=== PATIENT | female | born 1970 | race Caucasian/White ===

== ENCOUNTER 2019-07-15 11:52 | Emergency (ER) | payer MEDICAID, SELFPAY ==
[2019-07-15] VITALS (23 sets, daily range): BP systolic 107–128; BP diastolic 53–81; PULSE 63–87; RESP 10–19; TEMP 36.4–36.9; O2SAT 91–98
[2019-07-15] MEDS: Dexamethasone 10 MG/ML VIAL PO (13:13)
--- NOTE | 2019-07-15 13:26 | ED.GENADUL_ITS ---
Discharge Plan Disposition Patient Disposition: HOME Discharge Details Chief Complaint: GenMedical Clinical Impression: Pneumonia Primary Care Provider: Sofy,Local ED Provider: Rahul Alba Home Meds and New Rx's Prescriptions: New doxycycline hyclate 100 mg tablet 100 mg PO BID Qty: 13 RF: 0 Discharge Instructions Instructions: Pneumonia (ED) Additional Instructions: Please drink plenty of fluid to stay hydrated. Take full course of antibiotic as prescribed. Please contact your primary care physician to arrange follow-up. Call tomorrow to arrange timely follow-up. Return to the ER for any worsening or new concerning symptoms. 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 Patient is hypovolemic. We will give IV fluid bolus. Will give naproxen and Decadron 10 mg IV for throat swelling. Considered strep, rapid strep negative. Consider flu, rapid flu negative. Screening ECG was performed and reviewed and interpreted by me: Sinus rhythm 72 bpm, normal axis, nondiagnostic. Plan to check TSH. Consider pneumonia and will check chest x-ray. 14:25 -- Labs reviewed: nondiagnostic. Flu negative. cxr interpreted by radiology: quesion of opacities in the right mid lung - may rep infiltrate. f/u cxr rec'd to document resolution. if findings persist, CT should be obtained. Radiologist Impression : Abnormal Written by JUDITH VELA on 07/15/2019 --Patient reassessed and continues to have sore throat. Given prior history of cystic structure, consider abscess. Plan to obtain CT of the neck. We will also continue down for CT of the chest given chest x-ray finding. 16:15 --Patient reassessed remained stable. Feeling better. CT of the chest was interpreted by radiology: Right upper lobe pneumonia. CT of the neck was interpreted by radiology: Negative. Plan will be to discharge with close outpatient follow-up with primary care physician. Will start doxycycline for pneumonia (given local resistance to azithromycin and patient has penicillin allergy). Disposition decision was made weighing the risks and benefits of hospitalization versus outpatient treatment, the risk for further decompensation, and the patient's wishes. The patient was stable and requested discharge. Prior to discharge, my usual and customary return precautions were reviewed with the patient - this included follow-up instructions and reason to return to the emergency department if condition worsens, does not improve as expected, or other new concerns arise. HPI General Mode of arrival: ambulatory . Date/Time Provider Initiated Documentation: 07/15/19 12:16 . Limitations to Documentation: no limitations . Information obtained by: patient . 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 Patient notes general fatigue and body aches over the past few days. She states that she initially had headache and sore throat on 07/06/2019. Symptoms progressed and she developed sinus congestion and cough as well as fatigue, fever and diffuse body aches. She also notes recent cough. Symptoms are severe. No modifiers. She has diffuse body aches at this time. No headache. She continues to have sore throat. No difficulty swallowing. Patient is concerned as she had similar fever and body aches when she had thyroid storm in the past. Related Data Home Medications Medication Instructions Recorded Confirmed doxycycline hyclate 100 mg PO BID #13 tab 07/15/19 Previous Rx's Medication Instructions Recorded doxycycline hyclate 100 mg PO BID #13 tab 07/15/19 Allergies Allergy/AdvReac Type Severity Reaction Status Date / Time epinephrine Allergy Unverified 07/15/19 12:02 erythromycin base Allergy Unverified 07/15/19 12:02 Latex, Natural Rubber Allergy Unverified 07/15/19 12:02 Penicillins Allergy Unverified 07/15/19 12:02 General Stated Complaint: GenMedical JACOBO: 3 Review of Systems Constitutional Constitutional: Reports fever(s) and Reports lethargy ENT Ears, Nose, Mouth, and Throat: Reports nasal congestion Respiratory Respiratory: Reports cough Gastrointestinal Gastrointestinal: Denies abdominal pain and Denies nausea Musculoskeletal Musculoskeletal: Reports arthralgias Integumentary/Breasts Skin/Breast: Denies rash [facility] Social History Smoking/Tobacco Use Status: Never Substance use type: does not use Do you feel safe at home: Yes Exam Const General: cooperative and no acute distress HENMT Mouth: moist mucous membranes Throat: posterior oropharynx normal and uvula midline Eyes Conjunctivae: normal conjunctivae Sclera: normal sclerae Neck Neck: trachea midline and supple Resp Auscultation: clear to auscultation bilaterally, no rales, no rhonchi and no wheezes Cardio Jugular venous pressure: no JVD Rate: regular rate and not tachycardic Rhythm: regular rhythm GI Palpation: soft, not firm, no guarding, no masses, not rigid and nontender Skin General skin exam: no rashes or lesions noted Neuro General: alert, awake, oriented x3 and tone normal Extrem General: no edema Psych Appearance: grossly normal Mental Status: mental status grossly normal Speech and Movement: speech and movement normal Course Vital Signs Vital signs: Vital Signs Temperature 36.4 C L 07/15/19 11:56 Pulse 87 07/15/19 11:56 Respiratory Rate 18 07/15/19 11:56 Blood Pressure 113/75 07/15/19 11:56 Pulse Oximetry 96 07/15/19 11:56 Temperature 36.9 C 07/15/19 13:16 Temperature Source Oral 07/15/19 13:16 Pulse 79 07/15/19 12:45 Pulse 80 07/15/19 12:45 Respiratory Rate 18 07/15/19 12:45 Respiratory Effort Non-Labored 07/15/19 12:02 Blood Pressure 121/81 07/15/19 12:45 Blood Pressure Mean 91 07/15/19 12:45 Blood Pressure Position Sitting 07/15/19 11:56 Pulse Oximetry 97 07/15/19 12:45 Oxygen Delivery Method Room Air 07/15/19 11:56 Oxygen Flow Rate 0 07/15/19 11:56 Pain Level 10 07/15/19 11:56 Lab/Test Results Lab/Test Results: 07/15/19 12:20 Nasopharynx Influenza Types A,B Antigen - Final 07/15/19 12:17 Pharynx Streptococcus Screen (RASHMI) - Pending POC Strep Test-AMANDA(Rapid) Start: 07/15/19 12:27 Freq: .Rapid Strep Test Status: Active Protocol: Document 07/15/19 12:28 MR (Rec: 07/15/19 12:28 MR [id number]) Strep test-AMANDA(Rapid)-POC POC-Strep test-AMANDA (Rapid) Negative POC-Strep test-AMANDA (Rapid) Negative
[2019-07-15] MEDS: Naproxen 500 MG TAB PO (13:31)
[2019-07-15] MEDS: Lactated Ringers 1,000 ML 1000 ML IV (13:31)
--- NOTE | 2019-07-15 13:53 | DI.RAD_ITS ---
EXAM: XR CHEST 2V PA AND LATERAL INDICATION: cough. COMPARISON: No exams were available for comparison TECHNIQUE: 2D digital imaging was performed. FINDINGS: Heart size and pulmonary vasculature within normal limits. No pleural effusions or pneumothoraces ar e identified. There is a question of small opacities in the right mid lung. The lungs are otherwise clear. The bones are intact. IMPRESSION: Question of opacities in the right mid lung. This may represent an infiltrate. A follow-up chest x- ray to document clearing of the opacities is recommended. If the findings persist, a CT scan of the chest should be obtained for further evaluation.
[2019-07-15 13:54] LABS: Abs Immature Grans 0.02 k/cumm (0.0-0.09); Absolute Basophil Count 0.03 k/cumm (0.0-0.2); Absolute Eosinophil Count 0.22 k/cumm (0.0-0.7); Absolute Lymphocyte Count 2.04 k/cumm (1.2-3.4); Absolute Monocyte Count 0.81 k/cumm (0.11-0.7); Absolute Neutrophil Count 6.93 k/cumm (1.2-6.7); Basophils % 0.3; Eosinophils % 2.2; HCT 38.5 % (36.0-46.0); HGB 12.6 g/dL (12.0-15.5); Immature Grans % 0.2; Lymphocytes % 20.3; Mean Corp. HGB Concentration 32.7 g/dL (32.0-36.0); Mean Corpuscular Hemoglobin 26.4 pg (27.0-33.0); Mean Corpuscular Volume 80.7 fL (80-95); Monocytes % 8.1; Neutrophils % 68.9; Platelet Count 274 x1000/uL (130-400); RBC 4.77 m/cumm (4.00-5.20); RBC Distribution Width 13.1 % (11.7-14.6); White Blood Cell Count 10.05 k/cumm (4.4-10.8)
[2019-07-15 14:04] LABS: ALT 25 U/L (14-59); AST 17 U/L (15-37); Albumin 3.8 g/dL (3.4-5.0); Alkaline Phosphatase 124 U/L (46-116); Anion Gap 10.3 mmol/L (3-11); BUN 9 mg/dL (7-18); Bilirubin, Total 0.9 mg/dL (0.2-1.0); CO2 27.7 mmol/L (21.0-32.0); CREATININE 0.73 mg/dL (0.55-1.02); Calcium 9.4 mg/dL (8.5-10.1); Chloride 104 mmol/L (98-107); FREE T4 1.12 ng/dL (0.76-1.46); Glucose 93 mg/dL (74-106); Magnesium 1.9 mg/dL (1.8-2.4); Potassium 3.7 mmol/L (3.5-5.1); Sodium 142 mmol/L (136-145); TSH 1.78 uIU/mL (0.36-3.74); Total Protein 7.8 g/dL (6.4-8.2)
[2019-07-15 14:06] LABS: Troponin I < 0.05 ng/Ml (<0.06)
[2019-07-15] MEDS: Omnipaque 350 MG/ML 100 ML BTL IJ (15:04)
--- NOTE | 2019-07-15 15:04 | DI.CT_ITS ---
EXAM: CT NECK CHEST W CLINICAL HISTORY: sore throat, cystic mass in neck in past, PNA cxr? TECHNIQUE: Imaging Protocol: Axial computed tomography images with coronal and sagittal reformatted images were created and reviewed CONTRAST MATERIAL: Intravenous: Omnipaque 350 Contrast volume:100 mL contrast route:IV - Oral: No COMPARISON: XR CHEST 2V PA LATERAL from 07/15/2019 FINDINGS: CT NECK: Parotids/submandibular: Normal. Lymphadenopathy: There is scattered lymph nodes seen along the level one to level three all measurin g less than 8 mm in short axis diameter which are physiologic in nature. Carotids/Jugular: Within normal limits. Soft tissues: The floor the mouth is unremarkable. The epiglottis and vocal cords are within normal limits. Images through both lung apices are unremarkable. Thyroid gland: Unremarkable Oropharynx: Unremarkable. Nasopharynx: Unremarkable. Sinuses: Small mucous retention cysts or polyps are seen in the floors of the maxillary sinuses bilat erally. The remaining visualized paranasal sinuses are clear. Orbits: Unremarkable. CT CHEST: The thoracic aorta is intact. No aneurysmal dilatation is present. Heart: No cardiomegaly. No pericardial effusion. No coronary artery calcifications. Lymph nodes: No significant thoracic adenopathy. Pleural space: No effusion or pneumothorax. Tracheobronchial tree: Unremarkable. Lungs: There is a nodular ground-glass infiltrate in the right upper lobe. This corresponds to the f indings on the chest x-ray. Mild dependent atelectatic changes are seen in the lung bases. No other focal consolidating infiltrates are seen. Bones: Within normal limits for the patient's age. Pulmonary arteries: Contrast bolus timing suboptimal for evaluation for pulmonary emboli. IMPRESSION: 1. Right upper lobe nodular ground-glass infiltrate. Findings are suspicious for pneumonia. A follo w-up chest x-ray should be considered to document complete resolution of the infiltrate. 2. Unremarkable CT scan of the neck. 3. The findings were discussed with the Emergency Department on the date of the examination. DATA REPOSITORY: All CT scans at this facility are submitted to the National Radiology Data Registry (NRDR) Dose Index Registry (DIR) with the [employer] ([employer]). RADIATION OPTIMIZATION: All CT scans at this facility use at least one of these dose optimization te chniques: automated exposure control; mA and/or kV adjustment per patient size (includes targeted exa ms where dose is matched to clinical indication); or iterative reconstruction.
[2019-07-15] MEDS: Normal Saline - Diluent 50 ML VIAL IV (15:07)
[2019-07-15] MEDS: Doxycycline Hyclate 100 MG CAP PO (16:26)
== END 2019-07-15 16:49 | disposition home or self-care (01) ==
PROVIDERS: Emergency Provider Student in an Organized Health Care Education/Training Program
DX: J18.9 Pneumonia, unspecified organism (principal); R09.81 Nasal congestion; J02.9 Acute pharyngitis, unspecified; E86.1 Hypovolemia
CPT/HCPCS: 36415; 70491; 80053; 87449; 87880; 93005; 96360; 99285; 71046; 71260; 83735; 84439; 84443; 84484; 85025; 87081; 93010; 99284; J1100; J3490

== ENCOUNTER 2020-11-16 09:24 | Emergency (ER) | payer MEDICAID, SELFPAY ==
[2020-11-16 09:26] VITALS: BP 159/90; PULSE 76; TEMP 36.6; O2SAT 97
--- NOTE | 2020-11-16 09:45 | DI.CT_ITS ---
EXAM: CT ABDOMEN PELVIS W INDICATION: RLq and flank pain, no po contrast. COMPARISON: No exams were available for comparison TECHNIQUE: FINDINGS: CT examination of the abdomen and pelvis was performed with a bolus infusion of 100 cc of Omnipaque 3 50. Images obtained through the lung bases are unremarkable. The liver is unremarkable in appearance except for a tiny presumed left hepatic lobe cyst seen anteri nini.. Gallbladder and bile ducts are CT normal. Pancreas appears normal. Spleen is unremarkable in appearance. Adrenals appear normal. The kidneys are unremarkable with no evidence of hydronephrosis, nephrolithiasis, or renal mass.. Ur inary bladder unremarkable. Abdominal aorta is of normal diameter and no major vascular abnormality is seen. No abdominal wall hernia. No abdominal or pelvic adenopathy. CHALKER SOLES structures appear intact. Appendix is normal. No evidence of diverticulitis or bowel obstruction. IMPRESSION: Negative CT examination of the abdomen and pelvis. RADIATION DOSE DELIVERED: 1,173.05mGy.cm Total DLP 1,173.05mGy.cm Total DLP RADIATION OPTIMIZATION: All CT scans at this facility use at least one of these dose optimization te chniques: automated exposure control; mA and/or kV adjustment per patient size (includes targeted exa ms where dose is matched to clinical indication); or iterative reconstruction.
--- NOTE | 2020-11-16 09:45 | RT.EKG_ITS ---
APPROVED REPORT Exam: Resting ECG Patient Location: E HR:62 bpm ECG Measurements Heart Rate 62 AXIS MS 162 P 34 QRSd 85 QRS 66 QT 402 T 42 QTc 409 Conclusion Sinus rhythm...normal P axis, V-rate 60- 99
[2020-11-16 10:00] LABS: Bilirubin Negative (Negative); Blood Small (Negative); Clarity Clear (Clear); Glucose Negative (Negative); Ketones Negative (Negative); Leukocyte Esterase Negative (Negative); Nitrite Negative (Negative); Urobilinogen 0.2 EU/dL (Up TO 0.2); pH 5.5 (5-8)
--- NOTE | 2020-11-16 10:01 | W.ED.GENAD ---
Discharge Plan Disposition Patient Disposition: HOME Condition: Good Discharge Details Clinical Impression: Abdominal pain, Hematuria Primary Care Provider: Billie Ly ED Provider: Vanna Tiwari Home Meds and New Rx's Prescriptions: New dicyclomine 20 mg tablet 20 mg PO TID Qty: 14 RF: 0 famotidine [Pepcid] 20 mg tablet 20 mg PO DAILY Qty: 10 RF: 0 Continued pantoprazole 20 mg tablet,delayed release (DR/EC) 20 mg PO DAILY RF: 0 naproxen 500 mg tablet 500 mg PO DAILY PRNRF: 0 Discharge Instructions Instructions: Abdominal Pain (ED) Additional Instructions: Please follow-up with your primary care physician, please follow-up with urology regarding need for blood in your urine Return earlier should you have new or worsening complaints You may try taking the Bentyl as needed for about abdominal pain You may also try discontinuing your pantoprazole and taking the Pepcid instead Referrals: Tavo Montemayor MD [ [facility] PHYSICIAN] - Medical Decision Making CT abdomen pelvis does not show acute pathology per radiology interpretation of my review Diagnostic blood work does not show acute pathology, urinalysis shows evidence of red blood cell Instructed to follow-up with urology although she saw him several months ago Afebrile and nontoxic Return precautions discussed and patient expressed understanding Blood glucose within normal limits, urinalysis does not show acute pathology Recheck in 1 week recommended Differential Diagnosis Differential Diagnosis: Urinary tract infection, bowel obstruction, hypothyroidism, diabetes Medical Records Medical records reviewed: Yes I reviewed the patient's medical records. Lab Data Lab results reviewed: Yes I reviewed the patient's lab results. HPI This 60-year-old female presents with report of abdominal distention, pain in her flank right lower quadrant, general feeling of tiredness, intermittent nausea, urinary frequency. Patient states she felt like this for the past several months but has been worsening this week in terms of her pain. She describes the pain as a cramping sensation. She denies painful urination. She denies any chest pain or shortness of breath. She denies any dizziness or weakness. She denies any new medications. She was last seen by her primary care physician in March. General Date/Time Provider Initiated Documentation: 11/16/20 09:24. Related Data Home Medications Medication Instructions Recorded Confirmed dicyclomine 20 mg PO TID #14 tab 11/16/20 famotidine [Pepcid] 20 mg PO DAILY #10 tab 11/16/20 naproxen 500 mg PO DAILY PRN 11/16/20 11/16/20 pantoprazole 20 mg PO DAILY 11/16/20 11/16/20 Previous Rx's Medication Instructions Recorded dicyclomine 20 mg PO TID #14 tab 11/16/20 famotidine [Pepcid] 20 mg PO DAILY #10 tab 11/16/20 Allergies Allergy/AdvReac Type Severity Reaction Status Date / Time epinephrine Allergy Unverified 11/16/20 09:35 erythromycin base Allergy Unverified 11/16/20 09:35 Latex, Natural Rubber Allergy Unverified 11/16/20 09:35 Penicillins Allergy Unverified 11/16/20 09:35 General Stated Complaint: GenMedical JACOBO: 3 Review of Systems Narrative: Review of systems obtained x7 aside from indication in [facility] Social History Smoking/Tobacco Use Status: Never Smoking risk assessment performed?: Yes Alcohol Intake: current Alcohol Intake frequency: holidays/special occasions only Drug use: Never Substance use type: does not use Do you feel safe at home: Yes Do you feel safe in your relationship?: Yes Exam Const General: cooperative Orientation: alert and oriented x3 HENMT Head: normal to inspection Mouth: oral mucosae normal Chest Chest: normal inspection of the chest Resp Effort & Inspection: normal respiratory effort Auscultation: clear to auscultation bilaterally Cardio Rate: regular rate Rhythm: regular rhythm GI Inspection: normal to inspection Auscultation: normal bowel sounds Other: Mild tenderness with palpation in the right lower quadrant and right flank bilaterally, no abdominal bruit or pulsatile mass Skin General skin exam: no rashes or lesions noted Neuro General: patient alert and patient oriented x3 Course Vital Signs Vital signs: Vital Signs Temperature 36.6 C 11/16/20 09:26 Pulse 76 11/16/20 09:26 Blood Pressure 159/90 H 11/16/20 09:26 Pulse Oximetry 97 11/16/20 09:26 Temperature 36.6 C 11/16/20 09:26 Temperature Source Temporal Artery Scan 11/16/20 09:26 Pulse 76 11/16/20 09:26 Respiratory Effort Non-Labored 11/16/20 09:33 Blood Pressure 159/90 H 11/16/20 09:26 Blood Pressure Position Sitting 11/16/20 09:26 Pulse Oximetry 97 11/16/20 09:26 Oxygen Delivery Method Room Air 11/16/20 09:26 Oxygen Flow Rate 0 11/16/20 09:26 Pain Level 5 11/16/20 09:26
[2020-11-16 10:12] LABS: RBC 0-2 HPF (0-2); WBC 0-2 HPF (0-5)
[2020-11-16 10:13] LABS: Bacteria Negative HPF (Negative); C & S Indicated? No; Casts Negative LPF (Negative); Crystals Negative HPF (Negative); Epithelial Cells Rare HPF (Negative); Mucus Negative (Negative)
[2020-11-16 11:27] LABS: Abs Immature Grans 0.03 10^3/uL (0.0-0.06); Absolute Basophil Count 0.07 10^3/uL (0.0-0.2); Absolute Eosinophil Count 0.14 10^3/uL (0.0-0.7); Absolute Lymphocyte Count 2.65 10^3/uL (1.2-3.4); Absolute Monocyte Count 0.43 10^3/uL (0.1-0.8); Absolute Neutrophil Count 5.34 10^3/uL (1.2-6.7); Basophils % 0.8; Eosinophils % 1.6; HGB 12.5 g/dL (11.2-15.7); Immature Grans % 0.3; Lymphocytes % 30.6; MCH 25.9 pg (27.0-33.0); MCHC 32.1 % (32.0-36.0); MCV 80.7 fL (80-95); MPV 9.1 fL (8.0-11.0); Neutrophils % 61.7; Nucleated RBC 0 %; Platelet Count 280 10^3/uL (130-400); RBC 4.83 10^6/uL (3.93-5.22); RDW-SD 38.2 fL; WBC 8.66 10^3/uL (4.4-10.8)
[2020-11-16 11:53] LABS: ALT 36 U/L (14-59); AST 22 U/L (15-37); Albumin 4.1 g/dL (3.4-5.0); Alkaline Phosphatase 109 U/L (46-116); Anion Gap 10.1 mmol/L (3-11); BUN 14 mg/dL (7-18); Bilirubin, Total 0.7 mg/dL (0.2-1.0); CO2 26.9 mmol/L (21.0-32.0); CREATININE 0.9 mg/dL (0.55-1.02); Calcium 9.5 mg/dL (8.5-10.1); Chloride 106 mmol/L (98-107); Glucose 85 mg/dL (74-106); Lipase 142 U/L (73-393); Potassium 3.8 mmol/L (3.5-5.1); Sodium 143 mmol/L (136-145); TSH (W/Ref FT4) 2.31 uIU/mL (0.36-3.74); Total Protein 7.7 g/dL (6.4-8.2)
[2020-11-16 11:56] LABS: Troponin I < 0.05 ng/mL (<0.06)
[2020-11-16] MEDS: Omnipaque 350 MG/ML 100 ML BTL IJ (12:04)
[2020-11-16] MEDS: Normal Saline - Diluent 50 ML VIAL IV (12:05)
[2020-11-16 12:11] VITALS: BP 111/64; PULSE 65; RESP 16; TEMP 36.4; O2SAT 100
[2020-11-16 12:13] VITALS: RESP 16
== END 2020-11-16 12:39 | disposition home or self-care (01) ==
PROVIDERS: Emergency Provider Physician Assistant; PCP Family Medicine
DX: R31.9 Hematuria, unspecified (principal); R10.31 Right lower quadrant pain
CPT/HCPCS: 80053; 83690; 93005; 99285; 74177; 81003; 81015; 84443; 84484; 85025; 93010; 99283; J3490

== ENCOUNTER 2021-03-04 04:47 | Outpatient (CLI) | payer MEDICAID, SELFPAY ==
--- NOTE | 2021-03-04 | DI.MAMMO_ITS ---
Exam(s) MAMMO SCREENING EXAM: MAMMO SCREENING CLINICAL HISTORY: SCREENING, Z12.39. TECHNIQUE: Bilateral full field digital CC and MLO mammographic images were obtained with 3D tomosyn thesis and utilizing computer aided detection (CAD). COMPARISON: Prior outside mammograms dating back to 2012, the most recent being February 2018. FINDINGS: In the posterior medial aspect of the left breast there is a 5 x 4 millimeter noncalcified nodule lo cated 12 cm in from the nipple, towards the superior aspect breast. In the opposite-right breast there is suggestion 7 x 5 millimeter noncalcified nodule laterally, appr oximately 10 cm in from the nipple as seen on the CC 3D view. No malignant-appearing microcalcification groups evident in either breast There is no significant architectural distortion nor skin thickening-retraction. IMPRESSION: Single nodular density in each breast. Spot compression cc views both breast recommended as well as bilateral breast ultrasound. BI-RADS Category 0 - Assessment Incomplete: Need additional imaging evaluation Breast Density - Category C - Heterogeneously dense Breast density Category C or D implies that the patient has dense breast tissue. Dense breast tissue can make it harder to find cancer on a mammogram. Dense breast tissue is also associated with an incr eased risk of breast cancer. This information about the result of the mammogram report was provided to the patient to raise their awareness. Use this report when you speak with the patient about their risks for breast cancer, which includes their family history. At that time, you may recommend additional screening tests (Ultrasoun d or MRI) as these tests may add significant information. A negative radiographic report should not delay biopsy if a dominant or clinically suspicious mass is present. Up to ten percent of cancers are not identified on mammography. A negative report may reinforce clinical impression. Adenosis and dense breasts may obscure an underlying neoplasm. False positive reports average 6 to 10%. Patient will receive a letter notifying them of these results.
== END 2021-03-04 05:07 ==
PROVIDERS: PCP Nurse Practitioner Family; Visit Provider Nurse Practitioner Family
DX: Z12.31 Encounter for screening mammogram for malignant neoplasm of breast (principal); R92.8 Other abnormal and inconclusive findings on diagnostic imaging of breast
CPT/HCPCS: 77063; 77067

== ENCOUNTER 2021-03-08 14:33 | Outpatient (REF) | payer MEDICAID, SELFPAY ==
[2021-03-08 19:57] LABS: HCT 38.5 % (36.0-46.0); HGB 12.5 g/dL (11.2-15.7); MCH 26.1 pg (27.0-33.0); MCHC 32.5 % (32.0-36.0); MCV 80.4 fL (80-95); MPV 10.3 fL (8.0-11.0); Platelet Count 292 10^3/uL (130-400); RBC 4.79 10^6/uL (3.93-5.22); RDW 13.4 % (11.7-14.6); RDW-SD 39.2 fL; WBC 7.86 10^3/uL (4.4-10.8)
[2021-03-08 20:00] LABS: ESR 25 mm/hr (0-30)
[2021-03-08 20:17] LABS: Anion Gap 12.5 mmol/L (3-11); BUN 12 mg/dL (7-18); CO2 25.5 mmol/L (21.0-32.0); CREATININE 0.9 mg/dL (0.55-1.02); Calcium 9.5 mg/dL (8.5-10.1); Chloride 106 mmol/L (98-107); Glucose 86 mg/dL (74-106); Potassium 3.8 mmol/L (3.5-5.1); Sodium 144 mmol/L (136-145); TSH (W/Ref FT4) 1.62 uIU/mL (0.36-3.74)
[2021-03-09 16:17] LABS: Rheumatoid Factor <8.6 IU/mL (<12.0)
== END 2021-03-08 14:34 | disposition home or self-care (01) ==
LOC: NCHCN 14:33
PROVIDERS: PCP Nurse Practitioner Family; Visit Provider Nurse Practitioner Family
DX: M25.561 Pain in right knee (principal); M25.562 Pain in left knee; M79.7 Fibromyalgia; Q79.60 Ehlers-Danlos syndrome, unspecified; M06.9 Rheumatoid arthritis, unspecified; R60.9 Edema, unspecified
CPT/HCPCS: 80048; 85027; 85652; 84443; 86431

== ENCOUNTER 2021-03-25 03:07 | Outpatient (CLI) | payer MEDICAID, SELFPAY ==
--- NOTE | 2021-03-25 | DI.MAMMO_ITS ---
Exam(s) US BREAST RT LIMITED US BREAST LT LIMITED MG MAMMO SCREEN CALL BACK BI EXAM: MG MAMMO SCREEN CALL BACK BI and U/S breast bilateral limited CLINICAL HISTORY: F/U MAMMO, BILAT NODULES. TECHNIQUE: Craniocaudal and mediolateral oblique Full Field Digital Mammography views of the bilater al breast with Computer Aided Diagnosis followed by Tomosynthesis and bilateral breast ultrasound. COMPARISON: Priors available for comparison. FINDINGS: Mammography/Tomosynthesis: Masses/Architectural Distortion: There is again seen a well-circumscribed nodule in the outer right b reast. There is also well-circumscribed nodule which persists in the medial aspect of the left breas t. Microcalcifictions: No suspicious pleomorphic-type are seen. Skin Thickening/Nipple Retraction: None. Bilateral breast US: Echotexture: Normal appearance of the glandular tissue. Shadowing: No suspicious foci. Cyst: In the right breast, at the 8 o'clock position 7 cm from the nipple there is a 0.6 x 0.4 x 0.6 cm cyst with internal debris. This corresponds to the mammographic abnormality. No cystic or solid lesion is seen in the left breast to correspond to the mammographic abnormality. Solid lesions: None seen. Ductal dilation: None. IMPRESSION: 1. No evidence of malignancy is noted. 2. A six-month follow-up bilateral mammogram and ultrasound are requested for re-evaluation. 3. The findings were discussed with the patient on the date of the examination. BI-RADS Category 3 - 6 month - Probably Benign Finding: Recommend follow-up imaging in 6 months Breast Density - Category B - Scattered areas of fibroglandular density Breast density Category C or D implies that the patient has dense breast tissue. Dense breast tissue can make it harder to find cancer on a mammogram. Dense breast tissue is also associated with an incr eased risk of breast cancer. This information about the result of the mammogram report was provided to the patient to raise their awareness. Use this report when you speak with the patient about their risks for breast cancer, which includes their family history. At that time, you may recommend additional screening tests (Ultrasoun d or MRI) as these tests may add significant information. A negative radiographic report should not delay biopsy if a dominant or clinically suspicious mass is present. Up to ten percent of cancers are not identified on mammography. A negative report may reinforce clinical impression. Adenosis and dense breasts may obscure an underlying neoplasm. False positive reports average 6 to 10%. Patient will receive a letter notifying them of these results.
== END 2021-03-25 03:27 ==
PROVIDERS: PCP Nurse Practitioner Family; Visit Provider Nurse Practitioner Family
DX: Z12.31 Encounter for screening mammogram for malignant neoplasm of breast (principal); R92.8 Other abnormal and inconclusive findings on diagnostic imaging of breast; N63.20 Unspecified lump in the left breast, unspecified quadrant; N63.10 Unspecified lump in the right breast, unspecified quadrant
CPT/HCPCS: 76642; 77063; 77067

== ENCOUNTER 2021-04-26 02:17 | Outpatient (CLI) | payer MEDICAID, SELFPAY ==
--- NOTE | 2021-04-26 | DI.US_ITS ---
Exam(s) US HERNIA EXAM: US HERNIA CLINICAL HISTORY: INGUINAL LYMPHADENOPATHY,R59.0. TECHNIQUE: Ultrasound was performed using standard protocol. COMPARISON: CT CT ABDOMEN PELVIS W from 11/16/[address] ABDOMEN PELVIS W from 11/16/2020 FINDINGS: Sonographic assessment utilizing grayscale and color Doppler imaging was performed and targeted to th e area of clinical concern. Right groin region was scanned. Multiple lymph nodes are identified which have a Normal reniform shape a maintain a central fatty hil um. There is no abnormal blood flow. The largest lymph nodes measure 1.7 and 3.2 cm in length. IMPRESSION: Right groin lymph nodes have normal appearance. DATA REPOSITORY:
--- NOTE | 2021-04-26 | DI.US_ITS ---
Exam(s) US AXILLA RT EXAM: US AXILLA RT CLINICAL HISTORY: RT AXILLA LYMPHADENOPATHY,R59.0 TECHNIQUE: Ultrasound right axilla performed using standard protocol. COMPARISON: CT CT NECK CHEST W from 07/15/[address] NECK CHEST W from 07/15/2019 FINDINGS: Lymph nodes are demonstrated in the right axilla which maintain a normal fatty hilum and range from 1 .2 cm to 2.9 cm. No suspicious lymph nodes are identified. IMPRESSION: No sonographically suspicious finding. DATA REPOSITORY:
== END 2021-04-26 02:37 ==
PROVIDERS: PCP Nurse Practitioner Family; Visit Provider Nurse Practitioner Family
DX: R59.0 Localized enlarged lymph nodes (principal)
CPT/HCPCS: 76642; 76857

== ENCOUNTER 2021-05-06 10:46 | Outpatient (CLI) | payer MEDICAID, SELFPAY ==
--- NOTE | 2021-05-06 10:00 | DI.RAD_ITS ---
Exam(s) XR HIP RT COMPLETE AP PELVIS EXAM: XR HIP RT COMPLETE AP PELVIS CLINICAL HISTORY: pain. TECHNIQUE: 2D digital imaging was performed of the right hip. Two images were obtained. AP pelvis a nd lateral right hip views were obtained. COMPARISON: No exams were available for comparison FINDINGS: BONES: No acute fracture is present. No bony destructive lesion is seen. JOINTS: No dislocation present. SOFT TISSUE: Normal. IMPRESSION: Unremarkable radiographs of the right hip. Unremarkable radiographs of the pelvis. DATA REPOSITORY: RADIATION DOSE DELIVERED:
== END 2021-05-06 10:47 | disposition home or self-care (01) ==
LOC: DIORS 10:46
PROVIDERS: PCP Nurse Practitioner Family; Referring Provider Nurse Practitioner Family; Visit Provider Physician Assistant Surgical
DX: M25.551 Pain in right hip (principal)
CPT/HCPCS: 73502

== ENCOUNTER 2021-06-24 19:19 | Outpatient (REF) | payer MEDICAID, SELFPAY ==
[2021-06-24 19:36] LABS: HGB 12.9 g/dL (11.2-15.7); MCH 26.1 pg (27.0-33.0); MCHC 32.3 % (32.0-36.0); MPV 10.3 fL (8.0-11.0); Platelet Count 313 10^3/uL (130-400); RBC 4.94 10^6/uL (3.93-5.22); RDW 12.6 % (11.7-14.6); RDW-SD 37.2 fL; WBC 10.12 10^3/uL (4.4-10.8)
[2021-06-24 20:02] LABS: ESR 32 mm/hr (0-30)
[2021-06-24 22:19] LABS: BUN 9 mg/dL (7-18); CREATININE 0.9 mg/dL (0.55-1.02); Calcium 10.1 mg/dL (8.5-10.1); Glucose 81 mg/dL (74-106)
[2021-06-24 22:20] LABS: ALT 27 U/L (14-59); AST 21 U/L (15-37); Albumin 4.7 g/dL (3.4-5.0); Alkaline Phosphatase 112 U/L (46-116); Anion Gap 11.8 mmol/L (3-11); Bilirubin, Total 0.6 mg/dL (0.2-1.0); C-Reactive Protein 0.55 mg/dL (0.0-0.3); CO2 26.2 mmol/L (21.0-32.0); Chloride 106 mmol/L (98-107); Sodium 144 mmol/L (136-145); TSH (W/Ref FT4) 1.82 uIU/mL (0.36-3.74)
[2021-06-27 10:41] LABS: Lyme Ab w Rflx to Lyme Confirm Negative (Negative)
[2021-06-28 09:00] LABS: Anaplasma phagocytophilum Negative (Negative); B. miyamotoi PCR Negative (Negative); Babesia divergens/MO-1 Negative (Negative); Babesia duncani Negative (Negative); Babesia microti Negative (Negative); Ehrlichia chaffeensis Negative (Negative); Ehrlichia ewingii/canis Negative (Negative); Ehrlichia muris eauclairensis Negative (Negative)
== END 2021-06-24 19:20 | disposition home or self-care (01) ==
LOC: NCHCN 19:19
PROVIDERS: PCP Nurse Practitioner Family; Visit Provider Nurse Practitioner Family
DX: M25.59 Pain in other specified joint (principal)
CPT/HCPCS: 80053; 85027; 85652; 87798; 84443; 86140; 86618

== ENCOUNTER 2021-07-14 11:34 | Outpatient (REF) | payer MEDICAID, SELFPAY ==
--- NOTE | 2021-07-14 10:40 | PAPFT_PTH ---
PATIENT: Yumiko Chang LOC: [facility] U#:[id number] AGE/SX: 51/F ROOM: RE07/14/[address]: Sara Sherman DO : 1970 BED: DIS: 07/14/2021 SPEC #: [id number] RECD: 07/14/21 17:12 STATUS: BETTY REQ #: [id number] KIRSTIN: 07/14/21 10:[address]: Sara Sherman DEPT: [facility] Cytology RECD BY: Vanna Berry ENTERED: 07/14/21 17:12 SP TYPE: PAPFT OTHR DR: Yvette Reyes Tissues: 1 - CX/ENDOCX FOR PAP SMEARS Procedures: PAP THIN PREP/[facility] Screening HPV DNA PROBE Comments: [id number]
== END 2021-07-14 11:35 | disposition home or self-care (01) ==
LOC: LBN 11:34
PROVIDERS: PCP Nurse Practitioner Family; Visit Provider Obstetrics & Gynecology
DX: Z12.4 Encounter for screening for malignant neoplasm of cervix (principal); Z11.51 Encounter for screening for human papillomavirus (HPV)
CPT/HCPCS: 88142; 87624

== ENCOUNTER 2021-08-09 15:44 | Outpatient (REF) | payer MEDICAID, SELFPAY ==
--- NOTE | 2021-08-09 15:05 | VUL_PTH ---
PATIENT: Yumiko Chang LOC: N U#:[id number] AGE/SX: 51/F ROOM: RE08/09/[address]: Sara Sherman DO : 1970 BED: DIS: 08/09/2021 SPEC #: [id number] RECD: 08/09/21 16:53 STATUS: SOUNila REQ #: [id number] KIRSTIN: 08/09/21 15:[address]: Sara Sherman DEPT: Surgical Specimen RECD BY: Vanna Berry ENTERED: 08/09/21 16:55 SP TYPE: VUL OTHR DR: Yvette Reyes Tissues: 1 - VULVA BIOPSY Procedures: GROSS AND MICRO LEVEL 4 Comments: [id number]
== END 2021-08-09 15:45 | disposition home or self-care (01) ==
LOC: LBN 15:44
PROVIDERS: PCP Nurse Practitioner Family; Visit Provider Obstetrics & Gynecology
DX: N90.0 Mild vulvar dysplasia (principal)
CPT/HCPCS: 88305

== ENCOUNTER 2021-08-16 01:11 | Outpatient (CLI) | payer MEDICAID, SELFPAY ==
--- NOTE | 2021-08-16 | DI.US_ITS ---
Exam(s) US SOFT TISSUE EXTREMITY EXAM: US SOFT TISSUE EXTREMITY CLINICAL HISTORY: MASS LEFT LEG R22.42. TECHNIQUE: Ultrasound was performed using standard protocol. COMPARISON: US US SOFT TISSUE EXTREMITY from 08/16/2021 FINDINGS: Sonographic assessment utilizing grayscale and color Doppler imaging was performed and targeted to th e area of clinical concern. Sonographic evaluation of the posterior left knee was performed. No cystic or solid masses are seen. IMPRESSION: Negative sonographic evaluation of the posterior left knee. DATA REPOSITORY:
--- NOTE | 2021-08-16 | DI.US_ITS ---
Exam(s) US AXILLA LT EXAM: US AXILLA LT CLINICAL HISTORY: AXILLARY LYMPHADENOPATHY R59.0 TECHNIQUE: Ultrasound left axilla performed using standard protocol. COMPARISON: No exams were available for comparison FINDINGS: No solid or cystic masses, hypoechoic foci, areas of abnormal shadowing, or areas of skin thickening. There 3 by sonographically benign-appearing lymph nodes seen in the left axilla. The largest measur es 2 x 0.7 x 1.1 cm. IMPRESSION: Sonographically benign-appearing lymph nodes in the left axilla. No suspicious cystic or solid michael s. DATA REPOSITORY:
--- NOTE | 2021-08-16 | DI.US_ITS ---
Exam(s) US SOFT TISSUE EXTREMITY EXAM: US SOFT TISSUE EXTREMITY CLINICAL HISTORY: MASS RT LEG R22.41. TECHNIQUE: Ultrasound was performed using standard protocol. COMPARISON: No exams were available for comparison FINDINGS: Sonographic assessment utilizing grayscale and color Doppler imaging was performed and targeted to th e area of clinical concern. Sonographic evaluation of the of the right thigh was performed in the areas of palpable concern. No cystic or solid masses are seen sonographically. IMPRESSION: Negative sonographic evaluation of the right thigh. DATA REPOSITORY:
== END 2021-08-16 01:31 ==
PROVIDERS: PCP Nurse Practitioner Family; Visit Provider Nurse Practitioner Family
DX: R22.42 Localized swelling, mass and lump, left lower limb (principal); R22.41 Localized swelling, mass and lump, right lower limb; R59.0 Localized enlarged lymph nodes
CPT/HCPCS: 76642; 76881

== ENCOUNTER 2021-09-27 00:49 | Outpatient (CLI) | payer MEDICAID, SELFPAY ==
--- NOTE | 2021-09-27 | DI.US_ITS ---
Exam(s) US THYROID EXAM: US THYROID CLINICAL HISTORY: THYROID DISORDER, E07.9,h/o hypoechoic regions bilat,f/u 04/18/18. TECHNIQUE: Ultrasound thyroid performed using standard protocol. COMPARISON: US US SOFT TISSUE HEAD OR NECK from 04/18/2018 ([facility]) FINDINGS: There has been significant change when compared to the prior outside ultrasound examination of 2017. Today's study reveals a normal appearing thyroid gland. Both thyroid lobes exhibit normal size and h omogeneous echotexture, as does the isthmus. There are no nodules in either lobe and the previously described large area of abnormal enlargement and hypo echogenicity in the right lobe has resolved, wi th no obvious imaging sequelae at this level. There are few small benign-appearing lymph nodes bilaterally There is no significant hyperemia in the gland at this time. IMPRESSION: Unremarkable thyroid ultrasound exam. See above discussion. There has been significant improvement when compared to the findings on the prior outside ultrasound examination performed April 18, 2018 at [facility] DATA REPOSITORY:
== END 2021-09-27 01:09 ==
PROVIDERS: PCP Nurse Practitioner Family; Visit Provider Nurse Practitioner Family
DX: E07.89 Other specified disorders of thyroid (principal)
CPT/HCPCS: 76536

== ENCOUNTER 2021-10-05 00:38 | Outpatient (CLI) | payer MEDICAID, SELFPAY ==
--- NOTE | 2021-10-05 13:30 | DI.MAMMO_ITS ---
Exam(s) MAMMO DIAGNOSTIC BI EXAM: MAMMO DIAGNOSTIC BI CLINICAL HISTORY: FOLLOW UP EXAM Z09, 6 MO FU TECHNIQUE: Mammograms were interpreted according to the usual protocol including computer analysis w Datagu[employer] CAD system, tomosynthesis and 2D and C-view imaging. COMPARISON: 04 March in 25 March 2021 and exams back to 2012. FINDINGS: Left breast: No suspicious masses or suspicious microcalcifications. No change versus slight decreas e in size of posterior nodule and in the upper inner quadrant the left breast, likely a lymph node. Right breast: Previously noted area of nodularity in the lateral right breast is not seen on the curr ent exam. A cyst was demonstrated on the prior study. IMPRESSION: BI-RADS Category 2 - Benign Findings, yearly screening mammography is recommended. Breast Density - Category B - Scattered areas of fibroglandular density A negative radiographic report should not delay biopsy if a dominant or clinically suspicious mass is present. Up to ten percent of cancers are not identified on mammography. A negative report may reinforce clinical impression. Adenosis and dense breasts may obscure an underlying neoplasm. False positive reports average 6 to 10%. Patient will receive a letter notifying them of these results. The patient will receive a letter notifying them of these results.
== END 2021-10-05 00:58 ==
PROVIDERS: PCP Nurse Practitioner Family; Visit Provider Nurse Practitioner Family
DX: Z09 Encounter for follow-up examination after completed treatment for conditions other than malignant neoplasm (principal)
CPT/HCPCS: 77062; 77066; G0279

== ENCOUNTER 2023-02-15 13:00 | Outpatient (REF) | payer MEDICAID, SELFPAY ==
[2023-02-15 16:39] LABS: Bilirubin Negative (Negative); Blood Trace-lysed (Negative); Clarity Clear (Clear); Glucose Negative (Negative); Ketones Negative (Negative); Leukocyte Esterase Negative (Negative); Nitrite Negative (Negative); Specific Gravity 1.015 (1.005-1.025); Urobilinogen 0.2 mg/dL (Up to 0.2)
[2023-02-15 16:50] LABS: Abs Immature Grans 0.03 10^3/uL (0.0-0.06); Absolute Basophil Count 0.06 10^3/uL (0.0-0.2); Absolute Lymphocyte Count 2.74 10^3/uL (1.2-3.4); Absolute Monocyte Count 0.47 10^3/uL (0.1-0.8); Absolute Neutrophil Count 5.31 10^3/uL (1.2-6.7); Basophils % 0.7; Eosinophils % 2.3; HCT 39.3 % (36.0-46.0); HGB 12.8 g/dL (11.2-15.7); Immature Grans % 0.3; Lymphocytes % 31.1; MCH 26.5 pg (27.0-33.0); MCHC 32.6 % (32.0-36.0); MCV 81 fL (80-95); Monocytes % 5.3; Neutrophils % 60.3; Platelet Count 300 10^3/uL (130-400); RBC 4.83 10^6/uL (3.93-5.22); RDW 12.8 % (11.7-14.6); RDW-SD 37.6 fL; WBC 8.81 10^3/uL (4.4-10.8)
[2023-02-15 17:21] LABS: Bacteria Negative HPF (Negative); C & S Indicated? No; Casts Negative LPF (Negative); Crystals Negative HPF (Negative); Epithelial Cells Few HPF (Negative); Mucus Negative (Negative); RBC 0-2 HPF (0-2); WBC 0-2 HPF (0-5)
[2023-02-15 18:03] LABS: ALT 33 U/L (14-59); AST 37 U/L (15-37); Albumin 4.4 g/dL (3.4-5.0); Alkaline Phosphatase 99 U/L (46-116); Anion Gap 11.7 mmol/L (3-11); BUN 6 mg/dL (7-18); CO2 26.3 mmol/L (21.0-32.0); CREATININE 0.9 mg/dL (0.55-1.02); Calcium 9.3 mg/dL (8.5-10.1); Calculated LDL 143 mg/dL (<100); Chloride 106 mmol/L (98-107); Cholesterol 223 mg/dL (<200); Glucose 85 mg/dL (74-106); HDL Cholesterol 60 mg/dL (40-60); Potassium 3.8 mmol/L (3.5-5.1); Sodium 144 mmol/L (136-145); TSH (W/Ref FT4) 1.16 uIU/mL (0.36-3.74); Total Protein 7.4 g/dL (6.4-8.2); Triglyceride 104 mg/dL (<150)
[2023-02-15 18:28] LABS: Vitamin D 25 Total 20.7 ng/mL (30-100)
== END 2023-02-15 13:01 | disposition home or self-care (01) ==
LOC: LBN 13:00
PROVIDERS: PCP Nurse Practitioner Family; Visit Provider Nurse Practitioner Family
DX: N28.9 Disorder of kidney and ureter, unspecified (principal); E07.9 Disorder of thyroid, unspecified; R60.9 Edema, unspecified; R59.0 Localized enlarged lymph nodes
CPT/HCPCS: 80053; 80061; 82306; 81003; 81015; 84443; 85025

== ENCOUNTER → 2024-01-01 04:38 | Outpatient (CLI) | payer MEDICAID, SELFPAY ==
--- NOTE | 2024-01-01 07:45 | DI.MAMMO_ITS ---
Exam(s) MAMMO SCREENING EXAM: MAMMO SCREENING CLINICAL HISTORY: screening,z12.39 TECHNIQUE: Mammograms were interpreted according to the usual protocol including computer analysis w [employer] CAD system, tomosynthesis and C-view imaging. COMPARISON: 2014 through 2021 FINDINGS: The breasts are composed of scattered fibroglandular densities, Breast Density category B. No suspicious masses or suspicious microcalcifications are seen. No skin thickening or abnormal axillary lymph nodes are seen. There has been no significant change from prior exams. IMPRESSION: BI-RADS Category 1, Negative mammogram Yearly screening mammography is recommended. Breast Density - Category B, scattered fibroglandular densities. A negative radiographic report should not delay biopsy if a dominant or clinically suspicious mass is present. Up to ten percent of cancers are not identified on mammography. A negative report may reinforce clinical impression. Adenosis and dense breasts may obscure an underlying neoplasm. False positive reports average 6 to 10%. Patient will receive a letter notifying them of these results.
== END ==
PROVIDERS: PCP Nurse Practitioner Family; Visit Provider Obstetrics & Gynecology
DX: Z12.31 Encounter for screening mammogram for malignant neoplasm of breast (principal)
CPT/HCPCS: 77063; 77067

== ENCOUNTER 2024-03-20 22:03 | Outpatient (REF) | payer MEDICAID, SELFPAY ==
[2024-03-20 15:25] LABS: ALT 31 U/L (14-59); AST 26 U/L (15-37); Alkaline Phosphatase 83 U/L (46-116); Anion Gap 8.7 mmol/L (3-11); BUN 16 mg/dL (7-18); Bilirubin, Total 1.17 mg/dL (0.2-1.0); CO2 28.3 mmol/L (21.0-32.0); CREATININE 0.8 mg/dL (0.55-1.02); Calcium 9.8 mg/dL (8.5-10.1); Calculated LDL 151 mg/dL (<100); Chloride 105 mmol/L (98-107); Cholesterol 230 mg/dL (<200); Estimated GFR 86.42 (mL/min/1.73m2); Glucose 90 mg/dL (74-106); HDL Cholesterol 64 mg/dL (40-60); Potassium 3.6 mmol/L (3.5-5.1); Sodium 142 mmol/L (136-145); Total Protein 7.4 g/dL (6.4-8.2); Triglyceride 78 mg/dL (<150)
[2024-03-20 15:27] LABS: Hemoglobin A1C 5.3 % (<5.7)
--- OUTSIDE RECORDS SUMMARY | 2024-03-20 22:06 | XMS_ITS | Encounter Summary ---
Author Organization [facility] Address [address] [place] [address] Care Team Providers Care Development Technologist Name Role Phone Unknown, Provider Primary Care Provider [phone] Yen Mccall MD Primary Care Provider [phone] Encounter Details Date Type Department Care Team (Late st Contact Info) Description 11/05/2001 Results Only [facility] - Maple conversion [address] [place] [address] Avinash Davis MD Social History Tobacco Use Types Packs/Day Years Used Date Smoking Tobacco: Never Assessed Sex and Gender Information Value Date Recorded Sex Assigned at Not on file Gender Identity Not on file Sexual Orientation Not on file documented as of this encounter Plan of Treatment Not on file documented as of this encounter Procedures Procedure Name Priority Date/Time Associated Diagnosis Comments CYTOPATHOLOGY Routine 11/05/2001 0:00 EST documented in this encounter Results * CYTOPATHOLOGY (11/05/2001 0:00 EST) Pathology Report: CYTOPATHOLOGY REPORT Reports generated via electronic interface contain original data; however they are lacking the format of the original report. Caution should be taken when reading/interpreti ng unformatted reports. Name: ? AFTAB DE LEON ? Accession #: ? [id number] : ? 1970 (Age: 31) ??F ?Collect Date: ? 11/05/2001 Location: ? [facility] ? Receive Date: ? 11/07/2001 Provider: ?AVINASH DAVIS MD Copy to: ? Specimen/Source: ?ThinPrep Pap Test, Cervix/Endocervix Last Menstrual Period: ? 10/09/01 Other: ? Client ID#: [id number] ? SPECIMEN ADEQUACY ? Satisfactory for Evaluation - transformation zone component present GENERAL CATEGORIZATION ? Negative for Intraepithelial Lesion or Malignancy INTERPRETATION ? Reactive cellular changes associated with inflammation present (includes repair). ? Document reviewed and electronically signed by: ? SANTIAGO EDWARDS MD [facility] ? Report Date: ??11/14/2001 16:15 End of Report [facility] 11/05/2001 11/07/2001 Avinash Davis MD PATHOLOGY ORDERABLES Performing Organization Address City/State/[facility] Co de Phone Number [facility] [address] [place] [address] documented in this encounter Visit Diagnoses Not on filedocumented in this encounter Care Teams Development Technologist Relationship Specialty Start Date End Date Unknown, Provider, PCP - General 12/01/09 [place] [address] [place] [phone] PCP - General 02/24/09 11/30/09 documented as of this encounter
--- OUTSIDE RECORDS SUMMARY | 2024-03-20 22:06 | XMS_ITS | Encounter Summary ---
Author Organization [facility] Address [address] [place] [address] Care Team Providers Care Machine Applicator Cementer Name Role Phone Unknown, Provider Primary Care Provider [phone] Encounter Details Date Type Department Care Team (Late st Contact Info) Description 06/25/2021 Lab Requisition [facility] Pathology & Laboratory Medicine - [facility] [address] [place] [address] Outr Resulting Lab, Provider Social History Tobacco Use Types Packs/Day Years Used Date Smoking Tobacco: Never Assessed Sex and Gender Information Value Date Recorded Sex Assigned at Not on file Gender Identity Not on file Sexual Orientation Not on file documented as of this encounter Plan of Treatment Not on file documented as of this encounter Procedures Procedure Name Priority Date/Time Associated Diagnosis Comments LYME AB Routine 06/24/2021 14:10 EST documented in this encounter Results * LYME AB (06/24/2021 14:10 EST) Lyme Ab Negative Negative 06/27/2021 10:37 EST [facility] Blood VENOUS BLOOD / Unknown 06/24/2021 14:10 EST 06/26/2021 15:59 EST Provider Outr Resulting Lab IMMUNOLOGY A ND SEROLOGY ORDERABLES [facility] [address] [place] [address] documented in this encounter Visit Diagnoses Not on filedocumented in this encounter Care Teams Machine Applicator Cementer Relationship Specialty Start Date End Date Unknown, ProviderMD PCP - General 12/01/09 documented as of this encounter
--- OUTSIDE RECORDS SUMMARY | 2024-03-20 22:06 | XMS_ITS | Encounter Summary ---
Author Organization [facility] Address [address] [place] [address] Care Team Providers Care Compress Trucker Name Role Phone Unknown, Provider Primary Care Provider [phone] Encounter Details Date Type Department Care Team (Late st Contact Info) Description 03/09/2021 Lab Requisition [facility] Pathology & Laboratory Medicine - [facility] [address] [place] [address] Outr Resulting Lab, Provider Social History Tobacco [...] Procedure Name Priority Date/Time Associated Diagnosis Comments RHEUMATOID FACTOR Routine 03/08/2021 14: 15 EDT documented in this encounter Results * RHEUMATOID FACTOR (03/08/2021 14:15 EDT) Rheumatoid Factor <8.6 <12.0 IU/mL 03/09/2021 16:[address] [facility] Blood VENOUS BLOOD / Unknown 03/08/2021 14:15 EDT 03/09/2021 15:51 EDT Provider Outr Resulting Lab CHEMISTRY & BLOOD GAS ORDERABLES [facility] [address] [place] [address] documented in this encounter Visit Diagnoses Not on filedocumented in this encounter Care Teams Compress Trucker Relationship Specialty Start Date End Date Unknown, Provider, PCP - General 12/01/09 documented as of this encounter
--- OUTSIDE RECORDS SUMMARY | 2024-03-20 22:06 | XMS_ITS | Referral Summary ---
Author Organization [facility] Address [address] [place] [address] Care Team Providers Care Corporate Lawyer Name Role Phone Unknown, Provider Primary Care Provider Social History Tobacco Use Types Packs/Day Years Used Date Smoking Tobacco: Never Assessed Sex and Gender Information Value Date Recorded Sex Assigned at Not on file Gender Identity Not on file Sexual Orientation Not on file Plan of Treatment Not on file Care Teams Corporate Lawyer Relationship Specialty Start Date End Date Unknown, Provider, PCP - General 12/01/09
--- OUTSIDE RECORDS SUMMARY | 2024-03-20 22:06 | XMS_ITS | Encounter Summary ---
Author Organization [facility] Address [address] [place] [address] Care Team Providers Care Clinical Resource Manager Name Role Phone Unknown, Provider Primary Care Provider [phone] Encounter Details Date Type Department Care Team (Late st Contact Info) Description 08/10/2021 Lab Requisition [facility] Pathology & Laboratory Medicine - [facility] [address] [place] [address] [address] Sherman [address] [place] [address] [place] [address] Encounter for other general examination Social History Tobacco Use Types Packs/Day Years Used Date Smoking Tobacco: Never Assessed Sex and Gender Information Value Date Recorded Sex Assigned at Not on file Gender Identity Not on file Sexual Orientation Not on file documented as of this encounter Plan of Treatment Not on file documented as of this encounter Procedures Procedure Name Priority Date/Time Associated Diagnosis Comments SURGICAL PATHOLOGY Today 08/09/2021 15 :05 EST Encounter for other general examination documented in this encounter Results * SURGICAL PATHOLOGY (08/09/2021 15:05 EST) Note to Patient The following pathology results have been interpreted by your pathologist and may be available to you before your health provider has had the opportunity to review them. Please allow time for your provider to receive these results and explore management options, if applicable. 08/15/2021 9:00 EST [facility] Final Diagnosis A. 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 08/15/2021 9:00 [facility] Diagnosis Comment Deeper sections have been examined. 08/15/2021 9:00 [facility] Attestation There was significant resident/fellow involvement in the diagnostic evaluation of this case. By the signature below, the attending physician certifies that they have personally conducted a gross and/or microscopic examination of the described specimens and rendered or confirmed the above diagnosis. 08/15/2021 9:00 [facility] at 0900 Clinical History Vulvar lesion 08/15/2021 9:00 [facility] Gross Description A. The specimen requisition slip is initially received with the patients' 1st name incorrectly spelled as Reenea. In accordance with the Laboratory Specimen Rejection Policy and Laboratory Accountability policy, YUNG Nelson spoke with Vanna Brower, lab supervisor refractory products, at [facility]. She has verified that the specimen was actually collected from [facility] [place], and has taken full responsibility for identifying and re-labelling the requisition slip with the correct spelling of the patients' 1st name. Received in formalin labelled with proper patient identification (initials S, R) and vulvar lesion 9 o'clock is a 0.6 x 0.4 x 0.3 cm pink-white focally ulcerated tissue. Submitted intact in A1. MORGAN KOO(ASCP) 08/10/2021 18:31 08/15/2021 9:00 [facility] Resident/[place] w: Lala Raman MD 08/15/2021 9:00 [facility] Performing Lab [facility] 9:00 [facility] Scanned Images 08/15/2021 9:00 [facility] Tissue ENTIRE VULVA / Unknown 08/09/2021 15:05 EST 08/10/2021 15:30 EST Sara Sherman PATHOLOGY ORDERABLES [facility] [address] [place] [address] documented in this encounter Visit Diagnoses Diagnosis Encounter for other general examination documented in this encounter Care Teams Clinical Resource Manager Relationship Specialty Start Date End Date Unknown, Provider, PCP - General 12/01/09 documented as of this encounter
--- OUTSIDE RECORDS SUMMARY | 2024-03-20 22:06 | XMS_ITS | Encounter Summary ---
Author Organization [facility] Address [address] [place] [address] Care Team Providers Care Engraver Hand Soft Metals Name Role Phone Unknown, Provider Primary Care Provider [phone] Yen Mccall MD Primary Care Provider [phone] Encounter Details Date Type Department Care Team (Late st Contact Info) Description 08/15/2000 Results Only [facility] - Maple conversion [address] [place] [address] Avinash Davis MD Social History Tobacco Use [...] Priority Date/Time Associated Diagnosis Comments CYTOPATHOLOGY Routine 08/15/2000 0:00 EST documented in this encounter Results * CYTOPATHOLOGY (08/15/2000 0:00 EST) Pathology Report: CYTOPATHOLOGY REPORT Reports generated via electronic interface contain original data; however they are lacking the format of the original report. Caution should be taken when reading/interpreti ng unformatted reports. Name: ? AFTAB DE LEON ? Accession #: ? [id number] : ? 1970 (Age: 30) ??F ?Collect Date: ? 08/15/2000 Location: ? [facility] ? Receive Date: ? 08/17/2000 Provider: ?AVINASH DAVIS MD Copy to: ? Specimen/Source: ?Conventional Pap Test, Cervix/Endocervix Last Menstrual Period: ? 08/09/00 Menstrual/Pregnanc y Status: ? Post ? SPECIMEN ADEQUACY ? Satisfactory for evaluation. GENERAL CATEGORIZATION ? Within Normal Limits ? Document reviewed and electronically signed by: ? JOSE JUAN Bai(ASCP) ? Report Date: ??08/17/2000 10:30 End of Report [facility] 08/15/2000 08/17/2000 Avinash Davis MD PATHOLOGY ORDERABLES Performing Organization Address City/State/[facility] Co de Phone Number [facility] [address] [place] [address] documented in this encounter Visit Diagnoses Not on filedocumented in this encounter Care Teams Engraver Hand Soft Metals Relationship Specialty Start Date End Date Unknown, Provider, PCP - General 12/01/09 Yen Mccall MD [address] [place] [address] PCP - General 02/24/09 11/30/09 documented as of this encounter
--- OUTSIDE RECORDS SUMMARY | 2024-03-20 22:06 | XMS_ITS | Clinical Summary ---
Author Organization [facility] Address [address] [place] [address] Care Team Providers Care Director Of Analytics Name Role Phone Unknown, Provider Primary Care Provider [phone] Social History Tobacco Use Types Packs/Day Years Used Date Smoking Tobacco: Never Assessed Sex and Gender Information Value Date Recorded Sex Assigned at Not on file Gender Identity Not on file Sexual Orientation Not on file Plan of Treatment Health Maintenance Due Date Last Done Comments Hepatitis C Screen 1970 Hepatitis B Vaccine (1 of 3 - 19+ 3-dose series) 01/18 COVID-19 Vaccine (2022-24 season) 2023 Care Teams Director Of Analytics Relationship Specialty Start Date End Date Unknown, Provider, PCP - General 12/01/09
--- OUTSIDE RECORDS SUMMARY | 2024-03-20 22:06 | XMS_ITS | Encounter Summary ---
Author Organization [facility] Address [address] [place] [address] Care Team Providers Care Well Blower Name Role Phone Unknown, Provider Primary Care Provider [phone] Yen Mccall MD Primary Care Provider [phone] Encounter Details Date Type Department Care Team (Late st Contact Info) Description 05/18/2006 Results Only [facility] - Maple conversion [address] [place] [address] Avinash Davis MD Social History Tobacco Use Types Packs/Day Years Used Date Smoking Tobacco: Never Assessed Sex and Gender Information Value Date Recorded Sex Assigned at Not on file Gender Identity Not on file Sexual Orientation Not on file documented as of this encounter Plan of Treatment Not on file documented as of this encounter Procedures Procedure Name Priority Date/Time Associated Diagnosis Comments HPV DETECTION, HIGH RISK TYPES Routine 05/18/2006 9:30 EDT CYTOPATHOLOGY Routine 05/18/2006 0:00 EDT documented in this encounter Results * HUMAN PAPILLOMA VIRUS DNA TEST (05/18/2006 9:30 EDT) Specimen Description Cervix, ThinPrep vial [facility] Result Positive for one or more of HPV types 16,18,31,33,35 ,39,45,51,52,5 6,58,59, or 68. These high/intermedi ate risk HPV types are associated with dysplasia and some cervical cancers. [facility] Report Status Final [id number] [facility] 05/18/2006 9:30 EDT 05/25/2006 9:30 EDT Avinash Davis MD MICROBIOLOGY - GENER AL ORDERABLES [facility] [address] [place] [address] * CYTOPATHOLOGY (05/18/2006 0:00 EDT) Pathology Report: CYTOPATHOLOGY REPORT Reports generated via electronic interface contain original data; however they are lacking the format of the original report. Caution should be taken when reading/interpreti ng unformatted reports. Name: ? AFTAB DE LEON ? Accession #: ? [id number] : ? 1970 (Age: 36) ??F ?Collect Date: ? 05/18/2006 Location: ? [facility] ? Receive Date: ? 05/21/2006 Provider: ?AVINASH DAVIS MD Copy to: ? Specimen/Source: ?ThinPrep Pap Test, Cervix/Endocervix, processed on [employer] ThinPrep Imaging System, with manual evaluation Last Menstrual Period: ? 04/30/06 Previous Gynecologic Pathology: ? ASC-US: R/O HSIL 12/16 Other: ? HPVDX - HPV testing requested regardless of diagnosis on current ThinPrep Pap test. ? SPECIMEN ADEQUACY ? Satisfactory for Evaluation - transformation zone component present GENERAL CATEGORIZATION ? Epithelial Cell Abnormality INTERPRETATION ? Squamous Cell Abnormality - High grade squamous intraepithelial lesion (HSIL). Shift in jitendra present suggestive of bacterial vaginosis. EDUCATIONAL NOTES/RECOMMENDATI ONS ? [facility] recommends following the 2001 Consensus Guidelines for the Management of Women with Cervical Cytological Abnormalities (JOCELYN,2002;287:212 0-9). Management algorithms have been distributed by [facility] and are available online at www.ASCCP.org. ? Document reviewed and electronically signed by: ? SRAVANI PENA MD ? Report Date: ??05/24/2006 12:42 End of Report [facility] 05/18/2006 05/21/2006 Avinash Davis MD PATHOLOGY ORDERABLES Performing Organization Address City/State/[facility] Co de Phone Number [facility] [address] [place] [address] documented in this encounter Visit Diagnoses Not on filedocumented in this encounter Care Teams Well Blower Relationship Specialty Start Date End Date Unknown, Provider, PCP - General 12/01/09 Yen Mccall MD [address] [place] [phone] PCP - General 02/24/09 11/30/09 documented as of this encounter
--- OUTSIDE RECORDS SUMMARY | 2024-03-20 22:06 | XMS_ITS | Encounter Summary ---
Author Organization [facility] Address [address] [place] [address] Care Team Providers Care Steam And Gas Turbines Assembler Name Role Phone Unknown, Provider Primary Care Provider [phone] Yen Mccall MD Primary Care Provider [phone] Encounter Details Date Type Department Care Team (Late st Contact Info) Description 12/25/2005 Results Only [facility] - Maple conversion [address] [place] [address] Avinash Davis MD Social History Tobacco Use [...] Priority Date/Time Associated Diagnosis Comments CYTOPATHOLOGY Routine 12/25/2005 0:00 EDT documented in this encounter Results * CYTOPATHOLOGY (12/25/2005 0:00 EDT) Pathology Report: CYTOPATHOLOGY REPORT Reports generated via electronic interface contain original data; however they are lacking the format of the original report. Caution should be taken when reading/interpreti ng unformatted reports. Name: ? AFTAB DE LEON ? Accession #: ? [id number] : ? 1970 (Age: 35) ??F ?Collect Date: ? 12/25/2005 Location: ? [facility] ? Receive Date: ? 12/28/2005 Provider: ?AVINASH DAVIS MD Copy to: ? Specimen/Source: ?ThinPrep Pap Test, Cervix/Endocervix, processed on scrible ThinPrep Imaging System, with manual evaluation Last Menstrual Period: ? Previous Gynecologic Pathology: ? LSIL: 1994, paps wnl since Other: ? HPVA - HPV testing requested if ASC-US on the current ThinPrep Pap test. ? SPECIMEN ADEQUACY ? Satisfactory for Evaluation - transformation zone component present GENERAL CATEGORIZATION ? Epithelial Cell Abnormality INTERPRETATION ? Squamous Cell Abnormality - Atypical squamous cells, cannot exclude ? high grade squamous intraepithelial lesion (HSIL). Shift in jitendra present suggestive of bacterial vaginosis. EDUCATIONAL NOTES/RECOMMENDATI ONS ? [facility] recommends following the 2001 Consensus Guidelines for the Management of Women with Cervical Cytological Abnormalities (JOCELYN,2002;287:212 0-9). Management algorithms have been distributed by [facility] and are available online at www.ASCCP.org. ? Document reviewed and electronically signed by: ? GERMAN MCGHEE MD ? Report Date: ??01/05/2006 11:38 End of Report TIKA ANNE 12/25/2005 12/28/2005 Avinash Davis MD PATHOLOGY ORDERABLES Performing Organization Address City/State/[facility] Co de Phone Number TIKA ANNE [address] [place] [address] documented in this encounter Visit Diagnoses Not on filedocumented in this encounter Care Teams Steam And Gas Turbines Assembler Relationship Specialty Start Date End Date Unknown, Provider, PCP - General 12/01/09 Yen Mccall MD [address] [place] [address] PCP - General 02/24/09 11/30/09 documented as of this encounter
--- OUTSIDE RECORDS SUMMARY | 2024-03-20 22:06 | XMS_ITS | Encounter Summary ---
Author Organization [facility] Address [address] [place] [address] Care Team Providers Care Supervisor Cereal Name Role Phone Unknown, Provider Primary Care Provider Encounter Details Date Type Department Care Team (Late st Contact Info) Description 07/15/2021 Lab Requisition [facility] Pathology & Laboratory Medicine - [address] [address] Sara Sherman [address] [place] [address] [place] [address] Encounter for other general examination [...] Procedure Name Priority Date/Time Associated Diagnosis Comments PAP TEST Today 07/14/2021 10:40 EST Encounter for other general examination HPV DNA DETECTION WITH GENOTYPING, PCR Today 07/14/2021 10:40 EST Encounter for other general examination documented in this encounter Results * HUMAN PAPILLOMAVIRUS (HPV) DETECTION-HIGH RISK TYPES (07/14/2021 10:40 EST) HPV other High Risk types, PCR Negative Negative 07/26/2021 11:03 EST [facility] Comment:No E6 or E7 mRNA is detected from HPV types 16,18,31,33,35,39,45,51,52,56,58,59,66, and 68 by dinkey mechanic mediated amplification. Papanicolaou smear specimen (specimen) CERVIX UTERI STRUCTURE / Unknown 07/14/2021 10:40 EST 07/21/2021 11:06 EST Sara Sherman MICROBIOLOGY - GENER AL ORDERABLES [facility] [address] [place] [address] * PAP TEST (07/14/2021 10:40 EST) Specimens A. Cervix and/or Endocervix , ThinPrep Imaging System with Manual Evaluation 07/26/2021 11:03 [facility] Specimen Adequacy Satisfactory for Evaluation - assessment of transformation zone component not applicable ( e.g. atrophy, vaginal sample, hysterectomy) 07/26/2021 11:03 [facility] General Categorization Negative for intraepithelial lesion or malignancy 07/26/2021 11:03 [facility] Attestation . 07/26/2021 11:03 [facility] at 1103 Clinical History See below 07/26/20 11:03 [facility] HPV The result for the Human Papillomavirus (HPV) Detection-High Risk Types is Negative. No E6 or E7 mRNA is detected from HPV types 16,18,31,33,35,39 ,45,51,52,56,58,5 9,66, and 68 by dinkey mechanic mediated amplification.Cecille ting was performed on specimen [id number] and was resulted on 07/26/2021 0921 EST by CHERIE, LAB INSTRUMENT RESULTS IN 07/26/2021 11:03 [facility] Performing Lab [facility] 07/26/2021 11:03 [facility] Scanned Images 07/26/2021 11:03 [facility] Papanicolaou smear specimen (specimen) CERVIX UTERI STRUCTURE / Unknown 07/14/2021 10:40 EST 07/15/2021 15:33 EST Sara Sherman PATHOLOGY ORDERABLES [facility] [address] [place] [address] documented in this encounter Visit Diagnoses Diagnosis Encounter for other general examination documented in this encounter Care Teams Supervisor Cereal Relationship Specialty Start Date End Date Unknown, Provider, PCP - General 12/01/09 documented as of this encounter
--- OUTSIDE RECORDS SUMMARY | 2024-03-20 22:06 | XMS_ITS | Encounter Summary ---
Author Organization [facility] Address [address] [place] [address] Care Team Providers Care Pattern Layout Worker Name Role Phone Unknown, Provider Primary Care Provider [phone] Yen Mccall MD Primary Care Provider [phone] Encounter Details Date Type Department Care Team (Late st Contact Info) Description 11/19/2002 Results Only [facility] - Maple conversion [address] [place] [address] Tessa Friedman, CIRCUS PERFORMER Social History Tobacco Use Types Packs/Day Years Used Date Smoking Tobacco: Never Assessed Sex and Gender Information Value Date Recorded Sex Assigned at Not on file Gender Identity Not on file Sexual Orientation Not on file documented as of this encounter Plan of Treatment Not on file documented as of this encounter Procedures Procedure Name Priority Date/Time Associated Diagnosis Comments CYTOPATHOLOGY Routine 11/19/2002 0:00 EDT documented in this encounter Results * CYTOPATHOLOGY (11/19/2002 0:00 EDT) Pathology Report: CYTOPATHOLOGY REPORT Reports generated via electronic interface contain original data; however they are lacking the format of the original report. Caution should be taken when reading/interpreti ng unformatted reports. Name: ? AFTAB DE LEON ? Accession #: ? [id number] : ? 1970 (Age: 32) ??F ?Collect Date: ? 11/19/2002 Location: ? [facility] ? Receive Date: ? 11/21/2002 Provider: ?TESSA FRIEDMAN CIRCUS PERFORMER Copy to: ? Specimen/Source: ?ThinPrep Pap Test, Cervix/Endocervix Last Menstrual Period: ? 11/13/02 Previous Gynecologic Pathology: ? LSIL: 1994 (info per pt.) Other: ? HPVA - HPV testing requested if ASC-US on the current ThinPrep Pap test. ? SPECIMEN ADEQUACY ? Satisfactory for Evaluation - transformation zone component present GENERAL CATEGORIZATION ? Negative for Intraepithelial Lesion or Malignancy ? Document reviewed and electronically signed by: ? Linda Ny, [facility](ASCP) ? Report Date: ??11/26/2002 15:19 End of Report TIKA ANNE 11/19/2002 11/21/2002 Tessa Friedman CIRCUS PERFORMER PATHOLOGY ORDER CEZAR Performing Organization Address City/State/[facility] Co de Phone Number TIKA ANNE [address] [place] [address] documented in this encounter Visit Diagnoses Not on filedocumented in this encounter Care Teams Pattern Layout Worker Relationship Specialty Start Date End Date Unknown, Provider, PCP - General 12/01/09 [place] [address] [place] [phone] PCP - General 02/24/09 11/30/09 documented as of this encounter
--- OUTSIDE RECORDS SUMMARY | 2024-03-20 22:06 | XMS_ITS | Encounter Summary ---
Author Organization [facility] Address [address] [place] [address] Care Team Providers Care Visitor Services Assistant Name Role Phone Unknown, Provider Primary Care Provider Reason for Visit * Reason Onset Date Comments Appointment Related 10/18/2021 Encounter Details Date Type Department Care Team (Late st Contact Info) Description 10/18/2021 Telephone [facility] Rheumatology & Immunology - [address] [address] Rachel Donald MD [address] [place] [address], [address] [place] [phone] Appointment Related Social History Tobacco Use Types Packs/Day Years Used Date Smoking Tobacco: Never Assessed Sex and Gender Information Value Date Recorded Sex Assigned at Not on file Gender Identity Not on file Sexual Orientation Not on file documented as of this encounter Miscellaneous Notes * Telephone Encounter - Chari Polanco - 10/18/2021 1124 EST 10/25/[address] Donald has been canceled due to a provider schedule conflict. Unableto reach patient via phone, voicemail left in addition to sending an e-mail to patient. Patient wasmade aware that 10/25/21 appointment was canceled and to call back to reschedule. documented in this encounter Plan of Treatment Not on file documented as of this encounter Visit Diagnoses Not on filedocumented in this encounter Care Teams Visitor Services Assistant Relationship Specialty Start Date End Date Unknown, Provider, PCP - General 12/01/09 documented as of this encounter
--- OUTSIDE RECORDS SUMMARY | 2024-03-20 22:07 | XMS_ITS | Encounter Summary ---
Author Organization [facility] Address [facility] [place] [address] Care Team Providers Care Bank Vault Clerk Name Role Phone Yvette Reyes APRN Primary Care Provider [phone] Encounter Details Date Type Department Care Team (Late st Contact Info) Description 04/18/2023 10:10 AM EDT Laboratory Appointment Lab [address] [place] [id number] Social History Tobacco Use Types Packs/Day Years Used Date Smoking Tobacco: Never Smokeless Tobacco: Never Alcohol Use Standard Drinks/Week Comments Not Currently 0 (1 standard drink = 0.6 oz pur e alcohol) rare Sex and Gender Information Value Date Recorded Sex Assigned at Not on file Gender Identity Not on file Sexual Orientation Not on file documented as of this encounter Plan of Treatment Upcoming Encounters Date Type Department Care Team (Late st Contact Info) Description 04/07/2024 3:20 PM EDT Office Visit Dermatology at [facility] [address] [place] [address] Dayanna Ramírez MD [facility] [address] [place] [address] documented as of this encounter Visit Diagnoses Not on filedocumented in this encounter Care Teams Bank Vault Clerk Relationship Specialty Start Date End Date Yvette Reyes APRN [address] [place] [address] PCP - General Family Medicine 03/21/21 09/23/23 documented as of this encounter
--- OUTSIDE RECORDS SUMMARY | 2024-03-20 22:07 | XMS_ITS | Encounter Summary ---
Author Organization [facility] Address [facility] [place] [address] Care Team Providers Care Service Desk Technician Name Role Phone Abby Guaman APRN Primary Care Provider [phone] Encounter Details Date Type Department Care Team (Latest Contact Info) Description 09/24/2023 Travel Social History Tobacco Use Types Packs/Day Years [...] 3:20 PM EDT Office Visit Dermatology at [facility] [address] [place] [address] Dayanna Ramírez MD [facility] [place] [address] documented as of this encounter Visit Diagnoses Not on filedocumented in this encounter Care Teams Service Desk Technician Relationship Specialty Start Date End Date Abby Guaman APRN [facility] [place] [address] PCP - General Family Medicine 09/24/23 documented as of this encounter
--- OUTSIDE RECORDS SUMMARY | 2024-03-20 22:07 | XMS_ITS | Encounter Summary ---
[place] [address] Care Team Providers Care Insole Beveler Name Role Phone Yvette Reyes APRN Primary Care Provider [phone] Reason for Referral * Consultation (Routine) - Closed Specialty Diagnoses / Procedures Referred By Contac t Referred To Contact Neurology Diagnoses Cerebrovascular accident (CVA), unspecified mechanism History of traumatic brain injury Mart Cordoba DNP [address] [place] [address] [facility] [address] [place] [phone] Referral ID Status Reason Start Date Expiration Date V isits Requested Visits Authorized [id number] Closed Consult, Test & Treat PCP Updated and/or Approved 02/22/2023 02/22/2024 6 6 Encounter Details Date Type Department Care Team (Late st Contact Info) Description 02/22/2023 Transcribe Orders eDH Incoming Referrals [phone] Mart Cordoba DNP [facility] [address] [place], [place] [id number] Cerebrovascular accident (CVA), unspecified mechanism; History of traumatic brain injury Social History Tobacco Use Types Packs/Day Years [...] 3:20 PM EDT Office Visit Dermatology at [facility] [address] [place] [address] Dayanna Ramírez MD [facility] [place] [address] Scheduled Referrals Name Type Priority Associated Diagnoses Orde r Schedule Referral to Neurology Outpatient Referral Routine Cerebrovascular accident (CVA), unspecified mechanism History of traumatic brain injury Ordered: 02/22/2023 documented as of this encounter Visit Diagnoses Diagnosis Cerebrovascular accident (CVA), unspecified mechanism History of traumatic brain injury Personal history of traumatic brain injury documented in this encounter Care Teams Insole Beveler Relationship Specialty Start Date End Date Yvette Reyes, JOAN [address] [place] [address] PCP - General Family Medicine 03/21/21 09/23/23 documented as of this encounter
--- OUTSIDE RECORDS SUMMARY | 2024-03-20 22:07 | XMS_ITS | Encounter Summary ---
Author Organization [facility] Address [facility] [place] [address] Care Team Providers Care Ct Technologist Name Role Phone Abby Guaman APRN Primary Care Provider [phone] Encounter Details Date Type Department Care Team (Late st Contact Info) Description 09/24/2023 11:20 AM EST Office Visit Dermatology at [facility] [address] [place] [address] Dayanna Ramírez MD [facility] [address] [place] [address] Encounter for cosmetic laser procedure; Acne mechanica Social History Tobacco Use Types Packs/Day Years Used Date Smoking Tobacco: Never Smokeless Tobacco: Never Alcohol Use Standard Drinks/Week Comments Not Currently 0 (1 standard drink = 0.6 oz pur e alcohol) rare Sex and Gender Information Value Date Recorded Sex Assigned at Not on file Gender Identity Not on file Sexual Orientation Not on file documented as of this encounter Progress Notes * Dayanna Ramírez MD - 09/24/2023 11:20 AM EST COSMETIC DERMATOLOGY CLINIC NOTE Date of service: 09/24/2023 Yumiko Chang : 1970 Provider: Dayanna Ramírez MD. HPI Yumiko Chang is a 53 y.o. year old female. She is here today for cosmetic treatment of acne mechanica. Allergies Allergen Reactions Latex Rash BURNING/ THROAT CLOSES Azithromycin Anaphylaxis Penicillins Anaphylaxis Epinephrine Other (See Comments) fast heart rate Influenza Virus Vaccines Declines based on prior fevers, fatigue. EXAM General: NAD, pleasant, cooperative. Skin: A focused skin examination of the perioral area was performed. Diagnosis/Skin findings/Assessment/Plan: #. 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 Patient quoted $150 for procedure today. - Lesions treated with gentlelase pro today. - suggested 5-10 treatments and subsequent re-evaluation for frequency of inflammatory papules - resident only patient LASER TREATMENT LOG Date: 09/24/2023 Laser: Gentlelase pro Area: Perioral region Spot: 18 Fluence (J/cm^2): 16 Pulse Duration (ms): 3ms Pulse #: 32 Paid: $150 Tx By: PS Notes: Consent form signed during today's visit Patient paid $150 upon leaving the clinic today for the above procedure(s). Scribe attestation: Ori Reyna who has performed the documentation for this encounter in the presence of and acting as a scribe for Dayanna Ramírez MD. I performed the above scribed service and agree with the accuracy of the documentation in this encounter. Reviewed and signed by: Dayanna Ramírez MD Dermatology [facility] Patient seen and evaluated with staff gear cutter: Carole Cardenas MD Dermatology [facility] * Carole Cardenas MD - 09/24/2023 11:20 AM EST I directly supervised Dayanna Ramírez MD in the care of this Dermatology patient in person. I saw and evaluated this patient with Dayanna Ramírez MD. Dayanna Ramírez MD presented the history and physical exam details to me, then we saw the patient together, and I confirmed these findings. I agree with details as written. My physical examination confirms Dayanna Ramírez MD's findings. The assessment and plan were formulated in discussion with me at the time of visit, and I agree with them as documented. Carole Cardenas MD Staff Kiln Operator Department of Dermatology [facility] documented in this encounter Plan of Treatment Upcoming Encounters Date Type Department Care Team (Late st Contact Info) Description 04/07/2024 3:20 PM EDT Office Visit Dermatology at [facility] [address] [place] [address] Dayanna Ramírez MD [facility] [place] [address] documented as of this encounter Visit Diagnoses Diagnosis Encounter for cosmetic laser procedure Acne mechanica Other acne documented in this encounter Care Teams Ct Technologist Relationship Specialty Start Date End Date Abby Guaman APRN [address] [place] [address] PCP - General Family Medicine 09/24/23 documented as of this encounter
--- OUTSIDE RECORDS SUMMARY | 2024-03-20 22:07 | XMS_ITS | Encounter Summary ---
Author Organization [facility] Address [facility] [place] [address] Care Team Providers Care Hand Trucker Name Role Phone ShelilYvette sabillon JOAN Primary Care Provider [phone] Encounter Details Date Type Department Care Team (Late st Contact Info) Description 07/17/2023 6:00 PM EST Ext Surgery or Single Event Cardiology at [address] [place] [address] Eric Mendoza MD [facility] [address] Palpitations Social History Tobacco Use Types Packs/Day Years [...] as of this encounter Progress Notes * Eric Mendoza MD - 07/17/2023 6:00 PM EST Event Monitor Summary Start Date: 06/14/2023 Indication: Palpitations Referring Provider: Beryl Baseline: NSR, nl ekg Events: - Auto-Triggered events: none significant. There was an episode described as Wenckebach; however, this appears to be conducted/nonconducted PACs - Symptom-Triggered events: 186 - 3 of these episodes were during sinus rhythm + ambient ectopy - The remaining 98% of events were during sinus rhythm, without nearby ectopy/arrhythmia Conclusion: No correlation of symptoms to ectopy/arrhythmia. Electronically Signed: Eric Mendoza MD, 07/17/2023 1:25 PM documented in this encounter Plan of Treatment Upcoming Encounters Date Type Department Care Team (Late st Contact Info) Description 04/07/2024 3:20 PM EDT Office Visit Dermatology at [facility] [address] [place] [address] Dayanna Ramírez MD [facility] [place] [address] documented as of this encounter Procedures Procedure Name Priority Date/Time Associated Diagnosis Comments OBIEE REPORT DEVELOPER SCAN 07/17/2023 12:00 AM EST documented in this encounter Results * SCAN DOC: OBIEE REPORT DEVELOPER (07/17/2023 12:00 AM EST) Anatomical Region Laterality Modality Other Narrative 07/17/2023 12:00 AM EST Ordered by an unspecified provider. Scanning Provider MEDIA MGR SCAN EXT O RDR/RSLT documented in this encounter Visit Diagnoses Diagnosis Palpitations documented in this encounter Care Teams Hand Trucker Relationship Specialty Start Date End Date Yvette Reyes, JOAN [address] [place] [address] PCP - General Family Medicine 03/21/21 09/23/23 documented as of this encounter
--- OUTSIDE RECORDS SUMMARY | 2024-03-20 22:07 | XMS_ITS | Encounter Summary ---
Author Organization [facility] Address [facility] [place] [address] Care Team Providers Care O And M Supervisor Name Role Phone Billie Ly MD Primary Care Provider [phone] Encounter Details Date Type Department Care Team (Late st Contact Info) Description 11/16/2020 Abstract Family Medicine at [facility] [address] [place] [address] Tram Garcia TOY DESIGNER Social History Tobacco Use Types Packs/Day Years [...] 3:20 PM EDT Office Visit Dermatology at [facility] [address] [place] [address] Dayanna Ramírez MD [facility] [address] [place] [address] documented as of this encounter Visit Diagnoses Not on filedocumented in this encounter Care Teams O And M Supervisor Relationship Specialty Start Date End Date Billie Ly MD [facility] [address] [place] [address] PCP - General Family Medicine 02/20/19 03/20/21 documented as of this encounter
--- OUTSIDE RECORDS SUMMARY | 2024-03-20 22:07 | XMS_ITS | Encounter Summary ---
Author Organization [facility] Address [facility] [place] [address] Care Team Providers Care Toll Bridge Attendant Name Role Phone Billie Ly MD Primary Care Provider [phone] Encounter Details Date Type Department Care Team (Late st Contact Info) Description 04/07/2020 E-Consult Obstetrics [place] [address] Abby Arevalo MD [facility] [address] OB[place] [address] Abnormal cervical Papanicolaou smear, unspecified abnormal pap finding Social History Tobacco Use Types Packs/Day Years Used Date Smoking Tobacco: Never Smokeless Tobacco: Never Alcohol Use Standard Drinks/Week Comments No 0 (1 standard drink = 0.6 oz pur e alcohol) rare Sex and Gender Information Value Date Recorded Sex Assigned at Not on file Gender Identity Not on file Sexual Orientation Not on file documented as of this encounter Miscellaneous Notes * E-Consult - Abby Arevalo MD - 04/07/2020 12:02 PM EDT Images from the original note were not included. Select F2 to choose the appropriate response: Proceed with eConsult 1. Restatement of the question: 50 y.o. 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 2013, 2011, 2009, 2008, 2008, 2007 NILM Hx of LEEP in 2006 ?? Her provider in the department recently retired and she was lost to follow-up. ??Given the vaginal lesion I encouraged her to re-establish care with OBGYN, but based on COVID and the recent normal exam and normal pap/HPV, what would be the ideal timing for this visit. ??When do you recommend next pap. 2. Recommendation(s): Repeat pap+HPV cotest in 1 year. 3. Rationale and/or evidence for recommendation: Recommendation is based on the recommended follow-up for VAIN1 which is slightly more conservative than follow up for her ASCUS/HPV(otherHR)+ pap with no WINIFRED on biopsy. Recommendation is based on thealgorithm below, from UpToDate. VAIN1: UTD 4. Contingency plan: Electroencephalogram Technologist consult. Abby Arevalo MD This eConsult is focused on the specific clinical question(s) asked by the referring clinician, is based on the clinical data available to me, the consulting physician, at the time of the request, and is furnished without benefit of a comprehensive evaluation or physical examination of the patient by me. The guidance set forth in the eConsult note will need to be interpreted in light of any clinical issues not known to me or any changes in patient status that I may not be aware of at the time of filing this eConsult. If further consultation is necessary, an in-person visit with me or another member of our group is an option. documented in this encounter Plan of Treatment Upcoming Encounters Date Type Department Care Team (Late st Contact Info) Description 04/07/2024 3:20 PM EDT Office Visit Dermatology at [facility] [address] [place] [id number] Dayanna Ramírez MD [facility] [place] [address] documented as of this encounter Visit Diagnoses Diagnosis Abnormal cervical Papanicolaou smear, unspecified abnormal pap finding documented in this encounter Care Teams Toll Bridge Attendant Relationship Specialty Start Date End Date Billie Ly MD [facility] [address] [place] [address] PCP - General Family Medicine 02/20/19 03/20/21 documented as of this encounter
--- OUTSIDE RECORDS SUMMARY | 2024-03-20 22:07 | XMS_ITS | Encounter Summary ---
Author Organization [facility] Address [facility] [place] [address] Care Team Providers Care Pivot End Polisher Name Role Phone Yvette Reyes APRN Primary Care Provider [phone] Encounter Details Date Type Department Care Team (Latest Contact Info) Description 06/04/2023 Travel Social History Tobacco Use Types Packs/Day [...] 3:20 PM EDT Office Visit Dermatology at [facility] [address] [place] [address] Dayanna Ramírez MD [facility] [place] [address] documented as of this encounter Visit Diagnoses Not on filedocumented in this encounter Care Teams Pivot End Polisher Relationship Specialty Start Date End Date Yvette Reyes APRN [address] [place] [address] PCP - General Family Medicine 03/21/21 09/23/23 documented as of this encounter
--- OUTSIDE RECORDS SUMMARY | 2024-03-20 22:07 | XMS_ITS | Encounter Summary ---
Author Organization [facility] Address [facility] [place] [address] Care Team Providers Care Railcar Foreman Name Role Phone Billie Ly MD Primary Care Provider [phone] Encounter Details Date Type Department Care Team (Late st Contact Info) Description 05/19/2020 Telephone Family Medicine at [address] [place] [address] Nakita Wells RN Social History Tobacco Use Types Packs/Day Years [...] encounter Miscellaneous Notes * Telephone Encounter - Nakita Wells RN - 05/19/2020 9:14 AM EDT Caller: Yumikoaki De Leon Patient identified by name and Chief complaint: Concussion, CP Description of symptoms: Pt states she donated blood on 05/12. Instead of going straight home she went to grocery store. As she bent down to put basket on floor,she passed out. Witnesses state she hithead. Pt woke to EMT's who stated she probably has a concussion. Pt did not feel bump on head until2 days later. Pt declined going to ED. She did not f/u with PCP. States she feels dizzy and lightheaded since but improving each day. For the last ~ 3 days pt has experienced intermittent sudden 'sharp, tight squeeze in chest'. pt would hold breath. Lasted~ 5 seconds and resolve. 2 days ago L shoulder went numb with CP. Yesterday she felt numbness in middle knuckles of L hand. Denies any current symptoms. Alleviating factors: none Pertinent hx: states hx AR in past related to medication. EDS, Fibromyalgia,GERD, hypothyroid Telehealth screen: [x] Established patient [] Has access to Internet smart phone or computer with camera [] Would need phone visit Plan: [] Will review with PCP/COS and call patient back [x] Appointment scheduled date:05/19 With: jose manuel Patient reports any of the following NEW symptoms and is in need of urgent eval instruct to wear a mask COVID NEG [] Advised to seek urgent care [x] Advised to seek emergent care [] Call 911. Home quarantine: Not indicated Home Care Instructions provided per: Strongly encouraged evaluation. Pt states she has 2 appts thisam at . Instructed to present to ED if any return of symptoms. [x] Magno Telephone Triage Protocols for Nurses 4th/5th edition. [] Hoffman: Pediatric Telephone protocols 15/16th edition Recommendations for worsening condition: ED Does the Patient agree and understand the instructions provided: yes Note routed to: jose manuel For review. documented in this encounter Plan of Treatment Upcoming Encounters Date Type Department Care Team (Late st Contact Info) Description 04/07/2024 3:20 PM EDT Office Visit Dermatology at [facility] [address] [place] [address] Dayanna Ramírez MD [facility] [address] [place] [address] documented as of this encounter Visit Diagnoses Not on filedocumented in this encounter Care Teams Railcar Foreman Relationship Specialty Start Date End Date Billie Ly MD [facility] [address] [facility] [place] [address] PCP - General Family Medicine 02/20/19 03/20/21 documented as of this encounter
--- OUTSIDE RECORDS SUMMARY | 2024-03-20 22:07 | XMS_ITS | Encounter Summary ---
Author Organization [facility] Address [facility] [place] [address] Care Team Providers Care Senior Loss Control Specialist Name Role Phone Abby Guaman APRN Primary Care Provider Encounter Details Date Type Department Care Team (Late st Contact Info) Description 11/13/2023 10:40 AM EDT Office Visit Dermatology at [facility] [address] [place] [address] Dayanna Ramírez MD [facility] [place] [address] Pseudofolliculitis; Encounter for cosmetic laser procedure Social History Tobacco Use Types Packs/Day Years [...] Progress Notes * Dayanna Ramírez MD - 11/13/2023 10:40 AM EDT COSMETIC DERMATOLOGY CLINIC NOTE Date of service: 11/13/2023 Yumiko Chang : 1970 Provider: Dayanna Ramírez MD. HPI Yumiko Chang is a 53 y.o. year old female. She is here today for cosmetic treatment of Pseudofolliculitis. Allergies Allergen Reactions Latex Rash BURNING/ THROAT [...] - Lesions treated with gentlelase pro today. LASER TREATMENT LOG Date: 09/24/2023 Laser: Gentlelase pro Area: Perioral region Spot: 18 Fluence (J/cm^2): 16 Pulse Duration (ms): 3ms Pulse #: 32 Paid: $150 Tx By: PS Notes: Consent form signed during today's visit Date: 11/13/2023 Laser: Gentlelase Pro Area: Perioral region Spot: 18 Energy(J): 16 Pulse Duration: 3 ms Pulse #: 40 Paid: $150 Tx By: PS Notes: Tolerated well Patient paid $150 upon leaving the clinic today for the above procedure(s). Scribe attestation: GEORGE Estrada who has performed the documentation for this encounter in the presence of and acting as a scribe for Dayanna Ramírez MD. I performed the above scribed service and agree with the accuracy of the documentation in this encounter. Reviewed and signed by: Dayanna Ramírez MD Dermatology [facility] Patient seen and evaluated with staff beer still runner compounder: Pacheco Smiley MD Department of Dermatology [facility] * Pacheco Smiley MD - 11/13/2023 10:40 AM EDT I directly supervised Dayanna Ramírez MD in [...] and I agree with them as documented. Pacheco Smiley MD Staff Paper Mill Supervisor Department of Dermatology [facility] documented in this encounter Plan of Treatment Upcoming Encounters Date Type Department Care Team (Late st Contact Info) Description 04/07/2024 3:20 PM EDT Office Visit Dermatology at [facility] [address] [place] [address] Dayanna Ramírez MD [facility] [place] [address] documented as of this encounter Visit Diagnoses Diagnosis Pseudofolliculitis Other specified disease of hair and hair follicles Encounter for cosmetic laser procedure documented in this encounter Care Teams Senior Loss Control Specialist Relationship Specialty Start Date End Date Abby Guaman APRN [address] [place] [address] PCP - General Family Medicine 09/24/23 documented as of this encounter
--- OUTSIDE RECORDS SUMMARY | 2024-03-20 22:07 | XMS_ITS | Encounter Summary ---
[place] [address] Care Team Providers Care Accuracy Expert Name Role Phone Billie Ly MD Primary Care Provider Reason for Visit * Reason Comments Blurred Vision * Consultation (Urgent) - Closed Specialty Diagnoses / Procedures Referred By Contac t Referred To Contact Ophthalmology Diagnoses Vision changes Billie Ly MD [facility] [place] [address] [facility] [address] [place] [id number] Referral ID Status Reason Start Date Expiration Date V isits Requested Visits Authorized [id number] Closed Consult, Test & Treat 03/24/2020 03/24/2021 1 1 Encounter Details Date Type Department Care Team (Late st Contact Info) Description 04/16/2020 2:45 PM EDT [place] [address] Maite Fry MD [facility] [place] [address] Unspecified visual disturbance; Visual field defects Social History Tobacco Use Types Packs/Day Years [...] as of this encounter Progress Notes * Maite Russo MD - 04/16/2020 2:45 PM EDT Yumiko Chang is a 50 y.o. female referred by Dr. Billie Ly for central right vision defect.Yumiko Chang says that she sees an intermittent black spot that blocks her vision OD and it some times looks like something black is right in front of her, which causes her to run into things. She is a contact wearer OD. 1) Visual disturbance, right eye - Patient reports the black spot in her vision began gradually appearing around Fall 2018. Notices the black spot most when she shifts from rooms with bright light into rooms with normal lighting. - Patient arrived late, unable to do static visual field. However visual field by confrontation wasfull. Will schedule for standalone HVF. - Visual acuity 20/20 OD and 20/70 with pinhole correction OS (amblyopic eye). - OCT average RNFL within normal limits OU and OCT retina normal. No evidence of retinal emboli noted on eye exam 2) Amblyopia, left eye - Longstanding history. Vision at baseline. 3) Nuclear sclerotic cataracts, bilaterally - Not visually significant at this time - Continued observation - Discussed repeat assessment if she notes worsening glare symptoms or reduced vision RTC for a standalone HVF I, Liz Shaikh, have performed the documentation for this encounter in the presence of and acting as a scribe for Maite Russo MD. I performed the services which were documented by the scribe, and I agree with the accuracy of the documentation in this encounter. Maite Russo MD documented in this encounter Plan of Treatment Upcoming Encounters Date Type Department Care Team (Late st Contact Info) Description 04/07/2024 3:20 PM EDT Office Visit Dermatology at [facility] [address] [place] [address] Dayanna Ramírez MD [facility] [place] [address] documented as of this encounter Procedures Procedure Name Priority Date/Time Associated Diagnosis Comments OCT OPTIC NERVE - OU - BOTH EYES Routine 04/16/2020 4:05 PM EDT Visual field defects FUNDUS PHOTOS - OU- BOTH EYES Routine 04/16/2020 4:01 PM EDT Unspecified visual disturbance documented in this encounter Results * Oct Optic Nerve - OU - Both Eyes (04/16/2020 4:05 PM EDT) Anatomical Region Laterality Modality Other Narrative 04/16/2020 4:05 PM EDT Right Eye Quality was good. Findings include normal observations. Temporal thickness was normal. Superior thickness was normal. Nasal thickness was normal. Inferior thickness was normal. Left Eye Quality was good. Findings include normal observations. Temporal thickness was normal. Superior thickness was normal. Nasal thickness was normal. Inferior thickness was normal. Notes [place] [facility] OCT OD: ??Average RNFL: 83, classification = wnl OS: ??Average RNFL: 87, classification = wnl Implication: No thinning or swelling OU. Maite Fry MD OPHTHALMOLOGY SE RVICES ORDERABLES * Fundus Photos - OU - Both Eyes (04/16/2020 4:01 PM EDT) Anatomical Region Laterality Modality Other Narrative 04/16/2020 4:01 PM EDT Right Eye Disc findings include normal observations. Vessel findings include normal observations. Periphery findings include normal observations. Left Eye Disc findings include normal observations. Vessel findings include normal observations. Periphery findings include normal observations. Notes Normal discs Maite Fry MD OPHTHALMOLOGY SE RVICES ORDERABLES documented in this encounter Visit Diagnoses Diagnosis Unspecified visual disturbance Visual field defects Visual field defect, unspecified documented in this encounter Care Teams Accuracy Expert Relationship Specialty Start Date End Date Billie Ly MD [facility] [address] [place] [address] PCP - General Family Medicine 02/20/19 03/20/21 documented as of this encounter
--- OUTSIDE RECORDS SUMMARY | 2024-03-20 22:07 | XMS_ITS | Encounter Summary ---
Author Organization [facility] Address [facility] [place] [address] Care Team Providers Care Salvage Grinder Name Role Phone Yvette Reyes APRN Primary Care Provider [phone] Encounter Details Date Type Department Care Team (Latest Contact Info) Description 11/01/2022 Travel Social History Tobacco Use Types Packs/Day [...] 3:20 PM EDT Office Visit Dermatology at [facility] [address] [place] [address] Dayanna Ramírez MD [facility] [place] [address] documented as of this encounter Visit Diagnoses Not on filedocumented in this encounter Care Teams Salvage Grinder Relationship Specialty Start Date End Date Yvette Reyes APRN [address] [place] [address] PCP - General Family Medicine 03/21/21 09/23/23 documented as of this encounter
--- OUTSIDE RECORDS SUMMARY | 2024-03-20 22:07 | XMS_ITS | Encounter Summary ---
Author Organization [facility] Address [facility] [place] [address] Care Team Providers Care Boiler Tube Blower Name Role Phone Billie Ly MD Primary Care Provider [phone] Reason for Visit * Reason Comments Follow-up concussion on 05/12. Pt has since experiencing chest pain/pressure, SOB since concussion Encounter Details Date Type Department Care Team (Late st Contact Info) Description 05/19/2020 2:00 PM EDT Office Visit Family Medicine at [facility] [address] [place] [address] Oscar Benoit, WAX BALL MOLDER [facility] [address] RAYNE [facility]MON[facility] [place], [place] [id number] Post concussion syndrome; Chest pain, unspecified type; Immunization due Social History Tobacco Use Types Packs/Day Years Used Date Smoking Tobacco: Never Smokeless Tobacco: Never Alcohol Use Standard Drinks/Week Comments Not Currently 0 (1 standard drink = 0.6 oz pur e alcohol) rare Sex and Gender Information Value Date Recorded Sex Assigned at Not on file Gender Identity Not on file Sexual Orientation Not on file documented as of this encounter Last Filed Vital Signs Vital Sign Reading Time Taken Comments Blood Pressure 116/74 05/19/2020 2:06 PM EDT Pulse 79 05/19/2020 2:06 PM EDT Temperature 35.5 ??C (95.9 ??F) 05/19/2020 2:06 PM ED T Respiratory Rate 18 05/19/2020 2:06 PM EDT Oxygen Saturation 98% 05/19/2020 2:06 PM EDT Inhaled Oxygen Concentration - - Weight 80.5 kg (177 lb 6.4 oz) 05/19/2020 2:06 P M EDT Height - - Body Mass Index 33.24 03/24/2020 10:05 AM EDT documented in this encounter Patient Instructions * Patient Instructions* Oscar Benoit Micaela, WAX BALL MOLDER - 05/19/2020 2:00 PM EDT Images from the original note were not included. Patient Education Postconcussion Syndrome: Care Instructions Your Care Instructions Postconcussion syndrome occurs after a blow to the head or body. Common symptoms are changes in theability to concentrate, think, remember, or solve problems. Symptoms, which may include headaches, personality changes, and dizziness, may be related to stress from the events surrounding the accident that caused the injury. Follow-up care is a cooper part of your treatment and safety. Be sure to make and go to all appointments, and call your doctor if you are having problems. It's also a good idea to know your test resultsand keep a list of the medicines you take. How can you care for yourself at home? Pain ?? Rest is the best treatment for postconcussion syndrome. ?? Do not drive if you have taken a prescription pain medicine. ?? Rest in a quiet, dark room until your headache is gone. Close your eyes and try to relax or go to sleep. Do not watch TV or read. ?? Put a cold, moist cloth or cold pack on the painful area for 10 to 20 minutes at a time. Put a thin cloth between the cold pack and your skin. ?? Have someone gently massage your neck and shoulders. ?? Take your medicines exactly as prescribed. Call your doctor if you think you are having a problem with your medicine. You will get more details on the specific medicines your doctor prescribes. Stress ?? Try to reduce stress. Some ways to do this include: ? Taking slow, deep breaths. ? Soaking in a warm bath. ? Listening to soothing music. ? Having a massage or back rub. ? Drinking a warm, nonalcoholic, noncaffeinated beverage. ?? Get enough sleep. ?? Eat a healthy, balanced diet. A balanced diet includes whole grains, dairy, fruits and vegetables, and protein. Eat a variety of foods from each of those groups so you get all the nutrients you need. ?? Avoid alcohol and illegal drugs. ?? Try relaxation exercises, such as breathing and muscle relaxation exercises. ?? Talk to your doctor about counseling. It may help you deal with stress from your accident. When should you call for help? Watch closely for changes in your health, and be sure to contact your doctor if: ? You do not get better as expected. ? Your symptoms, such as headaches, trouble concentrating, or changes in mood, get worse. Where can you learn more? Visit our [employer] information library at [email or web address] [email or web address] You can also view health information on [employer], your personal patient account. Log in or sign uptoday. Enter Q768 in the search box to learn more about Postconcussion Syndrome: Care Instructions. Current as of: July 02, 2019?Content Version: 12.6 ?? [id number] [employer]. Care instructions adapted under license by [facility]. If you have questions about a medical condition or this instruction, always ask your healthcare professional. [employer] disclaims any warranty or liability for your use of this information. documented in this encounter Progress Notes * Oscar Benoit APRN - 05/19/2020 2:00 PM EDT Subjective: Patient ID: Yumiko Chang is a 50 y.o. female. Chief Complaint Patient presents with ??? Follow-up concussion on 05/12. Pt has since experiencing chest pain/pressure, SOB since concussion Behavorial Health Responses 03/24/2020 PHQ-2 Score 0 (Brief screen negative) Total PHQ-9 - BELKIS-2 Score 3 (Full BELKIS-7 indicated) Total BELKIS-7 11 (Moderate Anxiety) Audit Screener No Drug Screener No HPI Concussion 05/12 went shopping after donating blood and not eating Bent over to remove something from her cart Struck her head and was evaluated by EMS at the scene and told that she most likely had a concussion. She declined evaluation throught the ED and did not immediately follow up with PCP due to needing to care for her autistic son Initially expierieinced severe nausea, vomiting, headache and jaw pain. Denies photophobia or phonophobia. Feels she is in a mental fog Symptoms have been improving slightly each day Headaches are decreasing in frequency and she is able to walk more Two days after event she experienced new onset left sided chest pain and radiation down left arm. Feels significantly better today, no left sided chest pain Review of Systems See HPI Objective: BP 116/74 (BP Location (NBP): Left arm, Patient Position: Sitting, BP Cuff Sizes: Adult (25-34 cm)) Pulse 79 Temp 35.5 ??C (95.9 ??F) (Temporal) Resp 18 Wt 80.5 kg (177 lb 6.4 oz) LMP 05/30/2015 SpO2 98% BMI 33.24 kg/m?? Physical Exam Constitutional: General: She is not in acute distress. Appearance: Normal appearance. She is not ill-appearing. HENT: Head: Normocephalic and atraumatic. Eyes: General: No visual field deficit or scleral icterus. Extraocular Movements: Extraocular movements intact. Pupils: Pupils are equal, round, and reactive to light. Neck: Musculoskeletal: Normal range of motion. Cardiovascular: Rate and Rhythm: Normal rate and regular rhythm. Pulses: Normal pulses. Heart sounds: Normal heart sounds. Pulmonary: Effort: Pulmonary effort is normal. Breath sounds: Normal breath sounds. Musculoskeletal: Normal range of motion. General: No tenderness or signs of injury. Neurological: Mental Status: She is alert. Cranial Nerves: Cranial nerves are intact. No cranial nerve deficit. Sensory: Sensation is intact. No sensory deficit. Motor: Motor function is intact. No weakness, tremor, abnormal muscle tone or pronator drift. Coordination: Coordination is intact. Romberg sign negative. Coordination normal. Tuwste-Pldk-Esynzb Test and Heel to Amanda Test normal. Rapid alternating movements normal. Gait: Gait is intact. Gait and tandem walk normal. Deep Tendon Reflexes: Reflexes are normal and symmetric. Psychiatric: Attention and Perception: Attention normal. Mood and Affect: Mood normal. Speech: Speech normal. Assessment and Plan: 50 year old female who recently passed out in the grocery store after bending over to remove something from her cart after giving blood earlier today and not eating. Her neurologic exam was normal, and an EKG was performed given her previous symptoms of chest pain and her cardaic history. EKG was WNL. She continues to feel improvement each day and her headaches have been decreasing in frequency and intensity. We discussed a diagnosis of post concussive syndrome and discussed conservative treatment measures in addition to retern to clinic criteria 1. Post concussion syndrome 2. Chest pain, unspecified type - EKG 12 Lead 3. Immunization due - Shingrix Zoster Vaccine, IM - Pneumococcal polysaccharide vaccine 23-valent greater than or equal to 2yo subcutaneous/IM When should you call for help? Watch closely for changes in your health, and be sure to contact your doctor if: ? You do not get better as expected. ? Your symptoms, such as headaches, trouble concentrating, or changes in mood, get worse. documented in this encounter Plan of Treatment Upcoming Encounters Date Type Department Care Team (Late st Contact Info) Description 04/07/2024 3:20 PM EDT Office Visit Dermatology at [address] [address] Dayanna Ramírez MD [facility] [address] RAYNE [place] [address] documented as of this encounter Procedures Procedure Name Priority Date/Time Associated Diagnosis Comments EKG 12-LEAD Routine 05/19/2020 2:37 PM EDT Chest pain, unspecified type documented in this encounter Results * EKG 12 Lead (05/19/2020 2:37 PM EDT) Ventricular rate 66 BPM MUSE SYSTEM Atrial Rate 66 BPM MUSE SYSTEM P-R Interval 150 ms MUSE SYSTEM QRS Duration 88 ms MUSE SYSTEM Q-T Interval 400 ms MUSE SYSTEM QTC Calculated (Bezet) 419 ms MUSE SYSTEM Calculated P [place] 31 degrees MUSE SYSTEM Calculated R [place] 65 degrees MUSE SYSTEM Calculated T [place] 41 degrees MUSE SYSTEM INTERPRETATION Normal sinus rhythm Normal ECG When compared with ECG of 05-JUN-2017 13:27, No significant change was found Confirmed by MD Mendoza Daniel ([id number]) on 05/21/2020 12:34:10 PM MUSE SYSTEM 05/19/2020 2:37 PM EDT 05/21/2020 12:34 PM EDT Oscarmyrna Benoit WAX BALL MOLDER ECG ORDERABLES MUSE SYSTEM documented in this encounter Visit Diagnoses Diagnosis Post concussion syndrome Postconcussion syndrome Chest pain, unspecified type Immunization due Need for prophylactic vaccination and inoculation against unspecified single disease documented in this encounter Care Teams Boiler Tube Blower Relationship Specialty Start Date End Date Billie Ly MD [facility] [place] [address] PCP - General Family Medicine 02/20/19 03/20/21 documented as of this encounter
--- OUTSIDE RECORDS SUMMARY | 2024-03-20 22:07 | XMS_ITS | Encounter Summary ---
Author Organization [facility] Address [facility] [place] [address] Care Team Providers Care Supervisor Refining Name Role Phone Yvtete Reyes APRN Primary Care Provider [phone] Encounter Details Date Type Department Care Team (Late st Contact Info) Description 02/26/2023 Transcribe Orders eDH Incoming Referrals [phone] Mart Cordoba, KAMI [address] [place], [place] [id number] Social History Tobacco Use Types Packs/Day Years [...] 3:20 PM EDT Office Visit Dermatology at [facility] [address] [place] [address] Dayanna Ramírez MD [facility] DR RAYNE DENG-[place] [address] documented as of this encounter Visit Diagnoses Not on filedocumented in this encounter Care Teams Supervisor Refining Relationship Specialty Start Date End Date Yvette Reyes APRN [address] [place] [address] [address] [place], [place] [id number] PCP - General Family Medicine 03/21/21 09/23/23 documented as of this encounter
--- OUTSIDE RECORDS SUMMARY | 2024-03-20 22:07 | XMS_ITS | Encounter Summary ---
Author Organization [facility] Address [facility] [place] [address] Care Team Providers Care On Line Csr Name Role Phone Billie Ly MD Primary Care Provider [phone] Reason for Visit * Reason Onset Date Comments Follow-up 04/20/2020 Encounter Details Date Type Department Care Team (Late st Contact Info) Description 04/20/2020 [place] [phone] Maite Fry MD [facility] [place] [address] Follow-up Social History Tobacco Use Types Packs/Day Years [...] encounter Miscellaneous Notes * Telephone Encounter - Vianey Scott - 04/26/2020 11:30 AM EDT Patient scheduled * Telephone Encounter - Vianey Scott - 04/20/2020 4:20 PM EDT Called and left message for patient to call and schedule a stand alone visual field per (Please schedule for a standalone HVF 24-2 YESY Standard. documented in this encounter Plan of Treatment Upcoming Encounters Date Type Department Care Team (Late st Contact Info) Description 04/07/2024 3:20 PM EDT Office Visit Dermatology at [facility] [address] [place] [address] Dayanna Ramírez MD [facility] [address] [place] [address] documented as of this encounter Visit Diagnoses Not on filedocumented in this encounter Care Teams On Line Csr Relationship Specialty Start Date End Date Billie Ly MD [facility] [place] [place] [address] PCP - General Family Medicine 02/20/19 03/20/21 documented as of this encounter
--- OUTSIDE RECORDS SUMMARY | 2024-03-20 22:07 | XMS_ITS | Encounter Summary ---
Author Organization [facility] Address [facility] [place] [address] Care Team Providers Care Extractor Operator Name Role Phone Yvette Reyes JOAN Primary Care Provider [phone] Encounter Details Date Type Department Care Team (Late st Contact Info) Description 06/04/2023 11:20 AM EDT Office Visit Dermatology at [facility] [address] [place] [address] Dayanna Ramírez MD [facility] [place] [address] Intertrigo; Acne vulgaris; Unwanted hair Social History Tobacco Use Types Packs/Day Years [...] Progress Notes * Dayanna Ramírez MD - 06/04/2023 11:20 AM EDT Images from the original note were not included. DEPARTMENT OF DERMATOLOGY Medical Dermatology Clinic Provider: Dayanna Ramírez MD Patient's preferred name Yumiko Preferred contact method for results []Phone []myD-H []Letter Detailed phone message OK? Y Are there any other people with whom we may discuss your care? 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 Patient returns to clinic today for a follow up of intertrigo patient reports the following. - Intertrigo is still clear on exam since last visit and patient is content with her current therapy plan. Patient has not started topical hydrocortisone cream and has been using clotrimazole cream for treatments. Last visit at Dermatology: 04/05/2023 Last visit with this provider: 04/05/2023 Medications: Reviewed in eD-H Allergies: Reviewed in eD-H Skin Examination: Focused skin examination of the abdomen and face was normal with the exception of the findings below. Assessment/Plan #. Intertrigo-clear on exam - counseled that intertrigo is a chronic inflammatory condition of approximating or opposing skin surfaces (intertriginous skin) such as the axillae, groin, inframammary folds, abdominal folds, and/or labiocrural folds. -Ensure intertriginous areas are completely dry after bathing -Avoid excessive heat and/or sweating as friction and moisture can exacerbate disease -Patient would benefit from tucking cotton or linen towels or cloths between the opposing skin folds. - Recommend OTC clinical strength anti perspirant to affected areas nightly - continue and refill Rx: Clotrimazole cream BID x 14 days for flares, otherwise can use 1-2 x a week thereafter - reassured that this is not life threatening, is common and manageable with above #. Acne Vulgaris - few open and closed comedones on the chin - Discussed pathogenic factors, including comedo formation, hormonal influences, oil production, and irritation from bacterial breakdown of oil products. - Discussed treating with oral or topical therapies or a combination. Both treatments were discussed at length. - Start Rx tretinoin 0.025% cream: Apply a pea size amount to the face nightly. As it can be irritating, start 2-3 times per week and slowly increase to nightly use. Can also mix with a bland moisturizer to help with irritation. - Consider protopic as a treatment option if patient does not improve with topical tretinoin treatment. - Discussed GoodRx with patient, coupon printed and provided. #. 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 Patient was quoted $150 per treatment session, patient is aware multiple cosmetic treatment sessions. Patient may consider laser hair removal treatment in the future. Other: N/A RTC: 6 months for intertrigo follow up []Note routed to area secretary [x]Recall placed in scheduling system []Appointment scheduled at checkout Scribe attestation: Ori Bryce Reyna has performed the documentation for this encounter in the presence of and acting as a scribe for Dayanna Ramírez MD. I performed the above scribed service and agree with the accuracy of the documentation in this encounter. Reviewed and signed by: Dayanna Ramírez MD Dermatology [facility] Patient seen and evaluated with staff pipe covering molder: Pacheco Smiley MD Dermatology [facility] * Pacheco Smiley MD - 06/04/2023 11:20 AM EDT I was the supervising physician working with Dermatology resident, in the Dermatology Clinic duringthis patient visit. The level of resident supervision for this patient visit was with direct supervision (definition: [facility] [place] Statement on Graduate Medical Education, Supervision of Graduate Medical Trainees). I was immediately available for questions and discussion regarding this visit. I have reviewed this encounter note details and level of service. Pacheco Smiley MD, FAAD Staff Dermatoogist Department of Dermatoogy [facility] documented in this encounter Plan of Treatment Upcoming Encounters Date Type Department Care Team (Late st Contact Info) Description 04/07/2024 3:20 PM EDT Office Visit Dermatology at [facility] [address] [place] [address] Dayanna Ramírez MD [facility] [place] [address] documented as of this encounter Visit Diagnoses Diagnosis Intertrigo Other specified erythematous condition Acne vulgaris Other acne Unwanted hair Unspecified disease of hair and hair follicles documented in this encounter Care Teams Extractor Operator Relationship Specialty Start Date End Date Yvette Reyes, JOAN [address] [place] [address] PCP - General Family Medicine 03/21/21 09/23/23 documented as of this encounter
--- OUTSIDE RECORDS SUMMARY | 2024-03-20 22:07 | XMS_ITS | Encounter Summary ---
Author Organization [facility] [place] [address] Care Team Providers Care Veterinary Surgery Technologist Name Role Phone Billie Monzon MD Primary Care Provider Reason for Visit * Reason Onset Date Comments Prior Authorization 10/06/2019 Naproxen Encounter Details Date Type Department Care Team (Late st Contact Info) Description 10/06/2019 Telephone Family Medicine at [facility] [address] [place] [address] Jessica Friedman, [facility] Prior Authorization (Naproxen) Social History Tobacco Use Types Packs/Day Years Used Date Smoking Tobacco: Never Smokeless Tobacco: Never Alcohol Use Standard Drinks/Week Comments No 0 (1 standard drink = 0.6 oz pur e alcohol) rare Sex and Gender Information Value Date Recorded Sex Assigned at Not on file Gender Identity Not on file Sexual Orientation Not on file documented as of this encounter Miscellaneous Notes * Addendum Note - Billie Monzon MD - 10/07/2019 3:58 PM ESTAddended by: BILLIE MONZON on: 10/07/2019 03:58 PM Modules accepted: Orders * Telephone Encounter - Billie Monzon MD - 10/07/2019 3:58 PM EST Changed to covered alternative. Thank you! ANS * Telephone Encounter - Tram Sow CCMA - 10/06/2019 2:27 PM EST Images from the original note were not included. Medication Prior Authorization for Primary Care ? DENIED: Naproxen Tab ?? Case/Reference #: [id number] ?? Additional Information from Insurance: * Telephone Encounter - Jessica Friedmna CMA - 10/06/2019 12:18 PM EST Medication Prior Authorization for Primary [place] [address] Request received via: Pharmacy Patient: Yumiko Chang Patient : 1970 Insurance Company: [place] Medicaid Sent via: [facility] [employer] Veronica: [id number] Physician: Billie Monzon MD Medication Requested: naproxen sodium (ANAPROX) 550 mg Tablet Frequency/Sig: Take 1 tablet by mouth 2 times daily as needed. Disp: 60 Refills: 2 Currently taking: yes If yes, how lon Diagnosis for this medication: NEENA (juvenile idiopathic arthritis) (M08.90) Prior medications trialed in this patient: Medication: Diclofenac tab Approx Dates: 6992-9763 Outcome/Adverse Reactions: inadequate response documented in this encounter Plan of Treatment Upcoming Encounters Date Type Department Care Team (Late st Contact Info) Description 04/07/2024 3:20 PM EDT Office Visit Dermatology at [facility] [address] [place] [address] Dayanna Ramírez MD [facility] [address] [place] [address] documented as of this encounter Visit Diagnoses Diagnosis NEENA (juvenile idiopathic arthritis) Other specified inflammatory polyarthropathies documented in this encounter Care Teams Veterinary Surgery Technologist Relationship Specialty Start Date End Date Billie Monzon MD [facility] [address] [facility] [place] [address] PCP - General Family Medicine 02/20/19 03/20/21 documented as of this encounter
--- OUTSIDE RECORDS SUMMARY | 2024-03-20 22:07 | XMS_ITS | Encounter Summary ---
[facility] Organization [facility] [place] [address] Care Team Providers Care Bobbin Coil Winder Name Role Phone Yvette Reyes APRN Primary Care Provider [phone] Encounter Details Date Type Department Care Team (Late st Contact Info) Description 04/24/2023 10:41 AM EDT - 04/24/2023 11:59 PM EDT Hospital Encounter Mammography/[place] [address] Mart Cordoba, DNP [address], [place] [id number] Screening mammogram for breast cancer Discharge Disposition: Home Social History Tobacco Use Types Packs/Day Years Used Date Smoking Tobacco: Never Smokeless Tobacco: Never Alcohol Use Standard Drinks/Week Comments Not Currently 0 (1 standard drink = 0.6 oz pur e alcohol) rare Sex and Gender Information Value Date Recorded Sex Assigned at Not on file Gender Identity Not on file Sexual Orientation Not on file documented as of this encounter Medications at Time of Discharge Medication Sig Dispensed Refills Start Date End Date cholecalciferol (Vitamin D3) 1,000 unit tablet Take 1,000 Units by mouth daily. 03/02/2023 hydrocortisone 1 % CreamIndications:Intert andi Apply twice daily for no more than 14 days 30 g 3 04/05/2023 dicyclomine (BENTYL) 20 mg Tablet Take 20 mg by mouth every 6 hours. famotidine (Pepcid) 20 mg Tablet Take 20 mg by mouth 2 times daily. naproxen (NAPROSYN) 500 mg Tablet TAKE 1 TABLET BY MOUTH TWICE DAILY WITH MEALS 60 tablet 3 10/08/2020 cetirizine (ZYRTEC) 10 mg Tablet Take 1 tablet by mouth daily. 90 tablet 3 06/04/2019 levalbuterol (XOPENEX HFA) 45 mcg/actuation HFA Aerosol InhalerIndications:Mild intermittent asthma without complication Inhale 1-2 puffs into the lungs every 4 hours as needed. 1 Inhaler 3 04/18/2016 clotrimazole (LOTRIMIN) 1 % CreamIndications:Intert andi Apply topically twice daily x 21 days, then 1-2 x a week thereafter 30 g 3 04/05/2023 06/04/2023 ondansetron (Zofran) 4 mg tablet Take 1 tablet by mouth every 8 hours as needed for Nausea. 12 tablet 03/02/2023 06/18/2023 pantoprazole EC (Protonix) 20 mg Tablet, Delayed Release (E.C.) Take 1 tablet by mouth daily. 90 tablet 05/19/2020 06/18/2023 documented as of this encounter Plan of Treatment Upcoming Encounters Date Type Department Care Team (Late st Contact Info) Description 04/07/2024 3:20 PM EDT Office Visit Dermatology at [address] [address] Dayanna Ramírez MD [facility] [address] [place] [address] documented as of this encounter Procedures Procedure Name Priority Date/Time Associated Diagnosis Comments MAMMO SCREENING CAD AND LIVIA BILATERAL Routine 04/24/2023 11:10 AM EDT Screening mammogram for breast cancer documented in this encounter Results * Mammo Screening Cad and Livia Bilateral (04/24/2023 11:10 AM EDT) Anatomical Region Laterality Modality Breast Bilateral Mammography Narrative 04/24/2023 11:40 AM EDT BILATERAL MAMMOGRAPHY REASON FOR EXAM: Screening TECHNIQUE: CC and MLO views were obtained of each breast using standard 2-D mammography as well as 3-D tomosynthesis. Computer aided detection was used. This is compared with prior images. FINDINGS: ??The breasts are heterogeneously dense, which may obscure small masses. There are no suspicious microcalcifications, masses, or areas of distortion. The pattern is stable. CONCLUSION: No mammographic evidence of malignancy. RECOMMENDATION: ? ? Regular screening mammograms starting at age 40 reduces the risk of from breast cancer. ? ? Yearly screening provides the most benefit. Women should discuss with their provider their preferred breast cancer screening schedule. ? ? Women should report any breast changes to a health care provider right away. ? ? Some women, because of their family history, a genetic tendency, or other factors, should be screened with annual breast MRI as well as with mammograms. A result letter has been sent to this patient by [facility]. BIRADS CATEGORY 1: NEGATIVE Electronically signed by: JUAN CARLOS CHAMPAGNE MD Mart Felipeteresita Beryl [facility] MAMMO ORDERABLE S documented in this encounter Visit Diagnoses Diagnosis Screening mammogram for breast cancer documented in this encounter Care Teams Bobbin Coil Winder Relationship Specialty Start Date End Date Yvette Reyes, JOAN [address] [facility] [place] [address] PCP - General Family Medicine 03/21/21 09/23/23 documented as of this encounter
--- OUTSIDE RECORDS SUMMARY | 2024-03-20 22:07 | XMS_ITS | Encounter Summary ---
Author Organization [facility] Address [facility] [place] [address] Care Team Providers Care Peat Shredder Tender Name Role Phone Billie Ly MD Primary Care Provider [phone] Reason for Visit * Reason Onset Date Comments Triage 11/15/2020 Encounter Details Date Type Department Care Team (Late st Contact Info) Description 11/15/2020 Telephone Family Medicine at [facility] [address] [place] [id number] Malick Morgan Triage Social History Tobacco Use Types Packs/Day Years [...] encounter Miscellaneous Notes * Telephone Encounter - Kimberlyn Murphy RN - 11/15/2020 11:47 AM EDT Returned call to Yumiko and explained that we are unable to send in antibiotics without an appointment. 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 Patient expressed understanding and requests to cancel 11/[address] Ly, as she will seek to establish care with a provider outside of the [facility] system. * Telephone Encounter - Kimberlyn Murphy RN - 11/15/2020 10:54 AM EDT D/W COS, Oscar Benoit APRN. Unable to send in abx without appt. Attempted to return call to [facility]; call went immediately to unidentified . Left message requesting return call to clinic and providing clinic callback number. * Telephone Encounter - Kimberlyn Murphy RN - 11/15/2020 9:52 AM EDT Uncomplicated Cystitis Phone Triage Note Eligibility for Protocol (check all that apply): Eligible if all apply: [x] Female [x] Age 65 or younger [x] At least one of the following symptoms: X - Urinary frequency X - Urinary urgency X - Pain/burning with urination Ineligible if any apply: [] Male (review history, schedule for appt as indicated) [] Over age 65 (review history, schedule or discuss with PCP prior to treating by phone) Description of symptoms: Sx began a 2-3 weeks ago. Foul odor; rotton egg bacteria smell Pain throughout abdomen, including flank pain. Also having diarrhea. Slightly blood tinged urine. Does not get fevers so has been afebrile. Discussed that with her sx, she needs in office appt. Cannot come in for appt prior to 11/19 as she is watching her 1 y/o granddaughter. Cannot drop of UA at local lab for same reason - does not want to expose granddaughter. Has previously been followed by urology who called in abx over the phone. Let patient know that we also have a phone protocol that we could use if we'd triaged sooner. She explains that she baseline has feelings of heaviness and pubic pain so she holds off on calling sooner. Would use [facility] in [place]. Does have 11/[address] Ly. Does the patient have any of the following: [] Fever greater than 100F [x] Flank pain [x] Nausea and vomiting [] Gross Hematuria [] Vaginal discharge If yes to any, schedule 40/60 minute appointment. If no to all, proceed with protocol. Does the patient have any of the following conditions: [] , or premenopausal with LMP > 30 days prior [] Diabetes [x] Symptoms present for more than 3 days [] Renal insufficiency or renal failure/chronic kidney disease [] Use of a contraceptive diaphragm [] Use of a urinary catheter [] Immunosuppression due to medical problem or medication [] More than 3 UTI???s in the past year [] Last UTI less than 30 days ago If Yes to any, schedule 20/30 minute appointment. If No to all: ?? Treat with one of the followin. If no allergy, not or nursing: NITROFURANTOIN (Macrobid) 100 MG Q12 HOURS X 5 DAYS 2. If allergy/drug interaction with Nitrofurantoin and no TMP/SMX allergy/interaction: TMP/SMX DS BID X 3 DAYS 3. Third line: Contact Provider ?? If patient is on warfarin - notify anticoag clinic of antibiotic treatment. ?? Offer/recommend pyridium 200 mg q8 hr prn for up to 3 days for voiding (may purchase over the counter). Note sent to Oscar Benoit APRN ([facility]) for review. * Telephone Encounter - Malick Morgan - 11/15/2020 9:13 AM EDT Message: Patient states, she is experiencing UTI symptoms and is unable to way until her follow up visit on 11/19 with Billie Ly MD. Please call patient to discuss further. Ask caller their first and last name and relationship to the patient: Yumiko Chang Best time to call back: any Ok to leave a message: yes Ok to send my- message: yes Offered Appointment: Patient already has a follow up visit on 11/19. MA/Nurse/Cl[place]ton contacted via: Message: yes Call: yes Pager: no * Telephone Encounter - Malick Morgan - 11/15/2020 9:13 AM EDT Patient returning a missed phone call from the nurse. Please call to discuss further. documented in this encounter Plan of Treatment Upcoming Encounters Date Type Department Care Team (Late st Contact Info) Description 04/07/2024 3:20 PM EDT Office Visit Dermatology at [facility] [address] [place] [address] Dayanna Ramírez MD [facility] [address] [place] [address] documented as of this encounter Visit Diagnoses Not on filedocumented in this encounter Care Teams Peat Shredder Tender Relationship Specialty Start Date End Date Billie Ly MD [facility] [address] [facility] [address] PCP - General Family Medicine 02/20/19 03/20/21 documented as of this encounter
--- OUTSIDE RECORDS SUMMARY | 2024-03-20 22:07 | XMS_ITS | Encounter Summary ---
Author Organization [facility] Address [facility] [place] [address] Care Team Providers Care Technical Sales Support Specialist Name Role Phone EricYvette JOAN Primary Care Provider [phone] Reason for Visit * Reason Comments Rash * Consultation (Routine) - Closed Specialty Diagnoses / Procedures Referred By Contac t Referred To Contact Dermatology Diagnoses Rash and other nonspecific skin eruption Skin yeast infection Chicho Gracia, PA [facility] [place] [address] [facility] Dermatology [address] [place] [address] Referral ID Status Reason Start Date Expiration Date V isits Requested Visits Authorized [id number] Closed Consult, Test & Treat 11/01/2022 11/01/2023 1 1 Encounter Details Date Type Department Care Team (Late st Contact Info) Description 04/05/2023 9:40 AM EDT Office Visit Dermatology at [facility] [address] [place] [address] Dayanna Ramírez MD [facility] [address] [place] [address] Intertrigo; Dermatofibroma Social History Tobacco Use Types Packs/Day Years [...] Progress Notes * Dayanna Ramírez MD - 04/05/2023 9:40 AM EDT Images from the original note were not included. DEPARTMENT OF DERMATOLOGY Medical Dermatology Clinic Note Provider: Dayanna Ramírez MD Patient's preferred name [...] implant) N History of Present Illness: Yumiko De Leon is a 53 y.o. Patient is referred to the clinic at the request of Chicho Garcia for rash under breasts. -2019 was very sick and since then she has dealt with rash -she states she could not get in to see anyone including dermatology, primary care downstairs and tried to transition to [facility] and she tells us all refused to see her -she states she has a lot of allergies and can only use Secret Deoderant but she will review the ingredients -rash smells like spoiled milk -she has much to discuss and asks about menopause, sexual activity and other issues Review of Systems: General: Feeling well. Skin: No other skin concerns. Medications: Reviewed in [facility] Allergies: Reviewed in [facility] Skin Examination: Focused skin examination of the inframmary folds was normal with the exception of the [...] strength anti perspirant to affected areas nightly -Rx: hydrocortisone 1% cream BID for no more than 14 days for flares, otherwise can use 1-2 x a week thereafter - Rx: Clotrimazole cream BID x 14 days for flares, otherwise can use 1-2 x a week thereafter - reassured that this is not life threatening, is common and manageable with above #. Dermatofibromas - Firm papules, centrally raised and sclerotic, with peripheral hyperpigmentation and dimpling with lateral pressure on the left abrams x3. - Discussed that these are benign fibrous (scar-like) lesions. No treatment necessary. Other: Reviewed and/or interpreted test results OTC skin products discussed RTC: 3 months for follow up. Scribe attestation: Jelena Sheikh [facility] has performed the documentation for this encounter inthe presence of and acting as a scribe for Dayanna Ramírez MD. I performed the above scribed service and agree with the accuracy of the documentation in this encounter. Reviewed and signed by: Dayanna Ramírez MD [facility] Patient seen and evaluated with staff iron molder helper: Mahendra Cassidy MD Department [facility] * Mahendra Cassidy MD - 04/05/2023 9:40 AM EDT I directly supervised the Dermatology resident during this office visit. The resident presented thehistory and physical exam to me. I then saw and examined this patient with the resident. We reviewed the history and pertinent details and I confirmed the physical findings. I agree with the details of the history and physical exam as documented in the resident's note. MAHENDRA CASSIDY MD Staff Physician documented in this encounter Plan of Treatment Upcoming Encounters Date Type Department Care Team (Late st Contact Info) Description 04/07/2024 3:20 PM EDT Office Visit Dermatology at [facility] [address] [place] [address] Dayanna Ramírez MD [facility] [address] [place] [address] documented as of this encounter Visit Diagnoses Diagnosis Intertrigo Other specified erythematous condition Dermatofibroma Benign neoplasm of skin, site unspecified documented in this encounter Care Teams Technical Sales Support Specialist Relationship Specialty Start Date End Date Yvette Reyes APRN [address] [place] [address] PCP - General Family Medicine 03/21/21 09/23/23 documented as of this encounter
--- OUTSIDE RECORDS SUMMARY | 2024-03-20 22:07 | XMS_ITS | Encounter Summary ---
Author Organization [facility] Address [facility] [place] [address] Care Team Providers Care Supervisor Central Supply Name Role Phone Teresa Reyesh JOAN Primary Care Provider [phone] Reason for Referral * Consultation (Routine) - Closed Specialty Diagnoses / Procedures Referred By Contac t Referred To Contact Dermatology Diagnoses Rash and other nonspecific skin eruption Skin yeast infection Chicho Garcia PA [facility] [address] [facility] [address] [facility] [address] [place] [address] Referral ID Status Reason Start Date Expiration Date V isits Requested Visits Authorized [id number] Closed Consult, Test & Treat 11/01/2022 11/01/2023 1 1 * Consultation (Routine) - Closed Specialty Diagnoses / Procedures Referred By Contac t Referred To Contact Internal Medicine Diagnoses History of asthma History of hyperthyroidism Chicho Garcia PA [facility] [place] [address] [facility] [address] [place] [address] Referral ID Status Reason Start Date Expiration Date V isits Requested Visits Authorized [id number] Closed Consult, Test & Treat 11/01/2022 11/01/2023 1 1 Reason for Visit * Reason Comments Rash Encounter Details Date Type Department Care Team (Late st Contact Info) Description 11/01/2022 12:58 PM EDT - 11/01/2022 2:17 PM EDT Emergency [place] [phone] Rash and other nonspecific skin eruption; Skin yeast infection; History of asthma; History of hyperthyroidism Discharge Disposition: Home Social History Tobacco Use [...] Sign Reading Time Taken Comments Blood Pressure 118/91 11/01/2022 11:52 AM EDT Pulse 78 11/01/2022 11:52 AM EDT Temperature 36 ??C (96.8 ??F) 11/01/2022 11:52 AM EDT Respiratory Rate 18 11/01/2022 11:52 AM EDT Oxygen Saturation 97% 11/01/2022 11:52 AM EDT Inhaled Oxygen Concentration - - Weight 72.6 kg (160 lb) 11/01/2022 11:58 AM EDT Height 154.9 cm (5' 1) 11/01/2022 11:58 AM EDT Body Mass Index 30.23 11/01/2022 11:58 AM EDT documented in this encounter Discharge Instructions * Discharge Instructions* Chicho Garcia PA - 11/01/2022 1:57 PM EDT -Your exam and vital signs did not show any significant infections in your chest wall, you have a mild yeast infection under your left breast which is very small - You should wash in the shower 1-2 times daily make sure you are drying properly, you can use ruue-qks-mthlalw yeast ointment or powders on your chest rash as needed - We have put a referral in for dermatology follow-up in the office she should be contacted with a time for an appointment - We have also put a referral in for primary care follow-up at [facility] - Return to the emergency department for increased problems or concerns with a rash or any other issues * Attachments The following attachments cannot be sent through Care Everywhere. * Shannon Dermatitis (Italian) * Rash (Italian) documented in this encounter Medications at Time of Discharge Medication Sig Dispensed Refills Start Date End Date dicyclomine (BENTYL) 20 mg Tablet Take 20 [...] hours as needed. 1 Inhaler 3 04/18/2016 pantoprazole EC (Protonix) 20 mg Tablet, Delayed Release (E.C.) Take 1 tablet by mouth daily. 90 tablet 05/19/2020 06/18/2023 documented as of this encounter ED Notes * Chicho Garcia PA - 11/01/2022 2:00 PM EDT ED Provider Note HPI: Yumiko De Leon is a 52 y.o. female history of asthma, GERD, PTSD, fibromyalgia, juvenile arthritis,Suzy-Danlos syndrome, pneumonia, hypothyroidism, prior laparoscopy, LEEP procedure, tubal ligation. She comes into the emergency department complaints of a rash. History is obtained from the patient. She reports she had a rash on her chest for 2 to 3 years. Is waxed and waned in intensity. It started before COVID and she has not really been able to get into see anyone. Previously was seen by PCP in [place]. But is now moved to [facility]. She has not been able to see anybody since then. Describes the rash is sometimes itchy. Is mostly under her breasts and then sometimes spreads up into the middle part of her chest between the breast. She has had no fevers. No significant rashes elsewhere. Has tried ngtr-ywp-ifqrvxq topical remedies but it continues to recur. She complains of it being malodorous despite the fact that she is washing it regularly. Because of this she decided to come in for evaluation to the emergency department She says she does not smoke, drink, use drugs, currently lives in her apartment with family in [place], prior to that was homeless for some time has been dealing with a lot of social issues. Patient's medications and allergies were reviewed but not adjusted in the emergency department ROS as per HPI Vitals: ED Triage Vitals [11/01/22 1152] BP: (!) 118/91 Heart Rate: 78 Resp: 18 Temp: 36 ??C (96.8 ??F) Temp src: Temporal SpO2: 97 % O2 Device: RA O2 Flow Rate (L/min): n/a Physical Exam Vitals and nursing note reviewed. Constitutional: General: She is not in acute distress. Comments: Middle-age female resting in a chair in the triage area in no distress HENT: Head: Normocephalic and atraumatic. Mouth/Throat: Mouth: Mucous membranes are moist. Pharynx: Oropharynx is clear. Comments: Speech is fluent Cardiovascular: Rate and Rhythm: Normal rate and regular rhythm. Heart sounds: No murmur heard. No friction rub. No gallop. Pulmonary: Effort: Pulmonary effort is normal. Breath sounds: No wheezing, rhonchi or rales. Chest: Chest wall: No tenderness. Abdominal: General: Abdomen is flat. Bowel sounds are normal. Palpations: Abdomen is soft. Tenderness: There is no abdominal tenderness. Musculoskeletal: General: Normal range of motion. Cervical back: Normal range of motion and neck supple. No rigidity. Comments: Patient moves the arms and legs normally. No significant lower extremity edema Skin: General: Skin is warm and dry. Comments: Patient was evaluated with the nurse in the room. She has no major rash on her chest. There was a slight excoriated area under the left breast which appears to be possibly slightly yeasty in appearance. There was no rash or skin abnormalities under the right breast. No mid chest or sternal skin changes. No changes on the abdomen except for some striae. The back also was without any rash. Neurological: General: No focal deficit present. Mental Status: She is alert and oriented to person, place, and time. Motor: No weakness. Coordination: Coordination normal. Psychiatric: Comments: Mildly anxious in the emergency department ED Course: I have reviewed labs and imaging, images and available reports, No orders to display Procedures Assessment and Plan: 52 y.o. female with history of asthma, fibromyalgia, GERD, juvenile arthritis, PTSD, Suzy Danlos syndrome, pneumonia, hypothyroidism. She comes to the emergency room with complaints of a rash. Emma has had it for 3 years in a waxing and waning fashion. Been mostly on her chest. It comes underher breast. She is treated intermittently with xmje-qki-mgnjpjc yeast type medicines. It is sometimes itchy. She said no fevers. She complains of bumps on her chest. She says it is also malodorous. Here in the emergency room he is afebrile hemodynamically stable. Her exam is really very benign. Find no focal significant abnormalities. She does have trace amount of irregularity under the left breast about 2 to 3 cm with possible yeasty appearance. It is not cellulitic. There is no skin breakdown. No obvious nodular lesions or other skin lesions on the chest abdomen or back. This certainly may be a recurrent yeast issue. She certainly nontoxic-appearing. She is also concerned she does not have primary care follow-up. Based on all this I am referring her to [facility] primary care. We will also puta referral in for dermatology for reevaluation with them about her skin issues. I do not think any other testing interventions are indicated in the emergency department today with a negative exam andnormal vital signs. She should return here for any increased problems with the rash or other concerns Final diagnosis #1 nonspecific skin rash #2 possible yeast infection #3 history of asthma #4 history hypothyroidism Disposition Home stable Chicho Garcia PA 11/01/22 1401 documented in this encounter Miscellaneous Notes * ED Triage - Jenny Arizmendi RN - 11/01/2022 11:53 AM EDT Pt has had rash for about a year but has been unable to get PCP apt. Pt states started as yeast infection because it has odor, is all under both breasts and spread onto chest and up to neck. Pt states is painful unless she bathes then it gets better. Pt states is like completely raw, has tried yeast creams which help for some time but then it comes back and it keeps spreading. Pt does state it is itchy as well, does not know origin. No other sx, no fevers currently. Pt has new housing 6 months ago that she says is dirty, and now is devloping some sores and is worried it could be from that as well. documented in this encounter Plan of Treatment Upcoming Encounters Date Type Department Care Team (Late st Contact Info) Description 04/07/2024 3:20 PM EDT Office Visit Dermatology at [facility] [address] [place] [address] Dayanna Ramírez MD [facility] [address] [facility] [place] [address] Scheduled Referrals Name Type Priority Associated Diagnoses Orde r Schedule Referral to General Internal Medicine Outpatient Referral Routine History of asthma History of hyperthyroidism Ordered: 11/01/2022 Referral to Dermatology Outpatient Referral Routine Rash and other nonspecific skin eruption Skin yeast infection Ordered: 11/01/2022 documented as of this encounter Visit Diagnoses Diagnosis Rash and other nonspecific skin eruption Skin yeast infection Candidiasis of skin and nails History of asthma Personal history of other diseases of respiratory system History of hyperthyroidism Personal history of other endocrine, metabolic, and immunity disorders documented in this encounter Care Teams Supervisor Central Supply Relationship Specialty Start Date End Date Yvette Reyes APRN [address] [facility] [address] PCP - General Family Medicine 03/21/21 09/23/23 documented as of this encounter
--- OUTSIDE RECORDS SUMMARY | 2024-03-20 22:07 | XMS_ITS | Encounter Summary ---
Author Organization [facility] [place] [address] Care Team Providers Care Shipping Associate Name Role Phone Yvette Reyes APRN Primary Care Provider [phone] Reason for Visit * Reason Comments Medication Refill Encounter Details Date Type Department Care Team (Late st Contact Info) Description 10/07/2020 [place] [address] Michelle Watkins APRN [facility] [place] [address] Social History Tobacco Use Types Packs/Day Years [...] 3:20 PM EDT Office Visit Dermatology at [facility] [address] [place] [address] Dayanna Ramírez MD [facility] [place] [address] documented as of this encounter Visit Diagnoses Not on filedocumented in this encounter Care Teams Shipping Associate Relationship Specialty Start Date End Date Yvette Reyes APRN [address] [place] [address] PCP - General Family Medicine 03/21/21 09/23/23 documented as of this encounter
--- OUTSIDE RECORDS SUMMARY | 2024-03-20 22:07 | XMS_ITS | Encounter Summary ---
Author Organization [facility] Address [facility] [place] [address] Care Team Providers Care Speech And Language Assistant Name Role Phone Yvette Reyes APRN Primary Care Provider [phone] Encounter Details Date Type Department Care Team (Latest Contact Info) Description 04/24/2023 Travel Social History Tobacco Use Types Packs/Day [...] 3:20 PM EDT Office Visit Dermatology at [facility] [address] [place] [address] Dayanna Ramírez MD [facility] [address] [facility] [place] [address] documented as of this encounter Visit Diagnoses Not on filedocumented in this encounter Care Teams Speech And Language Assistant Relationship Specialty Start Date End Date Yvette Reyes APRN [address] [place] [address] PCP - General Family Medicine 03/21/21 09/23/23 documented as of this encounter
--- OUTSIDE RECORDS SUMMARY | 2024-03-20 22:07 | XMS_ITS | Encounter Summary ---
[place] [address] Care Team Providers Care Process Environmental Technician Name Role Phone Yvette Reyes APRN Primary Care Provider [phone] Reason for Referral * Diagnostic Test (Routine) - Closed Specialty Diagnoses / Procedures Referred By Contac t Referred To Contact Radiology Diagnoses Axillary lymphadenopathy Inguinal lymphadenopathy Procedures CT Neck Soft Tissue w Contrast (Generic) Mart Cordoba DNP [address] [place] [address] [facility] [place] [address] Referral ID Status Reason Start Date Expiration Date V isits Requested Visits Authorized [id number] Closed Specialty Service Requested 02/23/2023 08/26/2024 1 1 * Diagnostic Test (Routine) - Closed Specialty Diagnoses / Procedures Referred By Contac t Referred To Contact Radiology Diagnoses Axillary lymphadenopathy Inguinal lymphadenopathy Procedures CT Chest Abdomen Pelvis w Contrast (Generic) Mart Cordoba DNP [address] [place] [address] [facility] [place] [address] Referral ID Status Reason Start Date Expiration Date V isits Requested Visits Authorized [id number] Closed Specialty Service Requested 02/23/2023 08/26/2024 1 1 Reason for Visit * Diagnostic Test (Routine) - Closed Specialty Diagnoses / Procedures Referred By Diego ramos Referred To Contact Radiology Diagnoses Axillary lymphadenopathy Inguinal lymphadenopathy Procedures CT Chest Abdomen Pelvis w Contrast (Generic) Mart Cordoba DNP [address] [place] [address] [id number] [facility] [place] [address] Referral ID Status Reason Start Date Expiration Date V isits Requested Visits Authorized [id number] Closed Specialty Service Requested 02/23/2023 08/26/2024 1 1 Encounter Details Date Type Department Care Team (Late st Contact Info) Description 04/18/2023 9:50 AM EDT - 04/18/2023 11:59 PM EDT Hospital [place] [address] Mart Cordoba DNP [address] [place] [id number] Axillary lymphadenopathy; Inguinal lymphadenopathy Discharge Disposition: Home Social History Tobacco Use [...] 3:20 PM EDT Office Visit Dermatology at [address] [address] Dayanna Ramírez MD [facility] [address] [place] [address] documented as of this encounter Procedures Procedure Name Priority Date/Time Associated Diagnosis Comments CT CHEST ABDOMEN PELVIS W CONTRAST (GENERIC) Routine 04/18/2023 1:02 PM EDT Axillary lymphadenopathy Inguinal lymphadenopathy CT NECK SOFT TISSUE W CONTRAST Routine 04/18/2023 1:02 PM EDT Axillary lymphadenopathy Inguinal lymphadenopathy CREATININE Routine 04/18/2023 11:00 AM EDT documented in this encounter Results * CT Neck Soft Tissue w Contrast (Generic) (04/18/2023 1:02 PM EDT) Anatomical Region Laterality Modality Neck, Head Computed Tomogra phy Impressions 04/19/2023 10:46 AM EDT No primary mass lesion or cervical lymphadenopathy. Thank you for letting us participate in the care of this patient. ??If you are a health care provider and have any questions regarding this report, please contact the number below. ??For patients who have questions please contact the health anesthesiologist and critical care that requested your imaging first. ? Electronically signed by: Shahla Tejeda MD, [facility] ([phone]), at 04/19/2023 10:46 AM Narrative 04/19/2023 10:46 AM EDT EXAMINATION: CT NECK SOFT TISSUE W CONTRAST (GENERIC) CLINICAL HISTORY: Axillary Lymphadenopathy. Inguinal lymphadenopathy, right TECHNIQUE: CT neck performed after the intravenous administration of 110 mL of Omnipaque 350 contrast. COMPARISON: None FINDINGS: No primary mass lesion throughout the neck. Incidental benign-appearing 7 mm left tonsillar cyst. No cervical lymphadenopathy bilaterally. No adenopathy in the visualized portions of both axillary regions. No nodules in the visualized portions of the lungs. No focal osseous lesions to suggest metastatic disease. No abnormal enhancement in the visualized portions of the brain. Procedure Note Shahla Tejeda MD - 04/19/2023 EXAMINATION: CT NECK SOFT TISSUE W CONTRAST (GENERIC) CLINICAL HISTORY: Axillary Lymphadenopathy. Inguinal lymphadenopathy,right TECHNIQUE: CT neck performed after the intravenous administration of 110 mL ofOmnipaque 350 contrast. COMPARISON: None FINDINGS: No primary mass lesion throughout the neck. Incidental benign-appearing 7mm left tonsillar cyst. No cervical lymphadenopathy bilaterally. No adenopathy in the visualized portions of both axillary regions. No nodules in the visualized portions of the lungs. No focal osseouslesions to suggest metastatic disease. No abnormal enhancement in the visualizedportions of the brain. IMPRESSION No primary mass lesion or cervical lymphadenopathy. Thank you for letting us participate in the care of this patient. If youare a health care provider and have any questions regarding this report,please contact the number below. For patients who have questions please contactthe health anesthesiologist and critical care that requested your imaging first. Electronically signed by: Shahla Tejeda MD, [facility]([phone]), at 04/19/2023 10:46 AM Mart Cordoba [facility] IM CT ORDERABLES * CT Chest Abdomen Pelvis w Contrast (Generic) (04/18/2023 1:02 PM EDT) Anatomical Region Laterality Modality Abdomen, Pelvis Computed Tomogra phy Impressions 04/18/2023 3:26 PM EDT No lymphadenopathy. Thank you for letting us participate in the care of this patient. ??If you are a health care provider and have any questions regarding this report, please contact the number below. ??For patients who have questions please contact the health anesthesiologist and critical care that requested your imaging first. ? Narrative 04/18/2023 3:26 PM EDT EXAMINATION: CT CHEST ABDOMEN PELVIS W CONTRAST (GENERIC) CLINICAL HISTORY: Axillary Lymphadenopathy. Inguinal lymphadenopathy, right TECHNIQUE: Helical CT of the chest, abdomen, and pelvis following the intravenous administration of 110.0 ml of OMNIPAQUE 350.00 mg/ml. Oral contrast was administered. COMPARISON: None FINDINGS: Chest: Lungs and large airways: Punctate calcified granuloma in the lateral right upper lobe. No suspicious nodules or opacities. The central airways are clear. Pleura: No effusion. Heart/vasculature: Normal. Lymph nodes: No enlarged lymph nodes. Axillary lymph nodes are normal morphology and size. Mediastinum and emeli: Normal. Abdomen/pelvis: Liver: Normal size and attenuation without suspicious lesions. Focal steatosis adjacent to the falciform ligament. Bile ducts: Nondilated. Gallbladder: Probable 0.5 cm polyp of the superior wall. No dedicated follow-up imaging is necessary. No calcified stones or wall thickening. Pancreas: Normal attenuation without ductal dilatation. Spleen: Normal. Adrenals: Normal. Kidneys: Normal. Urinary Bladder: Normal. Vasculature: No abdominal aortic aneurysm. No portal or hepatic venous filling defects. Lymph Nodes: No enlarged lymph nodes. Normal inguinal nodes. Bowel: Enteric contrast has reached the transverse colon. No intestinal dilatation or wall thickening. Normal appendix. Peritoneum and retroperitoneum: No free fluid or loculated fluid collection. No pneumoperitoneum. No mesenteric inflammation. Abdominal wall: Normal. Reproductive organs: Normal contours of the uterus and adnexae. Osseous structures: No suspicious lesions. Procedure Note Ron Fry MD - 04/18/2023 EXAMINATION: CT CHEST ABDOMEN PELVIS W CONTRAST (GENERIC) CLINICAL HISTORY: Axillary Lymphadenopathy. Inguinal lymphadenopathy, right TECHNIQUE: Helical CT of the chest, abdomen, and pelvis following the intravenous administration of 110.0 ml of OMNIPAQUE 350.00 mg/ml. Oralcontrast was administered. COMPARISON: None FINDINGS: Chest: Lungs and large airways: Punctate calcified granuloma in the lateral rightupper lobe. No suspicious nodules or opacities. The central airways are clear. Pleura: No effusion. Heart/vasculature: Normal. Lymph nodes: No enlarged lymph nodes. Axillary lymph nodes are normalmorphology and size. Mediastinum and emeli: Normal. Abdomen/pelvis: Liver: Normal size and attenuation without suspicious lesions. Focalsteatosis adjacent to the falciform ligament. Bile ducts: Nondilated. Gallbladder: Probable 0.5 cm polyp of the superior wall. No dedicatedfollow-up imaging is necessary. No calcified stones or wall thickening. Pancreas: Normal attenuation without ductal dilatation. Spleen: Normal. Adrenals: Normal. Kidneys: Normal. Urinary Bladder: Normal. Vasculature: No abdominal aortic aneurysm. No portal or hepatic venousfilling defects. Lymph Nodes: No enlarged lymph nodes. Normal inguinal nodes. Bowel: Enteric contrast has reached the transverse colon. No intestinal dilatation or wall thickening. Normal appendix. Peritoneum and retroperitoneum: No free fluid or loculated fluidcollection. No pneumoperitoneum. No mesenteric inflammation. Abdominal wall: Normal. Reproductive organs: Normal contours of the uterus and adnexae. Osseous structures: No suspicious lesions. IMPRESSION No lymphadenopathy. Thank you for letting us participate in the care of this patient. If youare a health care provider and have any questions regarding this report,please contact the number below. For patients who have questions please contactthe health anesthesiologist and critical care that requested your imaging first. Mart Cordoba DNP IMG CT ORDERABLES * Creatinine (04/18/2023 11:00 AM EDT) Creatinine 0.92 0.70 - 1.20 mg/dL [facility] Est Glomerular Filtration Rate 74 >=60 mL/min/1. 73 m?? [facility] Comment: This patient's estimated GFR was calculated using the 2020 CKD-EPI equation. The estimated GFR can vary from the measured GFR by up to 30% in the absence of rapidly changing kidney function. Assessment of the estimated GFR is not appropriate when creatinine concentrations are rapidly changing. For clinical situations in which a more precise estimate of GFR is necessary, consider alternative methods of GFR estimation such as a 24-hour urine creatinine clearance. Assignment of CKD stage 1-5 for patients with an eGFR near the transition point between stages may be based on clinical assessment of muscle mass and symptoms in addition to eGFR. Blood 04/18/2023 11:0 0 AM EDT 04/18/2023 11:04 AM EDT Narrative Resulting Agency Comment Spec In Lab Mart Cordoba DNP CHEMISTRY ORDERABLE S [facility] [place] [address] documented in this encounter Visit Diagnoses Diagnosis Axillary lymphadenopathy Enlargement of lymph nodes Inguinal lymphadenopathy Enlargement of lymph nodes documented in this encounter Administered Medications Inactive Administered Medications - up to 3 most recent administrations Medication Order MAR Action Action Date Dose Rate Site iohexoL (Omnipaque) (350 mg/mL) solution 0-200 mL 0-200 mL, Intravenous, ONCE PRN, 1 dose, Starting on Sun04/18/23 at 1302, Until Sun04/18/23 at 1303, Per Protocol, Warning Vesicant/Irritant Medication , Radiology Contrast, Routine Given 04/18/2023 1:03 PM EDT 110 mLs iohexoL (Omnipaque) (350 mg/mL) solution 0-50 mL 0-50 mL, Oral, ONCE PRN, 1 dose, Starting on Sun04/18/23 at 1302, Until Sun04/18/23 at 1302, Per Protocol, Warning Vesicant/Irritant Medication , Radiology Contrast, Routine Given 04/18/2023 1:02 PM EDT 50 mLs documented in this encounter Care Teams Process Environmental Technician Relationship Specialty Start Date End Date Yvette Reyes, JOAN [address] [place] [address] PCP - General Family Medicine 03/21/21 09/23/23 documented as of this encounter
--- OUTSIDE RECORDS SUMMARY | 2024-03-20 22:07 | XMS_ITS | Encounter Summary ---
Author Organization [facility] [place] [address] Care Team Providers Care Gripper Machine Operator Name Role Phone Abby Guaman APRN Primary Care Provider [phone] Encounter Details Date Type Department Care Team (Latest Contact Info) Description 11/13/2023 Travel Social History Tobacco Use Types Packs/Day [...] PM EDT Office Visit Dermatology at [facility] [address] [place] [address] Dayanna Ramírez MD [facility] [place] [address] documented as of this encounter Visit Diagnoses Not on filedocumented in this encounter Care Teams Gripper Machine Operator Relationship Specialty Start Date End Date Abby Guaman [place] [address] PCP - General Family Medicine 09/24/23 documented as of this encounter
--- OUTSIDE RECORDS SUMMARY | 2024-03-20 22:07 | XMS_ITS | Encounter Summary ---
Author Organization [facility] [place] [address] Care Team Providers Care Hearing Aid Dispenser Name Role Phone ShelliYvette sabillon JOAN Primary Care Provider Reason for Visit * Reason Comments Dizziness Palpitations Encounter Details Date Type Department Care Team (Late st Contact Info) Description 12/31/2022 11:11 AM EDT - 12/31/2022 5:35 PM EDT [place] [address] Pilo Poon III, MD [facility] [place] [address] Palpitations Discharge Disposition: Home Social History Tobacco Use [...] Sign Reading Time Taken Comments Blood Pressure 130/76 12/31/2022 4:30 PM EDT Pulse 73 12/31/2022 4:30 PM EDT Temperature 36.3 ??C (97.3 ??F) 12/31/2022 11:03 AM E DT Respiratory Rate 16 12/31/2022 4:30 PM EDT Oxygen Saturation 94% 12/31/2022 4:30 PM EDT Inhaled Oxygen Concentration - - Weight 74.8 kg (165 lb) 12/31/2022 11:03 AM EDT Height - - Body Mass Index 31.18 11/01/2022 11:58 AM EDT documented in this encounter Discharge Instructions * Discharge Instructions* Franky Mckeon MD - 12/31/2022 4:24 PM EDT You were evaluated in the ED for dizziness and palpitations. We evaluated your heart function with blood tests and an ECG which showed that your heart is beating at a regular rate and rhythm and thatthere is no evidence of acute damage to your heart. We also evaluated your electrolyte, blood cell counts, and thyroid hormone levels which were also normal. We encourage you to establish care with aPCP for further monitoring and management of these symptoms. Please see medical care if you have recurrence of dizziness, chest pain, shortness of breath, or palpitations that are not resolving with rest. * Attachments The following attachments cannot be sent through Care Everywhere. * Palpitations ([place]) documented in this encounter Medications at Time [...] as of this encounter ED Notes * Pilo Poon III, MD - 12/31/2022 11:56 AM EDT ED Attending Note HPI: Yumiko Chang is a 52 y.o. female with history of asthma, fibromyalgia, GERD, juvenile arthritis, PTSD, Suzy Danlos syndrome, pneumonia, and hypothyroidism who presents to the Emergency Departmentwith a myriad of symptoms that began approximately 4 days ago after going on a walk. She has noticed pain in her right knee and right hip, palpitations and lightheadedness when she bends over at the waist, and occasional facial flushing. She notes that she experienced a similar brief period of timewith palpitations and lightheadedness when bending forward several years ago for which she underwent nondiagnostic work-up by her primary care physician. On review of systems, she has not experienced fevers, headaches, visual changes, neck pain, chest pain, difficulty breathing, abdominal pain, or nausea. She has not noticed a rash. Vitals: ED Triage Vitals BP: 141/86 [12/31/22 1104] Heart Rate: 77 [12/31/22 1103] Resp: 16 [12/31/22 1103] Temp: 36.3 ??C (97.3 ??F) [12/31/22 1103] Temp src: Temporal [12/31/22 1103] SpO2: 97 % [12/31/22 1103] O2 Device: RA [12/31/22 110] O2 Flow Rate (L/min): n/a Physical Exam General: Jovial and conversive Eyes: anicteric Neurologic: fully oriented Psychiatric: no tangentiality, no apparent delusions ED Course: I have reviewed labs and imaging, images and available reports, and they are significant for: XR Chest PA & Lateral (Generic) Final Result No acute cardiac pulmonary process. Preliminary report signed by: Vandana Dahl at 12/31/2022 12:58 PM I have personally reviewed the image(s) and the resident's interpretation and agree with the findings, Eloisa Bangura MD at 12/31/2022 1:37 PM Thank you for letting us participate in the care of this patient. If you are a health care provider and have any questions regarding this report, please contact the number below. For patients who have questions please contact the health rn intensive care unit that requested your imaging first. Electronically signed by: Eloisa Bangura MD, [facility] ([phone]), at 12/31/2022 1:37 PM Assessment and Plan: 52 y.o. female with a myriad of symptoms including palpitations and dizziness when bending at the waist that began several days ago after a long walk. At my encounter, she was not febrile, tachycardic, nor tachypneic. She was smiling, jovial, extremely well in appearance. Exam was unremarkable. Studies were nondiagnostic. At this point, it does not appear that she is experiencing an acute cardiopulmonary, vascular, neurologic, or infectious process that requires further studies and inpatient hospitalization. She should do well as an outpatient with precautions were provided to return to the emergency department should the patient develop any progression of symptoms or new symptoms that indicates worsening of disease or suggests an alternative diagnosis warranting further evaluation and diagnostics. Did this case involve critical care? No The visit findings, diagnosis, and care plan were discussed with the patient. The diagnosis and care plans discussions were outlined in the discharge instructions. The patient expressed understanding of the details of the visit, the return precautions and that she should return to the ER at any time for worsening symptoms, new symptoms, or other concerns. she agrees with thefollow- up plan. Pilo Poon III, MD 12/31/22 1604 * Franky Mckeon MD - 12/31/2022 11:34 AM EDT ED Resident Note HPI: Yumiko Chang is a 52 y.o. female history of asthma, GERD, PTSD, fibromyalgia, juvenile arthritis,Suzy-Danlos syndrome, pneumonia, hypothyroidism, prior laparoscopy, LEEP procedure, tubal ligation who presents to the Emergency Department w/ dizziness and palpitations. Hx was obtained from the patient. Pt says she has been feeling different mostly starting since last Sunday when she and her son did a 2km walk. Towards the end of the walk when she was going up a hill she began to feel lightheaded, flushed, and sweaty like she was going to pass out. She sat down on a bench and the feeling passed. Since that episode she has been having multiple episodes of dizziness, nausea, flushing, and palpit ations. These occur most frequently after bending over however it also happens at random and she feels it's been increasing in frequency over the past few days. She says that on the whole drive over she was feeling like she was going to pass out and was nauseous. She also endorses R sided knee painand R sided hip pain that began the day after the walk. The knee pain has resolved but the hip painhas persisted. She also reports L sided chest pain that occurs at rest, she notes that she has had difficulty sleeping because if she lays on her L side she has the chest pain and if she switches to the R side she'll have the hip pain. The chest pain is not exertional and is not associated w/ the palpitations. She does not have associated dyspnea. Has not had any vomiting, diarrhea. She notes that she has gained ~40-50 lbs in the last ~5 years. She went through menopause in 2014 and has not hadany abnormal vaginal bleeding. ROS as per HPI Vitals: ED Triage Vitals BP: 141/86 [12/31/22 1104] Heart Rate: 77 [12/31/22 1103] Resp: 16 [12/31/22 1103] Temp: 36.3 ??C (97.3 ??F) [12/31/22 1103] Temp src: Temporal [12/31/22 1103] SpO2: 97 % [12/31/22 1103] O2 Device: RA [12/31/22 110] O2 Flow Rate (L/min): n/a Physical Exam Constitutional: Appearance: Normal appearance. HENT: Head: Normocephalic and atraumatic. Neurological: Mental Status: She is alert. ED Course: I have reviewed labs and imaging, images and available reports, and they are significant for: - EKG nsr, normal intervals - CBC wnl - CMP wnl - Trops negative - TSH normal XR Chest PA & Lateral (Generic) (Results Pending) Procedures Assessment and Plan: Yumiko Chang is a 52 y.o. female history of asthma, GERD, PTSD, fibromyalgia, juvenile arthritis,Suzy-Danlos syndrome, pneumonia, hypothyroidism, prior laparoscopy, LEEP procedure, tubal ligation who presents to the Emergency Department w/ dizziness and palpitations. Her symptoms of positionaldizziness, nausea, palpitations, feeling of flushing/diaphoresis have been documented in the past and she does note that this has happened previously. The symptoms themselves sound like vasovagal syncope though she has never passed out, the also could be related to orthostatic hypotension given thepositional nature. Her chest pain does not sound cardiac as it is not associated w/ exertion and if anything she has quite good exercise tolerance at baseline. The fact that her chest pain is exacerbated by sleeping on L side also points to MSK sounce. It is very reassuring that her troponins are negative and her EKG is normal. It is possible that her palpitations could be due to paroxysmal arrhythmia but this also seems unlikely to be associated so closely with positional changes. She notes that she has a history of hyper and hypothyroidism which could be contributing to many of her symptomsso it seems reasonable to check TSH. Other labs including CBC and BMP are reassuring. She is working on getting established w/ new PCP which will be helpful in monitoring her symptoms longitudinally as most of these are recurring. Reassured her that her labs and EKG are all very reassuring and thatno further work up is indicated. Encouraged her to make sure she is staying well hydrated and eating enough and to monitor when her episodes of dizziness and palpitations occur to monitor for potential triggers. Encouraged her to seek medical evaluation if she develops symptoms of dizziness, palpitations, chest pain, or shortness of breath that do not resolve with rest. The visit findings, diagnosis, and care plan were discussed with the patient. The diagnosis and care plans discussions were outlined in the discharge instructions. The patient expressed understanding of the details of the visit, the return precautions and that she should return to the ER at any time for worsening symptoms, new symptoms, or other concerns. she agrees with thefollow- up plan. Franky Mckeon MD Resident 12/31/22 [id number] documented in this encounter Plan of Treatment Upcoming Encounters Date Type Department Care Team (Late st Contact Info) Description 04/07/2024 3:20 PM EDT Office Visit Dermatology at [facility] [address] [place] [address] [address] Ramírez MD [facility] [address] [place] [address] documented as of this encounter Procedures Procedure Name Priority Date/Time Associated Diagnosis Comments TROPONIN - SERIES STAT 12/31/2022 2:2 5 PM EDT TSH CASCADE STAT 12/31/2022 2:25 PM EDT TROPONIN - SERIES STAT 12/31/2022 12: 40 PM EDT XR CHEST PA AND LATERAL STAT 12/31/2022 12:14 PM EDT TROPONIN - SERIES STAT 12/31/2022 11: 40 AM EDT HEMOGRAM STAT 12/31/2022 11:40 AM EDT DIFFERENTIAL, AUTOMATED STAT 12/31/2022 11:40 AM EDT CBC (WITH DIFF) STAT 12/31/2022 11:40 AM EDT BASIC METABOLIC PANEL STAT 12/31/2022 11:40 AM EDT EKG 12-LEAD STAT 12/31/2022 11:03 AM EDT documented in this encounter Results * TSH Cuervo (12/31/2022 2:25 PM EDT) Thyroid Stimulating Hormone 1.84 0.27 - 4.20 mcIU/mL [facility] Comment: Reference Interval (mcIU/mL): Females: ??First Trimester: 0.23-3.88 ??Second Trimester: 0.22-3.90 ??Third Trimester: 0.44-4.66 Blood 12/31/2022 2:25 PM EDT 12/31/2022 2:36 PM EDT Narrative Resulting Agency Comment Spec In Lab Pilo Poon III, MD CHEMISTRY ORDERABL ES [facility] [place] [address] * Troponin (12/31/2022 2:25 PM EDT) Troponin-T, High Sensitivity 7 <=14 ng/L [facility] Comment: This patient's troponin T concentration was determined using the Doug 5th Generation troponin T assay. The 99th percentile for Troponin T for this test is 14 ng/L for females, and 22 ng/L for males. According to the fourth universal definition of myocardial infarction, the term acute myocardial infarction should be used when there is acute myocardial injury with clinical evidence of acute myocardial ischemia and with detection of a rise and/or fall of cardiac troponin values with at least one value above the 99th percentile and at least one of the following: - Symptoms of myocardial ischemia; - New ischemic ECG changes; - Development of pathological Q waves; - Imaging evidence of new loss of viable myocardium or new regional wall motion abnormality in a pattern consistent with an ischemic etiology; - Identification of a coronary thrombus by angiography or autopsy (not for type 2 or 3 MIs) Serial measurement of troponin and the change in troponin concentration over time (delta) is crucial for the diagnosis of acute myocardial infarction. Guidance on the interpretation of the new 5th Generation Troponin T values and the delta troponin value can be found in the [facility] Test Catalog Troponin - [facility] Test Catalog Reference: Fourth [place] Definition of Myocardial Infarction. Journal of the [place] College [employer] 2018;72:8693-2517 Blood 12/31/2022 2:25 PM EDT 12/31/2022 2:36 PM EDT Narrative Resulting Agency Comment Spec In Lab Pilo Poon III, MD CHEMISTRY ORDERABL ES [facility] [place] [address] * Troponin (12/31/2022 12:40 PM EDT) Troponin-T, High Sensitivity <6 <=14 ng/L [facility] Comment: This patient's troponin T concentration was determined using the Doug 5th Generation troponin T assay. The 99th percentile for Troponin T for this test is 14 ng/L for females, and 22 ng/L for males. According to the fourth universal definition of myocardial infarction, the term acute myocardial infarction should be used when there is acute myocardial injury with clinical evidence of acute myocardial ischemia and with detection of a rise and/or fall of cardiac troponin values with at least one value above the 99th percentile and at least one of the following: - Symptoms of myocardial ischemia; - New ischemic ECG changes; - Development of pathological Q waves; - Imaging evidence of new loss of viable myocardium or new regional wall motion abnormality in a pattern consistent with an ischemic etiology; - Identification of a coronary thrombus by angiography or autopsy (not for type 2 or 3 MIs) Serial measurement of troponin and the change in troponin concentration over time (delta) is crucial for the diagnosis of acute myocardial infarction. Guidance on the interpretation of the new 5th Generation Troponin T values and the delta troponin value can be found in the [facility] Test Catalog Troponin - [facility] Test Catalog Reference: Fourth [place] Definition of Myocardial Infarction. Journal of the [place] College [employer] 2018;72:0630-2914 Blood 12/31/2022 12:4 0 PM EDT 12/31/2022 12:55 PM EDT Narrative Resulting Agency Comment Spec In Lab Pilo Poon III, [place] [address] * XR Chest PA & Lateral (Generic) (12/31/2022 12:14 PM EDT) Anatomical Region Laterality Modality Chest N/A Digital Radiogra phy Impressions 12/31/2022 1:37 PM EDT No acute cardiac pulmonary process. Preliminary report signed by: Vandana Dahl at 12/31/2022 12:58 PM I have personally reviewed the image(s) and the resident's interpretation and agree with the findings, Eloisa Bangura MD at 12/31/2022 1:37 PM Thank you for letting us participate in the care of this patient. ??If you are a health care provider and have any questions regarding this report, please contact the number below. ??For patients who have questions please contact the health rn intensive care unit that requested your imaging first. ? Electronically signed by: Eloisa Bangura MD, [facility] ([phone]), at 12/31/2022 1:37 PM Narrative 12/31/2022 1:37 PM EDT EXAMINATION: XR CHEST PA AND LATERAL (GENERIC) CLINICAL HISTORY: palpitations TECHNIQUE: PA and lateral views of the chest COMPARISON: 04/16/2018 chest radiograph FINDINGS: Normal cardiomediastinal silhouette. No mass, focal consolidation, pleural effusion, or pneumothorax. No acute osseous abnormality. Visualized upper abdomen is unremarkable. Procedure Note Eloisa Bangura MD - 12/31/2022 EXAMINATION: XR CHEST PA AND LATERAL (GENERIC) CLINICAL HISTORY: palpitations TECHNIQUE: PA and lateral views of the chest COMPARISON: 04/16/2018 chest radiograph FINDINGS: Normal cardiomediastinal silhouette. No mass, focal consolidation,pleural effusion, or pneumothorax. No acute osseous abnormality. Visualizedupper abdomen is unremarkable. IMPRESSION No acute cardiac pulmonary process. Preliminary report signed by: Vandana Dahl at 12/31/2022 12:58PM I have personally reviewed the image(s) and the resident's interpretationand agree with the findings, Eloisa Bangura MD at 12/31/2022 1:37 PM Thank you for letting us participate in the care of this patient. If youare a health care provider and have any questions regarding this report,please contact the number below. For patients who have questions please contactthe health rn intensive care unit that requested your imaging first. Electronically signed by: Eloisa Bangura MD, [facility]([phone]), at 12/31/2022 1:37 PM Pilo Poon III, MD IMG DX ORDERABLES * Differential, Automated (12/31/2022 11:40 AM EDT) Neutrophil % 56.8 % [facility] Neutrophil Absolute 4.83 1.70 - 6.10 x10(3)/[facility] Lymph % 33.4 % [facility] Lymphocytes Abs 2.8 0.9 - 3.2 x10(3)/[facility] Monocyte % 6.7 % [facility] Monocyte Abs 0.6 0.3 - 0.9 x10(3)/[facility] Eos % 1.9 % [facility] Eosinophils Abs 0.2 0.0 - 0.4 x10(3)/[facility] Basophil % 0.8 % [facility] Baso Absolute 0.1 0.0 - 0.1 x10(3)/[facility] Immature Gran % 0.40 % [facility] Comment: Immature granulocytes(IG's)percentage and absolute count will include metamyelocytes, myelocytes, and promyelocytes. Blood smears from CBCs yielding IG's will be scanned manually for concordance. If this scan disagrees with the automated IG or if promyelocytes are noted, a manual differential will be performed. Immature Gran Absolute 0.03 0.00 - 0.04 x10(3)/[facility] Blood 12/31/2022 11:4 0 AM EDT 12/31/2022 11:46 AM EDT Narrative Resulting Agency Comment Spec In Lab Ron Berrios MD HEMATOLOGY ORDERAB LES [facility] [place] [address] * (ABNORMAL) Hemogram (12/31/2022 11:40 AM EDT) White Blood Cell 8.5 4.0 - 9.5 x10(3)/mc L [facility] Red Blood Cell 5.24(H) 4.00 - 5.21 x10(6)/mc L [facility] Hemoglobin 13.8 11.7 - 15.5 g/dL [facility] Hematocrit 41.6 35.7 - 45.8 % [facility] Mean Cell Volume 79.4(L) 82.6 - 94.4 fL [facility] Mean Cell Hemoglobin 26.3(L) 27.1 - 32.0 pg [facility] Mean Cell Hemoglobin Concentration 33.2 31.7 - 35.0 g/dL [facility] Platelet 278 145 - 357 x10(3)/mc L [facility] RDW Standard Deviation 35.9(L) 37.0 - 46.0 fL [facility] RDW coefficient of variation 12.7 11.5 - 14.1 % [facility] Mean Platelet Volume 9.2 7.6 - 12.9 fL [facility] NRBC% auto 0.0 % [facility] NRBC Absolute 0.000 0.000 - 0.000 x10(3)/mc L [facility] Blood 12/31/2022 11:4 0 AM EDT 12/31/2022 11:46 AM EDT Narrative Resulting Agency Comment Spec In Lab Ron Berrios MD HEMATOLOGY ORDERAB LES [facility] [place] [address] * Troponin (12/31/2022 11:40 AM EDT) Troponin-T, High Sensitivity <6 <=14 ng/L [facility] Comment: This patient's troponin T concentration was determined using the Doug 5th Generation troponin T assay. The 99th percentile for Troponin T for this test is 14 ng/L for females, and 22 ng/L for males. According to the fourth universal definition of myocardial infarction, the term acute myocardial infarction should be used when there is acute myocardial injury with clinical evidence of acute myocardial ischemia and with detection of a rise and/or fall of cardiac troponin values with at least one value above the 99th percentile and at least one of the following: - Symptoms of myocardial ischemia; - New ischemic ECG changes; - Development of pathological Q waves; - Imaging evidence of new loss of viable myocardium or new regional wall motion abnormality in a pattern consistent with an ischemic etiology; - Identification of a coronary thrombus by angiography or autopsy (not for type 2 or 3 MIs) Serial measurement of troponin and the change in troponin concentration over time (delta) is crucial for the diagnosis of acute myocardial infarction. Guidance on the interpretation of the new 5th Generation Troponin T values and the delta troponin value can be found in the [facility] Test Catalog Troponin - [facility] Test Catalog Reference: Fourth [place] Definition of Myocardial Infarction. Journal of the [place] [employer] 2018;72:[id number] Blood 12/31/2022 11:4 0 AM EDT 12/31/2022 11:46 AM EDT Narrative Resulting Agency Comment Spec In Lab Pilo Poon III, MD CHEMISTRY ORDERABL ES [facility] [place] [address] * Basic Metabolic Panel (non-fasting) (12/31/2022 11:40 AM EDT) Glucose 90 65 - 199 mg/dL [facility] Comment:Diabetes: >=200 mg/d L plus symptoms Blood Urea Nitrogen 10 8 - 18 mg/dL [facility] Creatinine 0.86 0.70 - 1.20 mg/dL [facility] Sodium 144 135 - 145 mmol/L [facility] Potassium 3.8 3.5 - 5.0 mmol/L [facility] Comment: Please note: ??Patients with WBC >100,000 may have falsely elevated Potassium levels. ??For accurate Potassium quantification in these patients send serum separator tube (gold top) for subsequent determinations. ??Contact the Clinical Chemistry Laboratory if there are any questions. Chloride 105 98 - 107 mmol/L [facility] Carbon Dioxide 25 22 - 31 mmol/L [facility] Anion Gap 14 5 - 15 mmol/L [facility] Calcium 10.2 8.5 - 10.5 mg/dL [facility] Est Glomerular Filtration Rate 80 >=60 mL/min/1. 73 m?? [facility] Comment: This patient's estimated GFR was [...] and symptoms in addition to eGFR. Blood 12/31/2022 11:4 0 AM EDT 12/31/2022 11:46 AM EDT Narrative Resulting Agency Comment Spec In Lab Pilo Poon III, MD CHEMISTRY ORDERABL ES Performing Organization Address [facility] Co de Phone Number [facility] [place] [address] * EKG 12 Lead (12/31/2022 11:03 AM EDT) Ventricular rate 71 BPM MUSE SYSTEM Atrial Rate 71 BPM MUSE SYSTEM P-R Interval 156 ms MUSE SYSTEM QRS Duration 78 ms MUSE SYSTEM Q-T Interval 396 ms MUSE SYSTEM QTC Calculated (Bezet) 430 ms MUSE SYSTEM Calculated P [place] 40 degrees MUSE SYSTEM Calculated R [place] 68 degrees MUSE SYSTEM Calculated T [place] 60 degrees MUSE SYSTEM INTERPRETATION Normal sinus rhythm Normal ECG When compared with ECG of 19-MAY-2020 14:37, No significant change was found Confirmed by MD Flavio, Eliazar ([id number]) on 01/01/2023 10:53:34 AM MUSE SYSTEM 12/31/2022 11:0 3 AM EDT 01/01/2023 10:53 AM EDT Pilo Poon III, MD ECG ORDERABLES Performing Organization Address [facility] Co de Phone Number MUSE SYSTEM documented in this encounter Visit Diagnoses Diagnosis Palpitations documented in this encounter Care Teams Hearing Aid Dispenser Relationship Specialty Start Date End Date Yvette Reyes, [employer] [address] [place] [address] PCP - General Family Medicine 03/21/21 09/23/23 documented as of this encounter
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
--- OUTSIDE RECORDS SUMMARY | 2024-03-20 22:07 | XMS_ITS | Encounter Summary ---
Author Organization [facility] Address [facility] [place] [address] Care Team Providers Care Title Curator Name Role Phone Yvette Reyes APRN Primary Care Provider [phone] Encounter Details Date Type Department Care Team (Latest Contact Info) Description 06/08/2023 Travel Social History Tobacco Use Types Packs/Day [...] EDT Office Visit Dermatology at [facility] [address] [place] [address] Dayanna Ramírez MD [facility] [place] [address] documented as of this encounter Visit Diagnoses Not on filedocumented in this encounter Care Teams Title Curator Relationship Specialty Start Date End Date Yvette Reyes APRN [address] [place] [address] PCP - General Family Medicine 03/21/21 09/23/23 documented as of this encounter
--- OUTSIDE RECORDS SUMMARY | 2024-03-20 22:07 | XMS_ITS | Encounter Summary ---
Author Organization [facility] Address [facility] [place] [address] Care Team Providers Care Mid Level Business Analyst Name Role Phone Billie Ly MD Primary Care Provider [phone] Reason for Referral * E-Consultation (Routine) - Specialty Diagnoses / Procedures Referred By Contac t Referred To Contact Gynecology Diagnoses Abnormal cervical Papanicolaou smear, unspecified abnormal pap finding Procedures eConsult to Gynecology (Primary Care Use Only) Billie Ly MD [facility] [place] [address] Referral ID Status Reason Start Date Expiration Date V isits Requested Visits Authorized [id number] 03/30/2020 03/30/2021 1 1 Encounter Details Date Type Department Care Team (Late st Contact Info) Description 03/30/2020 Orders Only Family Medicine at [facility] [address] [place] [address] Billie Ly MD [facility] [place] [address] Abnormal cervical Papanicolaou smear, unspecified abnormal pap [...] Office Visit Dermatology at [facility] [address] [place] [address] Dayanna Ramírez MD [facility] [address] [place] [address] documented as of this encounter Visit Diagnoses Diagnosis Abnormal cervical Papanicolaou smear, unspecified abnormal pap finding documented in this encounter Care Teams Mid Level Business Analyst Relationship Specialty Start Date End Date Billie Ly MD [facility] [address] [place] [address] PCP - General Family Medicine 02/20/19 03/20/21 documented as of this encounter
--- OUTSIDE RECORDS SUMMARY | 2024-03-20 22:07 | XMS_ITS | Encounter Summary ---
Author Organization [facility] Address [facility] [place] [address] Care Team Providers Care Regional Account Director Name Role Phone Yvette Reyes APRN Primary Care Provider [phone] Encounter Details Date Type Department Care Team (Latest Contact Info) Description 04/05/2023 Travel Social History Tobacco Use Types Packs/Day [...] 3:20 PM EDT Office Visit Dermatology at [facility] [address] [place] [address] Dayanna Ramírez MD [facility] [address] [place] [address] documented as of this encounter Visit Diagnoses Not on filedocumented in this encounter Care Teams Regional Account Director Relationship Specialty Start Date End Date Yvette Reyes APRN [address] [place] [address] PCP - General Family Medicine 03/21/21 09/23/23 documented as of this encounter
--- OUTSIDE RECORDS SUMMARY | 2024-03-20 22:07 | XMS_ITS | Encounter Summary ---
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 Endocervical Component Not Present [facility] AP Specimen 03/24/2020 10:4 0 AM EDT 03/29/2020 5:45 PM EDT Billie Ly MD PATHOLOGY/CYTOLOGY O RDERABLES Performing Organization Address [facility] Co de Phone Number [facility] [place] [address] * Commercial Production Editor Cytology Final Report (03/24/2020 10:40 AM EDT) Commercial Production Editor Cytology Final Report [id number] ? Location: [facility] The signing pathologist has (i) examined the relevant preparation(s) for the specimen(s) and (ii) rendered or confirmed the diagnosis(es). . ? Commercial Production Editor Final DIAGNOSIS Normal Negative for intraepithelial lesion or malignancy (NILM). For consensus guidelines for the management of cervical cancer screening test results, please see: ?? [email or web address] rg . Electronically signed by: ??Joao MANZANO(ASCP), Carri E Verified: ??03/29/2020 ?Pbx Technician Performed at: ??-[facility] Dept. of Pathology, [place], [place] DISCUSSION Atrophic pattern sample. HPV RESULTS HPV16 (Result) ?Negative HPV18 (Result) ?Negative HPVOHR (Result) ? Negative HPV (Interpretation) ?See Below HPV (Interpretation) Text: NEGATIVE for high-risk HPV *. *Testing negative for high risk HPV means that the specimen is negative for the following 14 types tested: types 16, 18, 31, 33, 35, 39, 45, 51, 52, 56, 58, 59, 66, and 68. The test is not intended to detect low risk HPV types. [employer] hebert HPV test Specimen: HPV Testing - Cytology Liquid Based Prep The Doug hebert ? HPV test was validated, performed and results reported through the Laboratory for Clinical Genomics and Advanced Technology (CGAT) at [facility]. ? - Dre Box, PhD, [facility], Director-[facility] STATEMENT OF ADEQUACY Specimen submitted is satisfactory for evaluation. No endocervical component present. Note: ??Initial cross-sectional studies suggested that TAYLOR cells were more commonly identified when an endocervical component was present, however subsequent longitudinal studies fail to show that women lacking an endocervical component in a Pap smear are at increased risk for TAYLOR. CLINICAL INFORMATION HPV Option: ?Concurrent HPV and Pap CT/NG Option: ?No Preparation: ? Liquid based Pap Specimen Source: ? Cervical/Endocervi meka LMP: ? Postmenopausal Hysterectomy: ?No : ?No : ?No I.U.D.: ?No Pelvic Radiation: ?No Hist Abnl Pap/Biopsy: ?Yes, history of previous abnormal Pap Prior INSURANCE CASE MANAGER Therapy: ? No . CLINICAL INFORMATION Hist of HPV Vaccine: ? No ICD Diagnosis: ? Z12.4 Encounter for screening for malignant neoplasm of cervix Clinical Data, Significant Therapy and Clinical Impression ?? : ?_ This Pap Test has been evaluated with the assistance of the Phase Holographic ImagingPrep Pap Test Imaging System. Note: The Pap test is a screening test for cervical cancer with an inherent false-negative rate dependent upon several variables. For further information please contact the [facility]. Reference: Jacquelyn VERDUGO. Senior Shipping Clerk of Pap Smear Results. In: Felipe BS, Bob HH, ed. The Pap Smear. [place]: Suraj, 2002: 71-77. [facility] 03/24/2020 10:4 0 AM EDT Billie Ly MD PATHOLOGY/CYTOLOGY O CIRO Performing Organization Address [facility] de Phone Number [facility] [place] [address] * HPV (03/24/2020 10:40 AM EDT) HPV16 NEGATIVE NEGATIVE [facility] HPV 18 NEGATIVE NEGATIVE [facility] HPV Other HR NEGATIVE NEGATIVE [facility] HPV Interpretation See Comment [facility] Comment: NEGATIVE for high-risk HPV *. * Testing negative for high risk HPV means that the specimen is negative for the following 14 types tested: ??types 16, 18, 31, 33, 35, 39, 45, 51, 52, 56, 58, 59, 66, and 68. ??The test is not intended to detect low risk HPV types. Doug Hebert HPV test Specimen: HPV Testing - Cytology Liquid Based Prep Cervical swab (specimen) 03/24/2020 10:40 AM EDT 03/24/2020 8:39 PM EDT Narrative Resulting Agency Comment Spec In Lab Billie Ly MD PATHOLOGY/CYTOLOGY O CIRO [facility] [place] [address] * Cytopathology Gynecological (03/24/2020 10:12 AM EDT) AP Specimen 03/24/2020 10:1 2 AM EDT 03/24/2020 7:10 PM EDT Narrative [facility] - 03/24/2020 7:11 PM EDT Specimen requisition ordered. ??Separate Pathology report to follow Resulting Agency Comment Spec In Lab Billie Ly MD PATHOLOGY/CYTOLOGY O RDERABLES [facility] [place] [address] documented in this encounter Visit Diagnoses Diagnosis Screening for malignant neoplasm of cervix Screening for malignant neoplasm of the cervix Encounter for screening mammogram for malignant neoplasm of breast Other screening mammogram Thyroid mass with hyperthyroidism Unspecified disorder of thyroid Fatigue, unspecified type Preventative health care Routine general medical examination at a health care facility Skin lesion Unspecified disorder of skin and subcutaneous tissue Hearing loss, unspecified hearing loss type, unspecified laterality Vision changes Unspecified visual disturbance documented in this encounter Care Teams Brigadier Relationship Specialty Start Date End Date Billie Ly MD [facility] [address] [place] [address] PCP - General Family Medicine 02/20/19 03/20/21 documented as of this encounter
--- OUTSIDE RECORDS SUMMARY | 2024-03-20 22:07 | XMS_ITS | Encounter Summary ---
Author Organization [facility] Address [facility] [place] [address] Care Team Providers Care Hydraulic Repairer Name Role Phone Billie Ly MD Primary Care Provider [phone] Encounter Details Date Type Department Care Team (Late st Contact Info) Description 06/17/2020 Telephone Audiology at [address] [id number] Lili Rodríguez Social History Tobacco Use Types Packs/Day Years [...] 3:20 PM EDT Office Visit Dermatology at [facility] [address] [place] [address] Dayanna Ramírez MD [facility] [address] [address] documented as of this encounter Visit Diagnoses Not on filedocumented in this encounter Care Teams Hydraulic Repairer Relationship Specialty Start Date End Date Billie yL MD [facility] [address] [place] [address] PCP - General Family Medicine 02/20/19 03/20/21 documented as of this encounter
--- OUTSIDE RECORDS SUMMARY | 2024-03-20 22:07 | XMS_ITS | Encounter Summary ---
Author Organization [facility] Address [facility] [place] [address] Care Team Providers Care Hot Saw Operator Name Role Phone Billie Ly MD Primary Care Provider [phone] Reason for Visit * Reason Comments Skin Lesion * Consultation (Routine) - Closed Specialty Diagnoses / Procedures Referred By Contac t Referred To Contact Dermatology Diagnoses Skin lesion Billie Ly MD [facility] [address] [place] [address] [facility] [address] [place] [address] Referral ID Status Reason Start Date Expiration Date V isits Requested Visits Authorized [id number] Closed Consult, Test & Treat 03/24/2020 03/24/2021 1 1 Encounter Details Date Type Department Care Team (Late st Contact Info) Description 04/16/2020 1:30 PM EDT Office Visit Dermatology at [facility] [address] [place] [address] Valorie Alonzo MD [facility] [address] [facility] [place] [id number] Lymphangioma Social History Tobacco Use Types Packs/Day Years [...] as of this encounter Progress Notes * Valorie Alonzo - 04/16/2020 1:30 PM EDT Images from the original note were not included. DERMATOLOGY - NEW PATIENT NOTE Date of service: 04/16/2020 Yumiko De Leon : 1970, 50 y.o. Chief Complaint: Chief Complaint Patient presents with ??? Skin Lesion HPI: Yumiko De Leon is a 50 y.o. female referred by Billie Ly with the following concerns: A lesion on her left buttock present since July 2019, around the time that she was bedridden with pneumonia for 3 weeks. It was at its worst in July 2019. It was itchy and changed from a bite to a blister to a lesion. It has changed in color from black, blue, purple, and most recently black. When it was black, it was raised. She thought it was possibly a bug bite or boil, then maybe a mole. She reports it has been itchy, crusting, burning, and oozing. It was at its worst in July. She tried over the counter poison vasquez cream for the itch and this did help. The area has never fully resolved. Relevant Skin History: - Okay to leave detailed message with results? 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 naproxen (NAPROSYN) 500 mg Tablet Take 1 tablet by mouth 2 times daily (with meals). 60 tablet 3 ??? cetirizine (ZYRTEC) 10 mg Tablet Take 1 tablet by mouth daily. 90 tablet 3 ??? levalbuterol (XOPENEX HFA) 45 mcg/actuation HFA Aerosol Inhaler Inhale 1-2 puffs into the lungsevery 4 hours as needed. 1 Inhaler 3 No current facility-administered medications for this visit. Allergies: Allergies Allergen Reactions ??? Latex Rash BURNING/ THROAT CLOSES ??? Azithromycin Anaphylaxis ??? Penicillins Anaphylaxis ??? Epinephrine Other (See Comments) fast heart rate ??? Influenza Virus Vaccines Declines based on prior fevers, fatigue. Review of Systems: - General: Feels well - Skin: No other skin concerns. Examination: - Constitutional: Patient was alert, well-appearing and in no noticeable distress. - Focused Exam: Skin examination of the buttocks was normal with the exception of the findings listed below - Natasha Eric was present and on standby during my examination. Diagnosis/Skin findings/Assessment/Plan: 1. 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 They typically appear as an erythematous to purpuric papule which is filled with blood-tinged lymphaticfluid. Scraping of the papule shows characteristic weeping of clear to serosanguinous lymphatic fluid. - Favor lymphangioma given prolonged time course, however, HSV is also a possibility - Discussed biopsy vs. Monitoring. We discussed that in it's current state there may not be a definitive diagnosis. Joint decision to monitor - Continue to monitor. If it recurs, patient was instructed to take photos and return to clinic forevaluation and punch biopsy. RTC: 6 months for lymphangioma follow up Note initiated by Lita Preciado LPN. We, Lita Preciado LPN and Natasha Eric, have performed the documentation for this encounterin the presence of and acting as a scribe for Valorie Alonzo MD. I performed the services which were documented by the scribe, and I agree with the accuracy of the documentation in this encounter. Valorie Alonzo MD Reviewed and signed by Valorie Alonzo MD Resident in Dermatology [facility] Patient seen in conjunction with staff toe former: Carolina Beltrán MD Department of Dermatology [facility] * Carolina Beltrán MD - 04/16/2020 1:30 PM EDT I directly supervised Dr. Alonzo during this office visit. Dr. Alonzo presented the history and physical exam to me. I then saw and examined this patient with Dr. Alonzo . We reviewed the history andpertinent details and I confirmed the physical findings. I agree with the details of the history and physical exam as documented in Dr. Alonzos note. CAROLINA BELTRÁN MD Staff Physician documented in this encounter Miscellaneous Notes * Addendum Note - Carolina Beltrán MD - 04/16/2020 1:30 PM EDTAddended by: CAROLINA BELTRÁN on: 04/23/2020 10:25 AM Modules accepted: Level of Service documented in this encounter Plan of Treatment Upcoming Encounters Date Type Department Care Team (Late st Contact Info) Description 04/07/2024 3:20 PM EDT Office Visit Dermatology at [address] [address] Dayanna Ramírez MD [facility] [address] [address] Scheduled Referrals Name Type Priority Associated Diagnoses Order Schedule Referral to Dermatology Outpatient Referral Routine Skin lesion Ordered: 03/24/2020 documented as of this encounter Visit Diagnoses Diagnosis Lymphangioma Lymphangioma, any site documented in this encounter Care Teams Hot Saw Operator Relationship Specialty Start Date End Date Billie Ly MD [facility] [address] [place] [address] PCP - General Family Medicine 02/20/19 03/20/21 documented as of this encounter
--- OUTSIDE RECORDS SUMMARY | 2024-03-20 22:07 | XMS_ITS | Encounter Summary ---
Author Organization [facility] Address [facility] [place] [address] Care Team Providers Care Sandfill Operator Name Role Phone Yvette Reyes APRN Primary Care Provider [phone] Encounter Details Date Type Department Care Team (Late st Contact Info) Description 02/26/2023 Transcribe Orders eDH Incoming Referrals [phone] [address], [address] [place], [place] [id number] Social History Tobacco Use Types Packs/Day Years [...] 3:20 PM EDT Office Visit Dermatology at [facility] [address] [place] [address] Dayanna Ramírez MD [facility] [address] [place] [address] documented as of this encounter Visit Diagnoses Not on filedocumented in this encounter Care Teams Sandfill Operator Relationship Specialty Start Date End Date Yvette Reyes APRN [address] [place] [address] [facility] [place] [id number] PCP - General Family Medicine 03/21/21 09/23/23 documented as of this encounter
--- OUTSIDE RECORDS SUMMARY | 2024-03-20 22:07 | XMS_ITS | Encounter Summary ---
Author Organization [facility] [place] [address] Care Team Providers Care Trauma Therapist Name Role Phone Billie Ly MD Primary Care Provider [phone] Reason for Visit * Reason Comments Medication Refill Encounter Details Date Type Department Care Team (Late st Contact Info) Description 10/07/2020 Refill Family Medicine at [facility] [address] [place] [address] Billie Ly MD [facility] [address] [place] [address] Social History Tobacco Use Types Packs/Day Years [...] 3:20 PM EDT Office Visit Dermatology at [facility] [address] [place] [address] Dayanna Ramírez MD [facility] [place] [address] documented as of this encounter Visit Diagnoses Not on filedocumented in this encounter Care Teams Trauma Therapist Relationship Specialty Start Date End Date Billie Ly MD [facility] [address] [place] [address] PCP - General Family Medicine 02/20/19 03/20/21 documented as of this encounter
--- OUTSIDE RECORDS SUMMARY | 2024-03-20 22:07 | XMS_ITS | Encounter Summary ---
Author Organization [facility] Address [facility] [place] [address] Care Team Providers Care Commercial Fisherman Name Role Phone Billie Ly MD Primary Care Provider [phone] Reason for Visit * Reason Comments Blurred Vision Eye Problem Encounter Details Date Type Department Care Team (Late st Contact Info) Description 05/19/2020 12:30 PM EDT Procedure [place] [address] Valarie Fry MD [facility] [place] [address] Unspecified visual disturbance Social History Tobacco Use Types Packs/Day Years [...] as of this encounter Progress Notes * Valarie Olivo MD - 05/19/2020 12:30 PM EDT HVF today, full in both eyes. documented in this encounter Miscellaneous Notes * Addendum Note - Valarie Olivo MD - 05/19/2020 12:30 PM EDT Addended by: VALARIE OLIVO on: 05/20/2020 01:55 PM Modules accepted: Level of Service documented in this encounter Plan of Treatment Upcoming Encounters Date Type Department Care Team (Late st Contact Info) Description 04/07/2024 3:20 PM EDT Office Visit Dermatology at [facility] [address] [place] [address] Dayanna Ramírez MD [facility] [address] [place] [address] documented as of this encounter Procedures Procedure Name Priority Date/Time Associated Diagnosis Comments AUTOMATED VISUAL FIELD - EXTENDED - OU- BOTH EYES Routine 05/20/2020 1:54 PM EDT Unspecified visual disturbance documented in this encounter Results * Automated Visual Field - Extended - OU - Both Eyes (05/20/2020 1:54 PM EDT) Anatomical Region Laterality Modality Other Narrative 05/20/2020 1:54 PM EDT Right Eye Threshold was 24-2. Strategy was YESY. Reliability was good. Findings include normal observations. Left Eye Threshold was 24-2. Strategy was YESY. Reliability was good. Findings include normal observations. Valarie Fry MD OPHTHALMOLOGY SE RVICES ORDERABLES documented in this encounter Visit Diagnoses Diagnosis Unspecified visual disturbance documented in this encounter Care Teams Commercial Fisherman Relationship Specialty Start Date End Date Billie Ly MD [facility] [address] [place] [address] PCP - General Family Medicine 02/20/19 03/20/21 documented as of this encounter
--- OUTSIDE RECORDS SUMMARY | 2024-03-20 22:07 | XMS_ITS | Clinical Summary ---
Author Organization [facility] Address [facility] [place] [address] Care Team Providers Care Plasterer Journeyman Name Role Phone Abby Guaman APRN Primary Care Provider [phone] Allergies Active Allergy Reactions Criticality Noted Date Comments Azithromycin Anaphylaxis High Epinephrine Other (See Comments) fast heart rate Influenza Virus Vaccines Low 04/28/2015 Declines based on prior fevers, fatigue. Latex Rash BURNING/ THROAT CLOSES Penicillins Anaphylaxis High Medications Medication Sig Dispensed Refills Start Date End Date Status levalbuterol (XOPENEX HFA) 45 mcg/actuation HFA Aerosol InhalerIndications:M ild intermittent asthma without complication Inhale 1-2 puffs into the lungs every 4 hours as needed. 1 Inhaler 3 04/18/2016 Active cetirizine (ZYRTEC) 10 mg Tablet Take 1 tablet by mouth daily. 90 tablet 3 06/04/2019 Active naproxen (NAPROSYN) 500 mg Tablet TAKE 1 TABLET BY MOUTH TWICE DAILY WITH MEALS 60 tablet 3 10/08/2020 Active dicyclomine (BENTYL) 20 mg Tablet Take 20 mg by mouth every 6 hours. Active famotidine (Pepcid) 20 mg Tablet Take 20 mg by mouth 2 times daily. Active hydrocortisone 1 % CreamIndications:Int ertrigo Apply twice daily for no more than 14 days 30 g 3 04/05/2023 Active clotrimazole (LOTRIMIN) 1 % CreamIndications:Int ertrigo Apply topically twice daily x 21 days, then 1-2 x a week thereafter 30 g 5 06/04/2023 Active tretinoin (RETIN-A) 0.025 % CreamIndications:Acn e vulgaris Apply a pea size amount to the face nightly. As it can be irritating, start 2-3 times per week and slowly increase to nightly use. Can also mix with a bland moisturizer to help with irritation. 45 g 06/04/2023 Active cholecalciferol (Vitamin D3) 1,000 unit tablet Take 1,000 Units by mouth daily. 03/02/2023 Active hydroCHLOROthiazide (Hydrodiuril) 12.5 mg tablet Take 12.5 mg by mouth daily. 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 thyroid function tests consistent with hyperthyroid and thyroid uptake scan pending ROS, Feels hot and cold intermittently, frequent diarrhea lost wght Summer 2017 , after gaining the last few years hair thinning and dry always TSH nml in 2015, Neck trama 2014 and MRI with mild degenerative changes Assessment & Plan (04/24/2018 11:58 AM EDT): Lump on rt side of neck, since 5-18, full sensation for > yr feels like a golf ball when swallowing, Pain with eating Difficulty when talking and palpable on outside of neck decreased appetite , but gaining wght Feels heavy when lies down US 9-18 ill-defined appearance of these regions, and tenderness during exam could represent a nonspecific subacute thyroiditis with Graves' disease less likely. thyroid function tests consistent with hyperthyroid and thyroid uptake scan pending ROS, Feels hot and cold intermittently, frequent diarrhea lost wght Summer 2017 , after gaining the last few years hair thinning and dry always TSH nml in 2015, Neck trama 2014 and MRI with mild degenerative changes Assessment & Plan (04/16/2018 2:59 PM EDT): Lump on rt side of neck, since 5-18, full sensation for > yr feels like a golf ball when swallowing, Pain with eating Difficulty when talking and palpable on outside of neck decreased appetite , but gaining wght Feels heavy when lies down TSH nml in 2016, Neck trama 2014 and MRI with mild degenerative changes wonders if related to painting HPV in female 04/28/2015 Abnormal Pap smear of cervix 04/28/2015 Encounter for preventive care 03/03/2015 Overview (04/16/2018): Pap: 2018 , not sexually active Next due 3-5 years for low risk: , sooner if you have symptoms or risks change Mammogram: 2018 Begin at 50 , unless FH, repeat 1-2 years for low risk Cholesterol testing:pending every 5 years if normal Diabetes testing: pending Every 5 years if normal Colonoscopy: 2011 Begin at 50, unless FH, repeat every 5-10 years pending results Vaccines: Tetanus 2009 This is good for 10 years. Pneumonia vaccine is recommended once after age 65: Shingles vaccine should be considered after age 60. Check with your insurance and call for a nurse visit if you would like this shot. Annual flu shot is recommended Osteoporosis Screening: Your risk appears average so we will test at age 65, for now, prevent falls & make sure you get calcium 1200 mg a day and vitamin D 400-800 iu/day in your diet. Assessment & Plan (04/16/2018 3:00 PM EDT): Pap: 2018 , not sexually active Next due 3-5 years for low risk: , sooner if you have symptoms or risks change Mammogram: 2018 Begin at 50 , unless FH, repeat 1-2 years for low risk Cholesterol testing:pending every 5 years if normal Diabetes testing: pending Every 5 years if normal Colonoscopy: 2011 Begin at 50, unless FH, repeat every 5-10 years pending results Vaccines: Tetanus 2009 This is good for 10 years. Pneumonia vaccine is recommended once after age 65: Shingles vaccine should be considered after age 60. Check with your insurance and call for a nurse visit if you would like this shot. Annual flu shot is recommended Osteoporosis Screening: Your risk appears average so we will test at age 65, for now, prevent falls & make sure you get calcium 1200 mg a day and vitamin D 400-800 iu/day in your diet. NEENA (juvenile idiopathic arthritis) 07/19/2012 PTSD (post-traumatic stress disorder) 01/01/2009 Asthma Myocardial infarct Rheumatoid arthritis Resolved Problems Problem Noted Date Diagnosed Date Resolved Date Rectocele 01/22/2018 04/16/2018 Abdominal pannus 06/29/2017 04/24/2018 Neuropathic pain 05/12/2015 04/24/2018 Headache(784.0) 05/12/2015 02/11/2016 Hypermobile joints 03/03/2015 8 Disc disease, degenerative, cervical 03/03/2015 04/16/2018 Fibrocystic breast 04/24/2013 8 Breast mass 12/20/2012 04/24/2013 Breast pain 09/19/2011 04/16/2018 Abnormal Reproductive Tract Bleeding 01/01/2009 09/12/2016 asthma 01/01/2009 08/16/2015 Fibromyalgia 01/01/2009 02/11/2016 GERD 01/01/2009 02/11/2016 H/O sciatica 03/03/1997 04/16/2018 Stress and urge incontinence 04/16/2018 Uterine cancer 09/12/2016 Immunizations Name Administration Dates Next Due Pneumococcal Conjugate (Prevnar 13) 03/24/2020 Pneumococcal Polysaccharide (Pneumovax 23) 05/20 Tdap 03/24/2020,01/01/2009 Zoster (ShingRix), Recombinant 05/20/2020,2019 Family History Medical History Relation Comments Asthma Brother 1 Heart Disease Brother 1 Amblyopia Father Diabetes Father Breast Cancer Maternal Aunt great aunts Breast Cancer Maternal Grandmother Cataracts Maternal Grandmother Coronary Artery Disease Maternal Grandmother Glaucoma Maternal Grandmother Ovarian Cancer Maternal Grandmother unclear his tory, perhaps stomach? Coronary Artery Disease Maternal Uncle Heart Defect Maternal Uncle Asthma Mother Heart Disease Mother Alcohol Use Disorder Neg Hx Substance Use Disorder Neg Hx Relation Status Comments Brother 1 Alive Brother 2 Alive Father Other Maternal Aunt Maternal Grandmother grandmother , uterine cancer and breast cancer, ovarian cancer Maternal Uncle Mother Alive Social History Tobacco Use Types Packs/Day Years Used Date Smoking Tobacco: Never Smokeless Tobacco: Never Alcohol Use Standard Drinks/Week Comments Not Currently 0 (1 standard drink = 0.6 oz pur e alcohol) rare Sex and Gender Information Value Date Recorded Sex Assigned at Not on file Gender Identity Not on file Sexual Orientation Not on file Last Filed Vital Signs Vital Sign Reading Time Taken Comments Blood Pressure 130/80 06/08/2023 9:53 AM EDT Pulse 83 06/08/2023 9:53 AM EDT Temperature 36.7 ??C (98.1 ??F) 03/02/2023 11:59 AM E DT Respiratory Rate 18 03/02/2023 4:41 PM EDT Oxygen Saturation 96% 06/08/2023 9:53 AM EDT Inhaled Oxygen Concentration - - Weight 73.5 kg (162 lb) 06/08/2023 9:53 AM EDT Height 155.8 cm (5' 1.34) 06/08/2023 9:53 AM ED T Body Mass Index 30.27 06/08/2023 9:53 AM EDT Plan of Treatment Upcoming Encounters Date Type Department Care Team (Late st Contact Info) Description 04/07/2024 3:20 PM EDT Office Visit Dermatology at [facility] [address] [place] [address] Dayanna Ramírez MD [facility] [address] [address] Health Maintenance Due Date Last Done Comments CT Colonography 1968 FIT DNA 1968 FIT 1968 Sigmoidoscopy 1968 Hepatitis B vaccine (0-59 yrs) (1) 01/18/1987 Breast Cancer Share Decision Needed 2008 PAP Smear 03/24/2021 03/24/2020, 04/0 04/2018, 09/11/2016, Additional history exists Advance Directive 01/18/2023 Covid-19 Vaccine ( - 2022-2 4 season) 2023 Influenza (Flu) vaccine (1 o f 1 - Influenza standard series) 04/13/2024 Lipid Screening 03/24/2025 03/24/2020, 06/13, 03/17/2014 Breast Cancer screening 04/24/2025 04/24/20 23, 02/19/2018, 11/10/2016, Additional history exists Diabetes Screening (HgbA1C o r Glucose) 03/02/2026 03/02/2023, 12/31/2022, 03/24/2020, Additional history exists Colonoscopy 03/31/2029 03/31/2019, 03/13, 09/08/2011, Additional history exists Colorectal Cancer Screening 03/31/2029 Sigmoidoscopy (10 year) with FIT yearly 03/31/2029 03/31/2019, 03/31/2019, 09/08/2011, Additional history exists Tetanus vaccine 03/24/2030 03/24/2020, 01/01/2009 Pneumococcal Vaccine: At-Ris k 5-64yrs (3 of 3 - PPSV23 or PCV20) 01/18/2033 05/20/2020, 03/24/2020 HIV screen Completed 12/26/2013 Hepatitis C Screening Completed 12/15/2016 Tdap adult Completed 03/24/2020, 01/01/2009 Zoster vaccine Completed 05/20/2020, 03/24/2020 Procedures Procedure Name Priority Date/Time Associated Diagnosis Comments MAMMO SCREENING CAD AND COLBY BILATERAL Routine 04/24/2023 11:10 AM EDT Screening mammogram for breast cancer COMPREHENSIVE METABOLIC PANEL STAT 03/02/2023 2:30 PM EDT LIPID PANEL (REFLEX DIRECT LDL) Routine 03/24/2020 11:25 AM EDT Preventative health care CLASS B DRIVER CYTOLOGY FINAL REPORT Routine 03/24/2020 10:40 AM EDT COLONOSCOPY Routine 03/31/2019 12:31 PM EDT HEPATITIS C ANTIBODY Routine 12/15/2016 2:43 PM EDT Elevated LFTs HIV SCREEN, 4TH GENERATION ([facility]/CGP/APD/[facility]H) Routine 12/26/2013 1:25 PM EDT Screen for STD (sexually transmitted disease) from Last 3 Months or Most Recently Relevant to Health Maintenance Results * Mammo Screening Cad and Colby Bilateral (04/24/2023 11:10 AM EDT) Anatomical Region [...] signed by: JUAN CARLOS CHAMPAGNE MD Mart Cordoba [facility] MAMMO ORDERABLE S * (ABNORMAL) Comprehensive metabolic panel (non-fasting) (03/02/2023 2:30 PM EDT) Glucose 80 65 - 199 mg/dL [facility] Comment:Diabetes: >=200 mg/d L plus symptoms Blood Urea Nitrogen 9 8 - 18 mg/dL [facility] Creatinine 0.74 0.70 - 1.20 mg/dL [facility] Sodium 144 135 - 145 mmol/L [facility] Potassium 3.7 3.5 - 5.0 mmol/L [facility] Comment: Please note: ??Patients with WBC >100,000 may have falsely elevated Potassium levels. ??For accurate Potassium quantification in these patients send serum separator tube (gold top) for subsequent determinations. ??Contact the Clinical Chemistry Laboratory if there are any questions. Chloride 108(H) 98 - 107 mmol/L [facility] Carbon Dioxide 24 22 - 31 mmol/L [facility] Anion Gap 12 5 - 15 mmol/L [facility] Calcium 9.5 8.5 - 10.5 mg/dL [facility] Protein, Total 6.8 6.1 - 8.0 g/dL [facility] Albumin 4.3 3.2 - 5.2 g/dL [facility] Aspartate Aminotransferase 24 0 - 30 unit/L [facility] Alanine Aminotransferase 25 0 - 30 unit/L [facility] Alkaline Phosphatase 77 35 - 105 unit/L [facility] Bilirubin, Total 0.9 0.2 - 1.3 mg/dL [facility] Est Glomerular Filtration Rate 95 >=60 mL/min/1. 73 m?? [facility] Comment: This patient's estimated GFR was [...] and symptoms in addition to eGFR. Blood 03/02/2023 2:30 PM EDT 03/02/2023 2:49 PM EDT Narrative Resulting Agency Comment Spec In Lab Nisha Farooq MD CHEMISTRY ORDERABLES Performing Organization Address City/State/[facility] Co de Phone Number [facility] [place] [address] * Lipid Panel (Reflex Direct LDL) (03/24/2020 11:25 AM EDT) Cholesterol, Total 184 mg/dL [facility] Comment: Lower Risk: <200 mg/dL Average Risk: 200-239 mg/dL Higher Risk: >ov=645 mg/dL Triglyceride 134 mg/dL [facility] Comment: Average Risk/Lower Risk: <150 mg/dL Borderline High Risk: 150-199 mg/dL High Risk: 200-499 mg/dL Very High Risk: >or=401 mg/dL HDL Cholesterol 54 mg/dL [facility] Comment: Males: ?? Higher Risk: <40 mg/dL Females: ?? HIgher Risk: <50 mg/dL LDL Cholesterol 103 mg/dL [facility] Comment: Lowest Risk: <100 mg/dL Lower Risk: 100-129 mg/dL Borderline High Risk: 130-159 mg/dL High Risk: 160-189 mg/dL Very High Risk: >ct=588 mg/dL Cholesterol/HDL Ratio 3.4 ratio [facility] Lipid Interpretation See Note [facility] Comment: Lipid management should be guided by a patient? s ASCVD risk, goals and preferences. ACC/AHA Guidelines recommend high intensity statin if clinical ASCVD or LDL greater than or equal to 190 mg/dL. http://[employer]/XHA-LUG-Igmjiaswm Adults aged 40-75 with LDL 70-189 mg/dL should have their 10 year ASCVD risk estimated with the ACC/AHA ASCVD risk commercial construction estimator http://tools.acc.org/MUYOX-Rzvp-Nudazniln/ Statin should be discussed if risk greater [...] Ly MD CHEMISTRY ORDERABLES [facility] [place] [address] * Canal Equipment Maintenance Supervisor Cytology Final Report (03/24/2020 10:40 AM EDT) Canal Equipment Maintenance Supervisor Cytology Final Report [id number] ? Location: [facility] The signing pathologist has (i) examined the relevant preparation(s) for the specimen(s) and (ii) rendered or confirmed the diagnosis(es). . ? Canal Equipment Maintenance Supervisor Final DIAGNOSIS Normal Negative for intraepithelial lesion or malignancy (NILM). For consensus guidelines for the management of cervical cancer screening test results, please see: ?? http://www.asccp.o rg . Electronically signed by: ??Joao MANZANO(ASCP)Carri Verified: ??03/29/2020 ?Reconciliation Analyst Performed at: ??-[facility] Dept. of Pathology, [place], [place] DISCUSSION Atrophic pattern sample. HPV RESULTS [...] to detect low risk HPV types. Doug chris HPV test Specimen: HPV Testing - Cytology Liquid Based Prep The Doug chris ? HPV test was validated, performed and results reported through the Laboratory for Clinical Genomics and Advanced Technology (CGAT) at [facility]. ? - Dre Box, PhD, [facility], Director-[facility] STATEMENT OF ADEQUACY Specimen submitted is satisfactory for evaluation. No endocervical component present. Note: ??Initial cross-sectional studies suggested that ATYLOR cells were more commonly identified when an [...] ?Yes, history of previous abnormal Pap Prior CLASS B DRIVER Therapy: ? No . CLINICAL INFORMATION Hist of HPV Vaccine: ? No ICD Diagnosis: ? Z12.4 Encounter for screening for malignant neoplasm of cervix Clinical Data, Significant Therapy and Clinical Impression ?? : ?_ This Pap Test has been evaluated with the assistance of the ThinPrep Pap Test Imaging System. Note: The Pap test is a screening test for cervical cancer with an inherent false-negative rate dependent upon several variables. For further information please contact the [facility] Laboratory. Reference: Jacquelyn VERDUGO. Respiratory Care Faculty of Pap Smear Results. In: Felipe BS, Bob HH, ed. The Pap Smear. [place]: Suraj, 2002: 71-77. [facility] 03/24/2020 10:4 0 AM EDT Billie Ly MD PATHOLOGY/CYTOLOGY O RDERABLES [facility] [place] [address] * COLONOSCOPY (03/31/2019 12:31 PM EDT) COLONOSCOPY [facility] Endoscopy Procedure Date: 03/31/2019 12:31 PM ? Patient Name: Yumiko Chang ? Date of : 1970 ? Age: 49 ? Order #: [id number] ? Instrument Name: [id number] ? Procedure: ? Colonoscopy Indications: ? Change in bowel habits Providers: ? Layne Irwin MD, Emily Reyna RN, Rahul ? Sonal Mcginnis, Vest Front Presser, Iker ? Jake Jerez MD: ?Billie Ly Medicines: ? Midazolam 2 mg IV, Fentanyl 100 ? micrograms IV Complications: ? No immediate complications. Procedure: ? Pre-Anesthesia Assessment: ? - Prior to the procedure, a History ? and Physical was performed, and ? patient medications, allergies and ? sensitivities were reviewed. The ? patient's tolerance of previous ? anesthesia was reviewed. ? - The risks and benefits of the ? procedure and the sedation options ? and risks were discussed with the ? patient. All questions were answered ? and informed consent was obtained. ? The procedure, indications, benefits, ? risks and alternatives were explained ? to the patient. Specifically ? discussed were potential ? complications including, but not ? limited to, bleeding, perforation, ? infection, missing a cancer, and ? adverse medication reactions. The ? patient was placed in the left ? lateral decubitus position, and a ? digital rectal exam was performed. ? The Colonoscope was inserted in the ? anus and under direct visualization, ? advanced to the terminal ileum. ? Careful inspection was made as the ? colonoscope was withdrawn. The ? colonoscopy was performed without ? difficulty. The patient tolerated the ? procedure well. The quality of the ? bowel preparation was excellent. ? Findings: ? The colon (entire examined portion) appeared normal. ? The terminal ileum appeared normal. ? Moderate Sedation: ? I was present during the intraservice time as ? documented by the sedation RN. Impression: ?- The entire examined colon is normal. ? - The examined portion of the ileum ? was normal. ? - No specimens collected. Recommendation: ?Follow up in clinic. ? Repeat study in 10 years. ? Attending Participation: ? I personally performed the entire procedure. ? I was present and participated during the entire ? procedure, including non-cooper portions. ? Layne Irwin MD 03/31/2019 2:09:55 PM This report has been signed electronically. Number of Addenda: 0 Note Initiated On: 03/31/2019 12:31 PM [employer] 03/31/2019 12:3 1 PM EDT Billie Ly MD GENERAL SURGICAL ORD ERABLES [employer] * Hepatitis C Antibody (12/15/2016 2:43 PM EDT) Hepatitis C Antibody Negative Negative [facility] Comment: An updated Hepatitis C Ab assay reagent was implemented on 10/25/16. Please contact Dr. Moody at [phone] with any questions or concerns. Blood specimen (specimen) 12/15/2016 2:43 PM EDT 12/15/2016 6:25 PM EDT Narrative Resulting Agency Comment Spec In Lab Abby Guaman APRN CHEMISTRY ORDERABLES Performing Organization Address City/[facility]/ZIP Co de Phone Number [facility] [place] [address] * HIV (12/26/2013 1:25 PM EDT) HIV 1/2 Ab Negative Negative CERNER MILLENNIUM Blood specimen (specimen) 12/26/2013 1:25 PM EDT 12/26/2013 1:29 PM EDT Narrative Resulting Agency Comment Spec In Lab Maryan West MD CHEMISTRY ORDERABLE S CERJESSENIA MILLENNIUM from Last 3 Months or Most Recently Relevant to Health Maintenance Care Teams Plasterer Journeyman Relationship Specialty Start Date End Date Abby Guaman, [employer] [place] [address] PCP - General Family Medicine 09/24/23
--- OUTSIDE RECORDS SUMMARY | 2024-03-20 22:07 | XMS_ITS | Encounter Summary ---
Author Organization [facility] Address [facility] [place] [address] Care Team Providers Care Video Game Script Writer Name Role Phone Yvette Reyes APRN Primary Care Provider [phone] Encounter Details Date Type Department Care Team (Latest Contact Info) Description 04/18/2023 Travel Social History Tobacco Use Types Packs/Day [...] at [facility] [address] [place] [address] Ramírez MD [facility] [address] [place] [address] documented as of this encounter Visit Diagnoses Not on filedocumented in this encounter Care Teams Video Game Script Writer Relationship Specialty Start Date End Date Yvette Reyes APRN [address] [place] [address] PCP - General Family Medicine 03/21/21 09/23/23 documented as of this encounter
--- OUTSIDE RECORDS SUMMARY | 2024-03-20 22:07 | XMS_ITS | Encounter Summary ---
[place] [address] Care Team Providers Care [employer] Name Role Phone Eric Yvette JOAN Primary Care Provider [phone] Reason for Visit * Reason Comments Influenza Covid Positive Encounter Details Date Type Department Care Team (Late st Contact Info) Description 03/02/2023 12:31 PM EDT - 03/02/2023 4:51 PM EDT [place] [address] Lightheadedness; Chest tightness; COVID-19 Discharge Disposition: Home Social History Tobacco Use [...] Sign Reading Time Taken Comments Blood Pressure 128/73 03/02/2023 4:41 PM EDT Pulse 60 03/02/2023 4:41 PM EDT Temperature 36.7 ??C (98.1 ??F) 03/02/2023 11:59 AM E DT Respiratory Rate 18 03/02/2023 4:41 PM EDT Oxygen Saturation 100% 03/02/2023 4:41 PM EDT Inhaled Oxygen Concentration - - Weight 78.9 kg (174 lb) 03/02/2023 11:59 AM EDT Height 154.9 cm (5' 1) 03/02/2023 11:59 AM EDT Body Mass Index 32.88 03/02/2023 11:59 AM EDT documented in this encounter Discharge Instructions * Discharge Instructions* Chicho Garcia PA - 03/02/2023 4:14 PM EDT -your EKG and blood work including test for heart attack was all normal today -chest x-ray did not show any acute abnormalities today -Your urine did not show any signs of infection -Clinically your symptoms are most likely related to your recent COVID-19 infection -continue your regular medications as prescribed -Use the Zofran for nausea and vomiting as needed -Push liquids by mouth keep yourself well-hydrated -call your primary care provider for follow-up regarding your symptoms as soon as possible -return to the emergency department for increased lightheadedness, chest pain, trouble breathing, fevers, or any concerns * Attachments The following attachments cannot be sent through Care Everywhere. * Coronavirus Disease (COVID-19): General Info (Armenian) * Chest Pain (Armenian) documented in this encounter Medications at Time of Discharge Medication Sig Dispensed Refills Start Date End Date cholecalciferol (Vitamin D3) 1,000 unit tablet Take 1,000 Units by mouth daily. 03/02/2023 dicyclomine (BENTYL) 20 mg Tablet Take 20 [...] hours as needed. 1 Inhaler 3 04/18/2016 ondansetron (Zofran) 4 mg tablet Take 1 tablet by mouth every 8 hours as needed for Nausea. 12 tablet 03/02/2023 06/18/2023 pantoprazole EC (Protonix) 20 mg Tablet, Delayed Release (E.C.) Take 1 tablet by mouth daily. 90 tablet 05/19/2020 06/18/2023 documented as of this encounter ED Notes * Chicho Garcia PA - 03/02/2023 1:34 PM EDT ED Provider Note HPI: Yumiko Chang is a 53 y.o. female history of asthma, Suzy-Danlos, GERD, fibromyalgia, juvenile rheumatoid arthritis, AL 20 years ago related to some medications, laparoscopy, bilateral tubal ligation, LEEP procedure. She tested positive for COVID-19 on February 21. She is vaccinated twice for COVID but has not had a booster. She has been feeling poorly since then. Her son who she lives with apparently also had COVID. She reports she has been feeling short of breath but not really wheezing. She had some tightness in her chest. She had some fevers initially around the time she was diagnosed withCOVID but that has not continued. She has had some sweats. She been feeling lightheaded and generally weak. Reports some nausea and vomiting and diarrhea intermittently the diarrhea has persisted. She does have some urinary symptoms yesterday frequency and discomfort with urination. Because of all this she came in for evaluation with her children History is obtained from the patient. She does not smoke, drink, use drugs, lives with her son, is accompanied by her son and daughter here in the emergency department ROS as per HPI Vitals: ED Triage Vitals [03/02/23 1159] BP: (!) 137/93 Heart Rate: 70 Resp: 20 Temp: 36.7 ??C (98.1 ??F) Temp src: Tympanic SpO2: 100 % O2 Device: RA O2 Flow Rate (L/min): n/a Physical Exam Vitals and nursing note reviewed. Constitutional: General: She is not in acute distress. HENT: Head: Normocephalic and atraumatic. Mouth/Throat: Pharynx: Oropharynx is clear. Comments: Speech is fluent Cardiovascular: Rate and Rhythm: Normal rate and regular rhythm. Heart sounds: No murmur heard. No friction rub. No gallop. Pulmonary: Effort: Pulmonary effort is normal. No respiratory distress. Breath sounds: No wheezing, rhonchi or rales. Chest: Chest wall: No tenderness. Abdominal: General: Abdomen is flat. Bowel sounds are normal. Palpations: Abdomen is soft. Tenderness: There is no abdominal tenderness. Musculoskeletal: General: No swelling. Normal range of motion. Cervical back: Normal range of motion and neck supple. No rigidity. Skin: General: Skin is warm and dry. Neurological: General: No focal deficit present. Mental Status: She is alert and oriented to person, place, and time. Motor: No weakness. ED Course: I have reviewed labs and imaging, images and available reports, TION} ED Course as of 03/02/23 1545 SunMar 02, 2023 1329 COMPARISON: Chest radiograph 12/31/2022 FINDINGS: The lung volumes are decreased, which accentuates the pulmonary vascular markings and cardiac silhouette. . No focal consolidation. No pneumothorax or pleural effusion. Cardiomediastinal silhouette is within normal limits. No acute osseous abnormality. IMPRESSION 1. The lung volumes are decreased, which accentuates the pulmonary vascular markings and cardiac silhouette. 2. No focal pulmonary opacity. 1400 EKG was done at 1344 and reviewed. This shows a sinus rhythm at 54. Normal axis. Normal intervals. No significant ST-T wave changes. No change compared to 1 from December 31, 2022 1544 WBC: 5.6 1544 Hemoglobin: 13.0 1544 Platelets: 234 1544 Sodium: 144 1544 Potassium: 3.7 1544 Chloride(!): 108 1544 CO2: 24 1544 Creatinine: 0.74 1544 BUN: 9 1544 Glucose Lvl: 80 1544 AST: 24 1544 ALT: 25 1545 Total Bilirubin: 0.9 1545 Troponin-T HS: <6 1545 Color UA: Yellow 1545 Leukocytes UA(!): Small 1545 Nitrite UA: Negative 1545 RBC UA: 1 1545 WBC UA: 5 1545 Bacteria UA(!): Few Procedures Assessment and Plan: 53 y.o. female with history of asthma, Suzy-Danlos, PTSD, GERD, fibromyalgia, AL 20 years ago from some medications, juvenile rheumatoid arthritis. She comes into the emergency department because of continued problems with shortness of breath, chest tightness, sweats, nausea vomiting and diarrhea. She is also feeling lightheaded and fatigued. She tested positive for COVID-19 on February 21. She is vaccinated but not boosted for COVID. She is also had some urinary symptoms. Because of all this shedecided to come in for evaluation. Emergency room she is afebrile hemodynamically stable. Her exam is really benign. Clinically I think this certainly may be related to the COVID infection still clearing. She is really nontoxic. We will get some basic labs, urinalysis, chest x-ray. I am going to give her some IV fluids, Toradol and Zofran. We will reevaluate following this 4:10 PM-patient was reevaluated. She is resting comfortably and her vital signs are all stable. Oxygen level is 100% heart rates in the 50s. Says she feels a bit better following the Zofran. Is not had any vomiting. She was told that her blood work is all normal today. Her hemoglobin is stable. Hertroponin was less than 6 so a second 1 is not being repeated as she has had symptoms for several days. Her urine does not show any signs of significant infection. Her chest x- ray is clear. ClinicallyI think her symptoms may be related to her recent COVID- 19 infection. She is certainly nontoxic appearing. I do not feel additional testing or interventions are indicated here in the emergency department today. I do think she needs to follow-up with her primary care if symptoms are persisting and she should call them on Sunday for an appointment. She should return here if she has increased trouble breathing, palpitations, chest pains, lightheadedness or any concerns. She is comfortable to plan for discharge Final diagnosis #1 lightheadedness #2 chest tightness #3 recent COVID-19 infection Disposition Home stable Chicho Garcia PA 03/02/23 1612 documented in this encounter Plan of Treatment Upcoming Encounters Date Type Department Care Team (Late st Contact Info) Description 04/07/2024 3:20 PM EDT Office Visit Dermatology at [facility] [address] [place] [address] Dayanna Ramírez MD [facility] [place] [address] documented as of this encounter Procedures Procedure Name Priority Date/Time Associated Diagnosis Comments URINALYSIS MICROSCOPIC EXAM STAT 03/02/2023 2:36 PM EDT URINALYSIS WITH REFLEX CULTURE STAT 03/02/2023 2:36 PM EDT TROPONIN - SERIES STAT 03/02/2023 2:3 0 PM EDT HEMOGRAM STAT 03/02/2023 2:30 PM EDT DIFFERENTIAL, AUTOMATED STAT 03/02/2023 2:30 PM EDT GOLD TUBE HOLD STAT 03/02/2023 2:30 PM EDT CBC (WITH DIFF) STAT 03/02/2023 2:30 PM EDT COMPREHENSIVE METABOLIC PANEL STAT 03/02/2023 2:30 PM EDT EKG 12-LEAD STAT 03/02/2023 1:44 PM EDT XR CHEST ONE VIEW STAT 03/02/2023 1:0 0 PM EDT documented in this encounter Results * (ABNORMAL) Urinalysis Microscopic Exam (03/02/2023 2:36 PM EDT) RBC, Urine 1 0 - 4 /HPF [facility] WBC, Urine 5 0 - 5 /HPF [facility] Bacteria, Urine Few(A) None /HPF [facility] Squamous Epithelial Cells Raw Data, Urine 2 <=4 /HPF [facility] Urine 03/02/2023 2:36 PM EDT 03/02/2023 2:51 PM EDT Narrative Resulting Agency Comment Spec In Lab Chicho MORA URINE ORDERABLES [facility] [place] [address] * (ABNORMAL) Urinalysis with reflex Culture (03/02/2023 2:36 PM EDT) Glucose, Urine Dipstick Negative Negative mg/dL [facility] Protein, Urine Dipstick Negative Negative mg/dL [facility] Bilirubin, Urine Dipstick Negative Negative mg/dL [facility] Comment: Clinical correlation required for positive Urine Bilirubin results as false positive may occur with some drugs and drug related products. If a false positive is suspected a serum total bilirubin should be considered if clinically indicated. Urobilinogen, Urine Dipstick Normal Normal mg/dL [facility] pH, Urn (dipstick) 7.0 5.0 - 8.0 [facility] Blood, Urine Dipstick Negative Negative mg/dL [facility] Ketone, Urine Dipstick Negative Negative mg/dL [facility] Nitrite, Urine Dipstick Negative Negative [facility] Leukocytes, Urine Dipstick Small(A) Negative mcL [facility] Appearance, Urine Dipstick Clear Clear [facility] Specific [place] Urine Automated 1.008 1.005 - 1.030 [facility] Color, Urine Dipstick Yellow Yellow [facility] Reflex to Culture No [facility] Urine 03/02/2023 2:36 PM EDT 03/02/2023 2:51 PM EDT Narrative Resulting Agency Comment Spec In Lab Nisha Farooq MD URINE ORDERABLES Performing Organization Address [facility] Co de Phone Number [facility] [place] [address] * Gold Tube HOLD (03/02/2023 2:30 PM EDT) Gold Hold Sample in lab. [facility] Blood Venous Draw / Unknown 03/02/2023 2:30 PM EDT 03/02/2023 2:50 PM EDT Chicho MORA CHEMISTRY ORDERABLE S Performing Organization Address City/[facility]/ZIP Co de Phone Number [facility] [place] [address] * Differential, Automated (03/02/2023 2:30 PM EDT) Neutrophil % 55.2 % [facility] Neutrophil Absolute 3.09 1.70 - 6.10 x10(3)/[facility] Lymph % 36.6 % [facility] Lymphocytes Abs 2.0 0.9 - 3.2 x10(3)/[facility] Monocyte % 6.3 % [facility] Monocyte Abs 0.4 0.3 - 0.9 x10(3)/[facility] Eos % 1.1 % [facility] Eosinophils Abs 0.1 0.0 - 0.4 x10(3)/[facility] Basophil % 0.4 % [facility] Baso Absolute 0.0 0.0 - 0.1 x10(3)/[facility] Immature Gran % 0.40 % [facility] Comment: Immature granulocytes(IG's)percentage and absolute count will include metamyelocytes, myelocytes, and promyelocytes. Blood smears from CBCs yielding IG's will be scanned manually for concordance. If this scan disagrees with the automated IG or if promyelocytes are noted, a manual differential will be performed. Immature Gran Absolute 0.02 0.00 - 0.04 x10(3)/[facility] Blood 03/02/2023 2:30 PM EDT 03/02/2023 2:49 PM EDT Narrative Resulting Agency Comment Spec In Lab Chicho MORA HEMATOLOGY ORDERABL ES [facility] [place] [address] * (ABNORMAL) Hemogram (03/02/2023 2:30 PM EDT) White Blood Cell 5.6 4.0 - 9.5 x10(3)/ L [facility] Red Blood Cell 4.88 4.00 - 5.21 x10(6)/mc L [facility] Hemoglobin 13.0 11.7 - 15.5 g/dL [facility] Hematocrit 39.4 35.7 - 45.8 % [facility] Mean Cell Volume 80.7(L) 82.6 - 94.4 fL [facility] Mean Cell Hemoglobin 26.6(L) 27.1 - 32.0 pg [facility] Mean Cell Hemoglobin Concentration 33.0 31.7 - 35.0 g/dL [facility] Platelet 234 145 - 357 x10(3)/mc L [facility] RDW Standard Deviation 36.1(L) 37.0 - 46.0 fL [facility] RDW coefficient of variation 12.3 11.5 - 14.1 % [facility] Mean Platelet Volume 9.4 7.6 - 12.9 fL [facility] NRBC% auto 0.0 % [facility] NRBC Absolute 0.000 0.000 - 0.000 x10(3)/mc L [facility] Blood 03/02/2023 2:30 PM EDT 03/02/2023 2:49 PM EDT Narrative Resulting Agency Comment Spec In Lab Chicho MORA HEMATOLOGY ORDERABL ES [facility] [place] [address] * Troponin (03/02/2023 2:30 PM EDT) Troponin-T, High Sensitivity <6 <=14 ng/L [facility] Comment: This patient's troponin [...] troponin value can be found in the [facility] Test Catalog Troponin - [facility] Test Catalog Reference: Fourth [place] Definition of Myocardial Infarction. Journal of the [place] College of Cardiology 2018;72:6319-3280 Blood 03/02/2023 2:30 PM EDT 03/02/2023 2:49 PM EDT Narrative Resulting Agency Comment Spec In Lab Nisha Farooq MD CHEMISTRY ORDERABLES [facility] [place] [address] * (ABNORMAL) Comprehensive metabolic panel (non-fasting) (03/02/2023 2:30 PM EDT) Glucose 80 65 - 199 mg/dL [facility] Comment:Diabetes: >=200 mg/d L plus symptoms Blood Urea Nitrogen 9 8 - 18 mg/dL [facility] Creatinine 0.74 0.70 - 1.20 mg/dL [facility] Sodium 144 135 - 145 mmol/L [facility] Potassium 3.7 3.5 - 5.0 mmol/L [facility] Comment: Please note: ??Patients with WBC >100,000 may have falsely elevated Potassium levels. ??For accurate Potassium quantification in these patients send serum separator tube (gold top) for subsequent determinations. ??Contact the Clinical Chemistry Laboratory if there are any questions. Chloride 108(H) 98 - 107 mmol/L [facility] Carbon Dioxide 24 22 - 31 mmol/L [facility] Anion Gap 12 5 - 15 mmol/L [facility] Calcium 9.5 8.5 - 10.5 mg/dL [facility] Protein, Total 6.8 6.1 - 8.0 g/dL [facility] Albumin 4.3 3.2 - 5.2 g/dL [facility] Aspartate Aminotransferase 24 0 - 30 unit/L [facility] Alanine Aminotransferase 25 0 - 30 unit/L [facility] Alkaline Phosphatase 77 35 - 105 unit/L [facility] Bilirubin, Total 0.9 0.2 - 1.3 mg/dL [facility] Est Glomerular Filtration Rate 95 >=60 mL/min/1. 73 m?? [facility] Comment: This patient's estimated [...] Farooq MD CHEMISTRY ORDERABLES Performing Organization Address [facility] Co de Phone Number [facility] [place] [address] * EKG 12 Lead (03/02/2023 1:44 PM EDT) Ventricular rate 54 BPM MUSE SYSTEM Atrial Rate 54 BPM MUSE SYSTEM P-R Interval 162 ms MUSE SYSTEM QRS Duration 82 ms MUSE SYSTEM Q-T Interval 414 ms MUSE SYSTEM QTC Calculated (Bezet) 392 ms MUSE SYSTEM Calculated P Marlow 41 degrees MUSE SYSTEM Calculated R Marlow 65 degrees MUSE SYSTEM Calculated T Marlow 53 degrees MUSE SYSTEM INTERPRETATION Sinus bradycardia Otherwise normal ECG When compared with ECG of 31-DEC-2022 11:03, No significant change was found Confirmed by MD Moore Danette ([id number]) on 03/02/2023 5:03:03 PM MUSE SYSTEM 03/02/2023 1:44 PM EDT 03/02/2023 5:03 PM EDT Nisha Farooq MD ECG ORDERABLES Performing Organization Address City/[facility]/ZIP Co de Phone Number MUSE SYSTEM * XR Chest One View (03/02/2023 1:00 PM EDT) Anatomical Region Laterality Modality Chest N/A Digital Radiogra phy Impressions 03/02/2023 1:17 PM EDT 1. ??The lung volumes are decreased, which accentuates the pulmonary vascular markings and cardiac silhouette. 2. ??No focal pulmonary opacity. I have personally reviewed the image(s) and the resident's interpretation and agree with the findings, Jeancarlos Jackson DO at 03/02/2023 1:17 PM Thank you for letting us participate in the care of this patient. ??If you are a health care provider and have any questions regarding this report, please contact the number below. ??For patients who have questions please contact the health pet care attendant that requested your imaging first. ? Electronically signed by: Jeancarlos Jackson DO, [facility] ([phone]), at 03/02/2023 1:17 PM Narrative 03/02/2023 1:17 PM EDT EXAMINATION: XR CHEST ONE VIEW CLINICAL HISTORY: Shortness of breath COVID-positive TECHNIQUE: 1 view of the chest COMPARISON: Chest radiograph 12/31/2022 FINDINGS: The lung volumes are decreased, which accentuates the pulmonary vascular markings and cardiac silhouette. . No focal consolidation. No pneumothorax or pleural effusion. Cardiomediastinal silhouette is within normal limits. No acute osseous abnormality. Procedure Note Jeancarlos Jackson DO - 03/02/2023 EXAMINATION: XR CHEST ONE VIEW CLINICAL HISTORY: Shortness of breath COVID-positive TECHNIQUE: 1 view of the chest COMPARISON: Chest radiograph 12/31/2022 FINDINGS: The lung volumes are decreased, which accentuates the pulmonary vascular markings and cardiac silhouette. . No focal consolidation. No pneumothoraxor pleural effusion. Cardiomediastinal silhouette is within normal limits. Noacute osseous abnormality. IMPRESSION 1. The lung volumes are decreased, which accentuates the pulmonaryvascular markings and cardiac silhouette. 2. No focal pulmonary opacity. I have personally reviewed the image(s) and the resident's interpretationand agree with the findings, Jeancarlos Jackson DO at 03/02/2023 1:17 PM Thank you for letting us participate in the care of this patient. If youare a health care provider and have any questions regarding this report,please contact the number below. For patients who have questions please contactthe health pet care attendant that requested your imaging first. Electronically signed by: Jeancarlos Jackson DO, [facility]([phone]), at 03/02/2023 1:17 PM Nisha Farooq MD IMG DX ORDERABLES documented in this encounter Visit Diagnoses Diagnosis Lightheadedness Dizziness and giddiness Chest tightness Other chest pain COVID-19 documented in this encounter Administered Medications Inactive Administered Medications - up to 3 most recent administrations Medication Order MAR Action Action Date Dose Rate Site ketorolac (Toradol) (30 mg/mL) injection 15 mg 15 mg, Intravenous, ONCE, 1 dose, On Sun03/02/23 at 1246, STAT Given 03/02/2023 2:31 PM EDT 15 mg ondansetron (pf) (Zofran) (2 mg/mL) injection 4 mg 4 mg, Intravenous, ONCE, 1 dose, On Sun03/02/23 at 1246, STAT Given 03/02/2023 2:21 PM EDT 4 mg sodium chloride 0.9% 1,000 mL IV bolus Intravenous, ONCE, 1 dose, On Sun03/02/23 at 1246 New Bag 03/02/2023 2:37 PM EDT documented in this encounter Active and Recently Administered Medications Times are shown in EDT. Scheduled Medication Order 02/28/2023 03/01/2023 03/02/2023 ketorolac (Toradol) (30 mg/mL) injection 15 mg (COMPLETED) 15 mg, Intravenous, ONCE, 1 dose, On Sun03/02/23 at 1246, STAT 1431 (Given - Provid er: Ximena Barrera RN) ondansetron (pf) (Zofran) (2 mg/mL) injection 4 mg (COMPLETED) 4 mg, Intravenous, ONCE, 1 dose, On Sun03/02/23 at 1246, STAT 1421 (Given - Provid er: Ximena Barrera, GUILLE) sodium chloride 0.9% 1,000 mL IV bolus (COMPLETED) Intravenous, ONCE, 1 dose, On Sun03/02/23 at 1246 1437 (New Bag - Prov ider: Ximena Barrera RN)1500 (Stopped - Provider: Ximena Barrera RN) documented in this encounter Care Teams [employer] Relationship Specialty Start Date End Date Yvtete Reyes, JOAN [address] [facility] [place] [address] PCP - General Family Medicine 03/21/21 09/23/23 documented as of this encounter
--- OUTSIDE RECORDS SUMMARY | 2024-03-20 22:08 | XMS_ITS | Encounter Summary ---
Author Organization [facility] Address [facility] [place] [address] Care Team Providers Care Patient Flow Coordinator Name Role Phone Billie Ly MD Primary Care Provider [phone] Encounter Details Date Type Department Care Team (Latest Contact Info) Description 03/31/2019 11:56 AM EDT - 03/31/2019 3:23 PM EDT Hospital [place] [address] Layne Irwin MD [facility] [place] [address] Discharge Disposition: Home Social History Tobacco Use [...] Sign Reading Time Taken Comments Blood Pressure 91/50 03/31/2019 3:00 PM EDT Pulse 62 03/31/2019 2:00 PM EDT Temperature 36.9 ??C (98.4 ??F) 03/31/2019 12:34 PM E DT Respiratory Rate 16 03/31/2019 3:00 PM EDT Oxygen Saturation 97% 03/31/2019 3:00 PM EDT Inhaled Oxygen Concentration - - Weight 71.7 kg (158 lb) 03/31/2019 12:34 PM EDT Height 155.6 cm (5' 1.25) 03/31/2019 12:34 PM E DT Body Mass Index 29.61 03/31/2019 12:34 PM EDT documented in this encounter Discharge Instructions * Discharge Instructions* Luis Menard, RN - 03/31/2019 2:11 PM EDT Please call [phone] before 8pm Mon-Fri with problems, questions or concerns. If you call after 8pm or on weekends, call the Hospital at [phone] and ask to speak to the Clinical Biostatistics Director mounter saxophones and the road mixer operator will contact that person for you. ? * Attachments The following attachments cannot be sent through Care Everywhere. * EGD (Upper Endoscopy): Post-op (Norwegian) * Colonoscopy: Post-op (Norwegian) documented in this encounter Medications at Time of Discharge Medication Sig Dispensed Refills Start Date End Date levalbuterol (XOPENEX HFA) 45 mcg/actuation HFA Aerosol InhalerIndications:Mild intermittent asthma without complication Inhale 1-2 puffs into the lungs every 4 hours as needed. 1 Inhaler 3 04/18/2016 pantoprazole (PROTONIX) 40 mg Tablet, Delayed Release (E.C.) Take 1 tablet by mouth daily. 90 tablet 3 01/09/2019 06/04/2019 sertraline (ZOLOFT) 100 mg TabletIndications:anxie ty with depression Take 1 tablet by mouth daily. Indications: Anxiety with Depression 90 tablet 3 08/01/2018 03/24/2020 naproxen sodium (ANAPROX) 550 mg TabletIndications:NEENA (juvenile idiopathic arthritis) Take 1 tablet by mouth 2 times daily as needed. 60 tablet 2 04/16/2018 09/23/2019 oxybutynin (DITROPAN XL) 10 mg Tablet Extended Rel 24 hrIndications:Urinary incontinence, urge Take 1 tablet by mouth daily. 90 tablet 3 03/27/2018 03/24/2020 buPROPion (WELLBUTRIN XL) 150 mg Tablet Extended Release 24 hrIndications:anxiety with depression Take 1 tablet by mouth every morning. Indications: Anxiety with Depression 90 tablet 03/06/2018 03/24/2020 cetirizine (ZYRTEC) 10 mg Tablet Take 1 tablet by mouth daily. 90 tablet 3 03/06/2018 06/04/2019 documented as of this encounter H&P Notes * Iker Moya M - 03/31/2019 12:38 PM EDT Gastroenterology and Hepatology Pre-Procedure History and Physical Exam Procedure: EGD & Colonoscopy Indication: dyspepsia and alternating bowel habits Patient Active Problem List Diagnosis Code ??? PTSD (post-traumatic stress disorder) F43.10 ??? NEENA (juvenile idiopathic arthritis) M08.90 ??? Encounter for preventive care Z00.00 ??? 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 Abnormal Pap smear of cervix R87.619 ??? Asthma J45.909 ??? Myocardial infarct I21.9 ??? Rheumatoid arthritis M06.9 ??? Thyroid mass with hyperthyroidism E07.9 ??? 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 Fibromyalgia M79.7 ??? Gastroesophageal reflux K21.9 ??? Mixed stress and urge urinary incontinence N39.46 EXAM: HEENT: Airway examined, oropharynx clear Mallampati Score: II (soft palate, uvula, fauces visible) LUNGS: Clear to auscultation HEART: Regular rate and rhythm, normal S1, S2 ABDOMEN: Normal bowel sounds, soft, non tender, non distended A/P Proceed with the planned endoscopic procedure. ASA 2 - Patient with mild systemic disease with no functional limitations Sedation Plan: moderate (conscious sedation) Risks and benefits of the procedure explained to the patient. Consent signed. Please see separate consult note for further details. documented in this encounter Plan of Treatment Upcoming Encounters Date Type Department Care Team (Late st Contact Info) Description 04/07/2024 3:20 PM EDT Office Visit Dermatology at [facility] [address] [place] [address] Dayanna Ramírez MD [facility] [place] [address] documented as of this encounter Procedures Procedure Name Priority Date/Time Associated Diagnosis Comments SPECIMEN TO PATHOLOGY Routine 03/31/2019 1:55 PM EDT SURGICAL PATHOLOGY REPORT Routine 03/31/2019 1:24 PM EDT Upper Gi Endoscopy, Biopsy (61557) 03/31/2019 12:55 PM EDT Dyspepsia Constipation, unspecified constipation type Colonoscopy, Diagnostic (13572) 03/31/2019 12:55 PM EDT Dyspepsia Constipation, unspecified constipation type Upper GI Endoscopy, Diagnostic (30649) 03/31/2019 12:55 PM EDT Dyspepsia Constipation, unspecified constipation type UPPER GI ENDOSCOPY Routine 03/31/2019 12 :40 PM EDT COLONOSCOPY Routine 03/31/2019 12:31 PM EDT documented in this encounter Results * Specimen to Pathology (03/31/2019 1:55 PM EDT) AP Specimen 03/31/2019 1:55 PM EDT 03/31/2019 1:[address] [facility] - 03/31/2019 1:55 PM EDT Specimen requisition ordered. ??Separate Pathology report to follow Layne Irwin MD PATHOLOGY/CYTOLOGY O RDERABLES [facility] [place] [place] [address] * Surgical Pathology Report (03/31/2019 1:24 PM EDT) Final Diagnosis [id number] ? Location: 4T; EA08; A The signing pathologist has (i) examined the relevant preparation(s) for the specimen(s) and (ii) rendered or confirmed the diagnosis(es). . ?Surgical Pathology DIAGNOSIS Gastric erosions, ??biopsy: Gastric antral gland mucosa with mild nonspecific reactive gastropathy. Gastric fundic mucosa within normal limits. No H. pylori-like microorganism is seen. Electronically signed by: ??Coby RIVERA, Tello Johnson Verified: ??04/02/2019 ?Pathologist Performed at: ??-[facility] [place]. [place], [place], [place] CLINICAL INFORMATION Specimen Submitted: A - Gastric erosions Clinical History and Diagnosis: Dyspepsia SPECIMEN PROCESSING A - Labeled/Fixative: Gastric erosions, formalin. Quantity/Size: Four, 0.2-0.4 cm. Tissue Description: Soft, bryant-pink tissues. Sections/Processi ng: Submitted en toto ??in 1 cassette labeled A1. ??pps 04/02/2019 10:[address] [facility] GI Biopsy 03/31/2019 1:24 PM EDT 03/31/2019 1:24 PM EDT Layne Irwin MD PATHOLOGY/CYTOLOGY O RDERACHARO [facility] [place] [address] * UPPER GI ENDOSCOPY (03/31/2019 12:40 PM EDT) UPPER GI ENDOSCOPY [facility] Endoscopy Procedure Date: 03/31/2019 12:40 PM ? Patient Name: Yumiko De Leon ? Date of : 1970 ? Age: 49 ? Order #: [id number] ? Instrument Name: [id number] ? Procedure: ? Upper GI endoscopy Indications: ? Dyspepsia Providers: ? Layne Irwin MD, Emily Reyna RN, Rahul ? Sonal Mcginnis, Clinical Research Nurse, Iker ? Jake Jerez MD: ?Billie Ly Medicines: ? Midazolam 4 mg IV, Fentanyl 150 ? micrograms IV Complications: ? No immediate [...] and ? adverse medication reactions. The ? Endoscope was introduced through the ? mouth, and advanced to the third part ? of duodenum. The patient tolerated ? the procedure well. The upper GI ? endoscopy was accomplished without ? difficulty. The patient tolerated the ? procedure fairly well. ? Findings: ? The examined esophagus was normal. ? A few localized small erosions were found in the ? gastric antrum. Biopsies were taken with a cold ? forceps for histology. ? The examined duodenum was normal. ? Moderate Sedation: ? I was present during the intraservice time as ? documented by the sedation RN. Impression: ?- Normal esophagus. ? - Erosive gastropathy. Biopsied. ? - Normal examined duodenum. Recommendation: ?Follow up in clinic as planned. ? Await path. ? Attending Participation: ? I was present and participated during the entire ? procedure, including non-cooper portions. ? I was present during the intraservice time as ? documented by the sedation RN. ? Layne Irwin MD 03/31/2019 1:32:47 PM This report has been signed electronically. Number of Addenda: 0 Note Initiated On: 03/31/2019 12:40 PM [facility] 03/31/2019 12:4 0 PM EDT Billie Ly MD GENERAL SURGICAL ORD ERABLES [facility] * COLONOSCOPY (03/31/2019 12:31 PM EDT) COLONOSCOPY [facility] Endoscopy Procedure Date: 03/31/2019 12:31 PM ? Patient Name: Yumiko De Leon ? Date of : 1970 ? Age: 49 ? Order #: [id number] ? Instrument Name: [id number] ? Procedure: ? Colonoscopy Indications: ? Change in bowel habits Providers: ? Layne Irwin MD, Emily Reyna RN, Rahul ? Sonal Mcginnis, Clinical Research Nurse, Iker ? Jake Moya Referring MD: ?Billie Shocoy Medicines: ? Midazolam 2 mg IV, Fentanyl [...] Ly MD GENERAL SURGICAL ORD ERABLES [employer] documented in this encounter Visit Diagnoses Not on filedocumented in this encounter Administered Medications Inactive Administered Medications - up to 3 most recent administrations Medication Order MAR Action Action Date Dose Rate Site lactated ringers infusion 50 mL/hr, Intravenous, CONTINUOUS, Starting on Sun03/31/19 at 1300, Until Sun03/31/19 at 1521, Endoscopy (Day of Procedure) New Bag 03/31/2019 12:48 PM EDT 50 mL/hr 50 mL/hr ondansetron (ZOFRAN) injection 4 mg 4 mg, Intravenous, EVERY 8 HOURS PRN, Starting on Sun03/31/19 at 1413, Until Sun03/31/19 at 1521, Nausea, Endoscopy (Day of Procedure), Routine Given 03/31/2019 2:14 PM EDT 4 mg documented in this encounter Active and Recently Administered Medications Times are shown in EDT. Continuous Medication Order 03/29/2019 03/30/2019 03/31/2019 lactated ringers infusion (CANCELED) 50 mL/hr, Intravenous, CONTINUOUS, Starting on Sun03/31/19 at 1300, Until Sun03/31/19 at 1521, Endoscopy (Day of Procedure) 1248 (New Bag - Prov ider: Stephenie Gurrola RN) PRN Medication Order 03/29/2019 03/30/2019 03/31/2019 fentaNYL 50 mcg/mL multi-dose injection (CANCELED) ONCE PRN, Starting on Sun03/31/19 at 1307, Until Sun03/31/19 at 1723, Intra-Operative (Intra-Procedure), Routine 1307 (Given - Provid er: Emily Reyna RN)1309 (Given - Provider: Emily Reyna RN)1311 (Given - Provider: Emily Reyna RN)1333 (Given - Provider: Emily Reyna RN - Comment: colo sedation)1347 (Given - Provider: Emily Reyna RN)1353 (Given - Provider: Emily Reyna RN) midazolam (PF) (VERSED) multi-dose injection (CANCELED) ONCE PRN, Starting on Sun03/31/19 at 1307, Until Sun03/31/19 at 1723, Intra-Operative (Intra-Procedure), Routine 1307 (Given - Provid er: Emily Reyna RN)1309 (Given - Provider: Emily Reyna RN)1311 (Given - Provider: Emily Reyna RN)1317 (Given - Provider: Emily Reyna RN)1333 (Given - Provider: Emily Reyna RN - Comment: colo sedation)1347 (Given - Provider: Emily Reyna RN) ondansetron (ZOFRAN) injection 4 mg (CANCELED) 4 mg, Intravenous, EVERY 8 HOURS PRN, Starting on Sun03/31/19 at 1413, Until Sun03/31/19 at 1521, Nausea, Endoscopy (Day of Procedure), Routine 1414 (Given - Provid er: Emily Reyna RN) documented in this encounter Care Teams Patient Flow Coordinator Relationship Specialty Start Date End Date Billie Ly MD [facility] [address] [facility] [address] PCP - General Family Medicine 02/20/19 03/20/21 documented as of this encounter
--- OUTSIDE RECORDS SUMMARY | 2024-03-20 22:08 | XMS_ITS | Encounter Summary ---
Author Organization [facility] Address [facility] [place] [address] Care Team Providers Care Tire Debeader Name Role Phone Gita Huang MD Primary Care Provider [phone] Reason for Visit * Reason Comments Follow-up naima marie Encounter Details Date Type Department Care Team (Late st Contact Info) Description 12/03/2017 10:00 AM EDT Office Visit [place] [address] Aunrag Gonzalez MD [facility] [place] [address] Abdominal pannus Social History Tobacco Use Types Packs/Day Years [...] Sign Reading Time Taken Comments Blood Pressure - - Pulse - - Temperature - - Respiratory Rate - - Oxygen Saturation - - Inhaled Oxygen Concentration - - Weight 68.9 kg (151 lb 12.8 oz) 018 10:01 AM EDT Height 154.9 cm (5' 1) 12/03/2017 10:0 1 AM EDT Body Mass Index 28.68 12/03/2017 10:01 AM EDT documented in this encounter Progress Notes * Anurag Gonzalez MD - 12/03/2017 10:00 AM EDT Plastic Surgery Follow Up Note CC: Abdominal pannus HPI: Patient reports that she is not doing well. She continues to have challenges with her weight. She has been consistently trying to loose weight but hasn't had a lot of success. She states that she has joined a gym, has bought an exercise bike and has been using diet pills to help but has had nosuccess. At today's visit she weighs 151 pounds. Originally, when she first saw use she weighed about 158 pounds. She was hopeful that insurance would pay for her to have her panniculectomy. Examination: She was well oriented and asked appropriate questions throughout the visit. Abdomen: Grade 1: Panniculus barely covers the hairline of the mons pubis but not the genitalia Hernia palpable no Diastasis: no Active rash or intertrigo: no Impression: Yumiko Chang is here for re-evaluation of her abdominal pannus. Discussed with the patient that she may proceed with surgery but insurance would not pay for this. I discussed with the patient that in order for insurance to pay she would have to loose in total about 150 pounds. Patienthas decided to no proceed with surgical intervention at this time. Plan: 1. PRN with Dr. Gonzalez. I, Valorie Bergman have performed the documentation for this encounter in the presence of and acting as a scribe for ANURAG GONZALEZ MD. I performed the services which were documented by the scribe, and I agree with the accuracy of the documentation in this encounter. ANURAG GONZALEZ MD documented in this encounter Plan of Treatment Upcoming Encounters Date Type Department Care Team (Late st Contact Info) Description 04/07/2024 3:20 PM EDT Office Visit Dermatology at [facility] [address] [place] [id number] Dayanna Ramírez MD [facility] DR [facility] [place] [address] documented as of this encounter Visit Diagnoses Diagnosis Abdominal pannus Localized adiposity documented in this encounter Care Teams Tire Debeader Relationship Specialty Start Date End Date Gita Huang MD [facility] [address] [facility] [place] [address] PCP - General Family Medicine 11/13/17 02/19/19 documented as of this encounter
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
--- OUTSIDE RECORDS SUMMARY | 2024-03-20 22:08 | XMS_ITS | Encounter Summary ---
Author Organization [facility] Address [facility] [place] [address] Care Team Providers Care Sleeping Car Porter Name Role Phone Graciela La Primary Care Provider + [phone] Encounter Details Date Type Department Care Team (Late st Contact Info) Description 06/18/2017 Telephone Internal Medicine at [facility] [address] [place] [phone] Tram Ac RN Social History Tobacco Use Types Packs/Day [...] encounter Miscellaneous Notes * Telephone Encounter - Tram Ac RN - 06/18/2017 5:05 PM EST Patient identified by full name and . Message from Abby Guaman APRN relayed to patient regarding stress test results. Patient confirmed understanding of message communicated. She was pleased with results. Patient has no further questions at this time. * Telephone Encounter - Tram Ac RN - 06/18/2017 5:04 PM EST ----- Message from Abby Guaman APRN sent at 06/18/2017 3:53 PM EST ----- Please call Yumiko and let her know that her stress test results are back. They are normal. No sign of cardiac ischemia. Good news. Thank you. Abby Guaman APRN, LAUNDRY TUB MAKER-BC documented in this encounter Plan of Treatment Upcoming Encounters Date Type Department Care Team (Late st Contact Info) Description 04/07/2024 3:20 PM EDT Office Visit Dermatology at [facility] [address] [place] [phone] Dayanna Ramírez MD [facility] [address] [place] [address] documented as of this encounter Visit Diagnoses Not on filedocumented in this encounter Care Teams Sleeping Car Porter Relationship Specialty Start Date End Date Graciela aL PA [facility] [place] [address] PCP - General Family Medicine 06/20/17 11/12/17 documented as of this encounter
--- OUTSIDE RECORDS SUMMARY | 2024-03-20 22:08 | XMS_ITS | Encounter Summary ---
Author Organization [facility] [place] [address] Care Team Providers Care Glass Breaker Name Role Phone Gita Huang MD Primary Care Provider [phone] Encounter Details Date Type Department Care Team (Late st Contact Info) Description 07/17/2018 Telephone Endocrinology at [facility] [phone] Ivelisse Benitez LPN Social History Tobacco Use Types Packs/Day Years [...] encounter Miscellaneous Notes * Telephone Encounter - Ivelisse Benitez LPN - 07/17/2018 11:42 AM EST Patient called at mobile number, and read Dr. Abdullahi's message below. She is thankful, and in agreement with plan of care. Yumiko Chang R - 07/16/18 More Detail >> Linda Abdullahi MD Sent: SunJuly 16, 2018 ??3:40 PM To: Ivelisse Benitez LPN ?? Message Please let Yumiko (rhea Dowd) know that her thyroid levels are trending in the right direction, and are almost normalized. Let's recheck TFTs in another month. Linda ----- Message ----- From: [facility] Sent: 07/16/2018 ?? 2:08 PM To: Linda Abdullahi MD documented in this encounter Plan of Treatment Upcoming Encounters Date Type Department Care Team (Late st Contact Info) Description 04/07/2024 3:20 PM EDT Office Visit Dermatology at [facility] [address] [place] [address] Dayanna Ramírez MD [facility] [place] [address] documented as of this encounter Visit Diagnoses Not on filedocumented in this encounter Care Teams Glass Breaker Relationship Specialty Start Date End Date Gita Huang MD [facility] [address] PCP - General Family Medicine 11/13/17 02/19/19 documented as of this encounter
--- OUTSIDE RECORDS SUMMARY | 2024-03-20 22:08 | XMS_ITS | Encounter Summary ---
Author Organization [facility]ly [facility] [place] [address] Care Team Providers Care Space Engineer Name Role Phone Billie Ly MD Primary Care Provider [phone] Encounter Details Date Type Department Care Team (Late st Contact Info) Description 06/04/2019 11:00 AM EDT Office [place] [id number] Juliette Garza APRN [facility] [place] [address] Dyspepsia Social History Tobacco Use Types Packs/Day Years [...] Sign Reading Time Taken Comments Blood Pressure 113/73 06/04/2019 11:00 AM EDT Pulse 68 06/04/2019 11:00 AM EDT Temperature - - Respiratory Rate - - Oxygen Saturation - - Inhaled Oxygen Concentration - - Weight 74.6 kg (164 lb 6.4 oz) 06/04/2019 11:00 AM EDT Height 155.6 cm (5' 1.25) 06/04/2019 11:00 AM E DT Body Mass Index 30.81 06/04/2019 11:00 AM EDT documented in this encounter Progress Notes * Juliette Garza, RN - 06/04/2019 11:00 AM EDT _28___minutes of this__35__-minute visit were spent in face to face discussion and/or counseling the patient, regarding symptoms and treatment options as detailed below. The patient is here for follow up regarding gi testing. Egd: The examined esophagus was normal. ?A few localized small erosions were found in the ?gastric antrum. Biopsies were taken with a cold ?forceps for histology. ?The examined duodenum was normal. ? Moderate Sedation: ?I was present during the intraservice time as ?documented by the sedation RN. Impression: ?- Normal esophagus. ?- Erosive gastropathy. Biopsied. ?- Normal examined duodenum. Recommendation: ?Follow up in clinic as planned. ?Await path. [place]: The colon (entire examined portion) appeared normal. ?The terminal ileum appeared normal. ? Moderate Sedation: ?I was present during the intraservice time as ?documented by the sedation RN. Impression: ?- The entire examined colon is normal. ?- The examined portion of the ileum ?was normal. ?- No specimens collected. Recommendation: ?Follow up in clinic. ?Repeat study in 10 years Bx: Gastric erosions, ??biopsy: Gastric antral gland mucosa with mild nonspecific reactive gastropathy. Gastric fundic mucosa within normal limits. No H. pylori-like microorganism is seen. After the testing the patient experienced significant stomach pain. Also, did not renew ppi. Therefore she ran out of the ppi. She has been off ppi therapy for three weeks. Just in the lat 10 days, her sx have been improving since egd. Also, pt under a significant amount of stress which attributes to her sx. No dysphagia or vomiting. Few sx of throat burn, lava in throat. but getting better. At times regurgitation. Night time sx improving. When she was taking the protonix her sx did improve. Tolerating diet. Weight stable. Is avoiding aggravating foods. Unable to afford low fodmap diet. Doing alternatives. Reviewed diet. She is having bread, pastry and ice cream, as it is gentle on her stomach. Chronic use of naproxen. since age 17. Plan: 1.Gerd/dyspepsia: protonix 40mg bid, 30 minutes before breakfast and supper. If supper time does not work then qhs. gerd diet and lifestyle modifications. Minimize or avoid nsaids. If taking nsaids, continue with ppi therapy. 2. Pt to notify gi of progress documented in this encounter Plan of Treatment Upcoming Encounters Date Type Department Care Team (Late st Contact Info) Description 04/07/2024 3:20 PM EDT Office Visit Dermatology at [facility] [address] [place] [address] Dayanna Ramírez MD [facility] [place] [address] documented as of this encounter Visit Diagnoses Diagnosis Dyspepsia Dyspepsia and other specified disorders of function of stomach documented in this encounter Care Teams Space Engineer Relationship Specialty Start Date End Date Billie Ly MD [facility] [place] [place] [address] PCP - General Family Medicine 02/20/19 03/20/21 documented as of this encounter
--- OUTSIDE RECORDS SUMMARY | 2024-03-20 22:08 | XMS_ITS | Encounter Summary ---
Author Organization [facility] Address [facility] [place] [address] Care Team Providers Care Master Lay Out Specialist Name Role Phone Gita Huang MD Primary Care Provider [phone] Reason for Referral * Consultation (Routine) - Closed Specialty Diagnoses / Procedures Referred By Contac t Referred To Contact Gastroenterology Diagnoses Chronic abdominal pain Irregular bowel habits motility-chronic abd pain/irregular bowel habits Linda Abdullahi MD [facility] [place] [address] [facility] [place] [address] Referral ID Status Reason Start Date Expiration Date V isits Requested Visits Authorized [id number] Closed Consult, Test & Treat 12/19/2018 12/19/2019 1 1 * Consultation (Routine) - Closed Specialty Diagnoses / Procedures Referred By Contac t Referred To Contact Otolaryngology Diagnoses Throat burning Linda Abdullahi MD [facility] [place] [address] Michelle Watkins APRN [facility] [place] [address] Referral ID Status Reason Start Date Expiration Date V isits Requested Visits Authorized [id number] Closed Consult, Test & Treat 12/19/2018 12/19/2019 1 1 Encounter Details Date Type Department Care Team (Late st Contact Info) Description 12/19/2018 2:00 PM EDT Office [place] [address] Linda Abdullahi MD [facility] [place] [address] Throat burning; Chronic abdominal pain; Irregular bowel habits Social History Tobacco Use Types Packs/Day Years [...] Sign Reading Time Taken Comments Blood Pressure 121/70 12/19/2018 2:07 PM EDT Pulse 72 12/19/2018 2:07 PM EDT Temperature - - Respiratory Rate - - Oxygen Saturation - - Inhaled Oxygen Concentration - - Weight 75.3 kg (166 lb) 12/19/2018 2:07 PM EDT Height 156 cm (5' 1.4) 12/19/2018 2:07 PM EDT Body Mass Index 30.96 12/19/2018 2:07 PM EDT documented in this encounter Patient Instructions * Patient Instructions* Linda Abdullahi MD - 12/19/2018 2:00 PM EDT Component Latest Ref Rng & Units 12/19/2018 11/13/2018 09/04/2018 07/16/2018 T3, Free 2.0 - 4.4 pg/mL 2.9 2.6 2.6 2.2 T3, Total 75 - 170 ng/dL 109 103 108 88 Free T4 0.93 - 1.70 ng/dL 1.39 1.20 1.08 0.96 TSH 0.27 - 4.20 mcIU/mL 2.27 3.04 4.83 (H) 4.67 (H) TSI <=0.55 IU/L Component Latest Ref Rng & Units 06/12/2018 T3, Free 2.0 - 4.4 pg/mL 2.2 T3, Total 75 - 170 ng/dL 81 Free T4 0.93 - 1.70 ng/dL 0.85 (L) TSH 0.27 - 4.20 mcIU/mL 6.24 (H) TSI <=0.55 IU/L <0.10 documented in this encounter Progress Notes * Linda Abdullahi MD - 12/19/2018 2:00 PM EDT Endocrinology Follow-up visit RFV: follow-up of thyroid hormone status s/p a bout of self-limited thyroiditis HISTORY OF PRESENT ILLNESS: Ms. Yumiko Chang is a 48 y.o. year old lady with history significant for rheumatoid arthritis, fibromyalgia, and Suzy-Danlos type 3, whom I saw for a consultation about 6 months ago for hyperthyroidism and lower anterior neck discomfort. TFT recheck that day showed that her TSH had become elevated, which was suggestive of recovery phase of a subacute thyroiditis. Her TFTs subsequently trendedaccording to the expected pattern for a recovery phase of a subacute thyroiditis over the followingseveral months. She had a set of TFTs drawn 1 month ago and today that were normal, in the euthyroid range. She is still having concerns about a number of symptoms, which she is worried may represent a thyroid problem. 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 Only sees light through her L eye - everything else is a blur. She has felt like her R eye has been protruding, feels very dry and gritty. Her iron deficiency anemia in her adolesence occurred because she thinks she had anorexia nervosa in high school (not officially diagnosed but she suspects this may have been the case). Both of theseissues had resolved many years ago. Component Latest Ref Rng & Units 12/19/2018 11/13/2018 09/04/2018 07/16/2018 T3, Free 2.0 - 4.4 pg/mL 2.9 2.6 2.6 2.2 T3, Total 75 - 170 ng/dL 109 103 108 88 Free T4 0.93 - 1.70 ng/dL 1.39 1.20 1.08 0.96 TSH 0.27 - 4.20 mcIU/mL 2.27 3.04 4.83 (H) 4.67 (H) TSI <=0.55 IU/L Component Latest Ref Rng & Units 06/12/2018 T3, Free 2.0 - 4.4 pg/mL 2.2 T3, Total 75 - 170 ng/dL 81 Free T4 0.93 - 1.70 ng/dL 0.85 (L) TSH 0.27 - 4.20 mcIU/mL 6.24 (H) TSI <=0.55 IU/L <0.10 PAST MEDICAL HISTORY: Patient Active Problem List Diagnosis Date Noted ??? Gastroesophageal reflux 02/11/2016 Priority: High ??? Fibromyalgia 09/17/2015 Priority: High ??? Suzy-Danlos syndrome type III 09/09/2015 Priority: High ??? Asthma Priority: High ??? Rheumatoid arthritis Priority: High ??? Abnormal Pap smear of cervix 04/28/2015 Priority: Medium ??? PTSD (post-traumatic stress disorder) 01/01/2009 Priority: Medium ??? HPV in female 04/28/2015 Priority: Low ??? Encounter for preventive care 03/03/2015 Priority: Low ??? NEENA (juvenile idiopathic arthritis) 07/19/2012 Priority: Low ??? Mixed stress and urge urinary incontinence 01/22/2018 ??? Thyroid mass with hyperthyroidism 05/12/2015 ??? Myocardial infarct MEDICATIONS: Medications 12/19/18 1410 Medication Sig Taking? naproxen sodium (ANAPROX) 550 mg Tablet Take 1 tablet by mouth 2 times daily as needed. Yes buPROPion (WELLBUTRIN XL) 150 mg Tablet Extended Release 24 hr Take 1 tablet by mouth every morning. Indications: Anxiety with Depression Yes cetirizine (ZYRTEC) 10 mg Tablet Take 1 tablet by mouth daily. Yes levalbuterol (XOPENEX HFA) 45 mcg/actuation HFA Aerosol Inhaler Inhale 1-2 puffs into the lungs every 4 hours as needed. Yes sertraline (ZOLOFT) 100 mg Tablet Take 1 tablet by mouth daily. Indications: Anxiety with Depression Patient not taking: Reported on 12/19/2018 oxybutynin (DITROPAN XL) 10 mg Tablet Extended Rel 24 hr Take 1 tablet by mouth daily. Patient not taking: Reported on 12/19/2018 ALLERGIES: Allergies Allergen Reactions ??? Latex Rash BURNING/ THROAT CLOSES ??? Azithromycin Anaphylaxis ??? Penicillins Anaphylaxis ??? Epinephrine Other (See Comments) fast heart rate ??? Influenza Virus Vaccines Declines based on prior fevers, fatigue. SOCIAL HISTORY: Social History Tobacco Use Smoking Status Never Smoker Smokeless Tobacco Never Used FAMILY HISTORY: Family History Relation Problem Age of Onset ??? Brother Asthma Heart Disease ??? Maternal Aunt Breast Cancer great aunts ??? Maternal Grandmother Breast Cancer Coronary Artery Disease Ovarian Cancer unclear history, perhaps stomach? Maternal Uncle Coronary Artery Disease Heart Defect ??? Mother Asthma Heart Disease ??? Neg Hx Alcohol Abuse Substance Abuse mother and maternal uncle had eyes that protruded prominently in older age. She doesn't know if they had thyroid disease bc they didn't talk about their health. She has a cousin that was recently diagnosed with thyroid cancer, has a large goiter, apparently is nonoperable. REVIEW OF SYSTEMS: All 12 systems reviewed and negative except as noted per HPI. PHYSICAL EXAM: Vitals Office Visit from 12/19/2018 in Endocrinology at [place] Weight 75.3 kg (166 lb) Height 156 cm (5' 1.4) BSA (Calculated - sq m) 1.81 sq meters BMI (Calculated) 30.95 Heart Rate 72 BP 121/70 Gen: NAD, AAOx3, speaking full sentences, slightly anxious demeanor, average habitus Skin: warm and dry Eyes: PERRL, EOMI, anicteric sclerae without injection, no proptosis or lid lag ENT: moist oral mucosa Neck: no thyromegaly, no thyroid nodules, no thyroid bruit, no lymphadenopathy MSK: 5/5 strength in all muscle groups of the upper and lower extremities Neuro: 2+ biceps and patellar DTRs, no clonus, no delay of the relaxation phase, no tremor. ASSESSMENT: 48 yo F with hx rheumatologic disease (rheumatoid arthritis, fibromyalgia, Suzy-Danlos), who experienced a bout of subacute thyroiditis that started last Fall 2017 with a hyperthyroid phase that lasted about 4-6 weeks and by the time she saw me for consultation she had already enteredthe recovery phase with an elevated TSH in the 6-range. Since then she's had 4 more sets of TFTs which go along with the evolution of the recovery phase of a subacute thyroiditis and by November 2018 her TFTs had normalized. Today her TFTs look mid-normal. She is still having multiple nonspecific symptoms, including weight gain, bloating, constipation, stomach discomfort. She's also had discomfort in her throat, which appear to be more upper throat andburning in her throat rather than around the thyroid region. Will refer her to ENT to further evaluate these symptoms (possibly GERD, perhaps a laryngeal or pharyngeal etiology?). Weight gain is a nonspecific symptom that can have many other causes. She also mentioned shivering and sweats while sheis sleeping - this requires further evaluation for non-thyroidal causes by her PCP - ID and hematologic causes ought to be evaluated for, and also possibly to consider a GI referral if ENT evaluationis unrevealing. PLAN: --referral to ENT --Recommend that PCP evaluate for non-thyroidal etiologies of her symptoms. --return prn for new endocrine concerns. LINDA ABDULLAHI MD [employer] patients Section of Endocrinology [facility] documented in this encounter Plan of Treatment Upcoming Encounters Date Type Department Care Team (Late st Contact Info) Description 04/07/2024 3:20 PM EDT Office Visit Dermatology at [address] [place] [address] Dayanna Ramírez MD [facility] [address] [place] [address] Scheduled Referrals Name Type Priority Associated Diagnoses Order Schedule Referral to ENT Outpatient Referral Routine Throat burning Ordered: 12/19/2018 Referral to Gastroenterology Outpatient Referral Routine Chronic abdominal pain Irregular bowel habits Ordered: 12/19/2018 documented as of this encounter Visit Diagnoses Diagnosis Throat burning Throat pain Chronic abdominal pain Abdominal pain, unspecified site Irregular bowel habits Other specified disorder of intestines documented in this encounter Care Teams Master Lay Out Specialist Relationship Specialty Start Date End Date Gita Huang MD [facility] [address] [place] [address] PCP - General Family Medicine 11/13/17 02/19/19 documented as of this encounter
--- OUTSIDE RECORDS SUMMARY | 2024-03-20 22:08 | XMS_ITS | Encounter Summary ---
[place] [address] Care Team Providers Care Hedge Fund Accountant Name Role Phone Billie Ly MD Primary Care Provider [phone] Reason for Visit * Reason Onset Date Comments Medication Refill 09/18/2019 Encounter Details Date Type Department Care Team (Late st Contact Info) Description 09/18/2019 Telephone [place] [phone] Miguel Angel Huffman RN Medication Refill Social History Tobacco Use Types Packs/Day Years [...] encounter Miscellaneous Notes * Telephone Encounter - Miguel Angel Huffman RN - 09/18/2019 2:13 PM EST Yumiko calls to ask for Naprosyn to be refilled as she reports she is having pain. RTC to Yumiko and advised she has not been seen here since 2016. Yumiko reports that Dr. Singer told her that she could have a lifetime supply of Naprosyn without coming in for an appointment. Last seen by Dr. Singer in 2006. Advised I will ask information systems specialist provider but will not cue up Rx for Naprosyn unless asked to do so. Eric Singer MD sent to Miguel Angel Huffman RN Caller: Unspecified (Yesterday, ??1:21 PM) ?? Should speak with her current PCP LM for Yumiko to follow up with her PCP. documented in this encounter Plan of Treatment Upcoming Encounters Date Type Department Care Team (Late st Contact Info) Description 04/07/2024 3:20 PM EDT Office Visit Dermatology at [facility] [address] [place] [address] Dayanna Ramírez MD [facility] [place] [address] documented as of this encounter Visit Diagnoses Not on filedocumented in this encounter Care Teams Hedge Fund Accountant Relationship Specialty Start Date End Date Billie Ly MD [facility] [place] [address] PCP - General Family Medicine 02/20/19 03/20/21 documented as of this encounter
--- OUTSIDE RECORDS SUMMARY | 2024-03-20 22:08 | XMS_ITS | Encounter Summary ---
Author Organization Count Includes [facility] Address [facility] [place] [address] Care Team Providers Care Senior Economist Name Role Phone Gita Huang MD Primary Care Provider [phone] Encounter Details Date Type Department Care Team (Late st Contact Info) Description 04/16/2018 3:36 PM EDT - 04/16/2018 3:37 PM EDT Hospital Encounter XRay at [address] [place] [address] Gita Huang MD [facility] [address] [facility] [place] [address] Cervicalgia Discharge Disposition: Home Social History Tobacco Use [...] hours as needed. 1 Inhaler 3 04/18/2016 naproxen sodium (ANAPROX) 550 mg TabletIndications:NEENA (juvenile [...] Anxiety with Depression 90 tablet 03/06/2018 03/24/2020 sertraline (ZOLOFT) 100 mg TabletIndications:anxie ty with depression Take 1 tablet by mouth daily. Indications: Anxiety with Depression 90 tablet 03/06/2018 08/01/2018 cetirizine (ZYRTEC) 10 mg Tablet Take 1 tablet by mouth daily. 90 tablet 3 03/06/2018 06/04/2019 documented as of this encounter Plan of Treatment Upcoming Encounters Date Type Department Care Team (Late st Contact Info) Description 04/07/2024 3:20 PM EDT Office Visit Dermatology at [address] [address] Dayanna Ramírez MD [facility] DR [facility] [place] [address] documented as of this encounter Procedures Procedure Name Priority Date/Time Associated Diagnosis Comments XR NECK SOFT TISSUE Routine 04/16/2018 3 :58 PM EDT Cervicalgia documented in this encounter Results * XR Neck Soft Tissue (Generic) (04/16/2018 [...] neck. Gita Huang MD IMG DX ORDERABLES documented in this encounter Visit Diagnoses Diagnosis Cervicalgia documented in this encounter Care Teams Senior Economist Relationship Specialty Start Date End Date Gita Huang MD [facility] [address] [facility] [place] [address] PCP - General Family Medicine 11/13/17 02/19/19 documented as of this encounter
--- OUTSIDE RECORDS SUMMARY | 2024-03-20 22:08 | XMS_ITS | Encounter Summary ---
Author Organization [facility] Address [facility] [place] [address] Care Team Providers Care Handkerchief Sample Clerk Name Role Phone Graciela La Primary Care Provider [phone] Reason for Visit * Reason Comments Advice Only panni consult * Consultation (Routine) - Closed Specialty Diagnoses / Procedures Referred By Contac t Referred To Contact Plastic Surgery Diagnoses Abdominal pannus Abby Guaman, JOAN [facility] [place] [address] [facility] [address], [place] [address] Referral ID Status Reason Start Date Expiration Date V isits Requested Visits Authorized [id number] Closed Consult, Test & Treat 06/05/2017 06/05/2018 1 1 Encounter Details Date Type Department Care Team (Late st Contact Info) Description 06/29/2017 11:00 AM EST Office Visit [place] [address] Anurag Koroma MD [facility] [place] [address] Abdominal pannus Social History Tobacco Use Types [...] - Inhaled Oxygen Concentration - - Weight 70 kg (154 lb 6.4 oz) 06/29/2017 11:19 AM EST Height 155.6 cm (5' 1.25) 06/29/2017 11:[address] per pt Body Mass Index 28.94 06/29/2017 11:19 AM EST documented in this encounter Progress Notes * Anurag Koroma MD - 06/29/2017 11:00 AM EST Plastic Surgery Consultation Note CC: Abdominal pannus HPI: Yumiko De Leon is a 47 y.o. female seen in my office today for consideration for abdominal panniculectomy referred by Abby Guaman. She reports that she has recently gained 30 pounds. She is very emotional at today's visit. She shares some of her personal struggles. Her self image is challenged. She was last seen in our office in 2009 for the same issue. She also has concerns about her strechmarks. She is at her heaviest weight which she reports is a 150 pounds. He lowest weight was 120 pounds. Past Medical History: Diagnosis Date ??? Ankle sprain ??? Asthma ??? Breast lump left ??? Fibromyalgia ??? Myocardial infarct ??? Rheumatoid arthritis Past Surgical History: Procedure Laterality Date ??? COLPOSCOPY 05/18/06 ??? CREATED BY INTERFACE 1999 IVF (twin gestation) ??? HYSTERECTOMY ??? LAPAROSCOPY 1987 Diagnostic laparoscopy for pelvic pain ??? LEEP 06/06/06 WINIFRED ??? PRO COLONOSCOPY, BIOPSY 09/07/2011 COLONOSCOPY FLEXIBLE, WITH BX performed by Desmond WHIPPLE at [facility] END[facility]COPY ??? PRO UPPER GI ENDOSCOPY, BIOPSY 09/07/2011 EGD WITH BIOPSY performed by Desmond WHIPPLE at [facility] ENDOSCOPY ??? TUBAL LIGATION 1989 Social History Social History ??? Marital status: Spouse name: N/A ??? Number of children: 5 ??? 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 Smoking status: Never Smoker ??? Smokeless tobacco: Never Used ??? Alcohol use No Comment: rare ??? Drug use: No ??? Sexual activity: Not on file Comment: deferred Other Topics Concern ??? Not on file Social History Narrative The patient has 5 children, 14 yo twin daughters and an autistic 25 yo son live with her currently.She has two older sons. ROS: HEENT, GI, /Renal, Psych, Card, Pulm, Endo, Heme, Immun, Neuro: negative Examination: Ht 155.6 cm (5' 1.25) Comment: per pt Wt 70 kg (154 lb 6.4 oz) LMP 05/13/2015 BMI 28.94 kg/m2 She was well oriented and asked appropriate questions throughout the visit. Abdomen: Grade 1: Panniculus barely covers the hairline of the mons pubis but not the genitalia Hernia palpable no Diastasis: no Active rash or intertrigo: no Impression: Yumiko De Leon is not a suitable candidate for panniculectomy at this time. We talked about the scars and risks from panniculectomy. She is aware that infection, delayed wound healing, seroma and numbness are possibilities. She has been provided with the [facility] patient information brochure, as well as their standard informed consent documents on both abdominoplasty, and panniculectomy. She has expressed a desire to proceed with surgical correction. Discussed that insurance will not pay for this procedure. Discussed with patient that it would be my recommendatopm that she loose more weight over the next 3 months and have a follow up for re discussion proceeding with a panniculectomy. Patient agrees. Insurance Guidelines [ ] Pannus grade 2 or higher [ ] Rashes; prescribed and documented treatment for any rashes that don???t respond to 3 - 6 monthsof treatment. [ ] If the weight has been lost due to gastric bypass, it must be 18 months s/p bariatric surgery [ ] Patient must be at goal weight and stable 6 months . Potential Surgical Grid Surgeon: Franci Duration: 2 hours Timeframe: Elective Coordinated with: None Procedure: Panniculectomy CPT: 44897 Surgical site: Abdomen Side: N/a Anesthesia: General Follow up: 7-10 days with NSO H&P: With PCP/Day of surgery Plan: 1. Follow up with Dr. Koroma in 3 months. documented in this encounter Plan of Treatment Upcoming Encounters Date Type Department Care Team (Late st Contact Info) Description 04/07/2024 3:20 PM EDT Office Visit Dermatology at [address] [place] [address] Dayanna Ramírez MD [facility] [address] [place] [address] Scheduled Referrals Name Type Priority Associated Diagnoses Orde r Schedule Referral to Plastic Surgery Outpatient Referral Routine Abdominal pannus Ordered: 06/05/2017 documented as of this encounter Visit Diagnoses Diagnosis Abdominal pannus Localized adiposity documented in this encounter Care Teams Handkerchief Sample Clerk Relationship Specialty Start Date End Date Graciela La PA [facility] [place] [address] PCP - General Family Medicine 06/20/17 11/12/17 documented as of this encounter
--- OUTSIDE RECORDS SUMMARY | 2024-03-20 22:08 | XMS_ITS | Encounter Summary ---
Author Organization [facility] Address [facility] [place] [address] Care Team Providers Care Leather Scraper Name Role Phone Merrill Huang MD Primary Care Provider [phone] Encounter Details Date Type Department Care Team (Late st Contact Info) Description 04/18/2018 12:37 PM EDT - 04/18/2018 11:59 PM EDT Hospital [place] [address] Merrill Huang MD [facility] [place] [address] Cervicalgia Discharge Disposition: Home Social History Tobacco [...] 3:20 PM EDT Office Visit Dermatology at [facility] [address] [place] [address] Dayanna Ramírez MD [facility] [address] [place] [address] documented as of this encounter Procedures Procedure Name Priority Date/Time Associated Diagnosis Comments US THYROID SOFT TISSUE Routine 04/18/2018 1:08 PM EDT Cervicalgia documented in this encounter Results * US Thyroid Soft Tissue (04/18/2018 1:08 PM EDT) Anatomical Region Laterality Modality Pelvis Ultrasound 04/18/2018 12:4 3 PM EDT Impressions 04/18/2018 2:06 PM EDT Ill-defined hypoechoic regions within the RIGHT and LEFT lobes of the thyroid, affecting the larger area within the mid RIGHT lobe. No discrete nodularity. The ill-defined appearance of these regions, and tenderness during exam could represent a nonspecific subacute thyroiditis with Graves' disease less likely. Please correlate with thyroid function tests and consider thyroid uptake scan. If these are normal then recommend follow-up ultrasound in 6 months I have personally reviewed the image(s) and the residents interpretation and agree with the findings, Mechelle Henry at 04/18/2018 1:57 PM ?Mechelle Henry MD Electronically Signed Final Report ?? 04/18/2018 02:05 pm Narrative 04/18/2018 2:06 PM EDT Thyroid ?(Signed Final 04/18/2018 02:05 pm) PATIENT INFO: ID #: ? [id number] ?: ??[birth year] (48 yrs) Name: ? AFTAB DE LEON ? Visit Date: 04/18/2018 12:43 pm PERFORMED BY: Performed By: ? Sophia Donaldson RDMS Attending: ?Carl RIVERA, Mechelle Yang Resident: ? Horacio RIVEAR, Ron Page Referred By: ?MERRILL HUANG Location: ? [place] SERVICE(S) PROVIDED: ??UTHYRD - Thyroid - [id number] ?[id number] INDICATIONS: ??neck mass or right RIGHT LOBE: ??Date ? L(cm) ?AP(cm) ?TV(cm) ??04/18/18 ? 4.9 ?1.8 ? 2.4 -------- Lesions: -------- ??# ?Date ?Location ?Description ??1 ?04/18/18 -------- Lesions: -------- ??# ?? Date ? L(cm) ? AP(cm) ?TV(cm) ?Vol(ml) ? % Chg ??1 ?? 04/18/18 ?? 3.7 ? 2.0 ? 1.4 ? 5.4 Comment: ?Ill defined hypoechoic region without hyperemia in ? the mid right lobe correlating with the palpable ? irregularity, which is tender on exam LEFT LOBE: ??Date ? L(cm) ?AP(cm) ?TV(cm) ??04/18/18 ? 4.7 ?1.8 ? 1.5 Comment: ?Ill defined hypoechoic region without hyperemia ? within the inferior left lobe. Normal texture of the ? remaining gland. -------- ISTHMUS: -------- Measurement: ?0.2 ??cm Comment: ?Normal texture Procedure Note Mechelle Henry MD - 04/18/2018 Thyroid (Signed Final 04/18/2018 02:05 pm) PATIENT INFO: ID #: [id number] : [birth year] (48 yrs) Name: AFTAB DE LEON Visit Date: 04/18/2018 12:43 pm PERFORMED BY: Performed By: Sophia Donaldson RDMS Attending: Mechelle Henry MD Resident: Ron Leonard MD Referred By: MERRILL HUANG Location: [place] SERVICE(S) PROVIDED: UTHYRD - Thyroid - [id number] INDICATIONS: neck mass or right RIGHT LOBE: Date L(cm) AP(cm) TV(cm) 04/18/18 4.9 1.8 2.4 -------- Lesions: -------- # Date Location Description 1 04/18/18 -------- Lesions: -------- # Date L(cm) AP(cm) TV(cm) Vol(ml) % Chg 1 04/18/18 3.7 2.0 1.4 5.4 Comment: Ill defined hypoechoic region without hyperemia in the mid right lobe correlating with the palpable irregularity, which is tender on exam LEFT LOBE: Date L(cm) AP(cm) TV(cm) 04/18/18 4.7 1.8 1.5 Comment: Ill defined hypoechoic region without hyperemia within the inferior left lobe. Normal texture of the remaining gland. -------- ISTHMUS: -------- Measurement: 0.2 cm Comment: Normal texture IMPRESSION Ill-defined hypoechoic regions within the RIGHT and LEFT lobes of the thyroid, affecting the larger area within the mid RIGHT lobe. No discrete nodularity. The ill-defined appearance of these regions, and tenderness during exam could represent a nonspecific subacute thyroiditis with Graves' disease less likely. Please correlate with thyroid function tests and consider thyroid uptake scan. If these are normal then recommend follow-up ultrasound in 6 months I have personally reviewed the image(s) and the residents interpretation and agree with the findings, Mechelle Henry at 04/18/2018 1:57 PM Mechelle Henry MD Electronically Signed Final Report 04/18/2018 02:05 pm Merrill Huang MD IMG US GEN ORDERABL ES documented in this encounter Visit Diagnoses Diagnosis Cervicalgia documented in this encounter Care Teams Leather Scraper Relationship Specialty Start Date End Date Merrill Huang MD [facility] [address] [facility] [place] [address] PCP - General Family Medicine 11/13/17 02/19/19 documented as of this encounter
--- OUTSIDE RECORDS SUMMARY | 2024-03-20 22:08 | XMS_ITS | Encounter Summary ---
Author Organization [facility] [place] [address] Care Team Providers Care Leasing Consultant Name Role Phone Gita Huang MD Primary Care Provider [phone] Reason for Visit * Reason Onset Date Comments Medication Refill 08/01/2018 Encounter Details Date Type Department Care Team (Late st Contact Info) Description 08/01/2018 Refill Family Medicine at [facility] [address] [place] [address] Gita Huang MD [facility] [address] [facility] [place] [place] [address] Social History Tobacco Use Types Packs/Day Years [...] 3:20 PM EDT Office Visit Dermatology at [facility] [address] [place] [address] Dayanna Ramírez MD [facility] [address] DENG-DERMATOLOGY [place], [place] [id number] documented as of this encounter Visit Diagnoses Not on filedocumented in this encounter Care Teams Leasing Consultant Relationship Specialty Start Date End Date Gita Huang MD [facility] [address] [place] [address] PCP - General Family Medicine 11/13/17 02/19/19 documented as of this encounter
--- OUTSIDE RECORDS SUMMARY | 2024-03-20 22:08 | XMS_ITS | Encounter Summary ---
Author Organization [facility] [place] [address] Care Team Providers Care Radiation Therapy Technician Name Role Phone Gita Huang MD Primary Care Provider [phone] Encounter Details Date Type Department Care Team (Late st Contact Info) Description 04/18/2018 12:25 PM EDT Laboratory Appointment Lab [address], [place] [phone] Thyroid mass Social History Tobacco Use Types Packs/Day Years [...] [facility] [address] [place] [address] Dayanna Ramírez MD [facility] [place] [address] documented as of this encounter Procedures Procedure Name Priority Date/Time Associated Diagnosis Comments THYROGLOBULIN ANTIBODY Routine 8 12:32 PM EDT Thyroid mass T3, FREE Routine 04/18/2018 12:32 PM EDT Thyroid mass TSH Routine 04/18/2018 12:32 PM EDT Thyroid mass T4, FREE Routine 04/18/2018 12:32 PM EDT Thyroid mass T4 TOTAL Routine 04/18/2018 12:32 PM EDT Thyroid mass documented in this encounter Results * (ABNORMAL) TSH (04/18/2018 12:32 PM EDT) Thyroid Stimulating Hormone 0.02(L) 0.27 - 4.20 mlU/ML [facility] Blood specimen (specimen) 04/18/2018 12:32 PM EDT 04/18/2018 12:37 PM EDT Narrative Resulting Agency Comment Spec In Lab Gita Huang MD CHEMISTRY ORDERABLE S Performing Organization Address [facility]/ZIP Co de Phone Number [facility] [place] [address] * (ABNORMAL) T3, free (04/18/2018 12:32 PM EDT) Free T3 5.0(H) 2.0 - 4.4 pg/mL [facility] Blood specimen (specimen) 04/18/2018 12:32 PM EDT 04/18/2018 12:37 PM EDT Narrative Resulting Agency Comment Spec In Lab Gita Huang MD CHEMISTRY ORDERABLE S [facility] [place] [address] * (ABNORMAL) T4 Total (04/18/2018 12:32 PM EDT) T4 Total 15.4(H) 5.1 - 10.8 mcg/dL [facility] Comment: Reference Range: Cord Blood: ??6.9-14.4 mcg/dL Females: ??7.2-14.2 mcg/dL Pediatric ranges: ??Interpret with caution-ranges have not been verified Blood specimen (specimen) 04/18/2018 12:32 PM EDT 04/18/2018 12:37 PM EDT Narrative Resulting Agency Comment Spec In Lab Gita Huang MD CHEMISTRY ORDERABLE S Performing Organization Address City/[facility]/ZIP Co de Phone Number [facility] [place] [address] * (ABNORMAL) T4, free (04/18/2018 12:32 PM EDT) Free T4 2.20(H) 0.93 - 1.70 ng/dL [facility] Blood specimen (specimen) 04/18/2018 12:32 PM EDT 04/18/2018 12:37 PM EDT Narrative Resulting Agency Comment Spec In Lab Gita Huang MD CHEMISTRY ORDERABLE S Performing Organization Address [facility]/ZIP Co de Phone Number [facility] [place] [address] * Thyroglobulin Antibody (04/18/2018 12:32 PM EDT) Thyroglob Ab <20.0 0.0 - 40.0 IU/mL [facility] Blood specimen (specimen) 04/18/2018 12:32 PM EDT 04/19/2018 7:18 AM EDT Narrative Resulting Agency Comment Spec In Lab Gita Huang MD LAB SEND OUT ORDERA BLES Performing Organization Address City/[facility]/ZIP Co de Phone Number [facility] [place] [address] documented in this encounter Visit Diagnoses Diagnosis Thyroid mass Unspecified disorder of thyroid documented in this encounter Care Teams Radiation Therapy Technician Relationship Specialty Start Date End Date Gita Huang MD [facility] [address] [place] [address] PCP - General Family Medicine 11/13/17 02/19/19 documented as of this encounter
--- OUTSIDE RECORDS SUMMARY | 2024-03-20 22:08 | XMS_ITS | Encounter Summary ---
Author Organization [facility] Address [facility] [place] [address] Care Team Providers Care Gas Turbine Mechanic Name Role Phone Billie Ly MD Primary Care Provider [phone] Encounter Details Date Type Department Care Team (Late st Contact Info) Description 03/31/2019 1:00 PM EDT - 03/31/2019 2:00 PM EDT [place] [phone] Layne Irwin MD [facility] [place] [address] EGD, UPPER GI ENDOSCOPY (WRVU 2.09) Social History Tobacco Use Types Packs/Day Years [...] Sign Reading Time Taken Comments Blood Pressure 123/59 03/31/2019 2:00 PM EDT Pulse 62 03/31/2019 2:00 PM EDT Temperature 36.9 ??C (98.4 ??F) 03/31/2019 12:34 PM E DT Respiratory Rate 13 03/31/2019 2:00 PM EDT Oxygen Saturation 99% 03/31/2019 2:00 PM EDT Inhaled Oxygen Concentration - - Weight 71.7 kg (158 lb) 03/31/2019 12:34 PM EDT Height 155.6 cm (5' 1.25) 03/31/2019 12:34 PM E DT Body Mass Index 29.61 03/31/2019 12:34 PM EDT documented in this encounter Discharge Instructions * Discharge Instructions* Luis Menard, RN - 03/31/2019 2:11 PM EDT Please call [phone] before 8pm Mon-Fri with problems, questions or concerns. If you call after 8pm or on weekends, call the Hospital at [phone] and ask to speak to the Rn Mds communications programmer and the balling machine operator will contact that person for you. ? * Attachments The following attachments cannot be sent through Care Everywhere. * EGD (Upper Endoscopy): Post-op ([place]) * Colonoscopy: Post-op ([place]) documented in this encounter Medications at Time [...] this encounter H&P Notes * Iker Moya - 03/31/2019 12:38 PM EDT Gastroenterology and [...] 3:20 PM EDT Office Visit Dermatology at [facility] [address] [place] [address] Dayanna Ramírez MD [facility] [place] [address] documented as of this encounter Procedures Procedure Name Priority Date/Time Associated Diagnosis Comments SPECIMEN TO PATHOLOGY Routine 03/31/2019 1:55 PM EDT SURGICAL PATHOLOGY REPORT Routine 03/31/2019 1:24 PM EDT Upper Gi Endoscopy, Biopsy ([id number]) 03/31/2019 12:55 PM EDT Dyspepsia Constipation, unspecified constipation type Colonoscopy, Diagnostic (41214) 03/31/2019 12:55 PM EDT Dyspepsia Constipation, unspecified constipation type Upper GI Endoscopy, Diagnostic (69490) 03/31/2019 12:55 PM EDT Dyspepsia Constipation, unspecified constipation type UPPER GI ENDOSCOPY Routine 03/31/2019 12 :40 PM EDT COLONOSCOPY Routine 03/31/2019 12:31 PM EDT documented in this encounter Results * Specimen to Pathology (03/31/2019 1:55 PM EDT) AP Specimen 03/31/2019 1:55 PM EDT 03/31/2019 1:55 PM EDT Narrative [facility] - 03/31/2019 1:55 PM EDT Specimen requisition ordered. ??Separate Pathology report to follow Layne Irwin MD PATHOLOGY/CYTOLOGY O RDERABLES [facility] [place] [address] * Surgical Pathology Report (03/31/2019 1:24 PM EDT) Final Diagnosis [id number] ? Location: 4T; EA08; A The signing pathologist has (i) examined the relevant preparation(s) for the specimen(s) and (ii) rendered or confirmed the diagnosis(es). . ?Surgical Pathology DIAGNOSIS Gastric erosions, ??biopsy: Gastric antral gland mucosa with mild nonspecific reactive gastropathy. Gastric fundic mucosa within normal limits. No H. pylori-like microorganism is seen. Electronically signed by: ??Tello Tenorio MD Verified: ??04/02/2019 ?Pathologist Performed at: ??-[facility] Dept. of Pathology, [place], [place] CLINICAL INFORMATION Specimen Submitted: A - Gastric erosions Clinical History and Diagnosis: Dyspepsia SPECIMEN PROCESSING A - Labeled/Fixative: Gastric erosions, formalin. Quantity/Size: Four, 0.2-0.4 cm. Tissue Description: Soft, bryant-pink tissues. Sections/Processi ng: Submitted en toto ??in 1 cassette labeled A1. ??pps 04/02/2019 10:33 AM EDT [facility] GI Biopsy 03/31/2019 1:24 PM EDT 03/31/2019 1:24 PM EDT Layne Irwin MD PATHOLOGY/CYTOLOGY O RDERACHARO [facility] [address] * UPPER GI ENDOSCOPY (03/31/2019 12:40 PM EDT) UPPER GI ENDOSCOPY [facility] Endoscopy Procedure Date: 03/31/2019 12:40 PM ? Patient Name: Yumiko Chang ? Date of : 1970 ? Age: 49 ? Order #: [id number] ? Instrument Name: [id number] ? Procedure: ? Upper GI endoscopy Indications: ? Dyspepsia Providers: ? Layne Irwin MD, Emily Reyna RN, Rahul ? Sonal Mcginnis, Cyber Special Agent, [place]ker ? Jake Jerez MD: ?Billieasiya Ly Medicines: ? Midazolam 4 mg IV, [...] * COLONOSCOPY (03/31/2019 12:31 PM EDT) COLONOSCOPY [facility] Endoscopy Procedure Date: 03/31/2019 12:31 PM ? Patient Name: Yumiko Chang ? Date of : 1970 ? Age: 49 ? Order #: [id number] ? Instrument Name: [id number] ? Procedure: ? Colonoscopy Indications: ? Change in bowel habits Providers: ? Layne Irwin MD, Emily Reyna RN, Rahul ? Sonal Mcginnis, Cyber Special Agent, Iker ? Jake Jerez MD: ?Billie Shocoy Medicines: ? Midazolam 2 [...] PROVATION documented in this encounter Visit Diagnoses Diagnosis Dyspepsia Dyspepsia and other specified disorders of function of stomach Constipation, unspecified constipation type documented in this encounter Administered Medications Inactive Administered Medications - up to 3 most recent administrations Medication Order MAR Action Action Date Dose Rate Site fentaNYL 50 mcg/mL multi-dose injection ONCE PRN, Starting on Sun03/31/19 at 1307, Until Sun03/31/19 at 1723, Intra-Operative (Intra-Procedure), Routine Given 03/31/2019 1:53 PM EDT 25 mcg Right Arm Given 03/31/2019 1:47 PM EDT 25 mcg Ri ght Arm Given 03/31/2019 1:33 PM EDT 50 mcg Ri ght Arm lactated ringers infusion 50 mL/hr, Intravenous, CONTINUOUS, Starting on Sun03/31/19 at 1300, Until Sun03/31/19 at 1521, Endoscopy (Day of Procedure) New Bag 03/31/2019 12:48 PM EDT 50 mL/hr 50 mL/hr midazolam (PF) (VERSED) multi-dose injection ONCE PRN, Starting on Sun03/31/19 at 1307, Until Sun03/31/19 at 1723, Intra-Operative (Intra-Procedure), Routine Given 03/31/2019 1:47 PM EDT 1 mg Right Arm Given 03/31/2019 1:33 PM EDT 1 mg Ri ght Arm Given 03/31/2019 1:17 PM EDT 1 mg Ri ght Arm ondansetron (ZOFRAN) injection 4 mg 4 mg, [...] RN) documented in this encounter Care Teams Gas Turbine Mechanic Relationship Specialty Start Date End Date Billie Ly MD [facility] [address] [place] [address] PCP - General Family Medicine 02/20/19 03/20/21 documented as of this encounter
--- OUTSIDE RECORDS SUMMARY | 2024-03-20 22:08 | XMS_ITS | Encounter Summary ---
Author Organization [facility] [place] [address] Care Team Providers Care Silverer Name Role Phone Gita Huang MD Primary Care Provider [phone] Encounter Details Date Type Department Care Team (Late st Contact Info) Description 04/05/2018 Orders Only Obstetrics and Gynecology at [facility] [place] [address] Kirt Fitzgerald MD [facility] [place] [address] Social History Tobacco Use Types Packs/Day Years Used Date Smoking Tobacco: Never Smokeless Tobacco: Never Alcohol Use Standard Drinks/Week Comments No 0 (1 standard drink = 0.6 oz pur e alcohol) rare Sex and Gender Information Value Date Recorded Sex Assigned at Not on file Gender Identity Not on file Sexual Orientation Not on file documented as of this encounter Progress Notes * Lb Guzman LPN - 04/05/2018 3:37 PM EDT TELEPHONE NOTE Caller: bL to Yumiko De Leon Reason for call: Patient experiencing symptoms of UTI Assessment: Patient is s/p 03/27/[address] Fitzgerald, has been experiencing UTI symptoms since the procedure. Plan/Instructions: Per Dr. Fitzgerald, empirically treat with Macrobid 100mg BID x 5 days. Phoned patientto confirm preferred pharmacy, explained prescription instructions. Patient states understanding and agreement. documented in this encounter Plan of Treatment Upcoming Encounters Date Type Department Care Team (Late st Contact Info) Description 04/07/2024 3:20 PM EDT Office Visit Dermatology at [facility] [address] [place] [address] Dayanna Ramírez MD [facility] DR RAYNE [place] [address] documented as of this encounter Visit Diagnoses Not on filedocumented in this encounter Care Teams Silverer Relationship Specialty Start Date End Date Gita Huang MD [facility] [place] [address] PCP - General Family Medicine 11/13/17 02/19/19 documented as of this encounter
--- OUTSIDE RECORDS SUMMARY | 2024-03-20 22:08 | XMS_ITS | Encounter Summary ---
Author Organization Formerly [facility] [place] [address] Care Team Providers Care Funeral Director/Embalmer/Owner Name Role Phone Gita Huang MD Primary Care Provider [phone] Encounter Details Date Type Department Care Team (Latest Contact Info) Description 12/19/2018 1:00 PM EDT Laboratory Appointment Lab [address] [place] [phone] Hyperthyroidism Social History Tobacco Use Types Packs/Day Years [...] 3:20 PM EDT Office Visit Dermatology at [facility] [address] [place] [address] Dayanna Ramírez MD [facility] DR RAYNE [place] [address] documented as of this encounter Procedures Procedure Name Priority Date/Time Associated Diagnosis Comments T3, FREE Routine 12/19/2018 1:16 PM EDT Hyperthyroidism T3 TOTAL Routine 12/19/2018 1:16 PM EDT Hyperthyroidism TSH Routine 12/19/2018 1:16 PM EDT Hyperthyroidism T4, FREE Routine 12/19/2018 1:16 PM EDT Hyperthyroidism HEPATIC FUNCTION PANEL Routine 12/19/2018 1:16 PM EDT Hyperthyroidism documented in this encounter Results * TSH (12/19/2018 1:16 PM EDT) Thyroid Stimulating Hormone 2.27 0.27 - 4.20 mcIU/mL [facility] Blood specimen (specimen) 12/19/2018 1:16 PM EDT 12/19/2018 1:20 PM EDT Narrative Resulting Agency Comment Spec In Lab Linda Abdullahi MD CHEMISTRY ORDERABLES Performing Organization Address [facility] Co de Phone Number [facility] [place] [address] * T4, free (12/19/2018 1:16 PM EDT) Free T4 1.39 0.93 - 1.70 ng/dL [facility] Blood specimen (specimen) 12/19/2018 1:16 PM EDT 12/19/2018 1:20 PM EDT Narrative Resulting Agency Comment Spec In Lab Linda Abdullahi MD CHEMISTRY ORDERABLES Performing Organization Address City/[facility]/ZIP Co de Phone Number [facility] [place] [address] * T3 Total (12/19/2018 1:16 PM EDT) T3 Total 109 75 - 170 ng/dL [facility] Blood specimen (specimen) 12/19/2018 1:16 PM EDT 12/19/2018 1:20 PM EDT Narrative Resulting Agency Comment Spec In Lab Linda Abdullahi MD CHEMISTRY ORDERABLES [facility] [place] [address] * T3, free (12/19/2018 1:16 PM EDT) Free T3 2.9 2.0 - 4.4 pg/mL [facility] Blood specimen (specimen) 12/19/2018 1:16 PM EDT 12/19/2018 1:20 PM EDT Narrative Resulting Agency Comment Spec In Lab Linda Abdullahi MD CHEMISTRY ORDERABLES Performing Organization Address City/[facility]/ZIP Co de Phone Number [facility] [place] [address] * Hepatic Function Panel (12/19/2018 1:16 PM EDT) [facility] Protein, Total 7.5 6.1 - 8.0 gm/dL [facility] Albumin 4.7 3.2 - 5.2 gm/dL [facility] Aspartate Aminotransferase 20 0 - 30 unit/L [facility] Alanine Aminotransferase 17 0 - 30 unit/L [facility] Alkaline Phosphatase 88 40 - 104 unit/L [facility] Bilirubin, Total 0.7 0.2 - 1.3 mg/dL [facility] Bilirubin, Direct 0.1 0.0 - 0.3 mg/dL [facility] Blood specimen (specimen) 12/19/2018 1:16 PM EDT 12/19/2018 1:20 PM EDT Narrative Resulting Agency Comment Spec In Lab Linda Abdullahi MD CHEMISTRY ORDERABLES Performing Organization Address City/[facility]/ZIP Co de Phone Number [facility] [place] [address] documented in this encounter Visit Diagnoses Diagnosis Hyperthyroidism Thyrotoxicosis without mention of goiter or other cause, without mention of thyrotoxic crisis or storm documented in this encounter Care Teams Funeral Director/Embalmer/Owner Relationship Specialty Start Date End Date Gita Huang MD [facility] DR RAYNE [place] [address] PCP - General Family Medicine 11/13/17 02/19/19 documented as of this encounter
--- OUTSIDE RECORDS SUMMARY | 2024-03-20 22:08 | XMS_ITS | Encounter Summary ---
Author Organization [facility] Address [facility] [place] [address] Care Team Providers Care Director Of Reimbursement Name Role Phone Gita Huang MD Primary Care Provider [phone] Encounter Details Date Type Department Care Team (Late st Contact Info) Description 02/19/2018 9:40 AM EDT - 02/19/2018 11:59 PM EDT Hospital [place] [address] Jessica Toscano, JOAN [facility] [address] Encounter for screening mammogram for breast cancer Discharge Disposition: Home [...] hours as needed. 1 Inhaler 3 04/18/2016 buPROPion (WELLBUTRIN XL) 150 mg Tablet Extended Release 24 hr 10/27/2017 03/05/2018 sertraline (ZOLOFT) 100 mg Tablet Take 1 tablet by mouth daily. 90 tablet 1 06/05/2017 03/05/2018 naproxen sodium (ANAPROX) 550 mg TabletIndications:NEENA (juvenile idiopathic arthritis) Take 1 tablet by mouth 2 times daily as needed. 60 tablet 2 10/18/2016 04/16/2018 cetirizine (ZYRTEC) 10 mg Tablet Take 1 tablet by mouth daily. 90 tablet 3 10/18/2016 03/05/2018 documented as of this encounter Plan of Treatment Upcoming Encounters Date Type Department Care Team (Late st Contact Info) Description 04/07/2024 3:20 PM EDT Office Visit Dermatology at [facility] [address] [place] [address] Dayanna Ramírez MD [facility] [address] [place] [place] [address] documented as of this encounter Procedures Procedure Name Priority Date/Time Associated Diagnosis Comments MAMMO SCREENING CAD AND COLBY BILATERAL Routine 02/19/2018 10:09 AM EDT Encounter for screening mammogram for breast cancer documented in this encounter Results * Mammo Screening Cad and Colby Bilateral (02/19/2018 10:09 AM EDT) Anatomical Region Laterality Modality Breast Bilateral Mammography Narrative 02/19/2018 10:23 AM EDT BILATERAL MAMMOGRAPHY REASON FOR EXAM: [...] CONCLUSION: No mammographic evidence of malignancy. RECOMMENDATION: The [employer] and The Society of Breast Imaging recommend annual screening beginning at age 40 for the general female population. Screening should continue as long as a woman is in good health and is expected to live 10 more years or longer. All women should be familiar with the known benefits, limitations, and potential harms linked to breast cancer screening. They should also know how their breasts normally look and feel and report any breast changes to a health care provider right away. Some women - because of their family history, a genetic tendency, or certain other factors - should be screened with MRIs along with mammograms. (The number of women who fall into this category is very small.) The patient and health care provider should discuss the patient history and decide if earlier screening and breast MRI are appropriate. A result letter has been sent to this patient by the [facility]. BIRADS CATEGORY 1: NEGATIVE Jessica Toscano APRN IMG MAMMO ORDERA BLES documented in this encounter Visit Diagnoses Diagnosis Encounter for screening mammogram for breast cancer documented in this encounter Care Teams Director Of Reimbursement Relationship Specialty Start Date End Date Gita uHang MD [facility] DR R[address] [facility] [place] [address] PCP - General Family Medicine 11/13/17 02/19/19 documented as of this encounter
--- OUTSIDE RECORDS SUMMARY | 2024-03-20 22:08 | XMS_ITS | Encounter Summary ---
Author Organization [facility] [place] [address] Care Team Providers Care Senior Physical Therapist Name Role Phone Gita Huang MD Primary Care Provider [phone] Encounter Details Date Type Department Care Team (Latest Contact Info) Description 09/04/2018 11:15 AM EST Laboratory Appointment Lab [address] [place] [phone] Hyperthyroidism Social History Tobacco Use Types Packs/Day [...] 3:20 PM EDT Office Visit Dermatology at [facility] [address] [place] [address] Dayanna Ramírez MD [facility] [address] [place] [address] documented as of this encounter Procedures Procedure Name Priority Date/Time Associated Diagnosis Comments T3, FREE Routine 09/04/2018 11:28 AM EST Hyperthyroidism T3 TOTAL Routine 09/04/2018 11:28 AM EST Hyperthyroidism TSH Routine 09/04/2018 11:28 AM EST Hyperthyroidism T4, FREE Routine 09/04/2018 11:28 AM EST Hyperthyroidism HEPATIC FUNCTION PANEL Routine 09/04/2018 11:28 AM EST Hyperthyroidism documented in this encounter Results * (ABNORMAL) TSH (09/04/2018 11:28 AM EST) Thyroid Stimulating Hormone 4.83(H) 0.27 - 4.20 mlU/ML [facility] Blood specimen (specimen) 09/04/2018 11:28 AM EST 09/04/2018 11:33 AM EST Narrative Resulting Agency Comment Spec In Lab Linda Abdullahi MD CHEMISTRY ORDERABLES Performing Organization Address [facility] Co de Phone Number [facility] [place] [address] * T4, free (09/04/2018 11:28 AM EST) Free T4 1.08 0.93 - 1.70 ng/dL [facility] Blood specimen (specimen) 09/04/2018 11:28 AM EST 09/04/2018 11:33 AM EST Narrative Resulting Agency Comment Spec In Lab Linda Abdullahi MD CHEMISTRY ORDERABLES Performing Organization Address City/[facility]/ZIP Co de Phone Number [facility] [place] [address] * T3 Total (09/04/2018 11:28 AM EST) T3 Total 108 75 - 170 ng/dL [facility] Blood specimen (specimen) 09/04/2018 11:28 AM EST 09/04/2018 11:33 AM EST Narrative Resulting Agency Comment Spec In Lab Linda Abdullahi MD CHEMISTRY ORDERABLES Performing Organization Address City/[facility]/ZIP Co de Phone Number [facility] [place] [address] * T3, free (09/04/2018 11:28 AM EST) Free T3 2.6 2.0 - 4.4 pg/mL [facility] Blood specimen (specimen) 09/04/2018 11:28 AM EST 09/04/2018 11:33 AM EST Narrative Resulting Agency Comment Spec In Lab Linda Abdullahi MD CHEMISTRY ORDERABLES Performing Organization Address City/[facility]/ZIP Co de Phone Number [facility] [place] [address] * Hepatic Function Panel (09/04/2018 11:28 AM EST) Pathologist [facility] Protein, Total 7.6 6.1 - 8.0 gm/dL [facility] Albumin 4.5 3.2 - 5.2 gm/dL [facility] Aspartate Aminotransferase 19 0 - 30 unit/L [facility] Alanine Aminotransferase 12 0 - 30 unit/L [facility] Alkaline Phosphatase 84 40 - 104 unit/L [facility] Bilirubin, Total 0.8 0.2 - 1.3 mg/dL [facility] Bilirubin, Direct 0.2 0.0 - 0.3 mg/dL [facility] Blood specimen (specimen) 09/04/2018 11:28 AM EST 09/04/2018 11:33 AM EST Narrative Resulting Agency Comment Spec In Lab Linda Abdullahi MD CHEMISTRY ORDERABLES Performing Organization Address City/[facility]/ZIP Co de Phone Number [facility] [place] [address] documented in this encounter Visit Diagnoses Diagnosis Hyperthyroidism Thyrotoxicosis without mention of goiter or other cause, without mention of thyrotoxic crisis or storm documented in this encounter Care Teams Senior Physical Therapist Relationship Specialty Start Date End Date Gita Huang MD [facility] [address] [place] [address] PCP - General Family Medicine 11/13/17 02/19/19 documented as of this encounter
--- OUTSIDE RECORDS SUMMARY | 2024-03-20 22:08 | XMS_ITS | Encounter Summary ---
Author Organization Formerly [facility] Address [facility] [place] [address] Care Team Providers Care Teachers Assistant Name Role Phone Gita Huang MD Primary Care Provider [phone] Reason for Visit * Reason Comments Procedure UDS Encounter Details Date Type Department Care Team (Late st Contact Info) Description 03/27/2018 1:00 PM EDT Procedure visit Obstetrics and Gynecology at [facility] [place] [address] Kirt Fitzgerald MD [facility] [place] [address] Urinary incontinence, urge (Primary Dx) Social History Tobacco Use Types Packs/Day Years [...] Sign Reading Time Taken Comments Blood Pressure 123/67 03/27/2018 12:42 PM EDT Pulse 66 03/27/2018 12:42 PM EDT Temperature - - Respiratory Rate - - Oxygen Saturation 99% 03/27/2018 12:42 PM EDT Inhaled Oxygen Concentration - - Weight 68.5 kg (151 lb) 03/27/2018 12:42 PM EDT Height - - Body Mass Index 28.3 01/22/2018 2:53 PM EDT documented in this encounter Progress Notes * Kirt Fitzgerald MD - 03/27/2018 1:00 PM EDT Female Pelvic Medicine and Reconstructive Surgery @ [facility] Urodynamic Procedure Note Patient name: Yumiko Chang Final Impression: ?? SUKHWINDER demonstrate at low volume (~100cc) ?? Urethral mobility present ?? Sensations not fully assessed due to inadequate filling ?? Normal voiding Recommendations: ?? MIxed urinary incontinence - treat pre patient's goals/expectations INDICATIONS FOR URODYNAMICS: (x) Urinary incontinence (x) Pelvic organ prolapse Multi-channel urodynamic evaluation procedure was verbally explained to the patient including risksof possible urinary tract infection and benefit of information from the testing. Verbal consent obtained. UROFLOWMETRY: Total Volume Voided: 400 mL Qmax: 24 mL/sec Post void residual: 15 mL (obtained via catheter) URINE ANALYSIS: trace for nitrites CYSTOMETROGRAM: 7 Greek T-DOC catheter was inserted into the bladder. A 7 Greek T-DOC catheter was placed in the vagina/rectum for measurement of abdominal pressures. Filling was performed via a 7 Greek T-DOC catheter in the sitting position at a rate of 50cc/min. . Detrusor pressure at 0cc: 0 cm H2O S1-First sensation: 100cc mL S2-First desire: Not recorded S3-Strong desire: Not recorded S4- Maximum cystometric capacity - not reached Detrusor pressure at maximum cystometric capacity: n/a cm H2O EMG: (x) stable during filling (x) appropriate increased activity with Valsalva, cough (x) appropriate relaxation with voiding Uninhibited detrusor contractions associated with urge: no Uninhibited detrusor contractions associated with urinary leakage : no Leakage seen with stress maneuvers (valsalva/cough): no Leak point pressure testing performed at 200 cc at 50cc increments and at capacity. Maneuver Leak? Volume (mL) Pressure Sitting w/o prolapse support yes 88 cm H2O (Pves) Sitting with prolapse support (scopette) no n/a cm H2O (Pves) Urethral catheter out w/o prolapse support yes 121 cm H2O (Pabd) Urethral catheter out with prolapse support (scopette) no n/a cm H2O (Pabd) Comments: No Abdominal straining with void No Obstruction by Blaivis / Groutz nomogram: Symptom diagnosis: Storage symptoms (x) Increased daytime frequency x) Urgency (x) Stress urinary incontinence (x) Urge urinary incontinence (x) Mixed urinary incontinence Voiding symptoms (x) Slow stream (x) Feeling of incomplete emptying Other Diagnoses: (Rectocele) Urodynamic Diagnosis: Filling Phase Diagnoses: Sensation (x) Urgency Filling Phase Diagnosis: Detrusor Function (x) Normal filling detrusor function - unable to adequately fill and fully assess Filling Phase Diagnosis: Urethral closure mechanism (x) Urodynamic stress urinary incontinence Voiding Phase Diagnoses: Detrusor function during voiding (x) Normal voiding detrusor function Voiding Phase Diagnoses: Urethral function during voiding (If EMG not done, may be less specific source) (x) Normal urethral function during voiding CLEMENT Alegre assisted in this procedure. I was present for the pertinent portions of the urodynamic testing and fully reviewed and edited the results. Kirt Fitzgerald MD Division of Female Pelvic Medicine and Reconstructive Surgery * Millie Venegas LPN - 03/27/2018 1:00 PM EDT Straight cath after voiding resulted in 10 ml. documented in this encounter Plan of Treatment Upcoming Encounters Date Type Department Care Team (Late st Contact Info) Description 04/07/2024 3:20 PM EDT Office Visit Dermatology at [facility] [address] [place] [address] Dayanna Ramírez MD [facility] [address] [place] [address] documented as of this encounter Procedures Procedure Name Priority Date/Time Associated Diagnosis Comments UROLOGY SCAN 03/27/2018 12:00 AM EDT POCT URINE DIPSTICK Routine 03/27/2018 Urinary incontinence, urge documented in this encounter Results * SCAN DOC: UROLOGY (03/27/2018 12:00 AM EDT) Narrative 03/27/2018 12:00 AM EDT Ordered by an unspecified provider. Scanning Provider MEDIA MGR SCAN EXT O RDR/RSLT * POCT urine dipstick (03/27/2018) POC Leuk, UA negative Negative - Negative POC Nitrite, UA positive Negative - Negative POC Blood, UA trace Negative - Negative efra/uL 03/27/2018 Kirt Fitzgerald MD POINT OF CARE TEST O RDERABLES documented in this encounter Visit Diagnoses Diagnosis Urinary incontinence, urge- Primary Urge incontinence documented in this encounter Care Teams Teachers Assistant Relationship Specialty Start Date End Date Gita Huang MD [facility] [address] [place] [address] PCP - General Family Medicine 11/13/17 02/19/19 documented as of this encounter
--- OUTSIDE RECORDS SUMMARY | 2024-03-20 22:08 | XMS_ITS | Encounter Summary ---
Author Organization Formerly [facility] [place] [address] Care Team Providers Care Live Ammunition Inspector Name Role Phone Gita Huang MD Primary Care Provider [phone] Reason for Visit * Reason Onset Date Comments Appointment 11/07/2018 Encounter Details Date Type Department Care Team (Late st Contact Info) Description 11/07/2018 Telephone [place] [address] Fabby Rollins Appointment Social History Tobacco Use Types Packs/Day Years [...] encounter Miscellaneous Notes * Telephone Encounter - Fabby Rollins - 11/07/2018 10:45 AM EDT Caller and relationship to patient (if other than patient): Yumiko Best time to reach caller: anytime Message or Reason for Call: Yumiko sent in an appointment request to see Dr. Abdullahi thru the [facility] ab[facility] 2 weeks ago and hasn't heard anything so she decided to call. She says that she needs a lab appointment prior to her appointment with Dr. Abdullahi. Please call her at [phone] to discuss further Appt Needed and Reason: yes, thyroid Provider: Dr. Abdullahi documented in this encounter Plan of Treatment Upcoming Encounters Date Type Department Care Team (Late st Contact Info) Description 04/07/2024 3:20 PM EDT Office Visit Dermatology at [facility] [address] [place] [address] Dayanna Ramírez MD [facility] DR RAYNE [place] [address] documented as of this encounter Visit Diagnoses Not on filedocumented in this encounter Care Teams Live Ammunition Inspector Relationship Specialty Start Date End Date Gita Huang MD [facility] [address] R[address] [place] [address] PCP - General Family Medicine 11/13/17 02/19/19 documented as of this encounter
--- OUTSIDE RECORDS SUMMARY | 2024-03-20 22:08 | XMS_ITS | Encounter Summary ---
Author Organization [facility] [place] [address] Care Team Providers Care Core Maker Name Role Phone Gita Huang MD Primary Care Provider [phone] Reason for Visit * Reason Comments Follow Up Surgery Encounter Details Date Type Department Care Team (Late st Contact Info) Description 02/19/2018 10:30 AM EDT Office [place] [address] Jessica Toscano [employer] [facility] [place] [address] Fibrocystic breast changes, unspecified laterality Social History Tobacco Use Types Packs/Day Years Used Date Smoking Tobacco: Never Smokeless Tobacco: Never Alcohol Use Standard Drinks/Week Comments No 0 (1 standard drink = 0.6 oz pur e alcohol) rare Sex and Gender Information Value Date Recorded Sex Assigned at Not on file Gender Identity Not on file Sexual Orientation Not on file documented as of this encounter Progress Notes * Jessica Toscano APRN - 02/19/2018 10:30 AM EDT Ms. Chang is a 48-year-old female who returns today for interval breast exam. I last saw Yumiko in 2014 for evaluation of a possible mass in her left axilla/lateral ridge of her left breast. Yumiko has been evaluated in the past for similar concerns by both myself and Dr Morgan. Work up has been negative to date. No concerns about her breast exam today. She is post menopausal .She reports occasional fullness and tenderness in her right axilla and upper breast. Weight up about 35 lbs She denies any skin changes, breast trauma,prior breast surgery or nipple discharge. Physical Exam: She looks well and is in no apparent distress. Her skin is anicteric with good turgor.Sclera are anicteric. Her head and neck are without masses or adenopathy. Her arms have good ROM without any evidence of lymphedema. No worrisome cervical adenopathy, small, smooth moveable in her right mid cervical chain. Breasts have a paucity of fat. Her breasts are symmetric.Her nipples are everted.There is no axillary adenopathy on the right or the left.There are no skin changes or dimpling noted in either breast. The left breast Is notable for subtle nodularity along the upper lateral ridge but no masses or axillary adenopathy. Her right breast exam is similar in character to her left breast,without discrete masses. Mammogram today pending Assessment/Plan: 48 yo female with a stable breast exam and imaging pending. If normal I have offered to see her in a year with a mammogram or sooner if needed. She agrees. documented in this encounter Plan of Treatment Upcoming Encounters Date Type Department Care Team (Late st Contact Info) Description 04/07/2024 3:20 PM EDT Office Visit Dermatology at [facility] [address] [place] [address] Dayanna Ramírez MD [facility] [address] [place] [address] documented as of this encounter Visit Diagnoses Diagnosis Fibrocystic breast changes, unspecified laterality documented in this encounter Care Teams Core Maker Relationship Specialty Start Date End Date Gita Huang MD [facility] [address] [place] [address] PCP - General Family Medicine 11/13/17 02/19/19 documented as of this encounter
--- OUTSIDE RECORDS SUMMARY | 2024-03-20 22:08 | XMS_ITS | Encounter Summary ---
Author Organization [facility] Address [facility] [place] [address] Care Team Providers Care Processing Tech Name Role Phone Gita Huang MD Primary Care Provider [phone] Reason for Visit * Reason Onset Date Comments Medication Refill 03/05/2018 Encounter Details Date Type Department Care Team (Late st Contact Info) Description 03/05/2018 Refill Family Medicine at [facility] [address] [place] [address] Ale Patel Social History Tobacco Use Types Packs/Day Years [...] encounter Miscellaneous Notes * Telephone Encounter - Waylon Sorto CCMA - 03/06/2018 9:23 AM EDT Requested Prescriptions Pending Prescriptions Disp Refills ??? buPROPion (WELLBUTRIN XL) 150 mg Tablet Extended Release 24 hr 90 tablet 0 Sig: Take 1 tablet by mouth every morning. Indications: Anxiety with Depression ??? sertraline (ZOLOFT) 100 mg Tablet 90 tablet 0 Sig: Take 1 tablet by mouth daily. Indications: Anxiety with Depression ??? cetirizine (ZYRTEC) 10 mg Tablet 90 tablet 3 Sig: Take 1 tablet by mouth daily. * Telephone Encounter - Ale Patel - 03/05/2018 1:35 PM EDT Previous pt of Abby Guaman, I advised pt she would need to be seen by new PCP, last seen 06/05/2017. Pt states there is not reason for her to be seen. She also has been out of medication for 2 weeks. documented in this encounter Plan of Treatment Upcoming Encounters Date Type Department Care Team (Late st Contact Info) Description 04/07/2024 3:20 PM EDT Office Visit Dermatology at [facility] [address] [place] [address] Dayanna Ramírez MD [facility] [address] [place] [address] documented as of this encounter Visit Diagnoses Not on filedocumented in this encounter Care Teams Processing Tech Relationship Specialty Start Date End Date Gita Huang MD [facility] [place] [address] PCP - General Family Medicine 11/13/17 02/19/19 documented as of this encounter
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
--- OUTSIDE RECORDS SUMMARY | 2024-03-20 22:08 | XMS_ITS | Encounter Summary ---
Author Organization [facility] Address [facility] [place] [address] Care Team Providers Care Fly Worker Name Role Phone Gita Huang MD Primary Care Provider [phone] Reason for Visit * Reason Comments Follow-up thyroid Encounter Details Date Type Department Care Team (Late st Contact Info) Description 04/24/2018 9:00 AM EDT Office Visit Family Medicine at [facility] [address] [place] [address] [place] [address] Thyroid mass Social History Tobacco Use Types [...] Sign Reading Time Taken Comments Blood Pressure 105/49 04/24/2018 9:19 AM EDT Pulse 74 04/24/2018 9:19 AM EDT Temperature - - Respiratory Rate - - Oxygen Saturation 99% 04/24/2018 9:19 AM EDT Inhaled Oxygen Concentration - - Weight - - Height - - Body Mass Index - - documented in this encounter Progress Notes * Gita Huang MD - 04/24/2018 9:00 AM EDT Yumiko Chang is a 48 y.o. female Chief Complaint Patient presents with ??? Follow-up thyroid and follow up of chronic conditions HPI Thyroid mass with hyperthyroidism Lump on rt [...] cold intermittently, frequent diarrhea lost wght Summer 2018 , after gaining the last few years hair thinning and dry always TSH nml in 2015, Neck trama 2014 and MRI with mild degenerative changes ROS: Denies fever ,chills, or mental status changes, no visual changes, no change in appetite. Denies chest pain and shortness of breath, no changes in bladder. SOCIAL HISTORY reports that she has never smoked. She has never used smokeless tobacco. She reports that she does not drink alcohol or use illicit drugs. Social History Social History Narrative The patient [...] history of Alcohol Abuse or Substance Abuse. Patient Active Problem List Diagnosis Code ??? [...] urinary incontinence N39.46 Physical Exam: Blood pressure 105/49, pulse 74, last menstrual period 05/30/2015, SpO2 99 %. Gen: Awake, alert, no acute distress. ENT: TM's/canals unremarkable. No effusion, purulence. Nasal: unremarkable, no purulence. Throat: unremarkable; no Erythema or lesions. Neck: Thyromegaly non tender Lymphatic: no cervical, axillary or supraclavicular lymphadenopathy. Cardiac/vascular: RRR, no S3 or murmur. No carotid bruits. DPP's 2+ bilaterally, Lungs: CTA bilaterally, no Whe/R/R Abdominal: S/NT/ND. Good bs. No mass. No HSM. . Extremities: no C/C/E x 4 Skin: warm and dry, no rash or lesion Other diagnostic data: us and labs reviewed and endocrine appt scheduled late jun, contacted office to move up and Schedule thyroid uptake exam prior to identify etiology of hyperthyroid . Impressions/Plan: 48 y.o. patient known to me in for Follow up neck mass and new diagnosis of thyroid mass and hyperthyroid discussed etiology and symptoms with pt vitals stable and endocrine appt rescheduled to May , uptake scan ordered documented in this encounter Miscellaneous Notes * Assessment & Plan Note - Gita Huang MD - 04/24/2018 11:58 AM EDT Associated Problem(s): Thyroid mass with hyperthyroidism [...] always TSH nml in 2015, Neck trama 2015 and MRI with mild degenerative changes documented in this encounter Plan of Treatment Upcoming Encounters Date Type Department Care Team (Late st Contact Info) Description 04/07/2024 3:20 PM EDT Office Visit Dermatology at [facility] [address] [place] [address] Dayanna Ramírez MD [facility] DR [address] [place] [address] documented as of this encounter Visit Diagnoses Diagnosis Thyroid mass Unspecified disorder of thyroid documented in this encounter Care Teams Fly Worker Relationship Specialty Start Date End Date Gita Huang MD [facility] [place] [address] PCP - General Family Medicine 11/13/17 02/19/19 documented as of this encounter
--- OUTSIDE RECORDS SUMMARY | 2024-03-20 22:08 | XMS_ITS | Encounter Summary ---
[facility] Organization [facility] [place] [address] Care Team Providers Care Spar Machine Operator Name Role Phone Gita Huang MD Primary Care Provider [phone] Reason for Visit * Reason Comments Hyperthyroidism * Consultation (Routine) - Closed Specialty Diagnoses / Procedures Referred By Contac t Referred To Contact Endocrinology Diagnoses Hyperthyroidism Gita Huang MD [facility] [place] [address] [facility] [address] [place] [address] Referral ID Status Reason Start Date Expiration Date V isits Requested Visits Authorized [id number] Closed Consult, Test & Treat 04/18/2018 04/18/2019 1 1 Encounter Details Date Type Department Care Team (Late st Contact Info) Description 06/12/2018 9:00 AM EDT Office [place] [address] Linda Abdullahi MD [facility] [place] [address] Hyperthyroidism Social History Tobacco Use Types Packs/Day [...] Sign Reading Time Taken Comments Blood Pressure 116/68 06/12/2018 9:22 AM EDT Pulse 65 06/12/2018 9:22 AM EDT Temperature - - Respiratory Rate - - Oxygen Saturation - - Inhaled Oxygen Concentration - - Weight 68.2 kg (150 lb 6.4 oz) 06/12/2018 9:22 A M EDT Height 154.9 cm (5' 1) 06/12/2018 9:22 AM EDT Body Mass Index 28.42 06/12/2018 9:22 AM EDT documented in this encounter Progress Notes * Linda Abdullahi MD - 06/12/2018 9:00 AM EDT Endocrinology New Patient Consultation RFC: Referred to Endocrinology by Gita Huang for further evaluation of hyperthyroidism. HISTORY OF PRESENT ILLNESS: Ms. Yumiko Chang is a 48 y.o. year old lady with history significant for rheumatoid arthritis, fibromyalgia, and Suzy-Danlos type 3, who presents today for evaluation of hyperthyroidism. She describes that things started with a pain in her neck for months (front of neck) starting in the spring, energy levels plummeted (reminiscent of how she felt when she was anemic in childhood - iron deficiency), increased dyspnea on exertion (even walking to the bathroom), diaphoretic, intensetremors, diarrhea, vomiting, headaches, no fevers. Then over a 2 month period (~Mar-Apr 2018), the thyroid swelled. She saw her PCP Dr. Huang on 04/16/18, and had bloodwork 04/18/18 showed hyperthyroidism. Lost weight 159 -> 142 lb over a 2 week period around that time. She had an US of her thyroid04/18/18 that did not show any discrete nodules but showed some hypoechoic irregular areas that suggested subacute thyroiditis > Graves disease. In the last week she has felt much better - now has an extreme amount of energy, only needs 2 hoursof sleep, tremor got better. Having constipation now for the past 2 weeks. Headaches have improved. She is legally blind in her L [...] of theseissues had resolved many years ago. FH - mother and maternal uncle had eyes that protruded prominently in older age. She doesn't know if they had thyroid disease bc they didn't talk about their health. She has a cousin that was recently diagnosed with thyroid cancer, has a large goiter, apparently is nonoperable. Component Latest Ref Rng & Units 04/18/2018 Thyroglob Ab 0.0 - 40.0 IU/mL <20.0 Free T4 0.93 - 1.70 ng/dL 2.20 (H) T4, total 5.1 - 10.8 mcg/dL 15.4 (H) T3, Free 2.0 - 4.4 pg/mL 5.0 (H) TSH 0.27 - 4.20 mlU/ML 0.02 (L) PAST MEDICAL HISTORY: Patient Active Problem List [...] hyperthyroidism 05/12/2015 ??? Myocardial infarct MEDICATIONS: Medications 06/12/18 0935 Medication Sig Taking? naproxen sodium (ANAPROX) 550 mg Tablet Take 1 tablet by mouth 2 times daily as needed. Yes oxybutynin (DITROPAN XL) 10 mg Tablet Extended Rel 24 hr Take 1 tablet by mouth daily. Yes sertraline (ZOLOFT) 100 mg Tablet Take 1 tablet by mouth daily. Indications: Anxiety with Depression Yes cetirizine (ZYRTEC) 10 mg Tablet Take 1 tablet by mouth daily. Yes buPROPion (WELLBUTRIN XL) 150 mg Tablet Extended Release 24 hr Take 1 tablet by mouth every morning. Indications: Anxiety with Depression Patient not taking: Reported on 06/12/2018 levalbuterol (XOPENEX HFA) 45 mcg/actuation HFA Aerosol Inhaler Inhale 1-2 puffs into the lungs every 4 hours as needed. Patient not taking: Reported on 06/12/2018 ALLERGIES: Allergies Allergen Reactions ??? Latex Rash [...] ??? Neg Hx Alcohol Abuse Substance Abuse REVIEW OF SYSTEMS: All 12 systems reviewed and negative except as noted per HPI. PHYSICAL EXAM: Vitals Office Visit from 06/12/2018 in Endocrinology at [place] Weight 68.2 kg (150 lb 6.4 oz) Height 154.9 cm (5' 1) BSA (Calculated - sq m) 1.71 sq meters BMI (Calculated) 28.41 Heart Rate 65 BP 116/68 Gen: NAD, AAOx3, speaking full sentences, slightly anxious demeanor, average habitus Skin: warm and dry Eyes: PERRL, EOMI, anicteric sclerae without injection, no proptosis or lid lag, ophthamometer - R 12mm, L 12mm @ 90mm ENT: moist oral mucosa Neck: no thyromegaly, no thyroid nodules, no thyroid bruit, no lymphadenopathy Pulm: CTAB, no stridor Cardiac: reg s1s2, no m/r/g GI: abdomen soft, NT, ND, normoactive bowel sounds, no hepatomegaly MSK: 5/5 strength in all muscle groups of the upper and lower extremities, no LE edema Neuro: 2+ biceps and patellar DTRs, no clonus, no delay of the relaxation phase, no tremor. ASSESSMENT: 48 yo F with hx rheumatologic disease (rheumatoid arthritis, fibromyalgia, Suzy-Danlos), who was noted to have TFTs showing a T4- predominant hyperthyroidism about 7 weeks ago, but who has felt her hyperthyroid symptoms subside over the past week. This may suggest the possibility of a h yperthyroid/destructive phase of a temporary lymphocytic silent (painless) or subacute (painful) thyroiditis that may now be tapering towards the hypothyroid/recovery phase. She had also experienced lower anterior neck tenderness, but the time course of this doesn't quite fit with a subacute thyroiditis, although some predisposed people can have frequently recurrent bouts of such temporary thyroiditis. If this is the case, then at this point, watchful waiting would be the most appropriate course of action. Another possibility could be a rapidly cycling Graves' disease which is fluctuating in d isease activity. To distiguish between these possibilities, I will check another set of TFTs, and aTSI level. If she is still hyperthyroid, and if TSI is negative, an I-123 uptake and scan can also differentiate between these two possibilities on the differential. She has no thyroid nodules on today's bedside ultrasound, so hyperfunctioning thyroid nodule would not be a consideration here. PLAN: --TFTs today - standing orders placed in case there is need to start thyroid blocking medication. --thyrotoxic symptoms are improved so beta sandra isn't necessary at this time. --if TFTs still show hyperthyroidism, will see whether her TSI is elevated. If so, that will clinchthe diagnosis of Graves' disease --if TSI is negative, and TFTs still hyperthyroid, will send for I-123 uptake and scan. LINDA ABDULLAHI MD Machine Pack Assemblerblock placer Section of Endocrinology [place] documented in this encounter Plan of Treatment Upcoming Encounters Date Type Department Care Team (Late st Contact Info) Description 04/07/2024 3:20 PM EDT Office Visit Dermatology at [facility] [address] [place] [address] Dayanna Ramírez MD [facility] [place] [address] documented as of this encounter Procedures Procedure Name Priority Date/Time Associated Diagnosis Comments THYROID STIMULATING IMMUNOGLOBULINS Routine 06/12/2018 11:06 AM EDT Hyperthyroidism T3, FREE Routine 06/12/2018 11:06 AM EDT Hyperthyroidism T3 TOTAL Routine 06/12/2018 11:06 AM EDT Hyperthyroidism TSH Routine 06/12/2018 11:06 AM EDT Hyperthyroidism T4, FREE Routine 06/12/2018 11:06 AM EDT Hyperthyroidism HEPATIC FUNCTION PANEL Routine 8 11:06 AM EDT Hyperthyroidism documented in this encounter Results * (ABNORMAL) TSH (06/12/2018 11:06 AM EDT) Thyroid Stimulating Hormone 6.24(H) 0.27 - 4.20 mlU/ML [facility] Blood specimen (specimen) 06/12/2018 11:06 AM EDT 06/12/2018 11:21 AM EDT Narrative Resulting Agency Comment Spec In Lab Linda Abdullahi MD CHEMISTRY ORDERABLES Performing Organization Address [facility]/ZIP Co de Phone Number [facility] [place] [address] * (ABNORMAL) T4, free (06/12/2018 11:06 AM EDT) Free T4 0.85(L) 0.93 - 1.70 ng/dL [facility] Blood specimen (specimen) 06/12/2018 11:06 AM EDT 06/12/2018 11:21 AM EDT Narrative Resulting Agency Comment Spec In Lab Linda Abdullahi MD CHEMISTRY ORDERABLES [facility] [place] [address] * T3 Total (06/12/2018 11:06 AM EDT) [facility] T3 Total 81 75 - 170 ng/dL [facility] Blood specimen (specimen) 06/12/2018 11:06 AM EDT 06/12/2018 11:21 AM EDT Narrative Resulting Agency Comment Spec In Lab Linda Abdullahi MD CHEMISTRY ORDERABLES Performing Organization Address City/[facility]/ZIP Co de Phone Number [facility] [place] [address] * T3, free (06/12/2018 11:06 AM EDT) [facility] Free T3 2.2 2.0 - 4.4 pg/mL [facility] Blood specimen (specimen) 06/12/2018 11:06 AM EDT 06/12/2018 11:21 AM EDT Narrative Resulting Agency Comment Spec In Lab Linda Abdullahi MD CHEMISTRY ORDERABLES Performing Organization Address City/[facility]/ZIP Co de Phone Number [facility] [place] [address] * Hepatic Function Panel (06/12/2018 11:06 AM EDT) [facility] Protein, Total 7.1 6.1 - 8.0 gm/dL [facility] Albumin 4.1 3.2 - 5.2 gm/dL [facility] Aspartate Aminotransferase 19 0 - 30 unit/L [facility] Alanine Aminotransferase 16 0 - 30 unit/L [facility] Alkaline Phosphatase 93 40 - 104 unit/L [facility] Bilirubin, Total 0.6 0.2 - 1.3 mg/dL [facility] Bilirubin, Direct 0.1 0.0 - 0.3 mg/dL [facility] Blood specimen (specimen) 06/12/2018 11:06 AM EDT 06/12/2018 11:21 AM EDT Narrative Resulting Agency Comment Spec In Lab Linda Abdullhai MD CHEMISTRY ORDERABLES Performing Organization Address City/[facility] Co de Phone Number [facility] [place] [address] * Thyroid Stimulating Immunoglobulins (06/12/2018 11:06 AM EDT) Thyroid Stimulating Immunoglobulin <0.10 <=0.55 IU/L [facility] Blood specimen (specimen) 06/12/2018 11:06 AM EDT 06/12/2018 1:14 PM EDT Narrative Resulting Agency Comment Spec In Lab Linda Abdullahi MD IMMUNOLOGY ORDERABLE S Performing Organization Address [facility] Co de Phone Number [facility] [place] [address] documented in this encounter Visit Diagnoses Diagnosis Hyperthyroidism Thyrotoxicosis without mention of goiter or other cause, without mention of thyrotoxic crisis or storm documented in this encounter Care Teams Spar Machine Operator Relationship Specialty Start Date End Date Gita Huang MD [facility] [address] [place] [address] PCP - General Family Medicine 11/13/17 02/19/19 documented as of this encounter
--- OUTSIDE RECORDS SUMMARY | 2024-03-20 22:08 | XMS_ITS | Encounter Summary ---
Author Organization [facility] Address [facility] [place] [address] Care Team Providers Care Trestle Mechanic Name Role Phone Gita Huang MD Primary Care Provider [phone] Encounter Details Date Type Department Care Team (Late st Contact Info) Description 06/14/2018 Telephone [place] [phone] Linda Abdullahi MD [facility] [place] [address] Social History Tobacco Use Types Packs/Day Years [...] encounter Miscellaneous Notes * Telephone Encounter - Linda Abdullahi MD - 06/14/2018 5:55 PM EDT Called and spoke with Yumiko (rhea Dowd). Informed her that her TSH came back slightly elevated suggesting that she is in a recovery phase of a subacute thyroiditis. Her TSI (Graves' antibody) was also negative. There is still a possibility that perhaps she did have Graves' hyperthyroidism and it suddenly wentinto remission, in which case perhaps she has some underlying subclinical hypothyroidism. However Ithink this scenario is less likely. Being that her TSH is under 10 and she is presumed in recovery phase of a temporary thyroiditis now, I explained that starting LT4 supplementation wouldn't be indicated at this time, and may actuallyslow the recovery process. I would like to recheck her TFTs in 1 month, however, and see how they are trending. She lives nearby in [place], [place] so she will come [place] [facility] [place]. documented in this encounter Plan of Treatment Upcoming Encounters Date Type Department Care Team (Late st Contact Info) Description 04/07/2024 3:20 PM EDT Office Visit Dermatology at [facility] [address] [place] [address] Dayanna Ramírez MD [facility] [address] [place] [address] documented as of this encounter Visit Diagnoses Not on filedocumented in this encounter Care Teams Trestle Mechanic Relationship Specialty Start Date End Date Gita Huang MD [facility] [address] [address] PCP - General Family Medicine 11/13/17 02/19/19 documented as of this encounter
--- OUTSIDE RECORDS SUMMARY | 2024-03-20 22:08 | XMS_ITS | Encounter Summary ---
Author Organization [facility] Address [facility] [address] Care Team Providers Care Conveyor Tender Concrete Mixing Plant Name Role Phone Gita Huang MD Primary Care Provider [phone] Encounter Details Date Type Department Care Team (Late st Contact Info) Description 04/16/2018 3:38 PM EDT - 04/16/2018 11:59 PM EDT Hospital Encounter XRay at [address] [place] [address] Gita Huang MD [facility] [address] [place] [address] Cervicalgia Discharge Disposition: Home Social History Tobacco [...] 3:20 PM EDT Office Visit Dermatology at [address] [address] Dayanna Ramírez MD [facility] [address] [address] documented as of this encounter Procedures Procedure Name Priority Date/Time Associated Diagnosis Comments XR CHEST PA AND LATERAL Routine 04/16/2018 3:58 PM EDT Cervicalgia documented in this encounter [...] identified. Gita Huang MD IMG DX ORDERABLES documented in this encounter Visit Diagnoses Diagnosis Cervicalgia documented in this encounter Care Teams Conveyor Tender Con[employer] Mixing Plant Relationship Specialty Start Date End Date Gita Huang MD [facility] [address] [place] [place] [address] PCP - General Family Medicine 11/13/17 02/19/19 documented as of this encounter
--- OUTSIDE RECORDS SUMMARY | 2024-03-20 22:08 | XMS_ITS | Encounter Summary ---
[place] [address] Care Team Providers Care Children'S Aide Name Role Phone Gita Huang MD Primary Care Provider [phone] [phone] Reason for Referral * Consultation (Routine) - Closed Specialty Diagnoses / Procedures Referred By Contac t Referred To Contact Obstetrics and Gynecology Diagnoses Other urinary incontinence Katheryn Ybarra [facility] [place] [address] [facility] Encoding Clerk [address] [place] [phone] Referral ID Status Reason Start Date Expiration Date V isits Requested Visits Authorized [id number] Closed Consult, Test & Treat 11/19/2017 11/19/2018 1 1 * Consultation (Routine) - Closed Specialty Diagnoses / Procedures Referred By Contac t Referred To Contact General Surgery Diagnoses Encounter for gynecological examination without abnormal finding Katheryn Ybarra [facility] [place] [address] Jessica Toscano [facility] [place] [address] Referral ID Status Reason Start Date Expiration Date V isits Requested Visits Authorized [id number] Closed Consult, Test & Treat 11/19/2017 11/19/2018 1 1 Reason for Visit * Reason Comments Annual Exam Encounter Details Date Type Department Care Team (Latest Contact Info) Description 11/19/2017 10:20 AM EDT Office Visit Obstetrics and Gynecology at [facility] [place] [address] Katheryn Ybarra APRN [facility] DR OBSTETRICS & [place] [address] Encounter for gynecological examination without abnormal finding; Low grade squamous intraepithelial lesion on cytologic smear of cervix (LGSIL); Abnormal Pap smear of vagina; Other urinary incontinence Social History Tobacco Use Types Packs/Day Years [...] Sign Reading Time Taken Comments Blood Pressure 126/72 11/19/2017 10:36 AM EDT Pulse 62 11/19/2017 10:36 AM EDT Temperature 36.9 ??C (98.4 ??F) 11/19/2017 10:36 AM E DT Respiratory Rate - - Oxygen Saturation 97% 11/19/2017 10:36 AM EDT Inhaled Oxygen Concentration - - Weight 69.2 kg (152 lb 9.6 oz) 11/19/2017 10:36 AM EDT Height 154.6 cm (5' 0.87) 11/19/2017 10:36 AM E DT Body Mass Index 28.96 11/19/2017 10:36 AM EDT documented in this encounter Progress Notes * Katheryn Ybarra APRN - 11/19/2017 10:20 AM EDT Reason for visit: Annual motion picture commentator exam 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 She is also concerned that she is losing her urine; when she liftsanything, coughing, sneezing, at night when she is sleeping. History left breast mass; exam and mamm o neg in 07/2015. She denies any vaginal bleeding. History of abnormal Paps: 10/2016 bx right vaginal wall VAIN I/LSIL Her last pap smear on 09/11/16 showed ASCUS, +HPV type other than 16/18 Prior past hx: 08/2015 cervical bx LSIL, ECC without dysplasia 06/16/15 ASCUS, +HPV high risk other than 16/18. 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 2013, 2011, 2009, 2008, 2007, 2006 NILM Hx of LEEP in 2005 She is using nothing for control, last menses 2014, now menopausal She not gotten the gardasil vaccine. She denies history of smoking, warts or other STI Past Medical History: Diagnosis Date ??? Ankle sprain ??? Asthma ??? Breast lump left ??? Suzy-Danlos syndrome 2016 ??? Fibromyalgia ??? Myocardial infarct ??? Rheumatoid arthritis Past Surgical History: Procedure Laterality Date ??? COLPOSCOPY 05/18/06 ??? CREATED BY INTERFACE 1999 IVF (twin gestation) ??? HYSTERECTOMY ??? LAPAROSCOPY 1987 Diagnostic laparoscopy for pelvic pain ??? LEEP 06/06/06 WINIFRED ??? PRO COLONOSCOPY, BIOPSY 09/07/2011 COLONOSCOPY FLEXIBLE, WITH BX performed by Desmond WHIPPLE at [facility] ENDOSCOPY ??? PRO UPPER GI ENDOSCOPY, BIOPSY 09/07/2011 EGD WITH BIOPSY performed by Desmond WHIPPLE at [facility] ENDOSCOPY ??? TUBAL LIGATION 1989 J2EE APPLICATION DEVELOPER HX: Pt is a 47 yo G 4 P 5 female. Hx STD: HPV . Last mammogram: 10/2016 neg . Family History Problem Relation Age of Onset ??? Asthma Mother ??? Heart Disease Mother ??? Asthma Brother ??? Heart Disease Brother ??? Ovarian Cancer Maternal Grandmother unclear history, perhaps stomach? Breast Cancer Maternal Grandmother ??? Coronary Artery Disease Maternal Grandmother ??? Breast Cancer Maternal Aunt great aunts ??? Heart Defect Maternal Uncle ??? Coronary Artery Disease Maternal Uncle ??? Alcohol Abuse Neg Hx ??? Substance Abuse Neg Hx Social History Social History ??? Marital status: Spouse name: N/A ??? Number of children: 5 ??? 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 Smoking status: Never Smoker ??? Smokeless tobacco: Never Used ??? Alcohol use No Comment: rare ??? Drug use: No ??? Sexual activity: No Comment: deferred Other Topics Concern ??? Not on file Social History Narrative The patient has 5 children, 17 yo twin daughters and an autistic 28 yo son live with her currently.She has a 30 yo son and 33 yo daughter. 6 grandchildren. Pt is , she is at home raising letitia.. Outpatient Prescriptions Marked as Taking for the 11/19/17 encounter (Office Visit) with Katheryn Ybarra APRN Medication Sig Dispense Refill ??? buPROPion (WELLBUTRIN) 75 mg Tablet Take 75 mg by mouth 2 times daily. ??? [DISCONTINUED] estradiol (ESTRACE) 1 mg Tablet Take 1 tablet by mouth daily. 84 tablet 0 ??? naproxen sodium (ANAPROX) 550 mg Tablet Take 1 tablet by mouth 2 times daily as needed. 60 tablet 2 ??? cetirizine (ZYRTEC) 10 mg Tablet Take 1 tablet by mouth daily. 90 tablet 3 ??? levalbuterol (XOPENEX HFA) 45 mcg/actuation HFA Aerosol Inhaler Inhale 1-2 puffs into the lungsevery 4 hours as needed. 1 Inhaler 3 Allergies as of 11/19/2017 - Review Complete 11/19/2017 Allergen Reaction Noted ??? Latex Rash ??? Azithromycin Anaphylaxis ??? Penicillins Anaphylaxis ??? Epinephrine Other (See Comments) ??? Influenza virus vaccines 04/28/2015 BP 126/72 (BP Location (NBP): Right arm, Patient Position: Sitting, BP Cuff Sizes: Adult (25-34 cm)) Pulse 62 Temp 36.9 ??C (98.4 ??F) (Oral) Ht 154.6 cm (5' 0.87) Wt 69.2 kg (152 lb 9.6 oz) LMP 05/30/2015 SpO2 97% BMI 28.96 kg/m2 PHYSICAL EXAM: Thyroid: Smooth, symmetrical Lungs- Clear Heart- HRR Breasts- Without suspicious masses, puckers or D/C Abdomen- Without masses or tenderness Pelvic exam- [] External Genitalia- pink, shaved; several flat, flesh colored lesions on mons, one slightly raised;wiped with alcohol swab and unroofed Urethral meatus- without masses or lesions Vagina- pink, no abn d/c Cervix- pink, no suspicious lesions, normal d/c, Cervix visualized, pap smear specimen collected w/cytobrush, placed in preservative and sent to cytology, right vaginal sidewall also sampled . Uterus- a/v, without masses, normal size and contour. I was unable to appreciate any vaginal cyst; pt also tried to palpate and could not find but felt it this morning in the shower. Adenexa- without masses Rectovaginal exam- confirms, good tone, no hemorrhoids A: Molluscum contagiosum Abnormal cervical and vaginal biopsy/Pap Fibrocystic breasts Mixed urinary inc P: Showed pt how to unroof lesion with sterile needle. Use disposable razors when shaving. Discouraged from shaving Pap pending [facility] Referral to uro/motion picture commentator documented in this encounter Plan of Treatment Upcoming Encounters Date Type Department Care Team (Late st Contact Info) Description 04/07/2024 3:20 PM EDT Office Visit Dermatology at [address] [place] [address] Dayanna Ramírez MD [facility] DR RAYNE [place] [address] Scheduled Referrals Name Type Priority Associated Diagnoses Orde r Schedule Referral to Comprehensive Breast Program Outpatient Referral Routine Encounter for gynecological examination without abnormal finding Ordered: 11/19/2017 Referral to Urogynecology Outpatient Referral Routine Other urinary incontinence Ordered: 11/19/2017 documented as of this encounter Procedures Procedure Name Priority Date/Time Associated Diagnosis Comments HPV Routine 11/19/2017 12:11 PM EDT J2EE APPLICATION DEVELOPER CYTOLOGY INTERPRETATION Routine 11/19/2017 12:11 PM EDT J2EE APPLICATION DEVELOPER CYTOLOGY FINAL REPORT Routine 11/19/2017 12:11 PM EDT CYTOPATHOLOGY GYNECOLOGICAL Routine 11/19/2017 12:11 PM EDT Low grade squamous intraepithelial lesion on cytologic smear of cervix (LGSIL) Abnormal Pap smear of vagina documented in this encounter Results * (ABNORMAL) J2EE APPLICATION DEVELOPER Cytology Interpretation (11/19/2017 12:11 PM EDT) Non Linear Editor Cytology Interpretation LSIL(A) [facility] Comment:Non Linear Editor Cytology Final R eport Non Linear Editor Cytology Comment Present [facility] Endocervical Component Present [facility] AP Specimen 11/19/2017 12:1 1 PM EDT 11/26/2017 4:21 PM EDT Katheryn Ybarra APRN PATHOLOGY/CYTOLOGY O RDERABLES [facility] [place] [id number] * Non Linear Editor Cytology Final Report (11/19/2017 12:11 PM EDT) Non Linear Editor Cytology Final Report [id number] ? Location: 5L The signing pathologist has (i) examined the relevant preparation(s) for the specimen(s) and (ii) rendered or confirmed the diagnosis(es). . ? Non Linear Editor Final DIAGNOSIS Epithelial Cell Abnormality Low Grade Squamous Intraepithelial Lesion (LSIL). (encompassing: Human Papilloma virus, mild dysplasia and cervical intraepithelial neoplasia (CIN1).) For consensus guidelines for the management of cervical cancer screening test results, please see: ?? http://www.asccp.o rg . Electronically signed by: ??Nikos Hogan MD Verified: ??11/26/2017 ?Pathologist Performed at: ??-[facility] Dept. of Pathology, [place], [place] DISCUSSION Endometrial cell groups present in a sample from a patient over 45 years of age. Endometrial cells in samples from women 45 or older may be associated with benign endometrium, hormonal alterations, and, less commonly, endometrial or uterine abnormalities. Consideration of endometrial evaluation is recommended in postmenopausal women. HPV RESULTS HPV16 (Result) ?Negative HPV18 (Result) ?Negative HPVOHR (Result) ? Positive * HPV (Interpretation) ?See Below HPV (Interpretation) Text: POSITIVE for high-risk HPV* (High risk type other than types 16 or 18): *Testing positive for high risk HPV means that the specimen is positive for at least one of the following 14 types tested: types 16, 18, 31, 33, 35, 39, 45, 51, 52, 56, 58, 59, 66, and 68. Doug hebert HPV test Specimen: HPV Testing - Cytology Liquid Based Prep The Doug hebert ? HPV test was validated, performed and results reported through the Laboratory for Clinical Genomics and Advanced Technology (CGAT) at [facility]. ? - Dre Box, PhD, [facility], Director-[facility] STATEMENT OF ADEQUACY Specimen submitted is satisfactory. Endocervical component present. CLINICAL INFORMATION HPV Option: ?Concurrent HPV and Pap CT/NG Option: ?? No Preparation: ? Liquid based Pap Specimen Source: ? Cervical/Endocervi meka LMP: ? frozen food selector Hormones?: ? No Hysterectomy?: ? No ?: ? No ?: ? No . CLINICAL INFORMATION I.U.D.?: ? No Pelvic Radiation: ?No Prior J2EE APPLICATION DEVELOPER Therapy?: ?Other (comment) Hist Abnl Pap/Biopsy?: ?? Yes, Pap after Cryo, LEEP Hist of HPV Vaccine?: ?No Hist of Smoking?: ?No Hist of CAMERON exposure?: ?? No ICD Diagnosis: ? Z12.4 Encounter for screening for malignant neoplasm of cervix Clinical Data, Significant Therapy and Clinical Impression ?? : ?also right lateral vaginal wall; hx VAIN This Pap Test has been evaluated with the assistance of the Core CompetencePrep Pap Test Imaging System. Note: The Pap test is a screening test for cervical cancer with an inherent false-negative rate dependent upon several variables. For further information please contact the [facility] Laboratory. Reference: Jacquelyn VERDUGO. Continuous Improvement Coordinator of Pap Smear Results. In: Felipe BS, Bob HH, ed. The Pap Smear. [place]: Suraj, 2002: 71-77. [facility] 11/19/2017 12:1 1 PM EDT Katheryn Ybarra APRN PATHOLOGY/CYTOLOGY O RDERABLES [facility] [place] [address] * (ABNORMAL) HPV (11/19/2017 12:11 PM EDT) HPV16 NEGATIVE NEGATIVE [facility] HPV 18 NEGATIVE NEGATIVE [facility] HPV Other HR POSITIVE(A) NEGATIVE [facility] HPV Interpretation See Comment [facility] Comment: POSITIVE for high-risk HPV* (High risk type other than types 16 or 18): * Testing positive for high risk HPV means that the specimen is positive for at least one of the following 14 types tested: ??types 16, 18, 31, 33, 35, 39, 45, 51, 52, 56, 58, 59, 66, and 68. Doug Hebert HPV test Specimen: HPV Testing - Cytology Liquid Based Prep Cervical swab (specimen) 11/19/2017 12:11 PM EDT 11/19/2017 5:28 PM EDT Narrative Resulting Agency Comment Spec In Lab Katheryn Ybarra CIRCULATION TENDER PATHOLOGY/CYTOLOGY O RDERABLES [facility] [place] [address] * Cytopathology Gynecological (11/19/2017 12:11 PM EDT) AP Specimen 11/19/2017 12:1 1 PM EDT 11/19/2017 12:11 PM EDT Narrative [facility] - 11/19/2017 12:11 PM EDT Specimen requisition ordered. ??Separate Pathology report to follow Katheryn L Tate FRANCO PATHOLOGY/CYTOLOGY O RDERABLES Performing Organization Address City/[facility]/ZIP Co de Phone Number [facility] [address] documented in this encounter Visit Diagnoses Diagnosis Encounter for gynecological examination without abnormal finding Routine gynecological examination Low grade squamous intraepithelial lesion on cytologic smear of cervix (LGSIL) Papanicolaou smear of cervix with low grade squamous intraepithelial lesion (LGSIL) Abnormal Pap smear of vagina Abnormal glandular Papanicolaou smear of vagina Other urinary incontinence documented in this encounter Care Teams Children'S Aide Relationship Specialty Start Date End Date Gita Huang MD [facility] DR R[address]NE K[address] [facility] [place] [address] PCP - General Family Medicine 11/13/17 02/19/19 documented as of this encounter
--- OUTSIDE RECORDS SUMMARY | 2024-03-20 22:08 | XMS_ITS | Encounter Summary ---
Author Organization [facility] Address [facility] [place] [address] Care Team Providers Care Motorboat Mechanic Name Role Phone Gita Huang MD Primary Care Provider [phone] Encounter Details Date Type Department Care Team (Latest Contact Info) Description 07/16/2018 12:40 PM EST Laboratory Appointment Lab [address] [place] [phone] Hyperthyroidism Social History Tobacco Use Types Packs/Day [...] 3:20 PM EDT Office Visit Dermatology at [facility] [address] [place] [address] Dayanna Ramírez MD [facility] [place] [address] documented as of this encounter Procedures Procedure Name Priority Date/Time Associated Diagnosis Comments T3, FREE Routine 07/16/2018 12:45 PM EST Hyperthyroidism T3 TOTAL Routine 07/16/2018 12:45 PM EST Hyperthyroidism TSH Routine 07/16/2018 12:45 PM EST Hyperthyroidism T4, FREE Routine 07/16/2018 12:45 PM EST Hyperthyroidism HEPATIC FUNCTION PANEL Routine 07/16/2018 12:45 PM EST Hyperthyroidism documented in this encounter Results * (ABNORMAL) TSH (07/16/2018 12:45 PM EST) Thyroid Stimulating Hormone 4.67(H) 0.27 - 4.20 mlU/ML [facility] Blood specimen (specimen) 07/16/2018 12:45 PM EST 07/16/2018 12:48 PM EST Narrative Resulting Agency Comment Spec In Lab Linda Abdullahi MD CHEMISTRY ORDERABLES Performing Organization Address [facility] [place] [address] * T4, free (07/16/2018 12:45 PM EST) Free T4 0.96 0.93 - 1.70 ng/dL [facility] Blood specimen (specimen) 07/16/2018 12:45 PM EST 07/16/2018 12:48 PM EST Narrative Resulting Agency Comment Spec In Lab Linda Abdullahi MD CHEMISTRY ORDERABLES Performing Organization Address City/[facility]/ZIP Co de Phone Number [facility] [place] [address] * T3 Total (07/16/2018 12:45 PM EST) T3 Total 88 75 - 170 ng/dL [facility] Blood specimen (specimen) 07/16/2018 12:45 PM EST 07/16/2018 12:48 PM EST Narrative Resulting Agency Comment Spec In Lab Linda Abdullahi MD CHEMISTRY ORDERABLES Performing Organization Address City/[facility]/ZIP Co de Phone Number [facility] [place] [address] * T3, free (07/16/2018 12:45 PM EST) Free T3 2.2 2.0 - 4.4 pg/mL [facility] Blood specimen (specimen) 07/16/2018 12:45 PM EST 07/16/2018 12:48 PM EST Narrative Resulting Agency Comment Spec In Lab Linda Abdullahi MD CHEMISTRY ORDERABLES Performing Organization Address City/[facility]/ZIP Co de Phone Number [facility] [place] [address] * Hepatic Function Panel (07/16/2018 12:45 PM EST) Protein, Total 7.2 6.1 - 8.0 gm/dL [facility] Albumin 4.4 3.2 - 5.2 gm/dL [facility] Aspartate Aminotransferase 16 0 - 30 unit/L [facility] Alanine Aminotransferase 11 0 - 30 unit/L [facility] Alkaline Phosphatase 88 40 - 104 unit/L [facility] Bilirubin, Total 0.4 0.2 - 1.3 mg/dL [facility] Bilirubin, Direct 0.1 0.0 - 0.3 mg/dL [facility] Blood specimen (specimen) 07/16/2018 12:45 PM EST 07/16/2018 12:48 PM EST Narrative Resulting Agency Comment Spec In Lab Linda Abdullahi MD CHEMISTRY ORDERABLES Performing Organization Address City/[facility]/ZIP Co de Phone Number [facility] [place] [address] documented in this encounter Visit Diagnoses Diagnosis Hyperthyroidism Thyrotoxicosis without mention of goiter or other cause, without mention of thyrotoxic crisis or storm documented in this encounter Care Teams Motorboat Mechanic Relationship Specialty Start Date End Date Gita Huang MD [facility] [place] [address] PCP - General Family Medicine 11/13/17 02/19/19 documented as of this encounter
--- OUTSIDE RECORDS SUMMARY | 2024-03-20 22:08 | XMS_ITS | Encounter Summary ---
Author Organization [facility] [place] [address] Care Team Providers Care International Travel Consultant Name Role Phone Gita Huang MD Primary Care Provider [phone] Encounter Details Date Type Department Care Team (Latest Contact Info) Description 11/13/2018 12:15 PM EDT Laboratory Appointment Lab [address] [place] [phone] Hyperthyroidism Social History Tobacco Use Types Packs/Day [...] 3:20 PM EDT Office Visit Dermatology at [facility] [address] [place] [address] Dayanna Ramírez MD [facility] DR [address] [address] documented as of this encounter Procedures Procedure Name Priority Date/Time Associated Diagnosis Comments T3, FREE Routine 11/13/2018 12:29 PM EDT Hyperthyroidism T3 TOTAL Routine 11/13/2018 12:29 PM EDT Hyperthyroidism TSH Routine 11/13/2018 12:29 PM EDT Hyperthyroidism T4, FREE Routine 11/13/2018 12:29 PM EDT Hyperthyroidism HEPATIC FUNCTION PANEL Routine 11/13/2018 12:29 PM EDT Hyperthyroidism documented in this encounter Results * TSH (11/13/2018 12:29 PM EDT) Thyroid Stimulating Hormone 3.04 0.27 - 4.20 mcIU/mL [facility] Blood specimen (specimen) 11/13/2018 12:29 PM EDT 11/13/2018 12:54 PM EDT Narrative Resulting Agency Comment Spec In Lab Linda Abdullahi MD CHEMISTRY ORDERABLES Performing Organization Address [facility]/ZIP Co de Phone Number [facility] [place] [address] * T4, free (11/13/2018 12:29 PM EDT) Free T4 1.20 0.93 - 1.70 ng/dL [facility] Blood specimen (specimen) 11/13/2018 12:29 PM EDT 11/13/2018 12:54 PM EDT Narrative Resulting Agency Comment Spec In Lab Linda Abdullahi MD CHEMISTRY ORDERABLES Performing Organization Address City/[facility]/ZIP Co de Phone Number [facility] [place] [address] * T3 Total (11/13/2018 12:29 PM EDT) T3 Total 103 75 - 170 ng/dL [facility] Blood specimen (specimen) 11/13/2018 12:29 PM EDT 11/13/2018 12:54 PM EDT Narrative Resulting Agency Comment Spec In Lab Linda Abdullahi MD CHEMISTRY ORDERABLES [facility] [place] [address] * T3, free (11/13/2018 12:29 PM EDT) Free T3 2.6 2.0 - 4.4 pg/mL [facility] Blood specimen (specimen) 11/13/2018 12:29 PM EDT 11/13/2018 12:54 PM EDT Narrative Resulting Agency Comment Spec In Lab Lnida Abdullahi MD CHEMISTRY ORDERABLES Performing Organization Address City/[facility]/ZIP Co de Phone Number [facility] [place] [address] * Hepatic Function Panel (11/13/2018 12:29 PM EDT) [facility] Protein, Total 7.9 6.1 - 8.0 gm/dL [facility] Albumin 4.8 3.2 - 5.2 gm/dL [facility] Aspartate Aminotransferase 17 0 - 30 unit/L [facility] Alanine Aminotransferase 12 0 - 30 unit/L [facility] Alkaline Phosphatase 91 40 - 104 unit/L [facility] Bilirubin, Total 0.7 0.2 - 1.3 mg/dL [facility] Bilirubin, Direct 0.1 0.0 - 0.3 mg/dL [facility] Blood specimen (specimen) 11/13/2018 12:29 PM EDT 11/13/2018 12:54 PM EDT Narrative Resulting Agency Comment Spec In Lab Linda Abdullahi MD CHEMISTRY ORDERABLES Performing Organization Address City/[facility]/ZIP Co de Phone Number [facility] [place] [address] documented in this encounter Visit Diagnoses Diagnosis Hyperthyroidism Thyrotoxicosis without mention of goiter or other cause, without mention of thyrotoxic crisis or storm documented in this encounter Care Teams International Travel Consultant Relationship Specialty Start Date End Date Gita Huang MD [facility] [address] [place] [address] PCP - General Family Medicine 11/13/17 02/19/19 documented as of this encounter
--- OUTSIDE RECORDS SUMMARY | 2024-03-20 22:08 | XMS_ITS | Encounter Summary ---
Author Organization [facility] Address [facility] [place] [address] Care Team Providers Care Gym Instructor Name Role Phone Billie Ly MD Primary Care Provider [phone] Encounter Details Date Type Department Care Team (Late st Contact Info) Description 09/23/2019 Tele[address] [facility] [address] [place] [phone] Alyce Culver Social History Tobacco Use Types Packs/Day Years [...] EDT Office Visit Dermatology at [facility] [address] [place] [phone] Dayanna Ramírez MD [facility] [place] [address] documented as of this encounter Visit Diagnoses Not on filedocumented in this encounter Care Teams Gym Instructor Relationship Specialty Start Date End Date Billie Ly MD [facility] [address] [place] [address] PCP - General Family Medicine 02/20/19 03/20/21 documented as of this encounter
--- OUTSIDE RECORDS SUMMARY | 2024-03-20 22:08 | XMS_ITS | Encounter Summary ---
Author Organization [facility] Address [facility] [place] [address] Care Team Providers Care Cake Maker Name Role Phone Billie Ly MD Primary Care Provider [phone] Encounter Details Date Type Department Care Team (Late st Contact Info) Description 09/23/2019 Refill Internal Medicine at [facility] [address] [place] [address] Alyce Culver NEENA (juvenile idiopathic arthritis) Social History Tobacco [...] Telephone Encounter - Nakita Wells RN - 09/23/2019 2:31 PM EST Call to pt. Identified by name and . Pt is previous pt of . Last seen in clinic 04/24/18. Pt states she is now living in [place], [place]. In process of finding new PCP closer to home. In meantime, pt is in need of refill of Naproxen. Last refilled x 1yr. Offered OTC Aleve. Pt states she has tried this in past and is not as effective. Given multiple medical issues pt prefers not to try something new. Advised I will forward request to present listed PCP but can not promise refill without a visit. Pt states understanding and agreement. * Telephone Encounter - Alyce Culver - 09/23/2019 1:47 PM EST Spoke to patient about getting scheduled for an establish care appointment. Patient is in a lot of pain having a hard time. Said shes trying to get new PCP due to not getting medications refilled. Pt would be willing to come in for an appt in spring. The medication she is needing is Naproxen 550 MG. Please call patient to discuss if this can be refilled with a spring appointment? Thanks! documented in this encounter Plan of Treatment Upcoming Encounters Date Type Department Care Team (Late st Contact Info) Description 04/07/2024 3:20 PM EDT Office Visit Dermatology at [facility] [address] [place] [address] Dayanna Ramírez MD [facility] [address] [place] [address] documented as of this encounter Visit Diagnoses Diagnosis NEENA (juvenile idiopathic arthritis) Other specified inflammatory polyarthropathies documented in this encounter Care Teams Cake Maker Relationship Specialty Start Date End Date Billie Ly MD [facility] DR [address] [place] [address] PCP - General Family Medicine 02/20/19 03/20/21 documented as of this encounter
--- OUTSIDE RECORDS SUMMARY | 2024-03-20 22:08 | XMS_ITS | Encounter Summary ---
Author Organization [facility] [place] [address] Care Team Providers Care Mixer Attendant Name Role Phone Gita Huang MD Primary Care Provider [phone] Reason for Referral * Consultation (Routine) - Closed Specialty Diagnoses / Procedures Referred By Contac t Referred To Contact Endocrinology Diagnoses Hyperthyroidism Gita Huang MD [facility] [place] [address] [facility] [address] [place] [phone] Referral ID Status Reason Start Date Expiration Date V isits Requested Visits Authorized [id number] Closed Consult, Test & Treat 04/18/2018 04/18/2019 1 1 Encounter Details Date Type Department Care Team (Late st Contact Info) Description 04/18/2018 Orders Only Family Medicine at [facility] [address] [place] [address] Gita Huang MD [facility] [place] [address] Hyperthyroidism Social History Tobacco Use [...] [facility] [address] [place] [address] Dayanna Ramírez MD [facility] DR [address] [place] [address] Scheduled Referrals Name Type Priority Associated Diagnoses Order Schedule Referral to Endocrinology Outpatient Referral Routine Hyperthyroidism Ordered: 04/18/2018 documented as of this encounter Visit Diagnoses Diagnosis Hyperthyroidism Thyrotoxicosis without mention of goiter or other cause, without mention of thyrotoxic crisis or storm documented in this encounter Care Teams Mixer Attendant Relationship Specialty Start Date End Date Gita Huang MD [facility] [place] [address] PCP - General Family Medicine 11/13/17 02/19/19 documented as of this encounter
--- OUTSIDE RECORDS SUMMARY | 2024-03-20 22:08 | XMS_ITS | Encounter Summary ---
Author Organization [facility] Address [facility] [place] [address] Care Team Providers Care Occupational Therapy Technician Name Role Phone Billie Ly MD Primary Care Provider [phone] Encounter Details Date Type Department Care Team (Late st Contact Info) Description 03/13/2019 Orders [place] [address] Juliette Garza, FACILITIES COORDINATOR [facility] GASTROENTEROLOGY [place] [address] Social History Tobacco Use Types Packs/Day Years [...] [facility] [address] [place] [address] Dayanna Ramírez MD [facility] DR [address] [place] [address] documented as of this encounter Visit Diagnoses Not on filedocumented in this encounter Care Teams Occupational Therapy Technician Relationship Specialty Start Date End Date Billie Ly MD [facility] [address] [place] [address] PCP - General Family Medicine 02/20/19 03/20/21 documented as of this encounter
--- OUTSIDE RECORDS SUMMARY | 2024-03-20 22:08 | XMS_ITS | Encounter Summary ---
Author Organization [facility] [place] [address] Care Team Providers Care Project Specialist Name Role Phone Gita Huang MD Primary Care Provider [phone] Reason for Visit * Reason Comments Urinary Incontinence * Consultation (Routine) - Closed Specialty Diagnoses / Procedures Referred By Contac t Referred To Contact Obstetrics and Gynecology Diagnoses Other urinary incontinence Katheryn Ybarra APRN [facility] DR OBSTETRICS & [place] [address] [facility] Administrative Assistant [address] [place] [address] Referral ID Status Reason Start Date Expiration Date V isits Requested Visits Authorized [id number] Closed Consult, Test & Treat 11/19/2017 11/19/2018 1 1 Encounter Details Date Type Department Care Team (Late st Contact Info) Description 01/22/2018 3:00 PM EDT Office Visit Obstetrics [place] [address] Kirt Fitzgerald MD [facility] [place] [address] Mixed stress and urge urinary incontinence (Primary Dx); Rectocele Social History Tobacco Use Types Packs/Day Years [...] Sign Reading Time Taken Comments Blood Pressure 131/61 01/22/2018 2:53 PM EDT Pulse 65 01/22/2018 2:53 PM EDT Temperature 37 ??C (98.6 ??F) 01/22/2018 2:53 PM EDT Respiratory Rate - - Oxygen Saturation 99% 01/22/2018 2:53 PM EDT Inhaled Oxygen Concentration - - Weight 68.9 kg (152 lb) 01/22/2018 2:53 PM EDT Height 155.6 cm (5' 1.25) 01/22/2018 2:53 PM ED T Body Mass Index 28.49 01/22/2018 2:53 PM EDT documented in this encounter Progress Notes * Kirt Fitzgerald MD - 01/22/2018 3:00 PM EDT Female Pelvic Medicine and Reconstructive Surgery @ [facility] Patient Name: Yumiko Chang Patient Primary Care Provider: Gita Huang MD Patient Active Problem List Diagnosis Code ??? PTSD (post-traumatic stress disorder) F43.10 ??? Stress and urge incontinence ??? Breast pain N64.4 ??? NEENA (juvenile idiopathic arthritis) M08.90 ??? Fibrocystic breast N60.19 ??? Hypermobile joints M24.9 ??? H/O sciatica Z86.69 ??? Disc disease, degenerative, cervical M50.30 ??? 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 Abnormal Pap smear of cervix R87.619 ??? Asthma J45.909 ??? Myocardial infarct I21.9 ??? Rheumatoid arthritis M06.9 ??? Neuropathic pain M79.2 ??? Cervicalgia M54.2 ??? 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 Fibromyalgia M79.7 ??? Gastroesophageal reflux K21.9 ??? Abdominal pannus E65 Chief Complaint: SUKHWINDER History of Present Illness: Ms. Chang is a 48 y.o. old para 5 woman, seen at the kind request of Katheryn Ybarra. 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 Both SUKHWINDER and UUI affect her equally. Tried anti-cholinergic but throat closed over due to dryness. Stopped periods 3 years ago. No PMB. Has long h/o abdominal cramping, prone to constipation - worked with GI (Juliette Livingston). Was on dietary changes, had EGD + colonoscopy - had polypectomies. Has been on stool softeners but no change. Avoids gluten. Finds that a greasy meal helps her have a BM. Goals for this visit 1. Address UI Urinary tract history Patient denies history of recurrent urinary tract infection. Patient denies history of pyelonephritis. Patient denies history of urinary tract abnormality. Patient denies history of nephrolithiasis. Patient denies history of hematuria. Bladder irritants: Fluid intake: water Caffeine intake: Coffee x4 in morning - symptoms worse Cigarette smoking (packs, time, if quit when): no Alcohol: no Bladder Function Urinary incontinence: yes No. episodes: x3-4 Pad use (per day): 3-4 Pad type: liners Daytime voids: Every 30-60 mins Nocturia: x1-2 Previous urinary incontinence treatment (Medical/Behavioral/Surgical): no Storage symptoms x Urinary frequency Nocturia x Stress urinary incontinence - leakage with exertion, cough/sneeze x Urge urinary incontinence - leakage preceded immediately by urge to void Noctural enuresis - NOT IN ASSOCIATION WITH URGE Continuous urinary leakage Other: (e,g. giggle, intercourse-related) Bladder sensation Normal - aware of filling and increased sensation up to desire to void x Increased - feels an early and persistent need to void Reduced - aware of filling but NOT definite desire to void Absent - NO sensation of filling or need to void Non-specific - No specific bladder symptoms during filling or void Voiding symptoms None x Slow stream Spraying Intermittent stream - stop/start on > 1 occasion during void Straining - muscular effort to initiate, maintain OR improve stream Terminal dribble - prolonged final part of void x Feeling of incomplete emptying Pelvic Organ Prolapse (POP) Any personally see or feel a vaginal bulge? no Bowel Function Fecal incontinence (yes/no): no Number of bowel movements (day/week): x1-2/day Defecatory Dysfunction: Symptom Presence Symptom Presence NONE Incomplete Emptying x Straining x Infrequent stools (<3 week) Splinting Abdominal discomfort x Loose stools Defecatory urgency x Hard stools x Other Sexual Function Active?: no Pain with intercourse?: yes If yes, insertional/Deep? deep Desire to retain sexual function? yes Per prior Katheryn Tate's note: History of abnormal Paps: 10/2016 bx right [...] 2006 NILM Hx of LEEP in 2005 Past Medical History: Diagnosis Date ??? Ankle sprain ??? Asthma ??? Breast lump left ??? Suzy-Danlos syndrome 2016 ??? Fibromyalgia ??? Myocardial infarct ??? Rheumatoid arthritis [place] was 15 years ago, no incidents since and no apparent residual cardiac deficit Past Surgical History: Procedure Laterality Date ??? COLPOSCOPY 05/18/06 ??? CREATED BY INTERFACE 1999 IVF (twin gestation) ??? HYSTERECTOMY ??? LAPAROSCOPY 1988 Diagnostic laparoscopy for pelvic pain ??? LEEP 06/06/06 WINFIRED ??? PRO COLONOSCOPY, BIOPSY 09/07/2011 COLONOSCOPY FLEXIBLE, WITH BX performed by Desmond WHIPPLE at [facility] ??? PRO UPPER GI ENDOSCOPY, BIOPSY 09/07/2011 EGD WITH BIOPSY performed by Desmond WHIPPLE at [facility]COPY ??? TUBAL LIGATION 1989 Obstetric History T4 L5 SAB0 TAB0 Ectopic0 Multiple2 Live Births0 # Outcome Date GA Lbr Edgard/2nd Weight Sex Delivery Anes PTL Lv 4A Term Vag-Spont 4B Term Vag-Spont 3 Term Vag-Spont 2 Term Vag-Spont 1 Term Vag-Spont Outpatient Prescriptions Marked as Taking for the 01/22/18 encounter (Office Visit) with Kirt Fitzgerald MD Medication Sig Dispense Refill ??? buPROPion (WELLBUTRIN XL) 150 mg Tablet Extended Release 24 hr ??? [DISCONTINUED] buPROPion (WELLBUTRIN) 75 mg Tablet Take 75 mg by mouth 2 times daily. ??? sertraline (ZOLOFT) 100 mg Tablet Take 1 tablet by mouth daily. 90 tablet 1 ??? naproxen sodium (ANAPROX) 550 mg Tablet Take 1 tablet by mouth 2 times daily as needed. 60 tablet 2 ??? cetirizine (ZYRTEC) 10 mg Tablet Take 1 tablet by mouth daily. (Patient taking differently: Take 10 mg by mouth daily as needed.) 90 tablet 3 ??? levalbuterol (XOPENEX HFA) 45 mcg/actuation HFA Aerosol Inhaler Inhale 1-2 puffs into the lungsevery 4 hours as needed. 1 Inhaler 3 Allergies Allergen Reactions ??? Latex Rash ??? Azithromycin Anaphylaxis ??? Penicillins Anaphylaxis ??? Epinephrine Other (See Comments) fast heart rate ??? Influenza Virus Vaccines Declines based on prior fevers, fatigue. Social History Social History ??? Marital status: Spouse name: N/A ??? Number of children: 5 ??? 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 [...] , she is at home raising letitia.. Family History Problem Relation Age of Onset [...] Neg Hx ??? Substance Abuse Neg Hx Family history: reports history of gynecologic cancer ROS: Review of all other systems negative except for those mentioned above or indicated below: System Symptom Presence Constitutional Weight Loss Weight gain x Eyes History of glaucoma ENT/Mouth Mouth sores/Dry mouth Cardiovascular Chest pain Leg swelling Respiratory Wheezing SOB GI Nausea/vomiting Abdominal pain Skin/Breast Breast masses Rash/ulcer Musculoskeletal Muscle weakness Trouble Walking Neurological Dizziness/falling Numbness Psychiatric Depression Anxiety Endocrine Abnormal thirst Hot flashes Hematologic Frequent bruising History of blood transfusions Blood clots (DVT / PE) Prior problems w/ anesthesia Can't tolerate epinephrine Outside medical records reviewed: yes Data reviewed (images/urodynamic studies): To further delineate patient's urinary symptoms, a urinedip test and postvoid residual via bladder scanner were obtained. Results for orders placed or performed in visit on 01/22/18 POCT urine dipstick Result Value Ref Range POC Sp [place] WNL 1.002 - 1.030 POC pH, UA WNL 5.0 - 8.5 POC Leuk, UA Neg. Negative - Negative POC Nitrite, UA Neg. Negative - Negative POC Protein, UA Neg. Negative - Negative mg/dL POC Glucose, UA Norm. Normal - Normal mg/dL POC Ketone, UA Neg. Negative - Negative POC Urobil, UA Norm. 0.2 - 1.0 mg/dL POC Bili, UA Neg. Negative - Negative POC Blood, UA Neg. Negative - Negative efra/uL Bladder Scanner Result Value Ref Range Bladder Scan (mL) 15 mL OBJECTIVE: BP 131/61 Pulse 65 Temp 37 ??C (98.6 ??F) (Oral) Ht 155.6 cm (5' 1.25) Wt 68.9 kg (152 lb) LMP 05/30/2015 SpO2 99% BMI 28.49 kg/m2 General: normal appearing female, pleasant mood, normal speech Skin: skin of abdomen/pelvis normal Respiratory: clear to auscultation bilaterally Neuro: no paraspinous tenderness; saddle sensory function (S2-4) intact in the pelvic area to touch Cardiac: regular rate and rhythm, no appreciated murmurs Gastrointestinal: no palpable masses/organomegaly, soft/nontender, no appreciable hernia Musculoskeletal: levator ani tone (0-5): 2, levator ani contraction (0-5): 4, no levator tenderness; lower extremity motor 5/5 bilaterally Pelvic: Cough stress test (empty supine): neg External Genitalia: Vulva, Rutledge's and Bartholin glands normal, urethra without tenderness or mass Vagina: With Valsalva, the anterior vaginal wall comes -2 cm above the hymen, the posterior vagina wall comes -1 cm above the hymen, and the cervix/apex comes -6 cm above the hymen Atrophic epithelium (yes/no)?: no Discharge?: no Cervix: normal Bimanual (uterus/adnexa): normal Rectovaginal: Enterocele: no Rectocele: yes Anal sphincter: Resting tone: 4/5 Anal wink: present External anal sphincter: intact POP Q Measurements: Aa -2 Ba -2 C -6 GH 2, 2 PB 2, 2 TVL 8 Ap -1 Bp -1 D -7 Impression: Ms. Chang is a .48 y.o. woman with: ?? Mixed UI ?? Pelvic organ prolapse stage 2, involving the posterior vaginal wal Recommendations: I reviewed the anatomy and physiology of mixed UUI and SUKHWINDER. We discussed options for management including: Continued observation, pelvic floor exercises (supervised or unsupervised), pessary and/or surgery. Discussed lifestyle changes for mixed UI - avoidance of bladder irritants. Also discussed medical therapy for UUI but patient declined anti-cholinergics due to prior intolerance (throat closing overdue to dryness) plus declines Myrbetriq due to h/o [place] and desire to avoid anything that could raise her BP. Therefore, discussed third line therapies, including Bladder Botox and Interstim. \ For her stress urinary incontinence We discussed the options of expectant management, pelvic floor muscle exercises, pelvic floor physical therapy, and surgery for treatment of stress urinary incontinence. We also discussed the use of an incontinence dish pessary to reduce urine leakage. We discussed the surgery for stress urinary incontinence would involve a sling being placed at the level of the midurethra with permanent mesh material versus another anti-incontinence procedure. Have requested urodynamics to further evaluate UI since patient was anxious during today's exam andwas not comfortable demonstrating the SUKHWINDER she has at home. PLAN: Based on the patients expressed goals for management I have recommended the following: - Urodynamics - Possible Bladder Botox injection versus further discussion regarding surgery for SUKHWINDER Uridynamics and Surgery for SUKHWINDER informational pamphlets given to patient Kirt Fitzgerald MD Division of Female Pelvic Medicine/Reconstructive Surgery CC: MD Katheryn Irwin documented in this encounter Plan of Treatment Upcoming Encounters Date Type Department Care Team (Late st Contact Info) Description 04/07/2024 3:20 PM EDT Office Visit Dermatology at [facility] [address] [place] [phone] Dayanna Ramírez MD [facility] [address] RAYNE [place] [address] documented as of this encounter Procedures Procedure Name Priority Date/Time Associated Diagnosis Comments BLADDER SCANNER Routine 01/22/2018 Mixed stress and urge urinary incontinence POCT URINE DIPSTICK Routine 01/22/2018 Mixed stress and urge urinary incontinence documented in this encounter Results * Bladder Scanner (01/22/2018) Bladder Scan (mL) 15 mL Kirt Fitzgerald MD URO PROC W/O RFL ORD ERABLES * POCT urine dipstick (01/22/2018) POC Sp [place] WNL 1.002 - 1.030 POC pH, UA WNL 5.0 - 8.5 POC Leuk, UA Neg. Negative - Negative POC Nitrite, UA Neg. Negative - Negative POC Protein, UA Neg. Negative - Negative mg/dL POC Glucose, UA Norm. Normal - Normal mg/dL POC Ketone, UA Neg. Negative - Negative POC Urobil, UA Norm. 0.2 - 1.0 mg/dL POC Bili, UA Neg. Negative - Negative POC Blood, UA Neg. Negative - Negative efra/uL Kirt Fitzgerald MD POINT OF CARE TEST O RDERABLES documented in this encounter Visit Diagnoses Diagnosis Mixed stress and urge urinary incontinence- Primary Mixed incontinence urge and stress (male)(female) Rectocele documented in this encounter Care Teams Project Specialist Relationship Specialty Start Date End Date Gita Huang MD [facility] [place] [place] [address] PCP - General Family Medicine 11/13/17 02/19/19 documented as of this encounter
--- OUTSIDE RECORDS SUMMARY | 2024-03-20 22:08 | XMS_ITS | Encounter Summary ---
Author Organization [facility] [place] [address] Care Team Providers Care Employment Service Specialist Name Role Phone Gita Huang MD Primary Care Provider [phone] Encounter Details Date Type Department Care Team (Late st Contact Info) Description 04/17/2018 Orders Only Family Medicine at [facility] [address] [place] [address] Gita Huang MD [facility] [address] RAYNE [place] [address] Thyroid mass Social History Tobacco Use Types [...] EDT Office Visit Dermatology at [facility] [address] [address] Dayanna Ramírez MD [facility] DR RAYNE [place] [address] documented as of this encounter Results * (ABNORMAL) TSH (04/18/2018 12:32 PM EDT) Thyroid Stimulating Hormone 0.02(L) 0.27 - 4.20 mlU/ML [facility] Blood specimen (specimen) 04/18/2018 12:32 PM EDT 04/18/2018 12:37 PM EDT Narrative Resulting Agency Comment Spec In Lab Gita Huang MD CHEMISTRY ORDERABLE S Performing Organization Address [facility]/ZIP Co de Phone Number [facility] [place] [address] * (ABNORMAL) T3, free (04/18/2018 12:32 PM EDT) Free T3 5.0(H) 2.0 - 4.4 pg/mL [facility] Blood specimen (specimen) 04/18/2018 12:32 PM EDT 04/18/2018 12:37 PM EDT Narrative Resulting Agency Comment Spec In Lab Gita Huang MD CHEMISTRY ORDERABLE S Performing Organization Address [facility] Co de Phone Number [facility] [place] [address] * (ABNORMAL) T4 Total (04/18/2018 12:32 PM EDT) T4 Total 15.4(H) 5.1 - 10.8 mcg/dL [facility] Comment: Reference Range: Cord Blood: ??6.9-14.4 mcg/dL Females: ??7.2-14.2 mcg/dL Pediatric ranges: ??Interpret with caution-ranges have not been verified Blood specimen (specimen) 04/18/2018 12:32 PM EDT 04/18/2018 12:37 PM EDT Narrative Resulting Agency Comment Spec In Lab Gita Huang MD CHEMISTRY ORDERABLE S Performing Organization Address [facility]/ZIP Co de Phone Number [facility] [place] [address] * (ABNORMAL) T4, free (04/18/2018 12:32 PM EDT) Free T4 2.20(H) 0.93 - 1.70 ng/dL [facility] Blood specimen (specimen) 04/18/2018 12:32 PM EDT 04/18/2018 12:37 PM EDT Narrative Resulting Agency Comment Spec In Lab Gita Huang MD CHEMISTRY ORDERABLE S Performing Organization Address City/[facility]/ZIP Co de Phone Number [facility] [place] [address] * Thyroglobulin Antibody (04/18/2018 12:32 PM EDT) Thyroglob Ab <20.0 0.0 - 40.0 IU/mL [facility] Blood specimen (specimen) 04/18/2018 12:32 PM EDT 04/19/2018 7:18 AM EDT Narrative Resulting Agency Comment Spec In Lab Gita Huang MD LAB SEND OUT ORDERA BLES Performing Organization Address [facility]/ZIP Co de Phone Number [facility] [place] [address] documented in this encounter Visit Diagnoses Diagnosis Thyroid mass Unspecified disorder of thyroid documented in this encounter Care Teams Employment Service Specialist Relationship Specialty Start Date End Date Gita Huang MD [facility] [address] RAYNE [place] [address] PCP - General Family Medicine 11/13/17 02/19/19 documented as of this encounter
--- OUTSIDE RECORDS SUMMARY | 2024-03-20 22:08 | XMS_ITS | Encounter Summary ---
Author Organization [facility] [place] [address] Care Team Providers Care Sprinkler Worker Name Role Phone Gita Huang MD Primary Care Provider [phone] Reason for Visit * Reason Comments Pharyngitis * Consultation (Routine) - Closed Specialty Diagnoses / Procedures Referred By Diego ramos Referred To Contact Otolaryngology Diagnoses Throat burning Linda Abdullahi MD [facility] ENDOCRINOLOGY [place] [address] Michelle Watkins BINDING BENCH WORKER [facility] OTOLARYNGOLOGY [place] [address] Referral ID Status Reason Start Date Expiration Date V isits Requested Visits Authorized [id number] Closed Consult, Test & Treat 12/19/2018 12/19/2019 1 1 Encounter Details Date Type Department Care Team (Late st Contact Info) Description 01/09/2019 2:30 PM EDT Office [place] [address] Michelle Watkins APRN [facility] DR VANNOLARYNGOLOGMichelle [place] [address] Globus sensation; Gastric reflux Social History Tobacco Use Types Packs/Day Years [...] - Inhaled Oxygen Concentration - - Weight 73.7 kg (162 lb 8 oz) 01/09/2019 2:50 PM EDT Height 157.5 cm (5' 2) 01/09/2019 2:50 PM EDT Body Mass Index 29.72 01/09/2019 2:50 PM EDT documented in this encounter Progress Notes * RolandMichelle Judd, BINDING BENCH WORKER - 01/09/2019 2:30 PM EDT Otolaryngology Outpatient Consultation Note Date of Visit: 01/09/2019 Location of Visit: Otolaryngology Clinic, [facility] Patient: Yumiko Chang ([id number] ; 1970 Primary Care Provider: Gita Huang MD Referring Provider: Linda Abdullahi Reason for Visit: Yumiko is a 48 y.o. female with throat swelling a year ago seen at the request of Linda Abdullahi. History of Present Illness: Yumiko presents with throat feeling swollen and the sensation of hands around her neck. She has difficulty laying flat at night as she can't breathe as well and she does get mucus in the back of her throat. She has had a hx of hyperthyroid and has increased weight over the last year. Her thyroid is under control currently. She just had her youngest children graduate andis having some stress issues in her life. No hx of smoking. No chronic nasal congestion or sinus issues. She denies any significant reflux issues. Past Medical History: Past Medical History: Diagnosis Date ??? Ankle sprain ??? Asthma ??? Breast lump left ??? Suzy-Danlos syndrome 2017 ??? Fibromyalgia ??? Myocardial infarct ??? Rheumatoid arthritis Past Surgical History: Past Surgical History: Procedure Laterality Date ??? COLPOSCOPY 05/18/06 ??? CREATED BY INTERFACE 1999 IVF (twin gestation) ??? LAPAROSCOPY 1988 Diagnostic laparoscopy for pelvic pain ??? LEEP 06/06/06 WINIFRED ??? PRO COLONOSCOPY, BIOPSY 09/07/2011 COLONOSCOPY FLEXIBLE, WITH BX performed by Desmond WHIPPLE at [facility] ??? PRO UPPER GI ENDOSCOPY, BIOPSY 09/07/2011 EGD WITH BIOPSY performed by Desmond WHIPPLE at [facility] ??? TUBAL LIGATION 1989 Medications: Current Outpatient Medications on File Prior to Visit Medication Sig Dispense Refill ??? sertraline (ZOLOFT) 100 mg Tablet Take 1 tablet by mouth daily. Indications: Anxiety with Depression 90 tablet 3 ??? naproxen sodium (ANAPROX) 550 mg Tablet Take 1 tablet by mouth 2 times daily as needed. 60 tablet 2 ??? buPROPion (WELLBUTRIN XL) 150 mg Tablet Extended Release 24 hr Take 1 tablet by mouth every morning. Indications: Anxiety with Depression 90 tablet 0 ??? cetirizine (ZYRTEC) 10 mg Tablet Take 1 tablet by mouth daily. 90 tablet 3 ??? levalbuterol (XOPENEX HFA) 45 mcg/actuation HFA Aerosol Inhaler Inhale 1-2 puffs into the lungsevery 4 hours as needed. 1 Inhaler 3 ??? oxybutynin (DITROPAN XL) 10 mg Tablet Extended Rel 24 hr Take 1 tablet by mouth daily. (Patientnot taking: Reported on 12/19/2018) 90 tablet 3 No current facility-administered medications on file prior to visit. Allergies: Latex; Azithromycin; Penicillins; Epinephrine; and Influenza virus vaccines Social History: Yumiko Chang [place] [id number],. Family History: Family History Problem Relation Age of Onset [...] Neg Hx ??? Substance Abuse Neg Hx Review of Systems: Pertinent positive findings discussed above. No other findings on review of constitutional, visual, cardiovascular, respiratory, gastrointestinal, genitourinary, musculoskeletal, dermatologic, neurological, psychiatric, endocrine, hematologic or immunologic systems. Physical Examination: Vitals: Height 157.5 cm (5' 2), weight 73.7 kg (162 lb 8 oz), last menstrual period 05/30/2015. General: A pleasant 48 y.o. In no acute distress. Face: Full and symmetric facial movement. No dysmorphic facial features. Ears: Auricles symmetric without lesions. External auditory canals clear. Right tympanic membrane clear. right middle ear aerated. Left tympanic membrane clear. left middle ear aerated. Nose: Patent anteriorly with adequate airflow, healthy pink mucosa. Septum is midline without significant deviation. Inferior turbinates wnl Mouth: Lips and gingiva pink, moist, without lesions. Age-appropriate dentition healthy. Tongue andfloor of mouth soft without lesions or masses. Hard palate without lesions. Pharynx: Soft palate without lesions. Uvula is intact without evidence of submucus cleft palate. Oropharynx symmetric. Neck: Soft, supple, without significant lymphadenopathy. Thyroid gland without masses or asymmetry.Trachea midline without deviation. Procedure - Flexible Fiberoptic Laryngoscopy: Topical anesthetic applied to the nasal cavity. Patient tolerated the procedure well without complication. Findings: Nasal Cavity: clear mucus, no masses. Nasopharynx: Mild erythema with clear mucus. Oropharynx: wnl Larynx: Vocal cords mobile and symmetric. Arytenoid folds with significant edema and erythema. Hypopharynx: wnl Impression: 1) globus sensation with reflux. Recommendations: I have recommended the Protonix 40 mg a day. She was given an education sheet for reflux. I have asked her to f/u with her PCP for the reflux Return to ENT as needed. Michelle SOTELO [place], [place] [address] Office documented in this encounter Plan of Treatment Upcoming Encounters Date Type Department Care Team (Late st Contact Info) Description 04/07/2024 3:20 PM EDT Office Visit Dermatology at [facility] [address] [place] [address] Dayanna Ramírez MD [facility] DR RAYNE DENG-DERMAT[place] [address] documented as of this encounter Visit Diagnoses Diagnosis Globus sensation Gastrointestinal malfunction arising from mental factors Gastric reflux Esophageal reflux documented in this encounter Care Teams Sprinkler Worker Relationship Specialty Start Date End Date Gita Huang MD [facility] DR RAYNE KENT [facility] [place] [address] PCP - General Family Medicine 11/13/17 02/19/19 documented as of this encounter
--- OUTSIDE RECORDS SUMMARY | 2024-03-20 22:09 | XMS_ITS | Encounter Summary ---
Author Organization [facility] Address [facility] [place] [address] Care Team Providers Care Automatic Transmission Mechanic Name Role Phone Abby Guaman APRN Primary Care Provider Encounter Details Date Type Department Care Team (Late st Contact Info) Description 03/15/2016 Telephone Family Medicine at [facility] [address] [place] [address] Liv Lao Social History Tobacco Use Types Packs/Day Years [...] encounter Miscellaneous Notes * Telephone Encounter - Liv Lao - 03/15/2016 2:17 PM EDT L/m for pt to call office. Appt sched with Ron 04/18 at 10:30 as been changed to 04/18 at 10:00 with Abby Guaman. documented in this encounter Plan of Treatment Upcoming Encounters Date Type Department Care Team (Late st Contact Info) Description 04/07/2024 3:20 PM EDT Office Visit Dermatology at [facility] [address] [place] [address] Dayanna Ramírez MD [facility] [place] [address] documented as of this encounter Visit Diagnoses Not on filedocumented in this encounter Care Teams Automatic Transmission Mechanic Relationship Specialty Start Date End Date Abby Guaman, JAON [facility] [place] [address] PCP - General Family Medicine 03/15/16 06/19/17 documented as of this encounter
--- OUTSIDE RECORDS SUMMARY | 2024-03-20 22:09 | XMS_ITS | Encounter Summary ---
Author Organization [facility] Address [facility] [place] [address] Care Team Providers Care Allergy And Immunology Chief Name Role Phone Jayna Velasquez MD Primary Care Provider [phone] Reason for Visit * Reason Onset Date Comments Medication Refill 03/01/2016 Encounter Details Date Type Department Care Team (Late st Contact Info) Description 03/01/2016 Refill Family Medicine at [facility] [address] [place] [address] Jessica Wolf RN Social History Tobacco Use Types Packs/Day [...] encounter Miscellaneous Notes * Telephone Encounter - Jessica Wolf RN - 03/01/2016 4:28 PM EDT Received this result note: From: Abby Guaman APRN Sent: 03/01/2016 12:54 PM To: [facility] Primary Care Team S2 Nurse Please let Yumiko know that her Dexa scan results are back. Her T-score is -0.1. This is a normal T-score for your age. No sign of bone loss at this point. Let me know if she has questions. ADavis Called pt. Identified patient by name and date of . Read her above information. voiced understanding documented in this encounter Plan of Treatment Upcoming Encounters Date Type Department Care Team (Late st Contact Info) Description 04/07/2024 3:20 PM EDT Office Visit Dermatology at [facility] [address] [place] [address] Dayanna Ramírez MD [facility] [address] [place] [address] documented as of this encounter Visit Diagnoses Not on filedocumented in this encounter Care Teams Allergy And Immunology Chief Relationship Specialty Start Date End Date Jayna Velasquez MD [facility] [place] [address] PCP - General Family Medicine 02/07/16 03/14/16 documented as of this encounter
--- OUTSIDE RECORDS SUMMARY | 2024-03-20 22:09 | XMS_ITS | Encounter Summary ---
Author Organization [facility] Address [facility] [place] [address] Care Team Providers Care Auto Body Repairer Name Role Phone Abby Guaman APRN Primary Care Provider [phone] Encounter Details Date Type Department Care Team (Late st Contact Info) Description 05/25/2016 Orders Only Family Medicine at [facility] [address] [place] [address] Abby Guaman APRN [facility] [place] [address] Social History Tobacco Use Types Packs/Day Years [...] 3:20 PM EDT Office Visit Dermatology at [facility] [address] [place] [address] Dayanna Ramírez MD [facility] DR RAYNE [place] [address] documented as of this encounter Visit Diagnoses Not on filedocumented in this encounter Care Teams Auto Body Repairer Relationship Specialty Start Date End Date Abby Guaman APRN [facility] [place] [address] PCP - General Family Medicine 03/15/16 06/19/17 documented as of this encounter
--- OUTSIDE RECORDS SUMMARY | 2024-03-20 22:09 | XMS_ITS | Encounter Summary ---
Author Organization [facility] [place] [address] Care Team Providers Care Shook Splicer Name Role Phone Abby Guaman APRN Primary Care Provider [phone] Encounter Details Date Type Department Care Team (Late st Contact Info) Description 04/11/2016 11:30 AM EDT Office Visit [facility] [address] Grisel Causey, RELIGIOUS RITUAL [facility] PHYS[facility] & [place] [address] Suzy-Danlos syndrome type III Social History Tobacco Use Types Packs/Day Years Used Date Smoking Tobacco: Never Smokeless Tobacco: Never Alcohol Use Standard Drinks/Week Comments No 0 (1 standard drink = 0.6 oz pur e alcohol) rare Sex and Gender Information Value Date Recorded Sex Assigned at Not on file Gender Identity Not on file Sexual Orientation Not on file documented as of this encounter Progress Notes * Grisel Causey PTA - 04/11/2016 11:30 AM EDT Aquatic Physical Therapy Treatment Note Total Treatment Time: 45 min Time Coded Treatment: 15 min Insurance: Payor: [place] / Plan[place] PRIMARY CARE PL[place] / Product Type: *No Product type* / Pool visit # 8 Follow up visit for patient with 1. Suzy-Danlos syndrome type III S: Pt reports her shoulder and neck sx are narrowing down to specific locations. Patient reports her hips and core are feeling stronger and she is noticing greater endurance. O: Aquatic Therex, individualized exercise program in a group settin.5# ankle weights except when using floats cues for core and scap engagement/stabilizations and on 1/2->3/4 range with all therex to work stability vs flexibility ankle floats for hip/core stab: hip 3 way with UE assist at railing as needed (worked on trying to compete without UE assist, extremely challenging, greater challenge when I unintentionally distracted with conversation) walking forward, retro, lateral working mechanics and posture (small wrist flat resistance) suspended by noodle in deep water: cross country skiing hip abd/add shoulder rolls, retractions semi squat position for core and scap stab: shld AROM: flex/ext, abd/add, horiz abd/add, IR/ER A: Patient becoming far more body aware, able to control exercises to eliminate or reduce sx with correcting mechanics. P: Cont per PT POC and goals. Treatment and note completed by Grisel Causey PTA documented in this encounter Plan of Treatment Upcoming Encounters Date Type Department Care Team (Late st Contact Info) Description 04/07/2024 3:20 PM EDT Office Visit Dermatology at [facility] [address] [place] [address] Dayanna Ramírez MD [facility] DR RAYNE [place] [address] documented as of this encounter Visit Diagnoses Diagnosis Suzy-Danlos syndrome type III Suzy-Danlos syndrome documented in this encounter Care Teams Shook Splicer Relationship Specialty Start Date End Date Abby Guaman APRN [facility] [place] [address] PCP - General Family Medicine 03/15/16 06/19/17 documented as of this encounter
--- OUTSIDE RECORDS SUMMARY | 2024-03-20 22:09 | XMS_ITS | Encounter Summary ---
Author Organization [facility] Address [facility] [place] [address] Care Team Providers Care Curb And Gutter Laborer Name Role Phone Abby Guaman APRN Primary Care Provider [phone] Encounter Details Date Type Department Care Team (Late st Contact Info) Description 03/15/2016 Telephone Family Medicine at [facility] [address] [place] [address] Rona Velasquez MD [facility] [place] [address] Social History Tobacco Use Types Packs/Day Years [...] encounter Miscellaneous Notes * Telephone Encounter - Traci Martinez RN - 03/15/2016 1:29 PM EDT Called pt and verified name and . Read the message from Dr Velasquez to pt..... Rona Velasquez MD to [facility] Primary Care Team S2 Nurse ?? 03/15/16 12:08 PM Note Please call pt and let her know that her electrolyte levels look ok (potassium). I am still somewhat concerned about her being on both lasix and hydrochlorothiazide as that can be hard on the kidneysover time. Since the lasix seems to work the best, I would have her continue the lasix and stop the hydrochlorothiazide. Thanks, RONA VELASQUEZ MD Pt was pleased to hear the results were good. However pt was upset and ' upon leaving was in tears ' She states she would like not to see Dr Velasquez again, she would like to have Leah as her PCP. Have spoke with Leah and to Dr Velasquez and a PCP change will take place. * Telephone Encounter - Rona Velasquez MD - 03/15/2016 12:02 PM EDT Please call pt and let her know that her electrolyte levels look ok (potassium). I am still somewhat concerned about her being on both lasix and hydrochlorothiazide as that can be hard on the kidneysover time. Since the lasix seems to work the best, I would have her continue the lasix and stop the hydrochlorothiazide. Thanks, RONA VELASQUEZ MD documented in this encounter Plan of Treatment Upcoming Encounters Date Type Department Care Team (Late st Contact Info) Description 04/07/2024 3:20 PM EDT Office Visit Dermatology at [facility] [address] [place] [address] Dayanna Ramírez MD [facility] DR RAYNE [place] [address] documented as of this encounter Visit Diagnoses Not on filedocumented in this encounter Care Teams Curb And Gutter Laborer Relationship Specialty Start Date End Date Abby Guaman [place] [address] PCP - General Family Medicine 03/15/16 06/19/17 documented as of this encounter
--- OUTSIDE RECORDS SUMMARY | 2024-03-20 22:09 | XMS_ITS | Encounter Summary ---
Author Organization [facility] Address [facility] [place] [address] Care Team Providers Care Methane Gas Collection System Operator Name Role Phone Abby Guaman APRN Primary Care Provider [phone] Encounter Details Date Type Department Care Team (Late st Contact Info) Description 09/26/2016 Telephone Obstetrics [place] [phone] Gloria Man MD [facility] DR OBSTETRICS [place] [address] Social History Tobacco Use Types Packs/Day Years [...] encounter Miscellaneous Notes * Telephone Encounter - Gloria Man - 09/26/2016 10:22 AM EST Tried to call patient with pap result. Number is no longer in service. Will send letter. Pap ASCUS,+HPV. Needs colposcopy. Gloria Man MD PGY4 documented in this encounter Plan of Treatment Upcoming Encounters Date Type Department Care Team (Late st Contact Info) Description 04/07/2024 3:20 PM EDT Office Visit Dermatology at [place] [address] [place] [address] Dayanna Ramírez MD [facility] [place] [address] documented as of this encounter Visit Diagnoses Not on filedocumented in this encounter Care Teams Methane Gas Collection System Operator Relationship Specialty Start Date End Date Abby Guaman, JOAN [facility] [place] [address] PCP - General Family Medicine 03/15/16 06/19/17 documented as of this encounter
--- OUTSIDE RECORDS SUMMARY | 2024-03-20 22:09 | XMS_ITS | Encounter Summary ---
Author Organization Formerly [facility] Address [facility] [place] [address] Care Team Providers Care Medical Record Specialist Name Role Phone Jayna Velasquez MD Primary Care Provider [phone] Reason for Visit * Reason Comments Follow-up would like to talk a bout diabetes testing Encounter Details Date Type Department Care Team (Late st Contact Info) Description 03/14/2016 8:30 AM EDT Office Visit Family Medicine at [facility] [address] [place] [address] Jayna Velasquez MD [facility] [place] [address] Swelling; Chronic pain syndrome; Depression with anxiety Social History Tobacco Use Types Packs/Day Years [...] Sign Reading Time Taken Comments Blood Pressure 104/72 03/14/2016 8:32 AM EDT Pulse 63 03/14/2016 8:32 AM EDT Temperature 36.9 ??C (98.4 ??F) 03/14/2016 8:32 AM ED T Respiratory Rate 14 03/14/2016 8:32 AM EDT Oxygen Saturation 97% 03/14/2016 8:32 AM EDT Inhaled Oxygen Concentration - - Weight 64.2 kg (141 lb 9.6 oz) 03/14/2016 8:32 A M EDT Height 155.6 cm (5' 1.26) 03/14/2016 8:32 AM ED T Body Mass Index 26.53 03/14/2016 8:32 AM EDT documented in this encounter Patient Instructions * Patient Instructions* Jayna Velasquez MD - 03/14/2016 8:30 AM EDT Sertraline 50mg tablet - take 1/2 tablet for one week, then one tablet daily for one week, then 1 1/2 tablets daily until next visit. documented in this encounter Progress Notes * Jayna Velasquez MD - 03/14/2016 8:30 AM EDT Subjective: Patient ID: Yumiko Chang is a 46 y.o. female. HPI Here to establish with me. Has juvenile idiopathic arthritis and Suzy-Danlos syndrome. Has taken naproxen for 27 years for her pain which was ok for a while and but got worse with menopause one year ago, increased to 1100mg per day. Was told that her kidneys might not be functioning well based on swelling (not based on creatinine) so not taking regularly now. Echo in 09/2015 was nml. Taking lasix in the morning and HCTZ at night which she feels makes her chest feel less full. Doing aquatic therapy which is helping. Has appt with rheum 04/20 to discuss EDS. Stopped seeing rheum for arthritis as was told nothing elsecould be done. There is a lot on her problem list that does not seem likely to be true including myocardial infarct (h/o chest pain with vioxx - no record of MD and uterine cancer w/o h/o treatment). Has a lot going on at home - 2 special needs children and very busy and tired. Juarez - easily tearful at times and fine other times. Review of Systems Per HPI Objective: BP 104/72 (BP Location (NBP): Right arm, Patient Position: Sitting, BP Cuff Sizes: Adult (25-34 cm)) Pulse 63 Temp 36.9 ??C (98.4 ??F) (Oral) Resp 14 Ht 155.6 cm (5' 1.26) Wt 64.2 kg (141 lb 9.6 oz)LMP 05/13/2015 SpO2 97% BMI 26.53 kg/m2 Patient reported measures: Pain:7 Physical Health:Good Fall: PHQ-9 QUESTIONNAIRE SCORE ONLY (AMB) 09/09/2015 PHQ - 9 Score (Clinic) 0 (No Depression) Wt Readings from Last 3 Encounters: 03/14/16 64.2 kg (141 lb 9.6 oz) 02/11/16 64.7 kg (142 lb 9.6 oz) 09/14/15 62.7 kg (138 lb 3.2 oz) Physical Exam NAD RRR, no murmur CTA B, good air movement NBS, soft, nt, nd No edema Assessment and Plan: 1. Swelling Not sure why swelling but if doing well on current regimen and IF electrolytes look ok, will con't current tx for now. - Basic Metabolic Panel (non-fasting); Future 2. Chronic pain syndrome Pt will see rheum and hopefully treating mood will help with pain, will also con't with aqua therapy 3. Depression with anxiety Start sertraline 50mg tabs - 1/2 tab daily for one week, then 1 tab daily for one week, then 1 1/2 tabs daily. F/U 4 weeks. Discussed common side effects and onset of action. documented in this encounter Plan of Treatment Upcoming Encounters Date Type Department Care Team (Late st Contact Info) Description 04/07/2024 3:20 PM EDT Office Visit Dermatology at [facility] [address] [place] [address] Dayanna Ramírez MD [facility] DR [place] [address] documented as of this encounter Procedures Procedure Name Priority Date/Time Associated Diagnosis Comments BASIC METABOLIC PANEL Routine 03/14/2016 10:05 AM EDT Swelling documented in this encounter Results * (ABNORMAL) Basic Metabolic Panel (non-fasting) (03/14/2016 10:05 AM EDT) [facility] Glucose 93 65 - 199 mg/dL [facility] Comment:Diabetes: >=200 mg/d L plus symptoms Blood Urea Nitrogen 12 8 - 18 mg/dL [facility] Creatinine 1.00 0.70 - 1.20 mg/dL [facility] Comment: Please note that the pediatric reference intervals supplied above were not validated at [facility]. Results from pediatric patients should be interpreted in conjunction to the patient's age, height and muscle mass. Sodium 143 135 - 145 mmol/L [facility] Potassium 3.7 3.5 - 5.0 mmol/L [facility] Comment: Please note: ??Patients with WBC >100,000 may have falsely elevated Potassium levels. ??For accurate Potassium quantification in these patients send serum separator tube (gold top) for subsequent determinations. ??Contact the Clinical Chemistry Laboratory if there are any questions. Chloride 97(L) 98 - 107 mmol/L [facility] Carbon Dioxide 28 22 - 31 mmol/L [facility] Anion Gap 18(H) 5 - 15 mmol/L [facility] Calcium 10.3 8.5 - 10.5 mg/dL [facility] Est Glomerular Filtration Rate 59(L) >=60 [facility] Comment: This estimated GFR (eGFR) value was calculated using the MDRD equation which has been validated on patients between the ages of 18 and 70. The MDRD should not be used to assess kidney function in patients < 18 years of age or in patients with extremes of body mass, or in patients with acute kidney failure. This value should be multiplied by 1.2 for patients. For further information please copy and paste the following links into your internet browser. http://Graph [email or web address]/DHnkdep [email or web address]/DHMCnkf Blood specimen (specimen) 03/14/2016 10:05 AM EDT 03/14/2016 12:47 PM EDT Narrative Resulting Agency Comment Spec In Lab Jayna Velasquez MD CHEMISTRY ORDERABLES [facility] [place] [address] documented in this encounter Visit Diagnoses Diagnosis Swelling Edema Chronic pain syndrome Depression with anxiety Dysthymic disorder documented in this encounter Care Teams Medical Record Specialist Relationship Specialty Start Date End Date Jayna Velasquez MD [facility] DR [address] [place] [address] PCP - General Family Medicine 02/07/16 03/14/16 documented as of this encounter
--- OUTSIDE RECORDS SUMMARY | 2024-03-20 22:09 | XMS_ITS | Encounter Summary ---
Author Organization [facility] Address [facility] [place] [address] Care Team Providers Care Scenario Writer Name Role Phone Abby Guaman APRN Primary Care Provider [phone] Reason for Visit * Reason Comments Annual Exam discuss HRT Encounter Details Date Type Department Care Team (Late st Contact Info) Description 09/11/2016 1:45 PM EST Office Visit Obstetrics [place] [address] Gloria Man MD [facility] OBSTETRICS & [place] [address] Cervical dysplasia; Women's annual routine gynecological examination Social History Tobacco Use Types Packs/Day [...] Sign Reading Time Taken Comments Blood Pressure 118/68 09/11/2016 1:47 PM EST Pulse 66 09/11/2016 1:47 PM EST Temperature 37 ??C (98.6 ??F) 09/11/2016 1:47 PM EST Respiratory Rate 14 09/11/2016 1:47 PM EST Oxygen Saturation 98% 09/11/2016 1:47 PM EST Inhaled Oxygen Concentration - - Weight 65.2 kg (143 lb 12.8 oz) 09/11/2016 1:47 PM EST Height 154.8 cm (5' 0.95) 09/11/2016 1:47 PM ES T Body Mass Index 27.22 09/11/2016 1:47 PM EST documented in this encounter Progress Notes * Gloria Man - 09/11/2016 1:45 PM EST Office Visit Patient Name: Yumiko De Leon Date of : 1970 Primary Care Provider: Abby Guaman APRN Date of Visit: 09/11/2016 Reason for Visit: YUMIKO DE LEON is a 46 y.o. female who presents to discuss HRT. She is also due for a pap/HPV Subjective: Yumiko reports that over the last year, she has been trying a lot of medications for herfibromyalgia, Suzy Danlos, and arthritis. She also reports she has had a 30lb weight gain over the last year (our records indicate 10lbs). She continues to have arthritic pain, headaches, dizziness. She has not done well with any new medications (and historically has many side effects from medications), so currently now is only taking naproxen, cetirazine, sertraline. She is due for a mammogram. She also reports that she has a skin tag that she continues to cut off when she shaves. These have increased to 4 bumps now and bother her as they rub on her underwear. She shaves them off completelyand they go away for a period of time, but then come back. She is abstinent currently, but worries about them being unsightly if she were to engage in a future romantic relationship. Her biggest goal that she is hoping to target with HRT is pain control and weight loss. Patient's last menstrual period was 05/13/2015. She has had no bleeding in over a year now and is now officially menopausal. She is not having much trouble with hot flashes or night sweats. Her pap history is significant for: Her last pap smear showed 06/16/15 ASCUS, +HPV high risk other than 16/18. 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 Prior past hx: 2013, 2011, 2009, 2008, 2007, 2006 NILM Hx of LEEP in 2005 Objective: Vitals: 09/11/16 1347 BP: 118/68 Pulse: 66 Resp: 14 Temp: 37 ??C (98.6 ??F) TempSrc: Temporal SpO2: 98% Weight: 65.2 kg (143 lb 12.8 oz) Height: 154.8 cm (5' 0.95) General - well appearing in NAD Neck: no thyromegaly or nodules Breast: Breast exam reveals no nodules, skin changes, or discharge. Pt is very tender in axilla bilaterally which is her baseline. CV - RRR, no MRG Lungs - CTAB, no WRR Back - no lesions Abdomen - soft, non-tender Pelvic exam External Genitalia - Normal appearing labia majora and minor. Unable to see skin tags pt describes and pt unable to find them today. Urethral meatus - Without prolapse Vagina - Normal physiologic discharge present. On bimanual, ~7mm hard nodule in right posterior vaginal fornix consistent with vaginal inclusion cyst. Cervix - without lesion Uterus - Anteverted. Small. Non-tender Adenexa - No masses or tenderness Assessment/Plan: Yumiko De Leon is a 46 y.o. female with history of cervical dysplasia and concerns about HRT. Benign exam today. -pap/HPV collected today. Will call with results. -Discussed at length the option of HRT. While HRT can be very helpful for symptoms such as night sweats, hot flashes, or vaginal dryness, there is no evidence that I am aware of on the use of HRT forfibromyalgia and arthritis pain and weight loss. We discussed trialing HRT to see if she gets any relief, however, we also discussed that last year when I saw her and she had just come off of HRT, she felt much better. After discussing, the patient elects to not resume HRT. She will call if she thinks about this further and changes her mind. -Pt to schedule mammogram -Follows up with her PCP and marine technician for the remainder of her care -Return to clinic in 1 year or PRN. Discussed with Dr. Ware, Attending. Gloria Man MD, PGY4 * Edgar Ware MD - 09/11/2016 1:45 PM EST Yumiko Nava De Leon was discussed with me at the time of the visit or immediately after the visit. The assessment and plan were formulated in discussion with me and I agree with them as documented. I havereviewed the history, physical exam, assessment and plan with the resident. EDGAR WARE MD documented in this encounter Plan of Treatment Upcoming Encounters Date Type Department Care Team (Late st Contact Info) Description 04/07/2024 3:20 PM EDT Office Visit Dermatology at [facility] [address] [place] [address] Dayanna Ramírez MD [facility] DR RAYNE [place] [address] documented as of this encounter Procedures Procedure Name Priority Date/Time Associated Diagnosis Comments HPV Routine 09/11/2016 2:16 PM EST FISH CUTTING MACHINE OPERATOR CYTOLOGY INTERPRETATION Routine 09/11/2016 2:16 PM EST FISH CUTTING MACHINE OPERATOR CYTOLOGY FINAL REPORT Routine 09/11/2016 2:16 PM EST CYTOPATHOLOGY GYNECOLOGICAL Routine 09/11/2016 2:16 PM EST Cervical dysplasia documented in this encounter Results * (ABNORMAL) FISH CUTTING MACHINE OPERATOR Cytology Interpretation (09/11/2016 2:16 PM EST) Tube Lancer Cytology Interpretation ASC-US(A) [facility] Comment:Tube Lancer Cytology Final R eport Tube Lancer Cytology Comment Present [facility] Endocervical Component Present [facility] AP Specimen 09/11/2016 2:16 PM EST 09/19/2016 6:31 PM EST Gloria Man MD PATHOLOGY/CYTOLO [place] [address] * Tube Lancer Cytology Final Report (09/11/2016 2:16 PM EST) Tube Lancer Cytology Final Report [id number] ?Location: 5L The signing pathologist has (i) examined the relevant preparation(s) for the specimen(s) and (ii) rendered or confirmed the diagnosis(es). . ? Tube Lancer Final DIAGNOSIS Epithelial Cell Abnormality Atypical Squamous Cells of Undetermined Significance (ASC-US). For consensus guidelines for the management of cervical cancer screening test results, please see: ?? http://www.asccp .org/guidelines . Electronically signed by: ??Liu Tavarez MD Verified: ??09/19/2016 ?Cytopathologis t DISCUSSION Predominance of coccobacilli suggestive of shift in vaginal jitendra. HPV RESULTS HPV16 (Result) ?Negative HPV18 (Result) [...] Clinical Genomics and Advanced Technology (CGAT) at [facility]. ? - Dre Box, PhD, [facility], Director-CGAT STATEMENT OF ADEQUACY Specimen submitted is satisfactory. Endocervical component present. CLINICAL INFORMATION HPV Option: ? Concurrent HPV Preparation: ?Liquid Based Pap Specimen Source: ?Cervical Endocervical LBP LMP: ?05/2015 Hormones?: ?No Hysterectomy?: ?No ?: ?No ?: ?No I.U.D.?: ?No Pelvic Radiation: ? No Prior FISH CUTTING MACHINE OPERATOR Therapy?: ? s/p LEEP in 2006 Hist Abnl Pap/Biopsy?: ??Yes, history of previous abnormal Pap Hist of HPV Vaccine?: ?? No Hist of Smoking?: ? No Hist of CAMERON exposure?: ??No Clinical Data, Significant Therapy and Clinical Impression ?? : . CLINICAL INFORMATION ?? _ This Pap Test has been evaluated with the assistance of the [employer]Prep Pap Test Imaging System. Note: The Pap test is a screening test for cervical cancer with an inherent false-negative rate dependent upon several variables. ??For further information please contact the [facility] Laboratory. Reference: ??Jacquelyn VERDUGO. ??Fire Prevention Chief of Pap Smear Results. ??In: ??Felipe BS, Bob HH, ed. ??The Pap Smear. ??[place]: ??Suraj, 2002: ??71-77. [facility] 09/11/2016 2:16 PM EST Gloria Man MD PATHOLOGY/CYTOLO GY ORDERABLES [facility] [place] [id number] * (ABNORMAL) HPV (09/11/2016 2:16 PM EST) HPV16 NEGATIVE NEGATIVE [facility] HPV 18 NEGATIVE NEGATIVE [facility] HPV Other HR POSITIVE(A) NEGATIVE [facility] HPV Interpretation See Comment [facility] Comment: POSITIVE for high-risk HPV* [...] Cytology Liquid Based Prep Cervical swab (specimen) 09/11/2016 2:16 PM EST 09/11/2016 3:35 PM EST Narrative Resulting Agency Comment Spec In Lab Gloria Man MD PATHOLOGY/CYTOLO GY ORDERABLES Performing Organization Address [facility]/ZIP Co de Phone Number [facility] [place] [address] * Cytopathology Gynecological (09/11/2016 2:16 PM EST) AP Specimen 09/11/2016 2:16 PM EST 09/11/2016 2:16 PM EST Narrative [facility] - 09/11/2016 2:16 PM EST Specimen requisition ordered. ??Separate Pathology report to follow Edgar Ware MD PATHOLOGY/CYTOLOGY O RDERABLES Performing Organization Address [facility]/ZIP Co de Phone Number [facility] [place] [address] documented in this encounter Visit Diagnoses Diagnosis Cervical dysplasia Dysplasia of cervix, unspecified Women's annual routine gynecological examination documented in this encounter Care Teams Scenario Writer Relationship Specialty Start Date End Date Abby Guaman, JO[place] [facility] [place] [address] PCP - General Family Medicine 03/15/16 06/19/17 documented as of this encounter
--- OUTSIDE RECORDS SUMMARY | 2024-03-20 22:09 | XMS_ITS | Encounter Summary ---
Author Organization [facility] Address [facility] [place] [address] Care Team Providers Care Cook Short Order Name Role Phone Unavailable Primary Care Provider Unavailabl e Encounter Details Date Type Department Care Team (Late st Contact Info) Description 09/16/2015 Telephone [place] [address] Latonia Acosta PA [facility] [place] [address] Social History Tobacco Use Types Packs/Day Years [...] encounter Miscellaneous Notes * Telephone Encounter - Latonia Acosta PA - 09/16/2015 11:13 AM EST Discussed nl labs. Scheduled for ECHO. Would like something in the interim to help with leg swelling. Start low dose HCTZ. documented in this encounter Plan of Treatment Upcoming Encounters Date Type Department Care Team (Late st Contact Info) Description 04/07/2024 3:20 PM EDT Office Visit Dermatology at [facility] [address] [place] [address] Dayanna Ramírez MD [facility] [place] [address] documented as of this encounter Visit Diagnoses Diagnosis Edema of lower extremity, unspecified laterality documented in this encounter
--- OUTSIDE RECORDS SUMMARY | 2024-03-20 22:09 | XMS_ITS | Encounter Summary ---
Author Organization [facility] Address [facility] [place] [address] Care Team Providers Care Trading Floor Operator Name Role Phone Abby Guaman APRN Primary Care Provider [phone] Encounter Details Date Type Department Care Team (Latest Contact Info) Description 11/10/2016 11:10 AM EDT - 11/10/2016 11:59 PM EDT Hospital [place] [address] Mer Morgan MD [facility] [place] [address] Encounter for screening mammogram for malignant neoplasm of breast Discharge Disposition: Home Social History Tobacco Use [...] hours as needed. 1 Inhaler 3 04/18/2016 sertraline (ZOLOFT) 100 mg Tablet Take 100 mg by mouth daily. 06/05/2017 naproxen sodium (ANAPROX) 550 mg TabletIndications:NEENA (juvenile [...] at [facility] [address] [place] [address] Dayanna Ramírez MD [facility] [place] [address] documented as of this encounter Procedures Procedure Name Priority Date/Time Associated Diagnosis Comments MAMMO SCREENING CAD AND COLBY BILATERAL Routine 11/10/2016 11:33 AM EDT Encounter for screening mammogram for malignant neoplasm of breast documented in this encounter Results * Mammo Screen CAD and Colby Bilat (Generic) (11/10/2016 11:33 AM EDT) Anatomical Region Laterality Modality Breast Bilateral Mammography Narrative 11/10/2016 12:08 PM EDT BILATERAL MAMMOGRAPHY REASON FOR EXAM: Screening [...] No mammographic evidence of malignancy. RECOMMENDATION: The [place] [employer] and The Society of [...] Breast Imaging Center. BIRADS CATEGORY 1: NEGATIVE Mer Morgan MD IMG MAMMO ORDERABLE S documented in this encounter Visit Diagnoses Diagnosis Encounter for screening mammogram for malignant neoplasm of breast Other screening mammogram documented in this encounter Care Teams Trading Floor Operator Relationship Specialty Start Date End Date Abby Guaman, BRUSH HOLDER ASSEMBLER [facility] [place] [address] PCP - General Family Medicine 03/15/16 06/19/17 documented as of this encounter
--- OUTSIDE RECORDS SUMMARY | 2024-03-20 22:09 | XMS_ITS | Encounter Summary ---
Author Organization [facility] [place] [address] Care Team Providers Care Operations Supervisor Chemical Cleaning Name Role Phone Jayna Velasquez MD Primary Care Provider [phone] Encounter Details Date Type Department Care Team (Late st Contact Info) Description 02/29/2016 11:30 AM EDT Office Visit [facility] [place] [address] [address] Grisel Causey, NUTRITION COUNSELOR [facility] PHYSICAL MEDICINE & [place] [address] Suzy-Danlos syndrome type III; Fibromyalgia; Rheumatoid arthritis involving multiple sites, unspecified rheumatoid factor presence Social History Tobacco Use Types Packs/Day Years [...] Progress Notes * Grisel Causey PTA - 02/29/2016 11:30 AM EDT Aquatic Physical Therapy Treatment Note Total Treatment Time: 30 min Time Coded Treatment: 15 min Insurance: Payor: [place] / Plan[place] PRIMARY CARE PL[place] / Product Type: *No Product type* / Pool visit # 1 Follow up visit for patient with 1. Suzy-Danlos syndrome type III 2. Fibromyalgia 3. Rheumatoid arthritis involving multiple sites, unspecified rheumatoid factor presence S: Pt reports at one point she has been doing high level gym training, then injured different partsof her body doing this and had to stop. O: Aquatic Therex, individualized exercise program in a group setting: instruction in core engagement/stabilizations discussed and cued on 1/2->3/4 range with all therex to work stability vs flexibility walking forward, retro, lateral working mechanics and posture SLS: other LE hip 3 way for core training suspended by noodle in deep water: added small wts due to buoyancy issue cross country skiing (with cuing hip abd/add seated at wall: pelvic tilt neutral shld AROM: flex/ext, abd/add, horiz abd/add, IR/ER squats (placed wts on ankles due to buoyancy issue) A: Needed some adjustments in range during shld exercises to prevent irritation. P: Cont per PT POC and goals. Treatment and note completed by Grisel Causey PTA documented in this encounter Plan of Treatment Upcoming Encounters Date Type Department Care Team (Late st Contact Info) Description 04/07/2024 3:20 PM EDT Office Visit Dermatology at [facility] [address] [place] [address] Dayanna Ramírez MD [facility] [place] [address] documented as of this encounter Visit Diagnoses Diagnosis Suzy-Danlos syndrome type III Suzy-Danlos syndrome Fibromyalgia Mylagia and myositis, unspecified Rheumatoid arthritis involving multiple sites, unspecified rheumatoid factor presence documented in this encounter Care Teams Operations Supervisor Chemical Cleaning Relationship Specialty Start Date End Date Jayna Velasquez MD [facility] [place] [address] PCP - General Family Medicine 02/07/16 03/14/16 documented as of this encounter
--- OUTSIDE RECORDS SUMMARY | 2024-03-20 22:09 | XMS_ITS | Encounter Summary ---
Author Organization [facility] Address [facility] [place] [address] Care Team Providers Care Dryland Farmer Name Role Phone Abby Guaman APRN Primary Care Provider [phone] Reason for Visit * Reason Comments Colposcopy Encounter Details Date Type Department Care Team (Late st Contact Info) Description 10/23/2016 10:30 AM EDT Procedure visit Obstetrics [place] [address] [facility] DR OBSTETRICS [place] [address] Cervical dysplasia; Atypical squamous cells of undetermined significance on cytologic smear of cervix (ASC-US); HPV in female Social History Tobacco Use Types Packs/Day Years Used Date Smoking Tobacco: Never Smokeless Tobacco: Never Alcohol Use Standard Drinks/Week Comments No 0 (1 standard drink = 0.6 oz pur e alcohol) rare Sex and Gender Information Value Date Recorded Sex Assigned at Not on file Gender Identity Not on file Sexual Orientation Not on file documented as of this encounter Progress Notes * Gloria Man - 10/23/2016 10:30 AM EDT Colposcopy Note Yumiko Chang is a 46 y.o. y.o. P5 here for colposcopy, referred by Abby Guaman APRN Her last pap smear on 09/11/16 showed ASCUS, +HPV type other than 16/18 Prior past hx: 06/16/15 ASCUS, +HPV high risk other than 16/18. 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 2013, 2011, 2009, 2008, 2007, 2006 NILM Hx of LEEP in 2005 She is using nothing for control, last menses 2014, now menopausal She not gotten the gardasil vaccine. She denies history of smoking, warts or other STI. Current Outpatient Prescriptions on File Prior to Visit Medication Sig Dispense Refill ??? naproxen sodium (ANAPROX) 550 mg Tablet Take 1 tablet by mouth 2 times daily as needed. 60 tablet 2 ??? cetirizine (ZYRTEC) 10 mg Tablet Take 1 tablet by mouth daily. 90 tablet 3 ??? levalbuterol (XOPENEX HFA) 45 mcg/actuation HFA Aerosol Inhaler Inhale 1-2 puffs into the lungsevery 4 hours as needed. 1 Inhaler 3 No current facility-administered medications on file prior to visit. Allergies Allergen Reactions ??? Latex Rash ??? Azithromycin Anaphylaxis ??? Penicillins Anaphylaxis ??? Epinephrine Other (See Comments) fast heart rate ??? Influenza Virus Vaccines Declines based on prior fevers, fatigue. Objective: Immediately prior to the start of the procedure, I confirmed the patient's identity, intended procedure, and insured that the proper equipment was present for the procedure. On exam, external genitalia normal with 2mm raised flesh colored papule on right mons which pt describes as skin tag. Vagina with 1cm friable area on right side wall approximately 2-3cm from cervix. Cervix without visible lesion on speculum exam. SCJ not visualized. Colposcopic evaluation using 5% acetic acid showed normal cervix without lesions. [employer] biopsies were done at the right vaginal sidewall along with ECC. Bleeding was controlled using Monsels solution. Impression: Mild dysplasia. Plan: Will contact patient with results. Pt seen with Dr. Ware, Attending Gloria Man MD PGY4 * Edgar Ware MD - 10/23/2016 10:30 AM EDT I was present and participated during the entire procedure. EDGAR WARE MD documented in this encounter Plan of Treatment Upcoming Encounters Date Type Department Care Team (Late st Contact Info) Description 04/07/2024 3:20 PM EDT Office Visit Dermatology at [facility] [address] [place] [address] Dayanna Ramírez MD [facility] [address] [place] [address] documented as of this encounter Procedures Procedure Name Priority Date/Time Associated Diagnosis Comments SPECIMEN TO PATHOLOGY (NON-OR) Routine 10/23/2016 12:17 PM EDT SURGICAL PATHOLOGY REPORT Routine 10/23/2016 12:17 PM EDT documented in this encounter Results * Surgical Pathology Report (10/23/2016 12:17 PM EDT) Final Diagnosis [id number] ?Location: 5L The signing pathologist has (i) examined the relevant preparation(s) for the specimen(s) and (ii) rendered or confirmed the diagnosis(es). . ?Surgical Pathology DIAGNOSIS A - Endocervical curettings: 1. Fragments of benign endocervical and metaplastic squamous mucosa intermixed with cervical mucus and blood clot. 2. No evidence of dysplasia or HPV effect. B - Biopsy right vaginal wall: LSIL (VAIN I/HPV effect). CR-0 Electronically signed by: ??Blanca RVIERA, Ivelisse Leos Verified: ??10/24/2016 ?Pathologist CLINICAL INFORMATION Specimen Submitted: A - ECC B - Biopsy right vaginal wall Clinical History: ASCUS Pap with positive HPV Clinical Diagnosis: Mild dysplasia SPECIMEN PROCESSING A - Labeled/Fixative : ECC, formalin. Quantity/Size: Fragments, collectively 0.9 x 0.8 x 0.3 cm. Tissue Description: ??Soft, pink-bryant mucoid tissue. Sections/Process ing: (T1) B - Labeled/Fixative : Biopsy right vaginal sidewall, formalin. Quantity/Size: Single, 0.3 cm. Tissue Description: Rubbery, robles-white, focally hemorrhagic tissue. Sections/Process ing: (T1) ??ejr 10/24/2016 9:09 AM EDT [facility] VAGINAL STRUCTURE / Unknown 10/23/2016 12:17 PM EDT 10/23/2016 12:17 PM EDT VAGINAL STRUCTURE / Unknown 10/23/2016 12:17 PM EDT 10/23/2016 12:17 PM EDT Gloria Man MD PATHOLOGY/CYTOLO GY ORDERABLES Performing Organization Address City/[facility]/[place] [address] * Specimen to Pathology (NON-OR) (10/23/2016 12:17 PM EDT) AP Specimen 10/23/2016 12:1 7 PM EDT 10/23/2016 12:17 PM EDT Narrative [facility] - 10/23/2016 12:17 PM EDT Specimen requisition ordered. ??Separate Pathology report to follow Edgar Ware MD PATHOLOGY/CYTOLOGY O RDERABLES Performing Organization Address City/[facility]/[place] [address] documented in this encounter Visit Diagnoses Diagnosis Cervical dysplasia Dysplasia of cervix, unspecified Atypical squamous cells of undetermined significance on cytologic smear of cervix (ASC-US) Papanicolaou smear of cervix with atypical squamous cells of undetermined significance (ASC-US) HPV in female Human papillomavirus in conditions classified elsewhere and of unspecified site documented in this encounter Care Teams Dryland Farmer Relationship Specialty Start Date End Date Abby Guaman, SENIOR ESTIMATOR [facility] [place] [id number] PCP - General Family Medicine 03/15/16 06/19/17 documented as of this encounter
--- OUTSIDE RECORDS SUMMARY | 2024-03-20 22:09 | XMS_ITS | Encounter Summary ---
Author Organization Formerly [place] [address] Care Team Providers Care Sea Kayaking Guide Name Role Phone Abby Guaman APRN Primary Care Provider [phone] Reason for Referral * Diagnostic Test (Routine) - Closed Specialty Diagnoses / Procedures Referred By Contac t Referred To Contact Diagnoses Dyspnea on exertion Family history of cardiovascular disease Procedures Echocardiogram Stress (Treadmill) Abby Guaman APRN [facility] [place] [address] [facility] [place] [address] Referral ID Status Reason Start Date Expiration Date V isits Requested Visits Authorized [id number] Closed Specialty Service Requested 06/11/2017 09/09/2017 1 1 * Consultation (Routine) - Closed Specialty Diagnoses / Procedures Referred By Contac t Referred To Contact Plastic Surgery Diagnoses Abdominal pannus Abby Guaman APRN [facility] [place] [address] [facility] [address] [address] Referral ID Status Reason Start Date Expiration Date V isits Requested Visits Authorized [id number] Closed Consult, Test & Treat 06/05/2017 06/05/2018 1 1 Reason for Visit * Reason Comments Follow-up Encounter Details Date Type Department Care Team (Latest Contact Info) Description 06/05/2017 1:30 PM EDT Office Visit Family Medicine at [address] [place] [id number] Abby Guaman, JOAN [facility] [place] [address] Dyspnea on exertion; Family history of cardiovascular disease; Abdominal pannus; Other chronic pain; Suzy-Danlos syndrome type III Social History Tobacco [...] Sign Reading Time Taken Comments Blood Pressure 102/60 06/05/2017 1:35 PM EDT Pulse 76 06/05/2017 1:35 PM EDT Temperature - - Respiratory Rate - - Oxygen Saturation 95% 06/05/2017 1:35 PM EDT Inhaled Oxygen Concentration - - Weight 67 kg (147 lb 12.8 oz) 06/05/2017 1:35 PM EDT Height 154.8 cm (5' 0.95) 06/05/2017 1:35 PM ED T Body Mass Index 27.97 06/05/2017 1:35 PM EDT documented in this encounter Progress Notes * Abby Guaman, JOAN - 06/05/2017 1:30 PM EDT Yumiko De Leon is a 47 y.o. female here today for Chief Complaint Patient presents with ??? Follow-up HPI Follow up Several Issues See NEVIN notes 12/15/16. At that office visit we initiated Wellbutrin 150mg XL and continued Zoloft 100mg with permission toadjust up to 125mg. Boyle good on 100mg until recently. Got a denial for disability and so increaseddepression. Went off of one of her medications for pain with rheumatology because it was hurting her stomach (diclofenac). Has been much better with her stomach but much worse with pain. Thinks this increased her depression as well. On the Wellbutrin 150mg XL she felt very motivated but was talking really fast- got intense headaches with the Wellbutrin as well. Was on it for only about a month. Has pain in neck, back, shoulders, hips, knees. Was started on Progesterone 200mg daily and then the estrodial 1mg table once daily about 2 years ago through previous PCP.She recently restarted (one week ago) this dosing to see if it would help with her aches and pains as well as hot flashes/night sweats. The aches/pains have gotten a bit better. Had been on these for 2 years previously and felt much better. Since menopause- LMP 05/13/15-Does have issues with hot flashes and night sweats. Had discussed restarting HRT with OBGYN on 09/11/2016 but did not follow up with EN[employer] LEVEL PROJECT COORDINATOR about this as they didn't think it would be helpful for her pain, but would be for hot flashes/night sweats. She would like refills of the progesterone and estrogen. Feels that her pain has improved since restarting them. No history of blood clots. No family history of clotting disorders. Has daily leg cramps prior to HRT and also frequent headaches. Has not noticed increase in headaches since restarting the progr Started her zyrtec again at night and was sleeping better. Keeps her groggy in the morning with thezyrtec. Just lost her uncle at 56- heart attack. Has a family history of cardiac disease- grandmother with cardiac disease- age 51. Had a stress echo done years ago she thinks. 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 Gets short of breath with exertion for past 2 years. Has to sit with going up stairs. Had this problem 2 years ago with exertion, fatigue etc. Reports she hasn't had testing in the past 2 years. Last EKG was 2014. Review of Systems Constitutional: Positive for fatigue. Negative for chills and fever. Eyes: Negative for visual disturbance. Respiratory: Positive for shortness of breath (only on exertion ). Negative for cough, chest tightness and wheezing. Cardiovascular: Negative for chest pain, palpitations and leg swelling. Gastrointestinal: Negative for nausea. Genitourinary: Negative for vaginal bleeding. Musculoskeletal: Positive for arthralgias, back pain, myalgias and neck pain. Skin: Negative for rash. Neurological: Positive for headaches. Negative for dizziness and light-headedness. Psychiatric/Behavioral: Positive for dysphoric mood. Negative for sleep disturbance and suicidal ideas. See HPI Objective Most Recent Vitals: 06/05/17 1335 BP: 102/60 Pulse: 76 SpO2: 95% Wt Readings from Last 3 Encounters: 06/05/17 67 kg (147 lb 12.8 oz) 12/15/16 66.3 kg (146 lb 3.2 oz) 09/11/16 65.2 kg (143 lb 12.8 oz) BP Readings from Last 3 Encounters: 06/05/17 102/60 12/15/16 122/70 09/11/16 118/68 Declines to complete PHQ9 today. Physical Exam Constitutional: She appears well-developed and well-nourished. HENT: Head: Normocephalic and atraumatic. Eyes: Pupils are equal, round, and reactive to light. Neck: Normal range of motion. Neck supple. No JVD present. Carotid bruit is not present. No thyroidmass and no thyromegaly present. Cardiovascular: Normal rate, regular rhythm, normal heart sounds and intact distal pulses. Pulmonary/Chest: Effort normal and breath sounds normal. She has no decreased breath sounds. She has no wheezes. She has no rhonchi. She has no rales. Abdominal: Bowel sounds are normal. There is no tenderness. Large abdominal pannus present Lymphadenopathy: Head (right side): No submental, no tonsillar and no occipital adenopathy present. Head (left side): No submental, no tonsillar and no occipital adenopathy present. She has no cervical adenopathy. Skin: Skin is warm and dry. She is not diaphoretic. Psychiatric: Her speech is normal and behavior is normal. Her mood appears anxious. She exhibits a depressed mood. Nursing note and vitals reviewed. Assessment/Plan: 1. Dyspnea on exertion Although exam normal today, due to reported symptoms will proceed with echocardiogram stress test. If develops chest pain or tightness with dyspnea on exertion should call 911/go to ER. - EKG 12 Lead-no acute concerns today. - Echocardiogram Stress (Treadmill); Future 2. Family history of cardiovascular disease As above - EKG 12 Lead - Echocardiogram Stress (Treadmill); Future 3. Abdominal pannus Would like consult for surgery. Appearance contributes to her depression - Referral to Plastic Surgery 4. Other chronic pain Pain is improved with restart of her progesterone 200mg daily and estrace 1mg daily. Discussed restarting HRT previously with EN[employer] LEVEL PROJECT COORDINATOR. Notes reviewed. Refills given today for 3 months and then should have follow up with new PCP to discuss improvement in pain vs. No improvement and also with hot flashes/night sweats. Discussed risks of HRT vs. Benefit. Patient understands risks. 5. Suzy-Danlos syndrome type III Will see if there is an Ehler's Danlos specialist in the area. Patient would like to see specialistwho deals specifically with her diagnosis. Has seen rheumatology here at [facility] already. documented in this encounter Plan of Treatment Upcoming Encounters Date Type Department Care Team (Late st Contact Info) Description 04/07/2024 3:20 PM EDT Office Visit Dermatology at [facility] [address] [place] [address] Dayanna Ramírez MD [facility] [address] [address] Scheduled Referrals Name Type Priority Associated Diagnoses Orde r Schedule Referral to Plastic Surgery Outpatient Referral Routine Abdominal pannus Ordered: 06/05/2017 documented as of this encounter Procedures Procedure Name Priority Date/Time Associated Diagnosis Comments EKG 12-LEAD Routine 06/05/2017 1:27 PM EDT Dyspnea on exertion Family history of cardiovascular disease documented in this encounter Results * STRESS ECHO W CONTRAST W LMTD SPEC DOPP COLOR DOPP (06/18/2017 12:05 PM EST) EF 60 HEARTLAB SYSTEM Anatomical Region Laterality Modality Other 06/18/2017 Narrative 06/18/2017 2:47 PM EST Procedure: ?Stress Echocardiogram Patient: ?DE LEON YUMIKO R ?(Age): 1970(47y) Med Rec#: ? [id number] ?Sex: ?F ? Site Loc: ? [facility] ?Ht / Wt: ??155(cm)/67(kg) Pt. Loc: ?Echo Lab ?BSA: ?1.66 Study Date: ?? 06/18/2017 ?Pt. Type: Tape: ? Referring: ABBY GUAMAN L Referring: Abby Guaman Reading: Pelon Zamudio ([id number]) Fur Ironer: Caleb Hancock Adjunct Physics Instructor: Bianca Erickson Diagnosis: *ICD-10-PCS Other forms of dyspnea (R06.09) Stage ? BP ?HR ? Rest ?114/88 ?70 ? Peak ?130/72 ?150 ? Recovery ?108/76 ?76 ? SUMMARY: 1. BASELINE: ?? There is normal global left ventricular systolic function. ??Ejection fraction is estimated to be 60%. There are no left ventricular segmental wall motion abnormalities. Doppler assessment is consistent with normal left sided filling pressure. ??Right ventricular chamber size, wall thickness, and systolic function are within normal limits. ??Normal chamber and aortic dimensions. Normal valve structures. EKG: normal sinus rhythm. The patient's oxygen saturation was 100%. 2. STRESS: ?? Patient followed a Marques protocol, exercised into stage 3, and the total exercise duration was:7:36 min. The patient achieved a level of 9 METS, peak ??HR= 150 bpm (87% MPHR), and peak BP= 152/70 mmHg. There was an inital normal BP response, but there was a drop at peak stress from 150/70 mmHg to 130/72 mmHg. ??DP= 22.8 K. ??There were no EKG changes or arrhythmias. ??All tse increased in contractile thickening, with no segmental wall motion abnormalities, with good contractile reserve with EF increasing from 60%-->75%. 3. IMPRESSION: ??No symptoms, EKG chanages, or imaging evidence for ischemia in response to an adequate stress and workload. ??Slight drop in systolic BP at peak stress of unkown clinical significance. ?? Findings Rest: Left Ventricle: ? There is normal global left ventricular systolic function. ??Ejection fraction is estimated to be 60%. ?There are no left ventricular segmental wall motion abnormalities. ?Doppler assessment is consistent with normal left sided filling pressure. Left Atrium: ? The left atrium is normal in size. Right Ventricle: ? Right ventricular chamber size, wall thickness, and systolic function are within normal limits. ?The estimated pulmonary artery systolic pressure is 23 mmHg.Plus RA pressure. Aortic Valve: ? The aortic valve is trileaflet. The leaflets are thin with normal excursion. There is no aortic stenosis or regurgitation present. Mitral Valve: ? The mitral valve leaflets appear normal. ?There is no evidence of mitral stenosis. ?There is trace mitral regurgitation present. Tricuspid Valve: ? The tricuspid valve leaflets are morphologically normal. ?There is mild (1+/4+) tricuspid regurgitation present. Pericardium: ? The pericardium appears normal and there is no evidence of a pericardial effusion. Aorta: ? The ascending aorta is normal in size. Stress: ? EKG: normal sinus rhythm. ?The patient's oxygen saturation was 100%. ?The patient is on no cardiac or blood pressure medications. Findings Peak: Predicted Values:The patient achieved a maximum heart rate of 150 which is 88% of the maximum predicted heart rate (171 beats/min). ??The target heart rate was achieved. Left Ventricle: ? Global left ventricular systolic function appears hyperdynamic. ?There are no left ventricular segmental wall motion abnormalities. ?Doppler assessment is consistent with normal left sided filling pressure. Stress: ? Patient followed a Marques protocol. ?The patient exercised into stage 3. ?The total exercise duration was:7:36 min. ?The study was terminated because of fatigue. ?The patient did not express feelings of chest discomfort. ?The patient experienced shortness of breath. 4/10 SOB at peak exercise. ?The blood pressure response was hypotensive.pt had a normal response in BP until peak when it dropped by 20mmHg. ?Exercise capacity was good. ?The patient achieved a level of 9 METS. ?There were no arrhythmias. ?This was a negative electrocardiographic stress test for ischemia. ?This was a negative echocardiographic stress test. ?The patient's oxygen saturation was 98%. Misc: ? Definity contrast (one 1.5 ml vial)was used to enhance endocardial definition. Excess contrast was discarded. ?Stress echo, limited spectral Doppler, color Doppler and ECG interpretation performed. Chambers 2D ?Value ?Units (Range) ? Ascending Ao ?2.8 ?cm (2 - 3.5) ? Volumes/Mass ?Value ?Units (Range) ? LA ESV BP (MOD) inde14.8 ? ml/m2 ? Diastolic/Systolic Function ?Value ?Units (Range) ? MV E-wave Vmax ?1 ?m/sec ? MV deceleration [id number] ?msec ? MV A-wave Vmax ?0.6 ?m/sec ? MV E:A ratio ?1.8 ?ratio ? LV septal e' Vmax ?? 0.1 ?m/sec ? LV lateral e' Vmax ??0.1 ?m/sec ? LV E:e' septal ratio7.6 ?ratio ? LV E:e' lateral rati7.1 ?ratio ? Tricuspid Valve ?Value ?Units (Range) ? TR Vmax ? 2.4 ?m/sec ? TR peak gradient ?23.4 ? mmHg ? RVSP ?23 ? mmHg ? Diastolic/Systolic Function ?Value ?Units (Range) ? MV E-wave Vmax ?1 ?m/sec ? MV deceleration [id number] ?msec ? MV A-wave Vmax ?0.8 ?m/sec ? MV E:A ratio ?1.3 ?ratio ? LV septal e' Vmax ?? 0.1 ?m/sec ? LV lateral e' Vmax ??0.2 ?m/sec ? LV E:e' septal ratio9.1 ?ratio ? LV E:e' lateral rati6.7 ?ratio ? Tricuspid Valve ?Value ?Units (Range) ? TR Vmax ? 2.4 ?m/sec ? TR peak gradient ?23 ? mmHg ? Wall Motion: Segment Name ?Rest ? Peak ? Base-Anteroseptal ?? Normal ? Normal ? Base-Anterior ? Normal ? Normal ? Base-Anterolateral ??Normal ? Normal ? Base-Posterolateral Normal ? Normal ? Base-Inferior ? Normal ? Normal ? Base-Inferoseptal ?? Normal ? Normal ? Mid-Anteroseptal ?Normal ? Normal ? Mid-Anterior ?Normal ? Normal ? Mid-Anterolateral ?? Normal ? Normal ? Mid-Posterolateral ??Normal ? Normal ? Mid-Inferior ?Normal ? Normal ? Mid-Inferoseptal ?Normal ? Normal ? [place]-Septal ? Normal ? Normal ? [place]-Anterior ? Normal ? Normal ? [place]-Lateral ?Normal ? Normal ? [place]-Inferior ? Normal ? Normal ? [place]-Tip ?Normal ? Normal ? This report has been electronically signed by: Pelon Dotson. MD Lizz ? 06/18/2017 14:47:27 Images reviewed and interpretation verified [facility] Cardiac Ultrasound Laboratory Procedure Note Pelon Zamudio MD - 06/18/2017 Procedure: Stress Echocardiogram Patient: MOISES Nava (Age): 1970(47y) Med Rec#: [id number] Sex: F Site Loc: [facility] Ht / Wt: 155(cm)/67(kg) Pt. Loc: Echo Lab BSA: 1.66 Study Date: 06/18/2017 Pt. Type: Tape: Referring: ABBY GUAMAN L Referring: Abby Guaman Reading: Pelon Zamudio ([id number]) Fur Ironer: Caleb Hancock Adjunct Physics Instructor: Bianca Erickson Diagnosis: *ICD-10-PCS Other forms of dyspnea (R06.09) Stage BP HR Rest 114/88 70 Peak 130/72 150 Recovery 108/76 76 SUMMARY: 1. BASELINE: There is normal global left ventricular systolic function. Ejection fraction is estimated to be 60%. There are no left ventricular segmental wall motion abnormalities. Doppler assessment is consistent with normal left sided filling pressure. Right ventricular chamber size, wall thickness, and systolic function are within normal limits. Normal chamber and aortic dimensions. Normal valve structures. EKG: normal sinus rhythm. The patient's oxygen saturation was 100%. 2. STRESS: Patient followed a Marques protocol, exercised into stage 3, and the total exercise duration was:7:36 min. The patient achieved a level of 9 METS, peak HR= 150 bpm (87% MPHR), and peak BP= 152/70 mmHg. There was an inital normal BP response, but there was a drop at peak stress from 150/70 mmHg to 130/72 mmHg. DP= 22.8 K. There were no EKG changes or arrhythmias. All tse increased in contractile thickening, with no segmental wall motion abnormalities, with good contractile reserve with EF increasing from 60%-->75%. 3. IMPRESSION: No symptoms, EKG chanages, or imaging evidence for ischemia in response to an adequate stress and workload. Slight drop in systolic BP at peak stress of unkown clinical significance. Findings Rest: Left Ventricle: There is normal global left ventricular systolic function. Ejection fraction is estimated to be 60%. There are no left ventricular segmental wall motion abnormalities. Doppler assessment is consistent with normal left sided filling pressure. Left Atrium: The left atrium is normal in size. Right Ventricle: Right ventricular chamber size, wall thickness, and systolic function are within normal limits. The estimated pulmonary artery systolic pressure is 23 mmHg.Plus RA pressure. Aortic Valve: The aortic valve is trileaflet. The leaflets are thin with normal excursion. There is no aortic stenosis or regurgitation present. Mitral Valve: The mitral valve leaflets appear normal. There is no evidence of mitral stenosis. There is trace mitral regurgitation present. Tricuspid Valve: The tricuspid valve leaflets are morphologically normal. There is mild (1+/4+) tricuspid regurgitation present. Pericardium: The pericardium appears normal and there is no evidence of a pericardial effusion. Aorta: The ascending aorta is normal in size. Stress: EKG: normal sinus rhythm. The patient's oxygen saturation was 100%. The patient is on no cardiac or blood pressure medications. Findings Peak: Predicted Values:The patient achieved a maximum heart rate of 150 which is 88% of the maximum predicted heart rate (171 beats/min). The target heart rate was achieved. Left Ventricle: Global left ventricular systolic function appears hyperdynamic. There are no left ventricular segmental wall motion abnormalities. Doppler assessment is consistent with normal left sided filling pressure. Stress: Patient followed a Marques protocol. The patient exercised into stage 3. The total exercise duration was:7:36 min. The study was terminated because of fatigue. The patient did not express feelings of chest discomfort. The patient experienced shortness of breath. 4/10 SOB at peak exercise. The blood pressure response was hypotensive.pt had a normal response in BP until peak when it dropped by 20mmHg. Exercise capacity was good. The patient achieved a level of 9 METS. There were no arrhythmias. This was a negative electrocardiographic stress test for ischemia. This was a negative echocardiographic stress test. The patient's oxygen saturation was 98%. Misc: Definity contrast (one 1.5 ml vial)was used to enhance endocardial definition. Excess contrast was discarded. Stress echo, limited spectral Doppler, color Doppler and ECG interpretation performed. Chambers 2D Value Units (Range) Ascending Ao 2.8 cm (2 - 3.5) Volumes/Mass Value Units (Range) LA ESV BP (MOD) inde14.8 ml/m2 Diastolic/Systolic Function Value Units (Range) MV E-wave Vmax 1 m/sec MV deceleration [id number] msec MV A-wave Vmax 0.6 m/sec MV E:A ratio 1.8 ratio LV septal e' Vmax 0.1 m/sec LV lateral e' Vmax 0.1 m/sec LV E:e' septal ratio7.6 ratio LV E:e' lateral rati7.1 ratio Tricuspid Valve Value Units (Range) TR Vmax 2.4 m/sec TR peak gradient 23.4 mmHg RVSP 23 mmHg Diastolic/Systolic Function Value Units (Range) MV E-wave Vmax 1 m/sec MV deceleration [id number] msec MV A-wave Vmax 0.8 m/sec MV E:A ratio 1.3 ratio LV septal e' Vmax 0.1 m/sec LV lateral e' Vmax 0.2 m/sec LV E:e' septal ratio9.1 ratio LV E:e' lateral rati6.7 ratio Tricuspid Valve Value Units (Range) TR Vmax 2.4 m/sec TR peak gradient 23 mmHg Wall Motion: Segment Name Rest Peak Base-Anteroseptal Normal Normal Base-Anterior Normal Normal Base-Anterolateral Normal Normal Base-Posterolateral Normal Normal Base-Inferior Normal Normal Base-Inferoseptal Normal Normal Mid-Anteroseptal Normal Normal Mid-Anterior Normal Normal Mid-Anterolateral Normal Normal Mid-Posterolateral Normal Normal Mid-Inferior Normal Normal Mid-Inferoseptal Normal Normal [place]-Septal Normal Normal [place]-Anterior Normal Normal [place]-Lateral Normal Normal [place]-Inferior Normal Normal [place]-Tip Normal Normal This report has been electronically signed by: Pelon Zamudio MD 06/18/2017 14:47:27 Images reviewed and interpretation verified [facility] Cardiac Ultrasound Laboratory Abby Guaman APRN ECHO ORDERABLES * EKG 12 Lead (06/05/2017 1:27 PM EDT) Ventricular rate 56 BPM MUSE SYSTEM Atrial Rate 56 BPM MUSE SYSTEM P-R Interval 128 ms MUSE SYSTEM QRS Duration 84 ms MUSE SYSTEM Q-T Interval 426 ms MUSE SYSTEM QTC Calculated (Bezet) 411 ms MUSE SYSTEM Calculated R Kennard 145 degrees MUSE SYSTEM Calculated T Kennard 140 degrees MUSE SYSTEM INTERPRETATION Sinus bradycardia Left posterior fascicular block Nonspecific ST and T wave abnormality Abnormal ECG No previous ECGs available Confirmed by MD Olinda, Herve ([id number]) on 06/05/2017 5:05:07 PM MUSE SYSTEM 06/05/2017 1:27 PM EDT 06/05/2017 5:05 PM EDT Abby Guaman APRN ECG ORDERABLES MUSE SYSTEM documented in this encounter Visit Diagnoses Diagnosis Dyspnea on exertion Other dyspnea and respiratory abnormality Family history of cardiovascular disease Family history of other cardiovascular diseases Abdominal pannus Localized adiposity Other chronic pain Suzy-Danlos syndrome type III Suzy-Danlos syndrome Dyspnea on exertion Other dyspnea and respiratory abnormality Family history of cardiovascular disease Family history of other cardiovascular diseases documented in this encounter Care Teams Sea Kayaking Guide Relationship Specialty Start Date End Date Abby Guaman APRN [facility] [place] [address] PCP - General Family Medicine 03/15/16 06/19/17 documented as of this encounter
--- OUTSIDE RECORDS SUMMARY | 2024-03-20 22:09 | XMS_ITS | Encounter Summary ---
Author Organization [facility] Address [facility] [place] [address] Care Team Providers Care Android Framework Developer Name Role Phone Abby Guaman APRN Primary Care Provider [phone] Reason for Visit * Consultation (Routine) - Closed Specialty Diagnoses / Procedures Referred By Contac t Referred To Contact Rheumatology Diagnoses EDS (Suzy-Danlos syndrome) Gastroesophageal reflux disease, esophagitis presence not specified SOB (shortness of breath) Fibromyalgia Abby Guaman APRN [facility] [place] [address] Kirt Rebolledo MD [facility] [place] [address] Referral ID Status Reason Start Date Expiration Date V isits Requested Visits Authorized [id number] Closed Consult, Test & Treat 02/11/2016 02/10/2017 1 1 Encounter Details Date Type Department Care Team (Late st Contact Info) Description 04/20/2016 2:00 PM EDT Office [place] [address] Kirt Rebolledo MD [facility] [place] [address] Suzy-Danlos syndrome type III Social History Tobacco [...] Sign Reading Time Taken Comments Blood Pressure 105/58 04/20/2016 1:46 PM EDT Pulse 67 04/20/2016 1:46 PM EDT Temperature 37 ??C (98.6 ??F) 04/20/2016 1:46 PM EDT Respiratory Rate - - Oxygen Saturation 99% 04/20/2016 1:46 PM EDT Inhaled Oxygen Concentration - - Weight 65.8 kg (145 lb) 04/20/2016 1:46 PM EDT Height 154.9 cm (5' 1) 04/20/2016 1:46 PM EDT Body Mass Index 27.4 04/20/2016 1:46 PM EDT documented in this encounter Progress Notes * Kirt Rebolledo MD - 04/20/2016 2:00 PM EDT RHEUMATOLOGY STAFF OFFICE NOTE Patient Name: Yumiko Chang Date of encounter: 04/20/2016 Ms. Chang is a 46 y.o. female whom I am seeing at the request of Abby Guaman APRN for evaluation of joint pains. Yumiko had been seen in the [facility] [place]um clinic years ago, by Dr. Montgomery, and prior to that she was seen by Dr. Cornell. She was diagnosed with history of probably NEENA and fibromyalgia. Since she was seenyears ago, she tells me that she was referred to genetics last fall and was diagnosed with EDS typeIII. She reports that she is double jointed and her children also are double jointed. She is having a lot of pain every day. She has been gaining 30 pounds in the last year. She used josé miguel very active, but with increasing injuries (shoulder dislocation, calf pull) she would slip back and not be as active. She has recently started aquatic therapy and has found this to be fantastic. However, she can only do this through a referral and is going to stop being able to do this. She describes herself as feeling like a bag of marbles, which is the sensation she has when she walks. She had taken naprosyn for years, since the age of 18. She started getting stomach issues, and then was switched to Vioxx, and Bextra. She had 2 minor heart attacks while on this, so stopped. Therefore, she has gone back to naproxen 500mg twice daily if needed. However, she is finding that naproxen is no longer working. Ibuprofen, tylenol, are not working. She also has tried gabapentin and this was terrible. She has tried amitriptyline and this made her feel loopy. She has been on muscle relaxants, and also was on diazepam, but she did not like those options. She does no recall having ever been on Lyrica or Cymbalta. The rest of the ROS was reviewed and is found to be negative. [facility] - NEENA - fibromyalgia - Asthma - Depression - PTSD - GERD - CAD - Tubal ligation - Laparoscopy in 1987 for pelvic/abdominal pain. HOME MEDICATIONS: Current Outpatient Prescriptions Medication Sig Dispense Refill ??? sertraline (ZOLOFT) 50 mg Tablet Take 1 tablet by mouth 2 times daily. 90 tablet 1 ??? levalbuterol (XOPENEX HFA) 45 mcg/actuation HFA Aerosol Inhaler Inhale 1-2 puffs into the lungsevery 4 hours as needed. 1 Inhaler 3 ??? furosemide (LASIX) 20 mg Tablet Take one tablet (20mg) daily in the morning 30 tablet 2 ??? omeprazole (PRILOSEC) 20 mg Capsule, Delayed Release(E.C.) Take 1 capsule by mouth daily. 90 capsule 1 ??? naproxen sodium (ANAPROX) 550 mg Tablet Take 1 tablet by mouth 2 times daily as needed. 60 tablet 11 ??? Evening Gilbert Oil (EVENING PRIMROSE) 500 mg Capsule Take 1 capsule by mouth daily. (Patient not taking: Reported on 04/20/2016) 90 capsule 0 No current facility-administered medications for this visit. ALLERGIES/ADVERSE REACTIONS Allergies Allergen Reactions ??? Latex Rash ??? Azithromycin Anaphylaxis ??? Penicillins Anaphylaxis ??? Epinephrine Other (See Comments) fast heart rate ??? Influenza Virus Vaccines Declines based on prior fevers, fatigue. FAMILY HISTORY: Cardiac issues in the family. She is not aware of any aneurysms in the family. She has aunts and a grandmother with RA. SOCIAL HISTORY: Lives in [place], [place]. , and has 5 children, all but 2 are adults. She is not working. There is no alcohol or tobacco use. PHYSICAL EXAM BP 105/58 Pulse 67 Temp 37 ??C (98.6 ??F) (Oral) Ht 154.9 cm (5' 1) Wt 65.8 kg (145 lb) LMP 05/13/2015 SpO2 99% BMI 27.4 kg/m2 Gen: Alert, NAD, oriented, conversant HEENT: Anicteric, no scleral injection, OP clear, MMM, external ears are unremarkable. Neck: supple, no LAD, no thyromegaly, there is limitation with rightward rotation. CV: RRR, no m/r/g Resp: CTA B Back: There is tenderness at the base of the spine. Abd: Soft, minor tenderness, ND Ext: No LE edema, nodules or cyanosis Joint exam: A full joint exam was performed: Shoulders: The right shoulder has crepitance and popping with movement. The left has some crepitance, but less. Elbows: There is tenderness at the lateral forearm bilaterally; does not have hyperextension Wrists: No swelling, there is tenderness of both wrists, full flexion and extension Hands: No tenderness or swelling of the MCPs, PIPs, DIPs. These fingers are very loose. She can appose the left thumb and pull the pinky parallel to the forearm. Hips: No trochanteric tenderness. Knees: No effusions, there is left knee joint line tenderness, the knees do hyperextend. Ankles: The ankles are tender without swelling. no Achilles pain. Feet: No MTP swelling or tenderness. Beighton criteria: She meets 5/9 criteria (left thumb and pinky, knees, and putting her palms to the floor) Skin: No rashes or erythema LABORATORY DATA IMAGING ASSESSMENT AND PLAN Yumiko is a 46 year old who has a prior history of NEENA but has recently been diagnosed with Suzy-Danlos type III. From her history and exam, I agree that she has EDS. I do not see any evidence of active inflammatory arthritis, so it seems that the NEENA has resolved. Yumiko is looking for options to treat her pain. I have explained that with EDS, patients tend to get early OA, and this appears to be happening, especially in the right shoulder. In addition, it is common for patients with EDS to have fibromyalgia-type pain, though the etiology for this is not clear. So, she has a combination of OA and fibro pain, or nerve hypersensitivity contributing to her pain. Further, joints that are unstable are likely to provide more pain. The first recommendation I have made is to focus on joint protection. This includes wearing braces on vulnerable joints, such as ankles or wrists, if these tend to give out easily. Further, strengthening the muscles around joints can help to maintain their stability. Therefore, I fully support her continuing in aquatic therapy, as this will allow for muscle strengthening while simultaneously protecting her joints from too much strain. For medications, she has already tried many of the options I would have liked to try. She recently has found that naproxen is no longer helpful. We are going to switch to diclofenac 50mg bid, with the option of increasing to 75mg bid. If this is not effective, then we can consider switching to meloxicam or we could also have Lyrica as a back up option. I will see her back in 6-8 weeks to see if we are making progress. documented in this encounter Plan of Treatment Upcoming Encounters Date Type Department Care Team (Late st Contact Info) Description 04/07/2024 3:20 PM EDT Office Visit Dermatology at [facility] [address] [place] [address] Dayanna Ramírez MD [facility] [address] [place] [address] documented as of this encounter Visit Diagnoses Diagnosis Suzy-Danlos syndrome type III Suzy-Danlos syndrome documented in this encounter Care Teams Android Framework Developer Relationship Specialty Start Date End Date Abby Guaman APRN [facility] [place] [address] PCP - General Family Medicine 03/15/16 06/19/17 documented as of this encounter
--- OUTSIDE RECORDS SUMMARY | 2024-03-20 22:09 | XMS_ITS | Encounter Summary ---
Author Organization [facility] Address [facility] [place] [address] Care Team Providers Care Repairer Auto Clocks Name Role Phone Jayna Velasquez MD Primary Care Provider [phone] Reason for Visit * Physical Therapy (Routine) - Closed Specialty Diagnoses / Procedures Referred By Contac t Referred To Contact Physical Therapy Diagnoses EDS (Suzy-Danlos syndrome) SOB (shortness of breath) Other chronic pain Abby Guaman, BUNG DRIVER [facility] [place] [address] [facility] [address] [place] [address] Referral ID Status Reason Start Date Expiration Date V isits Requested Visits Authorized [id number] Closed Evaluate and Treat 02/11/2016 02/10/2017 1 1 Encounter Details Date Type Department Care Team (Late st Contact Info) Description 02/25/2016 8:45 AM EDT Office Visit Physical Therapy at [facility] [address] [place] [id number] Yuko Mejia, PT [facility] [place] [address] Suzy-Danlos syndrome type III; Fibromyalgia; Rheumatoid arthritis [...] as of this encounter Progress Notes * Yuko Mejia, PT - 02/25/2016 8:45 AM EDT General Physical Therapy Initial Evaluation Note: Outpatient Date of Exam/First Treatment: 02/25/2016 Date of onset: 1 year Referring Provider: Abby Guaman MD Diagnosis: 1. Suzy-Danlos syndrome type III 2. Fibromyalgia 3. Rheumatoid arthritis involving multiple sites, unspecified rheumatoid factor presence History of current problem: Yumiko Chang is a 46 y.o. female referred to physical therapy for EDS RA, Fibromyalgia. She has had multiple medical issues in the last year and has been unable to exercise regular. She has always been very active but now finds it hard to do much. She understands that she should no longer use thegym for weights and working out. Feel pool would be a great modality for her to exercise to protectjoint and build endurance and strength. Medical/Surgical History: refer to electronic medical record Prior Level of Function: Independent high level functioning. Functional Limitations: unable to walk a full flight of stairs. 2. Walking limitied 3. Hard to grab and hold things. 4. Unable to lift and hold grand child. OBJECTIVE: Pain: at best: 2/10; at worst: 6/10 varies day to day. Located: diffuse Describes pain as: aching, burning, dull, numbing and tingling Posture: pt does exhibit looseness in the knees, ankles and elbows. she is limited by pain and fatigue with a lot of her activity. Palpation: No tenderness with palpation noted pt notes however that she feels she is loosing the sense of touch in her hands. Has trouble holding fine paint brushes. Discussed the sensation deficit in the hands. Discussed how to work on sensory deficit with multiple textures. Given blue sponge for gripping. Instructed increase handle air control electronics operator to allow easier gripping. Also steering wheel cover. Special Tests: Further Objective Information: Strength: bilateral lower extremity. Hip flexion 4, ab 4, knee ext 4, knee flexion 4. No joint deformities noted today. Discussed movement and bodies need for it. Assessment: These findings are consistent with EDS, RA, fibromyalgia. She is in need of an exercise program to be able to exercise and build some strength without causing over pressure of the joints. She will most benefit from a pool exercise program for this. Discussed that this is a great environment for exercise. Discussed pool program and that it leads to an independent program that she will be able to carry out on her own in one of the local pools. Pt is receptive to this. She does live near [facility]. Information about there pool was given to pt. Physical therapy is indicated to: increase strength and improve balance Goals: Short term goals (2 weeks ) 1. Patient to be indep with home exercise program. 2. Pt able to get to pool and begin learing an appropriate program. Goals: rn long term care goals (6 weeks ) 1. Pt independent in self directed pool exercise program for strength and endurance. Interventions completed today: initial evaluation Physical therapy plan: 2 x per week x 5 weeks,in pool to develop an independent pool exercise program. Other Recommendations: No other consults recommended at this time The plan has been discussed with the patient and they have agreed with the planned treatment. Total Treatment time: 50 minutes Total Timed Code Treatment: 50 minutes YUKO MEJIA PT documented in this encounter Plan of Treatment Upcoming Encounters Date Type Department Care Team (Late st Contact Info) Description 04/07/2024 3:20 PM EDT Office Visit Dermatology at [address] [address] Dayanna Ramírez MD [facility] [address] [place] [address] Scheduled Referrals Name Type Priority Associated Diagnoses Orde r Schedule Referral to Physical Therapy Outpatient Referral Routine EDS (Suzy-Danlos syndrome) SOB (shortness of breath) Other chronic pain Ordered: 02/11/2016 documented as of this encounter Visit Diagnoses Diagnosis Suzy-Danlos syndrome type III Suzy-Danlos syndrome Fibromyalgia Mylagia and myositis, unspecified Rheumatoid arthritis involving multiple sites, unspecified rheumatoid factor presence documented in this encounter Care Teams Repairer Auto Clocks Relationship Specialty Start Date End Date Jayna Velasquez MD [facility] [place] [address] PCP - General Family Medicine 02/07/16 03/14/16 documented as of this encounter
--- OUTSIDE RECORDS SUMMARY | 2024-03-20 22:09 | XMS_ITS | Encounter Summary ---
Author Organization [place] [address] Care Team Providers Care Biostatistician Name Role Phone Abby Guaman APRN Primary Care Provider [phone] Encounter Details Date Type Department Care Team (Late st Contact Info) Description 04/06/2016 11:30 AM EDT Office Visit [facility] [address] [place] [address] Grisel Causey, CLIENT ACCOUNT ASSISTANT [facility] PHYS[facility] MED[facility] & [place] [address] Suzy-Danlos syndrome type III; Fibromyalgia; Rheumatoid arthritis [...] of this encounter Progress Notes * Grisel Causey, ALIE - 04/06/2016 11:30 AM EDT Aquatic Physical Therapy Treatment Note Total Treatment Time: 40 min Time Coded Treatment: 15 min Insurance: Payor: [place]ICAID [place] / Plan: [place] PRIMARY CARE PLUS / Product Type: *No Product type* / Pool visit # 7 Follow up visit for patient with 1. Suzy-Danlos syndrome type III 2. Fibromyalgia 3. Rheumatoid arthritis involving multiple sites, unspecified rheumatoid factor presence S: Pt reports she is a little stressed prepping for a couple events this weekend. Has changed her pillow and feels less sx in the morning. O: Aquatic Therex, individualized exercise program in a group settin.5# ankle weights except when using floats cues for core and scap engagement/stabilizations and on 1/2->3/4 range with all therex to work stability vs flexibility ankle floats for hip/core stab: hip 3 way with UE assist at wall as needed (worked on trying to compete without UE assist, extremely challenging) walking forward, retro, lateral working mechanics and posture suspended by noodle in deep water: cross country skiing hip abd/add shoulder rolls, retractions semi squat position for core and scap stab: shld AROM: flex/ext, abd/add, horiz abd/add, IR/ER squats A: Coaching today on not pushing hard for correct scap stab, only reported [place] sx with deep water cross country skiing today. P: Cont per PT POC and goals. Treatment and note completed by Grisel Causey PTA documented in this encounter Plan of Treatment Upcoming Encounters Date Type Department Care Team (Late st Contact Info) Description 04/07/2024 3:20 PM EDT Office Visit Dermatology at [facility] [address] [place] [phone] Dayanna Ramírez MD [facility] [address] [place] [address] documented as of this encounter Visit Diagnoses Diagnosis Suzy-Danlos syndrome type III Suzy-Danlos syndrome Fibromyalgia Mylagia and myositis, unspecified Rheumatoid arthritis involving multiple sites, unspecified rheumatoid factor presence documented in this encounter Care Teams Biostatistician Relationship Specialty Start Date End Date Abby Guaman APRN [facility] [place] [address] PCP - General Family Medicine 03/15/16 06/19/17 documented as of this encounter
--- OUTSIDE RECORDS SUMMARY | 2024-03-20 22:09 | XMS_ITS | Encounter Summary ---
Author Organization [facility] [place] [address] Care Team Providers Care Insurance Follow Up Representative Name Role Phone Jayna Velasquez MD Primary Care Provider [phone] Reason for Referral * Psychiatric (Routine) - Closed Specialty Diagnoses / Procedures Referred By Diego ramos Referred To Contact Psychiatry Diagnoses Memory changes EDS (Suzy-Danlos syndrome) Fibromyalgia Procedures PRO NEUROPSYCHOLOGICAL TESTING,PER HOUR BY SHELL MOLD BONDING MACHINE OPERATOR Abby Guaman, BERRY PICKER MACHINE OPERATOR [facility] [place] [address] [facility] [address] [place] [id number] Referral ID Status Reason Start Date Expiration Date V isits Requested Visits Authorized [id number] Closed Consult, Test & Treat 02/11/2016 02/10/2017 1 1 * Physical Therapy (Routine) - Closed Specialty Diagnoses / Procedures Referred By Contac t Referred To Contact Physical Therapy Diagnoses EDS (Suzy-Danlos syndrome) SOB (shortness of breath) Other chronic pain Abby Guaman APRN [facility] [place] [address] [facility] [address] [place] [address] Referral ID Status Reason Start Date Expiration Date V isits Requested Visits Authorized [id number] Closed Evaluate and Treat 02/11/2016 02/10/2017 1 1 * Consultation (Routine) - Closed Specialty Diagnoses / Procedures Referred By Contcrista t Referred To Contact Rheumatology Diagnoses EDS (Suzy-Danlos syndrome) Gastroesophageal reflux disease, esophagitis presence not specified SOB (shortness of breath) Fibromyalgia Abby Guaman APRN [facility] [place] [address] Kirt Rebolledo MD [facility] [place] [address] Referral ID Status Reason Start Date Expiration Date V isits Requested Visits Authorized [id number] Closed Consult, Test & Treat 02/11/2016 02/10/2017 1 1 Reason for Visit * Reason Comments Establish Care generalized pain, pt recently diagnosed with EDS, pt has gained 30 lbs and pt can hardly walk for almost a year, pt thinks retaining fluid Edema one year Abdominal Pain sharp pains and shoo ts hot olive oil and burning pt throat for 2 days Encounter Details Date Type Department Care Team (Late st Contact Info) Description 02/11/2016 1:00 PM EDT Office Visit Family Medicine at [facility] [address] [place] [address] Abby Guaman, BERRY PICKER MACHINE OPERATOR [facility] [place] [address] EDS (Suzy-Danlos syndrome); Fibromyalgia; Rheumatoid arthritis involving multiple sites, unspecified rheumatoid factor presence; Other chronic pain; Bilateral leg edema; Gastroesophageal reflux disease, esophagitis presence not specified; SOB (shortness of breath); Memory changes Social History Tobacco Use Types Packs/Day [...] Sign Reading Time Taken Comments Blood Pressure 118/72 02/11/2016 1:14 PM EDT Pulse 72 02/11/2016 1:14 PM EDT Temperature 36.7 ??C (98.1 ??F) 02/11/2016 1:14 PM ED T Respiratory Rate 16 02/11/2016 1:14 PM EDT Oxygen Saturation 98% 02/11/2016 1:14 PM EDT Inhaled Oxygen Concentration - - Weight 64.7 kg (142 lb 9.6 oz) 02/11/2016 1:14 P M EDT Height 154.6 cm (5' 0.87) 02/11/2016 1:14 PM ED T Body Mass Index 27.06 02/11/2016 1:14 PM EDT documented in this encounter Patient Instructions * Patient Instructions* Abby Guaman, BERRY PICKER MACHINE OPERATOR - 02/11/2016 2:09 PM EDT Follow up with DR KAUFMAN ([facility]) Complete testing ordered. GERD GERD Diet Recommendations Avoid spicy foods, citrus fruits and juices, tomatoes, onions, red meat,coffee/tea and other caffeine, chocolate, butter, oils, fried foods, pepper, peppermint, rich sauces, greasy foods. Cut out alcohol completely. Foods that my be helpful/safer to try: rice, cous cous, fish/seafood, chicken, turkey (no skin and not fried), bananas, melon, green vegetables like broccoli or green beans, celery, salad (go light on the dressing), oatmeal. GERD Lifestyle Adjustments Eat small frequent meals, every 2 hours or so. Avoid alcohol completely. Sleep at more upright angle. Try graduated pillow propping so that you are not lying flat all night. Can also try tilting entire bed up by using cider blocks under head of bed. Do not lie down within1 hour of eating. Do not bend over frequently or exercise within one hour of eating. Take daily acid herbicide sprayer medication (omeprazole 20mg once in morning, if no improvement in 2 weeks, increase to 40mg once in morning)as directed by your provider. Remember this can take 2-4 weeks to take full effect so give it a chance to work before you stop the medication. You may also try intermittently taking Over the counter Tums or Rolaids for relief of GERD symptoms. If you feel that you are using these more than 3 times daily you should talk to your provider about your medication choice. documented in this encounter Progress Notes * Abby Guaman APRN - 02/11/2016 1:22 PM EDT Yumiko Chang is a 46 y.o. female here today for Chief Complaint Patient presents with ??? Establish Care generalized pain, pt recently diagnosed with EDS, pt has gained 30 lbs and pt can hardly walk for almost a year, pt thinks retaining fluid ??? Edema one year ??? Abdominal Pain sharp pains and shoots hot olive oil and burning pt throat for 2 days HPI Establish Care/Multiple Concerns Yumiko is a pleasant 46 y.o. Female here to establish care at Primary Care. She was a previous patient of [facility]. Says that she has been bumped around and doesn't really have a primary care. Says that her specialists have all taken care of her adequately but doesn't have anyone managing her in primary care. Is very concerned that things were not followed up on after her last visit at [facility]. Says she feels she has been forgotten. EDS type III / Fibromyalgia /Rheumatoid Arthritis Saw Dr. Alana Hewitt with Genetics for Suzy-Danlos Syndrome 09/09/15. Genetics wanted her to to see rheumatology (Dr. Cole Rebolledo) for pain with EDS and a referral was never placed. Also wanted her to get a DEXA scan for a baseline bone density and this order was never placed by [facility] primary care. Was advised to use Aquatherapy for her pain with EDS and Fibromyalgia and rheumatoid arthritis but never got this referral placed. Is requesting that I complete these things for her today. Continues to have life-long chronic joint pain, joint dislocations, GI dysfunction, easy bruising. Currently taking Naproxen for pain and is aware that this is hurting her GI tract. Would like better pain control and wants to see Rheumatology that specializes in pain control for her conditions rather than chronic pain clinic. Did have a cardiac Echo done and was normal (2015). Bilateral Lower Extremity Edema and Shortness of Breath/? Asthma Is on HCTZ for bilateral lower extremity edema. Takes 25mg of HCTZ in a.m. Feels that this is somewhat helpful but the edema returns at night. She has tried splitting her dosing to twice daily (12.5mg BID) but then has to get up and pee all night. Bilateral lower extremity edema present for about a year. Not edematous today. Says that she noticed that when she takes the HCTZ she feels like she can breath easier. wondering if she has fluid on her lungs. Shortness of breath intermittently with exertion and sitting still for the past week. Her chart hasa history of Asthma on her problem list but says that she has never had testing for asthma (no PFTsin past). No cough or sputum production. No fevers or chills. Epigastric abdominal pain and Reflux Has had chronic issue with GERD. Gets daily heartburn and reflux that is forceful for past several months. Reflux that tastes like hot olive oil. Throat gets sore. Has been trying to take rolaids but is not consistent. Has not been on a PPI or I7miuebzd in past year or two and wondering what to take. Thought it was Hot flashes originally but has now noticed that she gets upper abdominal pain and cramping associated with the reflux. 15 years ago she did an endoscopy and colonoscopy done. Found nothing concerning. Memory changes Change in short term memory, feels that she is forgetting what she does. Has had issues with brainfog forever. But seems to be getting worse.Has to take photo of grocery list because she will losethe paper. Forgot that she drove and had walked to work. Mother has dementia. Would like further testing Patient???s score Maximum score Questions 5 5 What is year? Season? Date? Day of the week? Month? 5 5 What state? County? Town/City? Hospital? Department? 3 3 The examiner names 3 unrelated objects clearly and slowly then asks the patient to name all 3 of them. The patient???s first response is used for scoring. The examiner repeats them until patient learns all of them if possible. Number of trials:___ Tell patient you will ask for them in a little while. 5 5 Spell WORLD backwards 2 3 Recall of prior 3 objects 2 2 Show 2 simple objects (pen/wristwatch) and have the patient name them 1 1 Repeat ???No ifs ands or buts?? 3 3 ???Take the patient in your right hand, fold it in half, and put it on the floor?? 1 1 Please read this and do what it says ( written instruction is ???close your eyes?? ) 1 1 ???make up and write a sentence about anything?? (must contain a noun and verb) 1 1 Please copy picture of intersecting pentagons. All 10 angles must be present and 2 must intersect. 29 30 total 24-30 no cognitive impairment 18-23 Mild cognitive impairment 0-17 severe cognitive impairment (21 abnormal for 8th grade education, <23 abnormal for high school education, <24 abnormal for college education)[place] Review of Systems Constitutional: Positive for fatigue. Negative for chills, diaphoresis and fever. HENT: Positive for sore throat (intermittently with reflux). Negative for facial swelling, mouth sores and trouble swallowing. Respiratory: Positive for shortness of breath. Negative for cough, chest tightness, wheezing and stridor. Cardiovascular: Positive for leg swelling. Negative for chest pain and palpitations. Gastrointestinal: Positive for abdominal pain. Negative for abdominal distention, blood in stool, diarrhea, nausea and vomiting. Genitourinary: Negative for dysuria, flank pain, pelvic pain, vaginal bleeding and vaginal discharge. Musculoskeletal: Positive for arthralgias, back pain, joint swelling, myalgias and neck pain. Skin: Negative for rash. Allergic/Immunologic: Positive for environmental allergies. Neurological: Negative for dizziness, tremors, syncope, weakness, light- headedness and headaches. Hematological: Negative for adenopathy. Objective Vitals: 02/11/16 1314 BP: 118/72 Pulse: 72 Resp: 16 Temp: 36.7 ??C (98.1 ??F) Wt Readings from Last 3 Encounters: 02/11/16 64.7 kg (142 lb 9.6 oz) 09/14/15 62.7 kg (138 lb 3.2 oz) 09/13/15 62.5 kg (137 lb 12.8 oz) BP Readings from Last 3 Encounters: 02/11/16 118/72 09/14/15 110/62 09/13/15 113/75 PF Readings from Last 3 Encounters: 02/11/16 350 L/min Expected Peak flow reading is 450. Patient reported measures: Pain:6 Physical Health:[place]: Physical Exam Constitutional: She is oriented to person, place, and time. She appears well- developed and well-nourished. HENT: Head: Normocephalic and atraumatic. Eyes: Pupils are equal, round, and reactive to light. Neck: Normal range of motion. Neck supple. No thyroid mass and no thyromegaly present. Cardiovascular: Normal rate, regular rhythm, S1 normal, S2 normal and normal heart sounds. Pulses: Carotid pulses are 2+ on the right side, and 2+ on the left side. Posterior tibial pulses are 2+ on the right side, and 2+ on the left side. Mild non-pitting edema on lower extremities today, lower half of lower legs and ankles. Last HCTZ dose was 25mg at 8am Pulmonary/Chest: Effort normal and breath sounds normal. She has no decreased breath sounds. She has no wheezes. She has no rhonchi. She has no rales. Lymphadenopathy: Head (right side): No submental, no submandibular, no tonsillar, no preauricular, no posterior auricular and no occipital adenopathy present. Head (left side): No submental, no submandibular, no tonsillar, no preauricular, no posterior auricular and no occipital adenopathy present. She has no cervical adenopathy. Neurological: She is alert and oriented to person, place, and time. She has normal strength. No cranial nerve deficit or sensory deficit. Skin: Skin is warm and dry. No rash noted. Psychiatric: She has a normal mood and affect. Her speech is normal and behavior is normal. Judgment and thought content normal. Cognition and memory are normal. Spent >60minutes face to face with patient Assessment/Plan: 1. EDS (Suzy-Danlos syndrome) - Referral to Rheumatology-EDS specialist - Dexa Central-Spine, Hip, And/Or Whole Body; Future - Referral to Physical Therapy-Aquatic therapy - Referral to Neuropsychology-memory changes 2. Fibromyalgia -counseled to decrease/stop NSAID use due to GI side effects - Referral to Rheumatology-EDS specialist - Referral to Neuropsychology 3. Rheumatoid arthritis involving multiple sites, unspecified rheumatoid factor presence As above 4. Other chronic pain -Referral to EDS specialist in Rheumatology - Referral to Physical Therapy 5. Bilateral leg edema Will take 20mg Lasix in morning and 12.5 to 25mg HCTZ in afternoon depending on need with edema. Counseled on potassium intake in diet - hydrochlorothiazide (MICROZIDE) 12.5 mg Capsule; Take one capsule (12.5mg) by mouth in late afternoon Dispense: 30 capsule; Refill: 5 - furosemide (LASIX) 20 mg Tablet; Take one tablet (20mg) daily in the morning Dispense: 30 tablet;Refill: 2 6. Gastroesophageal reflux disease, esophagitis presence not specified 8 week trial of PPI GERD lifestyle adjustments given. To try 20mg once daily for 2 weeks and if no improvement increase to 40mg daily dose. -consider EGD in near future if PPI trial fails -Discussed h.pylori testing as well (thinks she had this done recently but will check) - omeprazole (PRILOSEC) 20 mg Capsule, Delayed Release(E.C.); Take 1 capsule by mouth daily. Dispense: 90 capsule; Refill: 1 7. SOB (shortness of breath) Will get PFTs done Continue to use inhaler as needed Start lasix for edema and continue HCTZ as above - Pulmonary Function Testing; Future 8. Memory changes Will refer for further testing. MiniMental normal today - Referral to Neuropsychology documented in this encounter Plan of Treatment Upcoming Encounters Date Type Department Care Team (Late st Contact Info) Description 04/07/2024 3:20 PM EDT Office Visit Dermatology at [facility] [address] [place] [address] Dayanna Ramírez MD [facility] [address] [place] [address] Scheduled Referrals Name Type Priority Associated Diagnoses Order Schedule Referral to Rheumatology Outpatient Referral Routine EDS (Suzy-Danlos syndrome) Gastroesophageal reflux disease, esophagitis presence not specified SOB (shortness of breath) Fibromyalgia Ordered: 02/11/2016 Referral to Physical Therapy Outpatient Referral Routine EDS (Suzy-Danlos syndrome) SOB (shortness of breath) Other chronic pain Ordered: 02/11/2016 Referral to Neuropsychology Outpatient Referral Routine Memory changes EDS (Suzy-Danlos syndrome) Fibromyalgia Ordered: 02/11/2016 documented as of this encounter Results * Pulmonary Function Testing (03/14/2016 2:28 PM EDT) Narrative Anival Duenas MD - 03/14/2016 2:28 PM EDT Anival Duenas MD ? 03/14/2016 ??2:28 PM Forced vital capacity is normal. FEV1 is normal. The ratio is normal. There is no significant response to bronchodilation. Normal spirometry without significant response to bronchodilation. Anya Portillo MD PFT ORDERABLES * Dexa Central-Spine, Hip, And/Or Whole Body (02/22/2016 2:14 PM EDT) Anatomical Region Laterality Modality C-spine, Hip N/A Radiographic Magalis ging Impressions 02/25/2016 5:06 PM EDT The measurements fulfill the WHO classification for normal. Estimating Fracture Risk: ? The relationship between bone mineral density (BMD) and risk of fracture is well established. As BMD decreases, risk increases. Quantifying risk is difficult and is usually limited to estimation of the relative risk - a term which may have limited value when trying to discuss an individual's risk. Estimating the absolute risk for a patient requires an understanding of the incidence rate in a given population and consideration of multiple, partially independent, risk factors in addition to BMD. ? The World Health Organization (WHO) has developed a fracture risk prediction tool that calculates a ten-year risk of major osteoporotic fracture based on femoral neck bone density measurements and nine clinical risk factors for individuals who have not been treated for osteoporosis. This is available through an interactive web-based interface (http://www.shef.ac.uk/FRAX/) and can be used to estimate a given patient's absolute risk of major osteoporotic fracture or hip fracture over the next 10 years. These estimates may prove useful when discussing risk with a patient. It is important, however, to understand the tool's limitations and how a given individual's risk might differ from the tool's estimate. The tool does not take into account the dose-response associated with most risk factors. For example, the significant increase in risk associated with multiple prior fractures compared to a single prior fracture is not taken into account. Similarly, the location of a previous fracture, the amount of glucocorticoids and number of cigarettes smoked are not considered. These limitations are discussed in a Frequently Asked Questions section of the FRAX website which you are encouraged to review. ? DEXA data sheets with BMD measurements and plots are available in [facility] under the imaging tab. Paper copies will be sent to providers without [facility] access. If you have received this report without the data sheet and do not have access to [facility], please contact Radiology Undercutter Operator at [phone] Sunday thru Sunday 8am-4pm. Narrative 02/25/2016 5:06 PM EDT EXAMINATION: DEXA ??CENTRAL SPINE, HIP, AND/OR WHOLE BODY CLINICAL HISTORY: 46-year-old female ?? EDS, chronic pain, advanced rheumatoid arthritis- needs baseline bone density TECHNIQUE: Scans were acquired at the lumbar spine, ?and left hip. COMPARISON: none FINDINGS: Lowest T-score at a diagnostic region of interest: T-score: -0.1, EDILSON: Femoral neck, WHO diagnosis: Normal. Procedure Note Shiloh Perknis MD - 02/25/2016 EXAMINATION: DEXA CENTRAL SPINE, HIP, AND/OR WHOLE BODY CLINICAL HISTORY: 46-year-old female EDS, chronic pain, advancedrheumatoid arthritis- needs baseline bone density TECHNIQUE: Scans were acquired at the lumbar spine, and left hip. COMPARISON: none FINDINGS: Lowest T-score at a diagnostic region of interest: T-score: -0.1, EDILSON: Femoral neck, WHO diagnosis: Normal. IMPRESSION The measurements fulfill the WHO classification for normal. Estimating Fracture Risk: ? The relationship between bone mineral density (BMD) and risk of fractureis well established. As BMD decreases, risk increases. Quantifying risk isdifficult and is usually limited to estimation of the relative risk - a term which mayhave limited value when trying to discuss an individual's risk. Estimatingthe absolute risk for a patient requires an understanding of the incidencerate in a given population and consideration of multiple, partially independent,risk factors in addition to BMD. ? The World Health Organization (WHO) has developed a fracture riskprediction tool that calculates a ten-year risk of major osteoporotic fracture basedon femoral neck bone density measurements and nine clinical risk factorsfor individuals who have not been treated for osteoporosis. This isavailable through an interactive web-based interface (http://www.shef.ac.uk/FRAX/)and can be used to estimate a given patient's absolute risk of majorosteoporotic fracture or hip fracture over the next 10 years. These estimates mayprove useful when discussing risk with a patient. It is important, however, to understand the tool's limitations and how a given individual's risk mightdiffer from the tool's estimate. The tool does not take into account thedose-response associated with most risk factors. For example, the significant increasein risk associated with multiple prior fractures compared to a single priorfracture is not taken into account. Similarly, the location of a previous fracture,the amount of glucocorticoids and number of cigarettes smoked are notconsidered. These limitations are discussed in a Frequently Asked Questions sectionof the FRAX website which you are encouraged to review. ? DEXA data sheets with BMD measurements and plots are available in [facility] the imaging tab. Paper copies will be sent to providers without [facility] access.If you have received this report without the data sheet and do not haveaccess to [email or web address], please contact Radiology Undercutter Operator at [phone] Sunday thruFriday 8am-4pm. Jayna Velasquez MD IMG DEXA ORDERABLES documented in this encounter Visit Diagnoses Diagnosis EDS (Suzy-Danlos syndrome) Suzy-Danlos syndrome Fibromyalgia Mylagia and myositis, unspecified Rheumatoid arthritis involving multiple sites, unspecified rheumatoid factor presence Other chronic pain Bilateral leg edema Edema Gastroesophageal reflux disease, esophagitis presence not specified SOB (shortness of breath) Shortness of breath Memory changes Memory loss EDS (Suzy-Danlos syndrome) Suzy-Danlos syndrome SOB (shortness of breath) Shortness of breath documented in this encounter Care Teams Insurance Follow Up Representative Relationship Specialty Start Date End Date Jayna Velasquez MD [facility] [address] [place] [address] PCP - General Family Medicine 02/07/16 03/14/16 documented as of this encounter
--- OUTSIDE RECORDS SUMMARY | 2024-03-20 22:09 | XMS_ITS | Encounter Summary ---
Author Organization [facility] [place] [address] Care Team Providers Care Warehouse Handler Name Role Phone Abby Guaman APRN Primary Care Provider [phone] Encounter Details Date Type Department Care Team (Late st Contact Info) Description 05/09/2016 11:30 AM EDT Office Visit [facility] [place] [address] [place] [address] Grisel Causey, GRINDER OPERATOR SURFACE TOOL [facility] PHYSICAL MEDICINE & [place] [address] Suzy-Danlos syndrome type III; Fibromyalgia; Rheumatoid arthritis [...] Progress Notes * Grisel Causey, ALIE - 05/09/2016 11:30 AM EDT Aquatic Physical Therapy Treatment Note Total Treatment Time: 45 min Time Coded Treatment: 15 min Insurance: Payor: [place] / Plan[place] PRIMARY CARE [place] / Product Type: *No Product type* / Pool visit # 11 Follow up visit for patient with 1. Suzy-Danlos syndrome type III 2. Fibromyalgia 3. Rheumatoid arthritis involving multiple sites, unspecified rheumatoid factor presence S: Pt reports neck sx when her shoulders are hiking up, reduce when she relaxes them down. O: Aquatic Therex, individualized exercise program in a group settin.5# ankle weights except when using floats cues for core and scap engagement/stabilizations and on 1/2->3/4 range with all therex to work stability vs flexibility ankle floats for hip/core stab: hip 3 way with UE assist at railing as needed only walking forward, retro, lateral working mechanics and posture suspended by noodle in deep water: cross country skiing hip abd/add shoulder rolls, retractions semi squat position for core and scap stab: shld AROM and resisted with wrist fins: flex/ext, abd/add, horiz abd/add, IR/ER A: Patient still needs some UE assist at railing during SLS hip stab training exercises. P: Cont per PT POC and goals. Treatment and note completed by Grisel Causey PTA documented in this encounter Plan of Treatment Upcoming Encounters Date Type Department Care Team (Late st Contact Info) Description 04/07/2024 3:20 PM EDT Office Visit Dermatology at [address] [place] [address] Dayanna Ramírez MD [facility] [address] [place] [address] documented as of this encounter Visit Diagnoses Diagnosis Suzy-Danlos syndrome type III Suzy-Danlos syndrome Fibromyalgia Mylagia and myositis, unspecified Rheumatoid arthritis involving multiple sites, unspecified rheumatoid factor presence documented in this encounter Care Teams Warehouse Handler Relationship Specialty Start Date End Date Abby Guaman APRN [facility] [place] [address] PCP - General Family Medicine 03/15/16 06/19/17 documented as of this encounter
--- OUTSIDE RECORDS SUMMARY | 2024-03-20 22:09 | XMS_ITS | Encounter Summary ---
Author Organization [facility] [place] [address] Care Team Providers Care General Surgery Physician Assistant Name Role Phone Unavailable Primary Care Provider Unavailabl e Encounter Details Date Type Department Care Team (Late st Contact Info) Description 09/14/2015 External [place] [address] Kimberlyn Gipson MD [facility] [place] [address] Social History Tobacco Use Types Packs/Day Years [...] 3:20 PM EDT Office Visit Dermatology at [facility] [address] [place] [address] Dayanna Ramírez MD [facility] [place] [address] documented as of this encounter Procedures Procedure Name Priority Date/Time Associated Diagnosis Comments EMG SCAN Routine 09/13/2015 documented in this encounter Results * Scan Doc: EMG (09/13/2015) Kimberlyn Gipson MD MED[facility] MGR SCAN EXT ORDR/RSLT documented in this encounter Visit Diagnoses Not on filedocumented in this encounter
--- OUTSIDE RECORDS SUMMARY | 2024-03-20 22:09 | XMS_ITS | Encounter Summary ---
Author Organization [facility] [place] [address] Care Team Providers Care Loan Adviser Name Role Phone Abby Guaman APRN Primary Care Provider [phone] Encounter Details Date Type Department Care Team (Late st Contact Info) Description 04/18/2016 12:15 PM EDT Office Visit [facility] [place] [address] [place] [address] Grisel Causey, CYTOTECHNOLOGIST/CYTOLOGY SUPERVISOR [facility] PHYSICAL MEDICINE & [place] [address] Suzy-Danlos syndrome type III; Fibromyalgia Social History Tobacco Use Types Packs/Day Years [...] this encounter Progress Notes * Grisel Causey, CYTOTECHNOLOGIST/CYTOLOGY SUPERVISOR - 04/18/2016 12:15 PM EDT Aquatic Physical Therapy Treatment Note Total Treatment Time: 45 min Time Coded Treatment: 15 min Insurance: Pay[place] / [place] PRIMARY [place] / Product Type: *No Product type* / Pool visit # 9 Follow up visit for patient with 1. Suzy-Danlos syndrome type III 2. Fibromyalgia S: Pt reports she can feel the difference having appointments only once a week vs twice, not able to tolerate as much exercise when apts more spread out. O: Aquatic Therex, individualized exercise program in a group settin.5# ankle weights except when using floats cues for core and scap engagement/stabilizations and on 1/2->3/4 range with all therex to work stability vs flexibility ankle floats for hip/core stab: hip 3 way with UE assist at railing as needed walking forward, retro, lateral working mechanics and posture (small wrist float resistance) suspended by noodle in deep water: cross country skiing hip abd/add shoulder rolls, retractions semi squat position for core and scap stab: shld AROM and resisted with small wrist floats: flex/ext, abd/add, horiz abd/add, IR/ER A: Patient not able to tolerate progression today, fatigued. P: Cont per PT POC and goals. Treatment and note completed by Grisel Causey PTA documented in this encounter Plan of Treatment Upcoming Encounters Date Type Department Care Team (Late st Contact Info) Description 04/07/2024 3:20 PM EDT Office Visit Dermatology at [address] [place] [address] Dayanna Ramírez MD [facility] [address] [place] [address] documented as of this encounter Visit Diagnoses Diagnosis Suzy-Danlos syndrome type III Suzy-Danlos syndrome Fibromyalgia Mylagia and myositis, unspecified documented in this encounter Care Teams Loan Adviser Relationship Specialty Start Date End Date Abby Guaman APRN [facility] [place] [address] PCP - General Family Medicine 03/15/16 06/19/17 documented as of this encounter
--- OUTSIDE RECORDS SUMMARY | 2024-03-20 22:09 | XMS_ITS | Encounter Summary ---
Author Organization [facility] Address [facility] [place] [address] Care Team Providers Care Soaping Department Supervisor Name Role Phone Unavailable Primary Care Provider Unavailabl e Encounter Details Date Type Department Care Team (Latest Contact Info) Description 09/22/2015 12:00 PM EST - 09/22/2015 11:59 PM EST Hospital Encounter Non-[place] [phone] Luis Hackett MD [facility] GENERAL [place] [address] Edema of lower extremity, unspecified laterality; EDS (Suzy-Danlos syndrome) Discharge Disposition: Home Social History Tobacco Use [...] Sig Dispensed Refills Start Date End Date hydrochlorothiazide (MICROZIDE) 12.5 mg CapsuleIndications:Jordy a of lower extremity, unspecified laterality Take 1 capsule by mouth daily. 60 capsule 1 09/16/2015 01/28/2016 naproxen sodium (ANAPROX) 550 mg TabletIndications:NEENA (juvenile idiopathic arthritis) Take 1 tablet by mouth 2 times daily as needed. 60 tablet 11 03/06/2015 10/18/2016 albuterol (PROVENTIL HFA;VENTOLIN HFA;PROAIR) 90 mcg/actuation HFA Aerosol Inhaler Inhale 2 puffs into the lungs every 4 hours as needed for Wheezing. Use with spacer 1 Inhaler 1 01/11/2015 04/18/2016 documented as of this encounter Plan of Treatment Upcoming Encounters Date Type Department Care Team (Late st Contact Info) Description 04/07/2024 3:20 PM EDT Office Visit Dermatology at [facility] [address] [place] [address] Dayanna Ramírez MD [facility] DR [place] [address] documented as of this encounter Procedures Procedure Name Priority Date/Time Associated Diagnosis Comments ECHO COMPLETE Routine 09/22/2015 1:04 PM EST Edema of lower extremity, unspecified laterality EDS (Suzy-Danlos syndrome) documented in this encounter Results * ECHO COMPLETE (09/22/2015 1:04 PM EST) EF 60 HEARTLAB SYSTEM Anatomical Region Laterality Modality Other 09/22/2015 Narrative 09/22/2015 1:32 PM EST Procedure: ?Transthoracic Echocardiogram Patient: ?MOISES UGALDE R ?(Age): 1970(45y) Med Rec#: ? [id number] ?Sex: ?F ? Site Loc: ? [facility] ?Ht / Wt: ??154.94(cm)/62(k Pt. Loc: ?Echo Lab ?BSA: ?1.61 Study Date: ?? 09/22/2015 ?Pt. Type: Outpatient Tape: ? Referring: Luis Hackett Reading: Dre Martin ([id number]) Powder Shoveler: Manda Tobar Diagnosis: *ICD-10-PCS Localized edema (R60.0) *ICD-10-PCS Suzy-Danlos syndrome (Q79.6) CPT Codes: *Echo Full (12112) *Spectral Doppler (06120) *Color Doppler (79434) BP: ? 123/73 SUMMARY: 1. Left ventricular chamber size, wall thickness, global and segmental systolic function are within normal limits. Ejection fraction is estimated to be 60%. There are no left ventricular segmental wall motion abnormalities. Doppler assessment is consistent with normal left sided filling pressure. 2. Right ventricular chamber size, wall thickness, and systolic function are within normal limits. Pulmonary artery pressures could not be assessed due to inadequate tricuspid regurgitation jet. 3. The aortic root is normal in size. The ascending aorta is normal in size. 4. There is no significant valvular disease. 5. See remainder of report for additional findings. ??No prior echo for comparison. Findings ? : Left Ventricle: ? Left ventricular chamber size, wall thickness, global and segmental systolic function are within normal limits. Ejection fraction is estimated to be 60%. ?There are no left ventricular segmental wall motion abnormalities. ?Doppler assessment is consistent with normal left sided filling pressure. Left Atrium: ? The left atrium is normal in size. 17 ml/m2 by volume index. Right Ventricle: ? Right ventricular chamber size, wall thickness, and systolic function are within normal limits. ?Pulmonary artery hypertension could not be assessed due to inadequate tricuspid regurgitation jet. ?The estimated right atrial pressure is 8 mmHg. Right Atrium: ? The right atrium appears normal. Aortic Valve: ? The aortic valve is trileaflet. The leaflets are thin with normal excursion. There is no aortic stenosis or regurgitation present. Mitral Valve: ? The mitral valve appears normal in structure and function. ?There is trace mitral regurgitation present. Tricuspid Valve: ? The tricuspid valve appears normal in structure and function. ?There is trace tricuspid regurgitation present. Pulmonic Valve: ? The pulmonic valve appears normal in structure and function. Pericardium: ? The pericardium appears normal and there is no evidence of a pericardial effusion. Aorta: ? The aortic root is normal in size. ?The ascending aorta is normal in size. ?The aortic arch is normal in size. ?The descending aorta is normal in size. Pulmonary Artery: ? The main pulmonary artery appears normal. Venous: ? The inferior vena cava appears normal in size. ?There is less than 50% respiratory change in the inferior vena cava dimension consistent with elevated right atrial pressure. Misc: ? See remainder of report for additional findings. ?Two-dimensional echo, spectral Doppler and color Doppler performed. Chambers 2D ?Value ?Units (Range) ? IVSd (2D) ? 0.8 ?cm ? LVPWd (2D) ?0.9 ?cm ? IVS:LVPW ratio (2D) 0.9 ?ratio ? LVIDd (2D) ?3.8 ?cm ? LVIDs (2D) ?2.3 ?cm ? LVIDd (2D) index ?2.4 ?cm/m2 ? LVIDs (2D) index ?1.5 ?cm/m2 ? LV FS (2D) ?38.8 ? % ? EF Teichholz (2D) ?? 69.9 ? % ? Ao root diameter (2D2.8 ?cm (2.1 - 3.6) ? Ascending Ao ?2.9 ?cm (2 - 3.5) ? Aortic arch ? 3.1 ?cm ? Descending Ao ? 1.7 ?cm ? Abd Ao ?1.5 ?cm ? Volumes/Mass ?Value ?Units (Range) ? LA Area 4 CH ?11 ? cm2 (<21) ? LA ESV BP (A/L) inde16.5 ? ml/m2 ? RA AREA 4CH ? 12 ? cm2 ? LA ESV SP 4CH (MOD) 22.8 ? ml ? LA ESV SP 2CH (MOD) 26.3 ? ml ? LV mass (2D) ?92.1 ? g ? LV mass (2D) index ??57.2 ? g/m2 ? Diastolic/Systolic Function ?Value ?Units (Range) ? MV E-wave Vmax ?1.1 ?m/sec ? MV deceleration [id number] ?msec ? MV A-wave Vmax ?0.6 ?m/sec ? MV E:A ratio ?1.9 ?ratio ? LV septal e' Vmax ?? 0.1 ?m/sec ? LV E:e' septal ratio7.9 ?ratio ? Tricuspid Valve ?Value ?Units (Range) ? RAP ? 8 ?mmHg ? Measurement Trending Name ? 09/22/2015 ? LVIDd (2D) ? 3.83 LVIDs (2D) ? 2.34 Wall Motion: Segment Name ?Rest ? Base-Anteroseptal ?? Normal ? Base-Anterior ? Normal ? Base-Anterolateral ??Normal ? Base-Posterolateral Normal ? Base-Inferior ? Normal ? Base-Inferoseptal ?? Normal ? Mid-Anteroseptal ?Normal ? Mid-Anterior ?Normal ? Mid-Anterolateral ?? Normal ? Mid-Posterolateral ??Normal ? Mid-Inferior ?Normal ? Mid-Inferoseptal ?Normal ? [place]-Septal ? Normal ? [place]-Anterior ? Normal ? [place]-Lateral ?Normal ? [place]-Inferior ? Normal ? [place]-Tip ?Normal ? This report has been electronically signed by: Dre Martin MD ? 09/22/2015 13:31:27 Images reviewed and interpretation verified [facility] Cardiac Ultrasound Laboratory Procedure Note Dre Martin MD - 09/22/2015 Procedure: Transthoracic Echocardiogram Patient: MOISES Nava DOB(Age): 1970(45y) Med Rec#: [id number] Sex: F Site Loc: [facility] Ht / Wt: 154.94(cm)/62(k Pt. Loc: Echo Lab BSA: 1.61 Study Date: 09/22/2015 Pt. Type: Outpatient Tape: Referring: Luis Hackett Reading: Dre Martin ([id number]) Powder Shoveler: Manda Tobar Diagnosis: *ICD-10-PCS Localized edema (R60.0) *ICD-10-PCS Suzy-Danlos syndrome (Q79.6) CPT Codes: *Echo Full (72335) *Spectral Doppler (38350) *Color Doppler (02987) BP: 123/73 SUMMARY: 1. Left ventricular chamber size, wall thickness, global and segmental systolic function are within normal limits. Ejection fraction is estimated to be 60%. There are no left ventricular segmental wall motion abnormalities. Doppler assessment is consistent with normal left sided filling pressure. 2. Right ventricular chamber size, wall thickness, and systolic function are within normal limits. Pulmonary artery pressures could not be assessed due to inadequate tricuspid regurgitation jet. 3. The aortic root is normal in size. The ascending aorta is normal in size. 4. There is no significant valvular disease. 5. See remainder of report for additional findings. No prior echo for comparison. Findings : Left Ventricle: Left ventricular chamber size, wall thickness, global and segmental systolic function are within normal limits. Ejection fraction is estimated to be 60%. There are no left ventricular segmental wall motion abnormalities. Doppler assessment is consistent with normal left sided filling pressure. Left Atrium: The left atrium is normal in size. 17 ml/m2 by volume index. Right Ventricle: Right ventricular chamber size, wall thickness, and systolic function are within normal limits. Pulmonary artery hypertension could not be assessed due to inadequate tricuspid regurgitation jet. The estimated right atrial pressure is 8 mmHg. Right Atrium: The right atrium appears normal. Aortic Valve: The aortic valve is trileaflet. The leaflets are thin with normal excursion. There is no aortic stenosis or regurgitation present. Mitral Valve: The mitral valve appears normal in structure and function. There is trace mitral regurgitation present. Tricuspid Valve: The tricuspid valve appears normal in structure and function. There is trace tricuspid regurgitation present. Pulmonic Valve: The pulmonic valve appears normal in structure and function. Pericardium: The pericardium appears normal and there is no evidence of a pericardial effusion. Aorta: The aortic root is normal in size. The ascending aorta is normal in size. The aortic arch is normal in size. The descending aorta is normal in size. Pulmonary Artery: The main pulmonary artery appears normal. Venous: The inferior vena cava appears normal in size. There is less than 50% respiratory change in the inferior vena cava dimension consistent with elevated right atrial pressure. Misc: See remainder of report for additional findings. Two-dimensional echo, spectral Doppler and color Doppler performed. Chambers 2D Value Units (Range) IVSd (2D) 0.8 cm LVPWd (2D) 0.9 cm IVS:LVPW ratio (2D) 0.9 ratio LVIDd (2D) 3.8 cm LVIDs (2D) 2.3 cm LVIDd (2D) index 2.4 cm/m2 LVIDs (2D) index 1.5 cm/m2 LV FS (2D) 38.8 % EF Teichholz (2D) 69.9 % Ao root diameter (2D2.8 cm (2.1 - 3.6) Ascending Ao 2.9 cm (2 - 3.5) Aortic arch 3.1 cm Descending Ao 1.7 cm Abd Ao 1.5 cm Volumes/Mass Value Units (Range) LA Area 4 CH 11 cm2 (<21) LA ESV BP (A/L) inde16.5 ml/m2 RA AREA 4CH 12 cm2 LA ESV SP 4CH (MOD) 22.8 ml LA ESV SP 2CH (MOD) 26.3 ml LV mass (2D) 92.1 g LV mass (2D) index 57.2 g/m2 Diastolic/Systolic Function Value Units (Range) MV E-wave Vmax 1.1 m/sec MV deceleration [id number] msec MV A-wave Vmax 0.6 m/sec MV E:A ratio 1.9 ratio LV septal e' Vmax 0.1 m/sec LV E:e' septal ratio7.9 ratio Tricuspid Valve Value Units (Range) RAP 8 mmHg Measurement Trending Name 09/22/2015 LVIDd (2D) 3.83 LVIDs (2D) 2.34 Wall Motion: Segment Name Rest Base-Anteroseptal Normal Base-Anterior Normal Base-Anterolateral Normal Base-Posterolateral Normal Base-Inferior Normal Base-Inferoseptal Normal Mid-Anteroseptal Normal Mid-Anterior Normal Mid-Anterolateral Normal Mid-Posterolateral Normal Mid-Inferior Normal Mid-Inferoseptal Normal [place]-Septal Normal [place]-Anterior Normal [place]-Lateral Normal [place]-Inferior Normal [place]-Tip Normal This report has been electronically signed by: Dre Martin MD 09/22/2015 13:31:27 Images reviewed and interpretation verified [facility] Cardiac Ultrasound Laboratory Luis Hackett MD ECHO ORDERABLES documented in this encounter Visit Diagnoses Diagnosis Edema of lower extremity, unspecified laterality EDS (Suzy-Danlos syndrome) Suzy-Danlos syndrome documented in this encounter
--- OUTSIDE RECORDS SUMMARY | 2024-03-20 22:09 | XMS_ITS | Encounter Summary ---
Author Organization [place] [address] Care Team Providers Care Resp Therapist Name Role Phone Abby Guaman APRN Primary Care Provider [phone] Reason for Visit * Reason Onset Date Comments Medication Refill 01/28/2016 Encounter Details Date Type Department Care Team (Late st Contact Info) Description 01/28/2016 Refill [place] [phone] Alem Mendoza Edema of lower extremity, unspecified laterality Social History Tobacco Use Types [...] encounter Miscellaneous Notes * Telephone Encounter - Arely Jackson - 01/28/2016 2:12 PM EDT Patient calling in regards to the medication refill. Patient has been out for a couple days and hasa lot of fluid in her knees and ankles. Would like this RAMYA today. Please expedite. documented in this encounter Plan of Treatment Upcoming Encounters Date Type Department Care Team (Late st Contact Info) Description 04/07/2024 3:20 PM EDT Office Visit Dermatology at [facility] [address] [place] [phone] Dayanna Ramírez MD [facility] [place] [address] documented as of this encounter Visit Diagnoses Diagnosis Edema of lower extremity, unspecified laterality documented in this encounter Care Teams Resp Therapist Relationship Specialty Start Date End Date Abby Guaman [place] [address] PCP - General Family Medicine 12/29/15 02/06/16 documented as of this encounter
--- OUTSIDE RECORDS SUMMARY | 2024-03-20 22:09 | XMS_ITS | Encounter Summary ---
Author Organization [facility] [place] [address] Care Team Providers Care Coastal And Estuary Specialist Name Role Phone Abby Guaman APRN Primary Care Provider [phone] Encounter Details Date Type Department Care Team (Late st Contact Info) Description 05/16/2016 11:30 AM EDT Office Visit [facility] [place] [address] [place] [address] Grisel Causey, QUILL WORKER [facility] PHYSICAL MEDICINE & [place] [address] Suzy-Danlos syndrome type III; Fibromyalgia; Rheumatoid arthritis [...] Progress Notes * Grisel Causey, ALIE - 05/16/2016 11:30 AM EDT Aquatic Physical Therapy Treatment Note Total Treatment Time: 60 min Time Coded Treatment: 15 min Insurance: Payor: [place] / Plan: [place] PRIMARY CARE [place] / Product Type: *No Product type* / Pool visit # 12 Follow up visit for patient with 1. Suzy-Danlos syndrome type III 2. Fibromyalgia 3. Rheumatoid arthritis involving multiple sites, unspecified rheumatoid factor presence S: Pt reports she feels like she has warmth back in her arm. 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 Patient notes she still has significant sx while trying to sleep. O: Aquatic Therex, individualized exercise program in [...] stab: shld AROM and resisted with wrist float: flex/ext, abd/add, horiz abd/add, IR/ER large noodle leg press with no UE assist for balance SL press with balance board with back to wall DL press holding railing for balance A: Patient felt less neck/shld/arm sx today with increased reps and speed of therex and added exercises. P: Cont per PT POC and goals. Treatment and note completed by Grisel Causey PTA documented in this encounter Plan of Treatment Upcoming Encounters Date Type Department Care Team (Late st Contact Info) Description 04/07/2024 3:20 PM EDT Office Visit Dermatology at [address] [place] [address] Dayanna Ramírez MD [facility] [address] [place] [address] documented as of this encounter Visit Diagnoses Diagnosis Suzy-Danlos syndrome type III Suzy-Danlos syndrome Fibromyalgia Mylagia and myositis, unspecified Rheumatoid arthritis involving multiple sites, unspecified rheumatoid factor presence documented in this encounter Care Teams Coastal And Estuary Specialist Relationship Specialty Start Date End Date Abby Guaman APRN [facility] [place] [address] PCP - General Family Medicine 03/15/16 06/19/17 documented as of this encounter
--- OUTSIDE RECORDS SUMMARY | 2024-03-20 22:09 | XMS_ITS | Encounter Summary ---
Author Organization [facility] [place] [address] Care Team Providers Care Biomedical Specialist Name Role Phone Abby Guaman APRN Primary Care Provider [phone] Reason for Visit * Reason Comments Follow-up anxiety Encounter Details Date Type Department Care Team (Late st Contact Info) Description 04/18/2016 10:00 AM EDT [facility] [address] [place] [address] Abby Guaman [place] [address] Anxiety; Hot flashes; Mild intermittent asthma without complication; Bilateral leg edema Social History Tobacco Use Types Packs/Day Years [...] Sign Reading Time Taken Comments Blood Pressure 122/78 04/18/2016 10:17 AM EDT Pulse 68 04/18/2016 10:17 AM EDT Temperature - - Respiratory Rate - - Oxygen Saturation 99% 04/18/2016 10:17 AM EDT Inhaled Oxygen Concentration - - Weight 65.9 kg (145 lb 3.2 oz) 04/18/2016 10:17 AM EDT Height 154.9 cm (5' 1) 04/18/2016 10:17 AM EDT Body Mass Index 27.44 04/18/2016 10:17 AM EDT documented in this encounter Patient Instructions * Patient Instructions* Abby Guaman Desmond, VAT SKIMMER - 04/18/2016 10:00 AM EDT Increase your Sertraline to 100mg daily (2 of the 50mg capsules) If you feel no improvement in 2 weeks you may increase to 150mg (3 capsules). Try to stay on this dosing for 4 weeks. Let's check in 8 weeks. Try evening primrose oil 500mg once nightly for hot flashes. May increase to 2 capsules nightly if needed but make sure this isn't triggering headaches or poor sleep. Sleep: let's have you try 25mg-50mg of Benadryl for sleep. Call me if you've tried this and really are having a hard time with sleep. Alternative (melatonin 1mg nightly- max dose of 5mg nightly) Sleep Hygiene Tips Establish a regular time for going to bed and getting up in the morning. Stick to this schedule even on weekends and during vacations. Use the bed for sleep and sexual relations only, not for reading, watching television, working on computer or working. Excessive time in bed disrupts sleep. Avoid naps, especially in the evening. Exercise before dinner. A low point in energy occurs a few hours after exercise; sleep will then come more easily. Exercising close to bedtime, however, may increase alertness. Take a hot bath about 1.5-2 hours before bedtime. This alters the body's core temperature rhythm and helps people fall asleep more easily and more continuously. (taking a bath shortly before bed increases alertness.) Do something relaxing in the 30 minutes before bedtime. Reading, meditation, and a leisurely walk are all appropriate activities. Keep the bedroom relatively cool and well ventilated. Do not look at the clock. Obsessing over time will just make it more difficult to sleep. Eat light meals and schedule dinner 4-5 hours before bedtime. A light snack before bedtime can helpsleep, but a large meal may have the opposite effect. Spend a half hour in the sun each day. The best time is early in the day. (Take precautions againstoverexposure to sunlight by wearing protective clothing and sunscreen.) Avoid fluids just before bedtime so that sleep is not disturbed by the need to urinate. Avoid caffeine in the hours before sleep. (in fact caffeine lasts in the body a prolonged time - 1 cup this morning takes 30 hours before 95% of it is cleared from the system.) If one is still awake after 15-20 minutes, go into another room, read or do a quiet activity using dim lighting until feeling very sleepy. (Don't watch television, use back lit computer screens, or use bright lights.) If distracted by a sleeping bed partner, moving to the couch or a spare bed for a couple of nights might be helpful. documented in this encounter Progress Notes * Abby Guaman APRN - 04/18/2016 10:00 AM EDT Yumiko Chang is a 46 y.o. female here today for Chief Complaint Patient presents with ??? Follow-up anxiety HPI Anxiety GAD7-14 today. School is back in session.Stress has come down some but is still dealing with a lot of daily responsibilities and stressors with kids. Started with 50mg Sertraline 03/14/16 at night. Just started taking in the morning due to nightmares for the first 2 weeks. Wheels spin 05/03 usually. The sertraline helps. In general she can't sleepwell.Wakes frequently. This has been her pattern her whole life. However, feels that the sertraline triggered this a bit more. Now taking 1.5 pills (75mg daily in a.m.). If doesn't take it regularly she will notice her wheelswill spin. Notices that her body is now used to the 75mg because she doesn't feel the calming effect anymore. EDS type III/Fibromyalgia/chronic pains Thinks that the sertraline is making her pain worse in her sacral area and coccyx. Feels that hercoccyx is protruding out. Feels at night time she has it the worst. Has night sweats/jhot flasheswith menopause as well. No period for a year Goes to sleep around 1-2 am. Gets average of 3-4 hours. Has tried meds for sleep in the past and has not liked the way they made her feel. Tried ambien and a bunch of different ones like diazepam. Going to PT for neck pain and also for hip and shoulder pains. Doing aquatic therapy. Can't get comfortable when she sleeps Seeing [facility] this week for her NEENA/RA. GERD Doing well. Taking omeprazole 20mg daily. Notices she can eat spicy foods now without regretting it. Discussed that this is intended to be a short term treatment and she will likely need to alter her intake if she wants to be off of medication. Asthma- Mild intermittent Uses her albuterol maybe twice per month. Says that she does much better on Xopenex as the albuterol makes her throat dry and her heart race. PFTs done one month ago and were normal. Says that she really usually only needs the inhaler in the gamb[place]. Hot flashes Has never tried anything for this. Does not want to use hormones. Wants to try alternative meds. Would like some suggestions. Review of Systems Respiratory: Negative for cough, chest tightness, shortness of breath and wheezing. Gastrointestinal: Negative for abdominal pain, blood in stool, nausea and vomiting. Musculoskeletal: Positive for back pain, myalgias and neck pain. Negative for gait problem. Skin: Negative for rash. Neurological: Positive for headaches (not new. not daily. Hasn't had them in a while). Negative fordizziness, syncope and light-headedness. Psychiatric/Behavioral: Positive for sleep disturbance. The patient is nervous/anxious. See HPI Objective Vitals: 04/18/16 1017 BP: 122/78 Pulse: 68 Wt Readings from Last 3 Encounters: 04/18/16 65.9 kg (145 lb 3.2 oz) 03/14/16 64.2 kg (141 lb 9.6 oz) 02/11/16 64.7 kg (142 lb 9.6 oz) BP Readings from Last 3 Encounters: 04/18/16 122/78 03/14/16 104/72 02/11/16 118/72 GAD7 BELKIS-7 Patient Reported Responses 04/18/2016 Nervous, anxious (Clinic) Several days Unable to stop worrying (Clinic) Several days Worrying about different things (Clinic) Nearly every day Trouble relaxing (Clinic) Nearly every day Restless (Clinic) Nearly every day Easily annoyed, irritable (Clinic) Nearly every day Afraid something awful will happen (Clinic) More than half the days BELKIS-7 Score (Clinic) 16 Physical Exam Constitutional: She appears well-developed and well-nourished. HENT: Head: Normocephalic and atraumatic. Eyes: Pupils are equal, round, and reactive to light. Neck: Neck supple. Cardiovascular: Normal rate, regular rhythm, normal heart sounds and intact distal pulses. Pulmonary/Chest: Effort normal and breath sounds normal. No respiratory distress. She has no wheezes. Skin: Skin is warm and dry. No rash noted. Psychiatric: Her speech is normal and behavior is normal. Judgment and thought content normal. Her mood appears anxious. Cognition and memory are normal. Nursing note and vitals reviewed. Assessment/Plan: 1. Anxiety Increase to 100mg daily. Stay at this dosing for at least 2 weeks. If no improvement in symptoms may increase to 150mg (3 tablets). Stay on 150mg for 4 weeks at minimum. Call me if any issues. Follow up in 8 weeks. Sooner if concerns. - sertraline (ZOLOFT) 50 mg Tablet; Take 1 tablet by mouth 2 times daily. Dispense: 90 tablet; Refill: 1 2. Hot flashes Let's have you try the evening primrose oil. May increase to 2 capsules nightly if no side effects and not effective at 500mg. - Evening Gibson Oil (EVENING PRIMROSE) 500 mg Capsule; Take 1 capsule by mouth daily. Dispense: 90 capsule; Refill: 0 3. Mild intermittent asthma without complication Let me know if you are needing to use this more than twice weekly. Normal PFTs. - levalbuterol (XOPENEX HFA) 45 mcg/actuation HFA Aerosol Inhaler; Inhale 1-2 puffs into the lungs every 4 hours as needed. Dispense: 1 Inhaler; Refill: 3 4. Bilateral leg edema Refills given. Will recheck metabolic panel in 3 months. No longer taking HCTZ. - furosemide (LASIX) 20 mg Tablet; Take one tablet (20mg) daily in the morning Dispense: 30 tablet;Refill: 2 documented in this encounter Plan of Treatment Upcoming Encounters Date Type Department Care Team (Late st Contact Info) Description 04/07/2024 3:20 PM EDT Office [facility] [address] [place] [address] Dayanna Ramírez MD [facility] [place] [address] documented as of this encounter Visit Diagnoses Diagnosis Anxiety Anxiety state, unspecified Hot flashes Symptomatic menopausal or female climacteric states Mild intermittent asthma without complication Unspecified asthma Bilateral leg edema Edema documented in this encounter Care Teams Biomedical Specialist Relationship Specialty Start Date End Date Abby Guaman, [place] [address] PCP - General Family Medicine 03/15/16 06/19/17 documented as of this encounter
--- OUTSIDE RECORDS SUMMARY | 2024-03-20 22:09 | XMS_ITS | Encounter Summary ---
[facility] [place] [address] Care Team Providers Care Cloth Designer Name Role Phone Jayna Velasquez MD Primary Care Provider [phone] Encounter Details Date Type Department Care Team (Latest Contact Info) Description 03/14/2016 10:25 AM EDT - 03/14/2016 11:59 PM EDT Hospital [place] [address] SOB (shortness of breath) Discharge Disposition: Home Social History Tobacco Use [...] Sig Dispensed Refills Start Date End Date sertraline (ZOLOFT) 50 mg Tablet Take 1 tablet by mouth daily. 90 tablet 3 03/14/2016 04/18/2016 omeprazole (PRILOSEC) 20 mg Capsule, Delayed Release(E.C.)Indicatio ns:Gastroesophageal reflux disease, esophagitis presence not specified Take 1 capsule by mouth daily. 90 capsule 1 02/11/2016 09/11/2016 hydrochlorothiazide (MICROZIDE) 12.5 mg CapsuleIndications:Aldo ateral leg edema Take one capsule (12.5mg) by mouth in late afternoon 30 capsule 5 02/11/2016 04/18/2016 furosemide (LASIX) 20 mg TabletIndications:Bila teral leg edema Take one tablet (20mg) daily in the morning 30 tablet 2 02/11/2016 04/18/2016 naproxen sodium (ANAPROX) 550 mg TabletIndications:NEENA (juvenile idiopathic arthritis) Take 1 tablet by mouth 2 times daily as needed. 60 tablet 11 03/06/2015 10/18/2016 albuterol (PROVENTIL HFA;VENTOLIN HFA;PROAIR) 90 mcg/actuation HFA Aerosol Inhaler Inhale 2 puffs into the lungs every 4 hours as needed for Wheezing. Use with spacer 1 Inhaler 1 01/11/2015 04/18/2016 documented as of this encounter Procedure Notes * Anival Duenas MD - 03/14/2016 2:28 PM EDTAssociated Order(s): PULMONARY FUNCTION TEST Forced vital capacity is normal. FEV1 is normal. The ratio is normal. There is no significant response to bronchodilation. Normal spirometry without significant response to bronchodilation. documented in this encounter Plan of Treatment Upcoming Encounters Date Type Department Care Team (Late st Contact Info) Description 04/07/2024 3:20 PM EDT Office Visit Dermatology at [address] [place] [address] Dayanna Ramírez MD [facility] [address] [place] [address] documented as of this encounter Procedures Procedure Name Priority Date/Time Associated Diagnosis Comments COMMON PULMONARY FUNCTION TEST Routine 03/14/2016 2:28 PM EDT SOB (shortness of breath) documented in this encounter Results * Pulmonary Function Testing (03/14/2016 2:28 PM EDT) Narrative Anival Duenas MD - 03/14/2016 2:28 PM EDT Anival Duenas MD ? 03/14/2016 ??2:28 PM Forced vital capacity is normal. FEV1 is normal. The ratio is normal. There is no significant response to bronchodilation. Normal spirometry without significant response to bronchodilation. Anya Portillo MD PFT ORDERABLES documented in this encounter Visit Diagnoses Diagnosis SOB (shortness of breath) Shortness of breath documented in this encounter Care Teams Cloth Designer Relationship Specialty Start Date End Date Jayna Velasquez MD [facility] [address] [place] [address] PCP - General Family Medicine 02/07/16 03/14/16 documented as of this encounter
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
--- OUTSIDE RECORDS SUMMARY | 2024-03-20 22:09 | XMS_ITS | Encounter Summary ---
[place] [address] Care Team Providers Care Printmaker Name Role Phone Abby Guaman APRN Primary Care Provider [phone] Reason for Visit * Reason Onset Date Comments Prior Authorization 05/23/2016 Sertraline Encounter Details Date Type Department Care Team (Late st Contact Info) Description 05/23/2016 Telephone Family Medicine at [facility] [address] [place] [address] Ximena Lucas Prior Authorization (Sertraline) Social History Tobacco Use Types Packs/Day Years [...] encounter Miscellaneous Notes * Telephone Encounter - Eric Marquis MA - 05/25/2016 10:27 AM EDT Medication Prior Authorization for Primary [place] [address] Denied: X Case/Reference #: [id number] Additional Information from Insurance carrier: Per insurance - The Sertraline 100MG tablet is preferred; it is scored and can be split to make 50MG BID dosing. * Telephone Encounter - Eric Marquis MA - 05/23/2016 3:20 PM EDT Medication Prior Authorization for Primary [place] [address] Patient: Yumiko Chang Patient : 1970 Subscriber Insurance: [place] Medicaid Sent via: [employer] Veronica: [id number] Physician: Abby Guaman APRN Return Medication Requested: Sertraline Strength: 50MG Frequency: 1 PO BID Disp.: 90 Refills: 1 Currently taking: Yes If yes, how lon04/2016 - present Diagnosis for this medication: Anxiety ICD-10 code: F41.9 Prior medications trialed in this patient: Medication: Sertraline 50MG 1 PO QD Approx Dates: 03/2016 - 04/2016 Outcome/Adverse Reactions: Treatment failure * Telephone Encounter - Ximena Lucas - 05/23/2016 2:02 PM EDT Medication: sertraline (ZOLOFT) 50 mg Tablet 1 twice a day Insurance Company: [place] Medicaid Phone: Fax: documented in this encounter Plan of Treatment Upcoming Encounters Date Type Department Care Team (Late st Contact Info) Description 04/07/2024 3:20 PM EDT Office Visit Dermatology at [facility] [address] [place] [address] Dayanna Ramírez MD [facility] [place] [address] documented as of this encounter Visit Diagnoses Not on filedocumented in this encounter Care Teams Printmaker Relationship Specialty Start Date End Date Abby Guaman APR[place] [facility] [place] [address] PCP - General Family Medicine 03/15/16 06/19/17 documented as of this encounter
--- OUTSIDE RECORDS SUMMARY | 2024-03-20 22:09 | XMS_ITS | Encounter Summary ---
Author Organization [facility] [place] [address] Care Team Providers Care Customs Guard Name Role Phone Abby Guaman APRN Primary Care Provider [phone] Encounter Details Date Type Department Care Team (Late st Contact Info) Description 12/18/2016 Telephone Internal Medicine at [facility] [address] [place] [address] Lita Patel RN Social History Tobacco Use Types Packs/Day [...] Telephone Encounter - Tram Ac RN - 12/18/2016 1:37 PM EDT Patient identified by full name and . Communicated lab results as advised by Abby Guaman. Patient verbalized understanding of results communicated. * Telephone Encounter - Lita Patel RN - 12/18/2016 10:03 AM EDT Left message for patient to call back in regards to the following message from YOKO Cerna APRN: Notes Recorded by Abby Guaman APRN on 12/18/2016 at 8:56 AM Please call Yumiko and let her know that her Hep C screening was negative and her metabolic panel was normal. Normal liver and kidney function. Normal electrolyte balance. No concerns. Thank you! Abby Guaman APRN, UI APPLICATION DEVELOPER-BC documented in this encounter Plan of Treatment Upcoming Encounters Date Type Department Care Team (Late st Contact Info) Description 04/07/2024 3:20 PM EDT Office Visit Dermatology at [facility] [address] [place] [address] Dayanna Ramírez MD [facility] [place] [address] documented as of this encounter Visit Diagnoses Not on filedocumented in this encounter Care Teams Customs Guard Relationship Specialty Start Date End Date Abby Guaman APRN [facility] [place] [address] PCP - General Family Medicine 03/15/16 06/19/17 documented as of this encounter
--- OUTSIDE RECORDS SUMMARY | 2024-03-20 22:09 | XMS_ITS | Encounter Summary ---
Author Organization [facility] [place] [address] Care Team Providers Care Chemist Enzymes Name Role Phone Jayan Velasquez MD Primary Care Provider [phone] Encounter Details Date Type Department Care Team (Late st Contact Info) Description 03/02/2016 11:30 AM EDT Office Visit [facility] [place] [address] [address] Grisel Causey, BATTERY WRECKER OPERATOR [facility]YS[facility] MEDIC[facility] [place] [address] Suzy-Danlos syndrome type III; Fibromyalgia; Rheumatoid arthritis [...] Progress Notes * Grisel Causey PTA - 03/02/2016 11:30 AM EDT Aquatic Physical Therapy Treatment Note Total Treatment Time: 35 min Time Coded Treatment: 15 min Insurance: Payor: [place] / Plan[place] PRIMARY CARE PL[place] / Product Type: *No Product type* / Pool visit # 2 Follow up visit for patient with 1. Suzy-Danlos syndrome type III 2. Fibromyalgia 3. Rheumatoid arthritis involving multiple sites, unspecified rheumatoid factor presence S: Pt reports she felt fantastic the day of aquatic session, the next day sore in shoulder blade region and hips but not pain. O: Aquatic Therex, individualized exercise program in a group setting: wore ankle weights full session to keep balance steadier instruction in core engagement/stabilizations cued on 1/2->3/4 range with all therex to work stability vs flexibility walking forward, retro, lateral working mechanics and posture SLS: other LE hip 3 way for core training suspended by noodle in deep water: cross country skiing hip abd/add seated at wall: pelvic tilt neutral shld AROM: flex/ext, abd/add, horiz abd/add, IR/ER squats A: Some neck soreness by end of session. P: Cont per PT POC and goals. Treatment and note completed by Grisel Causey PTA documented in this encounter Plan of Treatment Upcoming Encounters Date Type Department Care Team (Late st Contact Info) Description 04/07/2024 3:20 PM EDT Office Visit Dermatology at [facility] [address] [place] [address] Dayanna Ramírez MD [facility] [address] [place] [address] documented as of this encounter Visit Diagnoses Diagnosis Suzy-Danlos syndrome type III Suyz-Danlos syndrome Fibromyalgia Mylagia and myositis, unspecified Rheumatoid arthritis involving multiple sites, unspecified rheumatoid factor presence documented in this encounter Care Teams Chemist Enzymes Relationship Specialty Start Date End Date Jayna Velasquez MD [facility] [place] [address] PCP - General Family Medicine 02/07/16 03/14/16 documented as of this encounter
--- OUTSIDE RECORDS SUMMARY | 2024-03-20 22:09 | XMS_ITS | Encounter Summary ---
Author Organization [facility] [place] [address] Care Team Providers Care Double Cut Off Saw Operator Name Role Phone Abby Guaman APRN Primary Care Provider Reason for Visit * Reason Comments Follow-up Encounter Details Date Type Department Care Team (Late st Contact Info) Description 12/15/2016 2:00 PM EDT Office Visit Family Medicine at [facility] [address] [place] [address] Abby Guaman APRN [facility] [place] [address] Depression, unspecified depression type; Anxiety; Elevated LFTs Social History Tobacco Use Types Packs/Day Years [...] Sign Reading Time Taken Comments Blood Pressure 122/70 12/15/2016 1:42 PM EDT Pulse 64 12/15/2016 1:42 PM EDT Temperature - - Respiratory Rate - - Oxygen Saturation 98% 12/15/2016 1:42 PM EDT Inhaled Oxygen Concentration - - Weight 66.3 kg (146 lb 3.2 oz) 12/15/2016 1:42 P M EDT Height 154.8 cm (5' 0.95) 12/15/2016 1:42 PM ED T Body Mass Index 27.67 12/15/2016 1:42 PM EDT documented in this encounter Progress Notes * Abby Guaman Desmond, ANDROID ARCHITECT - 12/15/2016 2:00 PM EDT Yumiko Chang is a 46 y.o. female here today for Chief Complaint Patient presents with ??? Follow-up HPI Follow up Anxiety/Depression Last office visit was 06/27/16. We had discussed continuation of zoloft at 100mg for 2more weeks atthat time and if no improvement we would have her increase to 150mg daily. [place] she was too depressed on 150mg so went back down to 100mg daily. Has not tried middle ground dose (125mg). Initiation of zoloft was back in March 2016 at low dose (25 to 50). Has a lot going on right now with school and her children needing IEPs but things not happening. Has to deal with the department of education. Is frustrated with the school system. Filing for guardianship of her 16 year old as well as disability for her daughter because she's afraid her daughter might quit school and she has significant learning disability. Youngest son is autistic. Going through issues with her ex not paying child support. Things are completely overwhelming. Has applied to disability for herself as well as her daughter. See problem list below. Having issues with money and can't seem to stay afloat. Is physically and emotionally exhausted- feels that she can't keep things straight because she's sobusy. Is binge eating.is very stressed. Very depressed but not suicidal. Says she is not sleeping well due to stress Is grinding her teeth- getting headaches Going through court with ex - doesn't help with stress. Weight gain Wondering if there's anything she can take for weight loss Doesn't feel she has much time to exercise. Feels that she binge eats and will crave bad foods often. Patient Active Problem List Diagnosis Code ??? PTSD (post-traumatic stress disorder) F43.10 ??? Stress and urge incontinence ??? Breast pain N64.4 ??? NEENA (juvenile idiopathic arthritis) M08.90 ??? Fibrocystic breast N60.19 ??? Hypermobile joints M24.9 ??? H/O sciatica Z86.69 ??? Disc disease, degenerative, cervical M50.30 ??? 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 Abnormal Pap smear of cervix R87.619 ??? Asthma J45.909 ??? Myocardial infarct I21.3 ??? Rheumatoid arthritis M06.9 ??? Neuropathic pain M79.2 ??? Cervicalgia M54.2 ??? 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 Fibromyalgia M79.7 ??? Gastroesophageal reflux K21.9 Review of Systems Constitutional: Positive for appetite change (increased over winter). Cardiovascular: Negative for chest pain and palpitations. Gastrointestinal: Negative for nausea and vomiting. Skin: Negative for rash. Psychiatric/Behavioral: Positive for agitation, decreased concentration, dysphoric mood and sleep disturbance. Negative for confusion and suicidal ideas. The patient is nervous/anxious. The patient is not hyperactive. Objective Vitals: 12/15/16 1342 BP: 122/70 Pulse: 64 Wt Readings from Last 3 Encounters: 12/15/16 66.3 kg (146 lb 3.2 oz) 09/11/16 65.2 kg (143 lb 12.8 oz) 06/29/16 66.2 kg (146 lb) BP Readings from Last 3 Encounters: 12/15/16 122/70 09/11/16 118/68 06/29/16 116/66 PHQ9 Questionnaires Data (Clinic and Pt Entered): Today's value PHQ-9 QUESTIONNAIRE (AMB) 12/15/2016 PHQ - 9 Score (Clinic) - Little interest or pleasure (Clinic) More than half the days Down, depressed, hopeless (Clinic) More than half the days Trouble sleeping (Clinic) Several days Tired or no energy (Clinic) More than half the days Poor appetite or overeating (Clinic) More than half the days Feeling like a failure (Clinic) Several Days Trouble concentrating (Clinic) Several Days Moving or speaking slowly (Clinic) More than half the days Would be better off (Clinic) - How difficult are the problems (Clinic) - GAD7 BELKIS-7 Patient Reported Responses 12/15/2016 Nervous, anxious (Clinic) Nearly every day Unable to stop worrying (Clinic) Nearly every day Worrying about different things (Clinic) Nearly every day Trouble relaxing (Clinic) Nearly every day Restless (Clinic) Nearly every day Easily annoyed, irritable (Clinic) Nearly every day Afraid something awful will happen (Clinic) More than half the days BELKIS-7 Score (Clinic) 20 Patient reported measures: Pain:5 Physical Health:Good Fall: Physical Exam Constitutional: She appears well-developed and well-nourished. Cardiovascular: Normal rate and regular rhythm. Pulmonary/Chest: Effort normal and breath sounds normal. Psychiatric: Her speech is normal and behavior is normal. Judgment and thought content normal. Her mood appears anxious. Cognition and memory are normal. She exhibits a depressed mood. Reports stress, depression and anxiety. See HPI, PHQ9 and GAD7 Nursing note and vitals reviewed. Assessment/Plan: 1. Depression, unspecified depression type Will add wellbutrin 150mg XL in morning to her 100mg zoloft to better treat her depression. May also help with her overeating/binge eating as well as jump start for motivational weight loss. Discussed that if it had any negative side effects or activated anxiety she should call and we willstop. Should call to check in in 2 weeks, sooner if concerns. Discussed secondary plan was to just increase sertraline by 25mg only to 125mg. - buPROPion (WELLBUTRIN XL) 150 mg Tablet Sustained Release 24 hr; Take 1 tablet by mouth every morning. Dispense: 30 tablet; Refill: 3 2. Anxiety As above. Continue zoloft 100mg daily. Sent in a 50mg tab she can keep on hand in the case we increase her sertraline up to 125mg daily. - sertraline (ZOLOFT) 50 mg Tablet; Take 0.5 tablets by mouth daily. Take in addition to 100mg tablet Dispense: 90 tablet; Refill: 1 3. Elevated LFTs Follow up labs for elevated LFTs back in June. - Comprehensive metabolic panel (non-fasting); Future - Hepatitis C Antibody; Future documented in this encounter Plan of Treatment Upcoming Encounters Date Type Department Care Team (Late st Contact Info) Description 04/07/2024 3:20 PM EDT Office Visit Dermatology at [facility] [address] [place] [address] Dayanna Ramírez MD [facility] DR RAYNE DENG-DERMATOLOGY [place] [id number] documented as of this encounter Procedures Procedure Name Priority Date/Time Associated Diagnosis Comments HEPATITIS C ANTIBODY Routine 12/15/2016 2:43 PM EDT Elevated LFTs COMPREHENSIVE METABOLIC PANEL Routine 12/15/2016 2:43 PM EDT Elevated LFTs documented in this encounter Results * Hepatitis C Antibody (12/15/2016 2:43 PM EDT) [facility] Hepatitis C Antibody Negative Negative [facility] Comment: An updated Hepatitis C Ab assay reagent was implemented on 10/25/16. Please contact Dr. Moody at [phone] with any questions or concerns. Blood specimen (specimen) 12/15/2016 2:43 PM EDT 12/15/2016 6:25 PM EDT Narrative Resulting Agency Comment Spec In Lab Abby Guaman APRN CHEMISTRY ORDERABLES [facility] [place] [id number] * Comprehensive metabolic panel (non-fasting) (12/15/2016 2:43 PM EDT) [facility] Glucose 90 65 - 199 mg/dL [facility] Comment:Diabetes: >=200 mg/d L plus symptoms Blood Urea Nitrogen 9 8 - 18 mg/dL [facility] Creatinine 0.92 0.70 - 1.20 mg/dL [facility] Comment: Please note that the pediatric reference intervals supplied above were not validated at [facility]. Results from pediatric patients should be interpreted in conjunction to the patient's age, height and muscle mass. Sodium 141 135 - 145 mmol/L [facility] Potassium 4.2 3.5 - 5.0 mmol/L [facility] Comment: Please note: ??Patients with WBC >100,000 may have falsely elevated Potassium levels. ??For accurate Potassium quantification in these patients send serum separator tube (gold top) for subsequent determinations. ??Contact the Clinical Chemistry Laboratory if there are any questions. Chloride 100 98 - 107 mmol/L [facility] Carbon Dioxide 27 22 - 31 mmol/L [facility] Anion Gap 14 5 - 15 mmol/L [facility] Calcium 10.0 8.5 - 10.5 mg/dL [facility] Protein, Total 7.9 6.1 - 8.0 gm/dL [facility] Albumin 4.8 3.2 - 5.2 gm/dL [facility] Aspartate Aminotransferase 20 0 - 30 unit/L [facility] Alanine Aminotransferase 10 0 - 30 unit/L [facility] Alkaline Phosphatase 95 40 - 104 unit/L [facility] Bilirubin, Total 0.6 0.2 - 1.3 mg/dL [facility] Bilirubin, Direct 0.1 0.0 - 0.3 mg/dL [facility] Est Glomerular Filtration Rate >60 >=60 [facility] Comment: This estimated GFR (eGFR) [...] the following links into your internet browser. http://[email or web address]/DHnkdep [email or web address]/[email or web address] Blood specimen (specimen) 12/15/2016 2:43 PM EDT 12/15/2016 6:25 PM EDT Narrative Resulting Agency Comment Spec In Lab Abby Guaman ANDROID ARCHITECT CHEMISTRY ORDERABLES [facility] [place] [address] documented in this encounter Visit Diagnoses Diagnosis Depression, unspecified depression type Anxiety Anxiety state, unspecified Elevated LFTs Other abnormal blood chemistry documented in this encounter Care Teams Double Cut Off Saw Operator Relationship Specialty Start Date End Date Abby Guaman, ANDROID ARCHITECT [facility] [place] [address] PCP - General Family Medicine 03/15/16 06/19/17 documented as of this encounter
--- OUTSIDE RECORDS SUMMARY | 2024-03-20 22:09 | XMS_ITS | Encounter Summary ---
Author Organization [facility] Address [facility] [place] [address] Care Team Providers Care Core Cutter Name Role Phone Abby Guaman APRN Primary Care Provider [phone] Encounter Details Date Type Department Care Team (Late st Contact Info) Description 04/24/2016 2:00 PM EDT Office Visit Physical Therapy at [facility] [address] [place] [address] Nisha Ward, PT [facility] PHYSICAL MEDICINE & [place] [address] Suzy-Danlos syndrome type III; Cervicalgia Social History Tobacco Use Types Packs/Day Years Used Date Smoking Tobacco: Never Smokeless Tobacco: Never Alcohol Use Standard Drinks/Week Comments No 0 (1 standard drink = 0.6 oz pur e alcohol) rare Sex and Gender Information Value Date Recorded Sex Assigned at Not on file Gender Identity Not on file Sexual Orientation Not on file documented as of this encounter Progress Notes * Nisha Ward, PT - 04/24/2016 2:00 PM EDT Physical Therapy Progress Note Total treatment time:45minutes Total timed code treatment:45minutes Follow up visit for patient with 1. Suzy-Danlos syndrome type III 2. Cervicalgia Current goals: Goals: Short term goals (2 weeks ) 1. Patient to be indep with home exercise program. 2. Pt able to get to pool and begin learing an appropriate program. ? Goals: superintendent marine oil terminal goals (6 weeks ) 1. Pt independent in self directed pool exercise program for strength and endurance. ?? S: Patient reports aquatic program really good. Neck is giving her a lot of trouble. Has a flat pillow. Not sleeping well. Wakes with headahces. Will lie on the right shoulder. Sleeps for 1 hour and wake for an hour. O: Self Care/Home Management ([id number]) 45 min Pt comes with increased neck pain. Hx of RA, Fibro, eds, ?? Cervical traction relieves pain but release incresaed pain. ?? Pt reports feeling of being choked at times. ?? Recommend use of cervical collar for short periods to relieve pressure. ?? Range of motion of the neck is wnl. ?? Segmental mobility of the spine. - c12 hypermobile , c23 hyper mobile. c56 hypermobile. ?? With upper cervical extension pt did have some of her sensations. ?? Pain can be severe at times. Rates currently 7/10 ?? Hard time sleeping. Unable to find comfortable positions ?? Discussed nuetral position of spine. That she needs to keep neck straight. ?? Due to hypermobility some stability is important. Thus suggest collar to allow the ms to relax. ?? Ms tension is incresaed around the area of hypermobility. Ms relax in the supine position. Some of her pain is th increased tension when up right. ?? Instructed in isometric of the neck. ?? Pt will continue in pool as this is the best for these sx. A: Suspect that much of her sx are due to the hyper mobility of the spine. Will continue with pool and working on stability around neck nad shoulder region. P: Continue physical therapy for hyper mobility. documented in this encounter Plan of Treatment Upcoming Encounters Date Type Department Care Team (Late st Contact Info) Description 04/07/2024 3:20 PM EDT Office Visit Dermatology at [facility] [address] [place] [address] Dayanna Ramírez MD [facility] DR [address] [place] [address] documented as of this encounter Visit Diagnoses Diagnosis Suzy-Danlos syndrome type III Suzy-Danlos syndrome Cervicalgia documented in this encounter Care Teams Core Cutter Relationship Specialty Start Date End Date Abby Guaman, MOVEMENT ASSEMBLER [place] [address] PCP - General Family Medicine 03/15/16 06/19/17 documented as of this encounter
--- OUTSIDE RECORDS SUMMARY | 2024-03-20 22:09 | XMS_ITS | Encounter Summary ---
Author Organization [facility] Address [facility] [place] [address] Care Team Providers Care Glory Hole Tender Name Role Phone Abby Guaman APRN Primary Care Provider Encounter Details Date Type Department Care Team (Late st Contact Info) Description 10/24/2016 Telephone Obstetrics [place] [phone] Gloria Man MD [facility] [address] OBSTETRICS [place] [address] Social History Tobacco Use Types Packs/Day Years [...] * Telephone Encounter - Gloria Man - 10/24/2016 2:28 PM EDT Called patient to discuss results of colposcopy. No answer. VM left. Will plan for surveillance with repeat pap/HPV in 1 year. DIAGNOSIS A - Endocervical curettings: 1. Fragments of benign endocervical and metaplastic squamous mucosa intermixed with ??cervical mucus and blood clot. 2. No evidence of dysplasia or HPV effect. B - Biopsy right vaginal wall: LSIL (VAIN I/HPV effect). Gloria Man MD PGY4 Pt returned call. Discussed above at length. Pt, though frustrated that she keeps having slightly abnormal paps and wishes there was some way to make it all go away, states understanding and will return for follow up in 1 year or PRN. Gloria Man MD PGY4 documented in this encounter Plan of Treatment Upcoming Encounters Date Type Department Care Team (Late st Contact Info) Description 04/07/2024 3:20 PM EDT Office Visit Dermatology at [facility] [address] [place] [address] Dayanna Ramírez MD [facility] [place] [address] documented as of this encounter Visit Diagnoses Not on filedocumented in this encounter Care Teams Glory Hole Tender Relationship Specialty Start Date End Date Abby Guaman APRN [facility] [place] [address] PCP - General Family Medicine 03/15/16 06/19/17 documented as of this encounter
--- OUTSIDE RECORDS SUMMARY | 2024-03-20 22:09 | XMS_ITS | Encounter Summary ---
Author Organization [place] [address] Care Team Providers Care Employment Manager Name Role Phone Abby Guaman APRN Primary Care Provider [phone] Encounter Details Date Type Department Care Team (Late st Contact Info) Description 03/21/2016 11:30 AM EDT [facility] [address] [place] [address] Grisel Causey, AUTOMATIC BLOCKER [facility] PHYSICAL MEDICINE & [place] [address] Suzy-Danlos syndrome type III; Fibromyalgia; Rheumatoid arthritis [...] Progress Notes * Grisel Causey, ALIE - 03/21/2016 11:30 AM EDT Aquatic Physical Therapy Treatment Note Total Treatment Time: 40 min Time Coded Treatment: 15 min Insurance: Payor: [place] / Plan[place] PRIMARY CARE [place] / Product Type: *No Product type* / Pool visit # 4 Follow up visit for patient with 1. Suzy-Danlos syndrome type III 2. Fibromyalgia 3. Rheumatoid arthritis involving multiple sites, unspecified rheumatoid factor presence S: Pt reports she felt better after last session for 2 days, was able to climb flight of stairs 6 times without significant fatigue. Then had to miss a week of PT due to other things going on in her life. O: Aquatic Therex, individualized exercise program in a group setting: wore ankle weights full session to keep balance steadier cues for core engagement/stabilizations and on 1/2->3/4 range with all therex to work stability vs flexibility ankle floats for hip/core stab: hip 3 way with UE assist at wall as needed walking forward, retro, lateral working mechanics and posture SLS: other LE hip 3 way for core training suspended by noodle in deep water: cross country skiing hip abd/add semi squat position for core and scap stab: shld AROM: flex/ext, abd/add, horiz abd/add, IR/ER squats A: Improving tolerance to therex. P: Cont per PT POC and goals. Treatment and note completed by Grisel Causey PTA documented in this encounter Plan of Treatment Upcoming Encounters Date Type Department Care Team (Late st Contact Info) Description 04/07/2024 3:20 PM EDT Office Visit Dermatology at [address] [address] Dayanna Ramírez MD [facility] [address] [place] [address] documented as of this encounter Visit Diagnoses Diagnosis Suzy-Danlos syndrome type III Suzy-Danlos syndrome Fibromyalgia Mylagia and myositis, unspecified Rheumatoid arthritis involving multiple sites, unspecified rheumatoid factor presence documented in this encounter Care Teams Employment Manager Relationship Specialty Start Date End Date Abby Guaman APR[place] [address] PCP - General Family Medicine 03/15/16 06/19/17 documented as of this encounter
--- OUTSIDE RECORDS SUMMARY | 2024-03-20 22:09 | XMS_ITS | Encounter Summary ---
Author Organization [facility] Address [facility] [place] [address] Care Team Providers Care 4Th Grade Math Teacher Name Role Phone Jayna Velasquez MD Primary Care Provider [phone] Encounter Details Date Type Department Care Team (Latest Contact Info) Description 02/22/2016 1:39 PM EDT - 02/22/2016 11:59 PM EDT Hospital Encounter XRay at [address] [place] [address] Jayna Velasquez MD [facility] [place] [address] EDS (Suzy-Danlos syndrome) Discharge Disposition: Home Social [...] Sig Dispensed Refills Start Date End Date omeprazole (PRILOSEC) 20 mg Capsule, Delayed Release(E.C.)Indicatio [...] 3:20 PM EDT Office Visit Dermatology at [facility] [address] [place] [address] Dayanna Ramírez MD [facility] [place] [address] documented as of this encounter Procedures Procedure Name Priority Date/Time Associated Diagnosis Comments DXA CENTRAL SPINE, HIP, AND/OR WHOLE BODY (GENERIC) Routine 02/22/2016 2:14 PM EDT EDS (Suzy-Danlos syndrome) documented in this encounter Results * Dexa Central-Spine, Hip, And/Or Whole Body [...] BMD measurements and plots are available in [employer] under the imaging tab. Paper copies will be sent to providers without [employer] access. If you have received this report without the data sheet and do not have access to [employer], please contact Radiology [employer] at [phone] Sunday thru Sunday 8am-4pm. Narrative 02/25/2016 5:06 [...] neck, WHO diagnosis: Normal. Procedure Note Shiloh Perkins MD - 02/25/2016 EXAMINATION: DEXA CENTRAL SPINE, [...] copies will be sent to providers without [employer] access.If you have received this report without the data sheet and do not haveaccess to [employer], please contact Radiology [employer] at [phone] Sunday thruFrid 8am-4pm. Jayna Velasquez MD IMG DEXA ORDERABLES documented in this encounter Visit Diagnoses Diagnosis EDS (Suzy-Danlos syndrome) Suzy-Danlos syndrome documented in this encounter Care Teams 4Th Grade Math Teacher Relationship Specialty Start Date End Date Jayna Velasquez MD [facility] [place] [address] PCP - General Family Medicine 02/07/16 03/14/16 documented as of this encounter
--- OUTSIDE RECORDS SUMMARY | 2024-03-20 22:09 | XMS_ITS | Encounter Summary ---
Author Organization [facility] [place] [address] Care Team Providers Care Film Cutter Name Role Phone Abby Guaman APRN Primary Care Provider [phone] Encounter Details Date Type Department Care Team (Late st Contact Info) Description 04/27/2016 11:30 AM EDT Office Visit [facility] [place] [address] [place] [address] Grisel Causey, [employer]IN[employer] INTERNS[employer] [facility] PHYSICAL MEDICINE & [place] [address] Suzy-Danlos syndrome type III; Fibromyalgia; Rheumatoid arthritis [...] Progress Notes * Grisel Causey, ALIE - 04/27/2016 11:30 AM EDT Aquatic Physical Therapy Treatment Note Total Treatment Time: 45 min Time Coded Treatment: 15 min Insurance: Payor: [place] / Plan[place] PRIMARY CARE [place] / Product Type: *No Product type* / Pool visit # 10 Follow up visit for patient with 1. Suzy-Danlos syndrome type III 2. Fibromyalgia 3. Rheumatoid arthritis involving multiple sites, unspecified rheumatoid factor presence S: Pt reports increased neck pain trying to adjust to wearing the collar. O: Aquatic Therex, individualized exercise program in [...] wrist floats: flex/ext, abd/add, horiz abd/add, IR/ER changed float resistance to fin resistance due to sx with add from abd A: Patient able to balance/stabilize better when not prompted by therapist into conversation. P: Cont per PT POC and goals. Treatment and note completed by Grisel Causey PTA documented in this encounter Plan of Treatment Upcoming Encounters Date Type Department Care Team (Late st Contact Info) Description 04/07/2024 3:20 PM EDT Office Visit Dermatology at [address] [place] [address] Dayanna Ramírez MD [facility] [address] RAY[address] [place] [address] documented as of this encounter Visit Diagnoses Diagnosis Suzy-Danlos syndrome type III Suzy-Danlos syndrome Fibromyalgia Mylagia and myositis, unspecified Rheumatoid arthritis involving multiple sites, unspecified rheumatoid factor presence documented in this encounter Care Teams Film Cutter Relationship Specialty Start Date End Date Abby Guaman APRN [facility] [place] [address] PCP - General Family Medicine 03/15/16 06/19/17 documented as of this encounter
--- OUTSIDE RECORDS SUMMARY | 2024-03-20 22:09 | XMS_ITS | Encounter Summary ---
Author Organization [facility] [address] Care Team Providers Care Ekg Manager Name Role Phone Abby Guaman APRN Primary Care Provider [phone] Encounter Details Date Type Department Care Team (Late st Contact Info) Description 03/23/2016 11:30 AM EDT Office Visit [facility] [place] [address] [place] [address] Grisel Causey, DATA TYPIST [facility] PHYSICAL MEDICINE & [place] [address] Suzy-Danlos syndrome type III; Fibromyalgia; Rheumatoid arthritis [...] Progress Notes * Grisel Causey, ALIE - 03/23/2016 11:30 AM EDT Aquatic Physical Therapy Treatment Note Total Treatment Time: 45 min Time Coded Treatment: 15 min Insurance: Payor: [place] / Plan[place] PRIMARY C[place] / Product Type: *No Product type* / Pool visit # 5 Follow up visit for patient with 1. Suzy-Danlos syndrome type III 2. Fibromyalgia 3. Rheumatoid arthritis involving multiple sites, unspecified rheumatoid factor presence S: Pt reports she still tightens up neck/UT region. O: Aquatic Therex, individualized exercise program in a group settin.5# ankle weights except when using floats cues for core and scap engagement/stabilizations and on 1/2->3/4 range with all therex to work stability vs flexibility ankle floats for hip/core stab: hip 3 way with UE assist at wall as needed walking forward, retro, lateral working mechanics and posture (added small wrist floats to this exercise) suspended by noodle in deep water: cross country skiing hip abd/add shoulder rolls, retractions semi squat position for core and scap stab: shld AROM: flex/ext, abd/add, horiz abd/add, IR/ER squats A: Patient notes she can really feel the strengthening working on her LEs. P: Cont per PT POC and goals. Treatment and note completed by Grisel Causey PTA documented in this encounter Plan of Treatment Upcoming Encounters Date Type Department Care Team (Late st Contact Info) Description 04/07/2024 3:20 PM EDT Office Visit Dermatology at [facility] [address] [place] [address] Dayanna Ramírez MD [facility] [place] [address] documented as of this encounter Visit Diagnoses Diagnosis Suzy-Danlos syndrome type III Suzy-Danlos syndrome Fibromyalgia Mylagia and myositis, unspecified Rheumatoid arthritis involving multiple sites, unspecified rheumatoid factor presence documented in this encounter Care Teams Ekg Manager Relationship Specialty Start Date End Date Abby Guaman APRN [facility] [place] [address] PCP - General Family Medicine 03/15/16 06/19/17 documented as of this encounter
--- OUTSIDE RECORDS SUMMARY | 2024-03-20 22:09 | XMS_ITS | Encounter Summary ---
Author Organization [facility] [place] [address] Care Team Providers Care Bilingual Teacher Assistant Name Role Phone Abby Guaman APRN Primary Care Provider [phone] Encounter Details Date Type Department Care Team (Late st Contact Info) Description 03/28/2016 11:30 AM EDT [facility] [address] [place] [address] Grisel Causey, DIRECTOR OF TEENAGE ACTIVITIES [facility] PHYSICAL MEDICINE & [place] [address] Suzy-Danlos syndrome type III; Fibromyalgia; Rheumatoid arthritis [...] Progress Notes * Grisel Causey, ALIE - 03/28/2016 11:30 AM EDT Aquatic Physical Therapy Treatment Note Total Treatment Time: 35 min Time Coded Treatment: 15 min Insurance: Payor[place] / Plan[place] PRIMARY [place] / Product Type: *No Product type* / Pool visit # 6 Follow up visit for patient with 1. Suzy-Danlos syndrome type III 2. Fibromyalgia 3. Rheumatoid arthritis involving multiple sites, unspecified rheumatoid factor presence S: Pt reports she slept soundly last night, for the first time in a long time, unfortunately this also means she did not move off her (R) side. Patient states significant pain (R) shld (holding UT and levator region). O: Aquatic Therex, individualized exercise program in a group settin.5# ankle weights except when using floats cues for core and scap engagement/stabilizations and on 1/2->3/4 range with all therex to work stability vs flexibility ankle floats for hip/core stab: hip 3 way with UE assist at wall as needed (HELD TODAY) walking forward, retro, lateral working mechanics and posture (added small wrist floats to this exercise, HELD WRIST RESIST TODAY) suspended by noodle in deep water: limited time due to pain cross country skiing hip abd/add shoulder rolls, retractions semi squat position for core and scap stab: shld AROM: flex/ext, abd/add, horiz abd/add, IR/ER squats A: Significant upper body limitation today due to sx before and during session. P: Cont per PT POC and goals. Treatment and note completed by Grisel Causey PTA documented in this encounter Plan of Treatment Upcoming Encounters Date Type Department Care Team (Late st Contact Info) Description 04/07/2024 3:20 PM EDT Office Visit Dermatology at [address] [place] [address] Dayanna Ramírez MD [facility] [address] [place] [address] documented as of this encounter Visit Diagnoses Diagnosis Suzy-Danlos syndrome type III Suzy-Danlos syndrome Fibromyalgia Mylagia and myositis, unspecified Rheumatoid arthritis involving multiple sites, unspecified rheumatoid factor presence documented in this encounter Care Teams Bilingual Teacher Assistant Relationship Specialty Start Date End Date Abby Guaman APRN [facility] [place] [address] PCP - General Family Medicine 03/15/16 06/19/17 documented as of this encounter
--- OUTSIDE RECORDS SUMMARY | 2024-03-20 22:09 | XMS_ITS | Encounter Summary ---
Author Organization [facility] [place] [address] Care Team Providers Care Academic Records Specialist Name Role Phone Abby Guaman APRN Primary Care Provider [phone] Reason for Referral * Diagnostic Test (Routine) - Closed Specialty Diagnoses / Procedures Referred By Contac t Referred To Contact Diagnoses Dyspnea on exertion Family history of cardiovascular disease Procedures Echocardiogram Stress (Treadmill) Abby Guaman APRN [facility] [place] [address] [facility] [place] [address] Referral ID Status Reason Start Date Expiration Date V isits Requested Visits Authorized [id number] Closed Specialty Service Requested 06/11/2017 09/09/2017 1 1 Reason for Visit * Diagnostic Test (Routine) - Closed Specialty Diagnoses / Procedures Referred By Contac t Referred To Contact Diagnoses Dyspnea on exertion Family history of cardiovascular disease Procedures Echocardiogram Stress (Treadmill) Abby Guaman APRN [facility] [place] [address] [facility] [place] [address] Referral ID Status Reason Start Date Expiration Date V isits Requested Visits Authorized [id number] Closed Specialty Service Requested 06/11/2017 09/09/2017 1 1 Encounter Details Date Type Department Care Team (Latest Contact Info) Description 06/18/2017 10:49 AM EST - 06/18/2017 11:59 PM EST Hospital Encounter Non-Invasive Cardiology Lab On License [place] [facility] [place] [address] Abby Guaman, POST EXCHANGE MANAGER [facility] [place] [address] Dyspnea on exertion; Family history of cardiovascular disease Discharge Disposition: Home Social History Tobacco Use [...] hours as needed. 1 Inhaler 3 04/18/2016 estradiol (ESTRACE) 1 mg Tablet Take 1 tablet by mouth daily. 84 tablet 06/05/2017 11/19/2017 proGESTerone (PROMETRIUM) 200 mg Capsule Take 1 capsule by mouth daily. Take one tablet daily only on days 1-12 of each month. 30 capsule 2 06/05/2017 11/19/2017 sertraline (ZOLOFT) 100 mg Tablet Take 1 tablet by mouth daily. 90 tablet 1 06/05/2017 03/05/2018 buPROPion (WELLBUTRIN XL) 150 mg Tablet Sustained Release 24 hrIndications:Depressio n, unspecified depression type Take 1 tablet by mouth every morning. 30 tablet 3 12/15/2016 06/29/2017 sertraline (ZOLOFT) 50 mg TabletIndications:Anxie ty Take 0.5 tablets by mouth daily. Take in addition to 100mg tablet 90 tablet 1 12/15/2016 11/19/2017 naproxen sodium (ANAPROX) 550 mg TabletIndications:NEENA (juvenile [...] EDT Office Visit Dermatology at [facility] [address] [place] [address] Dayanna Ramírez MD [facility] [address] [place] [address] documented as of this encounter Procedures Procedure Name Priority Date/Time Associated Diagnosis Comments STRESS ECHO W CONTRAST W LMTD SPEC DOPP COLOR DOPP Routine 06/18/2017 12:05 PM EST Dyspnea on exertion Family history of cardiovascular disease documented in this encounter Results * STRESS ECHO W CONTRAST W LMTD SPEC DOPP COLOR DOPP (06/18/2017 12:05 PM EST) EF 60 HEARTLAB SYSTEM Anatomical Region Laterality Modality Other 06/18/2017 Narrative 06/18/2017 2:47 PM EST Procedure: ?Stress Echocardiogram Patient: ?MOISES UGALDE R ?(Age): 1970(47y) Med Rec#: ? [id number] ?Sex: ?F ? [place] [facility] [place]t / Wt: ??155(cm)/67(kg) Pt. Loc: ?Echo Lab ?BSA: ?1.66 Study Date: ?? 06/18/2017 ?Pt. Type: Tape: ? Referring: ABBY GUAMAN L Referring: Abby Guaman Reading: Pelon Zamudio ([id number]) Client Professional: Caleb Hancock Rolloff Driver: Bianca Erickson Diagnosis: *ICD-10-PCS Other forms of [...] E-wave Vmax ?1 ?m/sec ? MV deceleration [id number] ?msec ? MV A-wave Vmax ?0.6 ?m/sec [...] E-wave Vmax ?1 ?m/sec ? MV deceleration [id number] ?msec ? MV A-wave Vmax ?0.8 ?m/sec [...] Normal ? Mid-Inferoseptal ?Normal ? Normal ? [place]-Septal ? Normal ? Normal ? [place]-Anterior ? Normal ? Normal ? [place]-Lateral ?Normal ? Normal ? [place]-Inferior ? Normal ? Normal ? [place]-Tip ?Normal ? Normal ? This report has been electronically signed by: Pelon Zamudio MD ? 06/18/2017 14:47:27 Images reviewed and interpretation verified [facility] Procedure Note Pelon Zamudio MD - 06/18/2017 Procedure: Stress Echocardiogram Patient: MOISES Nava DOB(Age): 1970(47y) Med Rec#: [id number] Sex: F [place] [facility] [place]t / Wt: 155(cm)/67(kg) Pt. Loc: Echo Lab BSA: 1.66 Study Date: 06/18/2017 Pt. Type: Tape: Referring: ABBY GUAMAN L Referring: Abby Guaman Reading: Pelon Zamudio ([id number]) Client Professional: Caleb Hancock Rolloff Driver: Bianca Erickson Diagnosis: *ICD-10-PCS Other forms of [...] MV E-wave Vmax 1 m/sec MV deceleration [id number] msec MV A-wave Vmax 0.6 m/sec MV E:A ratio 1.8 ratio LV septal e' Vmax 0.1 m/sec LV lateral e' Vmax 0.1 m/sec LV E:e' septal ratio7.6 ratio LV E:e' lateral rati7.1 ratio Tricuspid Valve Value Units (Range) TR Vmax 2.4 m/sec TR peak gradient 23.4 mmHg RVSP 23 mmHg Diastolic/Systolic Function Value Units (Range) MV E-wave Vmax 1 m/sec MV deceleration [id number] msec MV A-wave Vmax 0.8 m/sec MV [...] Normal Mid-Inferior Normal Normal Mid-Inferoseptal Normal Normal [place]-Septal Normal Normal [place]-Anterior Normal Normal [place]-Lateral Normal Normal [place]-Inferior Normal Normal [place]-Tip Normal Normal This report has been electronically signed by: Pelon Zamudio MD 06/18/2017 14:47:27 Images reviewed and interpretation verified [facility] Abby Guaman APRN ECHO ORDERABLES documented in this encounter Visit Diagnoses Diagnosis Dyspnea on exertion Other dyspnea and respiratory abnormality Family history of cardiovascular disease Family history of other cardiovascular diseases documented in this encounter Administered Medications Inactive Administered Medications - up to 3 most recent administrations Medication Order MAR Action Action Date Dose Rate Site perflutren lipid microspheres (DEFINITY) injection 0.5 mL 0.5 mL, Intravenous, ONCE PRN, 1 dose, Starting on 06/18/17 at 1206, Until Sun06/18/17 at 1125, Other, for enhancement of sub-optimal echo images, Echo Lab (Intra-Procedure), Routine Given 06/18/2017 11:25 AM EST 0.5 mLs documented in this encounter Care Teams Academic Records Specialist Relationship Specialty Start Date End Date Abby Guaman APRN [facility] [place] [address] PCP - General Family Medicine 03/15/16 06/19/17 documented as of this encounter
--- OUTSIDE RECORDS SUMMARY | 2024-03-20 22:09 | XMS_ITS | Encounter Summary ---
Author Organization [facility] [place] [address] Care Team Providers Care Tip Stretcher Name Role Phone Abby Guaman APRN Primary Care Provider [phone] Encounter Details Date Type Department Care Team (Late st Contact Info) Description 05/18/2016 11:30 AM EDT [facility] [place] [address] Grisel Causey, QUALITY ASSURANCE SUPERVISOR [facility] PHYSICAL MEDICINE & [place] [address] Suzy-Danlos syndrome type III; Fibromyalgia; Rheumatoid arthritis [...] Progress Notes * Grisel Causey, ALIE - 05/18/2016 11:30 AM EDT Aquatic Physical Therapy Treatment Note Total Treatment Time: 60 min Time Coded Treatment: 15 min Insurance: Payor: [place] / Plan: [place] PRIMARY CARE [place] / Product Type: *No Product type* / Pool visit # 13 Follow up visit for patient with 1. Suzy-Danlos syndrome type III 2. Fibromyalgia 3. Rheumatoid arthritis involving multiple sites, unspecified rheumatoid factor presence S: Pt reports she is doing pretty well. O: Aquatic Therex, individualized exercise program in [...] for balance SL press with balance board while holding railing DL press holding railing for balance A: Improving strength/stability. P: Cont per PT POC and goals. Treatment and note completed by Grisel Causey PTA documented in this encounter Plan of Treatment Upcoming Encounters Date Type Department Care Team (Late st Contact Info) Description 04/07/2024 3:20 PM EDT Office Visit Dermatology at [address] [place] [address] Dayanna Ramírez MD [facility] [place] [address] documented as of this encounter Visit Diagnoses Diagnosis Suzy-Danlos syndrome type III Suzy-Danlos syndrome Fibromyalgia Mylagia and myositis, unspecified Rheumatoid arthritis involving multiple sites, unspecified rheumatoid factor presence documented in this encounter Care Teams Tip Stretcher Relationship Specialty Start Date End Date Abby Guaman [place] [address] PCP - General Family Medicine 03/15/16 06/19/17 documented as of this encounter
--- OUTSIDE RECORDS SUMMARY | 2024-03-20 22:09 | XMS_ITS | Encounter Summary ---
[place] [address] Care Team Providers Care Agricultural Scientist Name Role Phone Gita Huang MD Primary Care Provider [phone] Reason for Visit * Reason Onset Date Comments New Medication Request 10/18/2016 Medication Refill 10/18/2016 Encounter Details Date Type Department Care Team (Late st Contact Info) Description 10/18/2016 Refill Family Medicine at [facility] [address] [place] [address] aMnda Guaman NEENA (juvenile idiopathic arthritis) Social History Tobacco [...] encounter Miscellaneous Notes * Telephone Encounter - Sridevi Oliva CCMA - 10/18/2016 4:12 PM EST NEVIN-06/27/16 no upcoming appt. Pended anaprox 60 with 11 refills. Pended cetirizine 30 with 3 refills. * Telephone Encounter - Manda Guaman - 10/18/2016 9:56 AM EST Patient calling to request a prescription of Cetirizine 10mg- she states she used to get this for her allergies and just got another dog so her allergies are acting up a lot right now. She uses [facility] in [place]. Please note pt also requested Naproxen renewal. documented in this encounter Plan of Treatment Upcoming Encounters Date Type Department Care Team (Late st Contact Info) Description 04/07/2024 3:20 PM EDT Office Visit Dermatology at [facility] [address] [place] [address] Dayanna Ramírez MD [facility] [place] [address] documented as of this encounter Visit Diagnoses Diagnosis NEENA (juvenile idiopathic arthritis) Other specified inflammatory polyarthropathies documented in this encounter Care Teams Agricultural Scientist Relationship Specialty Start Date End Date Gita Huang MD [facility] [place] [address] PCP - General Family Medicine 11/13/17 02/19/19 documented as of this encounter
--- OUTSIDE RECORDS SUMMARY | 2024-03-20 22:09 | XMS_ITS | Encounter Summary ---
Author Organization [facility] Address [facility] [place] [address] Care Team Providers Care Assistant Project Engineer Name Role Phone Abby Guaman APRN Primary Care Provider [phone] Encounter Details Date Type Department Care Team (Late st Contact Info) Description 06/29/2016 11:30 AM EST Office [place] [phone] Kirt Rebolledo MD [facility] [place] [address] Suzy-Danlos syndrome type III Social History Tobacco [...] Sign Reading Time Taken Comments Blood Pressure 116/66 06/29/2016 11:24 AM EST Pulse 61 06/29/2016 11:24 AM EST Temperature 37 ??C (98.6 ??F) 06/29/2016 11:24 AM EST Respiratory Rate 18 06/29/2016 11:24 AM EST Oxygen Saturation 99% 06/29/2016 11:24 AM EST Inhaled Oxygen Concentration - - Weight 66.2 kg (146 lb) 06/29/2016 11:24 AM EST Height 154.9 cm (5' 1) 06/29/2016 11:24 AM EST Body Mass Index 27.59 06/29/2016 11:24 AM EST documented in this encounter Progress Notes * Kirt Rebolledo MD - 06/29/2016 11:30 AM EST RHEUMATOLOGY STAFF OFFICE NOTE Patient Name: Yumiko Chang Date of encounter: 06/29/2016 Rheumatologic History: -Suzy Danlos syndrome Type III - First seen at [facility] rheum 04/28 - Tried diclofenac Ms. Chang is a 46 y.o. female whom I am seeing in follow up. I had her try diclofenac. It has not helped like naproxen, but has made things tolerable. She findsthat she has benefit when she is taking twice daily. If she does not take it she has a lot of jointpain and muscle spasms/aching, especially when trying to go to sleep. She is sleeping better than she had been, and is not tossing and turning as much. There have not been any clear side effects fromthis medication. She is on omeprazole daily. She had been doing PT and doing aquatic therapy. She was doing really well with them, feeling stronger and having lost weight working with them. However, she has been told that she can't do further aquatic therapy and has really seen a decline in her health since stopping this. Her legs are not as strong, and she is not feeling as well. Further, she feels that the menopause is having a significant impact on how she is feeling. The rest of the ROS was reviewed and is found to be negative. PMH - NEENA - fibromyalgia - Asthma - Depression - PTSD - GERD - CAD - Tubal ligation - Laparoscopy in 1987 for pelvic/abdominal pain. HOME MEDICATIONS: Current Outpatient Prescriptions Medication Sig Dispense Refill ??? sertraline (ZOLOFT) 100 mg Tablet Take 1.5 tablets by mouth daily for 30 days. 45 tablet 5 ??? diclofenac (VOLTAREN) 50 mg Tablet, Delayed Release (E.C.) Take 1 tablet by mouth 2 times daily. 180 tablet 3 ??? levalbuterol (XOPENEX HFA) 45 [...] times daily as needed. 60 tablet 11 No current facility-administered medications for this visit. [...] grandmother with RA. SOCIAL HISTORY: Lives in [place], [place]. , and has 5 children, all but 2 are adults. She is not working. There is no alcohol or tobacco use. PHYSICAL EXAM BP 116/66 Pulse 61 Temp 37 ??C (98.6 ??F) Resp 18 Ht 154.9 cm (5' 1) Wt 66.2 kg (146 lb) LMP 05/13/2015 SpO2 99% BMI 27.59 kg/m2 Gen: Alert, NAD, oriented, conversant HEENT: Anicteric, no scleral injection Ext: No LE edema, nodules or cyanosis Joint exam: Elbows: There is tenderness at the lateral forearm bilaterally; There is hyperextension Wrists: No swelling, there is minimal tenderness of the right wrist, full flexion and extension Hands: No tenderness or swelling of the MCPs, PIPs, DIPs. These fingers are very loose. She can appose the left thumb and pull the pinky parallel to the forearm. Skin: No rashes or erythema ASSESSMENT AND PLAN Yumiko is a 46 year old who has a prior history of NEENA but has recently been diagnosed with Suzy-Danlos type III. From her history and exam, I agree that she has EDS. I do not see any evidence of active inflammatory arthritis, so it seems that the NEENA has resolved. She is having some benefit from the diclofenac, and I would like to see if increasing that further to 75mg bid gives her even more benefit. It is possible that the menopause has contributed to her symptoms. There are estrogen receptors in the spinal cord that mediate pain, and having lower estrogen may be driving some of her pain. It maybe worthwhile to trial a low dose of estrogen replacement to see if this gives her added pain relief. I will convey this to her PCP, Abby Guaman. Also, I think that she would really benefit from being back in aquatic, therapy. I will see if thisis still an option. I have encouraged her that maintaining her strength is going to be cooper to feeling well. I will see her back as needed. documented in this encounter Plan of Treatment Upcoming Encounters Date Type Department Care Team (Late st Contact Info) Description 04/07/2024 3:20 PM EDT Office Visit Dermatology at [facility] [address] [place] [address] Dayanna Ramírez MD [facility] [place] [address] documented as of this encounter Visit Diagnoses Diagnosis Suzy-Danlos syndrome type III Suzy-Danlos syndrome documented in this encounter Care Teams Assistant Project Engineer Relationship Specialty Start Date End Date Abby Guaman APRN [facility] [place] [address] PCP - General Family Medicine 03/15/16 06/19/17 documented as of this encounter
--- OUTSIDE RECORDS SUMMARY | 2024-03-20 22:09 | XMS_ITS | Encounter Summary ---
Author Organization [facility] Address [facility] [address] [place] [address] Care Team Providers Care Energy Director Name Role Phone Abby Guaman APRN Primary Care Provider [phone] Reason for Referral * Physical Therapy (Routine) - Closed Specialty Diagnoses / Procedures Referred By Contac t Referred To Contact Physical Therapy Diagnoses Suzy-Danlos syndrome type III Kirt Rebolledo MD [facility] [place] [address] [address] [address] [place] [address] Referral ID Status Reason Start Date Expiration Date V isits Requested Visits Authorized [id number] Closed Evaluate and Treat 06/30/2016 06/30/2017 1 1 Encounter Details Date Type Department Care Team (Late st Contact Info) Description 06/30/2016 Orders Only [place] [address] Kirt Rebolledo MD [facility] [place] [address] Suzy-Danlos syndrome type III Social History Tobacco [...] 3:20 PM EDT Office Visit Dermatology at [facility] [address] [place] [address] Dayanna Ramírez MD [facility] [address] [place] [address] Scheduled Referrals Name Type Priority Associated Diagnoses Orde r Schedule Referral to Physical Therapy Outpatient Referral Routine Suzy-Danlos syndrome type III Ordered: 06/30/2016 documented as of this encounter Visit Diagnoses Diagnosis Suzy-Danlos syndrome type III Suzy-Danlos syndrome documented in this encounter Care Teams Energy Director Relationship Specialty Start Date End Date Abby Guaman [place] [address] PCP - General Family Medicine 03/15/16 06/19/17 documented as of this encounter
--- OUTSIDE RECORDS SUMMARY | 2024-03-20 22:09 | XMS_ITS | Encounter Summary ---
Author Organization [facility] [place] [address] Care Team Providers Care Jewelry Sales Associate Name Role Phone Abby Guaman APRN Primary Care Provider [phone] Encounter Details Date Type Department Care Team (Late st Contact Info) Description 05/11/2016 11:30 AM EDT [facility] [address] [place] [address] Prashant Topete, PT PHYSICAL MEDICINE & REHABILITAT Suzy-Danlos syndrome type III; Fibromyalgia; Rheumatoid arthritis [...] as of this encounter Progress Notes * Prashant Topete, PT - 05/11/2016 11:30 AM EDT Aquatic Physical Therapy Treatment [...] factor presence S: Pt reports she is improving with less intense neck pain. Notes that when she is feeling better she tends to over do it. O: Aquatic Therex, individualized exercise program in [...] stab: shld AROM and resisted with small floats: flex/ext, abd/add, horiz abd/add, IR/ER A: Good tolerance to the exercises performed today. P: Cont per PT POC and goals. Treatment and note completed by Grisel Causey PT documented in this encounter Plan of Treatment Upcoming Encounters Date Type Department Care Team (Late st Contact Info) Description 04/07/2024 3:20 PM EDT Office Visit Dermatology at [facility] [address] [place] [address] Dayanna Ramírez MD [facility] [place] [address] documented as of this encounter Visit Diagnoses Diagnosis Suzy-Danlos syndrome type III Suzy-Danlos syndrome Fibromyalgia Mylagia and myositis, unspecified Rheumatoid arthritis involving multiple sites, unspecified rheumatoid factor presence documented in this encounter Care Teams Jewelry Sales Associate Relationship Specialty Start Date End Date Abby Guaman APRN [facility] [place] [address] PCP - General Family Medicine 03/15/16 06/19/17 documented as of this encounter
--- OUTSIDE RECORDS SUMMARY | 2024-03-20 22:09 | XMS_ITS | Encounter Summary ---
Author Organization [facility] [place] [address] Care Team Providers Care Shipping Lead Person Name Role Phone Jayna Velasquez MD Primary Care Provider [phone] Encounter Details Date Type Department Care Team (Late st Contact Info) Description 03/09/2016 11:30 AM EDT Office Visit [facility] [address] [address] Grisel Causey, CHIEF INNOVATION OFFICER [facility] PHYSICAL MEDICINE & [place] [address] Suzy-Danlos syndrome type III; Fibromyalgia; Rheumatoid arthritis [...] Progress Notes * Grisel Causey PTA - 03/09/2016 11:30 AM EDT Aquatic Physical Therapy Treatment Note Total Treatment Time: 35 min Time Coded Treatment: 15 min Insurance: Payor: [place] / Plan[place] PRIMARY CARE [place] / Product Type: *No Product type* / Pool visit # 3 Follow up visit for patient with 1. Suzy-Danlos syndrome type III 2. Fibromyalgia 3. Rheumatoid arthritis involving multiple sites, unspecified rheumatoid factor presence S: Pt reports her neck was sore following last session. O: Aquatic Therex, individualized exercise program in a group setting: wore ankle weights full session to keep balance steadier cues for core engagement/stabilizations and on 1/2->3/4 range with all therex to work stability vs flexibility significant cuing to reduce mm guarding, especially neck/shlds walking forward, retro, lateral working mechanics and posture SLS: other LE hip 3 way for core training suspended by noodle in deep water: cross country skiing hip abd/add seated at wall: pelvic tilt neutral shld AROM: flex/ext, abd/add, horiz abd/add, IR/ER squats A: Improving awareness of guarding muscles, will take time to control this well. P: Cont per PT POC and goals. Treatment and note completed by Grisel Causey PTA documented in this encounter Plan of Treatment Upcoming Encounters Date Type Department Care Team (Late st Contact Info) Description 04/07/2024 3:20 PM EDT Office Visit Dermatology at [facility] [address] [place] [address] Dayanna Ramírez MD [facility] [address] [place] [address] documented as of this encounter Visit Diagnoses Diagnosis Suzy-Danlos syndrome type III Suzy-Danlos syndrome Fibromyalgia Mylagia and myositis, unspecified Rheumatoid arthritis involving multiple sites, unspecified rheumatoid factor presence documented in this encounter Care Teams Shipping Lead Person Relationship Specialty Start Date End Date Jayna Velasquez MD [facility] [place] [address] PCP - General Family Medicine 02/07/16 03/14/16 documented as of this encounter
--- OUTSIDE RECORDS SUMMARY | 2024-03-20 22:09 | XMS_ITS | Encounter Summary ---
Author Organization [facility] [place] [address] Care Team Providers Care Rn Field Name Role Phone Abby Guaman APRN Primary Care Provider [phone] Encounter Details Date Type Department Care Team (Late st Contact Info) Description 03/17/2016 Telephone Family Medicine at [facility] [address] [place] [address] Jessica Wolf RN Social History Tobacco Use [...] Telephone Encounter - Jessica Wolf RN - 03/17/2016 8:29 AM EDT Received result message: From: Abby Guaman APRN Sent: 03/14/2016 5:50 PM To: [facility] Primary Care Team S2 Nurse Please let Yumiko know that her pulmonary function tests were normal. No indication of asthma or restrictive airway disease. Should follow up with Dr. Velasquez if further concerns. ADavis Called contact number and also saw declines to list next to phone number. Left message on answering machine to call if desires for results, but will also send letter by mail. Printed and mailed. documented in this encounter Plan of Treatment Upcoming Encounters Date Type Department Care Team (Late st Contact Info) Description 04/07/2024 3:20 PM EDT Office Visit Dermatology at [address] [place] [phone] Dayanna Ramírez MD [facility] [address] [place] [address] documented as of this encounter Visit Diagnoses Not on filedocumented in this encounter Care Teams Rn Field Relationship Specialty Start Date End Date Abby Guaman APRN [facility] [address] PCP - General Family Medicine 03/15/16 06/19/17 documented as of this encounter
--- OUTSIDE RECORDS SUMMARY | 2024-03-20 22:09 | XMS_ITS | Encounter Summary ---
Author Organization [facility] [place] [address] Care Team Providers Care Water Valve Repairer Name Role Phone Abby Guaman APRN Primary Care Provider [phone] Encounter Details Date Type Department Care Team (Late st Contact Info) Description 05/23/2016 11:30 AM EDT [facility] [address] [place] [address] Grisel Causey, PERSONNEL RECORDS CLERK [facility] PHYSICAL MEDICINE & [place] [address] Suzy-Danlos syndrome type III; Fibromyalgia; Rheumatoid arthritis [...] Progress Notes * Grisel Causey, ALIE - 05/23/2016 11:30 AM EDT Aquatic Physical Therapy Treatment Note Total Treatment Time: 60 min Time Coded Treatment: 15 min Insurance: Payor[place] / Plan[place] / Product Type: *No Product type* / Pool visit # 14 Follow up visit for patient with 1. Suzy-Danlos syndrome type III 2. Fibromyalgia 3. Rheumatoid arthritis involving multiple sites, unspecified rheumatoid factor presence S: Pt reports she is doing well, she can feel the change in her body, developing muscles that she previously had been too painful to strengthen. Patient has significant concern about regression because she is not able to afford a membership fee to a gym for continued (I) aquatic based therex. 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 Patient states she needs to return to her work soon, concerned these sx may return. O: Aquatic Therex, individualized exercise program in [...] press with no UE assist for balance trial hip ext/abd gluteal exercise with 5# ankle weight with SI region sx seated on balance board for core work and decompression deep water suspended by noodle for decompression discussed 60/60 program at [facility] and possible scholarship options A: All therex improved in technique or speed or proprioception/stability. P: Cont per PT POC and goals. Treatment and note completed by Grisel Causey PTA documented in this encounter Plan of Treatment Upcoming Encounters Date Type Department Care Team (Late st Contact Info) Description 04/07/2024 3:20 PM EDT Office Visit Dermatology at [facility] [address] [place] [address] Dayanna Ramírez MD [facility] [place] [address] documented as of this encounter Visit Diagnoses Diagnosis Suzy-Danlos syndrome type III Suzy-Danlos syndrome Fibromyalgia Mylagia and myositis, unspecified Rheumatoid arthritis involving multiple sites, unspecified rheumatoid factor presence documented in this encounter Care Teams Water Valve Repairer Relationship Specialty Start Date End Date Abby Guaman, CERTIFIED HYPERBARIC TECHNOLOGIST [facility] [place] [address] PCP - General Family Medicine 03/15/16 06/19/17 documented as of this encounter
--- OUTSIDE RECORDS SUMMARY | 2024-03-20 22:09 | XMS_ITS | Encounter Summary ---
[place] [address] Care Team Providers Care Can Slider Name Role Phone Abby Guaman APRN Primary Care Provider Reason for Visit * Reason Onset Date Comments Prior Authorization 05/16/2016 xopenex Encounter Details Date Type Department Care Team (Late st Contact Info) Description 05/16/2016 Telephone Family Medicine at [facility] [address] [place] [address] Liv Lao Prior Authorization (xopenex) Social History Tobacco Use Types Packs/Day Years [...] Telephone Encounter - Eric Marquis MA - 05/17/2016 11:15 AM EDT Medication Prior Authorization for Primary [place] [address] Approve: X Start Date: 05/16/2016 End Date: 05/16/2017 Case/Reference #: [id number] * Telephone Encounter - Dorina Romero MA - 05/16/2016 3:40 PM EDT Medication Prior Authorization for Primary [place] [address] Patient: Yumiko De Leon Patient : 1970 Subscriber Insurance: [place] Insurance Phone #: [phone] Sent via: [employer] Veronica: [id number] Physician: Abby Guaman APRN Return Medication Requested: xopenex Strength: 45 mcg/act Frequency: Inhale 1-2 puffs into the lungs every 4 hrs prn Disp.: 1 inhaler Refills: 3 Currently taking: no Diagnosis for this medication: Asthma ICD-10 code: J45.20 Prior medications trialed in this patient: Medication: albuterol Approx Dates: 01/2015-04/2016 Outcome/Adverse Reactions: Adverse reaction: increased heart rate, and dry mouth. * Telephone Encounter - Liv Lao - 05/16/2016 8:05 AM EDT Medication: Xopenex HFA 45 MCG Inhaler Insurance Company: Medicaid Phone: Fax: Subscriber ID #: documented in this encounter Plan of Treatment Upcoming Encounters Date Type Department Care Team (Late st Contact Info) Description 04/07/2024 3:20 PM EDT Office Visit Dermatology at [facility] [address] [place] [address] Dayanna Ramírez MD [facility] [place] [address] documented as of this encounter Visit Diagnoses Not on filedocumented in this encounter Care Teams Can Slider Relationship Specialty Start Date End Date Abby Guaman APRN [facility] [place] [address] PCP - General Family Medicine 03/15/16 06/19/17 documented as of this encounter
--- OUTSIDE RECORDS SUMMARY | 2024-03-20 22:10 | XMS_ITS | Encounter Summary ---
Author Organization [facility] Address [facility] [place] [address] Care Team Providers Care Thermodynamic Physicist Name Role Phone Unavailable Primary Care Provider Unavailabl e Encounter Details Date Type Department Care Team (Late st Contact Info) Description 06/30/2015 10:45 AM EST Office Visit Physical Therapy at [place] [address] [place] [address] Stacy Villa, PT [facility] [address] PHYSICAL MEDICINE & [place] [address] Cervicalgia Social History Tobacco Use Types Packs/Day Years Used Date Smoking Tobacco: Never Smokeless Tobacco: Never Alcohol Use Standard Drinks/Week Comments Yes 0 (1 standard drink = 0.6 oz pur e alcohol) occasional use, no h/o abuse Sex and Gender Information Value Date Recorded Sex Assigned at Not on file Gender Identity Not on file Sexual Orientation Not on file documented as of this encounter Progress Notes * Stacy Villa, PT - 06/30/2015 10:57 AM EST . Physical Therapy Progress Note Total treatment time: 30 minutes Total timed code treatment: 30 minutes Follow up visit for patient with 1. Cervicalgia S: Patient reports that she is sore with the ER exercise O: Therex: Strength/Endurance/ROM (81875) 15 min UBE L=3 6min ?? Rows with green band x10 shoulder ext, Er with red band x15 scaption #1, flexion#1 x10 #3 bicep curls ?? Chin tucks ?? Scapula retraction ?? Man 15 Gh post mobs bilateral ?? CTx in supine A: Tolerated treatment well but needs tactile cues to keep shoulders down P: Continue physical therapy for manual and scapulothoracic strengthening documented in this encounter Plan of Treatment Upcoming Encounters Date Type Department Care Team (Late st Contact Info) Description 04/07/2024 3:20 PM EDT Office Visit Dermatology at [facility] [address] [place] [address] Dayanna Ramírez MD [facility] [address] [place] [address] documented as of this encounter Visit Diagnoses Diagnosis Cervicalgia documented in this encounter
--- OUTSIDE RECORDS SUMMARY | 2024-03-20 22:10 | XMS_ITS | Encounter Summary ---
Author Organization [facility] Address [facility] [place] [address] Care Team Providers Care Chain Link Fence Installer Name Role Phone Unavailable Primary Care Provider Unavailabl e Encounter Details Date Type Department Care Team (Latest Contact Info) Description 03/03/2015 2:27 PM EDT - 03/03/2015 11:59 PM EDT Hospital Encounter XRay at [address] [place] [address] CPRS 1 (complex regional pain syndrome I) of upper limb, right Social History Tobacco Use Types Packs/Day Years Used Date Smoking Tobacco: Never Smokeless Tobacco: Never Alcohol Use Standard Drinks/Week Comments No 0 (1 standard drink = 0.6 oz pur e alcohol) Sex and Gender Information Value Date Recorded Sex Assigned at Not on file Gender Identity Not on file Sexual Orientation Not on file documented as of this encounter Medications at Time of Discharge Medication Sig Dispensed Refills Start Date End Date albuterol (PROVENTIL HFA;VENTOLIN HFA;PROAIR) 90 mcg/actuation HFA Aerosol Inhaler Inhale 2 puffs into the lungs every 4 hours as needed for Wheezing. Use with spacer 1 Inhaler 1 01/11/2015 04/18/2016 cetirizine (ZYRTEC) 10 mg Tablet Take 1 tablet by mouth daily. 30 tablet 3 01/11/2015 07/23/2015 estradiol (ESTRACE) 1 mg tablet Take 1 tablet by mouth daily. 84 tablet 3 12/26/2013 03/05/2015 progesterone (PROMETRIUM) 200 mg capsule Take one tablet daily only on days 1-12 of each month. 36 capsule 3 12/26/2013 03/05/2015 naproxen sodium (ANAPROX) 550 mg tabletIndications:NEENA (juvenile idiopathic arthritis) Take 1 tablet by mouth 2 times daily as needed. 60 tablet 11 07/23/2013 03/05/2015 documented as of this encounter Plan of Treatment Upcoming Encounters Date Type Department Care Team (Late st Contact Info) Description 04/07/2024 3:20 PM EDT Office Visit Dermatology at [facility] [place] [facility] [address] [place] [address] Daynana Ramírez MD [facility] [address] [place] [address] documented as of this encounter Procedures Procedure Name Priority Date/Time Associated Diagnosis Comments XR SHOULDER Routine 03/03/2015 2:57 PM EDT CPRS 1 (complex regional pain syndrome I) of upper limb, right documented in this encounter Results * XR shoulder (03/03/2015 2:57 PM EDT) Anatomical Region Laterality Modality Shoulder N/A Radiographic Magalis ging 03/03/2015 2:57 PM EDT Impressions 03/03/2015 3:22 PM EDT IMPRESSION: I do not see radiographic evidence of acute injury. Narrative 03/03/2015 3:22 PM EDT EXAMINATION: SHOULDER COMPLETE/RIGHT CLINICAL HISTORY: CPRS sx. shoulder injury while lifting heavy cabinet on shoulder TECHNIQUE: 4 views COMPARISON: None FINDINGS: No fracture or dislocation. Small subchondral cysts are evident at the acromioclavicular joint there is no swelling or other evidence of acute inflammation or injury. At the glenohumeral joint alignment is normal. There is no joint space narrowing. Procedure Note Pj Graham MD - 03/03/2015 EXAMINATION: SHOULDER COMPLETE/RIGHT CLINICAL HISTORY: CPRS sx. shoulder injury while lifting heavy cabineton shoulder TECHNIQUE: 4 views COMPARISON: None FINDINGS: No fracture or dislocation. Small subchondral cysts are evident at the acromioclavicular joint thereis no swelling or other evidence of acute inflammation or injury. At the glenohumeral joint alignment is normal. There is no joint space narrowing. IMPRESSION IMPRESSION: I do not see radiographic evidence of acute injury. Sherwin BYRNE DX ORDERABLES documented in this encounter Visit Diagnoses Diagnosis CPRS 1 (complex regional pain syndrome I) of upper limb, right documented in this encounter
--- OUTSIDE RECORDS SUMMARY | 2024-03-20 22:10 | XMS_ITS | Encounter Summary ---
Author Organization [facility] [place] [address] Care Team Providers Care Assistant Produce Manager Name Role Phone Unavailable Primary Care Provider Unavailabl e Encounter Details Date Type Department Care Team (Late st Contact Info) Description 01/07/2015 Telephone [place] [phone] Chichi Sanchez RN GENERAL INTERNAL MEDICINE [facility] Social History Tobacco Use Types Packs/Day Years [...] encounter Miscellaneous Notes * Telephone Encounter - Chichi Sanchez RN - 01/08/2015 8:36 AM EDT I called Yumiko this morning to see how she was doing and to offer her a appointment for today. She said that due to the cool night she was feeling much better Her breathing was improved and I did nothear wheezing. She could not make the appointment today but said that she would come in Sunday as scheduled. Again I told her that she should go to the ED if her breathing became more difficult for her. * Telephone Encounter - Chichi Sanchez RN - 01/07/2015 2:33 PM EDT Yumiko says that she family was in the process of relocating last month and they stayed in a gross motel. She said that she slept beside a air conditioner that has black mold and gross stuff in it. She states that she developed respirtory problems shortly after staying there. She said that in November she thinks that she may have had the flu and been more sick than she has ever been in her life. She has had trouble with her asthma since. She does notice that the humity makes her breathing more difficult. Today she had wheezing and sounded like she was SOB. I made her a appointment for Sunday but told her that her breathing became more difficulty that she should go to the ED. She agreed with the plan. documented in this encounter Plan of Treatment Upcoming Encounters Date Type Department Care Team (Late st Contact Info) Description 04/07/2024 3:20 PM EDT Office Visit Dermatology at [facility] [address] [place] [address] Dayanna Ramírez MD [facility] [place] [address] documented as of this encounter Visit Diagnoses Not on filedocumented in this encounter
--- OUTSIDE RECORDS SUMMARY | 2024-03-20 22:10 | XMS_ITS | Encounter Summary ---
Author Organization [facility] [place] [address] Care Team Providers Care Humanities Department Chair Name Role Phone Unavailable Primary Care Provider Unavailabl e Reason for Visit * Reason Onset Date Comments Results 08/18/2015 Encounter Details Date Type Department Care Team (Late st Contact Info) Description 08/18/2015 [place]phone [place] [address] Kimberlyn Gipson MD [facility] [place] [address] Results Social History Tobacco Use Types Packs/Day Years [...] encounter Miscellaneous Notes * Telephone Encounter - Vonda Vargas RN - 08/18/2015 8:33 AM EST Call placed to pt letting her know Dr. Gipson reviewed her MRA and it was normal. Confirmed that pthas appt on 09/13/2015 in Neurology. documented in this encounter Plan of Treatment Upcoming Encounters Date Type Department Care Team (Late st Contact Info) Description 04/07/2024 3:20 PM EDT Office Visit Dermatology at [facility] [address] [place] [address] Dayanna Ramírez MD [facility] [address] [place] [address] documented as of this encounter Visit Diagnoses Not on filedocumented in this encounter
--- OUTSIDE RECORDS SUMMARY | 2024-03-20 22:10 | XMS_ITS | Encounter Summary ---
[facility] [place] [address] Care Team Providers Care Template Checker Name Role Phone Unavailable Primary Care Provider Unavailabl e Reason for Referral * MRI/CAT Scan (Routine) - Denied Specialty Diagnoses / Procedures Referred By Contac t Referred To Contact Radiology Diagnoses Neuropathic pain Cervicalgia Procedures MRI Cervical Spine WO Contrast Rhiannon Acosta MD [facility] [place] [address] [place] [address] Referral ID Status Reason Start Date Expiration Date Visits Re quested Visits Authorized [id number] Denied 05/12/2015 05/11/2016 1 0 Reason for Visit * MRI/CAT Scan (Routine) - Denied Specialty Diagnoses / Procedures Referred By Contac t Referred To Contact Radiology Diagnoses Neuropathic pain Cervicalgia Procedures MRI Cervical Spine WO Contrast Rhiannon Acosta MD [facility] [place] [address] [place] [address] Referral ID Status Reason Start Date Expiration Date Visits Re quested Visits Authorized [id number] Denied 05/12/2015 05/11/2016 1 0 Encounter Details Date Type Department Care Team (Latest Contact Info) Description 05/18/2015 4:55 PM EDT - 05/18/2015 11:59 PM EDT Hospital Encounter MRI at [facility] [place] [address] Rhiannon Acosta MD [facility] [place] [address] Neuropathic pain; Cervicalgia Social History Tobacco Use Types Packs/Day [...] Sig Dispensed Refills Start Date End Date triamcinolone (KENALOG) 0.025 % CreamIndications:poiso n vasquez Apply topically 2 times daily. Indications: poison vasquez 30 g 0 04/28/2015 07/23/2015 gabapentin (NEURONTIN) 100 mg CapsuleIndications:PTS D and night sweats Take 100 mg at bedtime for hot flashes and night sweats for 2 days. Then increase to 300 mg PO QHS for 5 days. Then if needed, for daytime anxiety/stress, take 100 mg PO QAM and 300 mg QHS. Indications: PTSD and night sweats 60 capsule 0 04/28/2015 07/23/2015 naproxen sodium (ANAPROX) 550 mg TabletIndications:NEENA (juvenile idiopathic arthritis) Take 1 tablet by mouth 2 times daily as needed. 60 tablet 11 03/06/2015 10/18/2016 estradiol (ESTRACE) 1 mg Tablet Take 1 tablet by mouth daily. 84 tablet 0 03/05/2015 07/23/2015 proGESTerone (PROMETRIUM) 200 mg Capsule Take one tablet daily only on days 1-12 of each month. 36 capsule 3 03/05/2015 07/23/2015 albuterol (PROVENTIL HFA;VENTOLIN HFA;PROAIR) 90 mcg/actuation HFA Aerosol Inhaler Inhale 2 puffs into the lungs every 4 hours as needed for Wheezing. Use with spacer 1 Inhaler 1 01/11/2015 04/18/2016 cetirizine (ZYRTEC) 10 mg Tablet Take 1 tablet by mouth daily. 30 tablet 3 01/11/2015 07/23/2015 documented as of this encounter Plan of Treatment Upcoming Encounters Date Type Department Care Team (Late st Contact Info) Description 04/07/2024 3:20 PM EDT Office Visit Dermatology at [facility] [address] [place] [address] Dayanna Ramírez MD [facility] [place] [address] documented as of this encounter Procedures Procedure Name Priority Date/Time Associated Diagnosis Comments MRI CERVICAL SPINE WO CONTRAST Routine 05/18/2015 5:44 PM EDT Neuropathic pain Cervicalgia documented in this encounter Results * MRI Cervical Spine WO Contrast (05/18/2015 5:44 PM EDT) Anatomical Region Laterality Modality C-spine Magnetic Resonan ce Impressions 05/18/2015 5:48 PM EDT IMPRESSION: 1. ??No evidence for myelopathy. 2. ??Mid cervical degenerative changes as described above. Narrative 05/18/2015 5:48 PM EDT EXAMINATION: MRI CERVICAL SPINE WO CONTRAST CLINICAL HISTORY: neck pain, hyperreflexia, rule out myelopathic changes TECHNIQUE: Cervical spine MRI without contrast. Myelopathy protocol. COMPARISON: None FINDINGS: Mild degenerative changes at C4-C5, C5-C6 and C6-C7 with posterior disc osteophyte complexes that mildly narrow the spinal canal. Spinal canal is otherwise patent. Neural foraminal narrowing is most severe on the left at C4-C5, bilaterally at C4-5 C6 and on the right at C6-C7 because of uncovertebral disc osteophyte complexes. The cervical cord is of normal size and signal intensity. A Schmorl's node indents the inferior endplate of C6 with a small amount of edema. Otherwise vertebral bodies are unremarkable. Craniocervical junction is normal. Procedure Note Jeancarlos Cerna MD - 05/18/2015 EXAMINATION: MRI CERVICAL SPINE WO CONTRAST CLINICAL HISTORY: neck pain, hyperreflexia, rule out myelopathic changes TECHNIQUE: Cervical spine MRI without contrast. Myelopathy protocol. COMPARISON: None FINDINGS: Mild degenerative changes at C4-C5, C5-C6 and C6-C7 withposterior disc osteophyte complexes that mildly narrow the spinal canal. Spinalcanal is otherwise patent. Neural foraminal narrowing is most severe on the leftat C4-C5, bilaterally at C4-5 C6 and on the right at C6-C7 because ofuncovertebral disc osteophyte complexes. The cervical cord is of normal size andsignal intensity. A Schmorl's node indents the inferior endplate of C6 with asmall amount of edema. Otherwise vertebral bodies are unremarkable.Craniocervical junction is normal. IMPRESSION IMPRESSION: 1. No evidence for myelopathy. 2. Mid cervical degenerative changes as described above. Rhiannon Acosta MD IMG MRI ORDERABLES documented in this encounter Visit Diagnoses Diagnosis Neuropathic pain Neuralgia, neuritis, and radiculitis, unspecified Cervicalgia documented in this encounter
--- OUTSIDE RECORDS SUMMARY | 2024-03-20 22:10 | XMS_ITS | Encounter Summary ---
Author Organization Formerly [facility], 1928–1983 Address [facility] [place] [address] Care Team Providers Care Service Car Operator Name Role Phone Unavailable Primary Care Provider Unavailabl e Encounter Details Date Type Department Care Team (Late st Contact Info) Description 06/02/2015 10:00 AM EDT Office Visit Physical Therapy at [facility] [address] [place] [address] Stacy Villa, PT [facility] [address] PHYSICAL MEDICINE & [place] [address] Cervicalgia Social History Tobacco Use Types Packs/Day [...] Progress Notes * Stacy Villa, PT - 06/02/2015 12:35 PM EDT Physical Therapy Progress Note Total treatment time: 30 minutes Total timed code treatment: 30 minutes Follow up visit for patient with 1. Cervicalgia S: Patient reports that she is doing a bit better in her body awareness but her neck is still tight O: Therex: Strength/Endurance/ROM (75868) 15 min ?? Rows, shoulder ext, Er with red band x15 ?? Chin tucks ?? Scapula retraction ?? Man 15 STM to UT and levator scapula ?? CTx in supine A: Tolerated treatment well P: Continue physical therapy for manual and scapulothoracic strengthening documented in this encounter Plan of Treatment Upcoming Encounters Date Type Department Care Team (Late st Contact Info) Description 04/07/2024 3:20 PM EDT Office Visit Dermatology at [facility] [address] [place] [address] Dayanna Ramírez MD [facility] [address] [place] [address] documented as of this encounter Visit Diagnoses Diagnosis Cervicalgia documented in this encounter
--- OUTSIDE RECORDS SUMMARY | 2024-03-20 22:10 | XMS_ITS | Encounter Summary ---
Author Organization [facility]ly [facility] Address [facility] [place] [address] Care Team Providers Care Learn To Swim Instructor Name Role Phone Unavailable Primary Care Provider Unavailabl e Encounter Details Date Type Department Care Team (Late st Contact Info) Description 07/07/2015 11:15 AM EST Office Visit Physical Therapy at [address] [phone] Stacy Villa, PT [facility] [address] PHYSICAL MEDICINE & [place] [address] Cervicalgia Social History Tobacco Use Types Packs/Day [...] Progress Notes * Stacy Villa, PT - 07/07/2015 11:18 AM EST . Physical Therapy Progress Note Total treatment time:40minutes Total timed code treatment: 40 minutes Follow up visit for patient with 1. Cervicalgia S: Patient reports that she has a new desk and her neck has been sore since being in this new work station. 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 UBE L=3 5min( had to stop at last min due to neck pain) ?? Rows with red band 2x10 shoulder ext, Er with red band 2x10 scaption #1, flexion#1 x10 #3 bicep curls ?? Chin tucks ?? Scapula retraction ?? Man 15 Gh post mobs bilateral ?? CTx in supine ?? Arm pull A: Tolerated treatment well but needs tactile cues to keep shoulders down and needs tactile and verbal cues for exercises P: Continue physical therapy for manual and scapulothoracic strengthening documented in this encounter Plan of Treatment Upcoming Encounters Date Type Department Care Team (Late st Contact Info) Description 04/07/2024 3:20 PM EDT Office Visit Dermatology at [facility] [address] [place] [address] Dayanna Ramírez MD [facility] [address] [place] [address] documented as of this encounter Visit Diagnoses Diagnosis Cervicalgia documented in this encounter
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
--- OUTSIDE RECORDS SUMMARY | 2024-03-20 22:10 | XMS_ITS | Encounter Summary ---
Author Organization Formerly [facility] [place] [address] Care Team Providers Care Vamp Seamer Name Role Phone Unavailable Primary Care Provider Unavailabl e Reason for Visit * Reason Comments Genetic Evaluation Encounter Details Date Type Department Care Team (Late st Contact Info) Description 09/09/2015 11:00 AM EST Office [place] [address] Alana Hewitt MD [facility] [place] [address] Suzy-Danlos syndrome type III; Other chronic pain Social History Tobacco Use Types Packs/Day Years [...] Sign Reading Time Taken Comments Blood Pressure 121/71 09/09/2015 11:27 AM EST Pulse 68 09/09/2015 11:27 AM EST Temperature - - Respiratory Rate - - Oxygen Saturation - - Inhaled Oxygen Concentration - - Weight 61.7 kg (136 lb) 09/09/2015 11:27 AM EST Height 155.6 cm (5' 1.25) 09/09/2015 11:[address] Body Mass Index 25.49 09/09/2015 11:27 AM EST documented in this encounter Patient Instructions * Patient Instructions* Jelena Mooney LGC - 09/09/2015 12:01 PM EST Yumiko is a 45 y.o. woman referred to Genetics Clinic by Manda Randhawa MD for evaluation of her suspected connective tissue disorder. Her primary care provider, Dr. Sherwin Casillas, noted her diagnosis of fibromyalgia and joint hypermobility and suggested evaluation through genetics. 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 The following additional signs and symptoms can be attributed to and further support an underlying connective tissue disorder: lifelong, chronic joint pain, spontaneous joint dislocations, gastrointestinal dysfunction, striae, easy bruising, menorrhagia, hemorrhage, poor healing wounds, orthostatic intolerance, and dental complications. We spent time today reviewing this diagnosis and its medical management. The patient was provided with a copy of the [employer] article and was referred to the Suzy-Danlos National Foundation website (www.ednf.org) and www.hypermobility.org for additional information and support. A portion of the [employer] article pertaining to appropriate management is included below. Recommendations discussed today given patient's diagnosis of Suzy-Danlos syndrome, hypermobile type: 1. Vitamin D and Calcium supplementation 2. DEXA scan to assess baseline bone density due to increased risk of osteopenia 3. Echocardiogram to rule out aortic dilatation and valvular disease 4. Physical therapy following guidelines as described in EDS GeneReview[employer] article (see http://www.ncbi.nlm.nih.gov/books/HBO6692/ for full article). Aquatherapy is the preferred modality for physical therapy in patients with EDS. We would be happy to provide a local physical therapist with EDS-specific resources regarding PT for this condition. 5. Consider referral to Rheumatology or Pain Clinic for pain management 6. Consider testing renal function secondary to amount and duration of NSAID use over the years Genetic Counselor involved in case: Jelena Mooney, MS, [facility] Licensed Genetic Counselor [phone] EM: [email or web address] From [employer]Review[employer] article of EDS, hypermobility type (http://www.ncbi.nlm.nih.gov/books/LTS4491/): Management Evaluations Following Initial Diagnosis: To establish the extent of disease in an individual diagnosed with Suzy-Danlos syndrome (EDS), hypermobility type, the following evaluations are recommended: ?? Thorough history and physical examination, especially for musculoskeletal, skin, cardiovascular,gastrointestinal, and oral/dental manifestations ?? Assessment of prior experience with pharmacologic, mechanical, and/or surgical treatment of painand joint instability, as well as current degree of pain and disability ?? Baseline echocardiogram to evaluate aortic root diameter, as adjusted for age and body surface area [Tenzin et al 1989]. Significant aortic enlargement and/or other cardiac abnormalities should prompt consideration of alternative diagnoses. ?? The following evaluations should not be routine, but may be appropriate in some situations: ?? For individuals with significant orthostatic intolerance and/or tachycardia, tilt-table testing to help confirm postural orthostatic tachycardia and/or neurally-mediated hypotension. It is sometimes appropriate to rule out adrenocortical insufficiency. ?? If irritable bowel syndrome is suspected, consideration of formal gastroenterology consultation and possible endoscopy to rule out other treatable diagnoses. Celiac disease, inflammatory bowel disease, and other causes of malabsorption or bowel dysfunction are not associated with EDS, but may be coexisting diagnoses. ?? Dual-energy x-ray absorptiometry (DEXA) at any age if height loss greater than one inch is documented or x-rays are suggestive of osteopenia. Women should have their first study no later than menopause. It is unclear if or at what age men without height loss or abnormal x-rays should have a screening DEXA. ?? If a history of severe or prolonged bleeding is present, consideration of hematologic evaluationfor von Willebrand disease, thrombocytopenia, or other bleeding diathesis. Although pathophysiologically unrelated, these conditions may coexist with hypermobility type EDS and exacerbate the hematologic manifestations. ?? For individuals with significant pain and/or fatigue, screening for and correction of other potential causes, including (but not limited to) vitamin D deficiency, vitamin B12 deficiency, folate deficiency, iron deficiency, celiac disease, or hypothyroidism ?? If there is suspicion of Chiari malformation, consideration of cerebral MRI, possibly with CSF flow studies ?? Medical genetics consultation if there is uncertainty about the diagnosis or for assistance in evaluation and management Treatment of Manifestations Physical Therapy: ?? Myofascial release (any physical therapy modality that reduces spasm) provides short-term reliefof pain, lasting hours to days. While the duration of benefit is short and it must be repeated frequently, this pain relief may be critical to facilitate participation in toning exercise for stabilization of the joints. Modalities must be tailored to the individual; a partial list includes heat, cold, massage, ultrasound, electrical stimulation, acupuncture, acupressure, biofeedback, and conscious relaxation. ?? Low-resistance muscle toning exercise can improve joint stability and reduce future subluxations, dislocations, and pain. See Prevention of Primary Manifestations. ?? Transvaginal pelvic physical therapy and myofascial release (in which massage or ultrasound is applied to the pelvic musculature via a transvaginal approach) may improve dyspareunia, abdominal pain, back pain, and sometimes radicular lower-extremity pain. Assistive Devices: ?? Braces are useful to improve joint stability. Orthopedists, rheumatologists, and physical therapists can assist in recommending appropriate devices for commonly problematic joints such as knees and ankles. Shoulders and hips present more of a challenge for external bracing. Occupational therapists may be consulted for ring splints (to stabilize interphalangeal joints) and wrist or wrist/thumb braces in affected individuals with small joint instability. A soft neck collar, if tolerated, may help with neck pain and headaches. ?? A wheelchair or scooter may be necessary to offload stress on lower extremity joints. Special wheelchair customizations such as lightweight and/or motorized chairs, seat pads, and specialized wheels and wheel grasps may be necessary to accommodate pelvic and upper extremity issues. Crutches, canes, and walkers should be used cautiously as they may put increased stress on the upper extremities. ?? A waterbed, adjustable air mattress, or viscoelastic foam mattress (and/or pillow) may provide increased support with improved sleep quality and less pain. Pain Medication: ?? Pain medication is frequently underprescribed, and should be tailored to the individual's subjective symptoms and objective measures of pain, not to physical examination or radiologic findings. Individuals with mild to moderate pain may get sufficient relief from as-needed use. Those with more significant pain typically require higher doses and combinations of multiple medications. Prevention or control of pain with regularly scheduled dosing is often more successful than acute treatment with as-needed dosing. Many clinicians recruit a industrial spraypainter, but pain can be managed bythe primary physician if desired. ?? Note: All of the following dose recommendations are for adults without hepatic or renal disease;adjustments may be necessary for other populations. ?? Acetaminophen, 4000 mg in three or four divided doses, will not completely alleviate pain but aline useful and well-tolerated adjunct in combination with other agents. Acetaminophen is often present in combination with other analgesic medications and cold/flu preparations, and careful attention should be paid to the total daily dose to avoid exceeding 4000 mg/day. ?? NSAIDs (nonsteroidal anti-inflammatory drugs) (e.g., ibuprofen, naproxen, meloxicam, nabumetone)should be titrated to the maximum dose or as tolerated by upper gastrointestinal symptoms. NSAIDs are particularly useful for arthralgia, myalgia, and secondary inflammatory conditions (e.g. bursitis, tendinitis, costochodritis, or post-dislocation pain). Bruising is not a contraindication to NSAIDtherapy, but occasionally requires dose reduction or change to a Pierce-2 inhibitor. ?? Pierce-2 inhibitors (e.g. celecoxib) in maximal doses are no stronger than dose- equivalent NSAIDS, but may be better tolerated and thus more effective. ?? Tramadol can be added to acetaminophen plus an NSAID or Pierce-2 inhibitor before resorting to opioids. Nausea is the most common side effect. ?? Topical lidocaine as a cream or patch is sometimes useful for localized areas of pain. Topical capsaicin is of questionable utility, but is safe. ?? Skeletal muscle relaxants are useful in combination with all of the above to treat myofascial spasm. They are also sometimes helpful in treating neuropathic pain. Metaxalone may be the least sedating, but all are potentially limited by sedation. ?? Tricyclic antidepressants are often effective for neuropathic pain, with additional benefits of mild sedation (for those with sleep disturbance) and a little mood elevation. Constipation, a commonside effect, can be managed with fluids, fiber, stool softeners, and laxatives. For those with diarrhea- predominant irritable bowel syndrome, the constipating effect may be therapeutic. Typical dosesare nortriptyline (25-150 mg) or trazadone (50-300 mg) every evening. ?? Serotonin/norepinephrine receptor inhibitors (SNRIs), such as venlafaxine, desvenlafaxine, duloxetine, and milnacipran also offer combined benefit for depression and neuropathic pain. Venlaxafine may raise the blood pressure a few points, which potentially could be helpful for individuals with neurally mediated hypotension. ?? Some anti-seizure medications are also effective for neuropathic pain and can be used in addition to tricyclic and/or SNRI antidepressants. All require gradual titration before reaching therapeutic levels. Gabapentin should be titrated as tolerated up to at least 1200 mg three times daily beforedeclaring failure, but is often limited by sedation and/or gastrointestinal side effects. Pregabalin can be dosed twice or three times daily up to a total daily dose of at least 300 mg, and tends to be better tolerated than gabapentin. Topiramate and lamotrigine have also been used successfully. ?? Short courses of steroids can be very effective for controlling acute flares of pain associated with secondary inflammation. EDS is not an intrinsically inflammatory condition, and there is no role for chronic steroid use. ?? Opioids are effective for both myofascial pain and neuropathic pain, but should be reserved for use after failing the above medications. They should be administered in conjunction with all of the above, except tramadol, in order to minimize total opioid requirements. Since they are typically used chronically (or at least several months), the primary formulation should be long acting (e.g., sustained-release oxycodone or morphine or topical fentanyl patch) with short-acting forms of the same drug used as needed for breakthrough pain. Routine use of two or more daily doses of a short-acting form should prompt an increase in the long-acting dose or another adjustment to the pain regimen. ?? Supplemental magnesium and/or potassium anecdotally may provide some muscle relaxation and pain relief. Diarrhea, nausea, and sedation are the most common side effects. Specific validated dose recommendations do not exist. ?? Glucosamine and chondroitin may help to prevent or treat osteoarthritis in the general population. They have not been studied specifically in EDS, but are not contraindicated. Medication precautions: ?? It is critically important to evaluate all potential sources of acetaminophen and assure that total daily use does not exceed 4000 mg. ?? Abrupt cessation of anti-seizure medications can precipitate a seizure. When discontinuing, theyshould be tapered gradually. ?? Chronic opioid use can result in dependency with escalating dose requirements and diminishing effect. Narcotic bowel syndrome can also develop, and may be confused with irritable bowel syndrome. ?? Serotonin syndrome can occur when combining multiple serotonergic medications, such as tramadol,tricyclic antidepressants, SNRI antidepressants, anti-seizure medications, and opiods. Symptoms andsigns may include agitation, restlessness, tremor, hyperreflexia, ataxia, confusion, irritability, nausea, diarrhea, hyperthermia, tachycardia, hyper/hypotension and/or diaphoresis. Severity can range from mild to life-threatening. Many of these manifestations overlap those associated with EDS, making diagnosis difficult. Some individuals find mild to moderate serotonergic symptoms acceptable in order to achieve adequate pain control. Surgery and Other Procedures: ?? Many individuals will have undergone several orthopedic procedures prior to diagnosis. These often include joint debridement, tendon relocations, capsulorraphy, and arthroplasty. The degree of stabilization and pain reduction, overall patient satisfaction, and duration of improvement are variable, but usually less than in individuals without EDS [Shade et al 2003, Christine et al 2004, Juventino et al 2011b]. In general, orthopedic surgery should be delayed in favor of physical therapy and bracing. When surgery is performed, the affected individual and physician should cautiously anticipate some improvement but expect less than optimal results. There is one report of long-term improvement inshoulder stability with Achilles tendon allograft reconstruction of the joint capsule in an individual with EDS, hypermobility type [Nahed et al 2012]. It is not yet known if this approach will be successful in other affected individuals. Unlike the classic and vascular types of EDS, the hypermobility type is not associated with increased risk for perioperative skin and soft tissue complications. ?? Prolotherapy, in which saline and/or other irritants are injected in tendons or around joints toinduce scar formation and increase stability, has not been objectively studied. It is probably safeand probably subject to the same limitations as orthopedic surgery. ?? Anesthetic/corticosteroid injections for localized areas of pain and acute inflammation are often helpful, but cannot be repeated indefinitely; dry needling without injection of any material sometimes provides similar benefit. ?? Anesthetic nerve blocks can provide temporary relief of neuropathic pain. These are sometimes followed by surgical nerve root destruction and/or implantable stimulators (sensory or motor), with variable results. ?? Constant intrathecal delivery of anesthetic and/or opioid medication may reduce the need for oral/systemic medications, but should only be considered as a last resort. Bone Density ?? Therapy is the same as for any other individual with low bone density. Simple weight-bearing exercise, such as walking or use of an elliptical first aid trainer, should not be overlooked as a means to help maintain bone density as well as improve resting muscle tone. Hematologic: ?? Easy and spontaneous bruising does not require treatment, and does not require avoidance of NSAIDs. ?? For severe bleeding (e.g., epistaxis, menometrorrhagia) or operative prophylaxis, desmopressin acetate (ddAVP) is often beneficial [Arnol & Manuel 1997, Coni et al 2009]. Gastrointestinal: ?? Gastritis and reflux symptoms may require intensive therapy, including proton pump inhibitor twice daily before meals, high-dose H2-sandra at bedtime (e.g., famotidine 20-40 mg or ranitidine 150-300 mg), sucralfate one gram four times daily, and rize-pkk-mykwwaq acid-neutralizing agents. Other treatable causes, such as H. pylori infection, should be investigated. Upper endoscopy is indicated for resistant symptoms, but frequently is normal other than chronic gastritis. ?? Delayed gastric emptying should be identified if present and treated as usual with promotility agents (e.g., erythromycin, metoclopramide). ?? Irritable bowel syndrome is treated as usual with antispasmodics, antidiarrheals, and laxatives as needed. Lubiprostone is a motility enhancer that may be helpful for those with constipation only.Tricyclic antidepressants may be especially helpful for persons with both neuropathic pain and diarrhea. Cardiovascular: ?? Beta-blockade is rarely necessary, but should be considered for progressive aortic enlargement. Rarely, severe enlargement (>4.5-5.0 cm) requires surgical evaluation. ?? Neurally mediated hypotension and postural orthostatic tachycardia are treated as usual, with avoidance of sudden postural change, consideration of lower extremity and/or abdominal compression garments, exercise to increase muscle tone, supplementation of sodium and water to expand the blood volume, and sometimes pharmacologic treatment with beta-blockers, midodrine, fludrocortisone, and/or other medications [Linda et al 2012]. Dental: ?? Orthodontic and palatal corrections may tend to relapse, requiring prolonged use of a retainer. ?? Periodontal disease should be identified and treated. ?? Temporomandibular joint laxity and dysfunction are difficult to treat. There are no specific interventions of proven benefit. Intra-oral devices are sometimes helpful. Oral rest (minimization of chewing and talking), local myofascial release, and muscle relaxant medications may be beneficial foracute flares. Surgical intervention is often disappointing and should be considered only as a last resort. Psychiatric: ?? Validation of the affected individual's symptoms can be immensely helpful, as many with EDS, hypermobility type have been accused of malingering or diagnosed with primary psychiatric disorders by previous physicians. ?? Establishing trust, rapport and a supportive relationship between patient and provider is important. Emphasis should be placed on chronic, rather than acute, pain management. Distraction and hypnosis are often helpful [Ranulfo et al 2011]. ?? Depression is a common result of the chronic pain, disability, and other complications. Psychological and/or pain-oriented counseling can improve adaptation to and acceptance of these issues and the necessary physical limitations. Cognitive behavioral therapy can be particularly beneficial, but r equires active patient participation [Meghan et al 2011]. Antidepressants are also of great benefit. Many individuals initially resist a diagnosis of or therapy for depression because of concern that their problems are being written off as purely psychiatric. ?? Consumer support groups are available and can be very beneficial. Prevention of Primary Manifestations: ?? Improved joint stability may be achieved by low-resistance exercise to increase muscle tone (subconscious resting muscle contraction, as opposed to voluntarily recruited muscle strength). Emphasisshould be placed on both core and extremity muscle tone. Examples include walking, bicycling, low-impact aerobics, swimming or water exercise, and simple ulizj-of-zlutko exercise without added resistance. Core toning activities, such as balance exercises and repetitive motions focusing on the abdominal, lumbar, and interscapular muscles, are also important. Progress should be made by increasing repetitions, frequency, or duration, not resistance. It often takes months or years for significant progress to be recognized. ?? Wide audio visual coordinator writing utensils can reduce strain on finger and hand joints. An unconventional grasp of a writing utensil, gently resting the shaft in the web between the thumb and index finger and securing the tip between the distal interphalangeal joints or middle phalanges of the index and third fingers (rather than using the tips of the fingers), results in substantially reduced axial stress tothe interphalangeal, metacarpophalangeal, and carpometacarpal joints. These adjustments frequently result in marked reduction of pain in the index finger and at the base of the thumb. Prevention of Secondary Complications: ?? Calcium (500-600 mg twice daily), vitamin D (400 or more units daily), and low-impact weight bearing exercise should be encouraged to maximize bone density. Surveillance: ?? DEXA should be repeated every other year if bone loss is confirmed. ?? Annual echocardiography is not necessary in those with a normal initial echocardiogram [Nirut al 2011]. In children and adolescents with a normal aortic root diameter, it is the author's practice to repeat every two to three years until young adulthood (age ~25 years). If the aortic root diameter is increased or accelerating faster than body surface area, more frequent monitoring is appropriate. In adults with a normal aortic root diameter, no further monitoring is needed. Agents/Circumstances to Avoid: ?? Joint hyperextension must be avoided. Individuals with EDS, hypermobility type usually need to be educated about the normal range of joint extension and cautioned not to exceed it. ?? Resistance exercise can exacerbate joint instability and pain. Elastic resistance bands should be used with caution, if at all. In general, it is preferable to increase the number of repetitions of exercise rather than to increase the resistance. ?? Isometric exercise can also be problematic if too much force (resistance) is applied. ?? High-impact activity increases the risk for acute subluxation/dislocation, chronic pain, and osteoarthritis. Some sports, such as football, are therefore contraindicated. However, most sports and activities are acceptable with appropriate precautions. ?? Chiropractic adjustment is not strictly contraindicated, but must be performed cautiously to avoid iatrogenic subluxations or dislocations. ?? Crutches, canes, and walkers should be used cautiously as they may put increased stress on the upper extremities. documented in this encounter Progress Notes * Alana Hewitt MD - 09/09/2015 11:55 AM EST Subjective: Patient ID: Yumiko Chang is a 45 y.o. female. HPI Comments: Yumiko is a 45 y.o. woman with a history of lifelong, chronic joint pain, spontaneous joint dislocations, gastrointestinal dysfunction, striae, easy bruising, menorrhagia, hemorrhage, poor healing wounds, orthostatic intolerance, and dental complications who was referred to Genetics Clinic by Manda Randhawa MD for evaluation of her suspected connective tissue disorder. Her primary care provider, Dr. Sherwin Casillas, noted her diagnosis of fibromyalgia and joint hypermobilityand suggested evaluation through Genetics clinic. Review of Systems ?? General: ?? Chronic pain as described by patient: Lifelong pain, since childhood ?? Sleep disturbance: Chronic fatigue. Has always had sleep difficulties, improved lately. ?? Orthostatic intolerance: Yes ?? Growth/Endocrine: None ?? Eyes: Glasses for mixed myopia and hyperopia. Has had an episode where the blood vessels burst in her eyes, attributed to stress/anxiety. ?? ENT/Mouth: ?? Concerned about some muffled hearing ?? Dental issues: ?? Cracking teeth/Early dental loss: Losing bone in her teeth. No dental loss. Has some chipping. ?? High, narrow palate: No ?? Dental crowding: [place] teeth ?? TMJ: No ?? Dysphagia: No ?? Heart: ?? Arrhythmia, possibly related to anxiety. ?? ECHO completed: No ?? Respiratory: ?? Asthma ?? Sensation of being choked, inability to breathe, possibly related to anxiety ?? Pneumothoraces: No ?? GI: ?? GERD ?? Dyspepsia - abdominal pain/bloating with eating, early satiety ?? Functional bowel disorders: Yes, IBS followed by GI ?? : ?? Endometriosis, cervical cancer ?? Musculoskeletal: ?? Juvenile idiopathic arthritis, patient describes it as advanced RA. ?? Fibromyalgia. ?? Joint hypermobility: Yes according to Dr. Casillas (Beighton: 02/18). Patient notes lifelong history of being double jointed and hyperextension. ?? Spontaneous joint dislocations: Many dislocations of right shoulder (putting on seatbelt, carrying groceries) ?? Osteopenia/Osteoporosis: Unknown ?? Scoliosis: No ?? Chest wall deformity: No ?? Integument: ?? Striae: Yes, only after children but widespread ?? Acrocyanosis/Raynaud's: No ?? Poor healing ?? Neurologic: ?? Being followed through neurology for possible nerve damage in neck due to blunt force trauma to the area. Also frequently has the shakes ?? Headache: Frequent, daily ?? Psychiatric: ?? PTSD ?? Depression: No ?? Anxiety: No ?? Allergy/Immunology: See list ?? Hematologic: ?? Easy bruising: Yes ?? Excessive bleeding with cuts/surgeries/childbirth/dental work: Yes, hemorrhage ?? Menorrhagia: yes Objective: Physical Exam Constitutional: She appears well-developed and well-nourished. No distress. HENT: Head: Normocephalic and atraumatic. Right Ear: External ear normal. Left Ear: External ear normal. Nose: Nose normal. Mouth/Throat: Oropharynx is clear and moist. Eyes: EOM are normal. Neck: Normal range of motion. Neck supple. Cardiovascular: Normal rate and regular rhythm. No murmur heard. Pulmonary/Chest: Effort normal. No respiratory distress. Abdominal: Soft. She exhibits no mass. Musculoskeletal: Beighton scale of hypermobility: Score of five or more on the nine-point Beighton scale (Beighton et al 1973) confirms joint hypermobility. One point is scored for each of the following: Passive dorsiflexion of each fifth finger greater than 90 degrees (0). Passive apposition of each thumb to the flexor surface of the forearm (1, one thumb not assessed due to injury, reported positive) Hyperextension of each elbow greater than 10 degrees (2). Hyperextension of each knee greater than 10 degrees (1). Ability to place the palms on the floor with the knees fully extended (1) Total score: 5-6/9 Mild pes planus Neurological: She is alert. She has normal reflexes. No cranial nerve deficit. She exhibits normal muscle tone. Coordination normal. Skin: Skin is warm. Soft skin Striae Piezogenic papules (small herniations of subcutaneous fat through the underlying dermis of the heeloccurring only with weight bearing) Psychiatric: She has a normal mood and affect. Nursing note and vitals reviewed. Assessment and Plan: Yumiko is a 45 y.o. woman referred to Genetics Clinic by Manda Randhawa MD for evaluation of her suspected connective tissue disorder. Her primary care provider, Dr. Sherwin Casillas, noted her diagnosis of fibromyalgia and joint hypermobility and suggested evaluation through genetics. 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 The following additional signs and symptoms can be attributed to and further support an underlying connective tissue disorder: lifelong, chronic joint pain, spontaneous joint dislocations, gastrointestinal dysfunction, striae, easy bruising, menorrhagia, hemorrhage, poor healing wounds, orthostatic intolerance, and dental complications. We spent time today reviewing this diagnosis and its medical management. The patient was provided with a copy of the [employer] article and was referred to the Suzy-Danlos National Foundation website (www.ednf.org) and www.hypermobility.org for additional information and support. A portion of the [facility] article pertaining to appropriate management is included below. Recommendations discussed today given patient's diagnosis of Suzy-Danlos syndrome, hypermobile type: 1. Vitamin D and Calcium supplementation 2. DEXA scan to assess baseline bone density due to increased risk of osteopenia 3. Echocardiogram to rule out aortic dilatation and valvular disease 4. Physical therapy following guidelines as described in EDS GeneReview[employer] article (see http://www.ncbi.nlm.nih.gov/books/TDG1271/ for full article). Aquatherapy is the preferred modality for physical therapy in patients with EDS. We would be happy to provide a local physical therapist with EDS-specific resources regarding PT for this condition. 5. Consider referral to Rheumatology or Pain Clinic for pain management 6. Consider testing renal function secondary to amount and duration of NSAID use over the years Genetic Counselor involved in case: Jelena Mooney MS, [facility] Licensed Genetic Counselor [phone] EM: [email or web address] 60 minutes of my 80 minute encounter with this patient was spent in face to face counseling regarding EDS III. From [employer]Review[employer] article of EDS, hypermobility type (http://www.ncbi.nlm.nih.gov/books/GTT5691/): Management Evaluations Following Initial Diagnosis: To establish the extent of disease in an individual diagnosed with Suzy-Danlos syndrome (EDS), hypermobility type, the following evaluations are recommended: ?? Thorough history and physical examination, especially for musculoskeletal, skin, cardiovascular,gastrointestinal, and oral/dental manifestations ?? Assessment of prior experience with pharmacologic, mechanical, and/or surgical treatment of painand joint instability, as well as current degree of pain and disability ?? Baseline echocardiogram to evaluate aortic root diameter, as adjusted for age and body surface area [Tenzin et al 1989]. Significant aortic enlargement and/or other cardiac abnormalities should prompt consideration of alternative diagnoses. ?? The following evaluations should not be routine, but may be appropriate in some situations: ?? For individuals with significant orthostatic intolerance and/or tachycardia, tilt-table testing to help confirm postural orthostatic tachycardia and/or neurally-mediated hypotension. It is sometimes appropriate to rule out adrenocortical insufficiency. ?? If irritable bowel syndrome is suspected, consideration of formal gastroenterology consultation and possible endoscopy to rule out other treatable diagnoses. Celiac disease, inflammatory bowel disease, and other causes of malabsorption or bowel dysfunction are not associated with EDS, but may be coexisting diagnoses. ?? Dual-energy x-ray absorptiometry (DEXA) at any age if height loss greater than one inch is documented or x-rays are suggestive of osteopenia. Women should have their first study no later than menopause. It is unclear if or at what age men without height loss or abnormal x-rays should have a screening DEXA. ?? If a history of severe or prolonged bleeding is present, consideration of hematologic evaluationfor von Willebrand disease, thrombocytopenia, or other bleeding diathesis. Although pathophysiologically unrelated, these conditions may coexist with hypermobility type EDS and exacerbate the hematologic manifestations. ?? For individuals with significant pain and/or fatigue, screening for and correction of other potential causes, including (but not limited to) vitamin D deficiency, vitamin B12 deficiency, folate deficiency, iron deficiency, celiac disease, or hypothyroidism ?? If there is suspicion of Chiari malformation, consideration of cerebral MRI, possibly with CSF flow studies ?? Medical genetics consultation if there is uncertainty about the diagnosis or for assistance in evaluation and management Treatment of Manifestations Physical Therapy: ?? Myofascial release (any physical therapy modality that reduces spasm) provides short-term reliefof pain, lasting hours to days. While the duration of benefit is short and it must be repeated frequently, this pain relief may be critical to facilitate participation in toning exercise for stabilization of the joints. Modalities must be tailored to the individual; a partial list includes heat, cold, massage, ultrasound, electrical stimulation, acupuncture, acupressure, biofeedback, and conscious relaxation. ?? Low-resistance muscle toning exercise can improve joint stability and reduce future subluxations, dislocations, and pain. See Prevention of Primary Manifestations. ?? Transvaginal pelvic physical therapy and myofascial release (in which massage or ultrasound is applied to the pelvic musculature via a transvaginal approach) may improve dyspareunia, abdominal pain, back pain, and sometimes radicular lower-extremity pain. Assistive Devices: ?? Braces are useful to improve joint stability. Orthopedists, rheumatologists, and physical therapists can assist in recommending appropriate devices for commonly problematic joints such as knees and ankles. Shoulders and hips present more of a challenge for external bracing. Occupational therapists may be consulted for ring splints (to stabilize interphalangeal joints) and wrist or wrist/thumb braces in affected individuals with small joint instability. A soft neck collar, if tolerated, may help with neck pain and headaches. ?? A wheelchair or scooter may be necessary to offload stress on lower extremity joints. Special wheelchair customizations such as lightweight and/or motorized chairs, seat pads, and specialized wheels and wheel grasps may be necessary to accommodate pelvic and upper extremity issues. Crutches, canes, and walkers should be used cautiously as they may put increased stress on the upper extremities. ?? A waterbed, adjustable air mattress, or viscoelastic foam mattress (and/or pillow) may provide increased support with improved sleep quality and less pain. Pain Medication: ?? Pain medication is frequently underprescribed, and should be tailored to the individual's subjective symptoms and objective measures of pain, not to physical examination or radiologic findings. Individuals with mild to moderate pain may get sufficient relief from as-needed use. Those with more significant pain typically require higher doses and combinations of multiple medications. Prevention or control of pain with regularly scheduled dosing is often more successful than acute treatment with as-needed dosing. Many clinicians recruit a industrial spraypainter, but pain can be managed bythe primary physician if desired. ?? Note: All of the following dose recommendations are for adults without hepatic or renal disease;adjustments may be necessary for other populations. ?? Acetaminophen, 4000 mg in three or four divided doses, will not completely alleviate pain but aline useful and well-tolerated adjunct in combination with other agents. Acetaminophen is often present in combination with other analgesic medications and cold/flu preparations, and careful attention should be paid to the total daily dose to avoid exceeding 4000 mg/day. ?? NSAIDs (nonsteroidal anti-inflammatory drugs) (e.g., ibuprofen, naproxen, meloxicam, nabumetone)should be titrated to the maximum dose or as tolerated by upper gastrointestinal symptoms. NSAIDs are particularly useful for arthralgia, myalgia, and secondary inflammatory conditions (e.g. bursitis, tendinitis, costochodritis, or post-dislocation pain). Bruising is not a contraindication to NSAIDtherapy, but occasionally requires dose reduction or change to a Pierce-2 inhibitor. ?? Pierce-2 inhibitors (e.g. celecoxib) in maximal doses are no stronger than dose- equivalent NSAIDS, but may be better tolerated and thus more effective. ?? Tramadol can be added to acetaminophen plus an NSAID or Pierce-2 inhibitor before resorting to opioids. Nausea is the most common side effect. ?? Topical lidocaine as a cream or patch is sometimes useful for localized areas of pain. Topical capsaicin is of questionable utility, but is safe. ?? Skeletal muscle relaxants are useful in combination with all of the above to treat myofascial spasm. They are also sometimes helpful in treating neuropathic pain. Metaxalone may be the least sedating, but all are potentially limited by sedation. ?? Tricyclic antidepressants are often effective for neuropathic pain, with additional benefits of mild sedation (for those with sleep disturbance) and a little mood elevation. Constipation, a commonside effect, can be managed with fluids, fiber, stool softeners, and laxatives. For those with diarrhea- predominant irritable bowel syndrome, the constipating effect may be therapeutic. Typical dosesare nortriptyline (25-150 mg) or trazadone (50-300 mg) every evening. ?? Serotonin/norepinephrine receptor inhibitors (SNRIs), such as venlafaxine, desvenlafaxine, duloxetine, and milnacipran also offer combined benefit for depression and neuropathic pain. Venlaxafine may raise the blood pressure a few points, which potentially could be helpful for individuals with neurally mediated hypotension. ?? Some anti-seizure medications are also effective for neuropathic pain and can be used in addition to tricyclic and/or SNRI antidepressants. All require gradual titration before reaching therapeutic levels. Gabapentin should be titrated as tolerated up to at least 1200 mg three times daily beforedeclaring failure, but is often limited by sedation and/or gastrointestinal side effects. Pregabalin can be dosed twice or three times daily up to a total daily dose of at least 300 mg, and tends to be better tolerated than gabapentin. Topiramate and lamotrigine have also been used successfully. ?? Short courses of steroids can be very effective for controlling acute flares of pain associated with secondary inflammation. EDS is not an intrinsically inflammatory condition, and there is no role for chronic steroid use. ?? Opioids are effective for both myofascial pain and neuropathic pain, but should be reserved for use after failing the above medications. They should be administered in conjunction with all of the above, except tramadol, in order to minimize total opioid requirements. Since they are typically used chronically (or at least several months), the primary formulation should be long acting (e.g., sustained-release oxycodone or morphine or topical fentanyl patch) with short-acting forms of the same drug used as needed for breakthrough pain. Routine use of two or more daily doses of a short-acting form should prompt an increase in the long-acting dose or another adjustment to the pain regimen. ?? Supplemental magnesium and/or potassium anecdotally may provide some muscle relaxation and pain relief. Diarrhea, nausea, and sedation are the most common side effects. Specific validated dose recommendations do not exist. ?? Glucosamine and chondroitin may help to prevent or treat osteoarthritis in the general population. They have not been studied specifically in EDS, but are not contraindicated. Medication precautions: ?? It is critically important to evaluate all potential sources of acetaminophen and assure that total daily use does not exceed 4000 mg. ?? Abrupt cessation of anti-seizure medications can precipitate a seizure. When discontinuing, theyshould be tapered gradually. ?? Chronic opioid use can result in dependency with escalating dose requirements and diminishing effect. Narcotic bowel syndrome can also develop, and may be confused with irritable bowel syndrome. ?? Serotonin syndrome can occur when combining multiple serotonergic medications, such as tramadol,tricyclic antidepressants, SNRI antidepressants, anti-seizure medications, and opiods. Symptoms andsigns may include agitation, restlessness, tremor, hyperreflexia, ataxia, confusion, irritability, nausea, diarrhea, hyperthermia, tachycardia, hyper/hypotension and/or diaphoresis. Severity can range from mild to life-threatening. Many of these manifestations overlap those associated with EDS, making diagnosis difficult. Some individuals find mild to moderate serotonergic symptoms acceptable in order to achieve adequate pain control. Surgery and Other Procedures: ?? Many individuals will have undergone several orthopedic procedures prior to diagnosis. These often include joint debridement, tendon relocations, capsulorraphy, and arthroplasty. The degree of stabilization and pain reduction, overall patient satisfaction, and duration of improvement are variable, but usually less than in individuals without EDS [Shade et al 2003, Christine et al 2004, Juventino et al 2011b]. In general, orthopedic surgery should be delayed in favor of physical therapy and bracing. When surgery is performed, the affected individual and physician should cautiously anticipate some improvement but expect less than optimal results. There is one report of long-term improvement inshoulder stability with Achilles tendon allograft reconstruction of the joint capsule in an individual with EDS, hypermobility type [Nahed et al 2012]. It is not yet known if this approach will be successful in other affected individuals. Unlike the classic and vascular types of EDS, the hypermobility type is not associated with increased risk for perioperative skin and soft tissue complications. ?? Prolotherapy, in which saline and/or other irritants are injected in tendons or around joints toinduce scar formation and increase stability, has not been objectively studied. It is probably safeand probably subject to the same limitations as orthopedic surgery. ?? Anesthetic/corticosteroid injections for localized areas of pain and acute inflammation are often helpful, but cannot be repeated indefinitely; dry needling without injection of any material sometimes provides similar benefit. ?? Anesthetic nerve blocks can provide temporary relief of neuropathic pain. These are sometimes followed by surgical nerve root destruction and/or implantable stimulators (sensory or motor), with variable results. ?? Constant intrathecal delivery of anesthetic and/or opioid medication may reduce the need for oral/systemic medications, but should only be considered as a last resort. Bone Density ?? Therapy is the same as for any other individual with low bone density. Simple weight-bearing exercise, such as walking or use of an elliptical first aid trainer, should not be overlooked as a means to help maintain bone density as well as improve resting muscle tone. Hematologic: ?? Easy and spontaneous bruising does not require treatment, and does not require avoidance of NSAIDs. ?? For severe bleeding (e.g., epistaxis, menometrorrhagia) or operative prophylaxis, desmopressin acetate (ddAVP) is often beneficial [Arnol & Manuel 1997, Coni et al 2009]. Gastrointestinal: ?? Gastritis and reflux symptoms may require intensive therapy, including proton pump inhibitor twice daily before meals, high-dose H2-sandra at bedtime (e.g., famotidine 20-40 mg or ranitidine 150-300 mg), sucralfate one gram four times daily, and zlal-tja-znckrsa acid-neutralizing agents. Other treatable causes, such as H. pylori infection, should be investigated. Upper endoscopy is indicated for resistant symptoms, but frequently is normal other than chronic gastritis. ?? Delayed gastric emptying should be identified if present and treated as usual with promotility agents (e.g., erythromycin, metoclopramide). ?? Irritable bowel syndrome is treated as usual with antispasmodics, antidiarrheals, and laxatives as needed. Lubiprostone is a motility enhancer that may be helpful for those with constipation only.Tricyclic antidepressants may be especially helpful for persons with both neuropathic pain and diarrhea. Cardiovascular: ?? Beta-blockade is rarely necessary, but should be considered for progressive aortic enlargement. Rarely, severe enlargement (>4.5-5.0 cm) requires surgical evaluation. ?? Neurally mediated hypotension and postural orthostatic tachycardia are treated as usual, with avoidance of sudden postural change, consideration of lower extremity and/or abdominal compression garments, exercise to increase muscle tone, supplementation of sodium and water to expand the blood volume, and sometimes pharmacologic treatment with beta-blockers, midodrine, fludrocortisone, and/or other medications [Linda et al 2012]. Dental: ?? Orthodontic and palatal corrections may tend to relapse, requiring prolonged use of a retainer. ?? Periodontal disease should be identified and treated. ?? Temporomandibular joint laxity and dysfunction are difficult to treat. There are no specific interventions of proven benefit. Intra-oral devices are sometimes helpful. Oral rest (minimization of chewing and talking), local myofascial release, and muscle relaxant medications may be beneficial foracute flares. Surgical intervention is often disappointing and should be considered only as a last resort. Psychiatric: ?? Validation of the affected individual's symptoms can be immensely helpful, as many with EDS, hypermobility type have been accused of malingering or diagnosed with primary psychiatric disorders by previous physicians. ?? Establishing trust, rapport and a supportive relationship between patient and provider is important. Emphasis should be placed on chronic, rather than acute, pain management. Distraction and hypnosis are often helpful [Ranulfo et al 2011]. ?? Depression is a common result of the chronic pain, disability, and other complications. Psychological and/or pain-oriented counseling can improve adaptation to and acceptance of these issues and the necessary physical limitations. Cognitive behavioral therapy can be particularly beneficial, but r equires active patient participation [Meghan et al 2011]. Antidepressants are also of great benefit. Many individuals initially resist a diagnosis of or therapy for depression because of concern that their problems are being written off as purely psychiatric. ?? Consumer support groups are available and can be very beneficial. Prevention of Primary Manifestations: ?? Improved joint stability may be achieved by low-resistance exercise to increase muscle tone (subconscious resting muscle contraction, as opposed to voluntarily recruited muscle strength). Emphasisshould be placed on both core and extremity muscle tone. Examples include walking, bicycling, low-impact aerobics, swimming or water exercise, and simple [id number]-[id number] exercise without added resistance. Core toning activities, such as balance exercises and repetitive motions focusing on the abdominal, lumbar, and interscapular muscles, are also important. Progress should be made by increasing repetitions, frequency, or duration, not resistance. It often takes months or years for significant progress to be recognized. ?? Wide audio visual coordinator writing utensils can reduce strain on finger and hand joints. An unconventional grasp of a writing utensil, gently resting the shaft in the web between the thumb and index finger and securing the tip between the distal interphalangeal joints or middle phalanges of the index and third fingers (rather than using the tips of the fingers), results in substantially reduced axial stress tothe interphalangeal, metacarpophalangeal, and carpometacarpal joints. These adjustments frequently result in marked reduction of pain in the index finger and at the base of the thumb. Prevention of Secondary Complications: ?? Calcium (500-600 mg twice daily), vitamin D (400 or more units daily), and low-impact weight bearing exercise should be encouraged to maximize bone density. Surveillance: ?? DEXA should be repeated every other year if bone loss is confirmed. ?? Annual echocardiography is not necessary in those with a normal initial echocardiogram [Polly al 2011]. In children and adolescents with a normal aortic root diameter, it is the author's practice to repeat every two to three years until young adulthood (age ~25 years). If the aortic root diameter is increased or accelerating faster than body surface area, more frequent monitoring is appropriate. In adults with a normal aortic root diameter, no further monitoring is needed. Agents/Circumstances to Avoid: ?? Joint hyperextension must be avoided. Individuals with EDS, hypermobility type usually need to be educated about the normal range of joint extension and cautioned not to exceed it. ?? Resistance exercise can exacerbate joint instability and pain. Elastic resistance bands should be used with caution, if at all. In general, it is preferable to increase the number of repetitions of exercise rather than to increase the resistance. ?? Isometric exercise can also be problematic if too much force (resistance) is applied. ?? High-impact activity increases the risk for acute subluxation/dislocation, chronic pain, and osteoarthritis. Some sports, such as football, are therefore contraindicated. However, most sports and activities are acceptable with appropriate precautions. ?? Chiropractic adjustment is not strictly contraindicated, but must be performed cautiously to avoid iatrogenic subluxations or dislocations. ?? Crutches, canes, and walkers should be used cautiously as they may put increased stress on the upper extremities. * Jelena Mooney [facility] - 09/09/2015 11:43 AM EST History of Present Concerns: Yumiko, a 45 y.o. female, was referred for medical genetics evaluation by Manda Randhawa MD for consultation regarding her possible connective tissue disorder such as Suzy-Danlos syndrome. Concern for this possible diagnosis was raised by Dr. Sherwin Casillas due to Yumiko'sjoint hypermobility and diagnosis of fibromyalgia. Dr. Casillas noted a Beighton score of 7/9 and wanted to ensure that the appropriate diagnosis was made to ensure appropriate PT and medical management. Yumiko raised the following questions for Dr. Alana Hewitt: 1. 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 /Medical History: No history on file. OB History Para Term AB TAB SAB Ectopic Multiple Living 4 4 4 2 5 # Outc Date GA Lbr Edgard/2nd Wgt Sex Del Anes PTL Lv 1 Term Vag-Spont 2 Term Vag-Spont 3 Term Vag-Spont 4A Term Vag-Spont 4B Term Vag-Spont Past Medical History Diagnosis Date ??? Rheumatoid arthritis ??? Ankle sprain ??? Uterine cancer ??? Breast lump left ??? Myocardial infarct ??? Asthma ??? Fibromyalgia Surgical History: Past Surgical History Procedure Laterality Date ??? Laparoscopy 1987 Diagnostic laparoscopy for pelvic pain ??? Tubal ligation 1989 ??? Created by interface 1999 IVF (twin gestation) ??? Leep 06/06/06 WINIFRED ??? Pro upper gi endoscopy, biopsy 09/07/2011 EGD WITH BIOPSY performed by Desmond WHIPPLE at [facility] ??? Pro colonoscopy, biopsy 09/07/2011 COLONOSCOPY FLEXIBLE, WITH BX performed by Desmond WHIPPLE at [facility] ??? Colposcopy 05/18/06 Developmental History: Patient has no history of developmental concerns. Social History: History Social History Narrative The patient has 5 children, 14 yo twin daughters and an autistic 25 yo son live with her currently.She has two older sons. Family History: ?? A complete pedigree was obtained and will be scanned into the medical record. Parent report the following medical symptoms in patient: ?? General: ?? Chronic pain as described by patient: Lifelong pain, since childhood ?? Sleep disturbance: Chronic fatigue. Has always had sleep difficulties, improved lately. ?? Orthostatic intolerance: Yes ?? Growth/Endocrine: None ?? Eyes: Glasses for mixed myopia and hyperopia. Has had an episode where the blood vessels burst in her eyes, attributed to stress/anxiety. ?? ENT/Mouth: ?? Concerned about some muffled hearing ?? Dental issues: ?? Cracking teeth/Early dental loss: Losing bone in her teeth. No dental loss. Has some chipping. ?? High, narrow palate: No ?? Dental crowding: [place] teeth ?? TMJ: No ?? Dysphagia: No ?? Heart: ?? Arrhythmia, possibly related to anxiety. ?? ECHO completed: No ?? Respiratory: ?? Asthma ?? Sensation of being choked, inability to breathe, possibly related to anxiety ?? Pneumothoraces: No ?? GI: ?? GERD ?? Dyspepsia - abdominal pain/bloating with eating, early satiety ?? Functional bowel disorders: Yes, IBS followed by GI ?? : ?? Endometriosis, cervical cancer ?? Musculoskeletal: ?? Juvenile idiopathic arthritis, patient describes it as advanced RA. ?? Fibromyalgia. ?? Joint hypermobility: Yes according to Dr. Casillas (Beighton: 02/18). Patient notes lifelong history of being double jointed and hyperextension. ?? Spontaneous joint dislocations: Many dislocations of right shoulder (putting on seatbelt, carrying groceries) ?? Osteopenia/Osteoporosis: Unknown ?? Scoliosis: No ?? Chest wall deformity: No ?? Integument: ?? Striae: Yes, only after children but widespread ?? Acrocyanosis/Raynaud's: No ?? Poor healing ?? Neurologic: ?? Being followed through neurology for possible nerve damage in neck due to blunt force trauma to the area. Also frequently has the shakes ?? Headache: Frequent, daily ?? Psychiatric: ?? PTSD ?? Depression: No ?? Anxiety: No ?? Allergy/Immunology: See list ?? Hematologic: ?? Easy bruising: Yes ?? Excessive bleeding with cuts/surgeries/childbirth/dental work: Yes, hemorrhage ?? Menorrhagia: yes Testing: Prior to today's appointment the following studies were completed: Labs: ?? None Radiology: ?? None Other: ?? None documented in this encounter Plan of Treatment Upcoming Encounters Date Type Department Care Team (Late st Contact Info) Description 04/07/2024 3:20 PM EDT Office Visit Dermatology at [facility] [address] [place] [address] Dayanna Ramírez MD [facility] [place] [address] documented as of this encounter Visit Diagnoses Diagnosis Suzy-Danlos syndrome type III Suzy-Danlos syndrome Other chronic pain documented in this encounter
--- OUTSIDE RECORDS SUMMARY | 2024-03-20 22:10 | XMS_ITS | Encounter Summary ---
Author Organization [facility] Address [facility] [place] [address] Care Team Providers Care Cook Dinner Name Role Phone Unavailable Primary Care Provider Unavailabl e Reason for Visit * Reason Onset Date Comments Medication Refill 03/05/2015 Encounter Details Date Type Department Care Team (Late st Contact Info) Description 03/05/2015 [place] [phone] Shahida Bobby Social History Tobacco Use Types Packs/Day Years [...] encounter Miscellaneous Notes * Telephone Encounter - Sherwin Casillas DO - 03/05/2015 10:00 PM EDT Would like to see her to discuss use of estrogen tablets if wants another refill after this. Need to know duration of Rx and inform of risks and offer taper and alternative Rx PRN. documented in this encounter Plan of Treatment Upcoming Encounters Date Type Department Care Team (Late st Contact Info) Description 04/07/2024 3:20 PM EDT Office Visit Dermatology at [facility] [address] [place] [address] Dayanna Ramírez MD [facility] [address] [address] documented as of this encounter Visit Diagnoses Not on filedocumented in this encounter
--- OUTSIDE RECORDS SUMMARY | 2024-03-20 22:10 | XMS_ITS | Encounter Summary ---
Author Organization [facility] Address [facility] [place] [address] Care Team Providers Care Boom Truck Driver Name Role Phone Unavailable Primary Care Provider Unavailabl e Reason for Visit * Reason Comments Follow-up Encounter Details Date Type Department Care Team (Late st Contact Info) Description 09/09/2015 1:15 PM EST Office Visit Obstetrics [place] [address] Rosi Man MD [facility] DR OBSTETRICS & [place] [address] Atypical squamous cells of undetermined significance on cytologic smear of cervix (ASC-US); Menopausal and perimenopausal disorder Social History Tobacco Use Types Packs/Day Years [...] Sign Reading Time Taken Comments Blood Pressure 120/74 09/09/2015 1:24 PM EST Pulse - - Temperature - - Respiratory Rate - - Oxygen Saturation - - Inhaled Oxygen Concentration - - Weight 62.1 kg (137 lb) 09/09/2015 1:24 PM EST Height 155.6 cm (5' 1.25) 09/09/2015 1:24 PM ES T Body Mass Index 25.68 09/09/2015 1:24 PM EST documented in this encounter Progress Notes * Maryan West MD - 09/13/2015 8:51 AM EST The case was discussed at the time of the visit or immediately after the visit. The assessment and plan were formulated in discussion with me and I agree with them as documented. I have reviewed the history, physical exam, assessment and plan with Dr. Marquez. MARYAN WEST MD * CarlRosi khalil Elijah - 09/09/2015 1:36 PM EST Follow-up Office Visit Patient Name: Yumiko De Leon Date of : 1970 Primary Care Provider: Manda Randhawa MD Date of Visit: 09/10/2015 Reason for Visit: YUMIKO DE LEON is a 45 y.o. female who presents for follow up Subjective: Yumiko reports that she continues to feeling as if something is wrong. In general, she continues to feel much better off hormones. She is working with neurology for arm and neck issue. She is havingpins and needles. Feeling like when you're and get preeclampsia. Next steps in her workup include MRA and nerve conduction study. She has also recently been through a workup with the breast care center for patient concerns about changes in her breast which essentially returned benign. She has been in between PCPs as her previous provider, Matthewe has left, but she has an appt with a new PCP upcoming. She reports her current menopausal symptoms include having a lot of heat (last much longer than flashes, sometimes all day), feeling drenched in sweat throughout the day, nausea, and shaking. She is sleeping very well and not waking through night. She reports her symptoms are worse with drinking water. She has had no menses since May (3 months) when she had a bleed after stopping her HRT. Objective: Filed Vitals: 09/09/15 1324 BP: 120/74 Height: 155.6 cm (5' 1.25) Weight: 62.143 kg (137 lb) General - well appearing, well groomed in NAD Labs/Imaging: DIAGNOSIS A - Cervical biopsy at 5 o'clock: - Metaplastic squamous mucosa with acute and chronic cervicitis; cannot exclude mild LSIL ??(HPV effect). B - Endocervical curettings: - Fragments of atypical metaplastic squamous mucosa intermixed with fragments of endocervical mucosa, mucus, and blood clot. - No definite evidence of dysplasia or HPV effect. C - Endometrial biopsy: - Fragments of benign inactive endometrium intermixed with endocervical mucosa, cervical mucus and blood clot. - No evidence of hyperplasia or endometritis. Assessment/Plan: Yumiko De Leon is a 45 y.o. female with multiple complaints, as outlined above -We discussed treatment options for her vasomotor perimenopausal symptoms. As she has not toleratedHRT well and is overall less symptomatic off of hormones, I would recommend a non-hormonal therapy.She has previously tried gabapentin and did not tolerate this per patient report. My recommendationshould she desire symptom management with medications would be to start paroxitine 7.5mg/day. Consideration could also be given to an SSNRI such as desvenlafaxine 100mg/day which, while not FDA approved for vasomotor symptoms, has been studied and shown to be efficacious, and may have the dual benefit of symptom relief for her recently diagnosed Suzy-Danlos syndrome. Yumiko would like to complete her neurology evaluation first before starting anything new, which seems reasonable. She will callwith questions or if she would like to start medication. We reviewed environmental changes for symptoms management as well. -We reviewed her pathology from her recent colposcopy. Plan is for repeat pap and HPV testing in [address] West, Attending ROSI MARQUEZ MD, PGY3 documented in this encounter Plan of Treatment Upcoming Encounters Date Type Department Care Team (Late st Contact Info) Description 04/07/2024 3:20 PM EDT Office Visit Dermatology at [facility] [address] [place] [phone] Dayanna Ramírez MD [facility] [address] [place] [address] documented as of this encounter Visit Diagnoses Diagnosis Atypical squamous cells of undetermined significance on cytologic smear of cervix (ASC-US) Papanicolaou smear of cervix with atypical squamous cells of undetermined significance (ASC-US) Menopausal and perimenopausal disorder Unspecified menopausal and postmenopausal disorder documented in this encounter
--- OUTSIDE RECORDS SUMMARY | 2024-03-20 22:10 | XMS_ITS | Encounter Summary ---
Author Organization [facility] [place] [address] Care Team Providers Care Apparatus Cleaner Name Role Phone Unavailable Primary Care Provider Unavailabl e Encounter Details Date Type Department Care Team (Late st Contact Info) Description 07/26/2015 [place] [address] Kimberlyn Gipson MD [facility] [place] [address] Social History Tobacco Use Types Packs/Day Years [...] encounter Miscellaneous Notes * Telephone Encounter - Cleo Keller RN - 07/26/2015 12:50 PM EST Last visit 07-23-15 Next visit 09-13-15 Caller: patient. Reason for call: Patient has an MRI today and would like to inform that she has swollen nodes to her right groin that she has for six months, and one to each of her breast that she has had for more than one year, in which she is being followed by the breast care center. Patient wanted Dr. Gipson to be aware just in case, because she is having an MRI today and she was inquiring if she wanted to have images taking of her right groin. Plan: forwarded to Dr. Gipson for comment and review. documented in this encounter Plan of Treatment Upcoming Encounters Date Type Department Care Team (Late st Contact Info) Description 04/07/2024 3:20 PM EDT Office Visit Dermatology at [facility] [address] [place] [address] Dayanna Ramírez MD [facility] [place] [address] documented as of this encounter Visit Diagnoses Not on filedocumented in this encounter
--- OUTSIDE RECORDS SUMMARY | 2024-03-20 22:10 | XMS_ITS | Encounter Summary ---
Author Organization [place] [address] Care Team Providers Care Professor Of Architecture Name Role Phone Unavailable Primary Care Provider Unavailabl e Encounter Details Date Type Department Care Team (Late st Contact Info) Description 07/06/2015 Telephone [place] [phone] Rabia Portillo RN Social History Tobacco Use Types Packs/Day [...] encounter Miscellaneous Notes * Telephone Encounter - Rabia Portillo RN - 07/07/2015 8:47 AM EST Correction. Appointment for colposcopy cancelled. Appointment for consult for hysterectomy scheduled. * Telephone Encounter - Rabia Portillo RN - 07/06/2015 4:22 PM EST Phone call from WASHING MACHINE ASSEMBLERLala. Lala phoned to schedule patient for a colposcopy. Patient stated that she did not want a colposcopy. Patient stated that she wanted a consult for a hysterectomy as dicussed during her last office visit. Lala asked that message be forwarded to patient's provider. Appointment for consult for hysterectomy cancelled. documented in this encounter Plan of Treatment Upcoming Encounters Date Type Department Care Team (Late st Contact Info) Description 04/07/2024 3:20 PM EDT Office Visit Dermatology at [facility] [address] [place] [address] Dayanna Ramírez MD [facility] [address] [place] [address] documented as of this encounter Visit Diagnoses Not on filedocumented in this encounter
--- OUTSIDE RECORDS SUMMARY | 2024-03-20 22:10 | XMS_ITS | Encounter Summary ---
Author Organization [facility] Address [facility] [place] [address] Care Team Providers Care Thermo Processor Name Role Phone Unavailable Primary Care Provider Unavailabl e Encounter Details Date Type Department Care Team (Late st Contact Info) Description 05/18/2015 1:00 PM EDT Office Visit Physical Therapy at [facility] [address] [place] [address] Stacy Hoover, PT [facility] DR PHYSICAL MEDICINE & [place] [address] Cervicalgia Social History Tobacco Use Types Packs/Day [...] of this encounter Progress Notes * Stacy Hoover, PT - 05/18/2015 1:15 PM EDT PHYSICAL THERAPY INITIAL EXAMINATION Date of Exam/First Treatment: 05/18/2015 Date of onset: chronic Referring Provider: Yen Mccall MD Diagnosis: 1. Cervicalgia CURRENT HISTORY: Yumiko De Leon is a 45 y.o. female referred to physical therapy for treatment of neck pain. She reports that she irritated her shoulder when moving a few months ago. She reports that she could not move right arm for months and she reports she has improvement but still weak. She gets some numbness in entire arm and the numbness happens occasionally. She has PMH of fibromyalgia and rheumatoid arthri tis. She also has some hypermobility issues and feels her right shoulder is unstable and cannot lift much with it. She has not been active in past few years but does report in 2010 she was regularly working out and felt good. 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 She has chronic daily headaches. 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 Prior Level of Function: able to walk, lift and exercise without pain Functional Limitations: as above CLINICAL FINDINGS: Posture: Forward head , Thoracic kyphosis increased, Protracted scapula and Rounded shoulders Range of motion and strength: Range of motion (deg) Strength ( /5) Cervical flexion wfl 4+ extension wfl 4+ SB right 25% restricted 4+ SB left 25% 4+ rotation right wfl 5 rotation left wfl 4+ shoulder flexion R: 180 L: 180 R: 4+ L: 4+ abduction R: 170 L: 170 R: 4 L: 4+ IR/ER R: 90 L: 90 R: 4- L: 4- Special Tests: VAT - Hoffmans not performed Spurlings - Distraction - Compression - ULTT - Reflexes: Right Left Biceps Normal Normal Triceps Normal Normal Brachioradialis Joint mobility: segmental mobility at cervical spine: Hypomobile Palpation: Tenderness with palpation at anterior shoulder, OA and neck; light touch: Normal Flexibility: pectoralis and upper trapezius Functional Outcome Score: Neck disability index (NDI): 21/50 correlating to a 42% disability per self report secondary to neck pain. core strength Fair + CLINICAL EVALUATION AND DIAGNOSIS: These findings are consistent with hyper mobility and faulty scapulothoracic rhythm with weakness in right RC Expect with skilled physical therapy interventions patient will be able to return to prior level offunction. GOALS: Therapy Short Term Goals ( 2wks) Patient will... 1. be indep with home exercise program. 2. Good awareness of posture Therapy Snf Goals ( 6wks) Patient will... 1. demo a decrease in self report disability by reducing NDI score to 12/50 in order to meet a clinically meaningful difference from initial evaluation score (MCID=[id number]%). INITIAL TREATMENT INCLUDED: Examination and instruction in a home exercise program (refer to scan doc in chart review for details), patient education regarding physical therapy plan of care, anatomy and diagnosis. Scapula retraction, rows with red band and chin tucks PLAN: Frequency and duration: 1 x per week for 8 weeks Treatment: Manual Techniques, Soft tissue mobilization, Stretching, Joint mobilization, Therapeutic exercise, Patient/Family education, Body Mechanics, Posture and Home Exercise Program Total Treatment time:60min Total Timed Code Treatment: 0 minutes The plan has been discussed with the patient and Yumiko De Leon has agreed with the planned treatment. STACY HOOVER PT documented in this encounter Plan of Treatment Upcoming Encounters Date Type Department Care Team (Late st Contact Info) Description 04/07/2024 3:20 PM EDT Office Visit Dermatology at [address] [place] [address] Dayanna Ramírez MD [facility] [address] [place] [address] documented as of this encounter Visit Diagnoses Diagnosis Cervicalgia documented in this encounter
--- OUTSIDE RECORDS SUMMARY | 2024-03-20 22:10 | XMS_ITS | Encounter Summary ---
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 [place] [address] [place] [address] Referral ID Status Reason Start Date Expiration Date V isits Requested Visits Authorized [id number] Closed Specialty Service Requested 07/23/2015 10/21/2015 1 1 Reason for Visit * Diagnostic Test (Routine) - Closed Specialty Diagnoses / Procedures Referred By Contac t Referred To Contact Radiology Diagnoses Dizziness Vertigo Blunt trauma of neck Procedures MRI Neck Angiogram WO Contrast Kimberlyn Gipson MD [facility] [place] [address] [place] [address] Referral ID Status Reason Start Date Expiration Date V isits Requested Visits Authorized [id number] Closed Specialty Service Requested 07/23/2015 10/21/2015 1 1 Encounter Details Date Type Department Care Team (Latest Contact Info) Description 07/26/2015 4:55 PM EST - 07/26/2015 11:59 PM EST [place] [address] Kimberlyn Gipson MD [facility] [place] [address] Dizziness; Vertigo Discharge Disposition: Home Social History Tobacco Use [...] Sig Dispensed Refills Start Date End Date naproxen sodium (ANAPROX) 550 mg TabletIndications:NEENA (juvenile [...] Dermatology at [facility] [address] [place] [address] Dayanna Ramírez MD [facility] [address] [place] [address] documented as of this encounter Procedures Procedure Name Priority Date/Time Associated Diagnosis Comments MRI NECK ANGIOGRAM WO CONTRAST Routine 07/26/2015 5:40 PM EST Dizziness Vertigo documented in this encounter Results * MRI Neck Angiogram WO Contrast (07/26/2015 5:40 PM EST) Anatomical Region Laterality Modality Neck Magnetic Resonan ce Impressions 07/26/2015 8:25 PM EST IMPRESSION: Normal MRA neck exam. I have personally reviewed the image(s) and the residents interpretation and agree with the findings, Brayden Cristobal at 07/26/2015 8:25 PM Narrative 07/26/2015 8:25 PM EST EXAMINATION: MRI NECK ANGIOGRAM WO CONTRAST CLINICAL HISTORY: recurrent vertigo in setting neck trauma - evaluate for especially posterior circulation compromise TECHNIQUE: MRA of the neck without intravenous contrast. COMPARISON: CT head exam from 10/12/2009 FINDINGS: There is normal three-vessel aortic arch configuration. The origins and courses of the bilateral vertebral arteries are normal in appearance. The right vertebral artery is dominant. The origins and courses of the bilateral common carotid arteries are normal in appearance. The carotid bifurcation is normal in appearance. The cervical course of the internal carotid arteries are normal in appearance. The vertebrobasilar system and posterior circulation are normal in appearance. There is a left posterior communicating artery. Procedure Note Brayden Cristobal MD - 07/26/2015 EXAMINATION: MRI NECK ANGIOGRAM WO CONTRAST CLINICAL HISTORY: recurrent vertigo in setting neck trauma - evaluatefor especially posterior circulation compromise TECHNIQUE: MRA of the neck without intravenous contrast. COMPARISON: CT head exam from 10/12/2009 FINDINGS: There is normal three-vessel aortic arch configuration. The origins and courses of the bilateral vertebral arteries are normalin appearance. The right vertebral artery is dominant. The origins and courses of the bilateral common carotid arteries arenormal in appearance. The carotid bifurcation is normal in appearance. The cervicalcourse of the internal carotid arteries are normal in appearance. The vertebrobasilar system and posterior circulation are normal inappearance. There is a left posterior communicating artery. IMPRESSION IMPRESSION: Normal MRA neck exam. I have personally reviewed the image(s) and the residents interpretationand agree with the findings, Brayden Cristobal at 07/26/2015 8:25 PM Kimberlyn Gipson MD [facility] MRI ORDERABLES documented in this encounter Visit Diagnoses Diagnosis Dizziness Dizziness and giddiness Vertigo Dizziness and giddiness documented in this encounter
--- OUTSIDE RECORDS SUMMARY | 2024-03-20 22:10 | XMS_ITS | Encounter Summary ---
Author Organization [facility] Address [facility] [place] [address] Care Team Providers Care Certified Professional Coder Name Role Phone Unavailable Primary Care Provider Unavailabl e Encounter Details Date Type Department Care Team (Latest Contact Info) Description 08/03/2015 1:42 PM EST - 08/03/2015 11:59 PM EST Hospital En[place] [address] Solo Em MD [facility] [place] [address] Left breast mass Discharge Disposition: Home Social History Tobacco Use [...] Encounters Date Type Department Care Team (Late Contact Info) Description 04/07/2024 3:20 PM EDT Office Visit Dermatology at [facility] [address] [place] [address] Dayanna Ramírez MD [facility] DR [address] [place] [address] documented as of this encounter Procedures Procedure Name Priority Date/Time Associated Diagnosis Comments MAMMO BREAST US LIMITED LEFT Routine 08/03/2015 3:08 PM EST Left breast mass documented in this encounter Results * Mammo Breast Us Limited Left (08/03/2015 3:08 PM EST) Anatomical Region Laterality Modality Breast Left Mammography Narrative 08/05/2015 7:25 AM EST DIAGNOSTIC MAMMOGRAPHY OF THE LEFT BREAST CLINICAL HISTORY: left breast mass. ??45-year-old female presenting for diagnostic evaluation of palpable left breast lesion left upper outer quadrant. TECHNIQUE AND VIEWS OBTAINED: Images acquired with direct digital capture CC and MLO views of bilateral breasts, ML and magnification MLO view of the left breast. ??Tomographic imaging was performed The exam was evaluated by CAD version 8.3.17. COMPARISONS: Multiple prior mammograms including most recent of 12/26/2012, multiple prior ultrasounds including most recent of 12/26/2012 BREAST DENSITY: The breasts are heterogeneously dense, which may obscure small masses FINDINGS MAMMOGRAPHY: No suspicious mass, architectural distortion, or calcifications in either breast. There is a stable island of fibroglandular tissue in the left axilla corresponding to area of palpable concern. FINDINGS ULTRASOUND: Ultrasound performed of the upper outer quadrant. Stable left axillary island of fibroglandular tissue, at 1:00 13 cm from the nipple. Otherwise no suspicious mass or architectural distortion. DIAGNOSTIC SUMMARY: BI-RADS Category 2: Benign mammogram and ultrasound of the left breast RECOMMENDATION: Resume routine screening mammography. I have personally reviewed the image(s) and the residents interpretation and agree with the findings, Mechelle Henry at 08/05/2015 7:25 AM Solo Em MD IMG MAMMO ORDERABLES documented in this encounter Visit Diagnoses Diagnosis Left breast mass Lump or mass in breast documented in this encounter
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
--- OUTSIDE RECORDS SUMMARY | 2024-03-20 22:10 | XMS_ITS | Encounter Summary ---
[facility] Address [facility] [place] [address] Care Team Providers Care Bottling Machine Operator Name Role Phone Unavailable Primary Care Provider Unavailabl e Reason for Referral * Consultation (Routine) - Closed Specialty Diagnoses / Procedures Referred By Contac t Referred To Contact Obstetrics and Gynecology Diagnoses HPV in female Atypical squamous cells of undetermined significance on cytologic smear of cervix (ASC-US) Latonia Acosta PA [facility] [place] [place] [address] Chanell Millan CNM [facility] [place] [address] Referral ID Status Reason Start Date Expiration Date V isits Requested Visits Authorized [id number] Closed Consult, Test & Treat 06/30/2015 06/29/2016 1 1 Encounter Details Date Type Department Care Team (Late st Contact Info) Description 06/30/2015 Telephone [place] [address] Latonia Acosta PA [facility] [place] [address] Social History Tobacco Use Types Packs/Day Years [...] Telephone Encounter - Latonia Acosta PA - 06/30/2015 12:17 PM EST Called to discuss results with patient on recent pap smear- ASCUS and HPV +. She has a hx of abnormal paps, s/p colposcopy and LEEP. Will refer back to SAP BUSINESS ANALYST documented in this encounter Plan of Treatment Upcoming Encounters Date Type Department Care Team (Late st Contact Info) Description 04/07/2024 3:20 PM EDT Office Visit Dermatology at [facility] [address] [place] [address] Dayanna Ramírez MD [facility] [address] [place] [address] Scheduled Referrals Name Type Priority Associated Diagnoses Orde r Schedule Referral to Ob-Explosives Detonator Outpatient Referral Routine HPV in female Atypical squamous cells of undetermined significance on cytologic smear of cervix (ASC-US) Ordered: 06/30/2015 documented as of this encounter Visit Diagnoses Diagnosis HPV in female Human papillomavirus in conditions classified elsewhere and of unspecified site Atypical squamous cells of undetermined significance on cytologic smear of cervix (ASC-US) Papanicolaou smear of cervix with atypical squamous cells of undetermined significance (ASC-US) documented in this encounter
--- OUTSIDE RECORDS SUMMARY | 2024-03-20 22:10 | XMS_ITS | Encounter Summary ---
Author Organization [facility] Address [facility] [place] [address] Care Team Providers Care Flat Drier Name Role Phone Unavailable Primary Care Provider Unavailabl e Encounter Details Date Type Department Care Team (Latest Contact Info) Description 03/03/2015 2:27 PM EDT - 03/03/2015 11:59 PM EDT Hospital Encounter XRay at [address] [place] [address] CPRS 1 (complex regional pain syndrome I) [...] at [facility] [address] [place] [address] Dayanna Ramírez MD [facility] [address] [place] [address] documented as of this encounter Procedures Procedure Name Priority Date/Time Associated Diagnosis Comments XR CERVICAL SPINE ROUTINE AND OBLIQUE (4 OR 5 VIEWS) Routine 03/03/2015 2:57 PM EDT documented in this encounter Results * XR Cervical Spine Routine & Oblique (4 or 5 views) (03/03/2015 2:57 PM EDT) Anatomical Region Laterality Modality T-spine N/A Radiographic Magalis ging 03/03/2015 2:57 PM EDT Impressions 03/03/2015 4:02 PM EDT IMPRESSION: 1. ??There is evidence of degenerative disc disease at C4-5, C5-6 and C6-7. 2. ??Straightening of the spine is suggestive of paravertebral muscle spasm. 3. ??Mild bilateral exit foramen encroachment at C5-6. 4. ??Minimal marginal spurring arises from the C4, C5 and C6 vertebrae. Narrative 03/03/2015 4:02 PM EDT EXAMINATION: CERVICAL SPINE ROUTINE+OBLIQUE (4 or 5 [...] soft tissue masses or calcifications are noted. Procedure Note Leonardo Pederson, DO - 03/03/2015 EXAMINATION: CERVICAL SPINE ROUTINE+OBLIQUE (4 or 5 views) CLINICAL HISTORY: cervical radiculopathy? TECHNIQUE: 5 views. COMPARISON: None FINDINGS: No acute fractures are seen. There is intervertebral disc spacenarrowing identified at the C4-5, C5-6 and C6-7 interspaces consistent withdegenerative disc disease. The remaining intervertebral disc spacings and vertebralbody heights appear adequately maintained. There is straightening of thespine demonstrated suggestive of paravertebral muscle spasm. Marginal spurringis seen arising from the C4, C5, C6 vertebrae. The odontoid process and spinous processes appeared intact. The facet articulations appear to be withinnormal limits. Oblique views demonstrate mild bilateral exit foramen encroachmentat C5-6. The remaining exit foramina appeared patent. No abnormal softtissue masses or calcifications are noted. IMPRESSION IMPRESSION: 1. There is evidence of degenerative disc disease at C4-5, C5-6 andC6-7. 2. Straightening of the spine is suggestive of paravertebral musclespasm. 3. Mild bilateral exit foramen encroachment at C5-6. 4. Minimal marginal spurring arises from the C4, C5 and C6 vertebrae. Sherwin BYRNE DX ORDERABLES documented in this encounter Visit Diagnoses Diagnosis CPRS 1 (complex regional pain syndrome I) of upper limb, right documented in this encounter
--- OUTSIDE RECORDS SUMMARY | 2024-03-20 22:10 | XMS_ITS | Encounter Summary ---
Author Organization [facility] [place] [address] Care Team Providers Care Scientific Glass Blower Name Role Phone Unavailable Primary Care Provider Unavailabl e Encounter Details Date Type Department Care Team (Late st Contact Info) Description 02/02/2015 External Results [place] [phone] Social History Tobacco Use Types Packs/Day Years [...] 3:20 PM EDT Office Visit Dermatology at [facility] [address] [place] [address] Dayanna Ramírez MD [facility] [place] [address] documented as of this encounter Visit Diagnoses Not on filedocumented in this encounter
--- OUTSIDE RECORDS SUMMARY | 2024-03-20 22:10 | XMS_ITS | Encounter Summary ---
Author Organization [facility] [place] [address] Care Team Providers Care Boxing And Pressing Supervisor Name Role Phone Unavailable Primary Care Provider Unavailabl e Encounter Details Date Type Department Care Team (Late st Contact Info) Description 02/02/2015 External Results [place] [phone] Eleanor Ying Social History Tobacco Use Types Packs/Day Years [...] 3:20 PM EDT Office Visit Dermatology at [facility] [address] [place] [address] Dayanna Ramírez MD [facility] [place] [address] documented as of this encounter Procedures Procedure Name Priority Date/Time Associated Diagnosis Comments EXTERNAL LAB CBC CMP THYROID RESULTS PANEL Routine 03/17/2014 documented in this encounter Results * (ABNORMAL) CBC / CMP / Thyroid External Results (03/17/2014) White Blood Cell 9.4(Exter nal Lab) Hemoglobin 12.0(Exte rnal Lab) 12.0 - 16.0 Hematocrit 37.2(Exte rnal Lab) 36.0 - 46.0 Mean Cell Volume 82.1(Exte rnal Lab) 82.0 - 108.0 Platelet 256(Exter nal Lab) Sodium 143(Exter nal Lab) 137 - 147 Potassium 3.6(Exter nal Lab) 3.4 - 5.3 Chloride 104(Exter nal Lab) 99 - 108 Carbon Dioxide 25(Studio Operations Manager al Lab) 22 - 29 Blood Urea Nitrogen 14(Studio Operations Manager al Lab) Creatinine 0.80(Exte rnal Lab) Glucose 88(Studio Operations Manager al Lab) Calcium 9.5 8.7 - 10.7 Protein, Total 7.1(Exter nal Lab) 6.4 - 8.2 Albumin 4.3(Exter nal Lab) 3.5 - 5.0 Bilirubin, Total 1.3(Exter nal Lab) 0.1 - 1.4 Alkaline Phosphatase 50(Studio Operations Manager al Lab) Aspartate Aminotransferase 21(Studio Operations Manager al Lab) 13 - 35 Alanine Aminotransferase 26(Studio Operations Manager al Lab) 7 - 35 Hemoglobin A1c 5.6(Exter nal Lab) Cholesterol, Total 160(Exter nal Lab) mg/dL Comment:01-04-2005 HDL Cholesterol 58(Studio Operations Manager al Lab) md/dL LDL Cholesterol 91(Studio Operations Manager al Lab) mg/dL Triglyceride 54(Studio Operations Manager al Lab) mg/dL 03/17/2014 Historical Provider EXTERNAL LAB ABRAHAM CHOWDARY documented in this encounter Visit Diagnoses Not on filedocumented in this encounter
--- OUTSIDE RECORDS SUMMARY | 2024-03-20 22:10 | XMS_ITS | Encounter Summary ---
Author Organization [facility] [place] [address] Care Team Providers Care Mixing And Molding Machine Operator Name Role Phone Unavailable Primary Care Provider Unavailabl e Reason for Visit * Reason Comments Breast Mass Encounter Details Date Type Department Care Team (Late st Contact Info) Description 08/03/2015 11:00 AM EST Office Visit [place] [address] Jessica Toscano NOUGAT CUTTER MACHINE [facility] [place] [address] Breast mass Social History Tobacco Use Types Packs/Day [...] Progress Notes * Jessica Toscano APRN - 08/03/2015 11:04 AM EST Ms. De Leon is a 42-year-old female who returns today for evaluation of a possible mass in her left axilla/lateral ridge of her left breast. Yumiko has been evaluated in the past for similar concerns by both myself and Dr Morgan. Work up has been negative to date and her mammogram and left us in 2012 was normal.She is scheduledfor breast imaging later today. Since her last work up Yumiko has been monitoring the area until this past year when she started developing a variety of symptoms making her feeling poorly overall. In December she hurt her neck while moving furniture prompting PT and Pain [facility]. She was seen by a Neurologist recently and had a neck MRI. During that time Yumiko felt a new mass in her left neck. She feels a mass in her right groin and has been seen by Loss Prevention Associate,needing a.biopsy soon after an abnormal pap. She is wendi menopausal and admits to cyclic fullness and tenderness in the area. She denies any skin changes, breast trauma,prior [...] character to her left breast,without discrete masses. Assessment: 45 yo female with a stable breast exam but according to the patient she is experiencinga change to her exam. Will work up with imaging. Plan:Mammogram and US today.I will call her after her imaging to discuss follow up. She agrees. documented in this encounter Plan of Treatment Upcoming Encounters Date Type Department Care Team (Late st Contact Info) Description 04/07/2024 3:20 PM EDT Office Visit Dermatology at [facility] [address] [place] [phone] Dayanna Ramírez MD [facility] [place] [address] documented as of this encounter Visit Diagnoses Diagnosis Breast mass Lump or mass in breast documented in this encounter
--- OUTSIDE RECORDS SUMMARY | 2024-03-20 22:10 | XMS_ITS | Encounter Summary ---
Author Organization [facility] Address [facility] [place] [address] Care Team Providers Care Retail Operations Specialist Name Role Phone Unavailable Primary Care Provider Unavailabl e Encounter Details Date Type Department Care Team (Latest Contact Info) Description 03/03/2015 2:27 PM EDT - 03/03/2015 11:59 PM EDT Hospital Encounter XRay at [address] [place] [address] CPRS 1 (complex regional pain syndrome I) [...] Office Visit Dermatology at [facility] [address] [place] [address] Dayanna Ramírez MD [facility] [place] [address] documented as of this encounter Procedures Procedure Name Priority Date/Time Associated Diagnosis Comments XR HAND DIAGNOSTIC MINIMUM 3 VIEWS Routine 03/03/2015 2:56 PM EDT documented in this encounter Results * XR hand diagnostic minimum 3 views (03/03/2015 2:56 PM EDT) Anatomical Region Laterality Modality Hand N/A Radiographic Magalis ging 03/03/2015 2:56 PM EDT Impressions 03/03/2015 3:18 PM EDT IMPRESSION: I do not see an obvious explanation for the patient's clinical presentation with pain and joint popping Narrative 03/03/2015 3:18 PM EDT EXAMINATION: DIAG HAND MIN 3 VIEWS/RIGHT CLINICAL HISTORY: hand pain and joint popping TECHNIQUE: 3 views COMPARISON: None FINDINGS: No fracture. Alignment is normal with the exception of a mild degree of ulnar minus. The lunate is normal in appearance and there is no appreciable arthropathy at the distal radioulnar joint. No joint space narrowing. Focal lesion of bone. Procedure Note Pj Graham MD - 03/03/2015 EXAMINATION: DIAG HAND MIN 3 VIEWS/RIGHT CLINICAL HISTORY: hand pain and joint popping TECHNIQUE: 3 views COMPARISON: None FINDINGS: No fracture. Alignment is normal with the exception of a mild degree of ulnar minus.The lunate is normal in appearance and there is no appreciable arthropathy atthe distal radioulnar joint. No joint space narrowing. Focal lesion of bone. IMPRESSION IMPRESSION: I do not see an obvious explanation for the patient's clinicalpresentation with pain and joint popping Sherwin BYRNE DX ORDERABLES documented in this encounter Visit Diagnoses Diagnosis CPRS 1 (complex regional pain syndrome I) of upper limb, right documented in this encounter
--- OUTSIDE RECORDS SUMMARY | 2024-03-20 22:10 | XMS_ITS | Encounter Summary ---
Author Organization [facility] Address [facility] [place] [address] Care Team Providers Care Electronic Game Developer Name Role Phone Unavailable Primary Care Provider Unavailabl e Reason for Visit * Reason Comments Biopsy colpscopy Encounter Details Date Type Department Care Team (Late st Contact Info) Description 08/16/2015 1:30 PM EST Procedure visit Obstetrics [place] [address] Rosi Man MD [facility] [place] [address] Cervical dysplasia; Abnormal uterine bleeding (AUB); Atypical squamous cells of undetermined significance on cytologic smear of cervix (ASC-US) Social History Tobacco Use Types Packs/Day Years Used Date Smoking Tobacco: Never Smokeless Tobacco: Never Alcohol Use Standard Drinks/Week Comments No 0 (1 standard drink = 0.6 oz pur e alcohol) Sex and Gender Information Value Date Recorded Sex Assigned at Not on file Gender Identity Not on file Sexual Orientation Not on file documented as of this encounter Progress Notes * Liz Munoz MD - 08/17/2015 4:11 PM EST I was the attending physician supervising Dr. Marquez (resident) in the above care. I performed colposcopy with her and we discussed her assessment and plan at the time of her visit. She had an unsatisfactory colposcopy as the SCJ was not visible. There was small area of non- uptake of Lugol's but no discernible lesion and this area was biopsied along with ECC and EmBx. I agree with Dr. Marquez'sdocumentation. * Rosi Marquez - 08/16/2015 1:38 PM EST Colposcopy Note Yumiko Chang is a 45 y.o. y.o. P5 here for colposcopy, referred by MARGARET TAI MD Her last pap smear showed 06/16/15 ASCUS, +HPV high risk other than 16/18 Prior past hx: 2013, 2011, 2009, 2008, 2007, 2006 NILM Hx of LEEP in 2005 She is using BTL for control. She denies history of smoking. Current Outpatient Prescriptions on File Prior to Visit Medication Sig Dispense Refill ??? naproxen sodium (ANAPROX) 550 mg Tablet Take 1 tablet by mouth 2 times daily as needed. 60 tablet 11 ??? albuterol (PROVENTIL HFA;VENTOLIN HFA;PROAIR) 90 mcg/actuation HFA Aerosol Inhaler Inhale 2 puffs into the lungs every 4 hours as needed for Wheezing. Use with spacer 1 Inhaler 1 No current facility-administered medications on file prior [...] for the procedure. On exam, external genitalia normal, vagina thin, hypoestrogenic appearing, and without lesion. Vagina and cervix without visible lesion on speculum exam. Cervix near to flush with vagina, thoughlarge and multiparous. SCJ not visualized. Colposcopic evaluation using 5% acetic acid showed no lesions on the cervix or fornixes. On reexamination with Lugol's solution, small lesion approx 5mm present at 5 o'clock. Pulverizing And Sifting Operator biopsies were done at 5 o'clock, along with ECC. Bleeding was controlled using pressure. EMB: The cervix was then cleaned with betadine x3. A pipelle was placed through the cervix without difficulty. A biopsy was obtained in 360 degree fashion. Tissue was placed into formalin for pathologic specimen and labeled with her name and date of . The patient tolerated the procedure well with minimal bleeding. Impression: Inadequate colposcopy with at most mild dysplasia present. Vagina and cervix appear hypoestrogenic. Biopsy taken at 5 o'clock in addition to ECC and EMB. Plan: Will contact patient with results if abnormal, otherwise patient will follow up in clinic in 2-3 weeks for further discussion as per previous note. This patient was seen and plan formulated with Dr. Munoz, Attending. ROSI MARQUEZ MD PGY3 documented in this encounter Plan of Treatment Upcoming Encounters Date Type Department Care Team (Late st Contact Info) Description 04/07/2024 3:20 PM EDT Office Visit Dermatology at [facility] [address] [place] [address] Dayanna Ramírez MD [facility] DR RAYNE [place] [address] documented as of this encounter Procedures Procedure Name Priority Date/Time Associated Diagnosis Comments SPECIMEN TO PATHOLOGY (NON-OR) Routine 08/16/2015 2:19 PM EST Cervical dysplasia SPECIMEN TO PATHOLOGY (NON-OR) Routine 08/16/2015 2:19 PM EST Cervical dysplasia SPECIMEN TO PATHOLOGY (NON-OR) Routine 08/16/2015 2:19 PM EST Abnormal uterine bleeding (AUB) SURGICAL PATHOLOGY REPORT Routine 08/16/2015 2:19 PM EST documented in this encounter Results * Surgical Pathology Report (08/16/2015 2:19 PM EST) Final Diagnosis [id number] ? Location: 5L The signing pathologist has (i) examined the relevant preparation(s) for the specimen(s) and (ii) rendered or confirmed the diagnosis(es). . ?Surgical Pathology DIAGNOSIS A - Cervical biopsy at 5 o'clock: - Metaplastic squamous mucosa with acute and chronic cervicitis; cannot exclude mild LSIL (HPV effect). B - Endocervical curettings: - Fragments of atypical metaplastic squamous mucosa intermixed with fragments of endocervical mucosa, mucus, and blood clot. - No definite evidence of dysplasia or HPV effect. C - Endometrial biopsy: - Fragments of benign inactive endometrium intermixed with endocervical mucosa, cervical mucus and blood clot. - No evidence of hyperplasia or endometritis. CR-0 08/19/15 LJT 08/19/15 Verified by: ? Blanca RIVERA, Ivelisse Leos ?Pathologist ?(Electronic Signature) The attending pathologist whose signature appears on this report has reviewed all diagnostic slides and has edited the gross and/or microscopic portion of the report in rendering the final pathologic diagnosis. CLINICAL INFORMATION Specimen Submitted: A - Colposcopy, lesion at 5 o'clock B - Colposcopy, ECC C - Endometrial biopsy Clinical History: ASCUS Pap, HPV positive, irregular bleeding, perimenopausal Clinical Diagnosis: Mild dysplasia, ECJ not visualized, AUB SPECIMEN PROCESSING A - Labeled/Fixative: A-5 o'clock biopsy position, formalin. Quantity/Size: Single, 0.2 cm Tissue Description: Soft, day-white tissue. Sections/Processi ng: (T1) B - Labeled/Fixative: B-ECC, formalin. Quantity/Size: Fragments, collectively 1.0 x 1.0 x 0.6 cm. Tissue Description: Soft, pink-bryant mucoid tissue. Sections/Processi ng: (T1) C - Labeled/Fixative: C-endometrial biopsy, formalin. Quantity/Size: Fragments, collectively 0.9 x 0.8 x 0.3 cm. Tissue Description: Soft, hemorrhagic red-bryant tissue. Sections/Processi ng: (T1) ??ejr 08/19/2015 2:32 PM EST [facility] ENDOMETRIAL STRUCTURE / Unknown 08/16/2015 2:19 PM EST 08/16/2015 2:19 PM EST ENDOCERVICAL STRUCTURE / Unknown 08/16/2015 2:19 PM EST 08/16/2015 2:19 PM EST ENDOMETRIAL STRUCTURE / Unknown 08/16/2015 2:19 PM EST 08/16/2015 2:19 PM EST Rosi Man MD PATHOLOGY/CYTOLO GY ORDERABLES Performing Organization Address City/[facility]/ZIP Co de Phone Number [facility] [place] [address] * Specimen to Pathology (NON-OR) (08/16/2015 2:19 PM EST) AP Specimen 08/16/2015 2:19 PM EST 08/16/2015 2:19 PM EST Narrative [facility] - 08/16/2015 2:19 PM EST Specimen requisition ordered. ??Separate Pathology report to follow Liz Munoz MD PATHOLOGY/CYTOLOGY O RDERVIN Performing Organization Address [facility] Co de Phone Number [facility] * Specimen to Pathology (NON-OR) (08/16/2015 2:19 PM EST) AP Specimen 08/16/2015 2:19 PM EST 08/16/2015 2:19 PM EST Narrative [facility] - 08/16/2015 2:19 PM EST Specimen requisition ordered. ??Separate Pathology report to follow Liz Munoz MD PATHOLOGY/CYTOLOGY O RDERABLES [facility] * Specimen to Pathology (NON-OR) (08/16/2015 2:19 PM EST) AP Specimen 08/16/2015 2:19 PM EST 08/16/2015 2:19 PM EST Narrative [facility] - 08/16/2015 2:19 PM EST Specimen requisition ordered. ??Separate Pathology report to follow Liz Munoz MD [facility]OLOGY[facility]CY[facility]OLOGY [facility] documented in this encounter Visit Diagnoses Diagnosis Cervical dysplasia Dysplasia of cervix, unspecified Abnormal uterine bleeding (AUB) Atypical squamous cells of undetermined significance on cytologic smear of cervix (ASC-US) Papanicolaou smear of cervix with atypical squamous cells of undetermined significance (ASC-US) documented in this encounter
--- OUTSIDE RECORDS SUMMARY | 2024-03-20 22:10 | XMS_ITS | Encounter Summary ---
Author Organization [facility] [place] [address] Care Team Providers Care Display Director Name Role Phone Unavailable Primary Care Provider Unavailabl e Reason for Visit * Reason Comments Establish Care * Consultation (Routine) - Closed Specialty Diagnoses / Procedures Referred By Contac t Referred To Contact Obstetrics and Gynecology Diagnoses HPV in female Atypical squamous cells of undetermined significance on cytologic smear of cervix (ASC-US) Latonia Acosta PA [facility] GENERAL [place] [address] Chanell Millan CNM [facility] OBSTETRICS [place] [address] Referral ID Status Reason Start Date Expiration Date V isits Requested Visits Authorized [id number] Closed Consult, Test & Treat 06/30/2015 06/29/2016 1 1 Encounter Details Date Type Department Care Team (Late st Contact Info) Description 07/23/2015 1:30 PM EST Office Visit Obstetrics [place] [address] Sherwin Casillas, [facility] GENER[facility] [place] [address] Rosi Man MD [facility] OBSTETRICS & [place] [address] Atypical squamous cells of undetermined significance on cytologic smear of cervix (ASC-US); Chronic pelvic pain in female Social History Tobacco Use Types [...] Sign Reading Time Taken Comments Blood Pressure 122/62 07/23/2015 12:42 PM EST Pulse 55 07/23/2015 12:42 PM EST Temperature 36.8 ??C (98.2 ??F) 07/23/2015 12:[address] Respiratory Rate 20 07/23/2015 12:42 PM EST Oxygen Saturation 99% 07/23/2015 12:42 PM EST Inhaled Oxygen Concentration - - Weight 60.8 kg (134 lb) 07/23/2015 12:42 PM EST Height 154.7 cm (5' 0.91) 07/23/2015 12:[address] Body Mass Index 25.4 07/23/2015 12:42 PM EST documented in this encounter Progress Notes * Edgar Ware MD - 07/26/2015 8:14 AM EST Yumiko De Leon was discussed with me at the time of the visit or immediately after the visit. The assessment and plan were formulated in discussion with me and I agree with them as documented. I havereviewed the history, physical exam, assessment and plan with the resident. EDGAR WARE MD * Rosi Marquez - 07/23/2015 12:49 PM EST Consult Visit Patient Name: Yumiko De Leon Date of : 1970 Primary Care Provider: MARGARET TAI MD Date of Visit: 07/25/2015 Reason for Visit: YUMIKO DE LEON is a 45 y.o. female who presents with a request for hysterectomy Subjective: Yumiko reports that she would like a hysterectomy because she keeps having abnormal pap smears and pain. Her pap history is as follows: 06/16/15 ASCUS, +HPV high risk other than 162013 NILM 2012 NILM Hx of LEEP in 2005 She has not had a colposcopy as of yet for her most recent pap. She is very anxious about being around for her children as she is a single mother and worries that she will go on to develop cancer. The patient also notes pain with her menses. This was worse when she was on HRT, but she did find relief from her hot flashes improved. However, she stopped her HRT in April due to the pain, worsening of her mood, and increase in headaches. She had a withdrawal period at that time which lasted for 3 weeks. She then felt symptomatically much improved. Her hot flashes have started back up with occasional night sweats, however, she is able to deal with these symptoms. She has not had a menses since May and finds that her menses are becoming more irregular. She also notes a pulling, tugging sensation in abdomen for the last year. It is present every day. She takes naproxen for her arthritis and this helps with the abdominal pain as well. She has had to increase how often she is taking it up to once or twice a day now. She has a history of endometriosis, treated with OCP in remote past. Patient's last menstrual period was 05/30/2015. OB History Para Term AB TAB SAB [...] ??? Myocardial infarct ??? Asthma ??? Fibromyalgia Past Surgical History Procedure Laterality Date ??? Laparoscopy 1987 Diagnostic laparoscopy for pelvic pain ??? Tubal ligation 1989 ??? Created by interface 1999 IVF (twin gestation) ??? Leep 06/06/06 WINIFRED ??? Pro upper gi endoscopy, biopsy 09/07/2011 EGD WITH BIOPSY performed by Desmond WHIPPLE at [facility] END[facility]COPY ??? Pro colonoscopy, biopsy 09/07/2011 COLONOSCOPY FLEXIBLE, WITH BX performed by Desmond WHIPPLE at [facility] ENDOSCOPY ??? Colposcopy 05/18/06 Family History Problem Relation Age of Onset ??? Ovarian Cancer Maternal Grandmother unclear history, perhaps stomach? Asthma Mother ??? Heart Disease Mother ??? Asthma Brother ??? Heart Disease Brother ??? Alcohol Abuse Neg Hx ??? Substance Abuse Neg Hx ??? Breast Cancer Maternal Aunt great aunts History Social History ??? Marital Status: Spouse Name: N/A Number of Children: 5 ??? 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 Smoking status: Never Smoker ??? Smokeless tobacco: Never Used ??? Alcohol Use: No ??? Drug Use: No Comment: denies h/o illicit drug use or abuse ??? Sexual Activity: None Comment: deferred Other Topics Concern ??? None Social History Narrative The patient has 5 children, 14 yo twin daughters and an autistic 25 yo son live with her currently.She has two older sons. Current Outpatient Prescriptions Medication Sig Dispense Refill ??? naproxen sodium (ANAPROX) 550 mg Tablet Take 1 tablet by mouth 2 times daily as needed. 60 tablet 11 ??? albuterol (PROVENTIL HFA;VENTOLIN HFA;PROAIR) 90 mcg/actuation HFA Aerosol Inhaler Inhale 2 puffs into the lungs every 4 hours as needed for Wheezing. Use with spacer 1 Inhaler 1 No current facility-administered medications for this visit. Allergies Allergen Reactions ??? Latex Rash ??? Azithromycin Anaphylaxis ??? Penicillins Anaphylaxis ??? Epinephrine Other (See Comments) fast heart rate ??? Influenza Virus Vaccines Declines based on prior fevers, fatigue. Objective: Filed Vitals: 07/23/15 1242 BP: 122/62 Pulse: 55 Temp: 36.8 ??C (98.2 ??F) Resp: 20 Height: 154.7 cm (5' 0.91) Weight: 60.782 kg (134 lb) SpO2: 99% General - well appearing, though anxious woman in NAD Remainder of exam deferred Ultrasound 05/18/15 Impression Ultrasound - Transvaginal - Summary 1. The uterus is heteregenous in echotextureand globular in contour suggestive of adenomyosis. Posterior fibroid is seen. No other structural abnormalities. 2. The endometrium is normal in size and morphology for mid cycle-- despite LMP in January --and measures 13.0 mm. 3. Bilateral ovaries are within normal limits. This study was performed transvaginally. Assessment/Plan: Yumiko De Leon is a 45 y.o. female with pelvic pain and an abnormal pap. -Colposcopy scheduled with EMB at same time -Will continue to discuss management options for pelvic pain once have results of colposcopy. It ispossible that some of her cyclic pelvic pain is related to the findings of adenomyosis on ultrasound and/or her history of endometriosis. Discussed with Dr. Ware. ROSI MARQUEZ MD, PGY3 documented in this encounter Plan of Treatment Upcoming Encounters Date Type Department Care Team (Late st Contact Info) Description 04/07/2024 3:20 PM EDT Office Visit Dermatology at [facility] [address] [place] [address] Dayanna Ramírez MD [facility] [address] [address] Scheduled Referrals Name Type Priority Associated Diagnoses Orde r Schedule Referral to Ob-Electronic Commerce Specialist Outpatient Referral Routine HPV in female Atypical squamous cells of undetermined significance on cytologic smear of cervix (ASC-US) Ordered: 06/30/2015 documented as of this encounter Visit Diagnoses Diagnosis Atypical squamous cells of undetermined significance on cytologic smear of cervix (ASC-US) Papanicolaou smear of cervix with atypical squamous cells of undetermined significance (ASC-US) Chronic pelvic pain in female Unspecified symptom associated with female genital organs documented in this encounter
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
--- OUTSIDE RECORDS SUMMARY | 2024-03-20 22:10 | XMS_ITS | Encounter Summary ---
Author Organization [facility] [place] [address] Care Team Providers Care Gear Shaper Set Up Operator Name Role Phone Unavailable Primary Care Provider Unavailabl e Reason for Visit * Reason Onset Date Comments Follow-up 08/10/2015 Encounter Details Date Type Department Care Team (Late st Contact Info) Description 08/10/2015 Telephone [place] [phone] Jessica Toscano, CARE MGR [facility] [place] [address] Follow-up Social History Tobacco Use Types Packs/Day [...] Miscellaneous Notes * Telephone Encounter - Jessica Toscano APRN - 08/10/2015 9:33 AM EST I called Yumiko to discuss follow up after her breast imaging was performed which showed benign findings. She is reassured by this and I am recommending PRN surgical follow up. She agrees with this plan and will call me in the future with any new breast concerns. She does note that she has many upcoming appointments for several health concerns which are a priority and she agrees to make an appt to see her PCP as well. Based on her risk status, I am recommending a mammogram and a CBE in one year. She agrees. documented in this encounter Plan of Treatment Upcoming Encounters Date Type Department Care Team (Late st Contact Info) Description 04/07/2024 3:20 PM EDT Office Visit Dermatology at [facility] [address] [place] [address] Dayanna Ramírez MD [facility] DR [facility] [place] [address] documented as of this encounter Visit Diagnoses Not on filedocumented in this encounter
--- OUTSIDE RECORDS SUMMARY | 2024-03-20 22:10 | XMS_ITS | Encounter Summary ---
Author Organization [facility] Address [facility] [place] [address] Care Team Providers Care Provider Service Representative Name Role Phone Unavailable Primary Care Provider Unavailabl e Reason for Visit * Reason Comments Annual Exam Encounter Details Date Type Department Care Team (Late st Contact Info) Description 09/14/2015 3:40 PM EST Office [place] [address] Latonia Acosta PA [facility] [place] [address] Edema of lower extremity, unspecified laterality; EDS (Suzy-Danlos syndrome); Fibromyalgia; Preventative health care Social History Tobacco Use Types Packs/Day Years [...] Sign Reading Time Taken Comments Blood Pressure 110/62 09/14/2015 3:48 PM EST Pulse 67 09/14/2015 3:48 PM EST Temperature 36.7 ??C (98 ??F) 09/14/2015 3:48 PM EST Respiratory Rate 14 09/14/2015 3:48 PM EST Oxygen Saturation 100% 09/14/2015 3:48 PM EST Inhaled Oxygen Concentration - - Weight 62.7 kg (138 lb 3.2 oz) 09/14/2015 3:48 P M EST Height 154.2 cm (5' 0.71) 09/14/2015 3:48 PM ES T Body Mass Index 26.36 09/14/2015 3:48 PM EST documented in this encounter Progress Notes * Latonia Acosta PA - 09/14/2015 4:07 PM EST Subjective: Patient ID: Yumiko Chang is a 45 y.o. female. Chief Complaint Patient presents with ??? Annual Exam HPI Yumiko Chang is presenting for her CPE. 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 Recommended to have an ECHO. States she was concerned she make have swollen lymph nodes. [place] a node on her L neck. Also thoughtshe felt a bump in her groin. She states she has full body pain, hard to get out of bed in the morning. Area wear she feels a tourniquet pressure sensation. Sometimes area sensitive to wind. Told in the past she has FM but was unable to tolerate the meds: cymbalta, lyrica, gabapentin, amitriptyline, flexeril, celexa. Took each one for only a few days and then would develop a reaction. Now taking naproxen for pain. Endorses BLE edema. Can get sock line. Better in morning and worse by end of day. Denies salt. A lot of stress, single mother of 5 kids, one child autistic. Patient Active Problem List Diagnosis Code ??? Abnormal Reproductive Tract Bleeding ??? Fibromyalgia ??? GERD ??? PTSD (post-traumatic stress disorder) F43.10 ??? Stress and urge incontinence ??? Breast pain N64.4 ??? NEENA (juvenile idiopathic arthritis) M08.90 ??? Fibrocystic breast N60.19 ??? Healthcare maintenance Z00.00 ??? Hypermobile joints M25.20 ??? H/O sciatica Z86.69 ??? Disc disease, degenerative, cervical M50.30 ??? 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 Abnormal Pap smear of cervix R87.619 ??? Asthma J45.909 ??? Myocardial infarct I21.3 ??? Uterine cancer C55 ??? Rheumatoid arthritis M06.9 ??? Neuropathic pain M79.2 ??? Cervicalgia M54.2 ??? Headache(784.0) R51 ??? 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 Review of Systems PHQ-9 QUESTIONNAIRE (AMB) 09/09/2015 PHQ - 9 Score (Clinic) 0 (No Depression) Little interest or pleasure (Clinic) Not at all Down, depressed, hopeless (Clinic) Not at all Trouble sleeping (Clinic) - Tired or no energy (Clinic) - Poor appetite or overeating (Clinic) - Feeling like a failure (Clinic) - Trouble concentrating (Clinic) - Would be better off (Clinic) - How difficult are the problems (Clinic) - Objective: BP 110/62 mmHg Pulse 67 Temp(Src) 36.7 ??C (98 ??F) (Oral) Resp 14 Ht 154.2 cm (5' 0.71) Wt 62.687 kg (138 lb 3.2 oz) BMI 26.36 kg/m2 SpO2 100% LMP 05/30/2015 Patient reported measures: Pain:9 Physical Health:[place]: PHQ-9 QUESTIONNAIRE SCORE ONLY (AMB) 09/09/2015 PHQ - 9 Score (Clinic) 0 (No Depression) Wt Readings from Last 3 Encounters: 09/14/15 62.687 kg (138 lb 3.2 oz) 09/13/15 62.506 kg (137 lb 12.8 oz) 09/09/15 62.143 kg (137 lb) Physical Exam Constitutional: She is oriented to person, place, and time. She appears well- developed and well-nourished. HENT: Head: Normocephalic and atraumatic. Right Ear: External ear normal. Left Ear: External ear normal. Nose: Nose normal. Mouth/Throat: Oropharynx is clear and moist. Eyes: Conjunctivae and EOM are normal. Pupils are equal, round, and reactive to light. Neck: Normal range of motion. Neck supple. Cardiovascular: Normal rate and regular rhythm. Pulmonary/Chest: Effort normal and breath sounds normal. No breast tenderness. No masses palpated. No nipple discharge. No skin changes observed. No axillary or supraclavicular adenopathy. Abdominal: Soft. Bowel sounds are normal. Musculoskeletal: Normal range of motion. Multiple tender points Nonpitting edema to BLE Pulses intact Lymphadenopathy: Head (right side): No submental, no submandibular, no tonsillar, no preauricular, no posterior auricular and no occipital adenopathy present. Head (left side): No submental, no submandibular, no tonsillar, no preauricular, no posterior auricular and no occipital adenopathy present. She has cervical adenopathy. Right cervical: No superficial cervical, no deep cervical and no posterior cervical adenopathy present. Left cervical: Posterior cervical (small, shotty node) adenopathy present. No superficial cervical and no deep cervical adenopathy present. She has no axillary adenopathy. Right: No inguinal, no supraclavicular and no epitrochlear adenopathy present. Left: No inguinal, no supraclavicular and no epitrochlear adenopathy present. Neurological: She is alert and oriented to person, place, and time. She has normal reflexes. Skin: Skin is warm and dry. Psychiatric: She has a normal mood and affect. Her behavior is normal. Assessment and Plan: Yumiko was seen today for annual exam. Diagnoses and all orders for this visit: Edema of lower extremity, unspecified laterality - Mild nonpitting edema present today. - Asked her to stop NSAIDs. Elevate legs - Check labs below. If okay would start low dose diuretic Orders: - Microalbumin, urine, random; Future - Comprehensive metabolic panel (non-fasting); Future - CBC (with Diff); Future - TSH; Future EDS (Suzy-Danlos syndrome) - Per geneticists guideline ordered ECHO to r/o valvular disease or aortic dilation Fibromyalgia -Chronic joint pain/Multiple tender points/Fatigue, gastrointestinal dysfunction, anxiety/depression. -Reviewed handout on myofascial pain syndrome and treatment. -Patient has tried multiple medications for a few days and states she has been unable to tolerate. Asked if she would be willing to re-try a medication, she declines at this juan carlos. - Discussed starting aquatic therapy and walking program. She will look into this - Also feel she would benefit from counseling given degree of stress Preventative health care - Mammo and Pap - Declines flu shot - Work on exercise as above documented in this encounter Plan of Treatment Upcoming Encounters Date Type Department Care Team (Late st Contact Info) Description 04/07/2024 3:20 PM EDT Office Visit Dermatology at [facility] [address] [place] [address] Dayanna Ramírez MD [facility] [address] [facility] [place] [address] documented as of this encounter Procedures Procedure Name Priority Date/Time Associated Diagnosis Comments U ALBUMIN/CRE RATIO Routine 09/14/2015 5 :48 PM EST Edema of lower extremity, unspecified laterality HEMOGRAM Routine 09/14/2015 5:43 PM EST Edema of lower extremity, unspecified laterality DIFFERENTIAL, AUTOMATED Routine 09/14/2015 5:43 PM EST Edema of lower extremity, unspecified laterality CBC (WITH DIFF) Routine 09/14/2015 5:43 PM EST Edema of lower extremity, unspecified laterality TSH Routine 09/14/2015 5:43 PM EST Edema of lower extremity, unspecified laterality COMPREHENSIVE METABOLIC PANEL Routine 09/14/2015 5:43 PM EST Edema of lower extremity, unspecified laterality documented in this encounter Results * ECHO COMPLETE (09/22/2015 1:04 PM EST) EF 60 HEARTLAB SYSTEM Anatomical Region Laterality Modality Other 09/22/2015 Narrative 09/22/2015 1:32 PM EST Procedure: ?Transthoracic Echocardiogram Patient: ?MOISES SURESHEA R ?(Age): 1970(45y) Med Rec#: ? [id number] ?Sex: ?F ? Site Loc: ? [facility] ?Ht / Wt: ??154.94(cm)/62(k Pt. Loc: ?Echo Lab ?BSA: ?1.61 Study Date: ?? 09/22/2015 ?Pt. Type: Outpatient Tape: ? Referring: Luis Hackett Reading: Dre Martin ([id number]) Contour Stitcher: Manda Tobar Diagnosis: *ICD-10-PCS Localized edema (R60.0) *ICD-10-PCS Suzy-Danlos syndrome (Q79.6) CPT Codes: *Echo Full (33461) *Spectral Doppler (40772) *Color Doppler (57336) BP: ? 123/73 SUMMARY: 1. Left ventricular [...] E-wave Vmax ?1.1 ?m/sec ? MV deceleration khxp151.1 ?msec ? MV A-wave Vmax ?0.6 ?m/sec [...] ? Mid-Inferior ?Normal ? Mid-Inferoseptal ?Normal ? [place]-Septal ? Normal ? [place]-Anterior ? Normal ? [place]-Lateral ?Normal ? [place]-Inferior ? Normal ? [place]-Tip ?Normal ? This report has been electronically signed by: Dre Martin MD ? 09/22/2015 13:31:27 Images reviewed and interpretation verified [facility] Cardiac Ultrasound Laboratory Procedure Note Dre Martin MD - 09/22/2015 Procedure: Transthoracic Echocardiogram Patient: MOISES Nava (Age): 1970(45y) Med Rec#: [id number] Sex: F [place] Loc: [facility] Ht / Wt: 154.94(cm)/62(k Pt. Loc: Echo Lab BSA: 1.61 Study Date: 09/22/2015 Pt. Type: Outpatient Tape: Referring: Luis Hackett Reading: Dre Martin ([id number]) Contour Stitcher: Manda Tobar Diagnosis: *ICD-10-PCS Localized edema (R60.0) *ICD-10-PCS Suzy-Danlos syndrome (Q79.6) CPT Codes: *Echo Full (05700) *Spectral Doppler (48002) *Color Doppler (28992) BP: 123/73 SUMMARY: 1. Left ventricular chamber [...] MV E-wave Vmax 1.1 m/sec MV deceleration [id number] msec MV A-wave Vmax 0.6 m/sec MV [...] Normal Mid-Posterolateral Normal Mid-Inferior Normal Mid-Inferoseptal Normal [place]-Septal Normal [place]-Anterior Normal [place]-Lateral Normal [place]-Inferior Normal [place]-Tip Normal This report has been electronically signed by: Dre Martin MD 09/22/2015 13:31:27 Images reviewed and interpretation verified [facility] Cardiac Ultrasound Laboratory Luis Hackett MD ECHO ORDERABLES * Microalbumin, urine, random (09/14/2015 5:48 PM EST) Creatinine, Urine 60 mg/dL CE RNER MILLENNIUM Albumin, Urine <3.0 mg/L CERNE R MILLENNIUM Albumin / Creatinin Ratio, Urine <5 mcg/mg Cr CERNER MILLENNIUM Comment: Reference Range* Random collection (mcg/mg creatinine) Normal ?<30 Microalbuminuria ?? 30 - 300 Clinical Albuminuria ?? >300 *[place] [employer]. Diabetic Nephropathy. Diabetes Care 1997;(Suppl 1):S24-S27 Exercise within 24 hour, infection, fever, CHF, marked hyperglycemia, and marked hypertension may elevate urinary albumin excretion over baseline values. Urine specimen (specimen) 09/14/2015 5:48 PM EST 09/14/2015 6:04 PM EST Narrative Resulting Agency Comment Spec In Lab Luis Hackett MD URINE ORDERABLES CERNER MILLENNIUM * Differential, Automated (09/14/2015 5:43 PM EST) Neutrophil % 58.7 % CERNER MILLENNIUM Neutrophil Absolute 4.87 1.50 - 6.30 x10(3)/mcL CERNER MILLENNIUM Lymph % 32.5 % CERNER MILLENNIUM Lymphocytes Abs 2.7 1.0 - 3.6 x10(3)/mcL CERNER MILLENNIUM Monocyte % 6.9 % CERNER MILLENNIUM Monocyte Abs 0.6 0.2 - 1.0 x10(3)/mcL CERNER MILLENNIUM Eos % 1.3 % CERNER MILLENNIUM Eosinophils Abs 0.1 0.0 - 0.5 x10(3)/mcL CERNER MILLENNIUM Basophil % 0.4 % CERNER MILLENNIUM Baso Absolute 0.0 0.0 [...] 0.05 x10(3)/mcL CERNER MILLENNIUM Blood specimen (specimen) 09/14/2015 5:43 PM EST 09/14/2015 5:53 PM EST Narrative Resulting Agency Comment Spec In Lab Luis Hackett MD HEMATOLOGY ORDERABLE S Performing Organization Address [facility]/ZIP Co de Phone Number MADELINE SANTILLANENNIUM * Hemogram (09/14/2015 5:43 PM EST) Pathologist [facility] White Blood Cell 8.3 4.0 - 10.0 x10(3)/mcL CERNER MILLENNIUM Red Blood Cell 4.45 3.93 - 5.22 x10(6)/mcL CERNER MILLENNIUM Hemoglobin 12.1 11.2 - 15.7 gm/dL CERNER MILLENNIUM Hematocrit 36.0 34.0 - 45.0 % CERNER MILLENNIUM Mean Cell Volume 80.9 79.0 - 94.0 fL CERNER MILLENNIUM Mean Cell Hemoglobin 27.2 26.6 - 32.2 pg CERNER MILLENNIUM Mean Cell Hemoglobin Concentration 33.6 32.0 - 36.5 gm/dL CERNER MILLENNIUM Platelet 256 145 - 370 x10(3)/mcL CERNER MILLENNIUM RDW Standard Deviation 38.7 35.0 - 46.0 fL CERNER MILLENNIUM RDW coefficient of variation 13.2 10.9 - 14.4 % CERNER MILLENNIUM Mean Platelet Volume 9.9 9.0 - 12.0 fL CERNER MILLENNIUM Blood specimen (specimen) 09/14/2015 5:43 PM EST 09/14/2015 5:53 PM EST Narrative Resulting Agency Comment Spec In Lab Luis Hackett MD HEMATOLOGY ORDERABLE S MADELINE PARKSIUM * TSH (09/14/2015 5:43 PM EST) Thyroid Stimulating Hormone 1.20 0.27 - 4.20 mcIU/mL CERNER MILLENNIUM Blood specimen (specimen) 09/14/2015 5:43 PM EST 09/14/2015 5:53 PM EST Narrative Resulting Agency Comment Spec In Lab Luis Hackett MD CHEMISTRY ORDERABLES [facility] TYRELLEN[facility] * Comprehensive metabolic panel (non-fasting) (09/14/2015 5:43 PM EST) Glucose 85 65 - 199 mg/dL CERNER MILLENNIUM Comment:Diabetes: >=200 mg/d L plus symptoms Blood Urea Nitrogen 9 8 - 18 mg/dL CERNER MILLENNIUM Creatinine 0.81 0.70 - 1.20 mg/dL CERNER MILLENNIUM Comment: Please note that the pediatric reference intervals supplied above were not validated at [facility]. Results from pediatric patients should be interpreted in conjunction to the patient's age, height and muscle mass. Sodium 141 135 - 145 mmol/L CERNER MILLENNIUM Potassium 4.2 3.5 - 5.0 mmol/L CERNER MILLENNIUM Comment: Please note: ??Patients with WBC >100,000 may have falsely elevated Potassium levels. ??For accurate Potassium quantification in these patients send serum separator tube (gold top) for subsequent determinations. ??Contact the Clinical Chemistry Laboratory if there are any questions. Chloride 103 98 - 107 mmol/L CERNER MILLENNIUM Carbon Dioxide 27 22 - 31 mmol/L CERNER MILLENNIUM Anion Gap 11 5 - 15 mmol/L CERNER MILLENNIUM Calcium 9.8 8.5 - 10.5 mg/dL CERNER MILLENNIUM Protein, Total 7.3 6.1 - 8.0 gm/dL CERNER MILLENNIUM Albumin 4.6 3.2 - 5.2 gm/dL CERNER MILLENNIUM Aspartate Aminotransferase 20 0 - 30 unit/L CERNER MILLENNIUM Alanine Aminotransferase 10 0 - 30 unit/L CERNER MILLENNIUM Alkaline Phosphatase 62 40 - 104 unit/L CERNER MILLENNIUM Bilirubin, Total 1.0 0.2 - 1.3 mg/dL CERNER MILLENNIUM Bilirubin, Direct 0.2 0.0 - 0.3 mg/dL CERNER MILLENNIUM Est Glomerular Filtration Rate >60 >=60 CERNER MILLENNIUM Comment: This estimated GFR (eGFR) value was [...] the following links into your internet browser. [email or web address] Blood specimen (specimen) 09/14/2015 5:43 PM EST 09/14/2015 5:53 PM EST Narrative Resulting Agency Comment Spec In Lab Luis Hackett MD CHEMISTRY ORDERABLES [facility] documented in this encounter Visit Diagnoses Diagnosis Edema of lower extremity, unspecified laterality EDS (Suzy-Danlos syndrome) Suzy-Danlos syndrome Fibromyalgia Mylagia and myositis, unspecified Preventative health care Routine general medical examination at a health care facility Edema of lower extremity, unspecified laterality EDS (Suzy-Danlos syndrome) Suzy-Danlos syndrome documented in this encounter
--- OUTSIDE RECORDS SUMMARY | 2024-03-20 22:10 | XMS_ITS | Encounter Summary ---
Author Organization [facility] [place] [address] Care Team Providers Care Territory Account Executive Name Role Phone Unavailable Primary Care Provider Unavailabl e Reason for Visit * Consultation (Routine) - Closed Specialty Diagnoses / Procedures Referred By Diego ramos Referred To Contact Radiology Diagnoses Abnormal cervical Papanicolaou smear, unspecified abnormal pap finding HPV in female Procedures US Transvaginal Non OB US Pelvis Complete Sherwin Casillas [facility] [address] [facility] [place] [address] [place] [address] Referral ID Status Reason Start Date Expiration Date V isits Requested Visits Authorized [id number] Closed Specialty Service Requested 04/28/2015 04/27/2016 1 1 Encounter Details Date Type Department Care Team (Latest Contact Info) Description 05/18/2015 11:30 AM EDT - 05/18/2015 4:54 PM EDT Hospital En[place] [address] Sherwin Casillas [facility] [address] [facility] [place] [address] Abnormal cervical Papanicolaou smear, unspecified abnormal pap finding; HPV in female Discharge Disposition: Home Social History Tobacco Use [...] at [facility] [address] [place] [address] Dayanna Ramírez MD [facility] DR [facility] [address] documented as of this encounter Procedures Procedure Name Priority Date/Time Associated Diagnosis Comments US TRANSVAGINAL NON OB Routine 05/18/2015 12:46 PM EDT Abnormal cervical Papanicolaou smear, unspecified abnormal pap finding HPV in female documented in this encounter Results * US Transvaginal Non OB (05/18/2015 12:46 PM EDT) Anatomical Region Laterality Modality Ultrasound 05/18/2015 12:3 7 PM EDT Impressions 05/18/2015 1:31 PM EDT Impression Ultrasound - Transvaginal - Summary 1. The uterus is heteregenous in echotextureand globular in contour suggestive of adenomyosis. Posterior fibroid is seen. ??No other structural abnormalities. 2. The endometrium is normal in size and morphology for mid cycle-- despite LMP in January --and measures 13.0 mm. 3. Bilateral ovaries are within normal limits. This study was performed transvaginally. I ??viewed the images and agree with the above interpretation. ?Carole Nieto MD Electronically Signed Final Report ?? 05/18/2015 01:31 pm Narrative 05/18/2015 1:31 PM EDT Gynecological Report ? (Signed Final 05/18/2015 01:31 pm) Patient Info ID #: ? [id number] ?: ??[birth year] (45 yrs) Name: ? YUMIKO LAUREANOTON ? Visit Date: 05/18/2015 12:37 pm Performed By Performed By: ? Millie Marquez RDMS Attending: ?Faizan RIVERA, Carole Joseph Associate: ?Mary Guzman MD Referred By: ?SHERWIN CASILLAS DO Service(s) Provided ??UTV - Ultrasound - Transvaginal - [id number] ? [id number] Indications ??recommended by esl instructional assistant r/o structural abnormalities Comparison US Sonohystergram ------- History ------- Age: ?? 45 Menses: ?Last menstral periord in January ?2014 Hx of Cancer Uterine cancer per patient in 2005. Treated with 2 injections. ------ Uterus ------ Position: ?? Anteverted Size (cm) ?L: ??9.64 ?W: ?? 5.59 ? H: ??5.43 Description: ?? Heterogeneous echotexture ------ Myomas ------ ??Site ? L(cm) ? W(cm) ? D(cm) ? Location ??Posterior ?1.3 ? 1.4 ? 1.4 ??Blood Flow ?RI ? PI ? Comments Endometrium Endometrium: ?Normal appearance Thickness(mm): ?13.0 Right Ovary Status: ?? Visualized Size (cm) ?L: ??3.27 ?W: ?? 2.27 ? H: ??1.86 Vol (ml): ?7.2 Morphology: ?Normal appearance Left Ovary Status: ?? Visualized Size (cm) ?L: ??2.35 ? H: ??1.7 Morphology: ?Normal appearance Procedure Note Carole Ashford MD - 05/18/2015 Gynecological Report (Signed Final 05/18/2015 01:31 pm) Patient Info ID #: [id number] : [birth year] (45 yrs) Name: YUMIKO DE LEON Visit Date: 05/18/2015 12:37 pm Performed By Performed By: Millie Marquez RDMS Attending: Carole Gloria MD Associate: Mary Guzman MD Referred By: SHERWIN CASILLAS DO Service(s) Provided UTV - Ultrasound - Transvaginal - [id number] Indications recommended by esl instructional assistant r/o structural abnormalities Comparison US Sonohystergram ------- History ------- Age: 45 Menses: Last menstral periord in January 2015 Hx of Cancer Uterine cancer per patient in 2005. Treated with 2 injections. ------ Uterus ------ Position: Anteverted Size (cm) L: 9.64 W: 5.59 H: 5.43 Description: Heterogeneous echotexture ------ Myomas ------ Site L(cm) W(cm) D(cm) Location Posterior 1.3 1.4 1.4 Blood Flow RI PI Comments Endometrium Endometrium: Normal appearance Thickness(mm): 13.0 Right Ovary Status: Visualized Size (cm) L: 3.27 W: 2.27 H: 1.86 Vol (ml): 7.2 Morphology: Normal appearance Left Ovary Status: Visualized Size (cm) L: 2.35 H: 1.7 Morphology: Normal appearance IMPRESSION Impression Ultrasound - Transvaginal - Summary 1. The uterus is heteregenous in echotextureand globular in contour suggestive of adenomyosis. Posterior fibroid is seen. No other structural abnormalities. 2. The endometrium is normal in size and morphology for mid cycle-- despite LMP in January --and measures 13.0 mm. 3. Bilateral ovaries are within normal limits. This study was performed transvaginally. I viewed the images and agree with the above interpretation. Carole Nieto MD Electronically Signed Final Report 05/18/2015 01:31 pm Sherwin BYRNE US PELVIC ORDERA BLES documented in this encounter Visit Diagnoses Diagnosis Abnormal cervical Papanicolaou smear, unspecified abnormal pap finding HPV in female Human papillomavirus in conditions classified elsewhere and of unspecified site documented in this encounter
--- OUTSIDE RECORDS SUMMARY | 2024-03-20 22:10 | XMS_ITS | Encounter Summary ---
Author Organization [facility] [place] [address] Care Team Providers Care Web Marketing Assistant Name Role Phone Unavailable Primary Care Provider Unavailabl e Encounter Details Date Type Department Care Team (Late st Contact Info) Description 08/02/2015 Orders [place] [address] Jessica Toscano APRN [facility] [place] [address] Left breast mass (Primary Dx) Social History Tobacco Use Types [...] 3:20 PM EDT Office Visit Dermatology at [facility] [address] [place] [address] Dayanna Ramírez MD [facility] [place] [address] documented as of this encounter Results * Mammo Breast Us [...] AM Solo Em MD IMG MAMMO ORDERABLES * Mammo Diag [place] Bilateral (08/03/2015 2:34 PM EST) Anatomical Region Laterality Modality Breast Bilateral Mammography Narrative 08/05/2015 7:25 AM EST DIAGNOSTIC [...] this encounter Visit Diagnoses Diagnosis Left breast mass- Primary Lump or mass in breast Left breast mass Lump or mass in breast Left breast mass Lump or mass in breast documented in this encounter
--- OUTSIDE RECORDS SUMMARY | 2024-03-20 22:10 | XMS_ITS | Encounter Summary ---
Author Organization [facility] [place] [address] Care Team Providers Care Back Tender Paper Machine Name Role Phone Unavailable Primary Care Provider Unavailabl e Encounter Details Date Type Department Care Team (Late st Contact Info) Description 07/23/2015 Orders [place] [address] Dorina Hardin Social History Tobacco Use Types Packs/Day Years [...] [facility] [address] [place] [address] Dayanna Ramírez MD [facility] [place] [address] documented as of this encounter Visit Diagnoses Not on filedocumented in this encounter
--- OUTSIDE RECORDS SUMMARY | 2024-03-20 22:10 | XMS_ITS | Encounter Summary ---
Author Organization [facility] Address [facility] [place] [address] Care Team Providers Care Finance Professor Name Role Phone Unavailable Primary Care Provider Unavailabl e Encounter Details Date Type Department Care Team (Late st Contact Info) Description 06/16/2015 11:30 AM EST Office Visit Physical Therapy at [facility] [address] [place] [address] Stacy Villa, PT [facility] [address] PHYSICAL MEDICINE & [place] [address] Cervicalgia Social History Tobacco Use Types Packs/Day [...] Progress Notes * Stacy Villa, PT - 06/16/2015 11:26 AM EST Physical Therapy Progress Note Total treatment time: 30 minutes Total timed code treatment: 30 minutes Follow up visit for patient with 1. Cervicalgia S: Patient reports that she is doing a bit better in her body awareness but her neck is still tightand she got a headset which helps at work O: Therex: Strength/Endurance/ROM (98167) 15 min UBE L=2 4min ?? Rows with green band x10 shoulder [...] 3:20 PM EDT Office Visit Dermatology at [facility] [address] [place] [address] Dayanna Ramírez MD [facility] [address] [place] [address] documented as of this encounter Visit Diagnoses Diagnosis Cervicalgia documented in this encounter
--- OUTSIDE RECORDS SUMMARY | 2024-03-20 22:10 | XMS_ITS | Encounter Summary ---
Author Organization [facility] Address [facility] [place] [address] Care Team Providers Care Transport Aircrewman Name Role Phone Unavailable Primary Care Provider Unavailabl e Encounter Details Date Type Department Care Team (Latest Contact Info) Description 08/03/2015 1:42 PM EST - 08/03/2015 11:59 PM EST Hospital [place] [address] Solo Em MD [facility] [place] [address] Left breast mass Discharge Disposition: Home Social [...] at [facility] [address] [place] [address] Dayanna Ramírez MD [facility] [address] [place] [address] documented as of this encounter Procedures Procedure Name Priority Date/Time Associated Diagnosis Comments MAMMO 2D DIGITAL DIAG COLBY WITH CAD BILATERAL Routine 08/03/2015 2:34 PM EST Left breast mass documented in this encounter Results * Mammo Diag Colby Bilateral (08/03/2015 2:34 [...]
--- OUTSIDE RECORDS SUMMARY | 2024-03-20 22:10 | XMS_ITS | Encounter Summary ---
Author Organization [facility] [place] [address] Care Team Providers Care Social Sciences Department Chair Name Role Phone Unavailable Primary Care Provider Unavailabl e Reason for Visit * Reason Onset Date Comments Medication Refill 03/05/2015 Encounter Details Date Type Department Care Team (Late st Contact Info) Description 03/05/2015 Refill [place] [address] Iker Montgomery MD [facility] [place] [address] NEENA (juvenile idiopathic arthritis) Social History Tobacco [...] [facility] [address] [place] [address] Dayanna Ramírez MD [facility] [address] [place] [address] documented as of this encounter Visit Diagnoses Diagnosis NEENA (juvenile idiopathic arthritis) Other specified inflammatory polyarthropathies documented in this encounter
--- OUTSIDE RECORDS SUMMARY | 2024-03-20 22:10 | XMS_ITS | Encounter Summary ---
Author Organization [facility] [address] Care Team Providers Care Electroplater Automatic Name Role Phone Unavailable Primary Care Provider Unavailabl e Reason for Visit * Reason Onset Date Comments Results 03/05/2015 Encounter Details Date Type Department Care Team (Late st Contact Info) Description 03/05/2015 Telephone [place] [phone] Shahida Bobby Results Social History Tobacco Use Types Packs/Day [...] Telephone Encounter - Rabia Portillo RN - 03/08/2015 2:36 PM EDT Patient looking for recent x-ray results. Phoned patient and informed her that sent elva letter two days ago and that she should be getting it soon. Patient asked me to read contents of the letter from 03/05/15 which I did. Patient voiced not questions at this time. * Telephone Encounter - Shahida Bobby - 03/08/2015 2:17 PM EDT Message: Patient is calling back to see status of results if someone could please call her back Caller and relationship (if other than patient-full name): Yumiko Best time to call back: anytime Ok to leave a message: [ Yes ] Ok to send Sensitive Object message [No] Offered Appointment: No Attempted to contact Nurse [ No] * Telephone Encounter - Shahida Bobby - 03/05/2015 11:50 AM EDT Requesting test results: Patient is calling regarding results from her x-rays done on 03/03/15 Type of Test: X-ray Date of Test: 03/03/15 [place] Test [place] [facility] Who ordered the Test: Sherwin Casillas Caller and relationship (if other than patient-full name): Yumiko Best time to call back: anytime Ok to leave a message: [ Yes] Ok to send Sensitive Object message [No] documented in this encounter Plan of Treatment Upcoming Encounters Date Type Department Care Team (Late st Contact Info) Description 04/07/2024 3:20 PM EDT Office Visit Dermatology at [address] [place] [address] Dayanna Ramírez MD [facility] [place] [address] documented as of this encounter Visit Diagnoses Not on filedocumented in this encounter
--- OUTSIDE RECORDS SUMMARY | 2024-03-20 22:10 | XMS_ITS | Encounter Summary ---
Author Organization [facility] Address [facility] [place] [address] Care Team Providers Care Keyseater Operator Name Role Phone Unavailable Primary Care Provider Unavailabl e Reason for Visit * Reason Comments Follow-up Pap Encounter Details Date Type Department Care Team (Late st Contact Info) Description 06/16/2015 8:30 AM EST Office [place] [address] Latonia Acotsa PA [facility] [place] [address] Abnormal cervical Papanicolaou smear, unspecified abnormal pap finding; Uterine leiomyoma, unspecified location Social History Tobacco Use Types Packs/Day Years [...] Sign Reading Time Taken Comments Blood Pressure 103/68 06/16/2015 8:32 AM EST Pulse 64 06/16/2015 8:32 AM EST Temperature 36.6 ??C (97.9 ??F) 06/16/2015 8:32 AM ES T Respiratory Rate 16 06/16/2015 8:32 AM EST Oxygen Saturation 100% 06/16/2015 8:32 AM EST Inhaled Oxygen Concentration - - Weight 60.5 kg (133 lb 6.4 oz) 06/16/2015 8:32 A M EST Height 155.3 cm (5' 1.14) 06/16/2015 8:32 AM ES T Body Mass Index 25.09 06/16/2015 8:32 AM EST documented in this encounter Patient Instructions * Patient Instructions* Latonia Acosta PA - 06/16/2015 9:13 AM EST Please make a [facility]SEM[employer] appointment with Chanell Millan documented in this encounter Progress Notes * Latonia Acosta PA - 06/16/2015 8:46 AM EST Subjective: Patient ID: Yumiko Chang is a 45 y.o. female. HPI Chief Complaint Patient presents with ??? Follow-up Pap Yumiko Chang is a 45 yo female presenting for pap smear. She states she has a hx of abnormal pap smear and HPV + pap smears. She has had cryotherapy and LEEP procedure in the past. Typically has pap smears yearly. She has strong FHX of ovarian and cervical CA. She states at last visit she discussed with her PCP weaning off HRT. She had been on oral estrace for 1 years. She weaned off in 2 weeks. Has had a withdrawal period lasting several weeks. Not currently having any bleeding or discharge. She feels less bloating, pressure since stopping the hormones. No hot flashes or night sweats now that she has stopped the hormones. She had TVUS which showed uterine fibroids and possible adenomyosis. She has had surgery for fibroids in the past. At this point she is considering a hysterectomy d/t pelvic pain, bloating, and FHX. She states she had discussed this with her last [employer]ING ASSEMBLER but they never followed through at that time. Review of Systems Objective: Physical Exam Gen: Well appearing, well developed and in no acute distress Eyes: EOMI, normal conjunctiva and sclera Gu: Normal external genitalia. Vaginal tse are pink, moist, and rugated. The cervix is without lesions. On bimanual exam, no CMT, no uterine enlargement, no adnexal masses. Neuro: alert and oriented x 3 Psych: appropriate mood and affect Assessment and Plan: Assessment: Yumiko Chang is a 45 yo female with hx of abnormal pap smears, uterine fibroids, hx of heavy menses/pain/bloating for which she started oral HRT. She felt the hormone worsened the symptoms and has now weaned off the estrace. Recent TVUS reported uterine fibroid and possible adenomyosis. Given her symptoms and FHx of ovarian and cervical CA she would like to discuss elective hysterectomy. Plan: Pap w/ HPV collected today. (call patient with results, do not mail). Refer to WATCH HAIRSPRING ASSEMBLER to discuss hysterectomy or alternate treatment options documented in this encounter Plan of Treatment Upcoming Encounters Date Type Department Care Team (Late st Contact Info) Description 04/07/2024 3:20 PM EDT Office Visit Dermatology at [facility] [address] [place] [address] Dayanna Ramírez MD [facility] [place] [address] documented as of this encounter Procedures Procedure Name Priority Date/Time Associated Diagnosis Comments HPV Routine 06/16/2015 9:13 AM EST [employer] CYTOLOGY INTERPRETATION Routine 06/16/2015 9:13 AM EST [employer] CYTOLOGY FINAL REPORT Routine 06/16/2015 9:13 AM EST CYTOPATHOLOGY GYNECOLOGICAL Routine 06/16/2015 9:13 AM EST Abnormal cervical Papanicolaou smear, unspecified abnormal pap finding documented in this encounter Results * [facility] Final Report (06/16/2015 9:13 AM EST) [facility] Final Report The signing pathologist has (i) examined the relevant preparation(s) for the specimen(s) and (ii) rendered or confirmed the diagnosis(es). Accession Number: [id number] ?Location: . ? [facility] Final DIAGNOSIS Epithelial Cell Abnormality Atypical Squamous Cells of Undetermined Significance (ASC-US). For consensus guidelines for the management of women with abnormal cervical cancer screening tests, please see: ??http://www.asc cp.org/consensus /cytological.sht ml These guidelines were published in the [place] Journal of Obstetrics and Gynecology (2007;197(4):346 -355). 06/25/15 ?? Screened by: ??REP ??LEATHA 06/29/15 ?? Verified by: ??Vel RIVERA, Kirt Wu - Pathologist DISCUSSION Predominance of coccobacilli consistent with shift in vaginal jitendra. Please also see concurrent HPV test result. STATEMENT OF ADEQUACY Specimen submitted is satisfactory. Endocervical component present. CLINICAL INFORMATION HPV Option: ? Concurrent HPV and Pap Preparation: ?Liquid Based Pap Specimen Source: ?Cervical/Endoc ervical LMP: ?Jun 2015 Hormones?: ?No Hysterectomy?: ?No ?: ?No ?: ?No I.U.D.?: ?No Pelvic Radiation: ? No Prior [employer]ER Therapy?: ? Cryotherapy Hist Abnl Pap/Biopsy?: ??Yes, history of previous abnormal Pap Hist of HPV Vaccine?: ?? No Hist of Smoking?: ? No Hist of CAMERON exposure?: ??No Clinical Data, Significant Therapy and Clinical Impression: ?? _ This Pap Test has been evaluated with the assistance of the CapiotaPrep Pap Test Imaging System. Note: The Pap test is a screening test for cervical cancer with an inherent false-negative rate dependent upon several variables. ??For further information please contact the [facility] Laboratory. Reference: ??Jacquelyn VERDUGO. ??Vocational Instructor of Pap Smear Results. ??In: ??Felipe BS, Bob HH, ed. ??The Pap Smear. ??[place]: ??Suraj, 2002: ??71-77. [facility] 06/16/2015 9:13 AM EST Latonia MORA PATHOLOGY/CYTOL OGY ORDERABLES [facility] * (ABNORMAL) [employer] Cytology Interpretation (06/16/2015 9:13 AM EST) [facility] Interpretation ASC-US(A) [facility] Comment:[facility] Final R eport [facility] Comment Present [facility] Endocervical Component Present [facility] AP Specimen 06/16/2015 9:13 AM EST 06/16/2015 9:39 AM EST Kirt Crowder MD PATHOLOGY/CYTOLOGY ORDERABLES Performing Organization Address [facility]/ZIP Co de Phone Number [facility] * (ABNORMAL) HPV (06/16/2015 9:13 AM EST) HPV16 NEGATIVE [facility] HPV 18 NEGATIVE [facility] HPV Other HR POSITIVE(A) [facility] HPV Interpretation POSITIVE for high-risk HPV* (High risk type other than types 16 or 18): It is recommended that patients with ASCUS cytology and a positive test for high-risk HPV undergo further evaluation according to current practice guidelines. ??* Testing positive for high risk HPV means that the specimen is positive for at least one of the following 14 types tested: ??types 16, 18, 31, 33, 35, 39, 45, 51, 52, 56, 58, 59, 66, and 68. Doug Hebert?? HPV test Specimen: HPV Testing - Cytology Liquid Based Prep [facility] Cervical swab (specimen) 06/16/2015 9:13 AM EST 06/17/2015 2:19 PM EST Narrative Resulting Agency Comment Spec In Lab Latonia MORA PATHOLOGY/CYTOL OGY ORDERABLES Performing Organization Address [facility]/State/ZIP Co de Phone Number [facility] * Cytopathology Gynecological (06/16/2015 9:13 AM EST) AP Specimen 06/16/2015 9:13 AM EST 06/16/2015 9:13 AM EST Narrative [facility] - 06/16/2015 9:13 AM EST Specimen requisition ordered. ??Separate Pathology report to follow Shay Mackey MD PATHOLOGY/CYTOLOGY ORDERABLES Performing Organization Address [facility]/State/ZIP Co de Phone Number [facility] documented in this encounter Visit Diagnoses Diagnosis Abnormal cervical Papanicolaou smear, unspecified abnormal pap finding Uterine leiomyoma, unspecified location documented in this encounter
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
--- OUTSIDE RECORDS SUMMARY | 2024-03-20 22:10 | XMS_ITS | Encounter Summary ---
Author Organization [facility] [place] [address] Care Team Providers Care Credit Intern Name Role Phone Unavailable Primary Care Provider Unavailabl e Encounter Details Date Type Department Care Team (Latest Contact Info) Description 09/13/2015 9:00 AM EST Procedure [place] [address] Kimberlyn Curtis MD [facility] [place] [address] Cervical radiculopathy at C7; Neck pain; Arm numbness Social History Tobacco Use Types Packs/Day Years [...] Sign Reading Time Taken Comments Blood Pressure 113/75 09/13/2015 9:19 AM EST Pulse 56 09/13/2015 9:19 AM EST Temperature - - Respiratory Rate - - Oxygen Saturation - - Inhaled Oxygen Concentration - - Weight 62.5 kg (137 lb 12.8 oz) 09/13/2015 9:19 AM EST Height 156 cm (5' 1.4) 09/13/2015 9:19 AM EST Body Mass Index 25.7 09/13/2015 9:19 AM EST documented in this encounter Progress Notes * Kimberlyn Curtis MD - 09/13/2015 10:24 AM EST Neurology Clinic Follow-up Note 09/13/2015 12:56 PM Patient Name: Yumiko De Leon : 1970 PCP: Manda Randhawa MD Patient ID: Yumiko De Leon is a 45 y.o. female here for NCS/EMG study of right arm pain and numbness. The studywas to be performed at her last assessment but she could not stay for the procedure. Today's assessment is limited to assess for changes since last visit. Patient was last seen by me in July of 2015 for chief complaint of neck pain, arm numbness. Assessment form last visit: Assessment: Yumiko De Leon is a 45 y.o. female who presents [...] meantime as this appears to be improving. Since last visit, she reports no significant change in her symptoms although she is doing better this morning. This may been due to the use of Naprosyn as a nonsteroidal anti-inflammatory agent; however, her use of NSAIDs is somewhat limited by GI side effects. She did work with physical therapy but found that this tended to worsen her symptoms. Of relevance in her medical history, she was recently seen by Dr. Hewitt in genetics who felt her clinical presentation was consistent with Suzy Danlos syndrome. She expressed some concern regarding renal function in the setting of chronic NSAID use. Patient Active Problem List Diagnosis ??? Hypermobile joints ??? Disc disease, degenerative, cervical ??? NEENA (juvenile idiopathic arthritis) ??? PTSD (post-traumatic stress disorder) ??? HPV in female ??? Abnormal Pap smear of cervix ??? Fibromyalgia ??? Fibrocystic breast ??? Breast pain Overview Note: ??? Abnormal Reproductive Tract Bleeding ??? GERD ??? Stress and urge incontinence ??? H/O sciatica ??? Suzy-Danlos syndrome type III ??? Neuropathic pain ??? Cervicalgia ??? Headache(784.0) ??? Asthma ??? Myocardial infarct ??? Uterine cancer ??? Rheumatoid arthritis ??? Healthcare maintenance Past Medical History Diagnosis Date ??? Rheumatoid arthritis ??? Ankle sprain ??? Uterine cancer ??? Breast lump left ??? Myocardial infarct ??? Asthma ??? Fibromyalgia Medications: Medications 09/13/15 0920 Medication Sig Taking? naproxen sodium (ANAPROX) 550 mg Tablet Take 1 tablet by mouth 2 times daily as needed. Yes albuterol (PROVENTIL HFA;VENTOLIN HFA;PROAIR) 90 mcg/actuation HFA Aerosol Inhaler Inhale 2 puffs into the lungs every 4 hours as needed for Wheezing. Use with spacer Yes Allergy: Allergies Allergen Reactions ??? Latex Rash ??? Azithromycin Anaphylaxis ??? Penicillins Anaphylaxis ??? Epinephrine Other (See Comments) fast heart rate ??? Influenza Virus Vaccines Declines based on prior fevers, fatigue. Physical Exam: BP 113/75 mmHg Pulse 56 Ht 156 cm (5' 1.4) Wt 62.506 kg (137 lb 12.8 oz) BMI 25.68 kg/m2 LMP 05/30/2015 Exam not repeated at today's visit. Examination from visit in July 2015 is as follows: Cranial nerves: PERRL, no nystagmus, EOMI without [...] no evidence of dysmetria, dysarthria or tremor. [id number] test and rapid rhythmic movements of upper and lower extremities are normal. Gait and station: Normal stance; normal gait; able to walk on heels and toes and perform tandem gait; Romberg negative. Tendon reflexes: biceps triceps BR patellar AJ Plantars Right 2 2 2 2 2 down Left 2 2 2 2 2 down Diagnostic Tests and Imaging: NCS/EMG: The right median SNAP conduction was borderline but the amplitude was normal. The left median, right ulnar and radial SNAPs were normal. The median and ulnar motor responses were normal. Median and ulnar late response latencies were preserved. Needle EMG revealed mildly reduced recruitmentof motor units in predominantly C7 muscles of the right arm - needle study was otherwise normal. IMPRESSION: Mildly abnormal study. There is evidence suggesting a mild compressive lesion of the right C7 nerve root without axonal loss. This correlates to radiologic study and clinical examination. Assessment / Plan: Yumiko De Leon is a 45 y.o. female who was seen today for follow up on her chief complaint of neck pain and right arm numbness. Since last visit, she has had no significant change in her symptoms although she has been diagnosed with Suzy Danlos syndrome. The electrophysiologic changes on needle EMG are really quite mild, suggesting only mild compressive C7 radiculopathy without evidence for active denervation consistent with axonal loss. She has had a course of physical therapy but apparentlydid not do well with this. Given her new diagnosis of Suzy Danlos syndrome, I would agree that a course of aquatic therapy may be the best next step for her. It seems that continued optimization oftherapy for neck pain with NSAIDs, muscle relaxants and physical maneuvers may be the best next step. However, it would not be unreasonable to consult with the spine clinic for possible injection. She is to see her new PCP tomorrow. I think she would like to discuss management options with her PCP before proceeding with spine referral and I would agree with this is a reasonable approach. Certainly it seems she has not yet had an adequate trial of different physical therapy modalities and agents to manage the musculoskeletal aspect of her neck pain. If arm pain worsens, a course of neuropathic agents could be considered. I would initiate therapy with gabapentin 100 mg, working up to 3 times a day and from there to 300 mg 3 times a day. An alternate agent would be Lyrica 50 mg 3 times a day. Before initiating these medications however I would want to optimize control of her musculoskeletal pain. It was my pleasure to reevaluate this very pleasant lady. I have not set her up with a specific follow-up but would be happy to reevaluate her at any time for ongoing management suggestions or for reevaluation of concerning changes. KIMBERLYN CURTIS MD [facility] Foot Orthopedist, Neuromuscular Medicine [facility] 09/13/2015 12:56 PM I spent 30 minutes of face-face time with the patient, with 20 minutes of this time spent in counseling and coordination of care, excluding time spent in performing electrodiagnostic studies. documented in this encounter Plan of Treatment Upcoming Encounters Date Type Department Care Team (Late st Contact Info) Description 04/07/2024 3:20 PM EDT Office Visit Dermatology at [facility] [address] [place] [address] Dayanna Ramírez MD [facility] [address] [place] [address] documented as of this encounter Visit Diagnoses Diagnosis Cervical radiculopathy at C7 Brachial neuritis or radiculitis nos Neck pain Cervicalgia Arm numbness Disturbance of skin sensation documented in this encounter
--- OUTSIDE RECORDS SUMMARY | 2024-03-20 22:11 | XMS_ITS | Encounter Summary ---
Author Organization [facility] [place] [address] Care Team Providers Care Practice Architect Name Role Phone Unavailable Primary Care Provider Unavailabl e Encounter Details Date Type Department Care Team (Late st Contact Info) Description 06/24/2010 10:00 AM EST Office [place] [address] Jessica Toscano APRN [facility] [place] [address] Social History Tobacco Use Types Packs/Day Years [...] 3:20 PM EDT Office Visit Dermatology at [facility] [address] [place] [address] Dayanna Ramírez MD [facility] [address] [place] [address] documented as of this encounter Visit Diagnoses Not on filedocumented in this encounter
--- OUTSIDE RECORDS SUMMARY | 2024-03-20 22:11 | XMS_ITS | Encounter Summary ---
Author Organization [facility] [place] [address] Care Team Providers Care Box Lining Machine Operator Name Role Phone Unavailable Primary Care Provider Unavailabl e Encounter Details Date Type Department Care Team (Latest Contact Info) Description 11/09/2010 10:40 AM EDT - 11/09/2010 11:59 PM EDT Hospital Encounter [place] [address] Mer Morgan MD [facility] [address] Discharge Disposition: Home Social History Tobacco Use Types Packs/Day Years Used Date Smoking Tobacco: Never Assessed Sex and Gender Information Value Date Recorded Sex Assigned at Not on file Gender Identity Not on file Sexual Orientation Not on file documented as of this encounter Medications at Time of Discharge Medication Sig Dispensed Refills Start Date End Date naproxen sodium (ANAPROX) 550 mg tablet 550 MG = 1 Tablet(s), PO, Twice daily PRN 07/26/2010 07/19/2012 documented as of this encounter Plan of Treatment Upcoming Encounters Date Type Department Care Team (Late st Contact Info) Description 04/07/2024 3:20 PM EDT Office Visit Dermatology at [facility] [address] [place] [phone] Dayanna Ramírez MD [facility] [place] [address] documented as of this encounter Visit Diagnoses Not on filedocumented in this encounter
--- OUTSIDE RECORDS SUMMARY | 2024-03-20 22:11 | XMS_ITS | Encounter Summary ---
Author Organization [facility] [place] [address] Care Team Providers Care Patient Access Name Role Phone Unavailable Primary Care Provider Unavailabl e Reason for Visit * Reason Onset Date Comments Other 08/25/2011 agony, acute o n chronic at this point Encounter Details Date Type Department Care Team (Late st Contact Info) Description 08/25/2011 Telephone [place] [phone] Juliette Garza APRN [facility] [place] [address] Other (agony, acute on chronic at this point) Social History Tobacco Use Types Packs/Day Years Used Date Smoking Tobacco: Never Assessed Sex and Gender Information Value Date Recorded Sex Assigned at Not on file Gender Identity Not on file Sexual Orientation Not on file documented as of this encounter Miscellaneous Notes * Telephone Encounter - Fabby Valiente RN - 08/25/2011 5:15 PM EST Pt has called ongoing. Cannot reach her back at this time. cannot eat', condition sounds acute on chronic at this point. I will reach her back jean-claude. documented in this encounter Plan of Treatment Upcoming Encounters Date Type Department Care Team (Late st Contact Info) Description 04/07/2024 3:20 PM EDT Office Visit Dermatology at [facility] [address] [place] [address] Dayanna Ramírez MD [facility] [address] [place] [address] documented as of this encounter Visit Diagnoses Not on filedocumented in this encounter
--- OUTSIDE RECORDS SUMMARY | 2024-03-20 22:11 | XMS_ITS | Encounter Summary ---
Author Organization [facility] [place] [address] Care Team Providers Care Driver Guard Name Role Phone Unavailable Primary Care Provider Unavailabl e Encounter Details Date Type Department Care Team (Late st Contact Info) Description 12/27/2011 Notes [place] [phone] Mayra Paul RN Social History Tobacco Use Types Packs/Day Years Used Date Smoking Tobacco: Never Alcohol Use Standard Drinks/Week Comments No 0 (1 standard drink = 0.6 oz pur e alcohol) Sex and Gender Information Value Date Recorded Sex Assigned at Not on file Gender Identity Not on file Sexual Orientation Not on file documented as of this encounter Progress Notes * Mayra Paul RN - 12/27/2011 9:03 AM EDT Pt returned call from Renetta Cintron; this nurse relayed all the information from note written in chart 12/25/11. Pt in agreement with this plan. documented in this encounter Plan of Treatment Upcoming Encounters Date Type Department Care Team (Late st Contact Info) Description 04/07/2024 3:20 PM EDT Office Visit Dermatology at [facility] [address] [place] [phone] Dayanna Ramírez MD [facility] [address] [place] [address] documented as of this encounter Visit Diagnoses Not on filedocumented in this encounter
--- OUTSIDE RECORDS SUMMARY | 2024-03-20 22:11 | XMS_ITS | Encounter Summary ---
Author Organization Formerly [facility] [place] [address] Care Team Providers Care Benzene Washer Operator Name Role Phone Unavailable Primary Care Provider Unavailabl e Encounter Details Date Type Department Care Team (Late st Contact Info) Description 11/16/2010 Orders [place] [address] Mer Morgan MD [facility] [place] [address] Social History Tobacco Use Types Packs/Day Years [...] 3:20 PM EDT Office Visit Dermatology at [facility] [address] [place] [address] Dayanna Ramírez MD [facility] [address] [facility] [place] [address] documented as of this encounter Procedures Procedure Name Priority Date/Time Associated Diagnosis Comments MAMMO BREAST US LIMITED Routine 11/16/2010 3:22 PM EDT documented in this encounter Results * MAMMO BREAST US UNILATERAL BILATERAL (11/16/2010 3:22 PM EDT) Anatomical Region Laterality Modality Breast N/A Mammography 11/16/2010 3:22 PM EDT Narrative 11/18/2010 8:15 AM EDT LEFT UNILATERAL DIAGNOSTIC MAMMOGRAM AND LEFT BREAST ULTRASOUND ON 11/16/10: ?? CLINICAL INDICATION: This is a follow-up of the bilateral mammogram with diagnostic imaging of the Left breast and Left breast ultrasound 06/24/10 for a palpable area of concern in the Left axillary tail. The patient reports that the palpable area of concern has decreased in size since 06/22. ?? TECHNIQUE: CC, MLO and laterally extended CC views obtained with direct digital capture as well as a Left breast ultrasound. ?? FINDINGS: The mammogram shows a dense fibroglandular pattern with an area of fibroglandular tissue in the axillary tail which is the palpable abnormality. This is stable and unchanged in appearance on mammogram. ?? Focused ultrasound to the area of concern in the upper, outer quadrant at 0100, 13cm to the nipple also shows an island of hyperechoic fibroglandular tissue which is unchanged as compared to the previous exam. The constellation of findings and the clinical setting strongly suggests that this is accessory breast tissue in the axillary tail. No further evaluation is needed unless there are new clinical concerns. ?? CONCLUSION: ?? BENIGN Left unilateral mammogram and Left breast ultrasound (BIRADS Category 2). Stable axillary tail breast tissue. In view of the decrease in size and the mammographic and sonographic stability, the patient may return to routine screening. Procedure Note Keli Mirza MD - 11/18/2010 LEFT UNILATERAL DIAGNOSTIC MAMMOGRAM AND LEFT BREAST ULTRASOUND ON 11/16/10: CLINICAL INDICATION: This is a follow-up of the bilateral mammogram with diagnostic imaging of the Left breast and Left breast ultrasound 06/24/10for a palpable area of concern in the Left axillary tail. The patient reportsthat the palpable area of concern has decreased in size since 06/22. TECHNIQUE: CC, MLO and laterally extended CC views obtained with directdigital capture as well as a Left breast ultrasound. FINDINGS: The mammogram shows a dense fibroglandular pattern with an areaof fibroglandular tissue in the axillary tail which is the palpableabnormality. This is stable and unchanged in appearance on mammogram. Focused ultrasound to the area of concern in the upper, outer quadrant [id number], 13cm to the nipple also shows an island of hyperechoic fibroglandulartissue which is unchanged as compared to the previous exam. The constellation of findings and the clinical setting strongly suggests that this is accessory breast tissue in the axillary tail. No further evaluation is needed unless there are new clinical concerns. CONCLUSION: BENIGN Left unilateral mammogram and Left breast ultrasound (BIRADSCategory 2). Stable axillary tail breast tissue. In view of the decrease in sizeand the mammographic and sonographic stability, the patient may return to routine screening. Mer Morgan MD IMG MAMMO ORDERABLE S documented in this encounter Visit Diagnoses Not on filedocumented in this encounter
--- OUTSIDE RECORDS SUMMARY | 2024-03-20 22:11 | XMS_ITS | Encounter Summary ---
Author Organization [facility] [place] [address] Care Team Providers Care Aviation Manager Name Role Phone Unavailable Primary Care Provider Unavailabl e Encounter Details Date Type Department Care Team (Late st Contact Info) Description 09/04/2011 Orders [place] [address] Iraida Garza APRN [facility] [place] [address] Abdominal pain, other specified site (Primary Dx) Social History Tobacco Use Types [...] 3:20 PM EDT Office Visit Dermatology at [facility] [address] [place] [address] Dayanna Ramírez MD [facility] [place] [address] documented as of this encounter Results * US abdomen limited (09/07/2011 10:11 AM EST) Anatomical Region Laterality Modality Abdomen Ultrasound 09/07/2011 10:1 1 AM EST Narrative 09/07/2011 10:34 AM EST ?Abdominal ? (Signed Final 09/07/2011 10:33 am) Patient Info ID: ? [id number] ? : [birth year] (41 yrs) Name: ? AFTAB DE LEON ?Visit Date: 09/07/2011 10:10 am Performed By Performed By: ?Anika FIERRO, Sophia Associate: ? Joe RIVERA, Tim Govea Attending: ? Jihan RIVERA, Meagan J. Referred By: ? IRAIDA SOTELO Service(s) Provided UABDLIM - Abdominal Limited Survey Single ? 18444 Organ or Quadrant - [id number] Indications Abdominal pain Reason for exam and clinical history: abd pain, ?gallstones ?inflammatory process ----- Liver ----- Right Lobe Length: ?? 14.9 ?? cm Echogenicity/Echotexture: ?? Normal Gallbladder Cholelithiasis: ?No stones visualized Wall Thickness: ?Normal wall thickness Focal Tenderness: ?No positive Quick's sign Biliary Tract Intrahepatic Ducts: ?? Normal Extrahepatic Ducts: ?? Normal Common Duct Size: ? 4 ? mm -------- Pancreas -------- Head: ? Normal Tail: ? Normal Body: ? Normal Right Kidney Size (cm) ?L: ??9.8 Cortical Thickness: ?Normal Cortical Echogenicity: ?? Normal Hydronephrosis: ?No sonographic evidence Impression Ultrasound - Abdomen Limited - Summary 1. Normal liver parenchyma. 2. No cholelithiasis or evidence of acute cholecystitis. 3. No intra or extra hepatic biliary duct dilitation. I ??viewed the images and agree with the above interpretation. Thank you for allowing us to participate in the care of AFTAB DE LEON. Please do not hesitate to call if you have any questions. ? Meagan Bobo MD Electronically Signed Final Report ?? 09/07/2011 10:33 am Film and interpretation reviewed by the attending Procedure Note Meagan Bobo MD - 09/07/2011 Abdominal (Signed Final 09/07/2011 10:33 am) Patient Info ID: [id number] : [birth year] (41 yrs) Name: AFTAB DE LEON Visit Date: 09/07/2011 10:10 am Performed By Performed By: Sophia Donaldson RDMS Associate: Joe RIVERA, Tim Govea Attending: Meagan Bobo MD Referred By: IRAIDA SOTELO Service(s) Provided UABDLIM - Abdominal Limited Survey Single 61013 Organ or Quadrant - [id number] Indications Abdominal pain Reason for exam and clinical history: abd pain, ?gallstones ?inflammatory process ----- Liver ----- Right Lobe Length: 14.9 cm Echogenicity/Echotexture: Normal Gallbladder Cholelithiasis: No stones visualized Wall Thickness: Normal wall thickness Focal Tenderness: No positive Quick's sign Biliary Tract Intrahepatic Ducts: Normal Extrahepatic Ducts: Normal Common Duct Size: 4 mm -------- Pancreas -------- Head: Normal Tail: Normal Body: Normal Right Kidney Size (cm) L: 9.8 Cortical Thickness: Normal Cortical Echogenicity: Normal Hydronephrosis: No sonographic evidence Impression Ultrasound - Abdomen Limited - Summary 1. Normal liver parenchyma. 2. No cholelithiasis or evidence of acute cholecystitis. 3. No intra or extra hepatic biliary duct dilitation. I viewed the images and agree with the above interpretation. Thank you for allowing us to participate in the care of AFTAB DE LEON. Please do not hesitate to call if you have any questions. Meagan Bobo MD Electronically Signed Final Report 09/07/2011 10:33 am Film and interpretation reviewed by the attending Pacheco Moran MD IMG US GEN ORDERABLE S documented in this encounter Visit Diagnoses Diagnosis Abdominal pain, other specified site- Primary Abdominal pain, other specified site documented in this encounter
--- OUTSIDE RECORDS SUMMARY | 2024-03-20 22:11 | XMS_ITS | Encounter Summary ---
Author Organization [facility] Address [facility] [place] [address] Care Team Providers Care Assistant Plant Controller Name Role Phone Unavailable Primary Care Provider Unavailabl e Encounter Details Date Type Department Care Team (Latest Contact Info) Description 09/07/2011 9:54 AM EST - 09/07/2011 11:59 PM EST Hospital En[place] [phone] CLINIC, Pacheco Calvert MD [facility] [place] [address] Abdominal pain, other specified site Discharge Disposition: Home Social History Tobacco Use [...] Dermatology at [facility] [address] [place] [address] Dayanna Ramírez MD [facility] [address] [place] [address] documented as of this encounter Procedures Procedure Name Priority Date/Time Associated Diagnosis Comments US ABDOMEN LIMITED Routine 09/07/2011 10 :11 AM EST Abdominal pain, other specified site documented in this encounter Results * US abdomen limited (09/07/2011 10:11 AM EST) Anatomical Region Laterality Modality Abdomen Ultrasound 09/07/2011 10:1 1 AM EST Narrative 09/07/2011 10:34 AM EST ?Abdominal ? (Signed Final 09/07/2011 10:33 am) Patient Info ID: ? [id number] ? : ??[birth year] (41 yrs) Name: ? AFTAB DE LEON ?Visit Date: 09/07/2011 10:10 am Performed By Performed By: ?Sophia Donaldson RDMS Associate: ? Joe RIVERA, Timbrissa Govea Attending: ? Jihan RIVERA, Meagan JCheyenne Referred By: ? IRAIDA SOTELO Service(s) Provided UABDLIM - Abdominal Limited Survey Single ? 84136 Organ or Quadrant - [id number] Indications Abdominal pain Reason for exam and [...] Final 09/07/2011 10:33 am) Patient Info ID: [id number] : [birth year] (41 yrs) Name: AFTAB DE LEON Visit Date: 09/07/2011 10:10 am Performed By Performed By: Sophia Donaldson RDMS Associate: Joe RIVERA, Tim Govea Attending: Meagan Bobo MD Referred By: IRAIDA SOTELO Service(s) Provided UABDLIM - Abdominal Limited Survey Single 25666 Organ or Quadrant - [id number] Indications Abdominal pain Reason for exam and [...] Visit Diagnoses Diagnosis Abdominal pain, other specified site documented in this encounter
--- OUTSIDE RECORDS SUMMARY | 2024-03-20 22:11 | XMS_ITS | Encounter Summary ---
Author Organization [facility] [place] [address] Care Team Providers Care Lamination Inspector Name Role Phone Unavailable Primary Care Provider Unavailabl e Reason for Visit * Reason Onset Date Comments Other 09/04/2011 requests testing Encounter Details Date Type Department Care Team (Late st Contact Info) Description 09/04/2011 Telephone [place] [address] Juliette Garza APRN [facility] DR GASTROENTER[place] [address] Other (requests testing ) Social History Tobacco Use Types Packs/Day Years Used Date Smoking Tobacco: Never Assessed Sex and Gender Information Value Date Recorded Sex Assigned at Not on file Gender Identity Not on file Sexual Orientation Not on file documented as of this encounter Miscellaneous Notes * Telephone Encounter - Fabby Valiente RN - 09/04/2011 10:53 AM EST Pt expecting endo or imaging as discussed jean-claude. Dr. Moran planning ( see note) for Juliette Garza FILENET ADMIN to see pt as she did in May. She calls frequently with persistent s/s, see previous notes which are detailed. Today is her 4th day on a liquid diet , her stool have darkened. She felt better yesterday, able to be out of bed, able to taste food and hungry. Ate a small meal And today back Labor and bloating back She also mentions some past discussion about testing to exam pancrease. documented in this encounter Plan of Treatment Upcoming Encounters Date Type Department Care Team (Late st Contact Info) Description 04/07/2024 3:20 PM EDT Office Visit Dermatology at [facility] [address] [place] [address] Dayanna Ramírez MD [facility] [address] [place] [address] documented as of this encounter Visit Diagnoses Not on filedocumented in this encounter
--- OUTSIDE RECORDS SUMMARY | 2024-03-20 22:11 | XMS_ITS | Encounter Summary ---
Author Organization [facility] Address [facility] [place] [address] Care Team Providers Care Government Guard Name Role Phone Unavailable Primary Care Provider Unavailabl e Reason for Visit * Reason Onset Date Comments Other 08/28/2011 acute flare Encounter Details Date Type Department Care Team (Late st Contact Info) Description 08/28/2011 Telephone [place] [address] Pacheco Moran MD [facility] [place] [address] Other (acute flare) Social History Tobacco Use Types Packs/Day Years Used Date Smoking Tobacco: Never Assessed Sex and Gender Information Value Date Recorded Sex Assigned at Not on file Gender Identity Not on file Sexual Orientation Not on file documented as of this encounter Miscellaneous Notes * Telephone Encounter - Fabby Valiente RN - 02/27/2012 11:36 AM EDT error * Telephone Encounter - Pacheco Moran MD - 08/28/2011 10:55 AM EST Chapito Sequeira. I havent' seen her before. manuela saw her last May. I think she needs to check in with her local MD first - she [place] 1[place]5 hours from here, or we can look for a spot with manuela in the next few days. If nothing is available, see if there is an urgent clinic visit with one of the fellows. pacheco Cook * Telephone Encounter - Fabby Valiente RN - 08/28/2011 9:47 AM EST Return call to pt: . Since December discomfort building: stomach hurts all the time with eating and drinking. Results in no BM's several days, bloating - better with fiber and coffee. ? Hernia. Bloating with small amt of food. feel punched and much pain during eating also. Has avoided some meals. Couch bound at times. Retaining fluid. Legs get puffy,normally more active, BM strain - has formed or diarrhea alternating like a blockage, sometimes BM relieves pain. Lots of moving residences recently, pain with lifting furniture. Stress Cannot tolerate naproxen or nsaids Needed for arthritis. Coffee or cold can numb pain. Takes maaloxfor burning.. documented in this encounter Plan of Treatment Upcoming Encounters Date Type Department Care Team (Late st Contact Info) Description 04/07/2024 3:20 PM EDT Office Visit Dermatology at [facility] [address] [place] [address] Dayanna Ramírez MD [facility] [place] [address] documented as of this encounter Visit Diagnoses Not on filedocumented in this encounter
--- OUTSIDE RECORDS SUMMARY | 2024-03-20 22:11 | XMS_ITS | Encounter Summary ---
Author Organization [facility] Address [facility] [place] [address] Care Team Providers Care Endoscopy Specialty Technician Name Role Phone Unavailable Primary Care Provider Unavailabl e Encounter Details Date Type Department Care Team (Latest Contact Info) Description 11/22/2011 11:47 AM EDT - 11/22/2011 11:59 PM EDT Hospital Encounter [place] [phone] CLINIC, Mer Yin MD [facility] [place] [address] Discharge Disposition: Home Social History Tobacco Use [...] 3:20 PM EDT Office Visit Dermatology at [facility] [address] [place] [address] Dayanna Ramírez MD [facility] [place] [address] documented as of this encounter Procedures Procedure Name Priority Date/Time Associated Diagnosis Comments MAMMO SCREENING CAD BILATERAL Routine 11/22/2011 12:24 PM EDT documented in this encounter Results * MAMMO DIGITAL BILATERAL SCREENING WITH CAD (11/22/2011 12:24 PM EDT) Anatomical Region Laterality Modality Breast Bilateral Mammography 11/22/2011 12:2 4 PM EDT Narrative 11/24/2011 7:40 AM EDT BILATERAL MAMMOGRAPHY ?? REASON FOR EXAM: Screening ?? TECHNIQUE: Cranio-caudal (CC) and mediolateral oblique (MLO) views of both breasts obtained with direct digital capture. The exam was evaluated by CAD Version 8.3.17. In addition to the routine 2D imaging this exam was also performed with 3D tomographic imaging in MLO and CC projections. ?? FINDINGS: This is a negative mammogram (ACR Category 1). There is a stable fibroglandular pattern without significant change as compared to prior studies. There is no mammographic evidence of cancer. ? The breasts are heterogeneously dense which may limit mammographic sensitivity for the detection of malignancy. ? CONCLUSION ?? This is a NEGATIVE mammogram (ACR Category 1). Routine screening mammography is recommended with the frequency dependent on the patient's age and breast cancer risk factors. ?? A letter has been sent to this patient by [facility]. Procedure Note Quynh Rg MD - 11/24/2011 BILATERAL MAMMOGRAPHY REASON FOR EXAM: Screening TECHNIQUE: Cranio-caudal (CC) and mediolateral oblique (MLO) views of both breasts obtained with direct digital capture. The exam was evaluated byCAD Version 8.3.17. In addition to the routine 2D imaging this exam was also performed with 3D tomographic imaging in MLO and CC projections. FINDINGS: This is a negative mammogram (ACR Category 1). There is a stable fibroglandular pattern without significant change as compared to priorstudies. There is no mammographic evidence of cancer. The breasts are heterogeneously dense which may limit mammographicsensitivity for the detection of malignancy. CONCLUSION This is a NEGATIVE mammogram (ACR Category 1). Routine screeningmammography is recommended with the frequency dependent on the patient's age and breastcancer risk factors. A letter has been sent to this patient by the [facility]. Mer Morgan MD IMG MAMMO ORDERABLE S documented in this encounter Visit Diagnoses Not on filedocumented in this encounter
--- OUTSIDE RECORDS SUMMARY | 2024-03-20 22:11 | XMS_ITS | Encounter Summary ---
Author Organization [facility] [place] [address] Care Team Providers Care International Logistics Coordinator Name Role Phone Unavailable Primary Care Provider Unavailabl e Reason for Visit * Reason Onset Date Comments Medication Refill 07/19/2012 Encounter Details Date Type Department Care Team (Late st Contact Info) Description 07/19/2012 [place]ill [place] [address] Iker Montgomery MD [facility] [place] [address] NEENA (juvenile idiopathic arthritis) (Primary Dx) Social History Tobacco Use Types [...] Visit Dermatology at [facility] [address] [place] [address] Dayanna Ramírez MD [facility] [address] [place] [address] documented as of this encounter Visit Diagnoses Diagnosis NEENA (juvenile idiopathic arthritis)- Primary Other specified inflammatory polyarthropathies documented in this encounter
--- OUTSIDE RECORDS SUMMARY | 2024-03-20 22:11 | XMS_ITS | Encounter Summary ---
Author Organization [facility] [place] [address] Care Team Providers Care Cyber Defense Analyst Name Role Phone Unavailable Primary Care Provider Unavailabl e Encounter Details Date Type Department Care Team (Latest Contact Info) Description 12/26/2012 2:43 PM EDT - 12/26/2012 11:59 PM EDT Hospital En[place] [phone] CLINIC, Mer Yin MD [facility] [place] [address] [place] Discharge Disposition: Home Social History Tobacco Use [...] [facility] [address] [place] [address] Dayanna Ramírez MD [facility] [address] [facility] [place] [address] documented as of this encounter Procedures Procedure Name Priority Date/Time Associated Diagnosis Comments MAMMO DIAGNOSTIC CAD BILATERAL Routine 12/26/2012 3:31 PM EDT Mass documented in this encounter Results * Mammo digital bilateral diagnostic with CAD (12/26/2012 3:31 PM EDT) Anatomical Region Laterality Modality Breast Bilateral Mammography 12/26/2012 3:31 PM EDT Impressions 12/27/2012 11:05 AM EDT IMPRESSION: ?? (BIRADS Category 2) BENIGN mammogram and ultrasound of the Left breast for a palpable stable island of fibroglandular tissue in the axillary tail. ?? (BIRADS Category 1) NEGATIVE mammogram of the Right breast. ? The patient will follow-up with Renetta Toscano in the surgery department for her clinical concerns. Otherwise, the patient may continue with routine screening. ?? Preliminary report E-mailed to Renetta Toscano NP on 12/27/12. ?? Narrative 12/27/2012 11:05 AM EDT BILATERAL DIRECT DIGITAL MAMMOGRAM AND LEFT BREAST ULTRASOUND ON 12/26/12: ?? CLINICAL INDICATION: This is a screening exam of both breasts as well as diagnostic evaluation of the Left breast for recurrent waxing and waning painful mass in the Left axilla. ? TECHNIQUE: CC and MLO views of both breasts and Left ML and Left laterally extended CC view obtained with direct digital capture as well as a Left breast ultrasound. This exam was evaluated by CAD version 8.3.17. ?? COMPARISON: Prior screening mammograms and ultrasounds dating back to 06/24/10. ?? FINDINGS: The breasts are heterogeneously dense. ?? No change or finding worrisome for malignancy is seen in either breast. The palpable area of concern in the Left axilla corresponds to an island of fibroglandular tissue which is stable in appearance as compared to the previous mammograms and ultrasound. ? Procedure Note Keli Mirza MD - 12/27/2012 BILATERAL DIRECT DIGITAL MAMMOGRAM AND LEFT BREAST ULTRASOUND ON 12/26/12: CLINICAL INDICATION: This is a screening exam of both breasts as well as diagnostic evaluation of the Left breast for recurrent waxing and waning painful mass in the Left axilla. TECHNIQUE: CC and MLO views of both breasts and Left ML and Left laterally extended CC view obtained with direct digital capture as well as a Leftbreast ultrasound. This exam was evaluated by CAD version 8.3.17. COMPARISON: Prior screening mammograms and ultrasounds dating back to06/24/10. FINDINGS: The breasts are heterogeneously dense. No change or finding worrisome for malignancy is seen in either breast.The palpable area of concern in the Left axilla corresponds to an island of fibroglandular tissue which is stable in appearance as compared to theprevious mammograms and ultrasound. IMPRESSION IMPRESSION: (BIRADS Category 2) BENIGN mammogram and ultrasound of the Left breast fora palpable stable island of fibroglandular tissue in the axillary tail. (BIRADS Category 1) NEGATIVE mammogram of the Right breast. The patient will follow-up with Renetta Toscano in the surgery department forher clinical concerns. Otherwise, the patient may continue with routinescreening. Preliminary report E-mailed to Renetta Toscano NP on 12/27/12. Mer Morgan MD IMG MAMMO ORDERABLE S documented in this encounter Visit Diagnoses Diagnosis Mass Localized superficial swelling, mass, or lump documented in this encounter
--- OUTSIDE RECORDS SUMMARY | 2024-03-20 22:11 | XMS_ITS | Encounter Summary ---
Author Organization [facility] [place] [address] Care Team Providers Care Sap Solutions Architect Name Role Phone Unavailable Primary Care Provider Unavailabl e Encounter Details Date Type Department Care Team (Late st Contact Info) Description 12/15/2011 [place] [address] Karli Flynn, RN Social History Tobacco Use Types Packs/Day [...] PM EDT Office Visit Dermatology at [facility] [address] [place] [address] Dayanna Ramírez MD [facility] [address] [place] [address] documented as of this encounter Visit Diagnoses Not on filedocumented in this encounter
--- OUTSIDE RECORDS SUMMARY | 2024-03-20 22:11 | XMS_ITS | Encounter Summary ---
Author Organization [facility] [place] [address] Care Team Providers Care Supervising Airplane Pilot Name Role Phone Unavailable Primary Care Provider Unavailabl e Encounter Details Date Type Department Care Team (Late st Contact Info) Description 11/06/2011 11:59 PM EDT Anesthesia Event [place] [address] Iker Ruggiero MD [facility] [place] [address] Anesthesia Record Procedure Summary Procedure Name Responsible Anesthesiologist Anesthesia Start Time Anesthesia Stop Time BREAST BIOPSY, INCISIONAL (WRVU 3.23) (Left: Breast) Events No events on file. Meds * Agents No agents on file. * Blood No blood administrations on file. Lines, Drains, and Airways Type Details Placement Removal (RETIRED) Peripheral IV Line - Single Lumen 04/18/23; 1248; metacarpal vein (top of hand), left; [id number] catheter system; Anatomical Landmarks; US Not Used; 22 gauge; jpm; distraction, intradermal injection 04/18/23 1248 by Diya Ramey RN documented in this encounter Social History Tobacco Use Types Packs/Day Years [...] 3:20 PM EDT Office Visit Dermatology at [facility] [address] [place] [address] Dayanna Ramírez MD [facility] [place] [address] documented as of this encounter Visit Diagnoses Not on filedocumented in this encounter
--- OUTSIDE RECORDS SUMMARY | 2024-03-20 22:11 | XMS_ITS | Encounter Summary ---
Author Organization [facility] [place] [address] Care Team Providers Care Meal Attendant Name Role Phone Unavailable Primary Care Provider Unavailabl e Encounter Details Date Type Department Care Team (Late st Contact Info) Description 06/24/2010 9:00 AM EST Follow-Up Obstetrics [place] [address] Jerry Vergara MD [facility] DR OBSTETRICS & [place] [address] Social History Tobacco Use Types Packs/Day Years [...] at [facility] [address] [place] [address] Dayanna Ramírez MD [facility] [address] [place] [address] documented as of this encounter Visit Diagnoses Not on filedocumented in this encounter
--- OUTSIDE RECORDS SUMMARY | 2024-03-20 22:11 | XMS_ITS | Encounter Summary ---
Author Organization [facility] [place] [address] Care Team Providers Care Booking Supervisor Name Role Phone Unavailable Primary Care Provider Unavailabl e Reason for Visit * Reason Onset Date Comments Other 12/25/2011 Encounter Details Date Type Department Care Team (Late st Contact Info) Description 12/25/2011 Telephone Gastroenterology at [facility] [place] [phone] Renetta Lewis RN Other Social History Tobacco Use Types Packs/Day Years Used Date Smoking Tobacco: Never Alcohol Use Standard Drinks/Week Comments No 0 (1 standard drink = 0.6 oz pur e alcohol) Sex and Gender Information Value Date Recorded Sex Assigned at Not on file Gender Identity Not on file Sexual Orientation Not on file documented as of this encounter Miscellaneous Notes * Telephone Encounter - Renetta Lewis RN - 12/25/2011 3:39 PM EDT Called patient per Juliette Garza APRN. Inform the patient that her labs are overall normal. However her serum potassium level is slightly low at 3.4. Inform the patient to eat more foods with potassium. Also, f/u with her pcp for repeat potassium level in 4 weeks. Bananas, cantaloupe, potatoes, raisins, winter squash, spinach, plain yogurt are foods that are agreeable with a FODMAP friendly diet. Patient unavailable for discussion. Left voice mail message with GI clinic phone number: [phone]. Note: Discussed patient's potassium level with Dr. Yen Mccall's RN. Despite Dr. Mccall listed as the patient's PCP, the patient has never seen this doctor. documented in this encounter Plan of Treatment Upcoming Encounters Date Type Department Care Team (Late st Contact Info) Description 04/07/2024 3:20 PM EDT Office Visit Dermatology at [facility] [address] [place] [address] Dayanna Ramírez MD [facility] [address] [place] [address] documented as of this encounter Visit Diagnoses Not on filedocumented in this encounter
--- OUTSIDE RECORDS SUMMARY | 2024-03-20 22:11 | XMS_ITS | Encounter Summary ---
Author Organization [facility] Address [facility] [place] [address] Care Team Providers Care Garage Construction Equipment Mechanic Name Role Phone Unavailable Primary Care Provider Unavailabl e Encounter Details Date Type Department Care Team (Late st Contact Info) Description 09/07/2011 2:30 PM EST - 09/07/2011 3:30 PM EST [place] [address] Desmond Whipple MD [facility] [place] [address] EGD WITH BIOPSY (WRVU 2.39) Social History Tobacco Use Types Packs/Day Years [...] Sign Reading Time Taken Comments Blood Pressure 109/62 09/07/2011 4:27 PM EST Pulse 66 09/07/2011 4:27 PM EST Temperature 37.2 ??C (99 ??F) 09/07/2011 1:52 PM EST Respiratory Rate 17 09/07/2011 4:27 PM EST Oxygen Saturation 100% 09/07/2011 4:27 PM EST Inhaled Oxygen Concentration - - Weight - - Height - - Body Mass Index - - documented in this encounter Discharge Instructions * Patient Instructions* Desmond Whipple MD - 09/07/2011 3:17 PM EST Please see Recommendations in the Provation procedure report which is documented in the procedural note in E-DH. documented in this encounter Medications at Time of Discharge Medication Sig Dispensed Refills Start Date End Date naproxen sodium (ANAPROX) 550 mg tablet 550 MG = 1 Tablet(s), PO, Twice daily PRN 07/26/2010 07/19/2012 documented as of this encounter H&P Notes * Desmond Whipple MD - 09/07/2011 3:15 PM EST Gastroenterology and Hepatology Pre-Procedure History and Physical Exam Procedure: colonoscopy and EGD Indication: Abd pain, altered bowel habits Worse diffuse abd pain, and diarrhea alternating constipation over last few months. Takes Naproxen. HEENT: Airway examined, oropharynx clear LUNGS: Clear to auscultation HEART: Regular rate and rhythm, normal S1, S2 ABDOMEN: Normal bowel sounds, soft, non tender, non distended, A/P Proceed with colonoscopy and EGD. Risks and benefits of the procedure explained to the patient. Consent signed. documented in this encounter Miscellaneous Notes * Miscellaneous - Provider, Scanning - 09/07/2011 9:55 PM EST * Miscellaneous - Provider, Scanning - 09/07/2011 3:46 PM EST * OR Attestation - Desmond Whipple MD - 09/07/2011 3:17 PM EST Attestation: Case Date: 09/07/2011 I performed this procedure without the involvement of a resident. Desmond WHIPPLE MD 09/07/2011 * Op Note - Desmond Whipple MD - 09/07/2011 3:16 PM EST Please see the Provation procedure report in the Procedures tab in eDH. documented in this encounter Plan of Treatment Upcoming Encounters Date Type Department Care Team (Late st Contact Info) Description 04/07/2024 3:20 PM EDT Office Visit Dermatology at [facility] [address] [place] [address] Dayanna Ramírez MD [facility] [place] [address] documented as of this encounter Procedures Procedure Name Priority Date/Time Associated Diagnosis Comments COLONOSCOPY FLEXIBLE-WITH BX (MSCHAD) Routine 09/08/2011 7:20 AM EST EGD WITH BIOPSY(MELIZA) Routine 09/08/2011 7:20 AM EST SURGICAL PATHOLOGY REPORT Routine 09/07/2011 6:39 PM EST SPECIMEN TO PATHOLOGY Routine 09/07/2011 4:19 PM EST SPECIMEN TO PATHOLOGY Routine 09/07/2011 4:19 PM EST SPECIMEN TO PATHOLOGY Routine 09/07/2011 4:19 PM EST COLONOSCOPY FLEXIBLE, WITH BX (WRVU 3.56) 09/07/2011 3:23 PM EST abd pain EGD WITH BIOPSY (WRVU 2.39) 09/07/2011 3:23 PM EST abd pain COLONOSCOPY Routine 09/07/2011 2:53 PM EST UPPER GI ENDOSCOPY Routine 09/07/2011 2: 50 PM EST documented in this encounter Results * SURGICAL PATHOLOGY REPORT (09/07/2011 6:39 PM EST) Surgical Pathology Report ? [facility] ? Provider: ?? Desmond WHIPPLE ?Pt. Name: ?? YUMIKO DE LEON ? Acc #: ?[id number] ?Pt. ? Col Date: ?? 09/07/2011 ? /Sex: ?1970,(41 years),Female ? Rec Date: ?? 09/07/2011 ? LOC: ?4T ? SURGICAL PATHOLOGY ? ---Pathologic Diagnosis--- ? Endoscopic biopsies - ? A - Mucosal biopsies - duodenum: ? Duodenal mucosa with normal villous architecture and increased ? intraepithelial lymphocytes (SEE NOTE). ? NOTE: ??The morphological findings are etiologically nonspecific and have ? been described in patients with latent celiac disease, bacterial ? overgrowth, viral gastroenteritis, in association with NSAID use or H. ? pylori gastritis, tropical sprue, immunodeficiency syndromes, and more ? recently also as a manifestation of duodenal involvement in Crohn's ? disease. ??Clinical and serological correlation is recommended. ? B - Polyps, stomach: ? Gastric fundic gland polyp(s) (multiple fragments). ? C - Mucosal biopsies - colon: ? Colonic mucosa within normal limits. ? CR-0, CR-PX ? 09/10/11 ? XL ? 09/10/11 Verified by: ? Nikos Hogan MD ? Pathologist ? (Electronic Signature) ? The attending pathologist whose signature appears on this report has ? reviewed all diagnostic slides and has edited the gross and/or ? microscopic portion of the report in rendering the final pathologic ? diagnosis. ? ---Microscopic Description--- ? Slides reviewed, microscopic description not recorded. ? ---Gross Description--- ? A - Labeled/Fixative: Mucosal biopsies - duodenum, formalin. ? Qty/Size/Weight: ?Six, ranging from 0.2 cm to 0.5 cm in ? greatest dimension. ? Tissue Description: ?? Soft, bryant tissues. ? Sections/Processing : ??(T2) ? B - Labeled/Fixative: Polyps stomach, formalin. ? Qty/Size/Weight: ?Three, ranging from 0.1 cm to 0.3 cm in ? [facility] ? Provider: ?? Desmond WHIPPLE ?Pt. Name: ?? YUMIKO DE LEON ? Acc #: ?[id number] ?Pt. ? Col Date: ?? 09/07/2011 ? /Sex: ?1970,(41 years),Female ? Rec Date: ?? 09/07/2011 ? LOC: ?4T ? SURGICAL PATHOLOGY ? greatest dimension. ? Tissue Description: ?? Soft, bryant tissues. ? Sections/Processing : ??(T1) ? C - Labeled/Fixative: Mucosal biopsies - colon, formalin. ? Qty/Size/Weight: ?Multiple, ranging from 0.1 cm to 0.4 cm in ? greatest dimension. ? Tissue Description: ?? Soft, bryant tissues. ? Sections/Processing : ??(T2) ??vms/SHB ? ---Clinical Information--- ? Specimen Submitted: ? A - Mucosal biopsies - duodenum ? B - Polyps, stomach ? C - Mucosal biopsies - colon ? Clinical History/Diagnosis: ? 41 YO with abd pain and diarrhea CERNER MILLENNIUM 09/07/2011 6:39 PM EST L Charles Whipple MD PATHOLOGY/CYTOLOGY O CIRO Performing Organization Address [facility] de Phone Number MADELINE PARKSIUM * Specimen to Pathology (surgical or derm) (09/07/2011 4:19 PM EST) AP Specimen 09/07/2011 4:19 PM EST 09/07/2011 4:19 PM EST Narrative CERNER MILLENNIUM - 09/07/2011 4:19 PM EST Specimen requisition ordered. ??Separate Pathology report to follow L Charles Whipple MD PATHOLOGY/CYTOLOGY O CIRO Performing Organization Address [facility] de Phone Number MADELINE PARKSIUM * Specimen to Pathology (surgical or derm) (09/07/2011 4:19 PM EST) AP Specimen 09/07/2011 4:19 PM EST 09/07/2011 4:19 PM EST Narrative CERNER MILLENNIUM - 09/07/2011 4:19 PM EST Specimen requisition ordered. ??Separate Pathology report to follow L Charles Whipple MD PATHOLOGY/CYTOLOGY O CIRO Performing Organization Address [facility] de Phone Number CERJESSENIA SANTILLANENNIUM * Specimen to Pathology (surgical or derm) (09/07/2011 4:19 PM EST) AP Specimen 09/07/2011 4:19 PM EST 09/07/2011 4:19 PM EST Narrative CERNER MILLENNIUM - 09/07/2011 4:19 PM EST Specimen requisition ordered. ??Separate Pathology report to follow L Charles Whipple MD PATHOLOGY/CYTOLOGY O CIRO Performing Organization Address [facility] de Phone Number MADELINE SANTILLANENNIUM * COLONOSCOPY (09/07/2011 2:53 PM EST) Pathologist [facility] COLONOSCOPY [facility] Endoscopy Patient Name: Yumiko De Leon ? Procedure Date: 09/07/2011 2:53 PM ? Date of : 1970 ? Age: 41 ? Order #: [id number] ? Procedure: ? Colonoscopy Indications: ? Generalized abdominal pain, Diarrhea Providers: ? L Charles Whipple MD, Adonis Stark, ? RN, Linda Dubois, Industrial Conveyor Belt Repairer Referring MD: ?Juliette Garza MD Medicines: ? Midazolam 1 mg IV, Fentanyl 100 ? micrograms IV, Residual sedation ? present from EGD Complications: ? No immediate complications. Procedure: ? Pre-Anesthesia Assessment: ? - Prior to the procedure, a History ? and Physical was performed, and ? patient medications and allergies ? were reviewed. The patient is ? competent. The risks and benefits of ? the procedure and the sedation ? options and risks were discussed with ? the patient. All questions were ? answered and informed consent was ? obtained. Patient identification and ? proposed procedure were verified by ? the physician in the pre-procedure ? area in the endoscopy suite. Mental ? Status Examination: alert and ? oriented. Airway Examination: normal ? oropharyngeal airway and neck ? mobility. Respiratory Examination: ? clear to auscultation. CV ? Examination: normal. ASA Grade ? Assessment: II - A patient with mild ? systemic disease. After reviewing the ? risks and benefits, the patient was ? deemed in satisfactory condition to ? undergo the procedure. The anesthesia ? plan was to use moderate sedation / ? analgesia (conscious sedation). ? Immediately prior to administration ? of medications, the patient was ? re-assessed for adequacy to receive ? sedatives. The heart rate, ? respiratory rate, oxygen saturations, ? blood pressure, adequacy of pulmonary ? ventilation, and response to care ? were monitored throughout the ? procedure. The physical status of the ? patient was re-assessed after the ? procedure. ? The procedure, indications, benefits, ? risks [...] direct visualization, ? advanced to the terminal ileum, with ? identification of the appendiceal ? orifice and IC valve. Careful ? inspection was made as the ? colonoscope was withdrawn. The ? colonoscopy was performed without ? difficulty. The patient tolerated the ? procedure well. The quality of the ? bowel preparation was good. ? Findings: ? The colon (entire examined portion) appeared normal. ? Biopsies were taken with a cold forceps for ? evaluation of microscopic colitis. The terminal ileum ? appeared normal. ? Impression: ?- The entire examined colon is ? normal. This was biopsied. ? - The examined portion of the ileum ? was normal. ? - Biopsies were taken with a cold ? forceps for evaluation of microscopic ? colitis. Recommendation: ?- Await pathology results. ? - Follow-up with Ms. Garza. ? _ L Charles Whipple MD 09/07/2011 4:21 PM Number of Addenda: 0 Note Initiated On: 09/07/2011 2:53 PM PROVATION 09/07/2011 2:53 PM EST Juliette Garza HOSTESS HOST GENERAL SURGICAL ORD ERABLES PROVATION * UPPER GI ENDOSCOPY (09/07/2011 2:50 PM EST) UPPER GI ENDOSCOPY [facility] Endoscopy Patient Name: Yumiko De Leon ? Procedure Date: 09/07/2011 2:50 PM ? N: [id number] ? Date of : 1970 ? Age: 41 ? Order #: [id number] ? Procedure: ? Upper GI endoscopy Indications: ? Generalized abdominal pain Providers: ? L Charles Whipple MD, Adonis Stark, ? RN, Linda Dubois, Industrial Conveyor Belt Repairer Referring MD: ?Yen Mccall MD, Tracia ? MD Bakari Medicines: ? Midazolam 4 mg IV, Fentanyl 200 ? micrograms IV, Promethazine 12.5 mg ? IV, Diphenhydramine 50 mg IV Complications: ? No immediate complications. Procedure: ? Pre-Anesthesia Assessment: ? - Prior to the procedure, a History ? and Physical was performed, and ? patient medications and allergies ? were reviewed. The patient is ? competent. The risks and benefits of ? the procedure and the sedation ? options and risks were discussed with ? the patient. All questions were ? answered and informed consent was ? obtained. Patient identification and ? proposed procedure were verified by ? the physician in the pre-procedure ? area in the endoscopy suite. Mental ? Status Examination: alert and ? oriented. Airway Examination: normal ? oropharyngeal airway and neck ? mobility. Respiratory Examination: ? clear to auscultation. CV ? Examination: normal. ASA Grade ? Assessment: II - A patient with mild ? systemic disease. After reviewing the ? risks and benefits, the patient was ? deemed in satisfactory condition to ? undergo the procedure. The anesthesia ? plan was to use moderate sedation / ? analgesia (conscious sedation). ? Immediately prior to administration ? of medications, the patient was ? re-assessed for adequacy to receive ? sedatives. The heart rate, ? respiratory rate, oxygen saturations, ? blood pressure, adequacy of pulmonary ? ventilation, and response to care ? were monitored throughout the ? procedure. The physical status of the ? patient was re-assessed after the ? procedure. ? The procedure, indications, benefits, ? risks [...] ? endoscopy was accomplished without ? difficulty. ? Findings: ? The examined esophagus was normal. Multiple ? diminutive sessile polyps were found in the gastric ? fundus and in the gastric body. Biopsies were taken ? with a cold forceps for histology. The examined ? duodenum was normal. Biopsies were taken with a cold ? forceps for evaluation of celiac disease. ? Impression: ?- No explanation for abdominal pain ? seen on this exam ? - Normal esophagus. ? - Multiple gastric polyps. These are ? incidental and not a cause of ? symptoms. This was biopsied. ? - Normal examined duodenum. Biopsy ? was performed. ? - Biopsies were taken with a cold ? forceps for evaluation of celiac ? disease. Recommendation: ?- Await pathology results. ? _ L Charles Whipple MD 09/07/2011 3:45 PM Number of Addenda: 0 Note Initiated On: 09/07/2011 2:50 PM PROVATION 09/07/2011 2:50 PM EST Yen Mccall MD GENERAL SURGICAL OR DERABLES PROVATION documented in this encounter Visit Diagnoses Not on filedocumented in this encounter Administered Medications Inactive Administered Medications - up to 3 most recent administrations Medication Order MAR Action Action Date Dose Rate Site diphenhydrAMINE (BENADRYL) injection ONCE PRN, Starting on Khalida 09/07/11 at 1525, Until Khalida 09/07/11 at 2209, Itching, Intra-Operative (Intra-Procedure), Routine Given 09/07/2011 3:38 PM EST 25 mg Given 09/07/2011 3:25 PM EST 25 mg fentaNYL 50mcg/mL injection ONCE PRN, Starting on Khalida 09/07/11 at 1525, Until Khalida 09/07/11 at 2209, Pain, Intra-Operative (Intra-Procedure), Routine Given 09/07/2011 3:54 PM EST 5 0 mcg Given 09/07/2011 3:44 PM EST 50 mcg Given 09/07/2011 3:38 PM EST 50 mcg lactated ringers infusion 100 mL/hr, Intravenous, CONTINUOUS, Starting on Khalida 09/07/11 at 1415, Until Khalida 09/07/11 at 2209, Endoscopy (Day of Procedure) New Bag 09/07/2011 1:56 PM EST 100 mL/hr 100 mL/hr midazolam (VERSED) injection ONCE PRN, Starting on Khalida 09/07/11 at 1525, Until Khalida 09/07/11 at 2209, Sleep, Intra-Operative (Intra-Procedure), Routine Given 09/07/2011 3:38 PM EST 1 mg Given 09/07/2011 3:28 PM EST 1 mg Given 09/07/2011 3:25 PM EST 2 mg promethazine (PHENERGAN) injection ONCE PRN, Nausea, Starting on Khalida 09/07/11 at 1532, Until Khalida 09/07/11 at 2209, Avoid extravasation, Intra-Operative (Intra-Procedure) Given 09/07/2011 3:32 PM EST 12.5 mg documented in this encounter Active and Recently Administered Medications Times are shown in EST. Continuous Medication Order 09/05/2011 09/06/2011 09/07/2011 lactated ringers infusion (CANCELED) 100 mL/hr, Intravenous, CONTINUOUS, Starting on Khalida 09/07/11 at 1415, Until Khalida 09/07/11 at 2209, Endoscopy (Day of Procedure) 1356 (New Bag - Prov ider: Maia Broussard RN) PRN Medication Order 09/05/2011 09/06/2011 09/07/2011 diphenhydrAMINE (BENADRYL) injection (CANCELED) ONCE PRN, Starting on Khalida 09/07/11 at 1525, Until Khalida 09/07/11 at 2209, Itching, Intra-Operative (Intra-Procedure), Routine 1525 (Given - Provid er: Adonis Stark RN)1538 (Given - Provider: Adonis Stark RN) fentaNYL 50mcg/mL injection (CANCELED) ONCE PRN, Starting on Khalida 09/07/11 at 1525, Until Khalida 09/07/11 at 2209, Pain, Intra-Operative (Intra-Procedure), Routine 1525 (Given - Provid er: Adonis Stark RN)1528 (Given - Provider: Adonis Stark RN)1538 (Given - Provider: Adonis Stark RN)1544 (Given - Provider: Adonis Stark RN)1554 (Given - Provider: Adonis Stark RN) midazolam (VERSED) injection (CANCELED) ONCE PRN, Starting on Khalida 09/07/11 at 1525, Until Khalida 09/07/11 at 2209, Sleep, Intra-Operative (Intra-Procedure), Routine 1525 (Given - Provid er: Adonis Stark RN)1528 (Given - Provider: Adonis Stark RN)1538 (Given - Provider: Adonis Stark RN)1554 (Canceled Entry - Provider: Adonis Stark RN - Comment: given, deleted accidentally) promethazine (PHENERGAN) injection (CANCELED) ONCE PRN, Nausea, Starting on Khalida 09/07/11 at 1532, Until Khalida 09/07/11 at 2209, Avoid extravasation, Intra-Operative (Intra-Procedure) 153 (Given - Provid er: Adonis Stark RN) documented in this encounter
--- OUTSIDE RECORDS SUMMARY | 2024-03-20 22:11 | XMS_ITS | Encounter Summary ---
Author Organization [facility] [place] [address] Care Team Providers Care Brown Sourer Name Role Phone Unavailable Primary Care Provider Unavailabl e Encounter Details Date Type Department Care Team (Late st Contact Info) Description 07/23/2013 Orders [place] [address] Iker Montgomery MD [facility] [place] [address] NEENA (juvenile idiopathic arthritis) (Primary Dx) Social [...] 3:20 PM EDT Office Visit Dermatology at [facility] [address] [place] [address] Dayanna Ramírez MD [facility] [address] [place] [place] [address] documented as of this encounter Visit Diagnoses Diagnosis NEENA (juvenile idiopathic arthritis)- Primary Other specified inflammatory polyarthropathies documented in this encounter
--- OUTSIDE RECORDS SUMMARY | 2024-03-20 22:11 | XMS_ITS | Encounter Summary ---
Author Organization [facility] [place] [address] Care Team Providers Care Window Framer Name Role Phone Unavailable Primary Care Provider Unavailabl e Encounter Details Date Type Department Care Team (Late st Contact Info) Description 06/24/2010 1:25 PM EST Procedure visit [place] [address] Social History Tobacco Use Types Packs/Day Years [...] 3:20 PM EDT Office Visit Dermatology at [facility] [address] [place] [address] Dayanna Ramírez MD [facility] [place] [address] documented as of this encounter Visit Diagnoses Not on filedocumented in this encounter
--- OUTSIDE RECORDS SUMMARY | 2024-03-20 22:11 | XMS_ITS | Encounter Summary ---
Author Organization [facility] [place] [address] Care Team Providers Care Capsule Inspector Name Role Phone Unavailable Primary Care Provider Unavailabl e Reason for Visit * Reason Onset Date Comments Medication Refill 07/19/2012 Encounter Details Date Type Department Care Team (Late st Contact Info) Description 07/19/2012 [place] [address] Iker Montgomery MD [facility] [place] [address] NEENA (juvenile idiopathic arthritis) (Primary Dx) Social [...] at [facility] [address] [place] [address] Dayanna Ramírez MD [facility] [address] [place] [address] documented as of this encounter Visit Diagnoses Diagnosis NEENA (juvenile idiopathic arthritis)- Primary Other specified inflammatory polyarthropathies documented in this encounter
--- OUTSIDE RECORDS SUMMARY | 2024-03-20 22:11 | XMS_ITS | Encounter Summary ---
Author Organization [facility] [place] [address] Care Team Providers Care Mixer Foam Rubber Name Role Phone Unavailable Primary Care Provider Unavailabl e Reason for Visit * Reason Onset Date Comments Follow-up 08/30/2011 Encounter Details Date Type Department Care Team (Late st Contact Info) Description 08/30/2011 Telephone [place] [address] Juliette Garza APRN [facility] [place] [address] Follow-up Social History Tobacco Use Types Packs/Day Years Used Date Smoking Tobacco: Never Assessed Sex and Gender Information Value Date Recorded Sex Assigned at Not on file Gender Identity Not on file Sexual Orientation Not on file documented as of this encounter Miscellaneous Notes * Telephone Encounter - Nisha Landers - 08/30/2011 1:26 PM EST Patient asked if you could give her a call. She is waiting to hear back about testing/imaging? Patient placed calls to nurse on 08/28. documented in this encounter Plan of Treatment Upcoming Encounters Date Type Department Care Team (Late st Contact Info) Description 04/07/2024 3:20 PM EDT Office Visit Dermatology at [facility] [address] [place] [address] Dayanna Ramírez MD [facility] [address] [address] documented as of this encounter Visit Diagnoses Not on filedocumented in this encounter
--- OUTSIDE RECORDS SUMMARY | 2024-03-20 22:11 | XMS_ITS | Encounter Summary ---
Author Organization [facility] [place] [address] Care Team Providers Care Bag Filler Name Role Phone Unavailable Primary Care Provider Unavailabl e Reason for Visit * Reason Onset Date Comments Medication Refill 07/23/2013 Encounter Details Date Type Department Care Team (Late st Contact Info) Description 07/23/2013 [place] [address] Iker Montgomery MD [facility] [address] NEENA (juvenile idiopathic arthritis) (Primary Dx) Social [...] 3:20 PM EDT Office Visit Dermatology at [facility] [address] [place] [address] Dayanna Ramírez MD [facility] [address] [place] [address] documented as of this encounter Visit Diagnoses Diagnosis NEENA (juvenile idiopathic arthritis)- Primary Other specified inflammatory polyarthropathies documented in this encounter
--- OUTSIDE RECORDS SUMMARY | 2024-03-20 22:11 | XMS_ITS | Encounter Summary ---
Author Organization [facility] [place] [address] Care Team Providers Care Expressive Therapist Name Role Phone Unavailable Primary Care Provider Unavailabl e Encounter Details Date Type Department Care Team (Late st Contact Info) Description 11/16/2010 Orders [place] [address] Mer Morgan MD [facility] [place] [address] Social History Tobacco Use Types Packs/Day Years [...] PM EDT Office Visit Dermatology at [facility] [address] [place] [address] Dayanna Ramírez MD [facility] [address] [address] documented as of this encounter Procedures Procedure Name Priority Date/Time Associated Diagnosis Comments MAMMO DIRECT DIGITAL UNILATERAL Routine 11/16/2010 3:21 PM EDT documented in this encounter Results * MAMMO DIRECT DIGITAL UNILATERAL (11/16/2010 3:21 PM EDT) Anatomical Region Laterality Modality Breast N/A Mammography 11/16/2010 3:21 PM EDT Narrative 11/18/2010 8:15 AM EDT [...] may return to routine screening. Procedure Note eKli Mirza MD - 11/18/2010 LEFT UNILATERAL DIAGNOSTIC [...] of concern in the upper, outer quadrant [id number], 13cm to the nipple also shows an [...]
--- OUTSIDE RECORDS SUMMARY | 2024-03-20 22:11 | XMS_ITS | Encounter Summary ---
Author Organization [facility] [place] [address] Care Team Providers Care Telegraphic Typewriter Mechanic Name Role Phone Unavailable Primary Care Provider Unavailabl e Encounter Details Date Type Department Care Team (Late Contact Info) Description 07/22/2013 Orders [place] [address] [facility] [address] NEENA (juvenile idiopathic arthritis) (Primary Dx) Social [...] 3:20 PM EDT Office Visit Dermatology at [facility] [address] [place] [address] [address] MD [facility] [place] [address] Scheduled Orders Name Type Priority Associated Diagnoses Orde r Schedule Comprehensive metabolic panel (non-fasting) Lab Routine NEENA (juvenile idiopathic arthritis) Expected: 07/22/2013 (Approximate), Expires: 07/22/2014 documented as of this encounter Visit Diagnoses Diagnosis NEENA (juvenile idiopathic arthritis)- Primary Other specified inflammatory polyarthropathies documented in this encounter
--- OUTSIDE RECORDS SUMMARY | 2024-03-20 22:11 | XMS_ITS | Encounter Summary ---
Author Organization [facility] [place] [address] Care Team Providers Care Help Desk Agent Name Role Phone Unavailable Primary Care Provider Unavailabl e Reason for Visit * Reason Onset Date Comments Other 07/21/2013 naproxen Encounter Details Date Type Department Care Team (Late st Contact Info) Description 07/21/2013 [place] [address] Azra Paz RN Other (naproxen) Social History Tobacco Use Types Packs/Day Years Used Date Smoking Tobacco: Never Alcohol Use Standard Drinks/Week Comments No 0 (1 standard drink = 0.6 oz pur e alcohol) Sex and Gender Information Value Date Recorded Sex Assigned at Not on file Gender Identity Not on file Sexual Orientation Not on file documented as of this encounter Miscellaneous Notes * Telephone Encounter - Azra Paz RN - 07/23/2013 3:03 PM EST Called Yumiko and let her know Anaprox rx was filled. She said it was supposed to go to [facility] in [place], [place]. Told her it could be resent. She asked why Dr. Montgomery wants labs, explained to her that he wants to make sure half-way use of NSAIDS are not causing any difficulties. She verbalized understanding and said she would like to have the orders faxed to [facility] lab. She has hadno problems since being on the Anaprox. No heartburn. * Telephone Encounter - Azra Paz RN - 07/22/2013 10:53 AM EST Fine, but please ask her to get CBC and CMP near home. Can you set that up? No heartburn? Thanks! CB Called Yumiko and left message that he will renew her naproxen, but would like her to have labs drawn. Asked her to call back with where she would like the lab orders sent. Also asked her to let us know if she is having any heartburn. * Telephone Encounter - Azra Paz RN - 07/21/2013 2:31 PM EST Yumiko called and left message that she needs a renewal of her naproxen. She says she has an understanding with Dr. Montgomery to renew this. documented in this encounter Plan of Treatment Upcoming Encounters Date Type Department Care Team (Late st Contact Info) Description 04/07/2024 3:20 PM EDT Office Visit Dermatology at [facility] [address] [place] [address] Dayanna Ramírez MD [facility] [place] [address] documented as of this encounter Visit Diagnoses Not on filedocumented in this encounter
--- OUTSIDE RECORDS SUMMARY | 2024-03-20 22:11 | XMS_ITS | Encounter Summary ---
Author Organization [facility] Address [facility] [address] Care Team Providers Care Casting Wheel Operator Name Role Phone Unavailable Primary Care Provider Unavailabl e Reason for Visit * Reason Onset Date Comments Other 10/24/2011 check symptoms Encounter Details Date Type Department Care Team (Late Contact Info) Description 10/24/2011 Refill [place] [address] Juliette Garza APRN [facility] [address] [place] [address] Social History Tobacco Use Types Packs/Day Years [...] Telephone Encounter - Renetta Lewis RN - 10/24/2011 11:27 AM EDT Called patient to check her current GI symptoms, resolved, unresolved or no change. Unable to contact patient. Left GI clinic phone number on voice mail: [phone] documented in this encounter Plan of Treatment Upcoming Encounters Date Type Department Care Team (Late Contact Info) Description 04/07/2024 3:20 PM EDT Office Visit Dermatology at [address] [place] [address] Dayanna Ramírez MD [facility] [address] [place] [address] documented as of this encounter Visit Diagnoses Not on filedocumented in this encounter
--- OUTSIDE RECORDS SUMMARY | 2024-03-20 22:11 | XMS_ITS | Encounter Summary ---
Author Organization [facility] [place] [address] Care Team Providers Care Sand Digger Name Role Phone Unavailable Primary Care Provider Unavailabl e Reason for Visit * Reason Onset Date Comments Other 08/28/2011 create visit per [place] Encounter Details Date Type Department Care Team (Late st Contact Info) Description 08/28/2011 Telephone [place] [address] Manuela Garza APRN [facility] [place] [address] Other (create visit per Luisa) Social History Tobacco Use Types Packs/Day Years Used Date Smoking Tobacco: Never Assessed Sex and Gender Information Value Date Recorded Sex Assigned at Not on file Gender Identity Not on file Sexual Orientation Not on file documented as of this encounter Miscellaneous Notes * Telephone Encounter - Shahida Westbrook RN - 09/01/2011 12:10 PM EST Pt passed symptoms off as other things. Pt experiencing extreme fatigue. Since last October, food has been an issue diarrhea, bowels acting funny (constipation to diarrhea or five days without BM, then volatile BM), vomiting - no resolution over time. Lost sense of taste. In May recognized Stressful life with raising children. When eats one small meal, feels like someone punched stomach. Pale, lightheaded, denies passing out. Unable to eat solid food - states that she's put herself on liquid diet. Uncontrollable shaking. Bloated post eating any solid foods. Pt hasn't followed up with anyone on this. Pt states that last time she saw Manuela Garza was two years ago - stated that there were multiple reasons why she has had to cancel appts with Manuela Garza. No local GI. When offered to connect with racing secretary, pt stated that she didn't believe that a consultation will be of service to her. She would like to have direction over phone and studies initiated. Discussed with/Educated pt about going to ED due to her unexplained fatigue symptoms. I will contact secretaries for scheduling of appt and Manuela Garza to notify of pt complaints and direction. Discussion with Nisula. An EGD and appt will be scheduled. * Telephone Encounter - Arely Sherman - 08/28/2011 12:00 PM EST For you... * Telephone Encounter - Fabby Valiente RN - 08/28/2011 11:35 AM EST Returned call per Dr. 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 Her childcare concerns seem appropriate and important to me. Please checkwith Manuela or as below a fellow that day will be next. The please call her. Fabby alves MD 08/28/11 10:55 AM Signed Chapito Sequeira. I havent' seen her before. manuela saw her last May. I think she needs to check in with her local MD first - [place] 1[place] hours from here, or we can look for a spot with manuela in the next few days. If nothing is available, see if there is an urgent clinic visit with one of the fellows. Thanks, chaka VALIENTE RN 08/28/11 09:47 AM Signed Return call to pt: Since December discomfort building: stomach hurts all [...] or cold can numb pain. Takes maaloxfor burning. documented in this encounter Plan of Treatment Upcoming Encounters Date Type Department Care Team (Late st Contact Info) Description 04/07/2024 3:20 PM EDT Office Visit Dermatology at [facility] [address] [place] [address] Dayanna Ramírez MD [facility] [address] [place] [address] documented as of this encounter Visit Diagnoses Not on filedocumented in this encounter
--- OUTSIDE RECORDS SUMMARY | 2024-03-20 22:11 | XMS_ITS | Encounter Summary ---
Author Organization [facility] [place] [address] Care Team Providers Care Candle Pourer Name Role Phone Unavailable Primary Care Provider Unavailabl e Reason for Visit * Reason Comments Breast Mass Encounter Details Date Type Department Care Team (Late st Contact Info) Description 12/20/2012 10:15 AM EDT Follow-[place] [address] Jessica Toscano APRN [facility] [place] [address] Breast mass (Primary Dx) Discharge Disposition: Home Social History Tobacco Use [...] Progress Notes * Jessica Toscano APRN - 12/20/2012 10:34 AM EDT Ms. De Leon is a 42-year-old female who returns for clinical follow up of a mass in her left breast.This has been present for over 2 years,followed by Dr Morgan. On at least two occasions, Dr Morgan was prepared to excise the area,but Linn cancelled her surgery at the last minute due to anxiety. Eventually the area became smaller and it was decided that surgery was not indicated and Linn agreed to monitor the area. She believes it is getting bigger again. She is wendi menopausal and admits to cyclic fullness and tenderness in the area. She denies any skin changes, breast trauma,prior breast surgery or nipple discharge. She does have a history of cystic breast tissue and has not had cysts aspirated or breast biopsies in the past. She does do regular self-breast exams. Family History: Negative for breast cancer. Positive for ovarian cancer;maternal grandmother in her 40's and several maternal aunts with breastcancer. 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 Past Medical History: RA fibromyalgia Physical Exam: She looks well and is in no apparent distress. Her skin is anicteric with good turgor.Sclera are anicteric. Her head and neck are without masses or adenopathy. Her arms have good ROM without any evidence of lymphedema. Breasts have a paucity of fat. Her breasts are symmetric.Her nipples are everted.There is no axillary adenopathy on the right or the left.There are no skin changes or dimpling noted in either breast. The left breast has dense tissue in the upper, outer quadrant with a soft but discrete round mass in the low axilla at the pec major border at 0100. This is 2x2cm and is less prominent but still detectable compared to previous exam. No other discrete masses noted. . Her right breast exam is similar in character to her left breast,without discrete masses. Last mammogram 11/2011 cat 1,last US 2010 Assessment: 42 yo female with a known and now bigger soft tissue/breast mass or acessory breast tissue/axillary tail mass. Plan:Mammogram and US. Surgical referral to Dr Morgan after imaging as Linn believes she is now ready to have this excised. documented in this encounter Plan of Treatment Upcoming Encounters Date Type Department Care Team (Late st Contact Info) Description 04/07/2024 3:20 PM EDT Office Visit Dermatology at [facility] [address] [place] [address] Dayanna Ramírez MD [facility] [address] [place] [address] (work) documented as of this encounter Visit Diagnoses Diagnosis Breast mass- Primary Lump or mass in breast documented in this encounter
--- OUTSIDE RECORDS SUMMARY | 2024-03-20 22:11 | XMS_ITS | Encounter Summary ---
Author Organization [facility] Address [facility] [place] [address] Care Team Providers Care Dial Lathe Operator Name Role Phone Unavailable Primary Care Provider Unavailabl e Reason for Visit * Reason Comments Follow-up Encounter Details Date Type Department Care Team (Late st Contact Info) Description 04/24/2013 9:00 AM EDT Follow-Up [place] [address] Mer Morgan MD [facility] [place] [address] Fibrocystic breast (Primary Dx) Discharge Disposition: Home Social History [...] as of this encounter Progress Notes * Mer Morgan MD - 04/27/2013 9:38 AM EDT HPI: Ms. De Leon is a 43-year-old patient who returns for clinical follow up of a mass in her left breast. This has been present for 4 years. I last saw her over a year ago. We discussed excisional biopsy but Yumiko felt it was improving and we decided to continue clinical obserbvation. Yumiko reportsthat the mass continues to wax and wane in size but overall is even smaller than when she first noted it. She also notes a mirror imaging site of pain and more prominent breast tissue in the contralateral (right) axillary tail. The pain is cyclic. No new breast masses. She denies any skin changes, breast trauma,prior breast surgery or nipple discharge. The focal tenderness is improved in the breast. ROS: weight fluctuating and she feels she is retaining water She reports weight shifts of 10 pounds over a few days with bloating which improves rapidly. still with severe abdominal cramping pain. Complete GI evaluation to date negative and she reports it is IBD .no hematachezia or BRBPR. No headaches, sob, adenopathy, lymphedema, sob, cough, musculoskeletal pains. + ongoing significant life stress. + hot flashes which awaken her from sleep and moodiness. Still having regular menstrual cycles. Mother went rhrough menopause in 30s. Reproductive History: , had her first child at the age of 14 and did nurse her children. Menarche began at 11.Her LMP was 9. HRT/OC: none Family History: Negative for breast cancer. 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 Recently relocated to [facility] and struggling with new apartment although children are happy there. She does not smoke. Past Medical History: RA fibromyalgia Physical Exam: She looks well and is in no apparent distress. Her skin is anicteric with good turgor.Sclera are anicteric. Her head and neck are without masses or adenopathy. Her arms have good ROM without any evidence of lymphedema. Breasts have a paucity of fat. abd: soft, flat, non tender. Her breasts are symmetric.Her nipples are everted.There is no axillary adenopathy on the right or the left.There are no skin changes or dimpling noted in either breast. The left breast for dense tissue in the upper, outer quadrant with a soft nodularity in the low axilla at the pec major border. This is the area of previous clinical concern but I can no longer reproducibly detect a mass. No other discrete masses noted. The right breast has a very similar area of prominent tissue in the axillary tail. New imagin12/26 mammogram and u/s of the left breast prominence were normal Assessment: 43 yo female with family history of breast cancer with ongoing improvement in clinical exam. No discrete masses on exam today. Plan: Yumiko is doing well from a breast perspective. Exam today as well as imaging from 12/23 are reassuring and Yumiko is comfortable without intervention at this time. Discussed likely perimenopause with severe symptoms. I have given Yumiko Dr. Izzy Sampson's name (She is a passenger locomotive engineer specializing in menopause) and encouraged her to seek specialist gynecological care for these symptoms. I will see Yumiko back on a prn basis. No evidence of malignancy. documented in this encounter Plan of Treatment Upcoming Encounters Date Type Department Care Team (Late st Contact Info) Description 04/07/2024 3:20 PM EDT Office Visit Dermatology at [facility] [address] [place] [address] Dayanna Ramírez MD [facility] [address] [place] [address] documented as of this encounter Visit Diagnoses Diagnosis Fibrocystic breast- Primary Diffuse cystic mastopathy documented in this encounter
--- OUTSIDE RECORDS SUMMARY | 2024-03-20 22:11 | XMS_ITS | Encounter Summary ---
Author Organization [facility] [place] [address] Care Team Providers Care Logistics Planner Name Role Phone Unavailable Primary Care Provider Unavailabl e Encounter Details Date Type Department Care Team (Late st Contact Info) Description 11/16/2010 1:25 PM EDT Procedure visit [address] [address] Social History Tobacco Use Types Packs/Day Years [...] at [facility] [address] [place] [address] Dayanna Ramírez MD [facility] [address] [place] [address] documented as of this encounter Visit Diagnoses Not on filedocumented in this encounter
--- OUTSIDE RECORDS SUMMARY | 2024-03-20 22:11 | XMS_ITS | Encounter Summary ---
Author Organization [facility] [place] [address] Care Team Providers Care Seismograph Computer Name Role Phone Unavailable Primary Care Provider Unavailabl e Encounter Details Date Type Department Care Team (Late st Contact Info) Description 06/24/2010 2:00 PM EST Procedure visit [place] [address] Social History Tobacco Use Types Packs/Day Years [...] 3:20 PM EDT Office Visit Dermatology at [facility] [address] [place] [address] Dayanna Ramírez MD [facility] [place] [address] documented as of this encounter Visit Diagnoses Not on filedocumented in this encounter
--- OUTSIDE RECORDS SUMMARY | 2024-03-20 22:11 | XMS_ITS | Encounter Summary ---
Author Organization [facility], Located Within [facility] [place] [address] Care Team Providers Care Survey Party Chief Name Role Phone Unavailable Primary Care Provider Unavailabl e Encounter Details Date Type Department Care Team (Late st Contact Info) Description 01/03/2012 11:00 AM EDT Follow-Up [place] [phone] Mer Morgan MD [facility] [place] [address] Breast mass (Primary Dx) Discharge Disposition: Home [...] Sign Reading Time Taken Comments Blood Pressure 105/63 01/03/2012 11:08 AM EDT Pulse 72 01/03/2012 11:08 AM EDT Temperature 36.4 ??C (97.5 ??F) 01/03/2012 11:08 AM E DT Respiratory Rate 16 01/03/2012 11:08 AM EDT Oxygen Saturation - - Inhaled Oxygen Concentration - - Weight - - Height - - Body Mass Index - - documented in this encounter Progress Notes * Mer Morgan MD - 01/03/2012 12:23 PM EDT HPI: Ms. De Leon is a 41-year-old patient who returns for clinical follow up of a mass in her left breast. This has been present for 2 years. I last saw her nearly 3 months ago. At that time, the masswas smaller and less prominent but decorative cutting machine tender and discrete. We planned surgical excision but Yumiko has been struggling with some other medical issues of late and cancelled 2 surgery dates. Yumiko reports that the mass continues to wax and wane in size but overall is even smaller than when she first noted it. She denies any skin changes, breast trauma,prior breast surgery or nipple discharge. Thefocal tenderness is improved in the breast. She does have a history of cystic breast tissue and has not had cysts aspirated or breast biopsies in the past. She does do regular self-breast exams. ROS: weight fluctuating and she feels she is retaining water. undergoing evaluation with GI for ongoing severe pain (negative work up with barium swallow, egd, colo, celiac currently).no hematachezia or BRBPR. No headaches, sob, adenopathy, lymphedema, sob, cough, musculoskeletal pains. Reproductive History: , had her first child at the age of 14 and did nurse her children. Menarche began at 11.Her LMP was 9. HRT/OC: none Family History: Negative for breast cancer. 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 Recently relocated to [facility] and struggling with new apartment [...] lymphedema. Breasts have a paucity of fat. Chest: CTA CV:RRR abd: soft, flat, non tender. Her breasts [...] a mass. No other discrete masses noted. . Her right breast exam is similar in character to her left breast,without discrete masses. New imaging: last u/s in 11/21 was normal- no additional follow up of the area was recommended. Assessment: 41 yo female with family history of breast cancer with ongoing improvement in clinical exam. Plan: Yumiko and I had previously discussed excisional biopsy for diagnostic and therapeutic purposes. Unfortunately, Yumiko has cancelled surgery on the day of surgery twice. Given continued improvement in both clinical exam and symptoms, I do not feel surgery is indicated at this time and Yumiko agrees. She will continue to monitor the area and if she notes any change in the mass and/or increased focal pain, she will call for additional follow up. documented in this encounter Plan of Treatment Upcoming Encounters Date Type Department Care Team (Late st Contact Info) Description 04/07/2024 3:20 PM EDT Office Visit Dermatology at [facility] [address] [place] [address] Dayanna Ramírez MD [facility] [address] [place] [address] documented as of this encounter Visit Diagnoses Diagnosis Breast mass- Primary Lump or mass in breast documented in this encounter
--- OUTSIDE RECORDS SUMMARY | 2024-03-20 22:11 | XMS_ITS | Encounter Summary ---
Author Organization [facility] [place] [address] Care Team Providers Care Director Of Music Therapy Name Role Phone Unavailable Primary Care Provider Unavailabl e Encounter Details Date Type Department Care Team (Late st Contact Info) Description 12/18/2011 11:00 AM EDT Office [place] [phone] Juliette Garza, VP DELIVERY [facility] DR GASTROENTER[place] [address] IBS (irritable bowel syndrome) (Primary Dx) Discharge Disposition: Home Social History [...] Sign Reading Time Taken Comments Blood Pressure 106/69 12/18/2011 11:10 AM EDT Pulse 69 12/18/2011 11:10 AM EDT Temperature - - Respiratory Rate 20 12/18/2011 11:10 AM EDT Oxygen Saturation - - Inhaled Oxygen Concentration - - Weight 52.2 kg (115 lb) 12/18/2011 11:10 AM EDT Height 156.2 cm (5' 1.5) 12/18/2011 11:10 AM ED T Body Mass Index 21.38 12/18/2011 11:10 AM EDT documented in this encounter Progress Notes * Kayla, Instructor, RN - 12/18/2011 11:44 AM EDT Section of Gastroenterology and Hepatology [address] [place], [place] [id number] .Yumiko Chang : 1970 Patient is here for further evaluation of gastrointestinal symptoms at the request of Yen Mccall MD. HPI: Pt has a long hx of ibs, dyspeptic sx. Early satiety, bloated, weight fluctuates 10 pounds, lack of appetite. Post-prandially has significant stomach pain. Nausea, but no vomiting. Upper endoscopy, August 2011, [facility], overall normal. Bx suggested very mild inflammation in the duodenum. Daily heartburn and regurgitation. No dysphagia, odynophagia, chest pain or ent concerns. No chronic nsaidsonly prn basis. No food allergies. She expresses frustration because she feels better when she doesnot eat, but at times will be starving, stomach growling, she will eat and then she will feel awful. Abdominal u/s, [facility], 2011, normal. Did have a long hx of constipation. However, since her colonoscopy in August 2011, she has been regular. No lower abdominal pain, incontinence, rectal bleeding. Colonoscopy normal. . History Social History ??? Marital Status: Spouse Name: N/A Number of Children: N/A ??? Years of Education: N/A Occupational History ??? Not on file. Social History Main Topics ??? Smoking status: Never Smoker ??? Smokeless tobacco: Not on file ??? Alcohol Use: No ??? Drug Use: ??? Sexually Active: Other Topics Concern ??? Not on file Social History Narrative ??? No narrative on file Medical History:RA, fibromyalgia, asthma, cervical cancer, endometriosis, gerd, dyspepsia, ibs Surgical History:tubal ligation Family History:no gi etiologies Allergies Allergen Reactions ??? Latex CIS - Rash, CIS - Rash ??? Penicillins CIS - Anaphylaxis, CIS - Anaphylaxis ??? Azithromycin CIS - Anaphylaxis, CIS - Anaphylaxis ??? Cis Free Text Allergy environmental. ??? Epinephrine CIS - fast heart rate, CIS - fast heart rate Current outpatient prescriptions:naproxen sodium (ANAPROX) 550 mg tablet, 550 MG = 1 Tablet(s), PO,Twice daily PRN, Disp: , Rfl: Review of Systems - Negative except General: Cardiac: Resp:asthma controlled GI:see above : MS: Neuro: Skin: Psyche: Sleep: Endo: Impression: Abdominal pain: ?celiac, Obtain ttg and other labs. ?diet intolerance, Fodmap diet. ?role of gerd/dyspepsia, protonix 20mg qd, 30 minutes before breakfast. ?functional dyspepsia ?need for tca. Pt to call me regarding progress. I spent a total of 61 minutes face to face with this patient; 34 minutes were spent counseling the patient in the medical problems described above. Sincerely, Juliette Garza NP Section of Gastroenterology and Hepatology documented in this encounter Plan of Treatment Upcoming Encounters Date Type Department Care Team (Late st Contact Info) Description 04/07/2024 3:20 PM EDT Office Visit Dermatology at [facility] [address] [place] [address] Dayanna Ramírez MD [facility] [address] [facility] [place] [address] documented as of this encounter Procedures Procedure Name Priority Date/Time Associated Diagnosis Comments DIFFERENTIAL, AUTOMATED Routine 12/18/2011 12:30 PM EDT IRON AND TIBC Routine 12/18/2011 12:30 PM EDT IBS (irritable bowel syndrome) TISSUE TRANSGLUTAMINASE, IGA Routine 12/18/2011 12:30 PM EDT IBS (irritable bowel syndrome) CBC (WITH DIFF) Routine 12/18/2011 12:30 PM EDT IBS (irritable bowel syndrome) FOLATE, SERUM Routine 12/18/2011 12:30 PM EDT IBS (irritable bowel syndrome) FERRITIN Routine 12/18/2011 12:30 PM EDT IBS (irritable bowel syndrome) VITAMIN B12 Routine 12/18/2011 12:30 PM EDT IBS (irritable bowel syndrome) COMPREHENSIVE METABOLIC PANEL Routine 12/18/2011 12:30 PM EDT IBS (irritable bowel syndrome) documented in this encounter Results * DIFFERENTIAL, AUTOMATED (12/18/2011 12:30 PM EDT) Neutrophil % 67.7 34.0 - 71.0 % CERNER MILLENNIUM Neutrophil Absolute 5.54 1.50 - 6.30 x10(3)/mcL CERNER MILLENNIUM Lymph % 25.5 19.0 - 53.0 % CERNER MILLENNIUM Lymphocytes Abs 2.1 1.0 - 3.6 x10(3)/mcL CERNER MILLENNIUM Monocyte % 5.1 4.0 - 13.0 % CERNER MILLENNIUM Monocyte Abs 0.4 0.2 - 1.0 x10(3)/mcL CERNER MILLENNIUM Eos % 1.1 0.0 - 7.0 % CERNER MILLENNIUM Eosinophils Abs 0.1 0.0 - 0.5 x10(3)/mcL CERNER MILLENNIUM Basophil % 0.6 0.0 - 2.0 % CERNER MILLENNIUM Baso Absolute 0.0 0.0 - 0.2 x10(3)/mcL CERNER MILLENNIUM Immature Gran % 0.00 0.00 - 0.66 % CERNER MILLENNIUM Comment: Immature granulocytes(IG's)percentage and absolute count will include metamyelocytes, myelocytes, and promyelocytes. Blood smears from CBCs yielding IG's will be scanned manually for concordance. If this scan disagrees with the automated IG or if promyelocytes are noted, a manual differential will be performed. Immature Gran Absolute 0.00 0.00 - 0.05 x10(3)/mcL CERNER MILLENNIUM Blood specimen (specimen) 12/18/2011 12:30 PM EDT 12/18/2011 12:34 PM EDT Pacheco Moran MD HEMATOLOGY ORDERABLE S CERNER TYRELLENNIUM * CBC (with Diff) (12/18/2011 12:30 PM EDT) White Blood Cell 8.2 4.0 - 10.0 x10(3)/mcL CERNER MILLENNIUM Red Blood Cell 4.31 3.93 - 5.22 x10(6)/mcL CERNER MILLENNIUM Hemoglobin 11.9 11.2 - 15.7 gm/dL CERNER MILLENNIUM Hematocrit 35.8 34.0 - 45.0 % CERNER MILLENNIUM Mean Cell Volume 83.1 79.0 - 94.0 fL CERNER MILLENNIUM Mean Cell Hemoglobin 27.6 26.6 - 32.2 pg CERNER MILLENNIUM Mean Cell Hemoglobin Concentration 33.2 32.0 - 36.5 gm/dL CERNER MILLENNIUM Platelet 229 145 - 370 x10(3)/mcL CERNER MILLENNIUM RDW Standard Deviation 38.8 35.0 - 46.0 fL CERNER MILLENNIUM RDW coefficient of variation 12.7 10.9 - 14.4 % CERNER MILLENNIUM Mean Platelet Volume 9.8 9.0 - 12.0 fL CERNER MILLENNIUM Blood specimen (specimen) 12/18/2011 12:30 PM EDT 12/18/2011 12:34 PM EDT Narrative Resulting Agency Comment Spec In Lab Pahceco Moran MD HEMATOLOGY ORDERABLE S Performing Organization Address City/[facility] Co de Phone Number [facility] * Folate, serum (12/18/2011 12:30 PM EDT) Pathologist [facility] Folate 10.2 7.4 - 35.0 ng/mL [facility] MILLENNIUM Blood specimen (specimen) 12/18/2011 12:30 PM EDT 12/18/2011 12:34 PM EDT Narrative Resulting Agency Comment Spec In Lab Pacheco Moran MD CHEMISTRY ORDERABLES [facility] * Vitamin B12 (12/18/2011 12:30 PM EDT) Pathologist [facility] Vitamin B12 752 207 - 974 pg/mL CERNER MILLENNIUM Blood specimen (specimen) 12/18/2011 12:30 PM EDT 12/18/2011 12:34 PM EDT Narrative Resulting Agency Comment Spec In Lab Pacheco Moran MD CHEMISTRY ORDERABLES Performing Organization Address [facility] Co de Phone Number [facility] * Ferritin (12/18/2011 12:30 PM EDT) Ferritin 21 15 - 150 ng/mL [facility] Comment: Pediatric reference ranges not verified at [facility], interpret with caution. Reference ranges for females greater than 50 years of age approach values for men, i.e., 30-400 ng/mL. Blood specimen (specimen) 12/18/2011 12:30 PM EDT 12/18/2011 12:34 PM EDT Narrative Resulting Agency Comment Spec In Lab Pacheco Moran MD CHEMISTRY ORDERABLES Performing Organization Address [facility] Co de Phone Number [facility] * Iron and TIBC (12/18/2011 12:30 PM EDT) Iron 87 30 - 150 mcg/dL [facility] TIBC 344 250 - 450 mcg/dL [facility] Iron Saturation 25 20 - 50 % [facility] MILLENNIUM Blood specimen (specimen) 12/18/2011 12:30 PM EDT 12/18/2011 12:34 PM EDT Narrative Resulting Agency Comment Spec In Lab Pacheco Moran MD CHEMISTRY ORDERABLES Performing Organization Address City/[facility]/ZIP Co de Phone Number [facility] * (ABNORMAL) Comprehensive metabolic panel (non-fasting) (12/18/2011 12:30 PM EDT) Glucose 83 60 - 199 mg/dL [facility] Comment:Diabetes: >=200 mg/d L plus symptoms Blood Urea Nitrogen 13 8 - 18 mg/dL [facility] Creatinine 0.81 0.70 - 1.20 mg/dL [facility] Sodium 137 135 - 145 mmol/L CERNER MILLENNIUM Potassium 3.4(L) 3.5 - 5.0 mmol/L CERNER MILLENNIUM Comment: Please note: ??Patients with WBC >100,000 may have falsely elevated Potassium levels. ??For accurate Potassium quantification in these patients send serum separator tube (gold top) for subsequent determinations. ??Contact the Clinical Chemistry Laboratory if there are any questions. Chloride 100 98 - 107 mmol/L CERNER MILLENNIUM Carbon Dioxide 26 22 - 31 mmol/L CERNER MILLENNIUM Anion Gap 11 5 - 15 mmol/L CERNER MILLENNIUM Calcium 9.2 8.5 - 10.5 mg/dL CERNER MILLENNIUM Protein, Total 6.9 6.4 - 8.3 gm/dL CERNER MILLENNIUM Albumin 4.4 3.2 - 5.2 gm/dL CERNER MILLENNIUM Aspartate Aminotransferase 26 0 - 30 unit/L CERNER MILLENNIUM Alanine Aminotransferase 16 0 - 30 unit/L CERNER MILLENNIUM Alkaline Phosphatase 55 40 - 104 unit/L CERNER MILLENNIUM Bilirubin, Total 0.8 0.2 - 1.3 mg/dL CERNER MILLENNIUM Bilirubin, Direct 0.1 0.0 - 0.3 mg/dL CERNER MILLENNIUM Est Glomerular Filtration Rate >60 >=60 CERNER MILLENNIUM Comment: The National Kidney Disease Education Program (NKDEP) has recommended all laboratories report estimated GFR (eGFR) along with plasma creatinine measurements to assist you with recognition of early kidney disease. Caveats: ??Plasma creatinine should be at steady-state (unchanged within the past week). For patients multiply eGFR by 1.2. The MDRD equation was developed using patients between the ages of 18 and 70 years. ?? The MDRD equation has not been validated for patients < 18 years of age and should not be used to assess renal function in the pediatric population. ??The MDRD eGFR equation will also overestimate the true GFR of patients above the age of 70. ??This overestimation is variable but increases with age. At present, NKDEP does NOT recommend using the MDRD equation for drug dosing purposes and pharmacists should continue to use their current dosing methods. In addition, numerical eGFR values greater than 60 ml/min/1.73 square meters should be treated as > 60, and not an exact number due to greater inaccuracies at these higher values. Per NKDEP, they classify normal renal function as any GFR >60ml/min/1.73 square meters; chronic kidney disease when GFR <60, and renal failure when GFR <15. ??This calculation may not be valid for patients with atypical muscle mass (very lean or obese), acute renal failure, and in patients with diabetic kidney disease. References: http://nkdep.nih.gov/resources/NKDEP_Suggestn4Labs_0606_508.pdf http://www.kidney.org/professionals/kls/pdf/faq_gfr.pdf Dylon K, Carol Ann NA, Manpreet AK, Harshal TS, Sherri AD, Anthony FE. Relative performance of the MDRD and CKD-EPI equations for estimating glomerular filtration rate among patients with varied clinical presentations. Clin J Am Soc Nephrol;6:1963-72. Blood specimen (specimen) 12/18/2011 12:30 PM EDT 12/18/2011 12:34 PM EDT Narrative Resulting Agency Comment Spec In Lab Pacheco Moran MD CHEMISTRY ORDERABLES Performing Organization Address [facility] de Phone Number [facility] [employer] * Tissue transglutaminase, IgA (12/18/2011 12:30 PM EDT) TTG IgA Ab <4.0 <=3.9 u/ml [facility] Advice WalletENNIUM Comment: Result Interpretation: Negative: ?<4 U/mL Weak Positive: ??4-10 U/mL Positive: ?>10 U/mL Blood specimen (specimen) 12/18/2011 12:30 PM EDT 12/18/2011 2:23 PM EDT Narrative Resulting Agency Comment Spec In Lab Pacheco Moran MD IMMUNOLOGY ORDERABLE S Performing Organization Address [facility] de Phone Number [facility] documented in this encounter Visit Diagnoses Diagnosis IBS (irritable bowel syndrome)- Primary Irritable bowel syndrome documented in this encounter
--- OUTSIDE RECORDS SUMMARY | 2024-03-20 22:11 | XMS_ITS | Encounter Summary ---
Author Organization [facility] [place] [address] Care Team Providers Care Guest Relations Receptionist Name Role Phone Unavailable Primary Care Provider Unavailabl e Encounter Details Date Type Department Care Team (Late st Contact Info) Description 12/20/2012 Orders [place] [address] Jessica Toscano APRN [facility] [place] [address] Mass (Primary Dx) Social History Tobacco Use Types [...] For The [facility] Ins[facility] [address] [place] [address] Dayanna Ramírez MD [facility] [place] [address] documented as of this encounter Results * Mammo breast US unilateral bilateral (12/26/2012 3:55 PM EDT) Anatomical Region Laterality Modality Breast N/A Mammography 12/26/2012 3:55 PM EDT Impressions 12/27/2012 11:05 AM EDT [...] Mer Morgan MD IMG MAMMO ORDERABLE S * Mammo digital bilateral diagnostic with CAD [...] documented in this encounter Visit Diagnoses Diagnosis Mass- Primary Localized superficial swelling, mass, or lump Mass Localized superficial swelling, mass, or lump Mass Localized superficial swelling, mass, or lump documented in this encounter
--- OUTSIDE RECORDS SUMMARY | 2024-03-20 22:11 | XMS_ITS | Encounter Summary ---
Author Organization [facility] [place] [address] Care Team Providers Care Safety Officer Name Role Phone Unavailable Primary Care Provider Unavailabl e Encounter Details Date Type Department Care Team (Late st Contact Info) Description 07/26/2010 1:00 PM EST Office Visit Obstetrics [place] [address] Luis Morrissey MD [facility] DR OBSTETRICS & [place] [address] Discharge Disposition: Home Social History Tobacco Use [...] at [facility] [address] [place] [address] Dayanna Ramírez MD [facility] [address] [place] [address] documented as of this encounter Visit Diagnoses Not on filedocumented in this encounter
--- OUTSIDE RECORDS SUMMARY | 2024-03-20 22:11 | XMS_ITS | Encounter Summary ---
Author Organization [facility] Address [facility] [place] [address] Care Team Providers Care Shaker Operator Name Role Phone Unavailable Primary Care Provider Unavailabl e Encounter Details Date Type Department Care Team (Late st Contact Info) Description 12/26/2012 2:35 PM EDT - 12/26/2012 11:59 PM EDT Hospital En[place] [phone] [place] Social History Tobacco Use Types Packs/Day Years [...] Dermatology at [facility] [address] [place] [address] Dayanna Ramírez MD [facility] [address] [place] [address] documented as of this encounter Procedures Procedure Name Priority Date/Time Associated Diagnosis Comments MAMMO BREAST US LIMITED Routine 12/26/2012 3:55 PM EDT Mass documented in this encounter Results * Mammo breast US [...]
--- OUTSIDE RECORDS SUMMARY | 2024-03-20 22:11 | XMS_ITS | Encounter Summary ---
Author Organization [facility] [place] [address] Care Team Providers Care Fountain Dispenser Name Role Phone Unavailable Primary Care Provider Unavailabl e Encounter Details Date Type Department Care Team (Late st Contact Info) Description 11/16/2010 2:30 PM EDT Procedure visit [address] [address] Social History Tobacco Use Types Packs/Day Years [...] Dermatology at [facility] [address] [place] [address] Dayanna Ramírez MD [facility] [place] [address] documented as of this encounter Visit Diagnoses Not on filedocumented in this encounter
--- OUTSIDE RECORDS SUMMARY | 2024-03-20 22:11 | XMS_ITS | Encounter Summary ---
Author Organization [facility] Address [facility] [place] [address] Care Team Providers Care Veneer Stock Layer Name Role Phone Unavailable Primary Care Provider Unavailabl e Reason for Visit * Reason Comments Gynecologic Exam Encounter Details Date Type Department Care Team (Late st Contact Info) Description 12/26/2013 12:00 PM EDT Office Visit Obstetrics [place] [address] Jordyn Chambers APRN [facility] [place] [address] Screen for STD (sexually transmitted disease); Irregular bleeding; Cervical cancer screening; NEENA (juvenile idiopathic arthritis) Discharge Disposition: Home Social History Tobacco Use [...] Sign Reading Time Taken Comments Blood Pressure 104/56 12/26/2013 11:57 AM EDT Pulse 76 12/26/2013 11:57 AM EDT Temperature - - Respiratory Rate - - Oxygen Saturation - - Inhaled Oxygen Concentration - - Weight 57.7 kg (127 lb 4.8 oz) 12/26/2013 11:57 AM EDT Height 154.9 cm (5' 1) 12/26/2013 11:57 AM EDT Body Mass Index 24.05 12/26/2013 11:57 AM EDT documented in this encounter Progress Notes * Jordyn Chambers, CLEARING SUPERVISOR - 12/26/2013 12:07 PM EDT Yumiko De Leon [id number] MARGARET TAI MD 12/26/2013 Gynecologic Exam Yumiko De Leon is a 43 y.o. woman who presents today for a gynecological exam. AUTHORS MOTIVATIONAL History: Cycles had been regular until last year.Menses are becoming heavier with more cramps. Hx of fibroids in past. She reports that she missed her menses in June and July 2013, then had 2 menses the next month, and this cycle has occurred several times. Has also been experiencing hot flashes/night sweats that are disrupting her life. Wants to try HRT. Does not want OCs, as had nausea and otherside effects with these in the past. Understands that HRT will not regulate her cycles and may cause additional irregular spotting. We also discussed trying a Mirena with an estrogen pill or patch- patient is not interested in an IUD. Hx of LEEP in 2005, with normal paps since that time. Last pap 2011- wants a pap today. Sexually active with a new partner of 4-5 months. She has concerns r/t STDs, as he has had 4 other partners while he has been with her. Hx of BTL for control. No bladder, or bowel concerns/complaints. Hx of cystic breasts, being followed by Dr. Morgan. PMH: RA Past Surgical History Procedure Date ??? Created by interface 1987 Daignostic laparoscopy for pelvic pain Procedure Date: 01/01/2009 ??? Created by interface 1989 BTL Procedure Date: 01/01/2009 ??? Created by interface 1999 IVF (twin gestation) Procedure Date: 01/01/2009 ??? Created by interface LEEP WINIFRED 2006 Procedure Date: 01/01/2009 ??? Upper gi endoscopy, biopsy 09/07/2011 EGD WITH BIOPSY performed by Desmond WHIPPLE at [facility] ENDOSCOPY ??? Colonoscopy, biopsy 09/07/2011 COLONOSCOPY FLEXIBLE, WITH BX performed by Desmond WHIPPLE at [facility] ENDOSCOPY Health Related Habits: Nonsmoker. Occasional glass of wine- ETOH use. Exercise: active Social History: single mother- at home with kids, 24 yr old disabled as well as one of her twins. Family History: Ovarian cancer- MGM Hrt disease in men Outpatient Prescriptions Marked as Taking for the 12/26/13 encounter (Office Visit) with Jordyn Chambers APRN Medication Sig Dispense Refill ??? naproxen sodium (ANAPROX) 550 mg tablet Take 1 tablet by mouth 2 times daily as needed. 60 tablet 11 Allergies as of 12/26/2013 - Review Complete 12/26/2013 Allergen Reaction Noted ??? Latex ??? Azithromycin ??? Penicillins ??? Cis free text allergy ??? Epinephrine Physical Examination: BP 104/56 Pulse 76 Ht 154.9 cm (5' 1) Wt 57.743 kg (127 lb 4.8 oz) BMI 24.07 kg/m2 LMP 12/12/2013 Pelvic External genitalia: normal appearance, no fusion noted BSU: normal Vagina: normal with no lesions Cervix: no CMT, pink Uterus: A/V, normal size, shape and consistency Adnexa: nontender, no masses palpated Rectovaginal exam: not done. Endometrial bx procedure: Following a brief verbal description of the procedure, verbal consent was obtained from the patient. She stated her name, date of , and procedure to be performed in a time out procedure prior to beginning. A speculum was placed in the vagina without difficulty visualizing the cervix. A single-tooth tenaculum was placed on the anterior lip of the cervix. A pipelle was placed through the cervix without difficulty. A biopsy was obtained in 360 degree fashion. Tissue was placed into formalin for pathologic specimen and labeled with her name and date of . The patient tolerated the procedure well with minimal bleeding. Impression: Normal venetian blind assembler exam, hx of irregular cycles over the last 6 months. Concerns for STIs Hot flashes Plan: Health Maintenance: Pap smear /HPV /Gc/chalmydia tests done today.HIV order for lab draw. Endometrial bx done, patient tolerated ok, had cramps, given 800 ibuprofen before she left. HRT ordered- estrace 1 mg daily with prometrium 200 mg on day 1-12 of each month. TVUS ordered to be done at end of her menses. USe condoms with this partner. documented in this encounter Plan of Treatment Upcoming Encounters Date Type Department Care Team (Late st Contact Info) Description 04/07/2024 3:20 PM EDT Office Visit Dermatology at [address] [place] [phone] Dayanna Ramírez MD [facility] [place] [address] documented as of this encounter Procedures Procedure Name Priority Date/Time Associated Diagnosis Comments GC/CHLAMYDIA Routine 12/26/2013 3:44 PM EDT Screen for STD (sexually transmitted disease) GC/CHLAM Routine 12/26/2013 3:44 PM EDT Screen for STD (sexually transmitted disease) HIV SCREEN, 4TH GENERATION ([facility]/CGP/APD/NLH) Routine 12/26/2013 1:25 PM EDT Screen for STD (sexually transmitted disease) SPECIMEN TO PATHOLOGY (NON-OR) Routine 12/26/2013 1:07 PM EDT Irregular bleeding REGISTERED DIETETIC TECHNICIAN MOLECULAR GENETICS REPORT Routine 12/26/2013 1:07 PM EDT REGISTERED DIETETIC TECHNICIAN CYTOLOGY FINAL REPORT Routine 12/26/2013 1:07 PM EDT SURGICAL PATHOLOGY REPORT Routine 12/26/2013 1:07 PM EDT CYTOPATHOLOGY GYNECOLOGICAL Routine 12/26/2013 1:07 PM EDT Cervical cancer screening documented in this encounter Results * GC/Chlam (12/26/2013 3:44 PM EDT) GC Gene Amp Negative Negative CERNER MILLENNIUM Comment: The only FDA approved specimen types for this assay are cervix, vagina, urethra and urine. ??The sensitivity and specificity of the assay for other specimen types has not been determined. GC Source Cervical CERNER MILLENNIUM Chlamydia Gene Amp Negative Negative CERNER MILLENNIUM Comment: The only FDA approved specimen types for this assay are cervix, vagina, urethra and urine. ??The sensitivity and specificity of the assay for other specimen types has not been determined. Chlm Source Cervical [facility] Specimen of unknown material (specimen) 12/26/2013 3:44 PM EDT 12/26/2013 3:44 PM EDT Narrative Resulting Agency Comment Spec In Lab Maryan West MD MICROBIOLOGY - GENE RAL ORDERABLES [facility] * HIV (12/26/2013 1:25 PM EDT) HIV 1/2 Ab Negative Negative [facility] Blood specimen (specimen) 12/26/2013 1:25 PM EDT 12/26/2013 1:29 PM EDT Narrative Resulting Agency Comment Spec In Lab Maryan West MD CHEMISTRY ORDERABLE S Performing Organization Address City/[facility]/ZIP Co de Phone Number [facility] * Traverse Rod Assembler Cytology Final Report (12/26/2013 1:07 PM EDT) Traverse Rod Assembler Cytology Final Report ? [facility] ? Provider: ?? JORDYN CHAMBERS ?? Pt. Name: ?? YUMIKO DE LEON ? Acc #: ?[id number] ?Pt. ? Col Date: ?? 12/26/2013 ? /Sex: ?1970,(43 years),Female ? Rec Date: ?? 12/26/2013 ? LOC: ?5L ? CYTOPATHOLOGY: ??REGISTERED DIETETIC TECHNICIAN ? ---Adequacy--- ? Specimen submitted is satisfactory. ? Endocervical component present. ? ---Cytopathologic Diagnosis--- ? Infection and/or Reactive Repair Process. ? Note: ??Reactive changes are present in the epithelial cells (benign ? cellular changes). ??This Pap test is negative for intraepithelial lesion ? or malignancy. (NILM) ? 01/01/14 ?? Screened by: ??REP ??EJG ? 01/02/14 ?? Verified by: ??Liu Tavarez MD - Cytopathologist ? ---Comment--- ? Predominance of coccobacilli consistent with shift in vaginal jitendra. ? Please also see concurrent HPV test result. ? ---Clinical Information--- ? HPV Option: ? Concurrent HPV ? Preparation: ?Liquid Based Pap ? Specimen Source: ?Cervical Endocervical LBP ? LMP: ?5-2-14 ? Hormones?: ?No ? Hysterectomy?: ?No ?: ?No ?: ?No ? I.U.D.?: ?No ? Pelvic Radiation: ? No ? Prior REGISTERED DIETETIC TECHNICIAN Therapy?: ? Cryotherapy ? Hist Abnl Pap/Biopsy?: ??Yes, history of previous abnormal Pap ? Hist of HPV Vaccine?: ?? No ? Hist of Smoking?: ? No ? Hist of CAMERON exposure?: ??No ? Clinical Data, Significant Therapy and Clinical Impression: ? This Pap Test has been evaluated with the assistance of the ThinPrep Pap ? Test Imaging System. ? Note: ? [facility] ? Provider: ?? JORDYN CHAMBERS ?? Pt. Name: ?? YUMIKO DE LEON ? Acc #: ?[id number] ?Pt. ? Col Date: ?? 12/26/2013 ? /Sex: ?1970,(43 years),Female ? Rec Date: ?? 12/26/2013 ? LOC: ?5L ? CYTOPATHOLOGY: ??REGISTERED DIETETIC TECHNICIAN ? The Pap test is a screening test for cervical cancer with an inherent ? false-negative rate dependent upon several variables. ??For further ? information please contact the [facility]. ? Reference: ??Jacquelyn CS. ??Certified Detention Deputy of Pap Smear Results. ??In: ? Felipe BS, Bob HH, ed. ??The Pap Smear. ??[place]: ??Suraj, 2002: ? 71-77. MADELINE [facility] 12/26/2013 1:07 PM EDT Jordyn Chambers CLEARING SUPERVISOR PATHOLOGY/CYTOLOGY ORDERABLES [facility] * REGISTERED DIETETIC TECHNICIAN Molecular Genetics Report (12/26/2013 1:07 PM EDT) REGISTERED DIETETIC TECHNICIAN Molecular Genetics Report ? [facility] ? Provider: ?? JORDYN CHAMBERS ?? Pt. Name: ?? YUMIKO DE LEON ? Acc #: ?[id number] ?Pt. ? Col Date: ?? 12/26/2013 ? /Sex: ?1970,(43 years),Female ? Rec Date: ?? 12/26/2013 ? LOC: ?5L ? MOLECULAR GENETIC STUDIES ? ---REPORT OF DNA ANALYSIS--- ? Doug Hebert?? HPV test ? NEGATIVE for high-risk HPV *. ? It is recommended that patients with ASCUS cytology and a negative test for ? high-risk HPV undergo further evaluation according to current practice ? guidelines. ??* Testing negative for high risk HPV means that the specimen ? is negative for the following 14 types tested: ??types 16, 18, 31, 33, 35, ? 39, 45, 51, 52, 56, 58, 59, 66, and 68. ??The test is not intended to detect ? low risk HPV types. ? Specimen: HPV Testing - Cytology Liquid Based Prep ? Reviewed by: ??Suraj Solorio, [facility] CenterYesenia ? A ? KIERA Cerv-Endocerv LBP ? B ? HPVDO Do HPV Testing ? Verified date: ??01/01/14 ??ABH ? Verified by: ?Lab Review, Molecular Genetics ? (Electronic Signature) MADELINE DIAZ 12/26/2013 1:07 PM EDT Jordyn Chambers CLEARING SUPERVISOR PATHOLOGY/CYTOLOGY ORDERABLES [facility] * Surgical Pathology Report (12/26/2013 1:07 PM EDT) Final Diagnosis ? [facility] ? Provider: ?? JORDYN CHAMBERS ?? Pt. Name: ?? YUMIKO DE LEON ? Acc #: ?[id number] ?Pt. ? Col Date: ?? 12/26/2013 ? /Sex: ?1970,(43 years),Female ? Rec Date: ?? 12/26/2013 ? LOC: ?5L ? SURGICAL PATHOLOGY ? ---Pathologic Diagnosis--- ? Endometrial biopsy: ?1. Fragments of benign proliferative endometrium intermixed ? with blood clot, mucus, and endocervical mucosa. ?2. No evidence of hyperplasia or endometritis. ? CR-0 ? 12/30/13 ? JLG ? 12/30/13 Verified by: ? Reid RIVERA, Martinez Nugent ? Pathologist ? (Electronic Signature) ? The attending pathologist whose signature appears on this report has ? reviewed all diagnostic slides and has edited the gross and/or ? microscopic portion of the report in rendering the final pathologic ? diagnosis. ? ---Gross Description--- ? A - Labeled/Fixative: Patient demographics, formalin. ? Quantity/Size: Fragments, 2.0 x 1.0 x 0.4 cm. ? Tissue Description: Soft, red tissues and mucus. ? Sections/Processi ng: (T1) ??sns ? ---Clinical Information--- ? Specimen Submitted: ? A - EMB ? Clinical History: ? Irregular bleeding ? Clinical Diagnosis: ? Rule out hyperplasia, cancer 12/30/2013 12:10 PM EDT [facility] ENDOMETRIAL STRUCTURE / Unknown 12/26/2013 1:07 PM EDT 12/26/2013 1:07 PM EDT Jordyn Chambers APRN PATHOLOGY/CYTOLOGY ORDERABLES BONNYJESSENIA SANTILLANAMAN [facility] [place] [address] * Specimen to Pathology (NON-OR) (12/26/2013 1:07 PM EDT) AP Specimen 12/26/2013 1:07 PM EDT 12/26/2013 1:07 PM EDT Narrative MADELINE TYRELLJESSICAIUM - 12/26/2013 1:07 PM EDT Specimen requisition ordered. ??Separate Pathology report to follow Maryan West MD PATHOLOGY/CYTOLOGY ORDERABLES Performing Organization Address [facility]/ZIP Co de Phone Number MADELINE DIAZ * Cytopathology Gynecological (12/26/2013 1:07 PM EDT) AP Specimen 12/26/2013 1:07 PM EDT 12/26/2013 1:07 PM EDT Narrative MADELINE TYRELLJESSICAIUM - 12/26/2013 1:07 PM EDT Specimen requisition ordered. ??Separate Pathology report to follow Maryan West MD PATHOLOGY/CYTOLOGY ORDERABLES Performing Organization Address City/[facility]/ZIP Co de Phone Number MADELINE DIAZ documented in this encounter Visit Diagnoses Diagnosis Screen for STD (sexually transmitted disease) Screening examination for venereal disease Irregular bleeding Irregular menstrual cycle Cervical cancer screening Screening for malignant neoplasm of the cervix NEENA (juvenile idiopathic arthritis) Other specified inflammatory polyarthropathies documented in this encounter
--- OUTSIDE RECORDS SUMMARY | 2024-03-20 22:11 | XMS_ITS | Encounter Summary ---
Author Organization [facility] [place] [address] Care Team Providers Care Bath Steward/Stewardess Name Role Phone Unavailable Primary Care Provider Unavailabl e Reason for Visit * Reason Onset Date Comments Other 10/24/2011 check patient GI symptoms Encounter Details Date Type Department Care Team ([facility] Contact Info) Description 10/24/2011 Telephone [place] [phone] Juliette Garza APRN [facility] [place] [address] Other (check patient GI symptoms) Social History Tobacco Use Types Packs/Day Years [...] Encounter - Renetta Lewis RN - 10/24/2011 11:30 AM EDT Called patient to check GI symptoms if resolved or unresolved. Unable to contact patient. Left message on patient voice mail with GI phone number: [phone] documented in this encounter Plan of Treatment Upcoming Encounters Date Type Department Care Team ([facility] Contact Info) Description 04/07/2024 3:20 PM EDT Office Visit Dermatology at [facility] [address] [place] [address] Dayanna Ramírez MD [facility] [place] [address] documented as of this encounter Visit Diagnoses Not on filedocumented in this encounter
--- OUTSIDE RECORDS SUMMARY | 2024-03-20 22:11 | XMS_ITS | Encounter Summary ---
Author Organization [facility] [place] [address] Care Team Providers Care Dividend Deposit Entry Clerk Name Role Phone Unavailable Primary Care Provider Unavailabl e Reason for Visit * Reason Onset Date Comments Medication Refill 07/22/2013 Encounter Details Date Type Department Care Team (Late st Contact Info) Description 07/22/2013 [place] [address] Iker Montgomery MD [facility] [place] [address] ENENA (juvenile idiopathic arthritis) (Primary Dx) Social History [...] at [facility] [address] [place] [address] Dayanna Ramírez MD [facility] [address] [place] [address] documented as of this encounter Visit Diagnoses Diagnosis NEENA (juvenile idiopathic arthritis)- Primary Other specified inflammatory polyarthropathies documented in this encounter
--- OUTSIDE RECORDS SUMMARY | 2024-03-20 22:11 | XMS_ITS | Encounter Summary ---
Author Organization [facility] Address [facility] [place] [address] Care Team Providers Care Net Mender Name Role Phone Unavailable Primary Care Provider Unavailabl e Encounter Details Date Type Department Care Team (Latest Contact Info) Description 09/07/2011 1:18 PM EST - 09/07/2011 5:30 PM EST Hospital Encounter [place] [address] Pacheco Moran MD [facility] DR [place] [address] Pepe Arrington MD [facility] [place] [address] Desmond Whipple MD [facility] [place] [address] Discharge Disposition: Home Social History Tobacco Use [...] 3:20 PM EDT Office Visit Dermatology at [facility] [address] [place] [address] Dayanna Ramírez MD [facility] [address] [place] [address] documented as of this encounter Procedures Procedure [...] 6:39 PM EST) Surgical Pathology Report ? [facility] ? Provider: ?? Desmond WHIPPLE ?Pt. Name: ?? YUMIKO DE LEON ? Acc #: ?[id number] ?Pt. ? Col Date: ?? 09/07/2011 ? [...] 0.1 cm to 0.3 cm in ? [facility] ? Provider: ?? Desmond WHIPPLE ?Pt. Name: ?? YUIMKO DE LEON ? Acc #: ?[id number] ?Pt. ? Col Date: ?? 09/07/2011 ? [...] MD PATHOLOGY/CYTOLOGY O CIRO Performing Organization Address [facility] Phone Number MADELINE PARKSIUM * Specimen to Pathology (surgical or derm) (09/07/2011 4:19 PM EST) AP Specimen 09/07/2011 4:19 PM EST 09/07/2011 4:19 PM EST Narrative CERNER MILLENNIUM - 09/07/2011 4:19 PM EST Specimen requisition ordered. ??Separate Pathology report to follow L Charles Whipple MD PATHOLOGY/CYTOLOGY O CIRO Performing Organization Address [facility] Phone Number CERJESSENIA PARKSIUM * Specimen to Pathology (surgical or derm) (09/07/2011 4:19 PM EST) AP Specimen 09/07/2011 4:19 PM EST 09/07/2011 4:19 PM EST Narrative CERNER MILLENNIUM - 09/07/2011 4:19 PM EST Specimen requisition ordered. ??Separate Pathology report to follow L Charles Whipple MD PATHOLOGY/CYTOLOGY O CIRO Performing Organization Address [facility] de Phone Number CERJESSENIA SANTILLANENNIUM * Specimen to Pathology (surgical or derm) (09/07/2011 4:19 PM EST) AP Specimen 09/07/2011 4:19 PM EST 09/07/2011 4:19 PM EST Narrative MADELINE DIAZ - 09/07/2011 4:19 PM EST Specimen requisition ordered. ??Separate Pathology report to follow L Charles Whipple MD PATHOLOGY/CYTOLOGY Elton TANNER MADELINE DIAZ * COLONOSCOPY (09/07/2011 2:53 PM EST) COLONOSCOPY [facility] Endoscopy Patient Name: Yumiko De Leno ? Procedure Date: 09/07/2011 2:53 PM ? N: [id number] ? Date of : 1970 ? Age: 41 ? Order #: [id number] ? Procedure: ? Colonoscopy Indications: ? Generalized abdominal pain, Diarrhea Providers: ? Desmond Whipple MD, Adonis Stark, ? RN, Linda Dubois, District Plant Supervisor Referring MD: ?Juliette Villegas MD Medicines: ? Midazolam 1 mg IV, [...] pathology results. ? - Follow-up with Ms. CondeSandro. ? _ L Charles Whipple MD 09/07/2011 4:21 PM Number of Addenda: 0 Note Initiated On: 09/07/2011 2:53 PM PROVATION 09/07/2011 2:53 PM EST Juliette Kayla ADMINISTRATIVE ACCOUNTANT GENERAL SURGICAL ORD ERABLES PROVATION * UPPER GI ENDOSCOPY (09/07/2011 2:50 PM EST) UPPER GI ENDOSCOPY [facility] Endoscopy Patient Name: Yumiko De Leon ? Procedure Date: 09/07/2011 2:50 PM ? Date of : 1970 ? Age: 41 ? Order #: [id number] ? Procedure: ? Upper GI endoscopy Indications: ? Generalized abdominal pain Providers: ? L Charles Whipple MD, Adonis Stark, ? RNLinad, District Plant Supervisor Referring : ?Yen Mccall MD, Tracia ? MD Kayla Medicines: ? Midazolam 4 mg IV, Fentanyl [...] Date Dose Rate Site lactated ringers infusion 100 mL/hr, Intravenous, CONTINUOUS, Starting on Khalida 09/07/11 at 1415, Until Khalida 09/07/11 at 2209, Endoscopy (Day of Procedure) New Bag 09/07/2011 1:56 PM EST 100 mL/hr 100 mL/hr documented in this encounter Active and Recently [...] Adonis Stark RN)1538 (Given - Provider: Adonis Stark, GUILLE) fentaNYL 50mcg/mL injection (CANCELED) ONCE PRN, Starting on Khalida 09/07/11 at 1525, Until Khalida 09/07/11 at 2209, Pain, Intra-Operative (Intra-Procedure), Routine 1525 (Given - Provid er: Adonis Stark RN)1528 (Given - Provider: Adonis Stark, GUILLE)1538 (Given - Provider: Adonis Stark RN)1544 (Given [...]
--- OUTSIDE RECORDS SUMMARY | 2024-03-20 22:11 | XMS_ITS | Encounter Summary ---
Author Organization [facility] Address [facility] [place] [address] Care Team Providers Care Dehydration Unit Operator Name Role Phone Unavailable Primary Care Provider Unavailabl e Reason for Visit * Reason Onset Date Comments Follow-up 12/30/2012 Encounter Details Date Type Department Care Team (Late st Contact Info) Description 12/30/2012 Telephone [place] [phone] Jessica Toscano APRN [facility] [place] [address] Follow-up Social History Tobacco Use Types Packs/Day [...] Telephone Encounter - Jessica Toscano APRN - 12/30/2012 8:17 AM EDT I called Yumiko to discuss follow up after her breast imaging was done which was normal. She is relieved by this but would still like to have the tissue removed. I will arrange for an appt with Dr Morgan so this can be discussed in more detail. documented in this encounter Plan of Treatment Upcoming Encounters Date Type Department Care Team (Late st Contact Info) Description 04/07/2024 3:20 PM EDT Office Visit Dermatology at [facility] [address] [place] [address] Dayanna Ramírez MD [facility] DR [facility]NE [place] [address] documented as of this encounter Visit Diagnoses Not on filedocumented in this encounter
--- OUTSIDE RECORDS SUMMARY | 2024-03-20 22:11 | XMS_ITS | Encounter Summary ---
Author Organization [facility] Address [facility] [place] [address] Care Team Providers Care Principal Accounts Clerk Name Role Phone Unavailable Primary Care Provider Unavailabl e Encounter Details Date Type Department Care Team (Latest Contact Info) Description 11/16/2010 1:39 PM EDT - 11/16/2010 11:59 PM EDT Hospital Encounter [place] [phone] Mer Morgan MD [facility] [address] Discharge Disposition: Home Social History Tobacco Use [...] 3:20 PM EDT Office Visit Dermatology at [facility] [address] [place] [phone] Dayanna Ramírez MD [facility] [place] [address] documented as of this encounter Visit Diagnoses Not on filedocumented in this encounter
--- OUTSIDE RECORDS SUMMARY | 2024-03-20 22:11 | XMS_ITS | Encounter Summary ---
Author Organization [facility] [place] [address] Care Team Providers Care Environmental Scientist Name Role Phone Unavailable Primary Care Provider Unavailabl e Reason for Visit * Reason Comments Gynecologic Exam colonoscopy 08/2011,p ap 09/2009 wnl, elisa 11/21 Encounter Details Date Type Department Care Team (Late st Contact Info) Description 10/31/2011 11:15 AM EDT Office Visit Obstetrics [place] [address] Jessica Feliz APRN [facility] [place] [address] Routine general medical examination at a health care facility (Primary Dx) Discharge Disposition: Home Social History [...] Sign Reading Time Taken Comments Blood Pressure 110/60 10/31/2011 11:01 AM EDT Pulse - - Temperature - - Respiratory Rate - - Oxygen Saturation - - Inhaled Oxygen Concentration - - Weight 57.2 kg (126 lb) 10/31/2011 11:01 AM EDT Height 154.9 cm (5' 1) 10/31/2011 11:01 AM EDT Body Mass Index 23.81 10/31/2011 11:01 AM EDT documented in this encounter Progress Notes * Jessica Feliz APRN - 10/31/2011 1:49 PM EDT Patient Active Problem List Diagnoses Code ??? CIS - Abnormal Reproductive Tract Bleeding ??? CIS - asthma ??? CIS - Fibromyalgia ??? CIS - GERD ??? CIS - PTSD ??? CIS - Restless leg syndrome ??? CIS - Stress and urge incontinence ??? Breast pain 611.71B S: 41 year old who comes to clinic today for well woman exam. Last pap 2009 normal, Had LEEP in 2005 paps normal since. Menses monthly no change. BTL for control. Sexually active. Having breast lumpectomy next week for persistant mass that has low suspicion but has been followedby Dr. Tan. No increase in SUKHWINDER. Still feels vaginal lump on left, this has not been able josé miguel corroborated in a clinical exam by Dr. Vergara or Dr. Morrissey. Past Surgical History Procedure Date ??? Created by interface 1987 Daignostic laparoscopy for pelvic pain Procedure Date: 01/01/2009 ??? Created by interface 1989 BTL Procedure Date: 01/01/2009 ??? Created by interface 1999 IVF (twin gestation) Procedure Date: 01/01/2009 ??? Created by interface LEEP WINIFRED 2005 Procedure Date: 01/01/2009 ??? Upper gi endoscopy, biopsy 09/07/2011 EGD WITH BIOPSY performed by Desmond WHIPPLE at [facility] ??? Colonoscopy, biopsy 09/07/2011 COLONOSCOPY FLEXIBLE, WITH BX performed by Desmond WHIPPLE at [facility] No family history on file. History Social History ??? Marital Status: Spouse [...] History Narrative ??? No narrative on file Allergies Allergen Reactions ??? Latex CIS - Rash, CIS - Rash ??? Penicillins CIS - Anaphylaxis, CIS - Anaphylaxis ??? Azithromycin CIS - Anaphylaxis, CIS - Anaphylaxis ??? Cis Free Text Allergy environmental. ??? Gloves, Latex CIS - Rash, CIS - Rash ??? Latex Dams CIS - Rash, CIS - Rash ??? Epinephrine CIS - fast heart rate, CIS - fast heart rate ??? Cis Free Text Allergy environmental. Current outpatient prescriptions ordered prior to encounter Medication Sig Dispense Refill ??? naproxen sodium (ANAPROX) 550 mg tablet 550 MG = 1 Tablet(s), PO, Twice daily PRN ??? traMADol (ULTRAM) 50 mg tablet 50 M.5-2, PO, QHS,PRN O: Recent Review Flowsheet Data View Complete Flowsheet Oncology Vitals 10/31/2011 Weight 57.153 kg Height 154.9 cm BSA (Calculated - sq m) 1.57 BMI (Calculated) 23.9 Temp - Temp src - Pulse - Heart Rate Source - Resp - BP 110/60 SpO2 - Oncology Vitals 10/31/2011 Height (cm) - Weight (kg) - BSA (m2) - BREAST: Breast with fibrocystic change bilat, no nipple discharge, 1cm mass left upper outer quadrant palpable, this is mass that will be removed on 11/06/11 ABD: soft, NT, no mass STEWARD/STEWARDESS CHIEF CARGO VESSEL: external genitalia architecturally normal, vagina pink rugated, cervix smooth, pap obtained BM: uterus AV, nontender, Adnexa without mass or tenderness bilat A: normal exam, lump that she feels on left sidewall is not palpable on todays exam. P: Pap with reflexive cytology. Reviewed screening guidelines. To call with questions, problems or concern, otherwise see Back in one year. documented in this encounter Plan of Treatment Upcoming Encounters Date Type Department Care Team (Late st Contact Info) Description 04/07/2024 3:20 PM EDT Office Visit Dermatology at [facility] [address] [place] [id number] Dayanna Ramírez MD [facility] [place] [address] documented as of this encounter Procedures Procedure Name Priority Date/Time Associated Diagnosis Comments STEWARD/STEWARDESS CHIEF CARGO VESSEL CYTOLOGY FINAL REPORT Routine 10/31/2011 3:54 PM EDT CYTOPATHOLOGY GYNECOLOGICAL Routine 10/31/2011 1:37 PM EDT Routine general medical examination at a [facility] documented in this encounter Results * STEWARD/STEWARDESS CHIEF CARGO VESSEL CYTOLOGY FINAL REPORT (10/31/2011 3:54 PM EDT) Turbine Operator Cytology Final Report ? [facility] ? Provider: ?? JESSICA FELIZ ?? Pt. Name: ?? YUMIKO DE LEON ? Acc #: ?[id number] ?Pt. ? Col Date: ?? 10/31/2011 ? /Sex: ?1970,(41 years),Female ? Rec Date: ?? 10/31/2011 ? LOC: ?5L ? CYTOPATHOLOGY: ??STEWARD/STEWARDESS CHIEF CARGO VESSEL ? ---Adequacy--- ? Specimen submitted is satisfactory. ? Endocervical component present. ? ---Cytopathologic Diagnosis--- ? NORMAL ? Negative for Intraepithelial Lesion or Malignancy (NILM). ? 11/02/11 ?? Screened by: ??LMY ??VEJ ? 11/02/11 ?? Verified by: ??Kadi TOSCANO(ASCP), Tess E - Senior Network Systems Engineer ? ---Comment--- ? Predominance of coccobacilli consistent with shift in vaginal jitendra. ? ---Clinical Information--- ? HPV Option: ? Reflex HPV ? Preparation: ?Liquid Based Pap ? Specimen Source: ?Cervical Endocervical LBP ? LMP: ?10/18/2011 ? Hormones?: ?No ? Hysterectomy?: ?No ?: ?No ?: ?No ? I.U.D.?: ?No ? Pelvic Radiation: ? No ? Prior STEWARD/STEWARDESS CHIEF CARGO VESSEL Therapy?: ? Yes-Cryotherapy ? Hist Abnl Pap/Biopsy?: ??Yes-pap after Cryo,LEEP ? Hist of HPV Vaccine?: ?? No ? Hist of Smoking?: ? No ? Hist of CAMERON exposure?: ??No ? Clinical Data, Significant Therapy and Clinical Impression: ? This Pap Test has been evaluated with the assistance of the ThinPrep Pap ? Test Imaging System. ? Note: ? The Pap test is a screening test for cervical cancer with an inherent ? false-negative rate dependent upon several variables. ??For further ? information please contact the [facility] Laboratory. ? [facility] ? Provider: ?? JESSICA FELIZ ?? Pt. Name: ?? YUMIKO DE LEON ? Acc #: ?[id number] ?Pt. ? Col Date: ?? 10/31/2011 ? /Sex: ?1970,(41 years),Female ? Rec Date: ?? 10/31/2011 ? LOC: ?5L ? CYTOPATHOLOGY: ??STEWARD/STEWARDESS CHIEF CARGO VESSEL ? Reference: ??[employer]. ??Outside Sales Account Representative of Pap Smear Results. ??In: ? Felipe BS, Bob HH, ed. ??The Pap Smear. ??[place]: ??Suraj, 2002: ? 71-77. MADELINE SANTILLANJESSICAGLADYS 10/31/2011 3:54 PM EDT Jessica eFliz APRN PATHOLOGY/CYTOLOGY ORDERABLES MADELINE DIAZ * Cytopathology Gynecological (10/31/2011 1:37 PM EDT) AP Specimen 10/31/2011 1:37 PM EDT 10/31/2011 1:37 PM EDT Narrative MADELINE DIAZ - 10/31/2011 1:37 PM EDT Specimen requisition ordered. ??Separate Pathology report to follow Jerry Mooney MD PATHOLOGY/CYTOLOGY O RDERABLES MADELINE DIAZ documented in this encounter Visit Diagnoses Diagnosis Routine general medical examination at a health care facility- Primary documented in this encounter
--- OUTSIDE RECORDS SUMMARY | 2024-03-20 22:11 | XMS_ITS | Encounter Summary ---
Author Organization [facility] Address [facility] [place] [address] Care Team Providers Care Adult School Counselor Name Role Phone Unavailable Primary Care Provider Unavailabl e Reason for Visit * Reason Comments Follow-up Encounter Details Date Type Department Care Team (Late st Contact Info) Description 09/07/2011 9:00 AM EST Follow[place] [address] Mer Morgan MD [facility] [place] [address] Breast mass (Primary Dx) Discharge Disposition: Home [...] Sign Reading Time Taken Comments Blood Pressure 105/61 09/07/2011 8:50 AM EST Pulse 64 09/07/2011 8:50 AM EST Temperature 36.7 ??C (98.1 ??F) 09/07/2011 8:50 AM ES T Respiratory Rate 16 09/07/2011 8:50 AM EST Oxygen Saturation 100% 09/07/2011 8:50 AM EST Inhaled Oxygen Concentration - - Weight 56.9 kg (125 lb 7.1 oz) 09/07/2011 8:50 A M EST Height 152 cm (4' 11.84) 09/07/2011 8:50 AM EST Body Mass Index 24.63 09/07/2011 8:50 AM EST documented in this encounter Progress Notes * Mer Morgan MD - 09/07/2011 9:23 AM EST HPI: Ms. Chang is a 41-year-old patient who returns for clinical follow up of a mass in her left breast. This has been present for 2 years. I last saw her nearly one year ago. She has been struggling with some other medical issues of late and cancelled appts for follow up prior to today. Yumiko reports that the mass Continues to wax and wane in size but overall is smaller than when she first noted it. Most recently she has lost 10 # due to stress and possible IBS and feels the mass may have resolved. She denies any skin changes, breast trauma,prior breast surgery or nipple discharge. She does have a history of cystic breast tissue and has not had cysts aspirated or breast biopsies in the past. She does do regular self-breast exams. ROS: weight loss as above. new diarrhea, cramping pain for which she is undergoing evaluation with GI. She reports doubling over with pain. Multiple tests planned. no hematachezia or BRBPR. No headaches, sob, adenopathy, lymphedema, sob, cough, musculoskeletal pains. Reproductive History: , had her first child at the age of 14 and did nurse her children. Menarche began at 11.Her LMP was 1110. HRT/OC: none Family History: Negative for breast cancer. 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 Recently relocated to [facility] and struggling with new [...] at the pec major border. This is 1x1cm and is less prominent but still detectable compared to previous exam. No other discrete masses noted. . Her right breast exam is similar in character to her left breast,without discrete masses. New imaging: last u/s in 11/21 was normal- no additional follow up of the area was recommended. Assessment: 41 yo female with family history of breast cancer now with soft and less discrete axillary mass in setting of dense breasts. Plan: Discussed my overall impression that this represents dense breast tissue/fibrocystic change. Interval improvement is quite encouraging. Yumiko is distracted by significant abdominal issues. Due to my low level of suspicion, I have recommended complete GI evaluation. If this results in any surgical intervention (ex- cholecystectomy), we could consider excision of this area simultaneously. Yumiko will call me once she has completed her GI evaluation. She understands that excisional biopsy is an option, but I feel clinical follow up is appropriate as well. I will follow up with her when she calls. documented in this encounter Plan of Treatment Upcoming Encounters Date Type Department Care Team (Late st Contact Info) Description 04/07/2024 3:20 PM EDT Office Visit Dermatology at [facility] [address] [place] [address] Dayanna Ramírez MD [facility] [place] [address] documented as of this encounter Visit Diagnoses Diagnosis Breast mass- Primary Lump or mass in breast documented in this encounter
== END 2024-03-20 22:04 | disposition home or self-care (01) ==
LOC: NCHCN 22:03
PROVIDERS: Visit Provider Nurse Practitioner Family
DX: I10 Essential (primary) hypertension (principal); E66.3 Overweight; Z68.29 Body mass index [BMI] 29.0-29.9, adult; R79.89 Other specified abnormal findings of blood chemistry
CPT/HCPCS: 80053; 80061; 83036

== ENCOUNTER 2024-11-26 11:22 | Outpatient (REF) | payer MEDICAID, SELFPAY ==
[2024-11-26 15:26] LABS: Abs Immature Grans 0.04 10^3/uL (0.0-0.06); Absolute Basophil Count 0.06 10^3/uL (0.0-0.2); Absolute Lymphocyte Count 2.34 10^3/uL (1.2-3.4); Absolute Monocyte Count 0.64 10^3/uL (0.1-0.8); Absolute Neutrophil Count 7.14 10^3/uL (1.2-6.7); Basophils % 0.6 %; HCT 44.2 % (36.0-46.0); HGB 14.4 g/dL (11.2-15.7); Immature Grans % 0.4 %; Lymphocytes % 22.7 %; MCH 27.3 pg (27.0-33.0); MCHC 32.6 % (32.0-36.0); MCV 84 fL (80-95); MPV 9.6 fL (8.0-11.0); Monocytes % 6.2 %; Neutrophils % 69.1 %; Platelet Count 321 10^3/uL (130-400); RBC 5.28 10^6/uL (3.93-5.22); RDW 12.9 % (11.7-14.6); WBC 10.32 10^3/uL (4.4-10.8)
[2024-11-26 15:46] LABS: ALT 48 U/L (14-59); AST 33 U/L (15-37); Albumin 4.7 g/dL (3.4-5.0); Alkaline Phosphatase 103 U/L (46-116); Anion Gap 9.9 mmol/L (3-11); BUN 15 mg/dL (7-18); Bilirubin, Total 1.2 mg/dL (0.2-1.0); CO2 29.1 mmol/L (21.0-32.0); CREATININE 0.8 mg/dL (0.55-1.02); Calcium 10.5 mg/dL (8.5-10.1); Chloride 103 mmol/L (98-107); Estimated GFR 86.42 (mL/min/1.73m2); Glucose 87 mg/dL (74-106); Potassium 3.9 mmol/L (3.5-5.1); Sodium 142 mmol/L (136-145); TSH (W/Ref FT4) 2.73 uIU/mL (0.36-3.74); Total Protein 8.2 g/dL (6.4-8.2)
== END 2024-11-26 11:23 | disposition home or self-care (01) ==
LOC: NCHCN 11:22
PROVIDERS: Visit Provider Nurse Practitioner Family
DX: F41.8 Other specified anxiety disorders (principal); I10 Essential (primary) hypertension
CPT/HCPCS: 80053; 84443; 85025